=== PATIENT | male | born 1945 | race Caucasian/White ===

== ENCOUNTER 2023-01-23 15:02 | Inpatient (IN) ==
[2023-01-23] MEDS ORDERED: IOVERSOL 350 MG 125mL Prefilled Syringe IV ONE (15:18)
--- NOTE | 2023-01-23 15:40 | CT Scan Report ---
CT angio neck with con, CT head/brain wo con, CT angio head w con CLINICAL HISTORY: neuro deficit, acute stroke suspected TECHNIQUE: Contiguous axial CT images of the head were acquired from the base of the skull to the maria luisa joseluis without intravenous contrast administration. CT angiography of the head and neck was performed f ollowing intravenous administration of iodinated contrast. Coronal and sagittal MIPS were obtained fr om the axial data set and were submitted for review. Automated dose lowering techniques and/or adjus tment according to patient size were utilized for this examination. All measurements were calculated based on NASCET criteria. CT DOSE: 1296.86 mGy.cm Comparison: None available at the time of this dictation. FINDINGS: CT head: Areas of decreased attenuation are present in the periventricular and subcortical [place] bilaterally consistent with small vessel ischemic disease. Generalized cerebral atrophy with comme nsurate enlargement of the ventricles, sulci, and cisterns is also present. There is no acute intracr anial hemorrhage or evidence of acute territorial infarction. No shift of the midline structures, mas s effect, or extra-axial abnormalities are shown. Atherosclerotic calcifications are present in the intracranial segments of the internal carotid arteries. Biapical emphysema is seen. Multiple thyroid nodules are seen. CTA Neck: A 3 vessel aortic arch is shown. There is no significant atherosclerotic plaque in the aor tic arch or the origins of the innominate, left common carotid, and left subclavian arteries. There is mild calcified atherosclerotic plaque at the bifurcation of the bilateral common carotid arteries without hemodynamically significant flow stenosis. There is no dissection present. The left vertebral artery is dominant. CTA Head: The anterior and posterior cerebral circulations are patent. Atherosclerotic disease is no cornel. IMPRESSION: 1. No acute intracranial hemorrhage, evidence of acute territorial infarction, or other acute intrac ranial disease process. 2. No occlusion, hemodynamically significant stenosis, or dissection in the major cervical arteries. 3. No occlusion, hemodynamically significant stenosis, aneurysm, dissection, or arteriovenous malfor mation in the major intracranial arteries. Assessment of stenosis of the internal carotid arteries is based on NASCET criteria. ACT 112: Negative or not required by law. Electronically signed by: Vinod Wyman M.D. 01/23/2023 3:39 PM
--- NOTE | 2023-01-23 15:47 | XRay Report ---
SINGLE VIEW CHEST CLINICAL HISTORY: Neurological deficit. Stroke like symptoms. FINDINGS: An AP, portable, upright chest radiograph is compared to study dated 12/30/2022. Correlation is made with chest CT dated 06/15/2013. A right paratracheal density is unchanged and corresponds to a thyroid goiter. The heart is enlarged noting atherosclerotic calcification of the thoracic aorta. Th ere is prominence of the pulmonary vasculature. Enlargement of the central pulmonary vessels suggest pulmonary artery hypertension. Emphysema and chronic interstitial thickening is similar to previous. A bullae in the left midlung is unchanged. Airspace opacities are seen at both lung bases. No large p leural effusion or pneumothorax is seen. The skeletal structures are osteopenic. The bony thorax is g rossly intact. Degenerative change is noted throughout the thoracic spine. IMPRESSION: 1. Cardiomegaly and emphysema with prominence of the pulmonary vasculature. Correlate clinically for evidence of fluid overload/congestive change. 2. Dependent airspace opacities could represent scarring/atelectasis. An infectious/inflammatory pneu monitis is not excluded and clinical correlation will be required. ACT 112: Negative or not required by law. Electronically signed by: Yunier Ledesma M.D. 01/23/2023 3:46 PM
[2023-01-23 15:49] LABS: Basophils # (auto) 0.06 K/uL (0.00-0.20); Basophils % (auto) 0.7 %; Eosinophils # (auto) 0.18 K/uL (0.00-0.50); Eosinophils % (auto) 2.1 %; Hematocrit (blood only) 43.4 % (42.0-52.0); Hemoglobin 13.9 g/dl (14.0-18.0); Immature Granulocytes # (auto) 0.07 K/uL (0.01-0.20); Immature Granulocytes % (auto) 0.8 %; Lymphocytes # (auto) 0.91 K/uL (1.20-3.40); Lymphocytes % (auto) 10.9 %; Mean Corpuscular Hemoglobin 29.6 pg (25.0-34.0); Mean Corpuscular Volume 92.3 fL (80.0-100.0); Mean Platelet Volume 9.4 fL (9.4-12.4); Monocytes % (auto) 8.4 %; Neutrophils # (auto) 6.46 K/uL (1.40-6.50); Neutrophils % (auto) 77.1 %; Platelet Count 381 K/uL (130-400); RDW Coefficient of Variation 14.1 % (11.5-14.5); RDW Standard Deviation 47.8 fL (36.4-46.3); White Blood Count 8.38 K/ul (4.8-10.8)
[2023-01-23] MEDS ORDERED: LORazepam 2 MG/1 ML VIAL ONE (15:55)
[2023-01-23 16:08] LABS: INR 1.1 (0.9-1.1); Partial Thromboplastin Time 29.3 Seconds (21.0-31.0); Prothrombin Time 12.1 Seconds (9.0-12.0)
[2023-01-23] MEDS ORDERED: levETIRAcetam 1,000 MG in 0.9 % SODIUM CHLORIDE 100 ML IV ONE (16:15)
[2023-01-23] MEDS ORDERED: LORazepam 2 MG/1 ML VIAL IV ONE (16:15)
[2023-01-23 16:23] LABS: Albumin Globulin Ratio 0.7 (0.9-2); Albumin Level 3.2 gm/dl (3.4-5.0); BUN Creatinine Ratio 17.9 (10-20); Bilirubin,Total 0.5 mg/dl (0.2-1.0); Calcium 9.8 mg/dl (8.6-10.3); Creatinine Clr Calc Pharmacy 43.2 ml/min; Globulin 4.8 gm/dl (2.5-4.0); Magnesium 1.9 mg/dl (1.7-2.4); Potassium 4.2 mmol/L (3.5-5.1)
[2023-01-23 16:28] LABS: Troponin I High Sensitivity 5.8 pg/ml (0-20)
--- NOTE | 2023-01-23 16:28 | Emergency Department Note ---
Impression & Plan Altered mental status ED Provider Note Diagnosis: Altered mental status Disposition: Admission INFORMANT: EMS, patient's CHIEF COMPLAINT: Acute altered mental status HPI: Patient 77-year-old male presenting with reported change in mental status acutely. EMS reports per family at 2:10 PM he was in the kitchen at home and acutely started to act strange and do weird things that are not normal for him. Patient would not talk. He however was walking on his own accord. Patient has had no prior strokes. Patient no reports of trauma. Patient was at his primary care physician's office this morning and was his normal self. Patient arrives with a good blood sugar, no hypertension. Patient not answering any questions however moving all fours. PAST MEDICAL HISTORY: See Below PAST SURGICAL HISTORY: See Below SOCIAL HISTORY: See Below HOME MEDICATIONS: See Below ALLERGIES: See Below VITALS: See Below PHYSICAL EXAMINATION: GENERAL: Well appearing, well nourished, NAD, non-toxic. EYE EXAM: Normal conjunctiva. OROPHARYNX: Moist mucus membranes. Grossly normal dentition. NECK: Supple, LUNGS: Clear to auscultation. Normal chest wall mechanics. HEART: NSR ABDOMEN: Abdomen soft, non-tender, normo-active bowel sounds, no masses, no rebound or guarding BACK: No CVA TTP. SKIN: No rashes and no bruising. UPPER EXTREMITIES: Upper extremities are grossly normal LOWER EXTREMITIES: Grossly normal, no edema. NEURO EXAM: A&O x3,, normal speech, moves all 4 extremities PSYCH: Cooperative MEDICAL DECISION MAKING: Patient is a 77-year-old male presenting with an acute onset of altered mental status. Patient's symptoms started 2:10 PM. Patient has no focal deficits curr ently. Patient's bottom teeth are out there may be a slight right-sided facial droop but patient will not smile for us or listen to commands. Patient not speaking so cannot assess his speech and if it is slurred. Patient moving all fours but a little weaker in the right lower extremity. Patient was activated as a code phillips upon my assessment within the first 10 minutes of arrival. Telestroke paged as of 3:25 PM Discussion with telestroke physician at 3:40 PM Discussed patient's case with telestroke physician in the room at 350 she recommends giving Ativan due to right-sided facial twitching and continuing to make TNK decision. Recommending giving Keppra 1 g load, also to perform MRI wi th quick segments. 1700 MRI performed and reviewed by telestroke physician no stroke present. No TNK administration advised. Recommends loading with another 1 g of Keppra and starting Keppra twice daily admission to the hospital for consultation with neurology team. Patient's case discussed with his and she is agreeable to current treatment plan. Patient's case discussed with the [facility] service who accepts the patient for further treatment evaluation. lab interpretation: No leukocytosis, no electrolyte abnormalities Triage Nursing notes reviewed and agree them. Vital Signs: reviewed and remarkable for: no significant abnormalities Diagnostics, as interpreted by me: ECG: Normal sinus rhythm no ST segment elevation or depressions Cardiac Monitoring: NSR Past Med/Surg History Social History Smoking Status: Unknown if ever smoked Tobacco Type: Cigarettes Preferred Language: [place] Feels Safe at Home: Yes Allergies Allergies Allergy/AdvReac Type Severity Reaction Status Date / Time No Known Allergies Allergy Unverified 01/23/23 15:22 Home Meds Home Medications Medication Instructions Recorded Confirmed albuterol sulfate 2.5 mg/3 mL 2.5 mg continuous nebulization Q4 01/23/23 01/23/23 (0.083 %) solution for nebulization PRN Wheezing amlodipine 2.5 mg-benazepril 10 mg 1 cap PO QAM 01/23/23 01/23/23 capsule cyanocobalamin (vitamin B-12) 1,000 mcg IM MONTHLY 01/23/23 01/23/23 1,000 mcg/mL injection solution prednisone 5 mg tablet 5 mg PO QAM PRN RA flares 01/23/23 01/23/23 Results & Data (ED) Vital Signs Vital Signs - 24 hr 01/23/23 14:54 01/23/23 16:59 01/23/23 16:17 Temperature 36.4 C L Temperature Source Axillary Pulse Rate 82 76 78 Pulse Rate from SpO2 Sensor 78 Respiratory Rate 14 18 Blood Pressure 142/82 H Blood Pressure Mean 102 Pulse Oximetry 95 97 Oxygen Delivery Method Room Air Sepsis Recent Fever Within 48 Hours No Sepsis New/Unexplained Change in Mental Status No Sepsis Action Taken by Nursing No Action Required 01/23/23 17:04 01/23/23 17:06 01/23/23 17:06 Temperature Temperature Source Pulse Rate 85 Pulse Rate from SpO2 Sensor 76 78 Respiratory Rate 11 L Blood Pressure 148/84 H Blood Pressure Mean 105 Pulse Oximetry 98 91 Oxygen Delivery Method Sepsis Recent Fever Within 48 Hours Sepsis New/Unexplained Change in Mental Status Sepsis Action Taken by Nursing 01/23/23 17:10 01/23/23 17:10 01/23/23 17:15 Temperature Temperature Source Pulse Rate 78 Pulse Rate from SpO2 Sensor 78 Respiratory Rate 19 Blood Pressure 139/84 156/84 H Blood Pressure Mean 102 108 Pulse Oximetry 96 Oxygen Delivery Method Sepsis Recent Fever Within 48 Hours Sepsis New/Unexplained Change in Mental Status Sepsis Action Taken by Nursing 01/23/23 17:15 Temperature Temperature Source Pulse Rate 83 Pulse Rate from SpO2 Sensor 81 Respiratory Rate 16 Blood Pressure Blood Pressure Mean Pulse Oximetry 96 Oxygen Delivery Method Sepsis Recent Fever Within 48 Hours Sepsis New/Unexplained Change in Mental Status Sepsis Action Taken by Nursing Laboratory Data 01/23/23 15:14 01/23/23 15:14 Lab Results 01/23/23 01/23/23 01/23/23 Range/Units 15:13 15:14 15:14 WBC 8.38 (4.8-10.8) K/ul RBC 4.70 (4.70-6.10) M/uL Hgb 13.9 L (14.0-18.0) g/dl Hct 43.4 (42.0-52.0) % MCV 92.3 (80.0-100.0) fL MCH 29.6 (25.0-34.0) pg MCHC 32.0 (32.0-36.0) g/dL RDW Std Deviation 47.8 H (36.4-46.3) fL RDW Coeff of Clint 14.1 (11.5-14.5) % Plt Count 381 (130-400) K/uL MPV 9.4 (9.4-12.4) fL Immature Gran % (Auto) 0.8 % Neut % (Auto) 77.1 % Lymph % (Auto) 10.9 % [place] % (Auto) 8.4 % Eos % (Auto) 2.1 % Baso % (Auto) 0.7 % Neut # (Auto) 6.46 (1.40-6.50) K/uL Lymph # (Auto) 0.91 L (1.20-3.40) K/uL [place] # (Auto) 0.70 H (0.11-0.59) K/uL Eos # (Auto) 0.18 (0.00-0.50) K/uL Baso # (Auto) 0.06 (0.00-0.20) K/uL Immature Gran # (Auto) 0.07 (0.01-0.20) K/uL PT 12.1 H (9.0-12.0) Seconds INR 1.1 (0.9-1.1) APTT 29.3 (21.0-31.0) Seconds PTT Ratio 1.0 Sodium (136-145) mmol/L Potassium (3.5-5.1) mmol/L Chloride (98-107) mmol/L Carbon Dioxide (21-32) mmol/L Anion Gap (3-11) BUN (6-23) mg/dl Creatinine (0.6-1.4) mg/dl Est Cr Clr Drug Dosing ml/min Est GFR ( Amer) ml/min Est GFR (Non-Af Amer) ml/min BUN/Creatinine Ratio (10-20) Glucose (70-99(Fasting)) mg/dl POC Glucose 144 H (70-99) mg/dl Calcium (8.6-10.3) mg/dl Magnesium (1.7-2.4) mg/dl Total Bilirubin (0.2-1.0) mg/dl AST (13-39) U/L ALT (7-52) U/L Alkaline Phosphatase (34-104) U/L Troponin I High Sens (0-20) pg/ml Total Protein (6.0-8.3) gm/dl Albumin (3.4-5.0) gm/dl Globulin (2.5-4.0) gm/dl Albumin/Globulin Ratio (0.9-2) // Range/Units 15:14 WBC (4.8-10.8) K/ul RBC (4.70-6.10) M/uL Hgb (14.0-18.0) g/dl Hct (42.0-52.0) % MCV (80.0-100.0) fL MCH (25.0-34.0) pg MCHC (32.0-36.0) g/dL RDW Std Deviation (36.4-46.3) fL RDW Coeff of Clint (11.5-14.5) % Plt Count (130-400) K/uL MPV (9.4-12.4) fL Immature Gran % (Auto) % Neut % (Auto) % Lymph % (Auto) % [place] % (Auto) % Eos % (Auto) % Baso % (Auto) % Neut # (Auto) (1.40-6.50) K/uL Lymph # (Auto) (1.20-3.40) K/uL [place] # (Auto) (0.11-0.59) K/uL Eos # (Auto) (0.00-0.50) K/uL Baso # (Auto) (0.00-0.20) K/uL Immature Gran # (Auto) (0.01-0.20) K/uL PT (9.0-12.0) Seconds INR (0.9-1.1) APTT (21.0-31.0) Seconds PTT Ratio Sodium 136 (136-145) mmol/L Potassium 4.2 (3.5-5.1) mmol/L Chloride 101 (98-107) mmol/L Carbon Dioxide 27 (21-32) mmol/L Anion Gap 8 (3-11) BUN 24 H (6-23) mg/dl Creatinine 1.34 (0.6-1.4) mg/dl Est Cr Clr Drug Dosing 43.2 ml/min Est GFR ( Amer) 58.0 ml/min Est GFR (Non-Af Amer) 50.0 ml/min BUN/Creatinine Ratio 17.9 (10-20) Glucose 146 H (70-99(Fasting)) mg/dl POC Glucose (70-99) mg/dl Calcium 9.8 (8.6-10.3) mg/dl Magnesium 1.9 (1.7-2.4) mg/dl Total Bilirubin 0.5 (0.2-1.0) mg/dl AST 11 L (13-39) U/L ALT 8 (7-52) U/L Alkaline Phosphatase 60 (34-104) U/L Troponin I High Sens 5.8 (0-20) pg/ml Total Protein 8.0 (6.0-8.3) gm/dl Albumin 3.2 L (3.4-5.0) gm/dl Globulin 4.8 H (2.5-4.0) gm/dl Albumin/Globulin Ratio 0.7 L (0.9-2) Administered Medications Discontinued Medications Levetiracetam 1,000 mg/ Sodium (Chloride) 110 mls @ 440 mls/hr IV NOW ONE Stop: 01/23/23 16:29 Last Admin: 01/23/23 17:35 Dose: 440 mls/hr Documented By: SHAGUFTA Levetiracetam 1,000 mg/ Sodium (Chloride) 110 mls @ 440 mls/hr IV NOW STA Stop: 01/23/23 17:21 Last Admin: 01/23/23 16:21 Dose: 440 mls/hr Documented By: SHAGUFTA Ioversol (Ioversol 350 Mg 125ml Prefilled Syringe) 119 ml IV ONCE ONE Stop: 01/23/23 15:19 Last Admin: 01/23/23 15:19 Dose: 119 ml Documented By: JOANNA Lorazepam (Lorazepam 2 Mg/1 Ml Vial) Confirm Administered Dose 2 mg .ROUTE .STK- MED ONE Stop: 01/23/23 15:56 Last Admin: 01/23/23 17:36 Dose: Not Given Documented By: SHAGUFTA Lorazepam (Lorazepam 2 Mg/1 Ml Vial) 1 mg IV NOW ONE Stop: 01/23/23 16:16 Last Admin: 01/23/23 15:57 Dose: 1 mg Documented By: SHAGUFTA Imaging Data Radiologist's Impression: Chest X-Ray 01/23/23 15:11 SINGLE VIEW CHEST CLINICAL HISTORY: Neurological deficit. Stroke like symptoms. FINDINGS: An AP, portable, upright chest radiograph is compared to study dated 12/30/2022. Correlation is made with chest CT dated 06/15/2013. A right paratracheal density is unchanged and corresponds to a thyroid goiter. The heart is enlarged noting atherosclerotic calcification of the thoracic aorta. There is prominence of the pulmonary vasculature. Enlargement of the central pulmonary vessels suggest pulmonary artery hypertension. Emphysema and chronic interstitial thickening is similar to previous. A bullae in the left midlung is unchanged. Airspace opacities are seen at both lung bases. No large pleural effusion or pneumothorax is seen. The skeletal structures are osteopenic. The bony thorax is grossly intact. Degenerative change is noted throughout the thoracic spine. IMPRESSION: 1. Cardiomegaly and emphysema with prominence of the pulmonary vasculature. Correlate clinically for evidence of fluid overload/congestive change. 2. Dependent airspace opacities could represent scarring/atelectasis. An infectious/inflammatory pneumonitis is not excluded and clinical correlation will be required. ACT 112: Negative or not required by law. Electronically signed by: Yunier Ledesma M.D. 01/23/2023 3:[address] 01/23/23 15:11 CT angio neck with con, CT head/brain wo con, CT angio head w con CLINICAL HISTORY: neuro deficit, acute stroke suspected TECHNIQUE: Contiguous axial CT images of the head were acquired from the base of the skull to the vertex without intravenous contrast administration. CT angiography of the head and neck was performed following intravenous administration of iodinated contrast. Coronal and sagittal MIPS were obtained from the axial data set and were submitted for review. Automated dose lowering techniques and/or adjustment according to patient size were utilized for this examination. All measurements were calculated based on NASCET criteria. CT DOSE: 1296.86 mGy.cm Comparison: None available at the time of this dictation. FINDINGS: CT head: Areas of decreased attenuation are present in the periventricular and subcortical white matter bilaterally consistent with small vessel ischemic disease. Generalized cerebral atrophy with commensurate enlargement of the frandy tricles, sulci, and cisterns is also present. There is no acute intracranial hemorrhage or evidence of acute territorial infarction. No shift of the midline structures, mass effect, or extra-axial abnormalities are shown. Atherosclerotic calcifications are present in the intracranial segments of the internal carotid arteries. Biapical emphysema is seen. Multiple thyroid nodules are seen. CTA Neck: A 3 vessel aortic arch is shown. There is no significant atherosclerotic plaque in the aortic arch or the origins of the innominate, left common carotid, and left subclavian arteries. There is mild calcified atherosclerotic plaque at the bifurcation of the bilateral common carotid arteries without hemodynamically significant flow stenosis. There is no dissection present. The left vertebral artery is dominant. CTA Head: The anterior and posterior cerebral circulations are patent. Atherosclerotic disease is noted. IMPRESSION: 1. No acute intracranial hemorrhage, evidence of acute territorial infarction, or other acute intracranial disease process. 2. No occlusion, hemodynamically significant stenosis, or dissection in the major cervical arteries. 3. No occlusion, hemodynamically significant stenosis, aneurysm, dissection, or arteriovenous malformation in the major intracranial arteries. Assessment of stenosis of the internal carotid arteries is based on NASCET criteria. ACT 112: Negative or not required by law. Electronically signed by: Vinod Wyman M.D. 01/23/2023 3:39 PM Head CTA 01/23/23 15:11 CT angio neck with con, CT head/brain wo con, CT angio head w con CLINICAL HISTORY: neuro deficit, acute stroke suspected TECHNIQUE: Contiguous axial CT images of the head were acquired from the base of the skull to the vertex without intravenous contrast administration. CT angiography of the head and neck was performed following intravenous administration of iodinated contrast. Coronal and sagittal MIPS were obtained from the axial data set and were submitted for review. Automated dose lowering techniques and/or adjustment according to patient size were utilized for this examination. All measurements were calculated based on NASCET criteria. CT DOSE: 1296.86 mGy.cm Comparison: None available at the time of this dictation. FINDINGS: CT head: Areas of decreased attenuation are present in the periventricular and subcortical white matter bilaterally consistent with small vessel ischemic disease. Generalized cerebral atrophy with commensurate enlargement of the ventricles, sulci, and cisterns is also present. There is no acute intracranial hemorrhage or evidence of acute territorial infarction. No shift of the midline structures, mass effect, or extra-axial abnormalities are shown. Atherosclerotic calcifications are present in the intracranial segments of the internal carotid arteries. Biapical emphysema is seen. Multiple thyroid nodules are seen. CTA Neck: A 3 vessel aortic arch is shown. There is no significant athero sclerotic plaque in the aortic arch or the origins of the innominate, left common carotid, and left subclavian arteries. There is mild calcified atherosclerotic plaque at the bifurcation of the bilateral common carotid arteries without hemodynamically significant flow stenosis. There is no dissecti on present. The left vertebral artery is dominant. CTA Head: The anterior and posterior cerebral circulations are patent. Atherosclerotic disease is noted. IMPRESSION: 1. No acute intracranial hemorrhage, evidence of acute territorial infarction, or other acute intracranial disease process. 2. No occlusion, hemodynamically significant stenosis, or dissection in the major cervical arteries. 3. No occlusion, hemodynamically significant stenosis, aneurysm, dissection, or arteriovenous malformation in the major intracranial arteries. Assessment of stenosis of the internal carotid arteries is based on NASCET criteria. ACT 112: Negative or not required by law. Electronically signed by: Vinod Wyman M.D. 01/23/2023 3:39 PM Neck CTA 01/23/23 15:11 CT angio neck with con, CT head/brain wo con, CT angio head w con CLINICAL HISTORY: neuro deficit, acute stroke suspected TECHNIQUE: Contiguous axial CT images of the head were acquired from the base of the skull to the vertex without intravenous contrast administration. CT angiography of the head and neck was performed following intravenous administration of iodinated contrast. Coronal and sagittal MIPS were obtained from the axial data set and were submitted for review. Automated dose lowering techniques and/or adjustment according to patient size were utilized for this examination. All measurements were calculated based on NASCET criteria. CT DOSE: 1296.86 mGy.cm Comparison: None available at the time of this dictation. FINDINGS: CT head: Areas of decreased attenuation are present in the periventricular and subcortical white matter bilaterally consistent with small vessel ischemic disease. Generalized cerebral atrophy with commensurate enlargement of the ventricles, sulci, and cisterns is also present. There is no acute intracranial hemorrhage or evidence of acute territorial infarction. No shift of the midline structures, mass effect, or extra-axial abnormalities are shown. Atherosclerot ic calcifications are present in the intracranial segments of the internal carotid arteries. Biapical emphysema is seen. Multiple thyroid nodules are seen. CTA Neck: A 3 vessel aortic arch is shown. There is no significant atherosclerotic plaque in the aortic arch or the origins of the innominate, left common carotid, and left subclavian arteries. There is mild calcified atherosclerotic plaque at the bifurcation of the bilateral common carotid arteries without hemodynamically significant flow stenosis. There is no dissection present. The left vertebral artery is dominant. CTA Head: The anterior and posterior cerebral circulations are patent. Atherosclerotic disease is noted. IMPRESSION: 1. No acute intracranial hemorrhage, evidence of acute territorial infarction, or other acute intracranial disease process. 2. No occlusion, hemodynamically significant stenosis, or dissection in the major cervical arteries. 3. No occlusion, hemodynamically significant stenosis, aneurysm, dissection, or arteriovenous malformation in the major intracranial arteries. Assessment of stenosis of the internal carotid arteries is based on NASCET criteria. ACT 112: Negative or not required by law. Electronically signed by: Vinod Wyman M.D. 01/23/2023 3:39 PM Brain MRI 01/23/23 16:08 MRI OF THE BRAIN WITHOUT IV CONTRAST CLINICAL HISTORY: Strokelike symptoms. COMPARISON STUDY: CT and CT angiogram of the brain dated 01/23/2023. TECHNIQUE: Fast scan MRI of the brain was performed to assess for acute stroke. This included axial diffusion-weighted images, axial ADC map, an axial gradient sequence, and a coronal FLAIR sequence. IV contrast was not administered for this examination. Note that this is not considered a full diagnostic MRI examination of the brain. FINDINGS: Brain parenchyma: There is age-related involutional change noting moderate to advanced subcortical and periventricular microangiopathic change. There is no evidence of hemorrhage or mass effect. There is no restricted diffusion typical for acute ischemia. Phillips-white matter differentiation appears preserved. Minimal dural thickening versus artifact is suggested overlying the left frontal convexity. This could not be corroborated on the CT images and is of doubtful significance. There there is no evidence of extra-axial fluid collection. There is linear calcification along the wall of the right lateral ventricle. Ventricles, sulci, and cisterns: Prominent secondary to involutional change. Sinuses and mastoids: Clear. Calvarium: No calvarial lesion is identified. IMPRESSION: There is no evidence of hemorrhage, mass effect, or acute ischemia. ACT 112: Negative or not required by law. Electronically signed by: Yunier Ledesma M.D. 01/23/2023 5:19 PM Discharge Plan Visit Data Chief Complaint: Altered Mental Status ED Provider: Rudi Alvarado Discharge Problem: Altered mental status Forms Stand Alone Forms: My [facility] [employer] Prescriptions Prescriptions: No Action amlodipine-benazepril 2.5-10 mg capsule 1 cap PO QAM cyanocobalamin (vitamin B-12) 1,000 mcg/mL solution 1,000 mcg IM MONTHLY albuterol sulfate 2.5 mg /3 mL (0.083 %) solution for nebulization 2.5 mg continuous nebulization Q4 PRN (Reason: Wheezing) prednisone 5 mg tablet 5 mg PO QAM PRN (Reason: RA flares) Referrals Referrals: William Joseph MD [Primary Care Provider] -
[2023-01-23] MEDS ORDERED: levETIRAcetam 1,000 MG in 0.9 % SODIUM CHLORIDE 100 ML IV STA (17:07)
--- NOTE | 2023-01-23 17:21 | Magnetic Resonance Report ---
MRI OF THE BRAIN WITHOUT IV CONTRAST CLINICAL HISTORY: Strokelike symptoms. COMPARISON STUDY: CT and CT angiogram of the brain dated 01/23/2023. TECHNIQUE: Fast scan MRI of the brain was performed to assess for acute stroke. This included axial d iffusion-weighted images, axial ADC map, an axial gradient sequence, and a coronal FLAIR sequence. IV contrast was not administered for this examination. Note that this is not considered a full diagnost ic MRI examination of the brain. FINDINGS: Brain parenchyma: There is age-related involutional change noting moderate to advanced subcortical an d periventricular microangiopathic change. There is no evidence of hemorrhage or mass effect. There i s no restricted diffusion typical for acute ischemia. Phillips-white matter differentiation appears prese rved. Minimal dural thickening versus artifact is suggested overlying the left frontal convexity. Thi s could not be corroborated on the CT images and is of doubtful significance. There there is no evide nce of extra-axial fluid collection. There is linear calcification along the wall of the right latera l ventricle. Ventricles, sulci, and cisterns: Prominent secondary to involutional change. Sinuses and mastoids: Clear. Calvarium: No calvarial lesion is identified. IMPRESSION: There is no evidence of hemorrhage, mass effect, or acute ischemia. ACT 112: Negative or not required by law. Electronically signed by: Yunier Ledesma M.D. 01/23/2023 5:19 PM
[2023-01-23] MEDS ORDERED: MAGNESIUM HYDROXIDE SUSP 30 ML UDC PO PRN (17:35)
[2023-01-23] MEDS ORDERED: ACETAMINOPHEN 325 MG TAB PO PRN (17:35)
[2023-01-23] MEDS ORDERED: ONDANSETRON INJ 2 MG/ML 2 ML VIAL IV PRN (17:35)
[2023-01-23] MEDS ORDERED: POLYETHYLENE (MIRALAX) 17 GM PACK PO PRN (17:35)
[2023-01-23] MEDS ORDERED: ALUMINUM/MAGNESIUM SUSP 30 ML UDC PO PRN (17:35)
--- NOTE | 2023-01-23 19:50 | History & Physical Report ---
Date of Service January 23, 2023 Assessment & Plan (1) Mixed aphasia: (2) HTN (hypertension): (3) Altered mental status: (4) Rheumatoid arthritis: (5) COPD (chronic obstructive pulmonary disease): (6) Fever of unknown origin: Plan Mr. Garcia is a 77-year-old male that presented to the ED after being noted to have altered mental status changes. Last well-known 1:05 PM 01/23/2023. Initially patient was not speaking and would not smile or follow any commands. Telestroke was paged at 3:25 PM and was recommended to give 1 g loading Keppra and obtain neurology imaging MRI was performed and negative no TNK administration was advised at that time and he was recommended to administer another 1 g of Keppra with continuation of Keppra 500 mg twice daily daily starting tomorrow. Chest x-ray negative for acute cardiopulmonary disease, head CT, head neck CTA negative for ischemia, midline shift, acute subdural or intracranial hemorrhage. Brain MRI negative for acute ischemia, masses or tumors or hemorrhage. Will repeat head CT in AM. reports intermittent fe vers over the past few days with the most recent one being yesterday. No leukocytosis WBC 8.38, no electrolyte disturbance. Creatinine 1.34 baseline creatinine per outpatient records 1.2-1.4 Recent ER visit on 12/30/2022 status post fall when he was leaving his home to take his for an outpatient follow-up appointment in [place]. He did report at that time some increased ANDERSEN and fatigue. No head injuries but was found to have a left finger dislocation/fracture. Since December 30 he has been otherwise well outside of chronic rheumatoid arthritis joint pain. LYME negative on 11/12/22. Has recently had a abnormal chest CT with lymphadenopathy and was scheduled to have a bronchoscopy but canceled due to the drive. Additional past medical history includes rheumatoid arthritis (on Humira Q 8 weeks), spinal stenosis, HTN, pernicious anemia, COPD emphysema. Was advised to follow up with Ortho.Patient saw Pulmonary on 11/16 with the following recommendations: Bronchoscopy under general anesthesia, Blood for connective tissue screening, Spirogram, Bronchodilator nebulization and flutter device. Patient canceled bronch as he did not want to drive to [facility] for it and wanted to possibly switch to [facility] for further evaluation. Complex gentleman with mixed aphagia and negative neuro imaging; will repeat head CT in AM and obtain blood, urine, and sputum cultures. Additionally with chronic lung disease, intermittent fever of unknown origin, deconditioned and sedentary from rheumatoid arthritis. Mixed aphasia: Altered mental status: Fever of unknown origin: acute uncontrolled Intermittent fevers; non toxic in appearance No leukocytosis WBC 8.38 Chest x-ray negative for acute cardiopulmonary disease Head CT, head neck CTA negative for ischemia, midline shift, acute subdural or intracranial hemorrhage. Brain MRI negative for acute ischemia, masses or tumors or hemorrhage; Will repeat head CT in AM. Tele stroke work up in ED; no TNK 2 G Keppra in ED; continue Keppra 500 mg IV BID in AM Obtain Echo and obtain EEG CXR in AM Check Vitamin B12 level; B12 was 1244 on 11/12/22 Blood, sputum, and urine cultures Gentle fluids @ 60mL/hour Start Ceftriaxone + Doxy and adjust based on culture results Rheumatoid arthritis: Chronic stable On Humira q. 8 weeks; hold while inpatient Takes prednisone 5 mg daily; continue Consider infected joint; correlate on exam COPD emphysema and bronchiectasis: acute uncontrolled Cough with thick yellow sputum Started on Ceftriaxone + Doxy in ED; reassess based on blood, urine and sputum cultures CT scan on 11/14: CT SCAN 11/14/22: 1. Extensive predominantly ground-glass nodularity with tree-in-bud morphology most pronounced lower lungs. Likely inflammatory/infectious. 2. Some additional more solid small lung nodularity which could also be inflammatory/infectious however close follow-up CT in 3 months suggested to assure stability/resolution. 3. Advanced emphysema. 4. Bilateral slightly bulky axillary lymphadenopathy, nonspecific. Correlate clinically. 5. See above for other details. 6. Heterogeneous enlarged right lobe of thyroid with suspected multiple internal nodules. Consider future thyroid ultrasound. Pt saw Pulmonary on 11/16 with the following recommendations: Bronchoscopy under general anesthesia, Blood for connective tissue screening, Spirogram, Bronchodilator nebulization and flutter device. Patient canceled bronch as he did not want to drive to [facility] for it and wanted to possibly switch to [facility] for further evaluation. CKD: chronic stable Creatinine 1.34; baseline per [facility] records 1.2-1.4 Hypertension: Chronic stable Takes amlodipine/benazepril; continue Dyslipidemia: chronic stable Does not take any medications for this Lipid panel on 11/12/22: TG 115, HDL 41, LDL 114 Disposition: PCP: Dr. Joseph CODE STATUS: Full code VTE prophylaxis:TEDS + SCDS for now I spent a total of 87 minutes coordinating, documenting, and providing care for this patient excluding time spent in the performance of separately billed services. All of the aforementioned completed while collaborating with the assigned attending physician for a full treatment plan. Please see their addendum for further details. Admission and Anticipated Discharge Date Admission Date: January 23, 2023 History of Present Illness Chief Complaint: AMS Primary Care Provider: William Joseph MD Mr. Garcia is a 77-year-old male that presented to the ED after being noted to have altered mental status changes. Last well-known 1:05 PM 01/23/2023. Initially patient was not speaking and would not smile or follow any commands. Telestroke was paged at 3:25 PM and was recommended to give 1 g loading Keppra and obtain neurology imaging MRI was performed and negative no TNK administration was advised at that time and he was recommended to administer another 1 g of Keppra with continuation of Keppra 500 mg twice daily daily starting tomorrow. Chest x-ray negative for acute cardiopulmonary disease, head CT, head neck CTA negative for ischemia, midline shift, acute subdural or intracranial hemorrhage. Brain MRI negative for acute ischemia, masses or tumors or hemorrhage. Will repeat head CT in AM. reports intermittent fevers over the past few days with the most recent one being yesterday. No leukocytosis WBC 8.38, no electrolyte disturbance. Creatinine 1.34 baseline creatinine per outpatient records 1.2-1.4 Recent ER visit on 12/30/2022 status post fall when he was leaving his home to take his for an outpatient follow-up appointment in [place]. He did report at that time some increased ANDERSEN and fatigue. No head injuries but was found to have a left finger dislocation/fracture. Since December 30 he has been otherwise well outside of [facility] rheumatoid arthritis joint pain. Has recently had a abnormal chest CT with lymphadenopathy and was scheduled to have a bronchoscopy but canceled due to the drive. Additional past medical history includes rheumatoid arthritis (on Humira Q 8 weeks), spinal stenosis, HTN, pernicious anemia, COPD emphysema. Was advised to follow up with Ortho. Per review of outpatient records patient reported at his pulmonary appointment that he has had recent weight loss with decreased appetite. CT scan on 11/14: CT SCAN 11/14/22: 1. Extensive predominantly ground-glass nodularity with tree-in-bud mo rphology most pronounced lower lungs. Likely inflammatory/infectious. 2. Some additional more solid small lung nodularity which could also be inflammatory/infectious however close follow-up CT in 3 months suggested to assure stability/resolution. 3. Advanced emphysema. 4. Bilateral slightly bulky axillary lymphadenopathy, nonspecific. Correlate clinically. 5. See above for other details. 6. Heterogeneous enlarged right lobe of thyroid with suspected multiple internal nodules. Consider future thyroid ultrasound. Patient saw Pulmonary on 11/16 with the following recommendations: Bronchoscopy under general anesthesia (no C arm and no EBUS), Blood for connective tissue screening, Spirogram, Bronchodilator nebulization and flutter device. Patient canceled bronchoscopy as he did not want to drive to [facility] for it and wanted to possibly switch to [facility] for further evaluation. On examination, patients at bedside. Pt unable to converse or follow commands; by the end of our conversation he was able to shrug shoulders and wave goodbye to me. Otherwise, unable to provide any history. reports improvement from when they arrived to ED as patient was able to laugh and hold her hand. TRISTON. is ill herself with cancer and colostomy. She states they depend heavily on each other. Open to inpatient rehab. States that he does not have an official advanced directive; knows that he would not want any halfway nutrition if it would come to that. 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 Significant smoking history of about [id number] smoking history; q uit in 1990. No pets at home and on no supplemental O2. Complex gentleman with mixed aphagia and negative neuro imaging; will repeat head CT in AM and obtain blood, urine, and sputum cultures. Additionally with chronic lung disease, including bronchiectasis, intermittent fever of unknown origin, deconditioned and sedentary from rheumatoid arthritis. Patient will be admitted for further evaluation and management. Please see A/P for further details. Allergies Allergy/AdvReac Type Severity Reaction Status Date / Time No Known Allergies Allergy Unverified 01/23/23 15:22 Home Medications Medication Instructions Recorded Confirmed Type adalimumab 40 mg/0.8 mL 40 mg subcut Q14D 01/23/23 01/23/23 History subcutaneous pen kit (Humira Pen) albuterol sulfate 2.5 mg/3 mL 2.5 mg continuous nebulization Q4 01/23/23 01/23/23 History (0.083 %) solution for nebulization PRN Wheezing amlodipine 2.5 mg-benazepril 10 mg 1 cap PO QAM 01/23/23 01/23/23 History capsule cyanocobalamin (vitamin B-12) 1,000 mcg IM MONTHLY 01/23/23 01/23/23 History 1,000 mcg/mL injection solution prednisone 5 mg tablet 5 mg PO QAM PRN RA flares 01/23/23 01/23/23 History Past Med/Surg History Medical History (Updated 01/23/23 @ 20:32 by MARCY Enciso) Fever of unknown origin HTN (hypertension) Pernicious anemia Rheumatoid arthritis Spinal stenosis Surgical History (Updated 01/23/23 @ 20:30 by MARCY Enciso) No pertinent past surgical history Social History (Updated 01/23/23 @ 20:31 by MARCY Enciso) Smoking Status: Former smoker Tobacco Type: Cigarettes Second Hand Exposure: No; Do You Dip or Chew Tobacco: No; Tobacco Cessation Education Requested by Patient: No Hx Alcohol Use: No Hx Substance Use: No Preferred Language: Nepali Communication Ability: Impaired Damper Fitter Required: No Beliefs That Will Affect Care: None Current Living Situation: Spouse Other Information That Helps Us Care for You: No Feels Safe at Home: Yes Safety Concerns: Feels Safe At This Time Assistive Devices: Cane, Denture - Upper, Denture - Lower, Glasses and Wheelchair Review of Systems Review of Systems: Unobtainable due to cognitive status Physical Exam Physical Exam: Neuro: AAOx1, PERRLA, mixed aphagia, memory changes, NIH 7. Pt able to shrug shoulders and wave hands on command HEENT: head normocephalic, moist mucus membranes CV: S1/S2, (-) M/G/R, (-) edema, cap refill < 3 seconds Resp: Lungs CTA in all abarca. On RA GI: Abdomen S/NT/ND, Ax4 bowel sounds, (-) CVA tenderness Musculoskeletal: 5/5 B/L UE strength, 5/5 B/L LE strength. No gait disturbance Skin: (-) rashes , (-) erythema. (+) bunyons on bl great toes with erythema. Psych: unable to assess; laughing unintentionally Results & Data Results & Data Vital Signs (Past 12 Hours) Vital Signs Temp Pulse Resp BP Pulse Ox O2 Del Method 01/23/23 19:27 69 16 136/69 94 Room Air 01/23/23 18:45 69 16 94 01/23/23 18:30 68 18 92 01/23/23 18:15 68 14 95 01/23/23 18:00 70 15 97 01/23/23 17:50 72 01/23/23 17:15 83 16 96 01/23/23 17:15 156/84 H 01/23/23 17:10 78 19 96 01/23/23 17:10 139/84 01/23/23 17:06 148/84 H 01/23/23 17:06 85 11 L 91 01/23/23 17:04 98 01/23/23 16:17 78 18 97 01/23/23 16:59 76 01/23/23 14:54 36.4 C L 82 14 142/82 H 95 Room Air Laboratory Results Short CBC 01/23/23 Range/Units 15:14 WBC 8.38 (4.8-10.8) K/ul Hgb 13.9 L (14.0-18.0) g/dl Hct 43.4 (42.0-52.0) % Plt Count 381 (130-400) K/uL BMP 01/23/23 15:14 Sodium 136 Potassium 4.2 Chloride 101 Carbon Dioxide 27 BUN 24 H Creatinine 1.34 Glucose 146 H Calcium 9.8 Liver Function 01/23/23 Range/Units 15:14 Total Bilirubin 0.5 (0.2-1.0) mg/dl AST 11 L (13-39) U/L ALT 8 (7-52) U/L Alkaline Phosphatase 60 (34-104) U/L Albumin 3.2 L (3.4-5.0) gm/dl Diagnostic Findings Chest X-Ray 01/23/23 15:11 SINGLE VIEW CHEST CLINICAL HISTORY: Neurological deficit. Stroke like symptoms. FINDINGS: An AP, portable, upright chest radiograph is compared to study dated 12/30/2022. Correlation is made with chest CT dated 06/15/2013. A right paratr acheal density is unchanged and corresponds to a thyroid goiter. The heart is enlarged noting atherosclerotic calcification of the thoracic aorta. There is prominence of the pulmonary vasculature. Enlargement of the central pulmonary vessels suggest pulmonary artery hypertension. Emphysema and chronic interstitial thickening is similar to previous. A bullae in the left midlung is unchanged. Airspace opacities are seen at both lung bases. No large pleural effusion or pneumothorax is seen. The skeletal structures are osteopenic. The bony thorax is grossly intact. Degenerative change is noted throughout the thoracic spine. IMPRESSION: 1. Cardiomegaly and emphysema with prominence of the pulmonary vasculature. Correlate clinically for evidence of fluid overload/congestive change. 2. Dependent airspace opacities could represent scarring/atelectasis. An infectious/inflammatory pneumonitis is not excluded and clinical correlation will be required. ACT 112: Negative or not required by law. Electronically signed by: Yunier Ledesma M.D. 01/23/2023 3:[address] 01/23/23 15:11 CT angio neck with con, CT head/brain wo con, CT angio head w con CLINICAL HISTORY: neuro deficit, acute stroke suspected TECHNIQUE: Contiguous axial CT images of the head were acquired from the base of the skull to the vertex without intravenous contrast administration. CT angiography of the head and neck was performed following intravenous administration of iodinated contrast. Coronal and sagittal MIPS were obtained from the axial data set and were submitted for review. Automated dose lowering techniques and/or adjustment according to patient size were utilized for this examination. All measurements were calculated based on NASCET criteria. CT DOSE: 1296.86 mGy.cm Comparison: None available at the time of this dictation. FINDINGS: CT head: Areas of decreased attenuation are present in the periventricular and subcortical white matter bilaterally consistent with small vessel ischemic disease. Generalized cerebral atrophy with commensurate enlargement of the ventricles, sulci, and cisterns is also present. There is no acute intracranial hemorrhage or evidence of acute territorial infarction. No shift of the midline structures, mass effect, or extra-axial abnormalities are shown. Atherosclerotic calcifications are present in the intracranial segments of the internal carotid arteries. Biapical emphysema is seen. Multiple thyroid nodules are seen. CTA Neck: A 3 vessel aortic arch is shown. There is no significant atheroscl erotic plaque in the aortic arch or the origins of the innominate, left common carotid, and left subclavian arteries. There is mild calcified atherosclerotic plaque at the bifurcation of the bilateral common carotid arteries without hemodynamically significant flow stenosis. There is no dissection present. The left vertebral artery is dominant. CTA Head: The anterior and posterior cerebral circulations are patent. Atherosclerotic disease is noted. IMPRESSION: 1. No acute intracranial hemorrhage, evidence of acute territorial infarction, or other acute intracranial disease process. 2. No occlusion, hemodynamically significant stenosis, or dissection in the major cervical arteries. 3. No occlusion, hemodynamically significant stenosis, aneurysm, dissection, or arteriovenous malformation in the major intracranial arteries. Assessment of stenosis of the internal carotid arteries is based on NASCET criteria. ACT 112: Negative or not required by law. Electronically signed by: Vinod Wyman M.D. 01/23/2023 3:39 PM Head CTA 01/23/23 15:11 CT angio neck with con, CT head/brain wo con, CT angio head w con CLINICAL HISTORY: neuro deficit, acute stroke suspected TECHNIQUE: Contiguous axial CT images of the head were acquired from the base of the skull to the vertex without intravenous contrast administration. CT angiography of the head and neck was performed following intravenous administration of iodinated contrast. Coronal and sagittal MIPS were obtained from the axial data set and were submitted for review. Automated dose lowering techniques and/or adjustment according to patient size were utilized for this examination. All measurements were calculated based on NASCET criteria. CT DOSE: 1296.86 mGy.cm Comparison: None available at the time of this dictation. FINDINGS: CT head: Areas of decreased attenuation are present in the periventricular and subcortical white matter bilaterally consistent with small vessel ischemic disease. Generalized cerebral atrophy with commensurate enlargement of the ventricles, sulci, and cisterns is also present. There is no acute intracranial hemorrhage or evidence of acute territorial infarction. No shift of the midline structures, mass effect, or extra-axial abnormalities are shown. Atherosclerotic calcifications are present in the intracranial segments of the internal carotid arteries. Biapical emphysema is seen. Multiple thyroid nodules are seen. CTA Neck: A 3 vessel aortic arch is shown. There is no significant atherosclerotic plaque in the aortic arch or the origins of the innominate, left common carotid, and left subclavian arteries. There is mild calcified atherosclerotic plaque at the bifurcation of the bilateral common carotid arteries without hemodynamically significant flow stenosis. There is no dissection present. The left vertebral artery is dominant. CTA Head: The anterior and posterior cerebral circulations are patent. Atherosclerotic disease is noted. IMPRESSION: 1. No acute intracranial hemorrhage, evidence of acute territorial infarction, or other acute intracranial disease process. 2. No occlusion, hemodynamically significant stenosis, or dissection in the major cervical arteries. 3. No occlusion, hemodynamically significant stenosis, aneurysm, dissection, or arteriovenous malformation in the major intracranial arteries. Assessment of stenosis of the internal carotid arteries is based on NASCET criteria. ACT 112: Negative or not required by law. Electronically signed by: Vinod Wyman M.D. 01/23/2023 3:39 PM Neck CTA 01/23/23 15:11 CT angio neck with con, CT head/brain wo con, CT angio head w con CLINICAL HISTORY: neuro deficit, acute stroke suspected TECHNIQUE: Contiguous axial CT images of the head were acquired from the base of the skull to the vertex without intravenous contrast administration. CT angiography of the head and neck was performed following intravenous administration of iodinated contrast. Coronal and sagittal MIPS were obtained from the axial data set and were submitted for review. Automated dose lowering techniques and/or adjustment according to patient size were utilized for this examination. All measurements were calculated based on NASCET criteria. CT DOSE: 1296.86 mGy.cm Comparison: None available at the time of this dictation. FINDINGS: CT head: Areas of decreased attenuation are present in the periventricular and subcortical white matter bilaterally consistent with small vessel ischemic disease. Generalized cerebral atrophy with commensurate enlargement of the ventricles, sulci, and cisterns is also present. There is no acute intracranial hemorrhage or evidence of acute territorial infarction. No shift of the midline structures, mass effect, or extra-axial abnormalities are shown. Atherosclerotic calcifications are present in the intracranial segments of the internal carotid arteries. Biapical emphysema is seen. Multiple thyroid nodules are seen. CTA Neck: A 3 vessel aortic arch is shown. There is no significant atherosclerotic plaque in the aortic arch or the origins of the innominate, left common carotid, and left subclavian arteries. There is mild calcified atherosclerotic plaque at the bifurcation of the bilateral common carotid arteries without hemodynamically significant flow stenosis. There is no dissection present. The left vertebral artery is dominant. CTA Head: The anterior and posterior cerebral circulations are patent. Atherosclerotic disease is noted. IMPRESSION: 1. No acute intracranial hemorrhage, evidence of acute territorial infarction, or other acute intracranial disease process. 2. No occlusion, hemodynamically significant stenosis, or dissection in the major cervical arteries. 3. No occlusion, hemodynamically significant stenosis, aneurysm, dissection, or arteriovenous malformation in the major intracranial arteries. Assessment of stenosis of the internal carotid arteries is based on NASCET criteria. ACT 112: Negative or not required by law. Electronically signed by: Vinod Wyman M.D. 01/23/2023 3:39 PM Brain MRI 01/23/23 16:08 MRI OF THE BRAIN WITHOUT IV CONTRAST CLINICAL HISTORY: Strokelike symptoms. COMPARISON STUDY: CT and CT angiogram of the brain dated 01/23/2023. TECHNIQUE: Fast scan MRI of the brain was performed to assess for acute stroke. This included axial diffusion-weighted images, axial ADC map, an axial gradient sequence, and a coronal FLAIR sequence. IV contrast was not administered for this examination. Note that this is not considered a full diagnostic MRI examination of the brain. FINDINGS: Brain parenchyma: There is age-related involutional change noting moderate to advanced subcortical and periventricular microangiopathic change. There is no evidence of hemorrhage or mass effect. There is no restricted diffusion typical for acute ischemia. Phillips-white matter differentiation appears preserved. Minimal dural thickening versus artifact is suggested overlying the left frontal convexity. This could not be corroborated on the CT images and is of doubtful significance. There there is no evidence of extra-axial fluid collection. There is linear calcification along the wall of the right lateral ventricle. Ventricles, sulci, and cisterns: Prominent secondary to involutional change. Sinuses and mastoids: Clear. Calvarium: No calvarial lesion is identified. IMPRESSION: There is no evidence of hemorrhage, mass effect, or acute ischemia. ACT 112: Negative or not required by law. Electronically signed by: Yunier Ledesma M.D. 01/23/2023 5:19 PM Code Status & VTE Plan Code Status Full code in the event of cardiac or respiratory arrest VTE Prophylaxis Plan VTE Prophylaxis will be ordered: Yes Supervising Physician Co-Signing Physician Notes Pt seen and examined by me, care coordinated w/ E. MARCY Velasquez, pls refer to her note above for further detail. Pt is a 77 yo M that presents w/altered mental status. Last well-known 1:05 PM 01/23/2023. This morning pt was seen by his PCP in the office and mental status was at baseline per pt's . Then later patient was having trouble speaking and would not smile or follow any commands. Telestroke was called and recommended to start Keppra. CT head, CTA head and neck, mri - negative, no TNK administration was advised at that time. Currently pt is sitting up in bed in [facility]. He is awake and pleasant but does not answer appropriately. he is moving extremities. Pt's is present at the bedside, she feels he is better than when they first came to the hospital. She is concerned as she reports pt having on and off fevers. Last evening she says his temp was 99F. Blood cultures were ordered, UA, CXR, sputum cultx. Will repeat head CT in AM and will further consult w/ neurology. No leukocytosis WBC 8.38, no electrolyte disturbance. Creatinine 1.34 baseline creatinine per outpatient records 1.2-1.4 Recent ER visit on 12/30/2022 status post fall when he was leaving his home to take his for an outpatient follow-up appointment in [place]. He did report at that time some increased ANDERSEN and fatigue. He recently had an abnormal chest CT with lymphadenopathy and was scheduled to have a bronchoscopy but canceled due to the drive. Additional past medical history includes rheumatoid arthritis (on Humira Q 8 weeks), spinal stenosis, HTN, pernicious anemia, COPD emphysema. Patient saw Pulmonary medicine on 11/16 with the following recommendations: Bronchoscopy under general anesthesia, Blood for connective tissue screening, Spirogram, Bronchodilator nebulization and flutter device. Patient canceled bronch as he did not want to drive to [facility] for it and wanted to possibly switch to [facility] for further evaluation. Will further discuss w/ [facility] pulmonary med. Will start empiric abx w/ [email or web address]. MD Asiya
[2023-01-23 21:13] LABS: Appearance Urine Clear (Clear); Bacteria Urine Automated Negative (Negative); Bilirubin Urine Negative (Negative); Blood Urine 3+ (Negative); Color Urine Orange; Epithelial Cell Urine Auto >30 /lpf (0-5); Glucose Urine UA Negative (Negative); Ketones Urine Negative (Negative); Leukocyte Esterase Urine Negative (Negative); Nitrite Urine Negative (Negative); Protein Urine Trace (Negative); RBC Urine Automated >30 /hpf (0-4); Specific Gravity Urine 1.041 (1.000-1.030); Urobilinogen Urine Negative (Negative); pH Urine 6.5 (4.5-7.5)
[2023-01-23 21:42] LABS: Renal Epithelial Cells Urine 0-5 /lpf (0-5)
[2023-01-23] MEDS: cefTRIAXone SODIUM 2,000 MG in DEXTROSE 5% 50 ML IV SCH (21:45)
[2023-01-23] MEDS: SODIUM CHLORIDE 0.9% 1,000 ML IV SCH (21:45)
[2023-01-23] MEDS: DOXYCYCLINE HYCLATE 100 MG in DEXTROSE 5% 100 ML IV SCH (21:51)
[2023-01-24 06:36] LABS: Hematocrit (blood only) 35.7 % (42.0-52.0); Hemoglobin 11.9 g/dl (14.0-18.0); Mean Corpuscular Hemoglobin 29.8 pg (25.0-34.0); Mean Corpuscular Hgb Conc 33.3 g/dL (32.0-36.0); Mean Corpuscular Volume 89.3 fL (80.0-100.0); Mean Platelet Volume 9.6 fL (9.4-12.4); Platelet Count 347 K/uL (130-400); RDW Standard Deviation 45.7 fL (36.4-46.3); White Blood Count 8.62 K/ul (4.8-10.8)
[2023-01-24 07:01] LABS: Albumin Globulin Ratio 0.7 (0.9-2); Albumin Level 2.7 gm/dl (3.4-5.0); BUN Creatinine Ratio 17.6 (10-20); Bilirubin,Total 0.4 mg/dl (0.2-1.0); Calcium 8.8 mg/dl (8.6-10.3); Est GFR (African American) 80.6 ml/min; Est GFR (Non-African American) 69.6 ml/min; Globulin 4.1 gm/dl (2.5-4.0); Magnesium 1.6 mg/dl (1.7-2.4); Phosphorus 2.7 mg/dl (2.5-4.9); Potassium 4.1 mmol/L (3.5-5.1); Total Protein 6.8 gm/dl (6.0-8.3)
[2023-01-24] MEDS ORDERED: MAGNESIUM SULFATE / D5W 1 GM/100 ML BAG IV ONE (08:15)
[2023-01-24] MEDS: DOXYCYCLINE HYCLATE 100 MG in DEXTROSE 5% 100 ML IV SCH ×2 (08:22→20:37)
[2023-01-24] MEDS: levETIRAcetam 500 MG in 0.9 % SODIUM CHLORIDE 100 ML IV SCH ×2 (08:47→20:34)
--- NOTE | 2023-01-24 08:47 | Neurology Consultation ---
Date of Consultation January 24, 2023 Assessment & Plan (1) Mixed aphasia: (2) Abnormal CT of brain: Plan Patient has an acute onset of a mixed aphasia (mostly expressive but some receptive). There is no history that the patient has an underlying dementia and he is quite awake and alert. There is no evidence for delirium. Imaging study shows no stroke but there is a concern about a left frontal abnormality consistent with cerebritis or inflammation. He has no other focal findings on neurologic examination and he does not have meningeal signs. 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 Patient was given levetiracetam. I am not convinced the patient had any seizures but if he does have an inflammation that would put him at risk for seizures Recommendations: 1. MRI of the brain with without contrast. 2. LP to evaluate for inflammation or infection. 3. Laboratory studies to include ESR, CRP, TSH, B12, Lyme antibody titers. 4. Keep levetiracetam 500 mg twice daily, for now. 5. Additional recommendations will be made after the above test and depending on his clinical course. Overall, I spent a total of 90 minutes with this case including review of records, review of CT and MRI films, direct evaluation the patient at bedside, report generation, and discussing the case with the patient and RN at bedside , Dr. Ferreira radiology, and Dr. Streeter at bedside, including differential diagnosis and treatment options. History of Present Illness Reason for Consultation: Patient is a 77-year-old, who was asked to see at the request of Dr. Braden, for neurologic consultation regarding acute mental status changes. Requesting Physician: Dr. Braden Attending Physician: Yanira Streeter MD History of Present Illness Patient has a history of rheumatoid arthritis and hypertension. Earlier this month he fell and ended up fracturing multiple bones and dislocating finger all in his left hand. He came to the emergency room on December 30 for a nonspecific illness/fever they noted the fractures in his hand when he was not concerned about. Then saw Dr. Bingham January 02 who treated the fractures conservatively as the patient did not want much done as he needed to care for his . Juju arently his mental status and speech and language were unremarkable as no one noted anything abnormal. Sometime on January 23 in the early afternoon he stops speaking or following commands. He arrived at the emergency room at 2:54 p.m. with a blood pressure of 142/82, pulse 82 and regular, respiratory rate 14, O2 saturation 95%. His neurologic examination was nonfocal but he had trouble speaking and communicating. Chest x-ray showed cardiomegaly and COPD. CT scan of the head was unremarkable. CT angiography of the head and neck were unremarkable. MRI of the brain (short protocol) showed no acute stroke but there was moderate generalized atrophy and small-vessel ischemic disease. I reviewed these films. The patient was loaded with Keppra but I am not certain any seizure activity was noted. The patient had no fever in the emergency room and CBC was unremarkable. Chem profile was unremarkable This morning the patient was very confused according to the nursing staff and not able to follow commands or express himself well. Repeat CT scan of the head showed some left frontal sulcal effacement that was not entirely clear on the previous CT but in retrospect looking at the MRI there may have been some changes on diffusion imaging suggesting some inflammation in the left frontal head region. I reviewed the CT scan films and MRI with Dr. Ferreira and I am concerned there is a left frontal cerebritis or inflammation present. The patient is very difficult to communicate with but he does not seem to have a headache, lightheadedness, vision problems, or any new weakness or numbness. Laboratory studies today show a mild anemia and an unremarkable Chem profile. He has been afebrile in his white count is only 8.6. Allergies Allergy/AdvReac Type Severity Reaction Status Date / Time No Known Allergies Allergy Unverified 01/23/23 15:22 Home Medications Medication Instructions Recorded Confirmed Type adalimumab 40 mg/0.8 mL 40 mg subcut Q14D 01/23/23 01/23/23 History subcutaneous pen kit (Humira Pen) albuterol sulfate 2.5 mg/3 mL 2.5 mg continuous nebulization Q4 01/23/23 01/23/23 History (0.083 %) solution for nebulization PRN Wheezing amlodipine 2.5 mg-benazepril 10 mg 1 cap PO QAM 01/23/23 01/23/23 History capsule cyanocobalamin (vitamin B-12) 1,000 mcg IM MONTHLY 01/23/23 01/23/23 History 1,000 mcg/mL injection solution prednisone 5 mg tablet 5 mg PO QAM PRN RA flares 01/23/23 01/23/23 History Patient History Medical History Fever of unknown origin HTN (hypertension) Pernicious anemia Rheumatoid arthritis Spinal stenosis Surgical History No pertinent past surgical history Social History Smoking Status: Former smoker Tobacco Type: Cigarettes Second Hand Exposure: No; Do You Dip or Chew Tobacco: No; Tobacco Cessation Education Requested by Patient: No Hx Alcohol Use: No Hx Substance Use: No Preferred Language: Sami Communication Ability: Impaired 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 The patient is awake, alert, and attentive. He makes eye contact and has good expressions he tries to understand and answer questions. It is clear he is attempting to answer the questions but only okay or I see comes out. At t imes, a specific question might get a no answer. He really does not speak any other words. He can follow 1 step commands although it can be difficult. His mood seems normal and his affect seems appropriate. I can not assess his memory because of the aphasia Pupils are 4 mm bilaterally and reactive to light. Extraocular eye muscles are intact without nystagmus. Visual acuity and visual abarca seem normal grossly to confrontation. There are no deficits to sensation in the face in all 3 distributions of the fifth cranial nerve bilaterally. Corneal reflexes are positive bilaterally. Facial strength and symmetry was normal bilaterally. Hearing seems normal bilaterally. Palate moves well without asymmetry. There is normal sternocleidomastoid and trapezius (shoulder shrug) strength bilaterally. Tongue is midline with good strength bilaterally. Neck has a full range of motion without discomfort. Gait was not tested but stance sitting seem fine With outstretched arms there is no drift. There are no resting, postural, or action tremors. There is no ataxia with finger to nose testing. There is good facility in the hands. No other abnormal involuntary movements are noted. Motor strength is 5/5 diffusely in the arms bilaterally including deltoids, biceps, triceps, brachioradialis, wrist flexors and extensors, back tender pulp drier, and intrinsic hand muscles. Motor strength is 5/5 diffusely in the legs bilaterally including hip flexors, quadriceps, hamstrings, gastrocnemius, tibialis anterior, tibialis posterior, and Peroneii muscles. Toe extensors are normal and there is good bulk in the extensor digitorum brevis muscles bilaterally. The limbs have good tone without rigidity or spasticity. There is no atrophy noted in the muscles. Muscle bulk is normal, there is no tenderness to palpa tion, no myotonia to percussion, and no fasciculations seen. Sensory examination is intact to touch and pin throughout all 4 limbs diffusely. Reflexes are 2/4 in the biceps, triceps, brachioradialis, quadriceps, and Achilles tendons bilaterally. There is no clonus bilaterally. Toes are downgoing with plantar stimulation bilaterally. Peripheral pulses are present and of normal quality distally in all 4 limbs. There is no peripheral edema noted in the limbs. Results & Data Vital Signs (Past 12 Hours) Vital Signs Temp Pulse Pulse Resp BP Pulse Ox O2 Del Method 01/24/23 07:52 36.9 C 84 20 148/88 H 93 Room Air 01/24/23 03:00 36.5 C 69 18 142/78 H 97 Room Air 01/23/23 23:00 75 01/23/23 23:00 36.5 C 75 19 145/85 H 98 Room Air PG Care Time/CCT Total # of Minutes Spent Total Time Spent with Patient: Total time spent is greater than 50% in coordination of care (as documented) at patient's floor/unit and/or counseling patient: Coding Level of Care Code 00018 INT INP/OBS CARE 3/75MIN Diagnoses Mixed aphasia R47.[address] of brain R90.89 Time Spent (min) 90
--- NOTE | 2023-01-24 08:57 | CT Scan Report ---
CT OF THE HEAD WITHOUT CONTRAST CLINICAL HISTORY: Aphasia. COMPARISON STUDY: Head CT, CTA of the head and MRI of the brain January 23, 2023. CT DOSE: 625.80 mGy.cm TECHNIQUE: Helical axial images of the head were obtained without IV contrast. Automated exposure con trol was utilized for the study. A dose lowering technique was utilized adhering to the principles o f ALARA. FINDINGS: No acute intracranial hemorrhage is present. Ventricular system is unremarkable. Basal cist erns are patent. There are no findings to suggest acute dural sinus thrombosis or acute territorial i nfarct. There is equivocal sulcal effacement within the anterior left frontal lobe shown best on axia l image 23 of 32. This was not clearly evident on prior CT or MRI. This may be artifactual. There are no significant calvarial abnormalities. IMPRESSION: 1. No acute intracranial hemorrhage. 2. Apparent sulcal effacement within the anterior left frontal lobe, not clearly evident on prior CT or MRI. This may be artifactual however a follow-up MRI of the brain with and without contrast is rec ommended for further evaluation. ACT 112: Negative or not required by law. Electronically signed by: Matthew Ferreira M.D. 01/24/2023 8:55 AM
--- NOTE | 2023-01-24 10:41 | Hospitalist Progress Note ---
Date of Service January 24, 2023 Assessment & Plan (1) Mixed aphasia: (2) HTN (hypertension): (3) Altered mental status: (4) Rheumatoid arthritis: (5) COPD (chronic obstructive pulmonary disease): (6) Fever of unknown origin: Plan Mixed Aphasia: Altered mental status: 77-year-old male with history of rheumatoid arthritis (on Humira Q 8 weeks), spinal stenosis, HTN, pernicious anemia, COPD emphysema that presented to the ED after being noted to have altered mental status changes. Last well-known 1:05 PM 01/23/2023. Initially patient was not speaking and would not smile or follow any commands. Telestroke was paged at 3:25 PM and keppra loading with Neurological imaging were recommended. Chest x-ray negative for acute cardiopulmonary disease Head CT, head/ neck CTA were negative for ischemia, midline shift, acute subdural or intracranial hemorrhage. Brain MRI w/o co on 01/23/23 was negative for acute ischemia, masses or tumors or hemorrhage. Repeat CT head this AM noted sulcal effacement within anterior frontal lobe. Differentials are broad at this time Possible inflammatory process going on in the brain Discussed with Neurologist Get MRI brain w/wo co Get LP and CSF studies TSH, Lyme panel, CRP, ESR Continue Keppra Per Admitting Dr, had reported intermittent fevers at home. No fever since admission. No leukocytosis Follow up infectious workup Rheumatoid arthritis: Chronic stable On Humira q. 8 weeks; hold while inpatient Takes prednisone 5 mg daily; continue Consider infected joint; correlate on exam COPD emphysema and bronchiectasis: Per Admitting Dr, patient had cough with thick yellow sputum CT scan on 11/14: CT SCAN 11/14/22: 1. Extensive predominantly ground-glass nodularity with tree-in-bud morphology most pronounced lower lungs. Likely inflammatory/infectious. 2. Some additional more solid small lung nodularity which could also be inflammatory/infectious however close follow-up CT in 3 months suggested to assure stability/resolution. 3. Advanced emphysema. 4. Bilateral slightly bulky axillary lymphadenopathy, nonspecific. Correlate clinically. 5. See above for other details. 6. Heterogeneous enlarged right lobe of thyroid with suspected multiple internal nodules. Consider future thyroid ultrasound. Pt saw Pulmonary on 11/16 and recommended Bronchoscopy. Patient canceled bronch as he did not want to [facility] and wanted to possibly switch to [facility] for further evaluation. CXR on this admission noted dependent airspace opacities, cardiomegaly and emphysema Continue ceftriaxone and doxycycline started on admission Will follow up Pulm consult placed by Admitting provider CKD: On admission, Creatinine 1.34; baseline per [facility] records 1.2-1.4 Cr is 1.02 today Hypertension: Continue amlodipine/benazepril Dyslipidemia: Does not take any medications for this Lipid panel on 11/12/22: TG 115, HDL 41, LDL 114 Disposition: PCP: Dr. Joseph CODE STATUS: Full code VTE prophylaxis:TEDS + SCDS for now Called and updated her I spent a total of 55 minutes coordinating, documenting and providing care for this patient excluding time spent in performance of separately billed services Admission and Anticipated Discharge Date Admission Date: January 23, 2023 Subjective Patient seen and examined ROS is difficult to obtain due to aphasia Patient has expressive aphasia and some receptive aphasia as well He is awake and alert, occasionally follows commands but answers 'Ok' to every question. Physical Exam Constitutional: + well hydrated; no acute distress Eyes: PERRL, conjunctivae normal, anicteric sclerae ENMT: external ear and nose normal, oropharynx normal Respiratory: normal respiratory effort, lungs clear to auscultation Cardiovascular: Rate/Rhythm: regular rate and regular rhythm S1 S2 Gastrointestinal (Abdomen): normal bowel sounds, soft, nontender, no hep atosplenomegaly Musculoskeletal: No pedal edema Neurologic: PERRL, EOMI, accommodation nl, no face palsy, no dysarthria Power is normal across UE and LE +Aphasia No pronator drift Results & Data Results & Data Vital Signs (Past 12 Hours) Vital Signs Temp Pulse Pulse Resp BP Pulse Ox O2 Del Method 01/24/23 09:57 77 01/24/23 09:14 Room Air 01/24/23 07:52 36.9 C 84 20 148/88 H 93 Room Air 01/24/23 03:00 36.5 C 69 18 142/78 H 97 Room Air 01/23/23 23:00 75 01/23/23 23:00 36.5 C 75 19 145/85 H 98 Room Air Laboratory Results Abnormal lab results 01/23/23 01/23/23 01/23/23 Range/Units 15:13 15:14 15:14 RBC (4.70-6.10) M/uL Hgb 13.9 L (14.0-18.0) g/dl Hct (42.0-52.0) % RDW Std Deviation 47.8 H (36.4-46.3) fL Lymph # (Auto) 0.91 L (1.20-3.40) K/uL Knott # (Auto) 0.70 H (0.11-0.59) K/uL ESR (0-20) mm/hr PT 12.1 H (9.0-12.0) Seconds Sodium (136-145) mmol/L BUN (6-23) mg/dl Glucose (70-99(Fasting)) mg/dl POC Glucose 144 H (70-99) mg/dl Magnesium (1.7-2.4) mg/dl AST (13-39) U/L ALT (7-52) U/L C-Reactive Protein (0-0.5) mg/dl Albumin (3.4-5.0) gm/dl Globulin (2.5-4.0) gm/dl Albumin/Globulin Ratio (0.9-2) Ur Specific Benton (1.000-1.030) Urine Protein (Negative) Urine Blood (Negative) Urine RBC (Auto) (0-4) /hpf U Epithel Cells (Auto) (0-5) /lpf 01/23/23 01/23/23 01/24/23 Range/Units 15:14 Unknown 05:52 RBC 4.00 L (4.70-6.10) M/uL Hgb 11.9 L (14.0-18.0) g/dl Hct 35.7 L (42.0-52.0) % RDW Std Deviation (36.4-46.3) fL Lymph # (Auto) (1.20-3.40) K/uL Knott # (Auto) (0.11-0.59) K/uL ESR (0-20) mm/hr PT (9.0-12.0) Seconds Sodium (136-145) mmol/L BUN 24 H (6-23) mg/dl Glucose 146 H (70-99(Fasting)) mg/dl POC Glucose (70-99) mg/dl Magnesium (1.7-2.4) mg/dl AST 11 L (13-39) U/L ALT (7-52) U/L C-Reactive Protein (0-0.5) mg/dl Albumin 3.2 L (3.4-5.0) gm/dl Globulin 4.8 H (2.5-4.0) gm/dl Albumin/Globulin Ratio 0.7 L (0.9-2) Ur Specific Benton 1.041 H (1.000-1.030) Urine Protein Trace H (Negative) Urine Blood 3+ H (Negative) Urine RBC (Auto) >30 H (0-4) /hpf U Epithel Cells (Auto) >30 H (0-5) /lpf 01/24/23 01/24/23 01/24/23 Range/Units 05:52 10:14 10:14 RBC (4.70-6.10) M/uL Hgb (14.0-18.0) g/dl Hct (42.0-52.0) % RDW Std Deviation (36.4-46.3) fL Lymph # (Auto) (1.20-3.40) K/uL Knott # (Auto) (0.11-0.59) K/uL ESR 126 H (0-20) mm/hr PT (9.0-12.0) Seconds Sodium 134 L (136-145) mmol/L BUN (6-23) mg/dl Glucose 105 H (70-99(Fasting)) mg/dl POC Glucose (70-99) mg/dl Magnesium 1.6 L (1.7-2.4) mg/dl AST 9 L (13-39) U/L ALT 6 L (7-52) U/L C-Reactive Protein 17.56 H (0-0.5) mg/dl Albumin 2.7 L (3.4-5.0) gm/dl Globulin 4.1 H (2.5-4.0) gm/dl Albumin/Globulin Ratio 0.7 L (0.9-2) Ur Specific Benton (1.000-1.030) Urine Protein (Negative) Urine Blood (Negative) Urine RBC (Auto) (0-4) /hpf U Epithel Cells (Auto) (0-5) /lpf
--- NOTE | 2023-01-24 10:58 | Pulmonary Consultation ---
Date of Consultation January 24, 2023 History of Present Illness Attending Physician: Yanira Streeter MD Allergies Allergy/AdvReac Type Severity Reaction Status Date / Time No Known Allergies Allergy Unverified 01/23/23 15:22 Home Medications Medication Instructions Recorded Confirmed Type adalimumab 40 mg/0.8 mL 40 mg subcut Q14D 01/23/23 01/23/23 History subcutaneous pen kit (Humira Pen) albuterol sulfate 2.5 mg/3 mL 2.5 mg continuous nebulization Q4 01/23/23 01/23/23 History (0.083 %) solution for nebulization PRN Wheezing amlodipine 2.5 mg-benazepril 10 mg 1 cap PO QAM 01/23/23 01/23/23 History capsule cyanocobalamin (vitamin B-12) 1,000 mcg IM MONTHLY 01/23/23 01/23/23 History 1,000 mcg/mL injection solution prednisone 5 mg tablet 5 mg PO QAM PRN RA flares 01/23/23 01/23/23 History Patient History Medical History Fever of unknown origin HTN (hypertension) Pernicious anemia Rheumatoid arthritis Spinal stenosis Surgical History No pertinent past surgical history Social History Smoking Status: Former smoker Tobacco Type: Cigarettes Second Hand Exposure: No; Do You Dip or Chew Tobacco: No; Tobacco Cessation Education Requested by Patient: No Hx Alcohol Use: No Hx Substance Use: No Preferred Language: Anguillan Communication Ability: Impaired 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 Beliefs That Will Affect Care: None Current Living Situation: Spouse Other Information That Helps Us Care for You: No Feels Safe at Home: Yes Safety Concerns: Feels Safe At This Time Assistive Devices: Cane, Denture - Upper, Denture - Lower, Glasses and Wheelchair Results & Data Results & Data Vital Signs (Past 12 Hours) Vital Signs Temp Pulse Pulse Resp BP Pulse Ox O2 Del Method 01/24/23 09:57 77 01/24/23 09:14 Room Air 01/24/23 07:52 36.9 C 84 20 148/88 H 93 Room Air 01/24/23 03:00 36.5 C 69 18 142/78 H 97 Room Air 01/23/23 23:00 75 01/23/23 23:00 36.5 C 75 19 145/85 H 98 Room Air PG Care Time/CCT Total # of Minutes Spent Total Time Spent with Patient: Total time spent is greater than 50% in coordination of care (as documented) at patient's floor/unit and/or counseling patient: Coding Diagnoses
[2023-01-24 11:14] LABS: C Reactive Protein 17.56 mg/dl (0-0.5)
[2023-01-24 11:38] LABS: Lyme Ab IgG w/WB Rflx Negative (Negative); Lyme Ab IgM w/WB Rflx Negative (Negative)
--- NOTE | 2023-01-24 13:01 | Magnetic Resonance Report ---
MRI OF THE BRAIN WITHOUT IV CONTRAST CLINICAL HISTORY: Change in mental status. Aphasia. COMPARISON STUDY: MRI of the brain dated 12/27/2022. CT of the brain dated 01/24/2023. TECHNIQUE: MRI of the brain was performed utilizing various T1 and T2-weighted sequences in the axial and sagittal planes. IV contrast was not administered for this examination. The examination is sever jules degraded by motion artifact. This degrades diagnostic utility. Coronal FLAIR imaging and postcont rast imaging could not be performed FINDINGS: Brain parenchyma: There is age-related involutional change noting moderate to advanced subcortical an d periventricular microangiopathic and hepatic disease. There is no evidence of hemorrhage or mass ef fect. There are small foci of restricted diffusion seen along the high left frontal convexity on axia l image #24, which is new from yesterday. This measures up to 1.1 cm in aggregate dimension, and it i s unclear if this involves the cortex of the extra-axial space. There is apparent extra-axial soft ti ssue thickening in this region suggested on sagittal image #14. No additional foci of restricted diff usion are identified. The cerebellar tonsils are normal in configuration. Ventricles, sulci, and cisterns: Prominent secondary to involutional change. Pituitary and sella: Unremarkable. Intracranial vasculature: Normal flow voids are maintained at the skull base. Orbits: The bony orbits are grossly intact. Orbital contents are normal in appearance. Sinuses and mastoids: Grossly clear. Calvarium: Unremarkable. Cervical cord: Partially visualized cervical spinal cord is normal in morphology and signal intensity . IMPRESSION: 1. Incomplete and severely motion compromises examination. This degrades diagnostic utility. 2. There are small foci of restricted diffusion identified on the high left anterior frontal convexit y. This is new from yesterday, and it is unclear if this involves the cortex or the extra-axial space . There is also apparent extra-axial soft tissue thickening suggested at this site. Differential cons iderations include a focus of acute to subacute ischemia or possibly infection. A lumbar puncture is recommended for further evaluation. 3. No additional foci of restricted diffusion are identified. There is no evidence of hemorrhage or m ass effect. ACT 112: Negative or not required by law. Electronically signed by: Yunier Ledesma M.D. 01/24/2023 12:59 PM
[2023-01-24] MEDS: SODIUM CHLORIDE 0.9% 1,000 ML IV SCH (13:34)
--- NOTE | 2023-01-24 15:40 | Pulmonary Consultation ---
Date of Consultation January 24, 2023 Assessment & Plan (1) Mixed aphasia: (2) Rheumatoid arthritis: (3) Abnormal CT of brain: (4) Bronchiectasis: (5) COPD (chronic obstructive pulmonary disease) with emphysema: Plan ASSESSMENT/PLAN: 1. Aphasia and STroke-Like Symptoms -undergoing stroke workup -Left anterior frontal convexity on brain MRI which may represent acute to subacute ischemia or possible infection. 2. Bronchiectasis Hx? -previously undergoing workup for COPD/Emphysema -recommend HRCT of Chest -continue further followup and workup after stoke evaluation -will require bronchoscopy -Patient can have his pulmonary evaluation and work-up done on an outpatient basis and followed up by [facility] pulmonary clinic 3. Tobacco Abuse Hx -quit 20-25yrs ago 4. Abnormal Chest CT Scan -Advanced Emphysema 5. Thyroid Nodules per Chest CT scan 6. Rheumatoid Arthritis History of Present Illness Reason for Consultation: Further work-up for COPD and emphysema vs bronchiectasis. Requesting Physician: Eliane Mcdaniel MD Attending Physician: Yanira Streeter MD History of Present Illness This 77-year-old gentleman who presented to [facility] ED due to altered mental status changes and is currently being worked up for possible stroke has been asked to be seen by the pulmonary service due to a recent work-up regarding his pulmonary status of distinguishing bronchiectasis versus COPD/emphysema. Due to patient's difficulty to communicate this history was taken from his , Charleen and the initial history and physical that was taken yesterday. Mr. Garcia was diagnosed with bronchiectasis many years ago according to his and has had increasing episodes usually nocturnally of coughing but no increase in regards to pulmonary secretions. She states that he has also had progressive weight loss over the past several years. He has not smoked since his 40s but did smoke for 20+ years. Most recently patient had seen a [facility] spa manager back in October who felt that he may have been misdiagnosed with bronchiectasis and recommended he undergo a bronchoscopy however patient canceled due to his spa manager being at [facility] and not wanting to drive there and considering [place] [facility]. Patient was provided with inhalers when he was initially diagnosed with bronchiectasis however he has not used them consistently and is currently not requiring any supplemental oxygen at this time. Allergies Allergy/AdvReac Type Severity Reaction Status Date / Time No Known Allergies Allergy Unverified 01/23/23 15:22 Home Medications Medication Instructions Recorded Confirmed Type adalimumab 40 mg/0.8 mL 40 mg subcut Q14D 01/23/23 01/23/23 History subcutaneous pen kit (Humira Pen) albuterol sulfate 2.5 mg/3 mL 2.5 mg continuous nebulization Q4 01/23/23 01/23/23 History (0.083 %) solution for nebulization PRN Wheezing amlodipine 2.5 mg-benazepril 10 mg 1 cap PO QAM 01/23/23 01/23/23 History capsule cyanocobalamin (vitamin B-12) 1,000 mcg IM MONTHLY 01/23/23 01/23/23 History 1,000 mcg/mL injection solution prednisone 5 mg tablet 5 mg PO QAM PRN RA flares 01/23/23 01/23/23 History Patient History Medical History Fever of unknown origin HTN (hypertension) Pernicious anemia Rheumatoid arthritis Spinal stenosis Surgical History No pertinent past surgical history Social History Smoking Status: Former smoker Tobacco Type: Cigarettes Second Hand Exposure: No; Do You Dip or Chew Tobacco: No; Tobacco Cessation Education Requested by Patient: No Hx Alcohol Use: No Hx Substance Use: No Preferred Language: Albanian Communication Ability: Impaired Pit Clerk Required: No Beliefs That Will Affect Care: None Current Living Situation: Spouse Other Information That Helps Us Care for You: No Feels Safe at Home: Yes Safety Concerns: Feels Safe At This Time Assistive Devices: Cane, Denture - Upper, Denture - Lower, Glasses and Wheelchair Review of Systems Review of Systems: Unobtainable due to cognitive status Physical Exam Constitutional: WD/WN, vitals as above Patient is unable to provide answers to questions due to his aphasic nature. Currently being evaluated for stroke. Eyes: PERRL, conjunctivae normal, anicteric sclerae ENMT: external ear and nose normal, oropharynx normal Neck: trachea midline, no thyromegaly Respiratory: normal respiratory effort, lungs clear to auscultation Cardiovascular: RRR, no murmur, no edema Gastrointestinal (Abdomen): normal bowel sounds, soft, nontender, no hepatosplenomegaly Musculoskeletal: no cyanosis or clubbing, extremities motor strength 5/5 Patient does have bony deformities to her knees feet and hands consistent with arthritis Skin: no rashes, warm and dry Neurologic: Patient is aphasic with dysarthric speech and echolalia. Can shrug his shoulders and move his upper extremities. Psychiatric: A+Ox3, euthymic affect Results & Data Results & Data Vital Signs (Past 12 Hours) Vital Signs Temp Pulse Pulse Resp BP Pulse Ox O2 Del Method 01/24/23 15:21 36.5 C 71 14 152/89 H 97 Room Air 01/24/23 11:33 36.6 C 70 18 136/78 96 Room Air 01/24/23 09:57 77 01/24/23 09:14 Room Air 01/24/23 07:52 36.9 C 84 20 148/88 H 93 Room Air Laboratory Results Laboratory Results WBC 8.62 K/ul (4.8-10.8) 01/24/23 05:52 RBC 4.00 M/uL (4.70-6.10) L 01/24/23 05:52 Hgb 11.9 g/dl (14.0-18.0) L 01/24/23 05:52 Hct 35.7 % (42.0-52.0) L 01/24/23 05:52 MCV 89.3 fL (80.0-100.0) 01/24/23 05:52 MCH 29.8 pg (25.0-34.0) 01/24/23 05:52 MCHC 33.3 g/dL (32.0-36.0) 01/24/23 05:52 RDW Std Deviation 45.7 fL (36.4-46.3) 01/24/23 05:52 RDW Coeff of [place] 14.0 % (11.5-14.5) 01/24/23 05:52 Plt Count 347 K/uL (130-400) 01/24/23 05:52 MPV 9.6 fL (9.4-12.4) 01/24/23 05:52 Immature Gran % (Auto) 0.8 % 01/23/23 15:14 Neut % (Auto) 77.1 % 01/23/23 15:14 Lymph % (Auto) 10.9 % 01/23/23 15:14 [place] % (Auto) 8.4 % 01/23/23 15:14 Eos % (Auto) 2.1 % 01/23/23 15:14 Baso % (Auto) 0.7 % 01/23/23 15:14 Neut # (Auto) 6.46 K/uL (1.40-6.50) 01/23/23 15:14 Lymph # (Auto) 0.91 K/uL (1.20-3.40) L 01/23/23 15:14 [place] # (Auto) 0.70 K/uL (0.11-0.59) H 01/23/23 15:14 Eos # (Auto) 0.18 K/uL (0.00-0.50) 01/23/23 15:14 Baso # (Auto) 0.06 K/uL (0.00-0.20) 01/23/23 15:14 Immature Gran # (Auto) 0.07 K/uL (0.01-0.20) 01/23/23 15:14 ESR 126 mm/hr (0-20) H 01/24/23 10:14 PT 12.1 Seconds (9.0-12.0) H 01/23/23 15:14 INR 1.1 (0.9-1.1) 01/23/23 15:14 APTT 29.3 Seconds (21.0-31.0) 01/23/23 15:14 PTT Ratio 1.0 01/23/23 15:14 Sodium 134 mmol/L (136-145) L 01/24/23 05:52 Potassium 4.1 mmol/L (3.5-5.1) 01/24/23 05:52 Chloride 102 mmol/L (98-107) 01/24/23 05:52 Carbon Dioxide 24 mmol/L (21-32) 01/24/23 05:52 Anion Gap 8 (3-11) 01/24/23 05:52 BUN 18 mg/dl (6-23) 01/24/23 05:52 Creatinine 1.02 mg/dl (0.6-1.4) D 01/24/23 05:52 Est Cr Clr Drug Dosing 53.0 ml/min 01/24/23 05:52 Est GFR ( Amer) 80.6 ml/min 01/24/23 05:52 Est GFR (Non-Af Amer) 69.6 ml/min 01/24/23 05:52 BUN/Creatinine Ratio 17.6 (10-20) 01/24/23 05:52 Glucose 105 mg/dl (70-99(Fasting)) H 01/24/23 10:14 POC Glucose 144 mg/dl (70-99) H 01/23/23 15:13 Uric Acid 6.3 mg/dl (2.6-7.2) 01/23/23 20:35 Calcium 8.8 mg/dl (8.6-10.3) 01/24/23 05:52 Phosphorus 2.7 mg/dl (2.5-4.9) 01/24/23 05:52 Magnesium 1.6 mg/dl (1.7-2.4) L 01/24/23 05:52 Total Bilirubin 0.4 mg/dl (0.2-1.0) 01/24/23 05:52 AST 9 U/L (13-39) L 01/24/23 05:52 ALT 6 U/L (7-52) L 01/24/23 05:52 Alkaline Phosphatase 50 U/L (34-104) 01/24/23 05:52 Troponin I High Sens 5.8 pg/ml (0-20) 01/23/23 15:14 C-Reactive Protein 17.56 mg/dl (0-0.5) H 01/24/23 10:14 Total Protein 6.8 gm/dl (6.0-8.3) 01/24/23 05:52 Albumin 2.7 gm/dl (3.4-5.0) L 01/24/23 05:52 Globulin 4.1 gm/dl (2.5-4.0) H 01/24/23 05:52 Albumin/Globulin Ratio 0.7 (0.9-2) L 01/24/23 05:52 Vitamin B12 780 pg/ml (180-914) 01/24/23 05:52 Procalcitonin 0.26 ng/ml (0-0.5) 01/23/23 15:14 TSH 1.318 uIu/ml (0.300-4.500) 01/24/23 10:14 Urine Color [place] 01/23/23 Unknown Urine Appearance Clear (Clear) 01/23/23 Unknown Urine pH 6.5 (4.5-7.5) 01/23/23 Unknown Ur Specific [place] 1.041 (1.000-1.030) H 01/23/23 Unknown Urine Protein Trace (Negative) H 01/23/23 Unknown Urine Glucose (UA) Negative (Negative) 01/23/23 Unknown Urine Ketones Negative (Negative) 01/23/23 Unknown Urine Blood 3+ (Negative) H 01/23/23 Unknown Urine Nitrite Negative (Negative) 01/23/23 Unknown Urine Bilirubin Negative (Negative) 01/23/23 Unknown Urine Urobilinogen Negative (Negative) 01/23/23 Unknown Ur Leukocyte Esterase Negative (Negative) 01/23/23 Unknown Urine WBC (Auto) 1-5 /hpf (0-5) 01/23/23 Unknown Urine RBC (Auto) >30 /hpf (0-4) H 01/23/23 Unknown U Hyaline Cast (Auto) 1-5 /lpf (0-5) 01/23/23 Unknown U Epithel Cells (Auto) >30 /lpf (0-5) H 01/23/23 Unknown Urine Bacteria (Auto) Negative (Negative) 01/23/23 Unknown Ur Renal Epithelial Cell 0-5 /lpf (0-5) 01/23/23 Unknown Lyme Disease IgG Ab Negative (Negative) 01/24/23 10:14 Lyme Disease IgM Ab Negative (Negative) 01/24/23 10:14 Impressions Chest X-Ray 01/23/23 15:11 SINGLE VIEW CHEST CLINICAL HISTORY: Neurological deficit. Stroke like symptoms. FINDINGS: An AP, portable, upright chest radiograph is compared to study dated 12/30/2022. Correlation is made with chest CT dated 06/15/2013. A right paratracheal density is unchanged and corresponds to a thyroid goiter. The heart is enlarged noting atherosclerotic calcification of the thoracic aorta. There is prominence of the pulmonary vasculature. Enlargement of the central pulmonary vessels suggest pulmonary artery hypertension. Emphysema and chronic interstitial thickening is similar to previous. A bullae in the left midlung is unchanged. Airspace opacities are seen at both lung bases. No large pleural effusion or pneumothorax is seen. The skeletal structures are osteopenic. The bony thorax is grossly intact. Degenerative change is noted throughout the thoracic spine. IMPRESSION: 1. Cardiomegaly and emphysema with prominence of the pulmonary vasculature. Correlate clinically for evidence of fluid overload/congestive change. 2. Dependent airspace opacities could represent scarring/atelectasis. An infectious/inflammatory pneumonitis is not excluded and clinical correlation will be required. ACT 112: Negative or not required by law. Electronically signed by: Yunier Ledesma M.D. 01/23/2023 3:46 PM Head CTA 01/23/23 15:11 CT angio neck with con, CT head/brain wo con, CT angio head w con CLINICAL HISTORY: neuro deficit, acute stroke suspected TECHNIQUE: Contiguous axial CT images of the head were acquired from the base of the skull to the vertex without intravenous contrast administration. CT angiography of the head and neck was performed following intravenous administration of iodinated contrast. Coronal and sagittal MIPS were obtained from the axial data set and were submitted for review. Automated dose lowering techniques and/or adjustment according to patient size were utilized for this examination. All measurements were calculated based on NASCET criteria. CT DOSE: 1296.86 mGy.cm Comparison: None available at the time of this dictation. FINDINGS: CT head: Areas of decreased attenuation are present in the periventricular and subcortical white matter bilaterally consistent with small vessel ischemic disease. Generalized cerebral atrophy with commensurate enlargement of the ventricles, sulci, and cisterns is also present. There is no acute intracranial hemorrhage or evidence of acute territorial infarction. No shift of the midline structures, mass effect, or extra-axial abnormalities are shown. Atherosclerotic calcifications are present in the intracranial segments of the internal carotid arteries. Biapical emphysema is seen. Multiple thyroid nodules are seen. CTA Neck: A 3 vessel aortic arch is shown. There is no significant atherosclerotic plaque in the aortic arch or the origins of the innominate, left common carotid, and left subclavian arteries. There is mild calcified atherosclerotic plaque at the bifurcation of the bilateral common carotid arteries without hemodynamically significant flow stenosis. There is no dissection present. The left vertebral artery is dominant. CTA Head: The anterior and posterior cerebral circulations are patent. Ather osclerotic disease is noted. IMPRESSION: 1. No acute intracranial hemorrhage, evidence of acute territorial infarction, or other acute intracranial disease process. 2. No occlusion, hemodynamically significant stenosis, or dissection in the major cervical arteries. 3. No occlusion, hemodynamically significant stenosis, aneurysm, dissection, or arteriovenous malformation in the major intracranial arteries. Assessment of stenosis of the internal carotid arteries is based on NASCET criteria. ACT 112: Negative or not required by law. Electronically signed by: Vinod Wyman M.D. 01/23/2023 3:39 PM Neck CTA 01/23/23 15:11 CT angio neck with con, CT head/brain wo con, CT angio head w con CLINICAL HISTORY: neuro deficit, acute stroke suspected TECHNIQUE: Contiguous axial CT images of the head were acquired from the base of the skull to the vertex without intravenous contrast administration. CT angiography of the head and neck was performed following intravenous administration of iodinated contrast. Coronal and sagittal MIPS were obtained from the axial data set and were submitted for review. Automated dose lowering techniques and/or adjustment according to patient size were utilized for this examination. All measurements were calculated based on NASCET criteria. CT DOSE: 1296.86 mGy.cm Comparison: None available at the time of this dictation. FINDINGS: CT head: Areas of decreased attenuation are present in the periventricular and subcortical white matter bilaterally consistent with small vessel ischemic disease. Generalized cerebral atrophy with commensurate enlargement of the ventricles, sulci, and cisterns is also present. There is no acute intracranial hemorrhage or evidence of acute territorial infarction. No shift of the midline structures, mass effect, or extra-axial abnormalities are shown. Atherosclerotic calcifications are present in the intracranial segments of the internal carotid arteries. Biapical emphysema is seen. Multiple thyroid nodules are seen. CTA Neck: A 3 vessel aortic arch is shown. There is no significant atherosclerotic plaque in the aortic arch or the origins of the innominate, left common carotid, and left subclavian arteries. There is mild calcified atherosclerotic plaque at the bifurcation of the bilateral common carotid arteries without hemodynamically significant flow stenosis. There is no dissection present. The left vertebral artery is dominant. CTA Head: The anterior and posterior cerebral circulations are patent. Atherosclerotic disease is noted. IMPRESSION: 1. No acute intracranial hemorrhage, evidence of acute territorial infarction, or other acute intracranial disease process. 2. No occlusion, hemodynamically significant stenosis, or dissection in the major cervical arteries. 3. No occlusion, hemodynamically significant stenosis, aneurysm, dissection, or arteriovenous malformation in the major intracranial arteries. Assessment of stenosis of the internal carotid arteries is based on NASCET criteria. ACT 112: Negative or not required by law. Electronically signed by: Vinod Wyman M.D. 01/23/2023 3:[address] 01/24/23 08:00 CT OF THE HEAD WITHOUT CONTRAST CLINICAL HISTORY: Aphasia. COMPARISON STUDY: Head CT, CTA of the head and MRI of the brain January 23, 2023. CT DOSE: 625.80 mGy.cm TECHNIQUE: Helical axial images of the head were obtained without IV contrast. Automated exposure control was utilized for the study. A dose lowering technique was utilized adhering to the principles of ALARA. FINDINGS: No acute intracranial hemorrhage is present. Ventricular system is unremarkable. Basal cisterns are patent. There are no findings to suggest acute dural sinus thrombosis or acute territorial infarct. There is equivocal sulcal effacement within the anterior left frontal lobe shown best on axial image 23 of 32. This was not clearly evident on prior CT or MRI. This may be artifactual. There are no significant calvarial abnormalities. IMPRESSION: 1. No acute intracranial hemorrhage. 2. Apparent sulcal effacement within the anterior left frontal lobe, not clearly evident on prior CT or MRI. This may be artifactual however a follow-up MRI of the brain with and without contrast is recommended for further evaluation. ACT 112: Negative or not required by law. Electronically signed by: Matthew Ferreira M.D. 01/24/2023 8:55 AM Brain MRI 01/24/23 09:51 MRI OF THE BRAIN WITHOUT IV CONTRAST CLINICAL HISTORY: Change in mental status. Aphasia. COMPARISON STUDY: MRI of the brain dated 12/27/2022. CT of the brain dated 01/24/2023. TECHNIQUE: MRI of the brain was performed utilizing various T1 and T2-weighted sequences in the axial and sagittal planes. IV contrast was not administered for this examination. The examination is severely degraded by motion artifact. This degrades diagnostic utility. Coronal FLAIR imaging and postcontrast imaging could not be performed FINDINGS: Brain parenchyma: There is age-related involutional change noting moderate to advanced subcortical and periventricular microangiopathic and hepatic disease. There is no evidence of hemorrhage or mass effect. There are small foci of restricted diffusion seen along the high left frontal convexity on axial image #24, which is new from yesterday. This measures up to 1.1 cm in aggregate dimension, and it is unclear if this involves the cortex of the extra-axial space. There is apparent extra-axial soft tissue thickening in this region s uggested on sagittal image #14. No additional foci of restricted diffusion are identified. The cerebellar tonsils are normal in configuration. Ventricles, sulci, and cisterns: Prominent secondary to involutional change. Pituitary and sella: Unremarkable. Intracranial vasculature: Normal flow voids are maintained at the skull base. Orbits: The bony orbits are grossly intact. Orbital contents are normal in appearance. Sinuses and mastoids: Grossly clear. Calvarium: Unremarkable. Cervical cord: Partially visualized cervical spinal cord is normal in morphology and signal intensity. IMPRESSION: 1. Incomplete and severely motion compromises examination. This degrades diagnostic utility. 2. There are small foci of restricted diffusion identified on the high left anterior frontal convexity. This is new from yesterday, and it is unclear if this involves the cortex or the extra-axial space. There is also apparent extra- axial soft tissue thickening suggested at this site. Differential considerations include a focus of acute to subacute ischemia or possibly infection. A lumbar puncture is recommended for further evaluation. 3. No additional foci of restricted diffusion are identified. There is no evidence of hemorrhage or mass effect. ACT 112: Negative or not required by law. Electronically signed by: Yunier Ledesma M.D. 01/24/2023 12:59 PM Medications Administered Home Medications Medication Instructions Recorded Confirmed Last Taken adalimumab 40 mg/0.8 mL 40 mg subcut Q14D 01/23/23 01/23/23 Unknown subcutaneous pen kit (Humira Pen) albuterol sulfate 2.5 mg/3 mL 2.5 mg continuous nebulization Q4 01/23/23 01/23/23 Unknown (0.083 %) solution for nebulization PRN Wheezing amlodipine 2.5 mg-benazepril 10 mg 1 cap PO QAM 01/23/23 01/23/23 Unknown capsule cyanocobalamin (vitamin B-12) 1,000 mcg IM MONTHLY 01/23/23 01/23/23 Unknown 1,000 mcg/mL injection solution prednisone 5 mg tablet 5 mg PO QAM PRN RA flares 01/23/23 01/23/23 Unknown Active Medications Generic Name Dose Route Start Last Admin Trade Name Freq PRN Reason Stop Dose Admin Ceftriaxone Sodium 2,000 mg/ 70 mls @ 100 mls/hr 01/23/23 21:00 01/23/23 22:30 Dextrose IV 01/30/23 20:59 Infused Q24H EBENEZER Infusion Protocol Doxycycline Hyclate 100 mg/ 110 mls @ 50 mls/hr 01/23/23 21:00 01/24/23 10:50 Dextrose IV 01/30/23 20:59 Infused Q12H EBENEZER Infusion Sodium Chloride 1,000 mls @ 70 mls/hr 01/23/23 21:00 01/24/23 13:34 Nss 1000ml IV 01/25/23 01:34 70 mls/hr .[id number] EBENEZER Administration Levetiracetam 500 mg/ Sodium 105 mls @ 420 mls/hr 01/24/23 08:00 01/24/23 09:42 Chloride IV 02/23/23 07:59 Infused Q12H EBENEZER Infusion PG Care Time/CCT Total # of Minutes Spent Total Time Spent with Patient: Total time spent is greater than 50% in coordination of care (as documented) at patient's floor/unit and/or counseling patient: Total pulmonary time spent speaking and examining patient, speaking to patient's , reviewing all of his diagnostic studies and discussing his pulmonary management with the pulmonary team, including Rao Contreras PA-C, exclusive of any invasive procedures or family conferences today was 48 minutes on 01/24/2023. Coding Level of Care Code 34796 IN/OBS CONSULT LVL 3,45M Diagnoses Mixed aphasia R47.01 Rheumatoid arthritis M06.[address] of brain R90.89 Bronchiectasis J47.9 COPD (chronic obstructive pulmonary disease) with emphysema J43.9
[2023-01-24] MEDS: cefTRIAXone SODIUM 2,000 MG in DEXTROSE 5% 50 ML IV SCH (20:36)
[2023-01-25] MEDS ORDERED: SODIUM CHLORIDE 0.9% 1,000 ML IV SCH (01:45)
[2023-01-25 07:02] LABS: Hematocrit (blood only) 40.6 % (42.0-52.0); Hemoglobin 13.4 g/dl (14.0-18.0); Mean Corpuscular Hemoglobin 29.8 pg (25.0-34.0); Mean Corpuscular Volume 90.4 fL (80.0-100.0); Mean Platelet Volume 9.5 fL (9.4-12.4); Platelet Count 376 K/uL (130-400); RDW Coefficient of Variation 13.9 % (11.5-14.5); RDW Standard Deviation 45.8 fL (36.4-46.3); Red Blood Count 4.49 M/uL (4.70-6.10); White Blood Count 10.57 K/ul (4.8-10.8)
[2023-01-25 07:23] LABS: Albumin Globulin Ratio 0.6 (0.9-2); Albumin Level 2.9 gm/dl (3.4-5.0); Bilirubin,Total 0.6 mg/dl (0.2-1.0); Creatinine Clr Calc Pharmacy 57.5 ml/min; Est GFR (Non-African American) 76.8 ml/min; Globulin 4.5 gm/dl (2.5-4.0); Magnesium 1.7 mg/dl (1.7-2.4); Phosphorus 3.2 mg/dl (2.5-4.9); Potassium 4.3 mmol/L (3.5-5.1); Total Protein 7.4 gm/dl (6.0-8.3)
[2023-01-25] MEDS ORDERED: LORazepam 2 MG/1 ML VIAL IV PRN (07:39)
[2023-01-25] MEDS: levETIRAcetam 500 MG in 0.9 % SODIUM CHLORIDE 100 ML IV SCH ×2 (07:41→19:58)
[2023-01-25] MEDS: DOXYCYCLINE HYCLATE 100 MG in DEXTROSE 5% 100 ML IV SCH (07:41)
[2023-01-25] MEDS: D5W AND NSS 1,000 ML IV SCH ×2 (08:04→21:57)
--- NOTE | 2023-01-25 10:16 | Hospitalist Progress Note ---
Date of Service January 25, 2023 Assessment & Plan (1) Mixed aphasia: (2) HTN (hypertension): (3) Altered mental status: (4) Rheumatoid arthritis: (5) COPD (chronic obstructive pulmonary disease): (6) Fever of unknown origin: Plan Mixed Aphasia: Altered mental status: 77-year-old male with history of rheumatoid arthritis (on Humira Q 8 weeks), spinal stenosis, HTN, pernicious anemia, COPD emphysema that presented to the ED after being noted to have altered mental status changes. Last well-known 1:05 PM 01/23/2023. Initially patient was not speaking and would not smile or follow any commands. Telestroke was paged at 3:25 PM and keppra loading with Neurological imaging were recommended. Chest x-ray negative for acute cardiopulmonary disease Head CT, head/ neck CTA were negative for ischemia, midline shift, acute subdural or intracranial hemorrhage. Brain MRI w/o co on 01/23/23 was negative for acute ischemia, masses or tumors or hemorrhage. Repeat CT head noted sulcal effacement within anterior frontal lobe. MRI brain w/wo co on 01/24/23 though motion compromised noted small foci of restricted diffusion in high left anterior frontal convexity. Differential include acute/subacute ischemia vs infection CRP and ESR are elevated TSH normal. Lyme screen negative LP done today Preliminary result showed WBC of 291, CSF protein of 114.9 Preliminary results suggest infectious cause Possible bacterial meningitis CSF PCR negative for HSV IV ceftriaxone 2g q12h Start IV ampicillin Discussed with Neurologist. Give IV dexamethasone Will follow up outstanding workup Continue Keppra Per Admitting Dr, had reported intermittent fevers at home. No fever since admission. No leukocytosis Follow up infectious workup Rheumatoid arthritis: Chronic stable On Humira q. 8 weeks; hold while inpatient Takes prednisone 5 mg daily COPD emphysema and bronchiectasis: Per Admitting Dr, patient had cough with thick yellow sputum Pt saw Pulmonary on 11/16 and recommended Bronchoscopy. Patient canceled bronch as he did not want to drive to [facility] for it and wanted to possibly switch to [facility] for further evaluation. Pulm evaluation noted Will need pulm eval outpatient to continue workup CKD: On admission, Creatinine 1.34; baseline per [facility] records 1.2-1.4 Cr is 0.94 today Hypertension: BP stable Hold home antihypertensives Dyslipidemia: Does not take any medications for this Lipid panel on 11/12/22: TG 115, HDL 41, LDL 114 Disposition: PCP: Dr. Joseph CODE STATUS: Full code VTE prophylaxis:TEDS + SCDS for today. Plan for pharm agent tomorrow I called and updated her I spent a total of 55 minutes coordinating, documenting and providing care for this patient excluding time spent in performance of separately billed services Admission and Anticipated Discharge Date Admission Date: January 23, 2023 Subjective Patient seen and examined on return from LP Patient currently drowsy due to low dose ativan given for procedure Unable to get ROS due aphasia Physical Exam Constitutional: + well hydrated; no acute distress Drowsy Eyes: PERRL, conjunctivae normal, anicteric sclerae ENMT: external ear and nose normal, oropharynx normal Respiratory: normal respiratory effort, lungs clear to auscultation Cardiovascular: Rate/Rhythm: regular rate and regular rhythm S1 S2 Gastrointestinal (Abdomen): normal bowel sounds, soft, nontender, no hepatosplenomegaly Neurologic: PERRL, EOMI, no facial palsy Moves all extremities +Expressive aphasia Results & Data Results & Data Vital Signs (Past 12 Hours) Vital Signs Temp Pulse Pulse Resp BP Pulse Ox O2 Del Method 01/25/23 10:05 36.8 C 69 16 115/83 100 Room Air 01/25/23 08:00 63 01/25/23 08:00 Room Air 01/25/23 07:12 36.9 C 65 18 133/74 98 Room Air 01/25/23 02:46 36.8 C 76 16 152/77 H 96 Room Air 01/24/23 23:00 36.8 C 71 20 149/67 H 97 Room Air 01/24/23 23:00 76 Laboratory Results Abnormal lab results 01/25/23 01/25/23 01/25/23 Range/Units 06:17 06:17 09:56 RBC 4.49 L (4.70-6.10) M/uL Hgb 13.4 L (14.0-18.0) g/dl Hct 40.6 L (42.0-52.0) % Sodium 132 L (136-145) mmol/L Glucose 68 L (70-99(Fasting)) mg/dl AST 10 L (13-39) U/L ALT 5 L (7-52) U/L Albumin 2.9 L (3.4-5.0) gm/dl Globulin 4.5 H (2.5-4.0) gm/dl Albumin/Globulin Ratio 0.6 L (0.9-2) CSF WBC (Auto) (0-5) /uL CSF Total Protein 114.9 H (15-45) mg/dl 01/25/23 Range/Units 09:56 RBC (4.70-6.10) M/uL Hgb (14.0-18.0) g/dl Hct (42.0-52.0) % Sodium (136-145) mmol/L Glucose (70-99(Fasting)) mg/dl AST (13-39) U/L ALT (7-52) U/L Albumin (3.4-5.0) gm/dl Globulin (2.5-4.0) gm/dl Albumin/Globulin Ratio (0.9-2) CSF WBC (Auto) 291 H* (0-5) /uL CSF Total Protein (15-45) mg/dl
[2023-01-25 10:18] LABS: Total Protein CSF 114.9 mg/dl (15-45)
[2023-01-25 10:33] LABS: Appearance CSF Clear; CSF Count Tube # 3; CSF Xanthrochromic No xanthochromia; Color CSF Colorless; White Blood Cell CSF Auto 291 /uL (0-5)
[2023-01-25 11:35] LABS: Cryptococcus neoformans/ga PCR Not Detected (NotDetected); Cytomegalovirus PCR Not Detected (NotDetected); Enterovirus PCR Not Detected (NotDetected); Escherichia coli K1 PCR Not Detected (NotDetected); Haemophilius influenzae PCR Not Detected (NotDetected); Herpes Simplex Virus 1 PCR Not Detected (NotDetected); Herpes Simplex Virus 2 PCR Not Detected (NotDetected); Human Herpes Virus 6 PCR Not Detected (NotDetected); Human Parechovirus PCR Not Detected (NotDetected); Listeria monocytogenes PCR Not Detected (NotDetected); Neisseria meningitidis PCR Not Detected (NotDetected); Streptococcus agalactiae PCR Not Detected (NotDetected); Streptococcus pneumoniae PCR Not Detected (NotDetected); Varicella Zoster Virus PCR Not Detected (NotDetected)
--- NOTE | 2023-01-25 11:42 | Fluoroscopy Report ---
Lumbar puncture under fluoroscopy INDICATION: Altered mental status; evaluate for meningitis PROCEDURE: Procedure and risks were explained. Informed consent was obtained over the phone. Final ti meout was completed. The patient was placed prone on the fluoroscopic exam table. The lower lumbar re gion was prepped and draped in sterile fashion. 1% lidocaine was utilized for skin anesthesia. Utilizing fluoroscopic guidance, a 22-gauge needle was advanced into the intrathecal space at the L2- 3 disc space level. 2 permanent spot images were obtained. Approximately 8 mL of clear CSF fluid was removed and sent to the lab. The needle was removed and Band-Aid applied. The patient tolerated the p rocedure well. Vital signs will be monitored postprocedure. Total fluoroscopy time 31 seconds. DAP is 7.58 mcGy/m2. IMPRESSION: Lumbar puncture as above. Performed, dictated, and signed by Ulises Figueredo PA-C; to be co-signed by Dr. Matthew Ferreira. Electronically signed by: Matthew Ferreira M.D. 01/25/2023 1:09 PM
--- NOTE | 2023-01-25 11:59 | Pulmonology Progress Note ---
Date of Service January 25, 2023 Assessment & Plan (1) Mixed aphasia: (2) Rheumatoid arthritis: (3) Abnormal CT of brain: (4) Bronchiectasis: (5) COPD (chronic obstructive pulmonary disease) with emphysema: Plan ASSESSMENT/PLAN: 1. Aphasia and STroke-Like Symptoms -undergoing stroke workup -Left anterior frontal convexity on brain MRI which may represent acute to subacute ischemia or possible infection. -Patient underwent lumbar puncture -Continue ampicillin, doxycycline and ceftriaxone 2. Bronchiectasis Hx? -previously undergoing workup for COPD/Emphysema -recommend HRCT of Chest -continue further followup and workup after stoke evaluation -will require bronchoscopy -Patient can have his pulmonary evaluation and work-up done on an outpatient basis and followed up by [facility] pulmonary clinic 3. Tobacco Abuse Hx -quit 20-25yrs ago 4. Abnormal Chest CT Scan -Advanced Emphysema 5. Thyroid Nodules per Chest CT scan 6. Rheumatoid Arthritis At this time, after long discussion with patient's and being the patient's primary cause of admission is not due to his respiratory status or bronchiectasis patient can have entire work-up from the pulmonary service done at in the pulmonary clinic the pulmonary team will sign off at this time. Thank you for allowing us to participate in the care of management of this patient. Admission and Anticipated Discharge Date Admission Date: January 23, 2023 Subjective Patient remains aphasic. Recently underwent lumbar puncture but remains on room air with no respiratory problems Review of Systems Review of Systems: Unobtainable due to cognitive status Physical Exam Constitutional: WD/WN, vitals as above Eyes: PERRL, conjunctivae normal, anicteric sclerae ENMT: external ear and nose normal, oropharynx normal Neck: trachea midline, no thyromegaly Respiratory: normal respiratory effort, lungs clear to auscultation Cardiovascular: RRR, no murmur, no edema Gastrointestinal (Abdomen): normal bowel sounds, soft, nontender, no hepatosplenomegaly Musculoskeletal: no cyanosis or clubbing, extremities motor strength 5/5 Skin: no rashes, warm and dry Psychiatric: A+Ox3, euthymic affect Results & Data Results & Data Vital Signs (Past 12 Hours) Vital Signs Temp Pulse Pulse Resp BP Pulse Ox O2 Del Method 01/25/23 11:00 36.6 C 65 18 124/78 96 Room Air 01/25/23 10:37 36.8 C 65 17 133/78 99 Room Air 01/25/23 10:22 36.7 C 71 18 151/73 H 98 Room Air 01/25/23 10:05 36.8 C 69 16 115/83 100 Room Air 01/25/23 08:00 63 01/25/23 08:00 Room Air 01/25/23 07:12 36.9 C 65 18 133/74 98 Room Air 01/25/23 02:46 36.8 C 76 16 152/77 H 96 Room Air Laboratory Results Laboratory Results WBC 10.57 K/ul (4.8-10.8) 01/25/23 06:17 RBC 4.49 M/uL (4.70-6.10) L 01/25/23 06:17 Hgb 13.4 g/dl (14.0-18.0) L 01/25/23 06:17 Hct 40.6 % (42.0-52.0) L 01/25/23 06:17 MCV 90.4 fL (80.0-100.0) 01/25/23 06:17 MCH 29.8 pg (25.0-34.0) 01/25/23 06:17 MCHC 33.0 g/dL (32.0-36.0) 01/25/23 06:17 RDW Std Deviation 45.8 fL (36.4-46.3) 01/25/23 06:17 RDW Coeff of Clint 13.9 % (11.5-14.5) 01/25/23 06:17 Plt Count 376 K/uL (130-400) 01/25/23 06:17 MPV 9.5 fL (9.4-12.4) 01/25/23 06:17 Immature Gran % (Auto) 0.8 % 01/23/23 15:14 Neut % (Auto) 77.1 % 01/23/23 15:14 Lymph % (Auto) 10.9 % 01/23/23 15:14 [place] % (Auto) 8.4 % 01/23/23 15:14 Eos % (Auto) 2.1 % 01/23/23 15:14 Baso % (Auto) 0.7 % 01/23/23 15:14 Neut # (Auto) 6.46 K/uL (1.40-6.50) 01/23/23 15:14 Lymph # (Auto) 0.91 K/uL (1.20-3.40) L 01/23/23 15:14 [place] # (Auto) 0.70 K/uL (0.11-0.59) H 01/23/23 15:14 Eos # (Auto) 0.18 K/uL (0.00-0.50) 01/23/23 15:14 Baso # (Auto) 0.06 K/uL (0.00-0.20) 01/23/23 15:14 Immature Gran # (Auto) 0.07 K/uL (0.01-0.20) 01/23/23 15:14 ESR 126 mm/hr (0-20) H 01/24/23 10:14 PT 12.1 Seconds (9.0-12.0) H 01/23/23 15:14 INR 1.1 (0.9-1.1) 01/23/23 15:14 APTT 29.3 Seconds (21.0-31.0) 01/23/23 15:14 PTT Ratio 1.0 01/23/23 15:14 Sodium 132 mmol/L (136-145) L 01/25/23 06:17 Potassium 4.3 mmol/L (3.5-5.1) 01/25/23 06:17 Chloride 100 mmol/L (98-107) 01/25/23 06:17 Carbon Dioxide 21 mmol/L (21-32) 01/25/23 06:17 Anion Gap 11 (3-11) 01/25/23 06:17 BUN 16 mg/dl (6-23) 01/25/23 06:17 Creatinine 0.94 mg/dl (0.6-1.4) 01/25/23 06:17 Est Cr Clr Drug Dosing 57.5 ml/min 01/25/23 06:17 Est GFR ( Amer) 89.0 ml/min 01/25/23 06:17 Est GFR (Non-Af Amer) 76.8 ml/min 01/25/23 06:17 BUN/Creatinine Ratio 17.0 (10-20) 01/25/23 06:17 Glucose 68 mg/dl (70-99(Fasting)) L 01/25/23 06:17 POC Glucose 144 mg/dl (70-99) H 01/23/23 15:13 Uric Acid 6.3 mg/dl (2.6-7.2) 01/23/23 20:35 Calcium 9.0 mg/dl (8.6-10.3) 01/25/23 06:17 Phosphorus 3.2 mg/dl (2.5-4.9) 01/25/23 06:17 Magnesium 1.7 mg/dl (1.7-2.4) 01/25/23 06:17 Total Bilirubin 0.6 mg/dl (0.2-1.0) 01/25/23 06:17 AST 10 U/L (13-39) L 01/25/23 06:17 ALT 5 U/L (7-52) L 01/25/23 06:17 Alkaline Phosphatase 58 U/L (34-104) 01/25/23 06:17 Troponin I High Sens 5.8 pg/ml (0-20) 01/23/23 15:14 C-Reactive Protein 17.56 mg/dl (0-0.5) H 01/24/23 10:14 Total Protein 7.4 gm/dl (6.0-8.3) 01/25/23 06:17 Albumin 2.9 gm/dl (3.4-5.0) L 01/25/23 06:17 Globulin 4.5 gm/dl (2.5-4.0) H 01/25/23 06:17 Albumin/Globulin Ratio 0.6 (0.9-2) L 01/25/23 06:17 Vitamin B12 780 pg/ml (180-914) 01/24/23 05:52 Procalcitonin 0.36 ng/ml (0-0.5) 01/25/23 06:17 TSH 1.318 uIu/ml (0.300-4.500) 01/24/23 10:14 Urine Color [place] 01/23/23 Unknown Urine Appearance Clear (Clear) 01/23/23 Unknown Urine pH 6.5 (4.5-7.5) 01/23/23 Unknown Ur Specific [place] 1.041 (1.000-1.030) H 01/23/23 Unknown Urine Protein Trace (Negative) H 01/23/23 Unknown Urine Glucose (UA) Negative (Negative) 01/23/23 Unknown Urine Ketones Negative (Negative) 01/23/23 Unknown Urine Blood 3+ (Negative) H 01/23/23 Unknown Urine Nitrite Negative (Negative) 01/23/23 Unknown Urine Bilirubin Negative (Negative) 01/23/23 Unknown Urine Urobilinogen Negative (Negative) 01/23/23 Unknown Ur Leukocyte Esterase Negative (Negative) 01/23/23 Unknown Urine WBC (Auto) 1-5 /hpf (0-5) 01/23/23 Unknown Urine RBC (Auto) >30 /hpf (0-4) H 01/23/23 Unknown U Hyaline Cast (Auto) 1-5 /lpf (0-5) 01/23/23 Unknown U Epithel Cells (Auto) >30 /lpf (0-5) H 01/23/23 Unknown Urine Bacteria (Auto) Negative (Negative) 01/23/23 Unknown Ur Renal Epithelial Cell 0-5 /lpf (0-5) 01/23/23 Unknown Fluid Comment 01/25/23 09:56 CSF Appearance Clear 01/25/23 09:56 CSF Color Colorless 01/25/23 09:56 Xanthrochromic No xanthochromia 01/25/23 09:56 CSF WBC (Auto) 291 /uL (0-5) H* 01/25/23 09:56 CSF RBC 1 (0-) 01/25/23 09:56 CSF Cell Count Tube # 3 01/25/23 09:56 CSF Mononuclear % Auto 52.0 % 01/25/23 09:56 CSF Polynuclear WBCs 48.0 % 01/25/23 09:56 CSF Chemistry Tube # 1 01/25/23 09:56 CSF Glucose 42 mg/dl (40-70) 01/25/23 09:56 CSF Total Protein 114.9 mg/dl (15-45) H 01/25/23 09:56 CSF C.neoform/gat PCR Not Detected (NotDetected) 01/25/23 09:56 CSF CMV DNA (PCR) Not Detected (NotDetected) 01/25/23 09:56 CSF Enterovirus (PCR) Not Detected (NotDetected) 01/25/23 09:56 CSF E. coli K1 (PCR) Not Detected (NotDetected) 01/25/23 09:56 CSF H. influenzae (PCR) Not Detected (NotDetected) 01/25/23 09:56 CSF HSV I (PCR) Not Detected (NotDetected) 01/25/23 09:56 CSF HSV II (PCR) Not Detected (NotDetected) 01/25/23 09:56 CSF HHV 6 (PCR) Not Detected (NotDetected) 01/25/23 09:56 CSF L.monocytogenes PCR Not Detected (NotDetected) 01/25/23 09:56 CSF N. meningitidis PCR Not Detected (NotDetected) 01/25/23 09:56 CSF Parechovirus (PCR) Not Detected (NotDetected) 01/25/23 09:56 CSF S. agalactiae (PCR) Not Detected (NotDetected) 01/25/23 09:56 CSF S. pneumoniae (PCR) Not Detected (NotDetected) 01/25/23 09:56 CSF VZV DNA (PCR) Not Detected (NotDetected) 01/25/23 09:56 Lyme Disease IgG Ab Negative (Negative) 01/24/23 10:14 Lyme Disease IgM Ab Negative (Negative) 01/24/23 10:14 Impressions Chest X-Ray 01/23/23 15:11 SINGLE VIEW CHEST CLINICAL HISTORY: Neurological deficit. Stroke like symptoms. FINDINGS: An AP, portable, upright chest radiograph is compared to study dated 12/30/2022. Correlation is made with chest CT dated 06/15/2013. A right paratracheal density is unchanged and corresponds to a thyroid goiter. The heart is enlarged noting atherosclerotic calcification of the thoracic aorta. There is prominence of the pulmonary vasculature. Enlargement of the central pulmonary vessels suggest pulmonary artery hypertension. Emphysema and chronic interstitial thickening is similar to previous. A bullae in the left midlung is unchanged. Airspace opacities are seen at both lung bases. No large pleural effusion or pneumothorax is seen. The skeletal structures are osteopenic. The bony thorax is grossly intact. Degenerative change is noted throughout the thoracic spine. IMPRESSION: 1. Cardiomegaly and emphysema with prominence of the pulmonary vasculature. Correlate clinically for evidence of fluid overload/congestive change. 2. Dependent airspace opacities could represent scarring/atelectasis. An infectious/inflammatory pneumonitis is not excluded and clinical correlation will be required. ACT 112: Negative or not required by law. Electronically signed by: Yunier Ledesma M.D. 01/23/2023 3:46 PM Head CTA 01/23/23 15:11 CT angio neck with con, CT head/brain wo con, CT angio head w con CLINICAL HISTORY: neuro deficit, acute stroke suspected TECHNIQUE: Contiguous axial CT images of the head were acquired from the base of the skull to the vertex without intravenous contrast administration. CT angiography of the head and neck was performed following intravenous administration of iodinated contrast. Coronal and sagittal MIPS were obtained from the axial data set and were submitted for review. Automated dose lowering techniques and/or adjustment according to patient size were utilized for this examination. All measurements were calculated based on NASCET criteria. CT DOSE: 1296.86 mGy.cm Comparison: None available at the time of this dictation. FINDINGS: CT head: Areas of decreased attenuation are present in the periventricular and subcortical white matter bilaterally consistent with small vessel ischemic disease. Generalized cerebral atrophy with commensurate enlargement of the ventricles, sulci, and cisterns is also present. There is no acute intracranial hemorrhage or evidence of acute territorial infarction. No shift of the midline structures, mass effect, or extra-axial abnormalities are shown. Atherosclerotic calcifications are present in the intracranial segments of the internal carotid arteries. Biapical emphysema is seen. Multiple thyroid nodules are seen. CTA Neck: A 3 vessel aortic arch is shown. There is no significant atherosclerotic plaque in the aortic arch or the origins of the innominate, left common carotid, and left subclavian arteries. There is mild calcified atherosclerotic plaque at the bifurcation of the bilateral common carotid arteries without hemodynamically significant flow stenosis. There is no dissection present. The left vertebral artery is dominant. CTA Head: The anterior and posterior cerebral circulations are patent. Atherosclerotic disease is noted. IMPRESSION: 1. No acute intracranial hemorrhage, evidence of acute territorial infarction, or other acute intracranial disease process. 2. No occlusion, hemodynamically significant stenosis, or dissection in the major cervical arteries. 3. No occlusion, hemodynamically significant stenosis, aneurysm, dissection, or arteriovenous malformation in the major intracranial arteries. Assessment of stenosis of the internal carotid arteries is based on NASCET criteria. ACT 112: Negative or not required by law. Electronically signed by: Vinod Wyman M.D. 01/23/2023 3:39 PM Neck CTA 01/23/23 15:11 CT angio neck with con, CT head/brain wo con, CT angio head w con CLINICAL HISTORY: neuro deficit, acute stroke suspected TECHNIQUE: Contiguous axial CT images of the head were acquired from the base of the skull to the vertex without intravenous contrast administration. CT angiography of the head and neck was performed following intravenous administration of iodinated contrast. Coronal and sagittal MIPS were obtained from the axial data set and were submitted for review. Automated dose lowering techniques and/or adjustment according to patient size were utilized for this examination. All measurements were calculated based on NASCET criteria. CT DOSE: 1296.86 mGy.cm Comparison: None available at the time of this dictation. FINDINGS: CT head: Areas of decreased attenuation are present in the periventricular and subcortical white matter bilaterally consistent with small vessel ischemic disease. Generalized cerebral atrophy with commensurate enlargement of the ventricles, sulci, and cisterns is also present. There is no acute intracranial hemorrhage or evidence of acute territorial infarction. No shift of the midline structures, mass effect, or extra-axial abnormalities are shown. Atherosclerotic calcifications are present in the intracranial segments of the internal carotid arteries. Biapical emphysema is seen. Multiple thyroid nodules are seen. CTA Neck: A 3 vessel aortic arch is shown. There is no significant atherosclerotic plaque in the aortic arch or the origins of the innominate, left common carotid, and left subclavian arteries. There is mild calcified atherosclerotic plaque at the bifurcation of the bilateral common carotid arteries without hemodynamically significant flow stenosis. There is no dissection present. The left vertebral artery is dominant. CTA Head: The anterior and posterior cerebral circulations are patent. Atherosclerotic disease is noted. IMPRESSION: 1. No acute intracranial hemorrhage, evidence of acute territorial infarction, or other acute intracranial disease process. 2. No occlusion, hemodynamically significant stenosis, or dissection in the major cervical arteries. 3. No occlusion, hemodynamically significant stenosis, aneurysm, dissection, or arteriovenous malformation in the major intracranial arteries. Assessment of stenosis of the internal carotid arteries is based on NASCET criteria. ACT 112: Negative or not required by law. Electronically signed by: Vinod Wyman M.D. 01/23/2023 3:[address] 01/24/23 08:00 CT OF THE HEAD WITHOUT CONTRAST CLINICAL HISTORY: Aphasia. COMPARISON STUDY: Head CT, CTA of the head and MRI of the brain January 23, 2023. CT DOSE: 625.80 mGy.cm TECHNIQUE: Helical axial images of the head were obtained without IV contrast. Automated exposure control was utilized for the study. A dose lowering technique was utilized adhering to the principles of ALARA. FINDINGS: No acute intracranial hemorrhage is present. Ventricular system is unremarkable. Basal cisterns are patent. There are no findings to suggest acute dural sinus thrombosis or acute territorial infarct. There is equivocal sulcal effacement within the anterior left frontal lobe shown best on axial image 23 of 32. This was not clearly evident on prior CT or MRI. This may be artifactual. There are no significant calvarial abnormalities. IMPRESSION: 1. No acute intracranial hemorrhage. 2. Apparent sulcal effacement within the anterior left frontal lobe, not clearly evident on prior CT or MRI. This may be artifactual however a follow-up MRI of the brain with and without contrast is recommended for further evaluation. ACT 112: Negative or not required by law. Electronically signed by: Matthew Ferreira M.D. 01/24/2023 8:55 AM Brain MRI 01/24/23 09:51 MRI OF THE BRAIN WITHOUT IV CONTRAST CLINICAL HISTORY: Change in mental status. Aphasia. COMPARISON STUDY: MRI of the brain dated 12/27/2022. CT of the brain dated 01/24/2023. TECHNIQUE: MRI of the brain was performed utilizing various T1 and T2-weighted sequences in the axial and sagittal planes. IV contrast was not administered for this examination. The examination is severely degraded by motion artifact. This degrades diagnostic utility. Coronal FLAIR imaging and postcontrast imaging could not be performed FINDINGS: Brain parenchyma: There is age-related involutional change noting moderate to advanced subcortical and periventricular microangiopathic and hepatic disease. There is no evidence of hemorrhage or mass effect. There are small foci of restricted diffusion seen along the high left frontal convexity on axial image #24, which is new from yesterday. This measures up to 1.1 cm in aggregate dimension, and it is unclear if this involves the cortex of the extra-axial space. There is apparent extra-axial soft tissue thickening in this region suggested on sagittal image #14. No additional foci of restricted diffusion are identified. The cerebellar tonsils are normal in configuration. Ventricles, sulci, and cisterns: Prominent secondary to involutional change. Pituitary and sella: Unremarkable. Intracranial vasculature: Normal flow voids are maintained at the skull base. Orbits: The bony orbits are grossly intact. Orbital contents are normal in appearance. Sinuses and mastoids: Grossly clear. Calvarium: Unremarkable. Cervical cord: Partially visualized cervical spinal cord is normal in morphology and signal intensity. IMPRESSION: 1. Incomplete and severely motion compromises examination. This degrades diagnostic utility. 2. There are small foci of restricted diffusion identified on the high left anterior frontal convexity. This is new from yesterday, and it is unclear if this involves the cortex or the extra-axial space. There is also apparent extra- axial soft tissue thickening suggested at this site. Differential considerations include a focus of acute to subacute ischemia or possibly infection. A lumbar puncture is recommended for further evaluation. 3. No additional foci of restricted diffusion are identified. There is no evidence of hemorrhage or mass effect. ACT 112: Negative or not required by law. Electronically signed by: Yunier Ledesma M.D. 01/24/2023 12:59 PM Lumbar Puncture 01/25/23 07:39 Lumbar puncture under fluoroscopy INDICATION: Altered mental status; evaluate for meningitis PROCEDURE: Procedure and risks were explained. Informed consent was obtained over the phone. Final timeout was completed. The patient was placed prone on the fluoroscopic exam table. The lower lumbar region was prepped and draped in sterile fashion. 1% lidocaine was utilized for skin anesthesia. Utilizing fluoroscopic guidance, a 22-gauge needle was advanced into the intrathecal space at the L2-3 disc space level. 2 permanent spot images were obtained. Approximately 8 mL of clear CSF fluid was removed and sent to the lab. The needle was removed and Band-Aid applied. The patient tolerated the procedure well. Vital signs will be monitored postprocedure. Total fluoroscopy time 31 seconds. DAP is 7.58 mcGy/m2. IMPRESSION: Lumbar puncture as above. Performed, dictated, and signed by Ulises Figueredo PA-C; to be co-signed by Dr. Matthew Ferreira. Medications Administered Home Medications Medication Instructions Recorded Confirmed Last Taken adalimumab 40 mg/0.8 mL 40 mg subcut Q14D 01/23/23 01/23/23 Unknown subcutaneous pen kit (Humira Pen) albuterol sulfate 2.5 mg/3 mL 2.5 mg continuous nebulization Q4 01/23/23 01/23/23 Unknown (0.083 %) solution for nebulization PRN Wheezing amlodipine 2.5 mg-benazepril 10 mg 1 cap PO QAM 01/23/23 01/23/23 Unknown capsule cyanocobalamin (vitamin B-12) 1,000 mcg IM MONTHLY 01/23/23 01/23/23 Unknown 1,000 mcg/mL injection solution prednisone 5 mg tablet 5 mg PO QAM PRN RA flares 01/23/23 01/23/23 Unknown Active Medications Generic Name Dose Route Start Last Admin Trade Name Freq PRN Reason Stop Dose Admin Levetiracetam 500 mg/ Sodium 105 mls @ 420 mls/hr 01/24/23 08:00 01/25/23 08:01 Chloride IV 02/23/23 07:59 Infused Q12H EBENEZER Infusion Dextrose/Sodium Chloride 1,000 mls @ 80 mls/hr 01/25/23 08:00 01/25/23 08:04 D5w And Nss IV 02/24/23 07:59 80 mls/hr .[id number] EBENEZER Administration Lorazepam 0.5 mg 01/25/23 07:39 01/25/23 08:36 Lorazepam 2 Mg/1 Ml Vial IV 02/24/23 07:38 0.5 mg ONCE PRN Administration Prior to Lumbar puncture PG Care Time/CCT Total # of Minutes Spent Total Time Spent with Patient: Total time spent is greater than 50% in coordination of care (as documented) at patient's floor/unit and/or counseling patient: Coding Level of Care Code 59439 SUB INP/OBS CARE 2/35MIN Diagnoses Mixed aphasia R47.01 Rheumatoid arthritis M06.[address] of brain R90.89 Bronchiectasis J47.9 COPD (chronic obstructive pulmonary disease) with emphysema J43.9
[2023-01-25] MEDS ORDERED: dexAMETHasone 4 MG in SYRINGE 0 ML IV ONE (12:00)
[2023-01-25] MEDS: cefTRIAXone SODIUM 2,000 MG in DEXTROSE 5% 50 ML IV SCH ×2 (12:23→20:23)
[2023-01-25] MEDS: AMPICILLIN 2,000 MG in 0.9 % SODIUM CHLORIDE 100 ML IV SCH ×3 (13:26→21:55)
[2023-01-26] MEDS: AMPICILLIN 2,000 MG in 0.9 % SODIUM CHLORIDE 100 ML IV SCH ×6 (02:05→21:01)
[2023-01-26 06:00] LABS: Hematocrit (blood only) 39.1 % (42.0-52.0); Hemoglobin 12.7 g/dl (14.0-18.0); Mean Corpuscular Hemoglobin 29.2 pg (25.0-34.0); Mean Corpuscular Hgb Conc 32.5 g/dL (32.0-36.0); Mean Corpuscular Volume 89.9 fL (80.0-100.0); Mean Platelet Volume 9.6 fL (9.4-12.4); Platelet Count 406 K/uL (130-400); RDW Coefficient of Variation 13.6 % (11.5-14.5); RDW Standard Deviation 44.9 fL (36.4-46.3); Red Blood Count 4.35 M/uL (4.70-6.10); White Blood Count 12.91 K/ul (4.8-10.8)
[2023-01-26 06:16] LABS: Albumin Globulin Ratio 0.6 (0.9-2); Albumin Level 2.6 gm/dl (3.4-5.0); Bilirubin,Total 0.3 mg/dl (0.2-1.0); C Reactive Protein 21.15 mg/dl (0-0.5); Calcium 8.7 mg/dl (8.6-10.3); Creatinine Clr Calc Pharmacy 54.1 ml/min; Est GFR (African American) 82.6 ml/min; Est GFR (Non-African American) 71.3 ml/min; Globulin 4.1 gm/dl (2.5-4.0); Magnesium 1.8 mg/dl (1.7-2.4); Phosphorus 3.2 mg/dl (2.5-4.9); Potassium 4.2 mmol/L (3.5-5.1); Total Protein 6.7 gm/dl (6.0-8.3)
[2023-01-26] MEDS ORDERED: DEXAMETHASONE SOD INJ 4 MG/ML VIAL IV STA (08:07)
--- NOTE | 2023-01-26 08:09 | Neurology Progress Note ---
Date of Service January 26, 2023 Assessment & Plan (1) Mixed aphasia: (2) Abnormal CT of brain: Plan Patient had an acute onset of a mixed aphasia (mostly expressive but some receptive) January 23. There is no history that the patient has an underlying dementia, and he was quite awake and alert on January 24 when I 1st saw him. There was no evidence for delirium, however, he had a significant expressive and myqp-ci-cxikitvj receptive mixed aphasia. At that time he had no other focal findings on exam and he did not have meningeal signs. Initial MRI imaging January 23, showed no stroke but there was a concern about a left frontal abnormality consistent with inflammation or infection on imaging. Today the patient's speech is markedly improved. He converses more fluently, with more words used. Again, he has no focal deficits on examination or meningeal signs. MRI of the brain January 24 showed a small acute stroke near the periphery high up in the left anterior convexity. There was also some dural thickening consistent with infection or inflammation. LP was performed which showed a marked increase in white cells and an elevated protein. No bacteria were seen on Gram stain (although the patient did get 2 g of ceftriaxone 1 time on January 23). BioFire was negative. The patient has been on levetiracetam 500 mg q.12 hours since January 24. He is had no seizures identified this hospitalization. Overall, his clinical picture is consistent with a small stroke and infection. The etiology is not yet apparent. Cultures and other LP results are pending. Whatever the etiology, however, he is clinically improved. 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 Recommendations: 1. Keep levetiracetam 500 mg twice daily, for now. 2. Awaiting final LP results. 3. Continue ceftriaxone and ampicillin for now. 4. Increase activity as able (out of bed to chair) and continue speech, physical, and occupational therapy. Consider rehabilitation hospital after his acute stay 5. Case management evaluation-considering rehabilitation hospital stay versus home with home health 6. Continue dexamethasone 4 mg daily (or 2 mg twice daily). Do this for the next 2 days and then decrease to 2 mg a day for several days. Overall, I spent a total of 55 minutes with this case including review of records, review of MRI films, direct evaluation the patient at bedside, report generation, and discussion of the case with the patient and RN at bedside, the patient's via telephone, and Dr. Streeter, including differential diagnosis and treatment options. Admission and Anticipated Discharge Date Admission Date: January 23, 2023 Subjective Nursing reports no seizures and no issues overnight. The patient has no complaint of pain or headache. He does not feel dizzy, weak, or have any numbness. Feels that his vision is normal also CBC shows a white count of 12.1 with a mild anemia. Chem profile is largely unremarkable. CRP is elevated at 21. The patient had an MRI of the brain January 24 without contrast, that showed a very small acute stroke high up on the left anterior convexity. In addition there was some thickening of soft tissue over top of this area suggesting inflammation or infection. He had considerable movement artifact in most of the sequences and likely has cdce-co-tovxodyb old small-vessel ischemia. I reviewed these films. Lumbar puncture was performed January 25 and the fluid was clear and colorless. There was no xanthochromia. There were 291 white cells (52% monocytes and 48% polynuclear cells). Glucose was normal at 42 and total protein was elevated 114.9. CSF BioFire had no organisms detected including no HSV. G stain showed no organisms present. Special protein studies and Lyme titers are pending. I do note that the serum Lyme test was unremarkable. Cultures have not been read yet. The patient has been on levetiracetam 500 mg q.12 hours IV, initiated January 24. I spoke with the patient's via telephone. Baseline is excellent from a mental status standpoint. He has no speech or language issues, but he is suffering from significant rheumatoid arthritis. He has considerable pain in the hips and knees and does not ambulate well at all. He is resistant to joint replacement. They were in the process of arranging home health for him prior to his hospitalization. Results & Data Vital Signs (Past 12 Hours) Vital Signs Temp Pulse Pulse Resp BP Pulse Ox O2 Del Method 01/26/23 07:32 60 01/26/23 04:06 36.9 C 72 16 112/64 95 Room Air 01/25/23 23:45 36.9 C 72 18 112/67 95 Room Air 01/25/23 22:28 58 L 01/25/23 20:00 Room Air 01/25/23 19:57 36.7 C 76 16 116/67 95 Room Air Exam (Neuro) Physical Exam: Patient was sleeping when I came into the room but he was easily aroused with voice and gentle shaking. He made eye contact and had much better speech today. He could say many more words and express himself better. He followed one-step commands quickly and accurately. I did not detect dysarthria but he did have some mild expressive aphasia still. Extraocular eye muscles are intact without nystagmus. There is no facial droop. Tongue is midline. With outstretched arms there is no drift. There is no ataxia with fuwwzt-[id number] testing. I see no resting, postural, or action tremor. Strength is 5/5 diffusely in all major muscle groups in arms and legs both proximally and distally. Reflexes are 1/4 throughout and toes are downgoing to plantar stimulation bilaterally. PG Care Time/CCT Total # of Minutes Spent Total Time Spent with Patient: Total time spent is greater than 50% in coordination of care (as documented) at patient's floor/unit and/or counseling patient: Coding Level of Care Code 22846 SUB INP/OBS CARE 3/50MIN Diagnoses Mixed aphasia R47.[address] of brain R90.89 Time Spent (min) 55
[2023-01-26] MEDS ORDERED: dexAMETHasone 4 MG in SYRINGE 0 ML IV STA (08:11)
[2023-01-26] MEDS: levETIRAcetam 500 MG in 0.9 % SODIUM CHLORIDE 100 ML IV SCH ×2 (08:33→19:54)
[2023-01-26] MEDS: cefTRIAXone SODIUM 2,000 MG in DEXTROSE 5% 50 ML IV SCH ×2 (08:34→20:12)
--- NOTE | 2023-01-26 11:01 | Hospitalist Progress Note ---
Date of Service January 26, 2023 Assessment & Plan (1) Mixed aphasia: (2) HTN (hypertension): (3) Altered mental status: (4) Rheumatoid arthritis: (5) COPD (chronic obstructive pulmonary disease): (6) Fever of unknown origin: Plan Mixed Aphasia: Altered mental status: 77-year-old male with history of rheumatoid arthritis (on Humira Q 8 weeks), spinal stenosis, HTN, pernicious anemia, COPD emphysema that presented to the ED after being noted to have altered mental status changes. Last well-known 1:05 PM 01/23/2023. Initially patient was not speaking and would not smile or follow any commands. Telestroke was paged at 3:25 PM and keppra loading with Neurological imaging were recommended. Chest x-ray negative for acute cardiopulmonary disease Head CT, head/ neck CTA were negative for ischemia, midline shift, acute subdural or intracranial hemorrhage. Brain MRI w/o co on 01/23/23 was negative for acute ischemia, masses or tumors or hemorrhage. Repeat CT head noted sulcal effacement within anterior frontal lobe. MRI brain w/wo co on 01/24/23 though motion compromised noted small foci of restricted diffusion in high left anterior frontal convexity. Differential include acute/subacute ischemia vs infection CRP and ESR are elevated TSH normal. Lyme screen negative LP done on 01/25/23 CSF analysis showed WBC of 291, CSF protein of 114.9 Preliminary results suggest infectious cause Possible meningitis/meningoencephalitis and small stroke CSF PCR negative for HSV Continue IV ceftriaxone 2g q12h, IV ampicillin Discussed with Neurologist. Continue IV dexamethasone for another 2 days Will follow up outstanding workup Continue Keppra Per Admitting Dr, had reported intermittent fevers at home. No fever since admission. No leukocytosis TTE reviewed. 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 8 weeks; hold while inpatient Takes prednisone 5 mg daily COPD emphysema and bronchiectasis: Per Admitting Dr, patient had cough with thick yellow sputum Pt saw Pulmonary on 11/16 and recommended Bronchoscopy. Patient canceled bronch as he did not want to drive to [facility] for it and wanted to possibly switch [place] [facility]. Pulm evaluation noted Will need pulm eval outpatient to continue workup CKD: On admission, Creatinine 1.34; baseline per [facility] records 1.2-1.4 Cr is 1 today Hypertension: BP stable Hold home antihypertensives Dyslipidemia: Does not take any medications for this Lipid panel on 11/12/22: TG 115, HDL 41, LDL 114 Disposition: PCP: Dr. Joseph CODE STATUS: Full code VTE prophylaxis: Hep sq I called and updated her I spent a total of 50 minutes coordinating, documenting and providing care for this patient excluding time spent in performance of separately billed services Admission and Anticipated Discharge Date Admission Date: January 23, 2023 Subjective Patient seen and examined He still has expressive aphasia but saying more today Was able to tell me his name when asked and followed commands better today Detailed ROS still limited due to aphasia Physical Exam Constitutional: + well hydrated; no acute distress Eyes: PERRL, conjunctivae normal, anicteric sclerae ENMT: external ear and nose normal, oropharynx normal Respiratory: normal respiratory effort, lungs clear to auscultation Cardiovascular: Rate/Rhythm: regular rate and regular rhythm S1 S2 Gastrointestinal (Abdomen): normal bowel sounds, soft, nontender, no hepatosplenomegaly Musculoskeletal: No pedal edema Neurologic: PERRL, EOMI, accommodation nl, no face palsy, no dysarthria PERRL, EOMI, no facial palsy +Aphasia Power is normal in all extremities Results & Data Results & Data Vital Signs (Past 12 Hours) Vital Signs Temp Pulse Pulse Resp BP Pulse Ox O2 Del Method 01/26/23 08:08 36.4 C L 61 18 135/76 98 Room Air 01/26/23 07:32 60 01/26/23 04:06 36.9 C 72 16 112/64 95 Room Air 01/25/23 23:45 36.9 C 72 18 112/67 95 Room Air Laboratory Results Abnormal lab results 01/26/23 01/26/23 Range/Units 05:25 05:25 WBC 12.91 H (4.8-10.8) K/ul RBC 4.35 L (4.70-6.10) M/uL Hgb 12.7 L (14.0-18.0) g/dl Hct 39.1 L (42.0-52.0) % Plt Count 406 H (130-400) K/uL Sodium 134 L (136-145) mmol/L Glucose 150 H (70-99(Fasting)) mg/dl AST 9 L (13-39) U/L ALT 6 L (7-52) U/L C-Reactive Protein 21.15 H (0-0.5) mg/dl Albumin 2.6 L (3.4-5.0) gm/dl Globulin 4.1 H (2.5-4.0) gm/dl Albumin/Globulin Ratio 0.6 L (0.9-2)
[2023-01-26] MEDS: ASPIRIN 81 MG ECTAB PO SCH (13:31)
[2023-01-26] MEDS: D5W AND NSS 1,000 ML IV SCH (18:58)
[2023-01-26] MEDS: HEPARIN SOD 5,000 UNIT/0.5 ML VIAL SQ SCH (20:11)
[2023-01-27] MEDS: AMPICILLIN 2,000 MG in 0.9 % SODIUM CHLORIDE 100 ML IV SCH ×6 (02:01→21:45)
[2023-01-27 06:58] LABS: Hematocrit (blood only) 34.7 % (42.0-52.0); Hemoglobin 11.4 g/dl (14.0-18.0); Mean Corpuscular Hemoglobin 29.6 pg (25.0-34.0); Mean Corpuscular Hgb Conc 32.9 g/dL (32.0-36.0); Mean Corpuscular Volume 90.1 fL (80.0-100.0); Mean Platelet Volume 10.2 fL (9.4-12.4); Platelet Count 391 K/uL (130-400); RDW Coefficient of Variation 13.7 % (11.5-14.5); RDW Standard Deviation 45.4 fL (36.4-46.3); Red Blood Count 3.85 M/uL (4.70-6.10); White Blood Count 14.09 K/ul (4.8-10.8)
[2023-01-27 07:49] LABS: BUN Creatinine Ratio 24.7 (10-20); Calcium 8.8 mg/dl (8.6-10.3); Chol HDL Ratio 5.2 (0-5); Creatinine Clr Calc Pharmacy 55.7 ml/min; Est GFR (African American) 85.7 ml/min; Est GFR (Non-African American) 73.9 ml/min; Potassium 4.6 mmol/L (3.5-5.1)
[2023-01-27] MEDS: ASPIRIN 81 MG ECTAB PO SCH (08:34)
[2023-01-27] MEDS: HEPARIN SOD 5,000 UNIT/0.5 ML VIAL SQ SCH ×2 (08:34→21:08)
[2023-01-27] MEDS: levETIRAcetam 500 MG in 0.9 % SODIUM CHLORIDE 100 ML IV SCH ×2 (08:34→20:34)
[2023-01-27] MEDS: cefTRIAXone SODIUM 2,000 MG in DEXTROSE 5% 50 ML IV SCH ×2 (09:37→21:07)
--- NOTE | 2023-01-27 09:57 | Hospitalist Progress Note ---
Date of Service January 27, 2023 Assessment & Plan (1) Mixed aphasia: (2) HTN (hypertension): (3) Altered mental status: (4) Rheumatoid arthritis: (5) COPD (chronic obstructive pulmonary disease): (6) Fever of unknown origin: Plan Mixed Aphasia: Altered mental status: 77-year-old male with history of rheumatoid arthritis (on Humira Q 8 weeks), spinal stenosis, HTN, pernicious anemia, COPD emphysema that presented to the ED after being noted to have altered mental status changes. Last well-known 1:05 PM 01/23/2023. Initially patient was not speaking and would not smile or follow any commands. Telestroke was paged at 3:25 PM and keppra loading with Neurological imaging were recommended. Chest x-ray negative for acute cardiopulmonary disease Head CT, head/ neck CTA were negative for ischemia, midline shift, acute subdural or intracranial hemorrhage. Brain MRI w/o co on 01/23/23 was negative for acute ischemia, masses or tumors or hemorrhage. Repeat CT head noted sulcal effacement within anterior frontal lobe. MRI brain w/wo co on 01/24/23 though motion compromised noted small foci of restricted diffusion in high left anterior frontal convexity. Differential include acute/subacute ischemia vs infection CRP and ESR are elevated TSH normal. Lyme screen negative LP done on 01/25/23 CSF analysis showed WBC of 291, CSF protein of 114.9 This suggest infectious cause Possible meningitis/meningoencephalitis and small stroke CSF PCR negative for HSV Continue IV ceftriaxone 2g q12h, IV ampicillin Neurologist recs noted Will give IV dexamethasone 4mg today, then 2mg daily from tomorrow CSF culture negative so far Will follow up outstanding workup Continue Keppra Per Admitting Dr, had reported intermittent fevers at home. No fever since admission. No leukocytosis TTE reviewed. 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 8 weeks; hold while inpatient Takes prednisone 5 mg daily. ON hold for now while on dexamethasone COPD emphysema and bronchiectasis: Per Admitting Dr, patient had cough with thick yellow sputum Pt saw Pulmonary on 11/16 and recommended Bronchoscopy. Patient canceled bronch as he did not want to drive to [facility] for it and wanted to possibly switch to [facility] [place] further evaluation. Pulm evaluation noted Will need pulm eval outpatient to continue workup CKD: On admission, Creatinine 1.34; baseline per [facility] records 1.2-1.4 Cr is 0.97 today Bradycardia Hypertension: HR has been running in 40s over the past 24h Reviewed TTE and tele Unclear etiology. Will appreciate Environmental Services Technician input BP has been normal in past 48h despite home antihypertensives on hold since admission Dyslipidemia: Does not take any medications for this Lipid panel on 11/12/22: TG 115, HDL 41, LDL 114 Disposition: PCP: Dr. Joseph CODE STATUS: Full code VTE prophylaxis: Hep sq I spent a total of 50 minutes coordinating, documenting and providing care for this patient excluding time spent in performance of separately billed services Admission and Anticipated Discharge Date Admission Date: January 23, 2023 Subjective Patient seen and examined Aphasia is improving He is able to articulate better today He is alert and oriented to person and place Denied any headache, dizziness, dysphagia/odynophagia, chest pain, cough, SOB, nausea, vomiting, abd pain Physical Exam Constitutional: + well hydrated; no acute distress Eyes: PERRL, conjunctivae normal, anicteric sclerae ENMT: external ear and nose normal, oropharynx normal Respiratory: normal respiratory effort, lungs clear to auscultation Cardiovascular: Rate/Rhythm: regular rhythm and + bradycardic S1 S2 Gastrointestinal (Abdomen): normal bowel sounds, soft, nontender, no hepatosplenomegaly Musculoskeletal: No pedal edema Neurologic: PERRL, EOMI, accommodation nl, no face palsy, no dysarthria Power is normal in all extremities Expressive aphasia much improved. Able to read out written phrases. Follows commands Genitourinary: Alejandro in situ Results & Data Results & Data Vital Signs (Past 12 Hours) Vital Signs Temp Pulse Pulse Resp BP Pulse Ox O2 Del Method 01/27/23 07:24 36.5 C 43 L 15 106/66 99 Room Air 01/27/23 07:36 46 L 01/27/23 03:00 36.3 C L 45 L 16 106/67 97 Room Air 01/26/23 23:00 36.7 C 51 L 16 124/73 95 Room Air 01/26/23 22:38 55 L Laboratory Results Abnormal lab results 01/27/23 01/27/23 Range/Units 06:04 06:04 WBC 14.09 H (4.8-10.8) K/ul RBC 3.85 L (4.70-6.10) M/uL Hgb 11.4 L (14.0-18.0) g/dl Hct 34.7 L (42.0-52.0) % BUN 24 H (6-23) mg/dl BUN/Creatinine Ratio 24.7 H (10-20) Cholesterol/HDL Ratio 5.2 H (0-5)
[2023-01-27] MEDS ORDERED: DEXAMETHASONE SOD INJ 4 MG/ML VIAL IV STA (13:15)
[2023-01-27] MEDS ORDERED: dexAMETHasone 4 MG in SYRINGE 0 ML IV ONE (13:30)
--- NOTE | 2023-01-27 16:29 | Cardiology Consultation ---
Date of Consultation January 27, 2023 Assessment & Plan (1) Sinus bradycardia: EKG tracings performed on 01/23/2023 and again on 01/24/2023 revealed sinus rhythm in the 70s to 80s with frequent premature atrial contractions. Per review of telemetry, patient has occasional premature atrial contractions, they were more frequent overnight last night and this morning. At present, sinus bradycardia with normal MA interval, normal QRS duration noted with rates in the upper 40s, 48 bpm at the time of my assessment. As noted by other providers, patient presents with symptoms concerning for infection. His CRP and ESR are high. He is immunocompromised with chronic therapy including Humira and prednisone at baseline. I do not see any evidence of AV conduction disease. No baseline previous EKG is available prior to this month in his outpatient chart. An echocardiogram was performed earlier this hospital stay without pathologic findings. Typically if the patient was to have bradycardia related to endocarditis it would present with atrial ventricular conduction issues, at present it is his sinus rate that is in the 40s with normal AV conduction. At present I recommend ongoing observation on antibiotics. No indication for pacemaker at present. History of Present Illness Attending Physician: Yanira Streeter MD History of Present Illness Mr Garcia is a 77-year-old male seen in cardiology consultation per the request of Dr. Streeter for evaluation of sinus bradycardia. Patient presented via the emergency department on 01/23/2023 after having been noted at home as having an altered mental status. He has had an ongoing aphasia. He was evaluated by telestroke on presentation and did not receive fibrinolytic therapy, but did receive antiseizure medication. The patient has had brain MRI studies, the second of which was compromised due to motion artifact, but there was a area of restricted diffusion on the high left anterior frontal convexity. A lumbar puncture has been performed.Patient currently receiving antibiotic therapy including ceftriaxone, ampicillin and is also receiving dexamethasone. Cardiology is consulted due to findings of sinus bradycardia on telemetry. Patient not able to provide subjective history at present due to his cognitive status. He notes no complaints however. He is resting comfortably. Most recent vital signs include sinus bradycardia at 48 bpm, and blood pressure of 102/65. Per review of his chart his history is notable for rheumatoid arthritis for which he receives Humira therapy every 2 weeks and is on chronic prednisone. His history is otherwise notable for bronchiectasis for which she has recently followed with pulmonary medicine and had an abnormal recent CT scan with findings of bronchiectasis as well as extensive predominantly groundglass nodularity with tree-in-bud morphology, 11/14/2022. 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 . Former smoker. Allergies Allergy/AdvReac Type Severity Reaction Status Date / Time No Known Allergies Allergy Unverified 01/23/23 15:22 Home Medications Medication Instructions Recorded Confirmed Type adalimumab 40 mg/0.8 mL 40 mg subcut Q14D 01/23/23 01/23/23 History subcutaneous pen kit (Humira Pen) albuterol sulfate 2.5 mg/3 mL 2.5 mg continuous nebulization Q4 01/23/23 01/23/23 History (0.083 %) solution for nebulization PRN Wheezing amlodipine 2.5 mg-benazepril 10 mg 1 cap PO QAM 01/23/23 01/23/23 History capsule cyanocobalamin (vitamin B-12) 1,000 mcg IM MONTHLY 01/23/23 01/23/23 History 1,000 mcg/mL injection solution prednisone 5 mg tablet 5 mg PO QAM PRN RA flares 01/23/23 01/23/23 History Patient History Medical History Fever of unknown origin HTN (hypertension) Pernicious anemia Rheumatoid arthritis Spinal stenosis Surgical History No pertinent past surgical history Social History Smoking Status: Former smoker Tobacco Type: Cigarettes Second Hand Exposure: No; Do You Dip or Chew Tobacco: No; Tobacco Cessation Education Requested by Patient: No Hx Alcohol Use: No Hx Substance Use: No Preferred Language: Uzbek Communication Ability: Unable Assembly Line Leader Required: No Beliefs That Will Affect Care: None Current Living Situation: Spouse Other Information That Helps Us Care for You: No Feels Safe at Home: Yes Safety Concerns: Feels Safe At This Time Assistive Devices: Cane, Denture - Upper, Denture - Lower, Glasses and Wheelchair Review of Systems Review of Systems: Unobtainable due to cognitive status Physical Exam Constitutional: + thin; no acute distress Eyes: PERRL, conjunctivae normal, anicteric sclerae Respiratory: normal respiratory effort, lungs clear to auscultation Cardiovascular: RRR, no murmur, no edema Gastrointestinal (Abdomen): normal bowel sounds, soft, nontender, no hepatosplenomegaly Musculoskeletal: no cyanosis or clubbing, extremities motor strength 5/5 Neurologic: Follows commands with being able to show me 2 fingers with both hands. He is conversant, but unable to tell me what his occupation has been or even able to describe for me his favorite color. Results & Data Vital Signs (Past 12 Hours) Vital Signs Temp Pulse Pulse Resp BP Pulse Ox O2 Del Method 01/27/23 15:22 47 L 01/27/23 11:30 36.5 C 48 L 16 102/65 95 Room Air 01/27/23 07:24 36.5 C 43 L 15 106/66 99 Room Air 01/27/23 07:36 46 L Laboratory Results Lipids 01/27/23 Range/Units 06:04 Triglycerides 106 (0-150) mg/dl Cholesterol 129 (0-200) mg/dl HDL Cholesterol 25 mg/dl Cholesterol/HDL Ratio 5.2 H (0-5) CBC 01/27/23 Range/Units 06:04 WBC 14.09 H (4.8-10.8) K/ul RBC 3.85 L (4.70-6.10) M/uL Hgb 11.4 L (14.0-18.0) g/dl Hct 34.7 L (42.0-52.0) % Plt Count 391 (130-400) K/uL Comprehensive Metabolic Panel 01/27/23 Range/Units 06:04 Sodium 139 (136-145) mmol/L Potassium 4.6 (3.5-5.1) mmol/L Chloride 107 (98-107) mmol/L Carbon Dioxide 28 (21-32) mmol/L BUN 24 H (6-23) mg/dl Creatinine 0.97 (0.6-1.4) mg/dl Glucose 96 (70-99(Fasting)) mg/dl Calcium 8.8 (8.6-10.3) mg/dl Intake and Output 01/27/23 01/27/23 01/27/23 06:59 14:59 22:59 Intake Total 216 / 2238 391 / 391 Output Total 350 / 875 1000 / 1250 250 / 1250 Balance -134 / 1363 -609 / -859 -250 / -859 Intake: IV 1997 391 / 391 Ampicillin 2,000 mg In 0.9 % 216 / 648 216 / 216 Sodium Chloride 100 ml @ 200 mls/hr IV Q4H [facility] Rx#:[id number] cefTRIAXone SODIUM 2,000 mg In 70 / 70 Dextrose 5% 50 ml @ 100 mls/hr IV Q12 [facility] Rx#:[id number] levETIRAcetam 500 mg In 0.9 % 105 / 105 Sodium Chloride 100 ml @ 420 mls/hr IV Q12H [facility] Rx#:[id number] Output: Urine 1000 / 1250 250 / 1250 Urine Amount (Catheter) 350 / 875 Alejandro/Indwelling 350 / 875 Other: Weight 67.4 kg Weight Measurement Method Built in [facility] Diagnostic Findings An echocardiogram was performed due to concern of strokelike symptoms on 01/24/2023: It was a technically difficult study with limited images obtained, however mild concentric left ventricular hypertrophy present, LVEF 55 to 60%, grade 1 diastolic dysfunction, mild aortic valve sclerosis without stenosis, intact interatrial septum. Blood cultures and cerebrospinal fluid cultures negative thus far
[2023-01-28] MEDS: AMPICILLIN 2,000 MG in 0.9 % SODIUM CHLORIDE 100 ML IV SCH ×6 (02:11→21:50)
[2023-01-28 06:49] LABS: Hemoglobin 12.9 g/dl (14.0-18.0); Mean Corpuscular Hemoglobin 29.7 pg (25.0-34.0); Mean Corpuscular Hgb Conc 32.3 g/dL (32.0-36.0); Mean Platelet Volume 9.9 fL (9.4-12.4); Platelet Count 386 K/uL (130-400); RDW Coefficient of Variation 13.8 % (11.5-14.5); Red Blood Count 4.35 M/uL (4.70-6.10); White Blood Count 11.15 K/ul (4.8-10.8)
[2023-01-28 06:56] LABS: BUN Creatinine Ratio 26.5 (10-20); Calcium 8.9 mg/dl (8.6-10.3); Est GFR (African American) 80.6 ml/min; Est GFR (Non-African American) 69.6 ml/min; Magnesium 1.9 mg/dl (1.7-2.4); Phosphorus 3.4 mg/dl (2.5-4.9); Potassium 4.2 mmol/L (3.5-5.1)
[2023-01-28] MEDS: levETIRAcetam 500 MG in 0.9 % SODIUM CHLORIDE 100 ML IV SCH ×2 (07:30→19:31)
--- NOTE | 2023-01-28 08:01 | Electrocardiogram Report ---
Test Reason : Blood Pressure : / mmHG Vent. Rate : 080 BPM Atrial Rate : 080 BPM P-R Int : 136 ms QRS Dur : 080 ms QT Int : 362 ms P-R-T Axes : -13 -35 005 degrees QTc Int : 417 ms Sinus rhythm with Premature atrial complexes Left axis deviation Septal infarct , age undetermined Abnormal ECG When compared with ECG of 30-DEC-2022 14:16, Premature ventricular complexes are no longer Present Premature atrial complexes are now Present Confirmed by Jhon Dominguez ([id number] on 01/28/2023 8:01:04 AM Referred By: Confirmed By:Jhon Dominguez
[2023-01-28] MEDS: dexAMETHasone 1 MG TAB PO SCH (08:54)
[2023-01-28] MEDS: ASPIRIN 81 MG ECTAB PO SCH (08:54)
[2023-01-28] MEDS: HEPARIN SOD 5,000 UNIT/0.5 ML VIAL SQ SCH ×2 (08:55→21:12)
[2023-01-28] MEDS: cefTRIAXone SODIUM 2,000 MG in DEXTROSE 5% 50 ML IV SCH ×2 (08:57→21:06)
--- NOTE | 2023-01-28 10:38 | Hospitalist Progress Note ---
Date of Service January 28, 2023 Assessment & Plan (1) Mixed aphasia: (2) HTN (hypertension): (3) Altered mental status: (4) Rheumatoid arthritis: (5) COPD (chronic obstructive pulmonary disease): (6) Fever of unknown origin: Plan Mixed Aphasia: Altered mental status: 77-year-old male with history of rheumatoid arthritis (on Humira Q 8 weeks), spinal stenosis, HTN, pernicious anemia, COPD emphysema that presented to the ED after being noted to have altered mental status changes. Last well-known 1:05 PM 01/23/2023. Initially patient was not speaking and would not smile or follow any commands. Telestroke was paged at 3:25 PM and keppra loading with Neurological imaging were recommended. Chest x-ray negative for acute cardiopulmonary disease Head CT, head/ neck CTA were negative for ischemia, midline shift, acute subdural or intracranial hemorrhage. Brain MRI w/o co on 01/23/23 was negative for acute ischemia, masses or tumors or hemorrhage. Repeat CT head noted sulcal effacement within anterior frontal lobe. MRI brain w/wo co on 01/24/23 though motion compromised noted small foci of restricted diffusion in high left anterior frontal convexity. Differential include acute/subacute ischemia vs infection CRP and ESR are elevated TSH normal. Lyme screen negative LP done on 01/25/23 CSF analysis showed WBC of 291, CSF protein of 114.9 This suggest infectious cause Possible meningitis/meningoencephalitis and small stroke CSF PCR negative for HSV Continue IV ceftriaxone 2g q12h, IV ampicillin Neurologist recs noted Continue IV dexamethasone CSF culture negative so far Will follow up outstanding workup Continue Keppra Per Admitting Dr, had reported intermittent fevers at home. No fever since admission. No leukocytosis TTE reviewed. EF 55-60%, mild conc LVH, G 1 DD, no evidence of ASD or interatrial shunt ASA 81mg daily started per discussion with Neurology PT/OT/[employer] evaluation noted Rheumatoid arthritis: Chronic stable On Humira q. 8 weeks; hold while inpatient Takes prednisone 5 mg daily. ON hold for now while on dexamethasone COPD emphysema and bronchiectasis: Per Admitting Dr, patient had cough with thick yellow sputum Pt saw Pulmonary on 11/16 and recommended Bronchoscopy. Patient canceled bronch as he did not want to drive to [facility] for it and wanted to possibly switch to [facility] for further evaluation. Pulm evaluation noted Will need pulm eval outpatient to continue workup CKD: On admission, Creatinine 1.34; baseline per [facility] records 1.2-1.4 Cr is 1.02 today Bradycardia Hypertension: HR has been running in 40s over the past 24h Reviewed TTE and tele Unclear etiology. Cardiology evaluation noted BP remains stable Dyslipidemia: Does not take any medications for this Lipid panel on 11/12/22: TG 115, HDL 41, LDL 114 Disposition: PCP: Dr. Joseph CODE STATUS: Full code VTE prophylaxis: Hep sq I spent a total of 45 minutes coordinating, documenting and providing care for this patient excluding time spent in performance of separately billed services Admission and Anticipated Discharge Date Admission Date: January 23, 2023 Subjective Patient seen and examined Expressive aphasia is almost resolved. No receptive aphasia today Able to hold conversation today He is alert and oriented to person and place Denied any headache, dizziness, dysphagia/odynophagia, chest pain, cough, SOB, nausea, vomiting, abd pain Denied any complaints on ROS Physical Exam Constitutional: + well hydrated; no acute distress Eyes: PERRL, conjunctivae normal, anicteric sclerae ENMT: external ear and nose normal, oropharynx normal Respiratory: normal respiratory effort, lungs clear to auscultation Cardiovascular: Rate/Rhythm: regular rhythm and + bradycardic S1 S2 Gastrointestinal (Abdomen): normal bowel sounds, soft, nontender, no hepatosplenomegaly Musculoskeletal: No pedal edema Neurologic: PERRL, EOMI, accommodation nl, no face palsy, no dysarthria No receptive aphasia. Expressive aphasia resolving Power is normal in all extremities Results & Data Results & Data Vital Signs (Past 12 Hours) Vital Signs Temp Pulse Pulse Resp BP Pulse Ox O2 Del Method 01/28/23 07:43 36.6 C 54 L 18 127/68 97 Room Air 01/28/23 03:00 36.5 C 41 L 20 129/71 97 Room Air 01/27/23 23:32 46 L 01/27/23 23:00 36.6 C 51 L 20 115/64 97 Room Air Laboratory Results Abnormal lab results 01/28/23 01/28/23 Range/Units 06:00 06:00 WBC 11.15 H (4.8-10.8) K/ul RBC 4.35 L (4.70-6.10) M/uL Hgb 12.9 L (14.0-18.0) g/dl Hct 40.0 L (42.0-52.0) % RDW Std Deviation 47.0 H (36.4-46.3) fL BUN 27 H (6-23) mg/dl BUN/Creatinine Ratio 26.5 H (10-20)
--- NOTE | 2023-01-28 12:13 | Cardiology Progress Note ---
Date of Service January 28, 2023 Assessment & Plan (1) Sinus bradycardia: Plan: EKG tracings performed on 01/23/2023 and again on 01/24/2023 revealed sinus rhythm in the 70s to 80s with frequent premature atrial contractions. Per review of telemetry, patient has occasional premature atrial contractions, they were more frequent overnight last night and this morning. At present, sinus bradycardia with normal CO interval, normal QRS duration noted with rates in the upper 40s, 48 bpm at the time of my assessment. As noted by other providers, patient presents with symptoms concerning for infection. His CRP and ESR are high. He is immunocompromised with chronic therapy including Humira and prednisone at baseline. I do not see any evidence of AV conduction disease. No baseline previous EKG is available prior to this month in his outpatient chart. An echocardiogram was performed earlier this hospital stay without pathologic findings. Typically if the patient was to have bradycardia related to endocarditis it would present with atrial ventricular con duction issues, at present it is his sinus rate that is in the 40s with normal AV conduction. At present I recommend ongoing observation on antibiotics. No indication for pacemaker at present. Plan 01/28/2023. Assessment and plan as above Still relatively bradycardic but no profound bradycardia or pauses. Question secondary to increased intracranial pressure of acute present ending illness Patient does note possible history of sleep apnea We will order nocturnal oximetry as part of evaluation No indications for further cardiac intervention at this time would continue telemetry Admission and Anticipated Discharge Date Admission Date: January 23, 2023 Subjective Patient seen and examined, chart, medications, telemetry reviewed Feels neurologic status has improved. Being treated with antibiotics as well as corticosteroid No chest pains or shortness of breath no dizziness or lightheadedness Telemetry continues to demonstrate sinus bradycardia with brief pauses in early a.m. hours longest 3.2 seconds. No AV conduction disease Review of Systems Review of Systems: All systems reviewed & are unremarkable except as noted in Subjective Physical Exam Constitutional: + thin; no acute distress Eyes: PERRL, conjunctivae normal, anicteric sclerae Respiratory: normal respiratory effort, lungs clear to auscultation Cardiovascular: RRR, no murmur, no edema Rate/Rhythm: + bradycardic Gastrointestinal (Abdomen): normal bowel sounds, soft, nontender, no hepatosplenomegaly Musculoskeletal: no cyanosis or clubbing, extremities motor strength 5/5 Results & Data Vital Signs (Past 12 Hours) Vital Signs Temp Pulse Resp BP Pulse Ox O2 Del Method 01/28/23 07:43 36.6 C 54 L 18 127/68 97 Room Air 01/28/23 03:00 36.5 C 41 L 20 129/71 97 Room Air
--- NOTE | 2023-01-28 22:48 | Electrocardiogram Report ---
Test Reason : Blood Pressure : / mmHG Vent. Rate : 053 BPM Atrial Rate : 053 BPM P-R Int : 142 ms QRS Dur : 080 ms QT Int : 438 ms P-R-T Axes : 024 -32 -04 degrees QTc Int : 410 ms Poor data quality, interpretation may be adversely affected Sinus bradycardia with Premature atrial complexes Left axis deviation Anteroseptal infarct (cited on or before 23-JAN-2023) Abnormal ECG When compared with ECG of 23-JAN-2023 15:08, Vent. rate has decreased BY 27 BPM Questionable change in initial forces of Anterior leads Confirmed by Jhon Dominguez ([id number]) on 01/28/2023 10:47:51 PM Referred By: REFERRED SELF Confirmed By:Jhon Dominguez
[2023-01-29] MEDS: AMPICILLIN 2,000 MG in 0.9 % SODIUM CHLORIDE 100 ML IV SCH ×6 (02:23→22:32)
--- OUTSIDE RECORDS SUMMARY | 2023-01-29 04:59 | External Medical Summary | Summary of Care ---
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 Every 2 - 3 days 0 Active Benzonatate 100 MG Oral Capsule (Iain Silva)Indicatio ns:Cough Take by mouth 1 Capsule 2 times a day as needed for Cough. Do not cut, crush, or chew. 50 Capsule 2 2 Active Fluticasone Propionate HFA 44 MCG/ACT Inhalation Aerosol (Flovent HFA)Indications: Bronchiectasis (HCC) Inhale by mouth 1 Puff in the morning AND 1 Puff before bedtime. 10.6 g 5 2 Active predniSONE 5 MG Oral Tablet (Deltasone)Indic ations:H/O rheumatoid arthritis Take 1 Tablet (5 mg) by mouth in the morning. 30 Tablet 5 2 Active Benazepril HCl 5 MG Oral Tablet (Lotensin)Indica tions: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) Take 1 Tablet by mouth in the morning. 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 90 Capsule 1 3 Active Cyanocobalamin 1000 MCG/ML Injection Solution (Cyanocobalamin) Indications:Pern icious anemia inject 1ml into a large muscle every month 1 mL 4 3 Active Humira Pen 40 MG/0.4ML Subcutaneous Pen-injector Kit (Adalimumab) INJECT 40 MG (0.4 ML) UNDER THE SKIN EVERY 14 DAYS 2 Each 5 3 Active Nebulizer/Tubing /Mouthpiece KitIndications:B ronchiectasis with acute lower respiratory infection (HCC) Use as directed Bronchiectasis J47.9 1 Kit 5 3 Active Full Kit Nebulizer SetIndications:B ronchiectasis with acute lower respiratory infection (HCC) Use as directed J47.9 1 Each 0 3 Active Albuterol Sulfate (2.5 MG/3ML) 0.083% Inhalation Nebulization Solution (Proventil) Inhale 1 Vial via nebulizer every 4 hours as needed for Wheezing. , use in place of rescue inhaler. J47.9 360 mL 11 3 Active Citalopram Hydrobromide 20 MG Oral Tablet (CeleXA)Indicati ons:Moderate major depression (HCC) 0.5 tablet by mouth once a day for 2 weeks then 1 tablet daily by mouth after that 30 Tablet 3 12/07/19 23 Discontinued Hospital, Clinic, or Other Facility Administered Medication Ordered Dose Route Frequency Start Date End Date Status Albuterol Sulfate (Proventil) (2.5 MG/3ML) 0.083% inhalation solution 2.5 mgIndications:Rosmery looney emphysema (HCC) 2.5 mg NEBULIZER PRN 11/23/2022 11/23/2023 Acti ve Albuterol Sulfate (Proventil) (5 MG/ML) 0.5% *conc* inhalation solution 2.5 mgIndications:Centrilob ular emphysema (HCC) 2.5 mg NEBULIZER PRN 11/23/2022 11/23/2023 Acti ve Lidocaine (PF) 2 % (PF) inj 20 mgIndications:Trochante chaparro bursitis of right hip 20 mg IX ONCE 12/06/2022 12/06/2022 Ended methylPREDNISolone acetate (Depo-Medrol) 40 MG/ML inj 40 mgIndications:Trochante chaparro bursitis of right hip 40 mg IX ONCE 12/06/2022 12/06/2022 Ended documented as of this encounter (statuses as of 12/06/2022) Active Problems Problem Noted Date Thoracic aortic aneurysm without rupture 11/07/2022 Ruptured extensor tendon of hand or wris t, left, initial encounter 07/13/2022 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) 11/22/2020 Thyroid nodule 08/10/2019 Mixed hyperlipidemia 12/17/2018 Rheumatoid arthritis involvi ng multiple sites with positive rheumatoid factor 06/11/2018 Primary osteoarthritis of right hip 11/24 Generalized osteoarthritis 09/04/2017 Bunion, left foot 09/04/2017 Benign hypertension with CKD (chronic ki dney disease) stage III 07/30/2017 Bronchiectasis 12/08/2013 Thoracic aortic aneurysm 12/08/2013 Pernicious anemia 08/24/2010 Encounter for therapeutic drug monitorin g 07/27/2010 Overview: ICD-10 update of inactive term documented as of this encounter (statuses as of 12/06/2022) Resolved Problems Problem Noted Date Resolved Date Secondary hyperparathyroidism 08/10/2019 History of rheumatoid arthritis 09/04/2017 08/20/2018 History of rheumatoid arthritis 01/06/2016 07/27/2016 Kidney disease, chronic, stage III (GFR 30-59 ml /min) 08/09/2014 07/30/2017 Overview: Per CKD protocol #1 HTN, goal below 140/90 8 Kidney disease, chronic, stage III (GFR 30-59 ml /min) 03/24/2012 documented as of this encounter (statuses as of 12/06/2022) Immunizations Name Administration Dates Next Due COVID-19 mRNA, LNP-s, No Pre serve, 2-Dose Series (Poppin) 03/01/2021,08/03/2020,07/13/2020 Pneumococcal Conjugate Vacc, 13 Valent (Prevnar) 07/13/2015 Pneumococcal Polysaccharide PPV23 (Pneumovax) 06/08/2013,03/19/2013(Deferred: Patient Refused - not interested) Seasonal Influenza, Quadriva lent Hd (Fluzone Hd) 05/09/2022,05/02/2021 Seasonal Influenza, Quadriva lent, No Preserve, 6 Mons & Above, IM 05/22/2018 Seasonal Influenza, Quadriva lent, No Preserve, Adjuvanted, 65+ Yrs, IM 03/15/2020 Seasonal Influenza, Quadriva lent, No Preserve, IM 05/04/2016 Seasonal Influenza, Split, I IV3, With Preserve, Inj 06/05/2017,06/12/2015,06/01/2014,06/08,03/19/2013(Deferred: Patient Refused - not interested) Seasonal Influenza, Trivalen t, Adjuvanted, 65+ yrs 03/24/2019 TDAP (age 10 and older)(Boostrix) 01/10/2015 Varicella Zoster Vaccine (Adult) 01/10/2015 Zoster Vaccine Recombinant (Shingrix) 10/31/2020 documented as of this encounter Social History Tobacco Use Types Packs/Day Years Used Date Smoking Tobacco: Former Cigarettes 2 35 Q uit: 06/25/1990 Smokeless Tobacco: Never Tobacco Cessation:Counseling Given: Not Answered Alcohol Use Standard Drinks/Week Comments Not Currently 0 (1 standard drink = 0.6 oz pur e alcohol) occassional Food Insecurity Answer Date Recorded Within the past 12 months, y ou worried that your food would run out before you got money to buy more. Never true 11/07/2022 Within the past 12 months, t he food you bought just didn't last and you didn't have money to get more. Never true 11/07/2022 Sex Assigned at Date Recorded Male 12/17/2018 2:08 PM E DT Job Start Date Occupation Industry Not on file Not on file Not on file documented as of this encounter Last Filed Vital Signs Vital Sign Reading Time Taken Comments Blood Pressure 118/70 12/06/2022 1:47 PM EDT Pulse - - Temperature 37.2 C (98.9 F) 12/06/2022 1:47 PM ED T Respiratory Rate - - Oxygen Saturation - - Inhaled Oxygen Concentration - - Weight 68 kg (150 lb) 12/06/2022 1:47 PM EDT Height - - Body Mass Index 23.49 11/23/2022 12:02 PM EDT documented in this encounter Progress Notes * Carlos Alberto Matthews MD - 12/06/2022 1:58 PM EDTAssociated Order(s): LG Joint Inj/Arthro: R greater trochanteric bursa Images from the original note were not included. 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 He has right trochanteric bursitis and discussed injection, he agreed and procedure note is below. If this fails to help his pain will get him set up with Radiology for right hip joint injection. Plan: 1. Continue Humira every other week 2. See procedure note below for injection 3. Contact with any issues 4. Return to clinic in 6 months Rheumatology Synopsis: Disease activity: Controlled Patient History History of Present Illness HPI:77 year old male presented to rheumatology clinic for Rheum Follow Up (Recheck RA) He is noting more right hip pain. His PCP did x rays - he has advanced OA of the right hip and medial right knee. He has continued to lose weight. He lost 10 lbs since last visit. He reports that theright hip pain is lateral hip pain - he can pinpoint the pain at times. He was unsure Humira was helping his arthritis OA is stopped it and noted that his RA pains worsen so he resumed it. He has been back on for 1 month. He reports he has also been evaluated by pulmonology and a CT scan and getting some additional lab studies. States he might have an infectious inflammatory process in his lungs.RA has a diagnosis of bronchiectasis. Also has emphysema. ROS: Review of Systems was asked and the following other significant symptoms are present: Chronic shortness of breath and cough from bronchiectasis. Reports fatigue and weight loss. Right lateral hip pain Subjective Patient's past history, medications, and allergies were reviewed. Medications: Current Outpatient Medications Medication Instructions Albuterol Sulfate (PROVENTIL) 2.5 mg, Nebulizer, Q4H PRN, , use in place of rescue inhaler. J47.9 amLODIPine Besy-Benazepril HCl 2.5-10 MG Oral Capsule (Lotrel) 1 Capsule, Oral, Daily(AM) benazepril (LOTENSIN) 5 mg, Oral, Daily(AM) Benzonatate (TESSALON PERLES) 100 mg, Oral, BID PRN, Do not cut, crush, or chew. Cyanocobalamin 1000 MCG/ML Injection Solution (Cyanocobalamin) inject 1ml into a large muscle every month Fluticasone Propionate HFA 44 MCG/ACT Inhalation Aerosol (Flovent HFA) 1 Puff, Inhalation, BID(AM/PM) Full Kit Nebulizer Set Use as directed J47.9 Humira Pen 40 MG/0.4ML Subcutaneous Pen-injector Kit (Adalimumab) INJECT 40 MG (0.4 ML) UNDER THE SKIN EVERY 14 DAYS Nebulizer/Tubing/Mouthpiece Kit Use as directed Bronchiectasis J47.9 predniSONE (DELTASONE) 5 mg, Oral, Daily(AM) Vitamin D3 1,000 Units, Oral, Every 2 - 3 days Objective Physical Exam BP 118/70 | Temp 37.2 C (98.9 F) (Infrared ) | Wt 68 kg (150 lb) | BMI 23.49 kg/m | BSA 1.79 m Constitutional: no acute distress, (+) thin HEENT: normal: normocephalic, atraumatic; no masses, tenderness, or adenopathy Eyes: sclera and conjunctiva normal Neck: supple, normal range of motion CV: normal rate and rhythm, no murmur, gallops or rub Chest: Coarse breath sounds noted throughout Abdomen: normal: soft, bowel sounds normal, no masses, tenderness or organomegaly MSK/Joint exam (Homunculus) MSK Exam findings: Homunculus exam Studies: Labs and other studies reviewed with pertinent findings noted below: Disease Treatment Response CDAI Scoring - Patient Global: 50 mm Provider Global: 20 mm Tender: 1 Swollen: 0 CDAI: 7 CDAI (Clinical Disease Activity Index) [facility] Outcomes measures: Serial CDAI: - Serial CDAI: - Yes - Remission: - No - low disease activity - Disease Activity: Improved On csDMARD: No On Biologic DMARD: Yes Vaccination status: COVID: Vaccine and/or Health maintenance status Incomplete Influenza:Vaccine complete for this season Pneumococcal:Vaccine Series complete Zoster:Vaccine and/or Health Maintainance Incomplete Last Hepatitis and TB testing: Hepatitis B: Tested, result reviewed Hepatitis C: Not Tested, results not available PPD or TB-Gold: Not Tested, results not available Lab Results Component Value Date HEPB <3.5 11/12/2022 HEPB Negative 11/12/2022 HEPB NOT immune to Hepatitis B Virus 11/12/2022 No results found for: TB GOLD AG NIL, TB GOLD MITOGEN NIL, PPD INDURATION - Ignacio Garcia is a 77 year old male patient. ICD-10-CM 1. Rheumatoid arthritis involving multiple sites with positive rheumatoid factor (HCC) M05.79 2. 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 Encounter for therapeutic drug monitoring Z51.81 4. Trochanteric bursitis of right hip M70.61 Past Medical History: Diagnosis Date Bronchiectasis (HCC) 12/08/2013 Encounter for long-term (current) use of other medications 07/27/2010 History of rheumatoid arthritis 01/06/2016 HTN, goal below 140/90 Pernicious anemia 08/24/2010 Thyroid nodule 08/10/2019 Blood pressure 118/70, temperature 37.2 C (98.9 F), temperature source Infrared , weight 68 kg (150 lb). LG Joint Inj/Arthro: R greater trochanteric bursa on 12/06/2022 2:13 PM Indications: pain Details: 25 G needle, lateral approach Medications: (40mg of depomedrol and 1 ml of 2% lidocaine) Outcome: tolerated well, no immediate complications Procedure, treatment alternatives, risks and benefits explained, specific risks discussed. Consent was given by the patient. Immediately prior to procedure a time out was called to verify the correctpatient, procedure, equipment, support manager and site/side marked as required. Patient was prepped and draped in the usual sterile fashion. Carlos Alberto Matthews MD 12/06/2022 documented in this encounter Nursing Notes * Fani Hickman LPN - 12/06/2022 1:47 PM EDT Chief Complaint Patient presents with Rheum Follow Up Recheck RA documented in this encounter Plan of Treatment Upcoming Encounters Date Type Specialty Care Team Description 12/19/2022 Office Visit Orthopedics Carlos Alberto Rausch DO [address] [place] [address] 01/17/2023 Hospital Encounter Surgery Noble Cervantes MD [address] [place] [address] 01/17/2023 Surgery Surgery Noble Cervantes MD [address] [place] [address] BRONCHOSCOPY DIAGNOSTIC WITH OR WITHOUT WASHING 05/29/2023 Office Visit Rheumatology Carlos Alberto Matthews MD [address] [place] [address] 06/13/2023 Office Visit Internal Medicine William Joseph MD [address] [place] [address] Scheduled Procedures Name Priority Associated Diagnoses Date/Ti me BRONCHOSCOPY DIAGNOSTIC WITH OR WITHOUT WASHING Cough, unspecified type 01/17/2023 7:30 AM EDT Health Maintenance Due Date Last Done Comments FOBT ANNUALLY,AGES 18-90 03/22/2017 03/22/2016, 09/26 Zoster Vaccines (2 of 2) 12/26/2020 10/31/2020, 12/25 COVID-19 Vaccine (4 - Booster for Pfizer series) 04/26/2021 03/01/2021, 08/03/2020, 07/13/2020 Depression, Most Recent Score >= 10 (will fire each visit until score < 10) 11/08/2022 11/07/2022 Influenza Vaccine (FLU shot) (#1) 2023 05/09/2022, 05/02/2021, 03/15/2020, Additional history exists GFR 05/14/2023 11/12/2022, 05/0 08/2022, 12/06/2021, Additional history exists Albumin/Creatinine Ratio 11/13/2023 023, 03/16/2021, 08/03/2016, Additional history exists CKD HGB USE SMARTSET 96177 11/13/202311/12, 11/12/2022, 09/27/2022, Additional history exists CKD PHOS USE SMARTSET 84804 11/13/202310/25, 03/16/2021, 03/15/2020, Additional history exists DTaP,Tdap,and Td Vaccines (2 - Td or Tdap) 01/10/2025 01/10/2015 Pneumococcal Vaccine: 65+ Years Completed 07/13/2015, 06/08/2013 Hepatitis C Screening Completed 03/03/2019 GARDASIL-HPV IMMUNIZATION SERIES Aged Out No longer eligible based on patient's age to complete this topic Hepatitis B Aged Out No longer eligi ble based on patient's age to complete this topic MENINGOCOCCAL (MENACTRA/MENVEO) Aged Out No longer eligible based on patient's age to complete this topic documented as of this encounter Medical Devices Not on filedocumented as of this encounter Procedures Procedure Name Priority Date/Time Associated Diagnosis Comments [place] ARTHROCENTESIS ASPIR&/INJ MAJOR JT/BURSA W/O US Routine 12/06/2022 2:13 PM EDT Trochanteric bursitis of right hip documented in this encounter Results * AZ ARTHROCENTESIS ASPIR&/INJ MAJOR JT/BURSA W/O US (12/06/2022 2:13 PM EDT) Narrative Carlos Alberto Matthews MD - 12/06/2022 2:13 PM EDT Carlos Alberto Matthews MD 12/06/2022 2:28 PM LG Joint Inj/Arthro: R greater trochanteric bursa on 12/06/2022 2:13 PM Indications: pain Details: 25 G needle, lateral approach Medications: (40mg of depomedrol and 1 ml of 2% lidocaine) Outcome: tolerated well, no immediate complications Procedure, treatment alternatives, risks and benefits explained, specific risks discussed. Consent was given by the patient. Immediately prior to procedure a time out was called to verify the correct patient, procedure, equipment, support manager and site/side marked as required. Patient was prepped and draped in the usual sterile fashion. 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, or unspecified Encounter for therapeutic drug monitoring Trochanteric bursitis of right hip Enthesopathy of hip region Cough, unspecified type documented in this encounter Administered Medications Inactive Administered Medications - up to 3 most recent administrations Medication Order MAR Action Action Date Dose Rate Site Lidocaine (PF) 2 % (PF) inj 20 mg 20 mg, Intra-Articular, ONCE, On Lacie 12/06/22 at 1445, For 1 dose Given 12/06/2022 2:13 PM EDT 20 mg Hip R ight methylPREDNISolone acetate (Depo-Medrol) 40 MG/ML inj 40 mg 40 mg, Intra-Articular, ONCE, On [place]ie 12/06/22 at 1445, For 1 dose Given 12/06/2022 2:13 PM EDT 40 mg Hip R ight documented in this encounter Care Teams 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
--- OUTSIDE RECORDS SUMMARY | 2023-01-29 04:59 | External Medical Summary | Summary of Care ---
Author Name Unknown Organization [facility] Address [address] [place] [address] Phone [phone] Care Team Providers Care Warehouse Specialist Name Role Phone William Joseph MD Primary Care Provider + Reason for Visit * Reason Onset Date Comments Advice 01/02/2023 Emergency Department Follow-Up 01/02/2023 Encounter Details Date Type Department Care Team Description 01/02/2023 Telephone General Internal Medicine [facility] [address] [place] [address] William Joseph MD [address] [place] [address] Advice; Emergency Department Follow-Up Allergies No known active allergiesdocumented as of this encounter (statuses as of 01/10/2023) Medications Medication Sig Dispensed Refills Start Date End Date Status Cholecalciferol (VITAMIN D3) 50 MCG (1999) Tablet Take 0.5 Tablets by mouth. Every 2 - 3 days 0 Active Benzonatate 100 MG Oral Capsule (Tessalon Perles)Indications :Cough Take by mouth 1 Capsule 2 times a day as needed for Cough. Do not cut, crush, or chew. 50 Capsule 2 09/27/2021 Active Fluticasone Propionate HFA 44 MCG/ACT Inhalation Aerosol (Flovent HFA)Indications:Br onchiectasis (HCC) Inhale by mouth 1 Puff in the morning AND 1 Puff before bedtime. 10.6 g 5 02/13/2022 Active predniSONE 5 MG Oral Tablet (Deltasone)Indicat ions:H/O rheumatoid arthritis Take 1 Tablet (5 mg) by mouth in the morning. 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 90 Capsule 1 06/11/2022 Active Cyanocobalamin 1000 MCG/ML Injection Solution (Cyanocobalamin)In dications:Pernicio us anemia inject 1ml into a large muscle every month 1 mL 4 10/18/2022 Active Humira Pen 40 MG/0.4ML Subcutaneous Pen-injector Kit (Adalimumab) INJECT 40 MG (0.4 ML) UNDER THE SKIN EVERY 14 DAYS 2 Each 5 11/13/2022 Active Nebulizer/Tubing/M outhpiece KitIndications:Bro nchiectasis with acute lower respiratory infection (HCC) Use as directed Bronchiectasis J47.9 1 Kit 5 11/23/2022 Active Full Kit Nebulizer SetIndications:Bro nchiectasis with acute lower respiratory infection (HCC) Use as directed J47.9 1 Each 0 11/23/2022 Active Albuterol Sulfate (2.5 MG/3ML) 0.083% Inhalation Nebulization Solution (Proventil) Inhale 1 Vial via nebulizer every 4 hours as needed for Wheezing. , use in place of rescue inhaler. J47.9 360 mL 11 11/23/2022 Active Hospital, Clinic, or Other Facility Administered Medication Ordered Dose Route Frequency Start Date End Date Status Albuterol Sulfate (Proventil) (2.5 MG/3ML) 0.083% inhalation solution 2.5 mgIndications:Centrilob ular emphysema (HCC) 2.5 mg NEBULIZER PRN 11/23/2022 11/23/2023 Acti ve Albuterol Sulfate (Proventil) (5 MG/ML) 0.5% *conc* inhalation solution 2.5 mgIndications:Centrilob ular emphysema (HCC) 2.5 mg NEBULIZER PRN 11/23/2022 11/23/2023 Acti ve documented as of this encounter (statuses as of 01/10/2023) Active Problems Problem Noted Date Thoracic aortic [...] as of this encounter (statuses as of 01/10/2023) Resolved Problems Problem Noted Date Resolved Date Secondary hyperparathyroidism 08/10/2019 History of rheumatoid arthritis 09/04/2017 08/20/2018 History of rheumatoid arthritis 01/06/2016 07/27/2016 Kidney disease, chronic, stage III (GFR 30-59 ml /min) 08/09/2014 07/30/2017 Overview: Per CKD protocol #1 HTN, goal below 140/90 8 Kidney disease, chronic, stage III (GFR 30-59 ml /min) 03/24/2012 documented as of this encounter (statuses as of 01/10/2023) Immunizations Name Administration Dates Next Due COVID-19 mRNA, LNP-s, No Pre serve, 2-Dose Series ([employer]) 03/01/2021,08/03/2020,07/13/2020 Pneumococcal Conjugate Vacc, 13 Valent (Prevnar) [...] 35 Q uit: 06/25/1990 Smokeless Tobacco: Never Alcohol Use Standard Drinks/Week Comments Not Currently [...] on file documented as of this encounter Miscellaneous Notes * Telephone Encounter - PAULA Gomes - 01/10/2023 9:25 AM EDT LMOM re: ED f/u 01/10 JAT * Telephone Encounter - William Joseph MD - 01/09/2023 4:33 PM EDT Pls schedule ER follow up to review labs and assess status. * Telephone Encounter - Oksana Barksdale LPN - 01/09/2023 3:52 PM EDT Provider to address: William Joseph MD Reason for Call: Advice Contact: Telephone Call Contact Type: Follow-up Outcome: called and spoke with pt. Pt states that his biggest concern is that he was supposed to bescheduled for a 3 month return after his October appt and he is not scheduled until May - working on getting pt scheduled in January Also - pt was concerned about labs - when he had labs done in October - he was concerned about his ESR& the elevated platelet count. Pt was in the ER for a fall and had labs done. Is wondering if the labs that were done in the ER look any better Total Time including non face to face (minutes): 15 * Telephone Encounter - William Joseph MD - 01/02/2023 6:21 PM EDT Please call patient, to assess needs/concerns * Telephone Encounter - PAULA Domínguez - 01/02/2023 2:05 PM EDT Pt is calling and asking if Dr. Joseph could call him. He states that there are some important changes since he last saw him. When it is convenient for Dr. Joseph. He did say he myg Dr. Joseph. Please call him back. documented in this encounter Plan of Treatment Upcoming Encounters Date Type Specialty Care Team Description 02/13/2023 Office Visit Internal Medicine William Joseph MD [address] [facility] [address] [place] [address] 05/29/2023 Office Visit Rheumatology Carlos Alberto Matthews MD [address] [facility] [place] [address] 06/13/2023 Office Visit Internal Medicine [facility], William Villanueva MD [address] [place] [address] Health Maintenance Due Date Last Done Comments FOBT ANNUALLY,AGES 18-90 03/22/2017 03/22/2016, 09/26 Zoster Vaccines (2 of 2) 12/26/2020 10/31/2020, 12/25 COVID-19 Vaccine (4 - Pfizer risk series) 04/26/2021 03/01/2021, 08/03/2020, 07/13/2020 Depression, Most Recent Score >= 10 (will fire each visit until score < 10) 11/08/2022 11/07/2022 Influenza Vaccine (FLU shot) (#1) 2023 05/09/2022, 05/02/2021, 03/15/2020, Additional history exists GFR 05/14/2023 11/12/2022, 08/2022, 12/06/2021, Additional history exists Albumin/Creatinine Ratio 11/13/2023 023, 03/16/2021, 08/03/2016, Additional history exists CKD HGB USE SMARTSET 23618 11/13/202311/12, 11/12/2022, 09/27/2022, Additional history exists CKD PHOS USE SMARTSET 49253 11/13/202310/25, 03/16/2021, 03/15/2020, Additional history exists DTaP,Tdap,and [...] Not on filedocumented as of this encounter Care Teams Warehouse Specialist Relationship Specialty Start Date End Date William Joseph MD [address] [place] [address] PCP - General Internal Medicine 03/18/12 documented as of this encounter
--- OUTSIDE RECORDS SUMMARY | 2023-01-29 04:59 | External Medical Summary | Summary of Care ---
Author Name Unknown Organization [facility] Address [address] [place] [address] Phone [phone] Care Team Providers Care Critical Care Clinical Nurse Specialist Name Role Phone William Joseph MD Primary Care Provider + Reason for Referral * Evaluate & Treat - Unlimited Visits (Within 10 days (routine)) - Pending Review Specialty Diagnoses / Procedures Referred By Contheidi mitchell Referred To Contact Pulmonary Diseases / Pulmonary Diagnoses Axillary lymphadenopathy Abnormal chest CT William Joseph MD [address] [place] [address] Nilton Roque MD [address] [facility] [address] [place] [address] Referral ID Status Reason Start Date Expiration Date Visits Requested Visits Authorized [id number] Pending Review Specialty Services Required 01/23/[phone] Question Answer Referral Priority Within 10 days (routine) Primary Reason for Referral? Other Comments Abnormal ct: 1. Extensive predominantly ground-glass nodularity with tree-in-bud morphology most pronounced lower lungs. Likely inflammatory/infectious. Correlate for atypical infections. Minimal associated bronchiectasis. Short-term follow-up necessary to assure clearing 2. Some additional more solid small lung nodularity which could also be inflammatory/infectious however close follow-up CT in 3 months suggested to assure stability/resolution. 3. Advanced emphysema. 4. Bilateral slightly bulky axillary lymphadenopathy, nonspecific. Correlate clinically. 5. See above for other details. 6. Heterogeneous enlarged right lobe of thyroid with suspected multiple internal nodules. Consider future thyroid ultrasound. * Evaluate & Treat - Unlimited Visits (Within 10 days (routine)) - Pending Review Specialty Diagnoses / Procedures Referred By Suha mitchell Referred To Contact HOME CARE / Home Care Diagnoses Closed fracture of left hand, initial encounter Rheumatoid arthritis involving multiple sites with positive rheumatoid factor (HCC) William Joseph MD [address] [place] [address] Referral ID Status Reason Start Date Expiration Date Visits Requested Visits Authorized [id number] Pending Review Specialty Services Required 01/23/[phone] Question Answer Referral Priority Within 10 days (routine) Comments Documentation of Lftv-sh-Viea Encounter Addendum Patient Name: Ignacio Garcia I certify that this patient is under my care and that I, or a nurse practitioner or physician's assistant teaching professor working with me, had a [id number] encounter that meets the physician mvvo-tr-mqet encounter requirements with this patient on: 01/23/23 The encounter with the patient was in whole, or in part, for the following medical condition, which is the primary reason for home health care (List medical condition): Convalescence from acute illness I certify that, based on my findings, the following services are medically necessary home health services: Nursing and Physical Therapy To provide the following care/treatments: (All hospitalists not following the patient after discharge should complete this section): Opal Primary Care Physician to follow home care plan of care after discharge: Opal My clinical findings support the need for the above services because: patient with severe RA, multiple joint pain Further, I certify that my clinical findings support that this patient is homebound (i.e. Absences from home require considerable and taxing effort and are for medical reasons or nondenominational services or infrequently or of short duration when for other reason) because: Patient with severe joint pain, can't walk well Physician Signature: Date of Signature: Physician Printed Name: William Joseph MD * Evaluate & Treat - Unlimited Visits (Within 30 days (routine)) - Pending Review Specialty Diagnoses / Procedures Referred By Suha mitchell Referred To Contact Orthopaedic Surgery / Orthopedics Diagnoses Dislocation of finger, initial encounter William Jospeh MD [address] [place] [address] Referral ID Status Reason Start Date Expiration Date Visits Requested Visits Authorized [id number] Pending Review Specialty Services Required 01/23/[phone] Question Answer Referral Priority Within 30 days (routine) What body part is the patient being seen for? Hand What condition is the patient being seen for? Fracture including related infection Comments And dislocation Reason for Visit * Reason Comments Hospital Follow-Up ER follow up from [place] [facility] 12/30/22, seen for COPD exacerbation and a fall. Patient states since d/c he is doing well. Patient states concerns for needing some things in his home to help him get around more. Patient also is wondering if he can get home health services. Encounter Details Date Type Department Care Team Description 01/23/2023 Office Visit General Internal Medicine [facility] [place] [address] [place] [address] William Joseph MD [address] [place] [address] Closed fracture of left hand, initial encounter*; Rheumatoid arthritis involving multiple sites with positive rheumatoid factor (HCC); Thoracic aortic aneurysm without rupture, unspecified part (HCC); Axillary lymphadenopathy; Abnormal chest CT; Dislocation of finger, initial encounter; Hip pain, right; Primary osteoarthritis of right hip Allergies No known active allergiesdocumented as of this encounter (statuses as of 01/23/2023) Medications Medication Sig Dispensed Refills Start Date End Date Status Cholecalciferol (VITAMIN D3) 50 MCG (1999 UT) Tablet Take 0.5 Tablets by mouth. Every [...] 14 DAYS 2 Each 5 11/13/2022 Active Additional Information Patient not taking.Reported on 01/23/2023 Nebulizer/Tubing/M outhpiece KitIndications:Bro nchiectasis with acute lower [...] as of this encounter (statuses as of 01/23/2023) Active Problems Problem Noted Date Thoracic aortic [...] as of this encounter (statuses as of 01/23/2023) Resolved Problems Problem Noted Date Resolved Date Secondary hyperparathyroidism 08/10/2019 History of rheumatoid arthritis 09/04/2017 08/20/2018 History of rheumatoid arthritis 01/06/2016 07/27/2016 Kidney disease, chronic, stage III (GFR 30-59 ml /min) 08/09/2014 07/30/2017 Overview: Per CKD protocol #1 HTN, goal below 140/90 8 Kidney disease, chronic, stage III (GFR 30-59 ml /min) 03/24/2012 documented as of this encounter (statuses as of 01/23/2023) Immunizations Name Administration Dates Next Due COVID-19 mRNA, LNP-s, No Pre serve, 2-Dose Series ([employer]) 03/01/2021,08/03/2020,07/13/2020 Pneumococcal Conjugate Vacc, 13 Valent (Prevnar) 07/13/2015 Pneumococcal Polysaccharide PPV23 (Pneumovax) 06/08/2013,03/19/2013(Deferred: Patient Refused - not interested) Season Influenza, Quad, PF, Adjuvanted, 65+ Yrs, IM (FLUAD) 03/15/2020 Seasonal Influenza, PF, 6 mo ns & Above, IM , (Flulaval) 05/22/2018 Seasonal Influenza, Quadriva lent Hd (Fluzone Hd) 05/09/2022,05/02/2021 Seasonal Influenza, Quadriva lent, No Preserve, IM [...] Sign Reading Time Taken Comments Blood Pressure 122/68 01/23/2023 11:18 AM EDT Pulse 76 01/23/2023 11:18 AM EDT Temperature 36.6 C (97.8 F) 01/23/2023 1 1:18 AM EDT Respiratory Rate - - Oxygen Saturation 98% 01/23/2023 11: 18 AM EDT Inhaled Oxygen Concentration - - Weight 64.8 kg (142 lb 12.8 oz) 023 11:18 AM EDT Height 170.2 cm (5' 7") 01/23/2023 11:1 8 AM EDT Body Mass Index 22.37 01/23/2023 11:18 AM EDT documented in this encounter Progress Notes * William Joseph MD - 01/23/2023 11:48 AM EDT Chief Complaint Patient presents with Hospital Follow-Up ER follow up from [facility], d/c 12/30/22, seen for COPD exacerbation and a fall. Patient states since d/c he is doing well. Patient states concerns for needing some things in his home to help him get around more. Patient also is wondering if he can get home health services. SUBJECTIVE: Ignacio Garcia is a 77 year old male with PMH as below who presents for er follow up. Was at [facility] 12/30/22 after a fall when he was taking he to [facility] [place]. He also had some increase lloyd and fatigue. Found to have left hand finger dislocation/fx, told labs ok and sent home. Since home better, breathing is stable, no severe sob, wheezing. He has no fevers, chills, energy is still down some. Does have trouble with pain right hip, and other joints as not taking Humira right now for RA. He denies further falls. Appetite is down some. Would like parking placard and home nurse evaul - notdriving - driving. No fevers, chills. Would like a cane to help with ambulation. Did see pulm about abnormal CT chest/lymphadenopathy, bronch scheduled, but he cancelled, doesn't want to drive to [facility], would like to see someone at [facility]. Also went to [facility] for ortho, unable to fix finger dislocation. Mood is ok, stopped ssri, doesn't want to take. Patient Active Problem List Diagnosis Code Encounter for therapeutic drug monitoring Z51.81 Pernicious anemia D51.0 Bronchiectasis (HCC) J47.9 Thoracic aortic aneurysm ([facility]) I71.20 Benign hypertension with CKD (chronic kidney disease) stage III ([facility]) I12.9, N18.30 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 Bunion, left foot M21.612 Primary osteoarthritis of right hip M16.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 ([facility]) M05.79 Mixed hyperlipidemia E78.2 Thyroid nodule 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 Ruptured extensor tendon of hand or wrist, left, initial encounter S66.812A Thoracic aortic aneurysm without rupture ([facility]) I71.20 Current Outpatient Medications Medication Sig Dispense Refill Cholecalciferol (VITAMIN D3) 50 MCG (1999 UT) Tablet Take 0.5 Tablets by mouth. Every 2 - 3 days Benzonatate 100 MG Oral Capsule (Tessalon Perles) Take by mouth 1 Capsule 2 times a day as needed for Cough. Do not cut, crush, or chew. 50 Capsule 2 Fluticasone Propionate HFA 44 MCG/ACT Inhalation Aerosol (Flovent HFA) Inhale by mouth 1 Puff in the morning AND 1 Puff before bedtime. 10.6 g 5 predniSONE 5 MG Oral Tablet (Deltasone) Take 1 Tablet (5 mg) by mouth in the morning. 30 Tablet 5 Benazepril HCl 5 MG Oral Tablet (Lotensin) Take 1 Tablet by mouth in the morning. 90 Tablet 1 amLODIPine Besy-Benazepril HCl 2.5-10 MG Oral Capsule (Lotrel) Take 1 Capsule by mouth in the morning. 90 Capsule 1 Cyanocobalamin 1000 MCG/ML Injection Solution (Cyanocobalamin) inject 1ml into a large muscle everymonth 1 mL 4 Nebulizer/Tubing/Mouthpiece Kit Use as directed Bronchiectasis J47.9 1 Kit 5 Full Kit Nebulizer Set Use as directed J47.9 1 Each 0 Albuterol Sulfate (2.5 MG/3ML) 0.083% Inhalation Nebulization Solution (Proventil) Inhale 1 Vial via nebulizer every 4 hours as needed for Wheezing. , use in place of rescue inhaler. J47.9 360 mL 11 Humira Pen 40 MG/0.4ML Subcutaneous Pen-injector Kit (Adalimumab) INJECT 40 MG (0.4 ML) UNDER THE SKIN EVERY 14 DAYS (Patient not taking: Reported on 01/23/2023) 2 Each 5 Current Facility-Administered Medications Medication Dose Route Frequency Provider Last Rate Last Admin Albuterol Sulfate (Proventil) (2.5 MG/3ML) 0.083% inhalation solution 2.5 mg 2.5 mg Nebulizer PRN Noble Cervantes MD Albuterol Sulfate (Proventil) (5 MG/ML) 0.5% *conc* inhalation solution 2.5 mg 2.5 mg Nebulizer Vamsi Cervantes MD Review of patient's allergies indicates: No Known Allergies Health Maintenance Due Topic Date Due FOBT ANNUALLY,AGES 18-90 03/22/2017 Zoster Vaccines (2 of 2) 12/26/2020 COVID-19 Vaccine (4 - Pfizer risk series) 04/26/2021 Depression, Most Recent Score >= 10 (will fire each visit until score < 10) 11/08/2022 ROS: CONSTITUTIONAL: No fevers, sweats, or chills EYE: No recent significant change in vision EARS: No ear pain, No drainage, No tinnitus or vertigo, and No recent change in hearing NOSE: No history of frequent colds or sinusitis, No nasal stuffiness, No history of Hay Fever, and No significant epistaxis PULMONARY: No recent change in breathing CARDIOVASCULAR: No chest pain, No orthopnea, No paroxysmal nocturnal dyspnea, No edema, No palpitations, and No syncope ALL OTHER SYSTEMS NEGATIVE I reviewed social, PMH, PSH, and family history and updated where needed. 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 Tobacco Use Smoking status: Former Packs/day: 2.00 Years: 35.00 Pack years: 70.00 Types: Cigarettes Quit date: 06/25/1990 Years since quittin.6 Smokeless tobacco: Never Vaping Use Vaping Use: Never used Substance and Sexual Activity Alcohol use: Not Currently Comment: occassional Drug use: No Sexual activity: Yes Partners: Female Other Topics Concern Service Not Asked Blood Transfusions Not Asked Caffeine Concern Not Asked Occupational Exposure Not Asked Hobby Hazards Not Asked Sleep Concern Not Asked Stress Concern Not Asked Weight Concern Not Asked Special Diet Not Asked Back Care Not Asked Exercise Not Asked Bike Helmet Not Asked Seat Belt No Self-Exams Not Asked Social History Narrative No pets. No mold. Social Determinants of Health Financial Resource Strain: Not on file Food Insecurity: No Food Insecurity Worried About Running Out of Food in the Last Year: Never true Ran Out of Food in the Last Year: Never true Transportation Needs: Not on file Physical Activity: Not on file Stress: Not on file Social Connections: Not on file Intimate Partner Violence: Not on file Housing Stability: Not on file Past Medical History: Diagnosis Date Bronchiectasis (HCC) 12/08/2013 Encounter for long-term (current) use of other medications 07/27/2010 History of rheumatoid arthritis 01/06/2016 HTN, goal below 140/90 Pernicious anemia 08/24/2010 Thyroid nodule 08/10/2019 Past Surgical History: Procedure Laterality Date DENTAL SURGERY PROCEDURE NEC 1980 REMOVE TONSILS & ADENOIDS, UNDER 12 1954 Family History Problem Relation Age of Onset Osteoarthritis Mother Hypertension Mother Other (Natural causes) Mother age 83 Other (Natural causes) Father age 92 No Known Problems Sister OBJECTIVE: PHYSICAL EXAM: BP 122/68 | Pulse 76 | Temp 36.6 C (97.8 F) | Ht 1.702 m (5' 7") | Wt 64.8 kg (142 lb 12.8 oz) | SpO2 98% | BMI 22.37 kg/m | BSA 1.75 m General: alert, healthy, and no distress Head: Normocephalic, No masses, lesions, tenderness or abnormalities Eye Exam: conjunctiva are pink and non-injected, sclera clear Ears: External ears normal, Canals clear, TM's Normal Heart: regular rate & rhythm, no murmur, no gallops, PMI non-displaced, S-1 normal, and S-2 normal Lungs: normal respiratory rate and rhythm, lungs clear to auscultation Extremities: no edema, no clubbing, no cyanosis left middle finger swollen, no pain Neuro Exam: stands on own, needs aid to table Psych: normal affect, no flight of ideas or tangential thought, good eye contact, no pressured speech [facility] ER 12/30: 1. Dorsal dislocation at the PIP joint of the left middle finger. 2. Nondisplaced fractures within the mid shafts of the third and fourth metacarpals. 3. Small intra-articular fracture the base of the left fifth finger proximal phalanx. Medical decision making differential diagnosis includes bronchitis, COPD, bronchiectasis, metabolicderangement, dehydration, early sepsis Plan is to check labs, EKG, chest x-ray, x-ray left hand Patient has COPD changes on chest x-ray patient has no evidence of sepsis, patient does have a lefthand with metacarpal fractures present patient was splinted. Patient will need follow-up with primary care physician and orthopedics. Patient was also given case management instructions for home health and need for follow-up CT SCAN 11/14/22: 1. Extensive predominantly ground-glass nodularity with tree-in-bud morphology most pronounced lower lungs. Likely inflammatory/infectious. Correlate for atypical infections. Minimal associated bronchiectasis. Short-term follow-up necessary to assure clearing 2. Some additional more solid small lung nodularity which could also be inflammatory/infectious however close follow-up CT in 3 months suggested to assure stability/resolution. 3. Advanced emphysema. 4. Bilateral slightly bulky axillary lymphadenopathy, nonspecific. Correlate clinically. 5. See above for other details. 6. Heterogeneous enlarged right lobe of thyroid with suspected multiple internal nodules. Consider future thyroid ultrasound. 12.06.22 rheum: His rheumatoid arthritis is doing better on Humira and will continue with that treatment. He has right trochanteric bursitis and discussed injection, he agreed and procedure note is below. If this fails to help his pain will get him set up with Radiology for right hip joint injection. 12/19/22 ortho: Discussed today with the patient the risks and benefit of IA steroids and PRP and somewhat possiblelimited success given his level of OA/ I also discussed JENNIFER consult given is relatively good healthand appropriate BMI, he will have consult first then decide if he wishes injection. Written info given on injections 11/23/22 pulm: Bronchoscopy under general anesthesia Blood for connective tissue screening Spirogram Bronchodilator nebulization and flutter device Diet and exercise as tolerated Follow up with mercury washer Blood for IgE level Call the clinic if any worsening shortness of breath or new symptoms. ASSESSMENT: S62.92XA Closed fracture of left hand, initial encounter (primary encounter diagnosis) M05.79 Rheumatoid arthritis involving multiple sites with positive rheumatoid factor (HCC) I71.20 Thoracic aortic aneurysm without rupture, unspecified part (HCC) R59.0 Axillary lymphadenopathy R93.[address] S63.259A Dislocation of finger, initial encounter M25.551 Hip pain, right M16.11 Primary osteoarthritis of right hip PLAN: Closed fracture of left hand, initial encounter (Primary) - HOME HEALTH REFERRAL OP With dislocation, will get to ortho, [place] [facility] [place] Given deconditioning, ra, feel home health needed, will refer Discussed office of aging, they will call Rheumatoid arthritis involving multiple sites with positive rheumatoid factor (HCC) - COMPREHENSIVE METABOLIC PANEL; Future; Expected date: 01/23/2023 - ERYTHROCYTE SEDIMENTATION RATE (ESR); Future; Expected date: 01/23/2023 - CRP (INFLAMMATORY MARKER); Future; Expected date: 01/23/2023 - HOME HEALTH REFERRAL OP - CANE ADJUST/FIXED QUAD/3 PRO He is holding humira now Check labs as above May need alternative med if can't inject Feel needs cane for safe ambulation Parking placard form filled out and given to him Thoracic aortic aneurysm without rupture, unspecified part ([facility]) Follow on CT Axillary lymphadenopathy - PULMONARY REFERRAL OP Was to have bronch for this and chest ct findings Breathing seems stable Need to schedule ct next month and get into pulm, he wants to go to [facility] Abnormal chest CT - PULMONARY REFERRAL OP Dislocation of finger, initial encounter - ORTHOPAEDICS REFERRAL OP Hip pain, right He is weighing options with ortho/injection Primary osteoarthritis of right hip As above Follow Up: Return if symptoms worsen or fail to improve and as scheduled., for Labs Today. | For: Labs Today | Check-out note: Pls schedule chest ct for next month William Joseph MD documented in this encounter Nursing Notes * Sandip Khoury CMA - 01/23/2023 11:15 AM EDT Chief Complaint Patient presents with Hospital Follow-Up ER follow up from [facility], d/c 12/30/22, seen for COPD exacerbation and a fall. Patient states since d/c he is doing well. Patient states concerns for needing some things in his home to help him get around more. Patient also is wondering if he can get home health services. documented in this encounter Plan of Treatment Upcoming Encounters Date Type Specialty Care Team Description 02/13/2023 Office Visit Internal Medicine William Joseph MD [address] [place] [address] 02/19/2023 Imaging Radiology 05/29/2023 Office Visit Rheumatology Carlos Alberto Matthews MD [address] [place] [address] 06/13/2023 Office Visit Internal Medicine William Joseph MD [address] [place] [address] Pending Results Name Type Priority Associated Diagnoses Date /Time COMPREHENSIVE METABOLIC PANEL Lab Routine Rheumatoid arthritis involving multiple sites with positive rheumatoid factor (HCC) 01/23/2023 12:00 PM EDT ERYTHROCYTE SEDIMENTATION RATE (ESR) Lab Routine Rheumatoid arthritis involving multiple sites with positive rheumatoid factor (HCC) 01/23/2023 12:00 PM EDT CRP (INFLAMMATORY MARKER) Lab Routine Rheumatoid arthritis involving multiple sites with positive rheumatoid factor (HCC) 01/23/2023 12:00 PM EDT Scheduled Orders Name Type Priority Associated Diagnoses Orde r Schedule COMPREHENSIVE METABOLIC PANEL Lab Routine Rheumatoid arthritis involving multiple sites with positive rheumatoid factor (HCC) Expected: 01/23/2023 (Approximate), Expires: 01/23/2024 ERYTHROCYTE SEDIMENTATION RATE (ESR) Lab Routine Rheumatoid arthritis involving multiple sites with positive rheumatoid factor (HCC) Expected: 01/23/2023 (Approximate), Expires: 01/23/2024 CRP (INFLAMMATORY MARKER) Lab Routine Rheumatoid arthritis involving multiple sites with positive rheumatoid factor (HCC) Expected: 01/23/2023 (Approximate), Expires: 01/23/2024 Scheduled Referrals Name Type Priority Associated Diagnoses Order Schedule ORTHOPAEDICS REFERRAL OP Referral Within 30 days (routine) Dislocation of finger, initial encounter Ordered: 01/23/2023 HOME HEALTH REFERRAL OP Referral Within 10 days (routine) Closed fracture of left hand, initial encounter Rheumatoid arthritis involving multiple sites with positive rheumatoid factor (HCC) Ordered: 01/23/2023 PULMONARY REFERRAL OP Referral Within 10 days (routine) Axillary lymphadenopathy Abnormal chest CT Ordered: 01/23/2023 Health Maintenance Due Date Last Done Comments [...] Additional history exists CKD HGB USE SMARTSET 28755 11/13/202311/12, 11/12/2022, 09/27/2022, Additional history exists CKD PHOS USE SMARTSET 27102 11/13/202310/25, 03/16/2021, 03/15/2020, Additional history exists DTaP,Tdap,and [...] Not on filedocumented as of this encounter Visit Diagnoses Diagnosis Closed fracture of left hand, initial encounter- Primary Rheumatoid arthritis involving multiple sites with positive rheumatoid factor (HCC) Thoracic aortic aneurysm without rupture, unspecified part (HCC) Axillary lymphadenopathy Enlargement of lymph nodes Abnormal chest CT Nonspecific (abnormal) findings on radiological and other examination of other intrathoracic organs Dislocation of finger, initial encounter Hip pain, right Pain in joint, pelvic region and thigh Primary osteoarthritis of right hip Primary localized osteoarthrosis, pelvic region and thigh documented in this encounter Care Teams Critical Care Clinical Nurse Specialist Relationship Specialty Start Date End Date William Joseph MD [address] [place] [address], [place] [id number] PCP - General Internal Medicine 03/18/12 documented as of this encounter
--- OUTSIDE RECORDS SUMMARY | 2023-01-29 04:59 | External Medical Summary ---
Author Name Unknown Address Unknown Organization K09:[facility] [place] [address] Laboratory Report Ordering Provider Test Date Status KATHY RAE 01/23/2023 12:00:57 Final Observation Date Value Abnormality Reference (Units ) Status BUN 01/23/2023 12:00:57 21 Above high normal 6-20 (mg/dL) Final Creatinine 01/23/2023 12:00:57 1.2 0.6-1.2 (mg/dL) Final Glomerular filtration rate/1.73 sq M.predicted [Volume Rate/Area] in Serum, Plasma or Blood by Creatinine-based formula (CKD-EPI) 01/23/2023 12:00:57 63 >=60 (mL/min) Final Performing Location [facility] [place] [address]
--- OUTSIDE RECORDS SUMMARY | 2023-01-29 04:59 | External Medical Summary | Summary of Care ---
Author Name Unknown Organization [facility] Address [address] [place] [address] Phone [phone] Care Team Providers Care Supervisor Metal Furniture Fabrication Name Role Phone William Joseph MD Primary Care Provider + Reason for Visit * Reason Onset Date Comments Advice 01/02/2023 Emergency Department Follow-Up 01/02/2023 Encounter Details Date Type Department Care Team Description 01/02/2023 Telephone General Internal Medicine [facility] [address] [place] [address] William Joseph MD [address] [place] [address] Advice; Emergency Department Follow-Up Allergies No known active allergiesdocumented as of this encounter (statuses as of 01/14/2023) Medications Medication Sig Dispensed Refills Start Date [...] as of this encounter (statuses as of 01/14/2023) Active Problems Problem Noted Date Thoracic aortic [...] as of this encounter (statuses as of 01/14/2023) Resolved Problems Problem Noted Date Resolved Date Secondary hyperparathyroidism 08/10/2019 History of rheumatoid arthritis 09/04/2017 08/20/2018 History of rheumatoid arthritis 01/06/2016 07/27/2016 Kidney disease, chronic, stage III (GFR 30-59 ml /min) 08/09/2014 07/30/2017 Overview: Per CKD protocol #1 HTN, goal below 140/90 8 Kidney disease, chronic, stage III (GFR 30-59 ml /min) 03/24/2012 documented as of this encounter (statuses as of 01/14/2023) Immunizations Name Administration Dates Next Due COVID-19 mRNA, LNP-s, No Pre serve, 2-Dose Series ([employer]) 03/01/2021,08/03/2020,07/13/2020 Pneumococcal Conjugate Vacc, 13 Valent (Prevnar) [...] Miscellaneous Notes * Telephone Encounter - PAULA Craven - 01/14/2023 3:04 PM EDT Pt has been scheduled for an appt on 01.23.2023 at 11:20am with Dr William Joseph. * Telephone Encounter - PAULA Gomes - [...] Encounters Date Type Specialty Care Team Description 01/23/2023 Office Visit Internal Medicine William Joseph MD [address] [place] [address] 02/13/2023 Office Visit Internal Medicine William Joseph MD [address] [place] [address] 05/29/2023 Office Visit Rheumatology Carlos Alberto Matthews MD [address] [place] [address] 06/13/2023 Office Visit Internal Medicine William Joseph MD [address] [place] [address] Health Maintenance Due Date Last Done Comments FOBT ANNUALLY,AGES 18-90 03/22/2017 03/22/2016, 09/26 Zoster Vaccines (2 of 2) 12/26/2020 10/31/2020, 12/25 COVID-19 Vaccine (4 - Pfizer risk series) 04/26/2021 03/01/2021, 08/03/2020, 07/13/2020 Depression, Most Recent Score >= 10 (will fire each visit until score < 10) 11/08/2022 11/07/2022 Influenza Vaccine (FLU shot) (#1) 2023 05/09/2022, 05/02/2021, 03/15/2020, Additional history exists GFR 05/14/2023 11/12/2022, 0508/2022, 12/06/2021, Additional history exists Albumin/Creatinine Ratio 11/13/2023 023, 03/16/2021, 08/03/2016, Additional history exists CKD HGB USE SMARTSET 34596 11/13/202311/12, 11/12/2022, 09/27/2022, Additional history exists CKD PHOS USE SMARTSET 01064 11/13/202310/25, 03/16/2021, 03/15/2020, Additional history exists DTaP,Tdap,and [...] filedocumented as of this encounter Care Teams Supervisor Metal Furniture Fabrication Relationship Specialty Start Date End Date William Joseph MD [address] [place] [address], [place] [address] PCP - General Internal Medicine 03/18/12 documented as of this encounter
--- OUTSIDE RECORDS SUMMARY | 2023-01-29 04:59 | External Medical Summary | Summary of Care ---
Author Name Unknown Organization [facility] Address [address] [place] [address] Phone [phone] Care Team Providers Care Operating Room Surgical Technician Name Role Phone William Joseph MD Primary Care Provider + Reason for Referral * Evaluate & Treat - Unlimited Visits (Within 10 days (routine)) - Pending Review Specialty Diagnoses / Procedures Referred By Contac t Referred To Contact Orthopaedic Surgery / Orthopedics Diagnoses Primary osteoarthritis of both hips Carlos Alberto Rausch DO [address] [place] [address] Referral ID Status Reason Start Date Expiration Date Visits Requested Visits Authorized [id number] Pending Review Specialty Services Required 12/19/[phone] Question Answer Referral Priority Within 10 days (routine) What body part is the patient being seen for? Hip What condition is the patient being seen for? Arthritis including related infection Comments JENNIFER consult Dr Workman, Tien, or Dr Delgado Reason for Visit * Reason Comments NEW PATIENT Right hip * Evaluate & Treat - Unlimited Visits (Within 10 days (routine)) - Pending Review Specialty Diagnoses / Procedures Referred By Contac t Referred To Contact Orthopaedic Surgery / Orthopedics Diagnoses Acute pain of right knee William Joseph MD [address] [facility] [place] [address] Referral ID Status Reason Start Date Expiration Date Visits Requested Visits Authorized [id number] Pending Review Specialty Services Required 11/18/[phone] Encounter Details Date Type Department Care Team Description 12/19/2022 Office Visit [facility] [address] [place] [address] Carlos Alberto Rausch S, DO [address] [address] Primary osteoarthritis of both hips* Allergies No known active allergiesdocumented as of this encounter (statuses as of 12/19/2022) Medications Medication Sig Dispensed Refills Start Date [...] as of this encounter (statuses as of 12/19/2022) Active Problems Problem Noted Date Thoracic aortic [...] as of this encounter (statuses as of 12/19/2022) Resolved Problems Problem Noted Date Resolved Date Secondary hyperparathyroidism 08/10/2019 History of rheumatoid arthritis 09/04/2017 08/20/2018 History of rheumatoid arthritis 01/06/2016 07/27/2016 Kidney disease, chronic, stage III (GFR 30-59 ml /min) 08/09/2014 07/30/2017 Overview: Per CKD protocol #1 HTN, goal below 140/90 8 Kidney disease, chronic, stage III (GFR 30-59 ml /min) 03/24/2012 documented as of this encounter (statuses as of 12/19/2022) Immunizations Name Administration Dates Next Due COVID-19 mRNA, LNP-s, No Pre serve, 2-Dose Series ([employer]) 03/01/2021,08/03/2020,07/13/2020 Pneumococcal Conjugate Vacc, 13 Valent (Prevnar) [...] on file documented as of this encounter Progress Notes * Carlos Alberto Awais Miracle, DO - 12/19/2022 10:00 AM EDT Ignacio Garcia [phone] Ignacio Garcia is a 77 year old male who presents for consultation for right > left hip injury/pain to [facility]. Consult requested by William Joseph MD. Ignacio Garcia is here unaccompanied Date of Injury: no injury, he is followed by Dr Orosco as well and had troch injection the right side 12/06/22 that note as reviewed History: History - pain x years, no issues with sitting or laying on his side, stairs are difficult and any rotation of his hip joint right > left Patient has tried tylenol and RX meds. No formal physical therapy. Previous hip injuries include: none Review of Systems: no fevers or chills, no unexplained weight loss, no rashes or all other pertinent systems negative. Past Medical History: Diagnosis Date Bronchiectasis (HCC) 12/08/2013 Encounter for long-term (current) use of other medications 07/27/2010 History of rheumatoid arthritis 01/06/2016 HTN, goal below 140/90 Pernicious anemia 08/24/2010 Thyroid nodule 08/10/2019 Family History Problem Relation Age of Onset Osteoarthritis Mother Hypertension Mother Other (Natural causes) Mother age 83 Other (Natural causes) Father age 92 No Known Problems Sister Social History Socioeconomic History Marital status: Spouse name: Emily Number of children: 3 Years of education: 14 Highest education level: Not on file Occupational History 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 30 Tablet5 Benazepril HCl 5 MG Oral Tablet (Lotensin) Take 1 Tablet by mouth in the morning. 90 Tablet 1 amLODIPine Besy-Benazepril HCl 2.5-10 MG Oral Capsule (Lotrel) Take 1 Capsule by mouth in the morning. 90 Capsule 1 Cyanocobalamin 1000 MCG/ML Injection Solution (Cyanocobalamin) inject 1ml into a large muscle every month 1 mL 4 Humira Pen 40 MG/0.4ML Subcutaneous Pen-injector Kit (Adalimumab) INJECT 40 MG (0.4 ML) UNDER THE SKIN EVERY 14 DAYS 2 Each 5 Nebulizer/Tubing/Mouthpiece Kit Use as directed Bronchiectasis J47.9 1 Kit 5 Full Kit Nebulizer Set Use as directed J47.9 1 Each 0 Albuterol Sulfate (2.5 MG/3ML) 0.083% Inhalation Nebulization Solution (Proventil) Inhale 1 Vial via nebulizer every 4 hours as needed for Wheezing. , use in place of rescue inhaler. J47.9 360 mL11 Current Facility-Administered Medications Medication Dose Route Frequency Provider Last Rate Last Admin Albuterol Sulfate (Proventil) (2.5 MG/3ML) 0.083% inhalation solution 2.5 mg 2.5 mg Nebulizer PRN Noble Cervantes MD Albuterol Sulfate (Proventil) (5 MG/ML) 0.5% *conc* inhalation solution 2.5 mg 2.5 mg NebulizerPRAbdiel Cervantes MD Physical Exam General: in no acute distress Mood and Affect: normal Gait and Station: moderately antalgic Hip and Pelvis Exam Gait: Limp - positive . Antalgic - positive ROM: extremely limited in All planes right > left Palpation: Mild tenderness to palpation over greater trochanter on the right Strength: Symmetric and age appropriate given his level of OA Hip/pelvis tests: Passive internal and external rotation of femoral head positive Bilateral Radiology (I have personally reviewed the films done 11/12/22 Pelvis/ hip - agree with below Severe narrowing of the right hip joint with subchondral sclerosis and cyst formation on both sides of the hip joint superiorly. Mild superolateral subluxation of the right hip. Moderate to severe narrowing superior aspect left hip joint with geode formation and sclerosis on both sides of the left hip joint superiorly. Marginal osteophytes border the left hip joint. Degenerative changes noted in the lumbar spine. Assessment and Plan: Discussed today with the patient the risks and benefit of IA steroids and PRP and somewhat possiblelimited success given his level of OA/ I also discussed JENNIFER consult given is relatively good healthand appropriate BMI, he will have consult first then decide if he wishes injection. Written info given on injections 1) Primary osteoarthritis of both hips (Primary) - ORTHOPAEDICS REFERRAL OP Carlos Alberto Rausch, DO Primary Care Sports Medicine Orthopaedics [facility] [address] [facility] [place] [address] documented in this encounter Nursing Notes * SHAWNA Jaramillo - 12/19/2022 10:04 AM EDT New Patient Here for todays visit regarding: Hip Side: Right Injury: No Injury, or falls Recent Imaging: X ray Prior treatment: Injections Goals for this appointment: dx and tx documented in this encounter Plan of Treatment Upcoming Encounters Date Type Specialty Care Team Description 01/17/2023 Hospital Encounter Surgery Noble Cervantes MD [address] [place] [address] 01/17/2023 Surgery Surgery Noble Cervantes MD [address] [place] [address] BRONCHOSCOPY DIAGNOSTIC WITH OR WITHOUT WASHING 05/29/2023 Office Visit Rheumatology Carlos Alberto Matthews MD [facility] [place] [address] 06/13/2023 Office Visit Internal Medicine William Joseph MD [address] [place] [address] Scheduled Procedures Name Priority Associated Diagnoses Date/Ti me BRONCHOSCOPY DIAGNOSTIC WITH OR WITHOUT WASHING Cough, unspecified type 01/17/2023 7:30 AM EDT Scheduled Referrals Name Type Priority Associated Diagnoses Orde r Schedule ORTHOPAEDICS REFERRAL OP Referral Within 10 days (routine) Primary osteoarthritis of both hips Ordered: 12/19/2022 Health Maintenance Due Date Last Done Comments [...] Additional history exists CKD HGB USE SMARTSET 37677 11/13/202311/12, 11/12/2022, 09/27/2022, Additional history exists CKD PHOS USE SMARTSET 43520 11/13/202310/25, 03/16/2021, 03/15/2020, Additional history exists DTaP,Tdap,and [...] as of this encounter Visit Diagnoses Diagnosis Primary osteoarthritis of both hips- Primary Primary localized osteoarthrosis, pelvic region and thigh Cough, unspecified type documented in this encounter Care Teams Operating Room Surgical Technician Relationship Specialty Start Date End Date William Joseph MD [address] [place] [address], [place] [address] PCP - General Internal Medicine 03/18/12 documented as of this encounter
--- OUTSIDE RECORDS SUMMARY | 2023-01-29 04:59 | External Medical Summary | Summary of Care ---
Author Name Unknown Organization [facility] Address [address] [place] [address] Phone [phone] Care Team Providers Care [employer] Inspector Name Role Phone William Joseph MD Primary Care Provider + Reason for Visit * Reason Onset Date Comments Advice 01/02/2023 Encounter Details Date Type Department Care Team Description 01/02/2023 Telephone General Internal Medicine [facility] [place] [address] [facility] [place] [phone] William Joseph MD [address] [place] [address] Advice Allergies No known active allergiesdocumented as of this encounter (statuses as of 01/09/2023) Medications Medication Sig Dispensed Refills Start Date [...] as of this encounter (statuses as of 01/09/2023) Active Problems Problem Noted Date Thoracic aortic [...] as of this encounter (statuses as of 01/09/2023) Resolved Problems Problem Noted Date Resolved Date Secondary hyperparathyroidism 08/10/2019 History of rheumatoid arthritis 09/04/2017 08/20/2018 History of rheumatoid arthritis 01/06/2016 07/27/2016 Kidney disease, chronic, stage III (GFR 30-59 ml /min) 08/09/2014 07/30/2017 Overview: Per CKD protocol #1 HTN, goal below 140/90 8 Kidney disease, chronic, stage III (GFR 30-59 ml /min) 03/24/2012 documented as of this encounter (statuses as of 01/09/2023) Immunizations Name Administration Dates Next Due COVID-19 mRNA, LNP-s, No Pre serve, 2-Dose Series (Pfizer) 03/01/2021,08/03/2020,07/13/2020 Pneumococcal Conjugate Vacc, 13 Valent (Prevnar) [...] encounter Miscellaneous Notes * Telephone Encounter - Oksana Barksdale LPN [...] Encounters Date Type Specialty Care Team Description 05/29/2023 Office Visit Rheumatology Carlos Alberto Matthews MD [address] [place] [address] 06/13/2023 Office Visit Internal Medicine William Joseph MD [address] [facility] [address] Health Maintenance Due Date Last Done Comments [...] Additional history exists CKD HGB USE SMARTSET 14456 11/13/202311/12, 11/12/2022, 09/27/2022, Additional history exists CKD PHOS USE SMARTSET 45049 11/13/202310/25, 03/16/2021, 03/15/2020, Additional history exists DTaP,Tdap,and [...] filedocumented as of this encounter Care Teams [employer] Inspector Relationship Specialty Start Date End Date William Joseph MD [address] [place] [address], [place] [address] PCP - General Internal Medicine 03/18/12 documented as of this encounter
--- OUTSIDE RECORDS SUMMARY | 2023-01-29 04:59 | External Medical Summary | Summary of Care ---
Author Name Unknown Organization [facility] Address [address] [place] [address] Phone [phone] Care Team Providers Care Test Case Developer Name Role Phone William Joseph MD Primary Care Provider + Reason for Visit * Reason Onset Date Comments Advice 01/02/2023 Encounter Details Date Type Department Care Team Description 01/02/2023 Telephone General Internal Medicine [facility] [place] [address] [facility] [place] [phone] William Joseph MD 200 [place] [address] Advice Allergies No known active allergiesdocumented as of this encounter (statuses as of 01/02/2023) Medications Medication Sig Dispensed Refills Start Date [...] as of this encounter (statuses as of 01/02/2023) Active Problems Problem Noted Date Thoracic aortic [...] as of this encounter (statuses as of 01/02/2023) Resolved Problems Problem Noted Date Resolved Date Secondary hyperparathyroidism 08/10/2019 History of rheumatoid arthritis 09/04/2017 08/20/2018 History of rheumatoid arthritis 01/06/2016 07/27/2016 Kidney disease, chronic, stage III (GFR 30-59 ml /min) 08/09/2014 07/30/2017 Overview: Per CKD protocol #1 HTN, goal below 140/90 8 Kidney disease, chronic, stage III (GFR 30-59 ml /min) 03/24/2012 documented as of this encounter (statuses as of 01/02/2023) Immunizations Name Administration Dates Next Due COVID-19 [...] encounter Miscellaneous Notes * Telephone Encounter - William Joseph MD [...] Noble Cervantes MD [address] [address] 01/17/2023 Surgery Surgery Noble Cervantes MD [address] [address] BRONCHOSCOPY DIAGNOSTIC WITH OR WITHOUT WASHING 05/29/2023 Office Visit Rheumatology Carlos Alberto Matthews MD [address] [place] [address] 06/13/2023 Office Visit Internal Medicine William Joseph MD [address] [facility] [place] [address] Scheduled Procedures Name Priority Associated Diagnoses Date/Ti [...] Additional history exists CKD HGB USE SMARTSET 53059 11/13/202311/12, 11/12/2022, 09/27/2022, Additional history exists CKD PHOS USE SMARTSET 78785 11/13/202310/25, 03/16/2021, 03/15/2020, Additional history exists DTaP,Tdap,and [...] filedocumented as of this encounter Care Teams Test Case Developer Relationship Specialty Start Date End Date William Joseph MD [address] [place] [address], [place] [address] PCP - General Internal Medicine 03/18/12 documented as of this encounter
--- OUTSIDE RECORDS SUMMARY | 2023-01-29 04:59 | External Medical Summary | Summary of Care ---
Author Name Unknown Organization [facility] Address [address] [place] [address] Phone [phone] Care Team Providers Care Geological Manager Name Role Phone William Joseph MD Primary Care Provider + Reason for Visit * Reason Onset Date Comments Advice 01/02/2023 Encounter Details Date Type Department Care Team Description 01/02/2023 Telephone General Internal Medicine [facility] [place] [address] [facility] [place] [phone] William Joseph MD [address] [facility] [place] [address] Advice Allergies No known active allergiesdocumented as [...] Miscellaneous Notes * Telephone Encounter - PAULA Domínguez - [...] Encounter Surgery Noble Cervantes MD [address] [facility] [place] [address] 01/17/2023 Surgery Surgery [facility] Cervantes MD [address] [facility] [place] [address] BRONCHOSCOPY DIAGNOSTIC WITH OR WITHOUT WASHING 05/29/2023 Office Visit Rheumatology Carlos Alberto Matthews MD [address] [employer] [place] [address] 06/13/2023 [facility] [address] [place] [place] [address] Scheduled Procedures Name Priority Associated Diagnoses Date/Ti [...] 03/15/2020, Additional history exists GFR 05/14/2023 11/12/2022, 05/08/2022, 12/06/2021, Additional history exists Albumin/Creatinine Ratio 11/13/2023 023, 03/16/2021, 08/03/2016, Additional history exists CKD HGB USE SMARTSET 26480 11/13/202311/12, 11/12/2022, 09/27/2022, Additional history exists CKD PHOS USE SMARTSET 72083 11/13/202310/25, 03/16/2021, 03/15/2020, Additional history exists DTaP,Tdap,and [...] filedocumented as of this encounter Care Teams Geological Manager Relationship Specialty Start Date End Date William Joseph MD [address] [place] [address] PCP - General Internal Medicine 03/18/12 documented as of this encounter
--- OUTSIDE RECORDS SUMMARY | 2023-01-29 04:59 | External Medical Summary ---
Author Name Unknown Address Unknown Organization K01:[facility] [place] [facility] [address] [place] [address] Laboratory Report Ordering Provider Test Date Status KATHY RAE 01/23/2023 12:00:57 Final Observation Date Value Abnormality Reference (Units ) Status Erythrocyte sedimentation rate by Photometric method 01/23/2023 12:00:57 99 Above high normal <20 (mm/hour) Final Performing Location [facility] [place] [facility] [address] [place] [address]
--- OUTSIDE RECORDS SUMMARY | 2023-01-29 04:59 | External Medical Summary | Summary of Care ---
Author Name Unknown Organization [facility] Address [address] [place] [address] Phone [phone] Care Team Providers Care Loan Documentation Specialist Name Role Phone William Joseph MD Primary Care Provider + Reason for Referral * Evaluate & Treat - Unlimited Visits (Within 3 days (urgent)) - Pending Review Specialty Diagnoses / Procedures Referred By Suha mitchell Referred To Contact Pulmonary Diseases / Pulmonary Diagnoses Bronchiectasis with acute lower respiratory infection (HCC) Abnormal chest CT Axillary lymphadenopathy William Joseph MD [facility] [place] [id number] Referral ID Status Reason Start Date Expiration Date Visits Requested Visits Authorized [id number] Pending Review Specialty Services Required 11/21/[phone] Question Answer Referral Priority Within 3 days (urgent) Primary Reason for Referral? Other Comments Cough, abnormal CT possible infection ?bronch needed or other Reason for Visit * Reason Onset Date Comments Test Results 11/21/2022 Encounter Details Date Type Department Care Team Description 11/21/2022 Telephone General Internal Medicine [place] [address] [place] [id number] William Joseph MD [address] [place] [address] Test Results Allergies No known active allergiesdocumented as of this encounter (statuses as of 01/17/2023) Medications Medication Sig Dispensed Refills Start Date [...] 14 DAYS 2 Each 5 11/13/2022 Active Citalopram Hydrobromide 20 MG Oral Tablet (CeleXA)Indication s:Moderate major depression (HCC) 0.5 tablet by mouth once a day for 2 weeks then 1 tablet daily by mouth after that 30 Tablet 5 11/07/2022 3 Discontinued Azithromycin 250 MG Oral Tablet (Zithromax) Take 2 tabs by mouth on the first day, then 1 tab daily on days two through five 6 Tablet 0 11/21/2022 3 documented as of this encounter (statuses as of 01/17/2023) Active Problems Problem Noted Date Thoracic aortic [...] as of this encounter (statuses as of 01/17/2023) Resolved Problems Problem Noted Date Resolved Date Secondary hyperparathyroidism 08/10/2019 History of rheumatoid arthritis 09/04/2017 08/20/2018 History of rheumatoid arthritis 01/06/2016 07/27/2016 Kidney disease, chronic, stage III (GFR 30-59 ml /min) 08/09/2014 07/30/2017 Overview: Per CKD protocol #1 HTN, goal below 140/90 8 Kidney disease, chronic, stage III (GFR 30-59 ml /min) 03/24/2012 documented as of this encounter (statuses as of 01/17/2023) Immunizations Name Administration Dates Next Due COVID-19 mRNA, LNP-s, No Pre serve, 2-Dose Series (Live Mobile) 03/01/2021,08/03/2020,07/13/2020 Pneumococcal Conjugate Vacc, 13 Valent (Prevnar) [...] Tobacco: Never Alcohol Use Standard Drinks/Week Comments Yes 5.8 (1 standard drink = 0.6 oz p ure alcohol) occassional Food Insecurity Answer Date Recorded [...] encounter Miscellaneous Notes * Telephone Encounter - August Jaja Browning - 11/21/2022 4:14 PM EDT Spoke with pt. He is aware of apt on Saturday at [address] Cervantes at . * Telephone Encounter - Noble Cervantes MD - 11/21/2022 4:07 PM EDT 12 noon at [facility] this Saturday Thank you * Telephone Encounter - August Jaja Browning - 11/21/2022 2:[address] Cervantes, please review new patient referral. Pt lives in [place]. PCP requesting possible bronch? Please advise when and where to schedule pt. You are at office this Saturday * Telephone Encounter - Sandip Khoury CMA - 11/21/2022 12:33 PM EDT Patient aware and verbalized understanding, -agreeable to all testing, agreeable to seeing pulmonology -Denied any lumps in Armpits or discomfort Scheduling please assist with all appts and testing. * Telephone Encounter - Sandip Khoury CMA - 11/21/2022 12:25 PM EDT ----- Message from William Joseph MD sent at 11/21/2022 11:31 AM EDT ----- 1. Some changes in lungs which maybe from infection, suggest azithromycin for 5 days to see if helps. 2. Small nodules which maybe infection, but would recheck CT in 3 months to follow 3. Bilateral adenopathy in arms, and lumps in arm pit at all? Please let me know 4. If willing, I want him to see pulm about findings, is he willing? 5. Thyroid nodules, pls schedule thyroid u/s as ordered if not scheduled yet 6. Has gallstones, would let be unless any abdominal pain, bloating with fatty meals, if so, may need to see surgery documented in this encounter Plan of Treatment Upcoming Encounters Date Type Specialty Care Team Description 01/23/2023 Office Visit Internal Medicine William Joseph MD [address] [place] [id number] 02/13/2023 Office Visit Internal Medicine William Joseph MD [address] [place] [address] 05/29/2023 Office Visit Rheumatology Carlos Alberto Matthews MD [address] [facility] [place], [place] [address] 06/13/2023 Office Visit Internal Medicine William Joseph MD [address] [place] [place] [address] Scheduled Referrals Name Type Priority Associated Diagnoses Orde r Schedule PULMONARY REFERRAL OP Referral Within 3 days (urgent) Bronchiectasis with acute lower respiratory infection (HCC) Abnormal chest CT Axillary lymphadenopathy Ordered: 11/21/2022 Health Maintenance Due Date Last Done Comments [...] Additional history exists CKD HGB USE SMARTSET 44080 11/13/202311/12, 11/12/2022, 09/27/2022, Additional history exists CKD PHOS USE SMARTSET 46429 11/13/202310/25, 03/16/2021, 03/15/2020, Additional history exists DTaP,Tdap,and [...] as of this encounter Visit Diagnoses Diagnosis Bronchiectasis with acute lower respiratory infection (HCC)- Primary Bronchiectasis with acute exacerbation Abnormal chest CT Nonspecific (abnormal) findings on radiological and other examination of other intrathoracic organs Axillary lymphadenopathy Enlargement of lymph nodes documented in this encounter Care Teams Loan Documentation Specialist Relationship Specialty Start Date End Date William Joseph MD [address] [place] [address] PCP - General Internal Medicine 03/18/12 documented as of this encounter
--- OUTSIDE RECORDS SUMMARY | 2023-01-29 04:59 | External Medical Summary | Summary of Care ---
Author Name Unknown Organization [facility] Address [address] [place] [address] Phone [phone] Care Team Providers Care Substance Abuse Counselor Name Role Phone William Joseph MD Primary Care Provider + Reason for Visit * Reason Onset Date Comments Advice 01/02/2023 Encounter Details Date Type Department Care Team Description 01/02/2023 Telephone General Internal Medicine [facility] [place] [address] [facility] [place] [phone] William Joseph MD 200 [facility] [place] [address] Advice Allergies No known active allergiesdocumented as [...] William Joseph MD [address] [place] [address] 05/29/2023 Office Visit Rheumatology Carlos Alberto Matthews MD [address] [facility] [place] [address] 06/13/2023 Office Visit Internal Medicine William Joseph MD [address] [place] [address] [address] Health Maintenance Due Date Last Done Comments [...] Additional history exists CKD HGB USE SMARTSET 37015 11/13/202311/12, 11/12/2022, 09/27/2022, Additional history exists CKD PHOS USE SMARTSET 62113 11/13/202310/25, 03/16/2021, 03/15/2020, Additional history exists DTaP,Tdap,and [...] filedocumented as of this encounter Care Teams Substance Abuse Counselor Relationship Specialty Start Date End Date William Joseph MD [address] [place] [address], [place] [address] PCP - General Internal Medicine 03/18/12 documented as of this encounter
--- OUTSIDE RECORDS SUMMARY | 2023-01-29 04:59 | External Medical Summary | Summary of Care ---
Author Name Unknown Organization [facility] Address [address] [place] [address] Phone [phone] Care Team Providers Care Handicapper Harness Racing Name Role Phone William Joseph MD Primary Care Provider + Reason for Visit * Reason Onset Date Comments Appointment Canceled 01/07/2023 Bronch in t he OR Encounter Details Date Type Department Care Team Description 01/07/2023 Telephone Pulmonary Medicine [facility]a Lobato [address] [place] [phone] Noble Cervantes MD [address] [facility] [place] [address] Appointment Canceled (Bronch in the OR) Allergies No known active allergiesdocumented as of this encounter (statuses as of 01/07/2023) Medications Medication Sig Dispensed Refills Start Date [...] as of this encounter (statuses as of 01/07/2023) Active Problems Problem Noted Date Thoracic aortic [...] as of this encounter (statuses as of 01/07/2023) Resolved Problems Problem Noted Date Resolved Date Secondary hyperparathyroidism 08/10/2019 History of rheumatoid arthritis 09/04/2017 08/20/2018 History of rheumatoid arthritis 01/06/2016 07/27/2016 Kidney disease, chronic, stage III (GFR 30-59 ml /min) 08/09/2014 07/30/2017 Overview: Per CKD protocol #1 HTN, goal below 140/90 8 Kidney disease, chronic, stage III (GFR 30-59 ml /min) 03/24/2012 documented as of this encounter (statuses as of 01/07/2023) Immunizations Name Administration Dates Next Due COVID-19 mRNA, LNP-s, No Pre serve, 2-Dose Series (Encapson) 03/01/2021,08/03/2020,07/13/2020 Pneumococcal Conjugate Vacc, 13 Valent (Prevnar) [...] Miscellaneous Notes * Telephone Encounter - PAULA Acuna - 01/07/2023 11:36 AM EDT Everyone aware that this case is canceled. * Telephone Encounter - Rayna Browning - 01/07/2023 11:04 AM EDT Pt called the office requesting to cancel Bronch in the OR scheduled on 01/17/23. Pt states he has decided he does not want to go through with the procedure, he does not want to reschedule. documented in this encounter Plan of Treatment Upcoming Encounters Date Type Specialty Care Team Description 05/29/2023 Office Visit Rheumatology Carlos Alberto Matthews MD [address] [place] [address] 06/13/2023 Office Visit Internal Medicine William Joseph MD [address] [facility] [place] [address] Health Maintenance Due Date Last Done Comments [...] Additional history exists CKD HGB USE SMARTSET 74912 11/13/202311/12, 11/12/2022, 09/27/2022, Additional history exists CKD PHOS USE SMARTSET 27726 11/13/202310/25, 03/16/2021, 03/15/2020, Additional history exists DTaP,Tdap,and [...] filedocumented as of this encounter Care Teams Handicapper Harness Racing Relationship Specialty Start Date End Date William Joseph MD [address] [place] [address] PCP - General Internal Medicine 03/18/12 documented as of this encounter
--- OUTSIDE RECORDS SUMMARY | 2023-01-29 04:59 | External Medical Summary | Summary of Care ---
Author Name Unknown Organization [facility] Address [address] [place] [address] Phone [phone] Care Team Providers Care Data Entry Supervisor Name Role Phone William Joseph MD Primary Care Provider + Reason for Visit * Reason Onset Date Comments Advice 01/02/2023 Encounter Details Date Type Department Care Team Description 01/02/2023 Telephone General Internal Medicine [facility] [place] [address] [facility] [place] [phone] William Joseph MD 200 [facility] [address] Advice Allergies No known active allergiesdocumented as of this encounter (statuses as of 01/08/2023) Medications Medication Sig Dispensed Refills Start Date [...] as of this encounter (statuses as of 01/08/2023) Active Problems Problem Noted Date Thoracic aortic [...] as of this encounter (statuses as of 01/08/2023) Resolved Problems Problem Noted Date Resolved Date Secondary hyperparathyroidism 08/10/2019 History of rheumatoid arthritis 09/04/2017 08/20/2018 History of rheumatoid arthritis 01/06/2016 07/27/2016 Kidney disease, chronic, stage III (GFR 30-59 ml /min) 08/09/2014 07/30/2017 Overview: Per CKD protocol #1 HTN, goal below 140/90 8 Kidney disease, chronic, stage III (GFR 30-59 ml /min) 03/24/2012 documented as of this encounter (statuses as of 01/08/2023) Immunizations Name Administration Dates Next Due COVID-19 [...] Office Visit Rheumatology Carlos Alberto Matthews MD [address] [employer] [place] [address] 06/13/2023 Office Visit Internal Medicine William Joseph MD [address] [facility] [place] [address] Health Maintenance Due Date Last Done Comments [...] Additional history exists CKD HGB USE SMARTSET 83731 11/13/202311/12, 11/12/2022, 09/27/2022, Additional history exists CKD PHOS USE SMARTSET 32666 11/13/202310/25, 03/16/2021, 03/15/2020, Additional history exists DTaP,Tdap,and [...] filedocumented as of this encounter Care Teams Data Entry Supervisor Relationship Specialty Start Date End Date William Joseph MD [address] [place] [id number] PCP - General Internal Medicine 03/18/12 documented as of this encounter
--- OUTSIDE RECORDS SUMMARY | 2023-01-29 05:00 | External Medical Summary | Summary of Care ---
Author Name Unknown Organization [facility] Address [address] [place] [address] Phone [phone] Care Team Providers Care Belt Back Operator Name Role Phone William Joseph MD Primary Care Provider + Reason for Visit * Reason Onset Date Comments Test Results 11/19/2022 Encounter Details Date Type Department Care Team Description 11/19/2022 Telephone General Internal Medicine [facility] [address] [facility] [place] [address] William Joseph MD 200 [place] [address] Test Results Allergies No known active allergiesdocumented as of this encounter (statuses as of 11/19/2022) Medications Medication Sig Dispensed Refills Start Date End Date Status Cholecalciferol (VITAMIN D3) 50 MCG (1999) Tablet Take 0.5 Tablets by mouth. Every 2 - 3 days 0 Active Benzonatate 100 MG Oral Capsule (Tessalon Perles)Indications:Co ugh Take by mouth 1 Capsule 2 times a day as needed for Cough. Do not cut, crush, or chew. 50 Capsule 2 09/27/2021 Active Fluticasone Propionate HFA 44 MCG/ACT Inhalation Aerosol (Flovent HFA)Indications:Bronc hiectasis (HCC) Inhale by mouth 1 Puff in the morning AND 1 Puff before bedtime. 10.6 g 5 02/13/2022 Active predniSONE 5 MG Oral Tablet (Deltasone)Indication s:H/O rheumatoid arthritis Take 1 Tablet (5 mg) by mouth in the morning. 30 Tablet 5 05/10/2022 Active Benazepril HCl 5 MG Oral Tablet (Lotensin)Indications :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) Take 1 Tablet by mouth in the morning. 90 Tablet 1 06/11/2022 Active amLODIPine Besy-Benazepril HCl 2.5-10 MG Oral Capsule (Lotrel)Indications:B enign hypertension 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) Take 1 Capsule by mouth in the morning. 90 Capsule 1 06/11/2022 Active Cyanocobalamin 1000 MCG/ML Injection Solution (Cyanocobalamin)Indic ations:Pernicious anemia inject 1ml into a large muscle every month 1 mL 4 10/18/2022 Active Citalopram Hydrobromide 20 MG Oral Tablet (CeleXA)Indications:M oderate major depression (HCC) 0.5 tablet by mouth once a day for 2 weeks then 1 tablet daily by mouth after that 30 Tablet 5 11/07/2022 Active Humira Pen 40 MG/0.4ML Subcutaneous Pen-injector Kit (Adalimumab) INJECT 40 MG (0.4 ML) UNDER THE SKIN EVERY 14 DAYS 2 Each 5 11/13/2022 Active documented as of this encounter (statuses as of 11/19/2022) Active Problems Problem Noted Date Thoracic aortic [...] as of this encounter (statuses as of 11/19/2022) Resolved Problems Problem Noted Date Resolved Date Secondary hyperparathyroidism 08/10/2019 History of rheumatoid arthritis 09/04/2017 08/20/2018 History of rheumatoid arthritis 01/06/2016 07/27/2016 Kidney disease, chronic, stage III (GFR 30-59 ml /min) 08/09/2014 07/30/2017 Overview: Per CKD protocol #1 HTN, goal below 140/90 8 Kidney disease, chronic, stage III (GFR 30-59 ml /min) 03/24/2012 documented as of this encounter (statuses as of 11/19/2022) Immunizations Name Administration Dates Next Due COVID-19 mRNA, LNP-s, No Pre serve, 2-Dose Series (MusiCares) 03/01/2021,08/03/2020,07/13/2020 Pneumococcal Conjugate Vacc, 13 Valent (Prevnar) [...] Telephone Encounter - Oksana Barksdale LPN - 11/19/2022 10:49 AM EDT See other TE as well * Telephone Encounter - Sandip Khoury CMA - 11/19/2022 10:35 AM EDT Called, left message for patient to return call. * Telephone Encounter - Sandip Khoury CMA - 11/19/2022 10:32 AM EDT ----- Message from William Joseph MD sent at 11/18/2022 3:31 PM EDT ----- Advanced arthritis bilaterally R>L. Have to wonder if has osteonecrosis (break down of bone due to lack of blood flow, sometimes prednisone can cause) I want him to see ortho about his pain to seewhat else can/needs to be done * Telephone Encounter - Sandip Khoury CMA - 11/19/2022 10:23 AM EDT ----- Message from William Joseph MD sent at 11/18/2022 4:25 PM EDT ----- 1. Not immune to hepatitis B, suggest vaccine given immunosuppressed with RA, given 0, 1 and 6 months 2. Gfr stable, potassium normalized, lft ok, no lyme disease. Lipids fine 3. Sed rate/crp markedly high.I wonder if from RA, hip issue and possible RA flare given he stoppedhis Humira. Please keep ortho visits (see xrays) and rheum visit for further evaul.Dr. Cassie WATTS 4. Platelets high, could be from inflammation, recheck 1 month 5. No paraprotein. documented in this encounter Plan of Treatment Upcoming Encounters Date Type Specialty Care Team Description 12/06/2022 Office Visit Rheumatology Carlos Alberto Matthews MD [address] [place], [place] [phone] 06/13/2023 Office Visit Internal Medicine William Joseph MD [address] [place] [address] Health Maintenance Due Date Last Done Comments Hepatitis B (1 of 3 - Risk 3-dose series) 2003 FOBT ANNUALLY,AGES 18-90 03/22/2017 03/22/2016, 09/26 Zoster Vaccines (2 of 2) 12/26/2020 10/31/2020, 12/25 COVID-19 Vaccine (4 - Booster for Pfizer series) 04/26/2021 03/01/2021, 08/03/2020, 07/13/2020 Depression, Most Recent Score >= 10 (will fire each visit until score < 10) 11/08/2022 11/07/2022 GFR 05/14/2023 11/12/2022, 0508/2022, 12/06/2021, Additional history exists Albumin/Creatinine Ratio 11/13/2023 023, 03/16/2021, 08/03/2016, Additional history exists CKD HGB USE SMARTSET 03277 11/13/202311/12, 11/12/2022, 09/27/2022, Additional history exists CKD PHOS USE SMARTSET 78767 11/13/202310/25, 03/16/2021, 03/15/2020, Additional history exists DTaP,Tdap,and Td Vaccines (2 - Td or Tdap) 01/10/2025 01/10/2015 Pneumococcal Vaccine: 65+ Years Completed 07/13/2015, 06/08/2013 Hepatitis C Screening Completed 03/03/2019 Influenza Vaccine (FLU shot) Completed , 05/02/2021, 03/15/2020, Additional history exists GARDASIL-HPV IMMUNIZATION SERIES Aged Out No longer eligible based on patient's age to complete this topic MENINGOCOCCAL (MENACTRA/MENVEO) Aged Out No longer eligible based on patient's age to complete this topic documented as of this encounter Medical Devices Not on filedocumented as of this encounter Care Teams Belt Back Operator Relationship Specialty Start Date End Date William Joseph MD [address] [place] [id number] PCP - General Internal Medicine 03/18/12 documented as of this encounter
--- OUTSIDE RECORDS SUMMARY | 2023-01-29 05:00 | External Medical Summary | Summary of Care ---
Author Name Unknown Organization [facility] Address [address] [place] [address] Phone [phone] Care Team Providers Care Mason Foreman/Superintendant Name Role Phone William Joseph MD Primary Care Provider + Reason for Visit * Reason Onset Date Comments Test Results 11/19/2022 Encounter Details Date Type Department Care Team Description 11/19/2022 Telephone General Internal Medicine [facility] [place] [address] William Joseph MD 200 [place] [address] Test Results Allergies No known active allergiesdocumented as of this encounter (statuses as of 11/20/2022) Medications Medication Sig Dispensed Refills Start Date [...] as of this encounter (statuses as of 11/20/2022) Active Problems Problem Noted Date Thoracic aortic [...] as of this encounter (statuses as of 11/20/2022) Resolved Problems Problem Noted Date Resolved Date Secondary hyperparathyroidism 08/10/2019 History of rheumatoid arthritis 09/04/2017 08/20/2018 History of rheumatoid arthritis 01/06/2016 07/27/2016 Kidney disease, chronic, stage III (GFR 30-59 ml /min) 08/09/2014 07/30/2017 Overview: Per CKD protocol #1 HTN, goal below 140/90 8 Kidney disease, chronic, stage III (GFR 30-59 ml /min) 03/24/2012 documented as of this encounter (statuses as of 11/20/2022) Immunizations Name Administration Dates Next Due COVID-19 mRNA, LNP-s, No Pre serve, 2-Dose Series (Mimoona) 03/01/2021,08/03/2020,07/13/2020 Pneumococcal Conjugate Vacc, 13 Valent (Prevnar) [...] as of this encounter Miscellaneous Notes * Addendum Note - Rosario Alvarez LPN - 11/20/2022 2:47 PM EDTAddended by: ROSARIO ALVAREZ on: 11/20/2022 02:47 PM Modules accepted: Orders * Telephone Encounter - Rosario Alvarez LPN - 11/20/2022 2:38 PM EDT Provider to address: NA Reason for Call: Test Results Contact: Telephone Call Contact Type: Test Results Outcome: Patient aware and verbalized understanding, will comply. Nurse visit appt scheduled for Hep B vaccine. Order pended. Please advise. Total Time including non face to face (minutes): 5 * Telephone Encounter - Oksana Barksdale LPN [...] Encounters Date Type Specialty Care Team Description 11/28/2022 Immunization/Injection Ancillary [place], [facility] Chiquita Faviola [address] [facility] [place] [address] 12/06/2022 Office Visit Rheumatology Carlos Alberto Matthews MD [address] [facility] [place] [address] 06/13/2023 Office Visit Internal Medicine William Joseph MD [address] [place] [address] Health Maintenance Due Date Last Done Comments Hepatitis B (1 of 3 - Risk 3-dose series) 2003 FOBT ANNUALLY,AGES 18-90 03/22/2017 03/22/2016, 09/26 Zoster Vaccines (2 of 2) 12/26/2020 10/31/2020, 12/25 COVID-19 Vaccine (4 - Booster for Pfizer series) 04/26/2021 03/01/2021, 08/03/2020, 07/13/2020 Depression, Most Recent Score >= 10 (will fire each visit until score < 10) 11/08/2022 11/07/2022 GFR 05/14/2023 11/12/2022, 05/0 08/2022, 12/06/2021, Additional history exists Albumin/Creatinine Ratio 11/13/2023 023, 03/16/2021, 08/03/2016, Additional history exists CKD HGB USE SMARTSET 56883 11/13/202311/12, 11/12/2022, 09/27/2022, Additional history exists CKD PHOS USE SMARTSET 00703 11/13/202310/25, 03/16/2021, 03/15/2020, Additional history exists DTaP,Tdap,and [...] filedocumented as of this encounter Care Teams Mason Foreman/Superintendant Relationship Specialty Start Date End Date William Joseph MD [address] [place] [address], [place] [address] PCP - General Internal Medicine 03/18/12 documented as of this encounter
--- OUTSIDE RECORDS SUMMARY | 2023-01-29 05:00 | External Medical Summary | Summary of Care ---
Author Name Unknown Organization [facility] Address [address] [place] [address] Phone [phone] Care Team Providers Care Prosthetic Makeup Designer Name Role Phone William Joseph MD Primary Care Provider + Reason for Referral * Precert (Within 10 days (routine)) - Pending Review Specialty Diagnoses / Procedures Referred By Contac t Referred To Contact Radiology Diagnoses Abnormal chest CT Procedures CT CHEST WO CONTRAST William Joseph MD [address] [place] [address] Referral ID Status Reason Start Date Expiration Date V isits Requested Visits Authorized [id number] Pending Review 02/21/2023 999 999 * Evaluate & Treat - Unlimited Visits (Within 10 days (routine)) - Pending Review Specialty Diagnoses / Procedures Referred By Contac t Referred To Contact Orthopaedic Surgery / Orthopedics Diagnoses Acute pain of right knee William Joseph MD [address] [place] [address] Referral ID Status Reason Start Date Expiration Date Visits Requested Visits Authorized [id number] Pending Review Specialty Services Required 11/18/2022 999 999 Question Answer Referral Priority Within 10 days (routine) What body part is the patient being seen for? Thigh/Knee What condition is the patient being seen for? Arthritis including related infection * Evaluate & Treat - Unlimited Visits (Within 3 days (urgent)) - Pending Review Specialty Diagnoses / Procedures Referred By Contac t Referred To Contact Orthopaedic Surgery / Orthopedics Diagnoses Acute pain of right knee William Joseph MD [address] [place] [address] Referral ID Status Reason Start Date Expiration Date Visits Requested Visits Authorized [id number] Pending Review Specialty Services Required 11/18/2022 999 999 Question Answer Referral Priority Within 3 days (urgent) What body part is the patient being seen for? Hip What condition is the patient being seen for? Arthritis including related infection Comments Right hip pain, see xray ?ostenecrosis? * (Within 10 days (routine)) - Pending Review Specialty Diagnoses / Procedures Referred By Suha mitchell Referred To Contact Radiology Diagnoses Thyroid nodule Procedures US HEAD AND NECK William Joseph MD [address] [place] [address] Referral ID Status Reason Start Date Expiration Date V isits Requested Visits Authorized [id number] Pending Review 11/07/2022 999 999 * Precert (Within 10 days (routine)) - Authorized Specialty Diagnoses / Procedures Referred By Suha mitchell Referred To Contact Radiology Diagnoses Bronchiectasis without complication (HCC) Chronic cough Procedures CT CHEST WO CONTRAST William Joseph MD [address] [place] [address] Referral ID Status Reason Start Date Expiration Date V isits Requested Visits Authorized [id number] Authorized Precert 11/12/2022 01/11/2023 999 999 Reason for Visit * Reason Comments Follow Up 6 month follow up. Annie rasmussen presents with concerns for weakness from spinal stenosis and neuropathy. Patient states for the past week he has been running a fever. He currently has a cough but states he has had this for 8 years now and states it is controlled with using his inhaler multiple times a day. 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)*; Primary osteoarthritis of right hip; Bronchiectasis without complication (HCC); Rheumatoid arthritis involving multiple sites with positive rheumatoid factor (HCC); Acute pain of right knee; Mixed hyperlipidemia; Pernicious anemia; MGUS (monoclonal gammopathy of unknown significance); Chronic neck pain; Immunity status testing; Chronic cough; Fever, unspecified fever cause; Moderate major depression (HCC); Thyroid nodule; Need for hepatitis B vaccination; Abnormal chest CT Allergies No known active allergiesdocumented as of this encounter (statuses as of 11/21/2022) Medications Medication Sig Dispensed Refills Start Date End Date Status Cholecalciferol (VITAMIN D3) 50 MCG (1999) Tablet Take 0.5 Tablets by mouth. Every 2 - 3 days 0 Active Benzonatate 100 MG Oral Capsule (Tessalon Perles)Indication s:Cough Take by mouth 1 Capsule 2 times a day as needed for Cough. Do not cut, crush, or chew. 50 Capsule 2 2 Active Fluticasone Propionate HFA 44 MCG/ACT Inhalation Aerosol (Flovent HFA)Indications:B ronchiectasis (HCC) Inhale by mouth 1 Puff in the morning AND 1 Puff before bedtime. 10.6 g 5 2 Active predniSONE 5 MG Oral Tablet (Deltasone)Indica tions:H/O rheumatoid arthritis Take 1 Tablet (5 mg) by mouth in the morning. 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 90 Capsule 1 3 Active Cyanocobalamin 1000 MCG/ML Injection Solution (Cyanocobalamin)I ndications:Pernic ious anemia inject 1ml into a large muscle every month 1 mL 4 3 Active Citalopram Hydrobromide 20 MG Oral Tablet (CeleXA)Indicatio ns:Moderate major depression (HCC) 0.5 tablet by mouth once a day for 2 weeks then 1 tablet daily by mouth after that 30 Tablet 5 3 Active Humira Pen 40 MG/0.4ML Subcutaneous Pen-injector Kit (Adalimumab) Inject 0.4 mL under the skin every 14 days. Dx Code M05.79, pt does not need a starter dose 0.8 mL 5 3 11/14/19 23 Discontinued methylPREDNISolon e 4 MG Oral Tablet Therapy Pack (Medrol Dosepack) follow package directions 21 Tablet 0 3 11/08/19 23 Discontinued(Pat ient preference/disco ntinuation) Gabapentin 300 MG Oral Capsule (Neurontin) Take 1 Capsule by mouth 2 times a day as needed (lt arm nubmness weakness). 60 Capsule 3 3 11/08/19 23 Discontinued(Pat ient preference/disco ntinuation) documented as of this encounter (statuses as of 11/21/2022) Active Problems Problem Noted Date Thoracic aortic [...] as of this encounter (statuses as of 11/21/2022) Resolved Problems Problem Noted Date Resolved Date Secondary hyperparathyroidism 08/10/2019 History of rheumatoid arthritis 09/04/2017 08/20/2018 History of rheumatoid arthritis 01/06/2016 07/27/2016 Kidney disease, chronic, stage III (GFR 30-59 ml /min) 08/09/2014 07/30/2017 Overview: Per CKD protocol #1 HTN, goal below 140/90 8 Kidney disease, chronic, stage III (GFR 30-59 ml /min) 03/24/2012 documented as of this encounter (statuses as of 11/21/2022) Immunizations Name Administration Dates Next Due COVID-19 mRNA, LNP-s, No Pre serve, 2-Dose Series (C3 Jian) 03/01/2021,08/03/2020,07/13/2020 Pneumococcal Conjugate Vacc, 13 Valent (Prevnar) [...] Not Answered Alcohol Use Standard Drinks/Week Comments Yes 5.8 [...] Sign Reading Time Taken Comments Blood Pressure 122/64 11/07/2022 4:35 PM EDT Pulse 59 11/07/2022 4:35 PM EDT Temperature 37 C (98.6 F) 11/07/2022 4:35 PM EDT Respiratory Rate - - Oxygen Saturation 97% 11/07/2022 4:35 PM EDT Inhaled Oxygen Concentration - - Weight 67.4 kg (148 lb 9.6 oz) 11/07/2022 4:35 P M EDT Height 167.6 cm (5' 6") 11/07/2022 4:35 PM EDT Body Mass Index 23.98 11/07/2022 4:35 PM EDT documented in this encounter Progress Notes * William Joseph MD - 11/07/2022 5:12 PM EDT Chief Complaint Patient presents with Follow Up 6 month follow up. Patient presents with concerns for weakness from spinal stenosis and neuropathy.Patient states for the past week he has been running a fever. He currently has a cough but states he has had this for 8 years now and states it is controlled with using his inhaler multiple times a day. SUBJECTIVE: Ignacio Garcia is a 77 year old male with PMH as below who presents for 6 month follow up of RA, HTNwith CKD 3, MGUS, but it has been 12 months since last OV. He has been feeling ill. C/o worsening right hip and knee pain for 5 weeks. Started after walk in park with son and . No falls, but was moving over uneven ground. No swelling in hip, but right knee swells at times. He also stopped Humira 5 weeks ago or more, didn't want to take anymore. Appetite is down as well for sometime, weight is20 lbs down in 1 year. He notes chronic cough stable, did have fever and sinus congestion 1 week ago, but this is better. He also had severe neck pain and left arm weakness last month, saw Dr. iNxon and dx with "spinal stenosis" given steroid, Neurontin and PT which made markedly better. Neck pain mild now and controlled with tylenol. No arm weakness or tingling now. Mood is also down for months, feels depressed lots of stress with one son who is drug addict. No SI, HI. Lives with who is taking care of him. Patient Active Problem List Diagnosis Code Encounter for therapeutic drug monitoring Z51.81 Pernicious anemia D51.0 Bronchiectasis (HCC) J47.9 Thoracic aortic aneurysm (HCC) I71.20 Benign hypertension with CKD (chronic kidney disease) stage III ([facility]) I12.9, N18.30 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 Bunion, left foot M21.612 Primary osteoarthritis of right hip M16.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 (HCC) M05.79 Mixed hyperlipidemia E78.2 Thyroid nodule 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 Ruptured extensor tendon of hand or wrist, left, initial encounter S66.812A Thoracic aortic aneurysm without rupture (HCC) I71.20 Current Outpatient Medications Medication Sig Dispense Refill Cholecalciferol (VITAMIN D3) 50 MCG (1999 [place]) Tablet Take 0.5 Tablets by mouth. Every 2 - 3 days Fluticasone Propionate HFA 44 MCG/ACT Inhalation Aerosol (Flovent HFA) Inhale by mouth 1 Puff in the morning AND 1 Puff before bedtime. 10.6 g 5 predniSONE 5 MG Oral Tablet (Deltasone) Take 1 Tablet (5 mg) by mouth in the morning. 30 Tablet5 Humira Pen 40 MG/0.4ML Subcutaneous Pen-injector Kit (Adalimumab) Inject 0.4 mL under the skin every 14 days. Dx Code M05.79, pt does not need a starter dose 0.8 mL 5 Benazepril HCl 5 MG Oral Tablet (Lotensin) Take 1 Tablet by mouth in the morning. 90 Tablet 1 amLODIPine Besy-Benazepril HCl 2.5-10 MG Oral Capsule (Lotrel) Take 1 Capsule by mouth in the morning. 90 Capsule 1 Cyanocobalamin 1000 MCG/ML Injection Solution (Cyanocobalamin) inject 1ml into a large muscle every month 1 mL 4 Citalopram Hydrobromide 20 MG Oral Tablet (CeleXA) 0.5 tablet by mouth once a day for 2 weeks then 1 tablet daily by mouth after that 30 Tablet 5 Benzonatate 100 MG Oral Capsule (Tessalon Perles) Take by mouth 1 Capsule 2 times a day as needed for Cough. Do not cut, crush, or chew. 50 Capsule 2 No current facility-administered medications for this visit. Review of patient's allergies indicates: No Known Allergies Health Maintenance Due Topic Date Due Hepatitis B (1 of 3 - Risk 3-dose series) Never done FOBT ANNUALLY,AGES 18-90 03/22/2017 Zoster Vaccines (2 of 2) 12/26/2020 Depression Screening, Annual for Pts 12 and Over 02/17/2021 COVID-19 Vaccine (4 - Booster for Pfizer series) 04/26/2021 Albumin/Creatinine Ratio 03/16/2022 CKD PHOS USE SMARTSET 69030 03/16/2022 ROS: CONSTITUTIONAL: as per hpi EYE: No recent significant change in vision and No eye pain, redness, discharge EARS: No ear pain, No drainage, No tinnitus or vertigo and No recent change in hearing PULMONARY: No wheezing, No rales, No shortness of breath and No recent change in breathing CARDIOVASCULAR: No chest pain, No shortness of breath, No dyspnea on exertion, No orthopnea, No paroxysmal nocturnal dyspnea, No edema, No palpitations and No syncope GASTROINTESTINAL: No abdominal pain, No change in bowel habits, No significant heartburn, No significant change in appetite, No nausea, vomiting, diarrhea, or constipation, No hematemesis, No blood in stools or black tarry stools, No abdominal bloating or early satiety and No dysphagia ALL OTHER SYSTEMS NEGATIVE I reviewed social, PMH, PSH, and family history and updated where needed. 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 Employer: [employer] Tobacco Use Smoking status: Former Packs/day: 2.00 Years: 35.00 Pack years: 70.00 Types: Cigarettes Quit date: 06/25/1990 Years since quittin.3 Smokeless tobacco: Never Substance and Sexual Activity Alcohol use: Yes Alcohol/week: 5.8 standard drinks Types: 7 Mixed drink(s) containing 1.5 shots of alcohol per week Comment: occassional Drug use: No Sexual activity: Yes Partners: Male Other Topics Concern Service Not Asked Blood Transfusions Not Asked Caffeine Concern Not Asked Occupational Exposure Not Asked Hobby Hazards Not Asked Sleep Concern Not Asked Stress Concern Not Asked Weight Concern Not Asked Special Diet Not Asked Back Care Not Asked Exercise Not Asked Bike Helmet Not Asked Seat Belt No Self-Exams Not Asked Social History Narrative Not on file Social Determinants of Health Financial Resource Strain: [...] Family History Problem Relation Age of Onset Other (osteoarthritis [Other]) Mother Hypertension Mother OBJECTIVE: PHYSICAL EXAM: BP 122/64 | Pulse 59 | Temp 37 C (98.6 F) | Ht 1.676 m (5' 6") | Wt 67.4 kg (148 lb 9.6 oz) | SpO2 97% | BMI 23.98 kg/m | BSA 1.77 m General: alert, healthy and no distress Head: Normocephalic, No masses, lesions, or abnormalities Eye Exam: conjunctiva are pink and non-injected, sclera clear Ears: External ears normal, Canals clear, TM's Normal Heart: regular rate & rhythm, no murmur, no gallops, PMI non-displaced, S-1 normal and S-2 normal Lungs: normal respiratory rate and rhythm, lungs clear to auscultation Abdomen: abdomen soft, non-tender, normal bowel sounds and no masses or organomegaly Extremities: no edema, no clubbing, no cyanosis, right knee pain medial side w/o redness or warmth,pain lateral right hip Neuro Exam: alert with fluent speech, gait normal Psych: normal affect, no flight of ideas or tangential thought, good eye contact, no pressured speech Back: prominent tailbone, but no cyst felt (he asked me to check) 09/28/22 xray: IMPRESSION Moderate degenerative changes. 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) (primary encounter diagnosis) M16.11 Primary osteoarthritis of right hip J47.9 Bronchiectasis without complication (HCC) M05.79 Rheumatoid arthritis involving multiple sites with positive rheumatoid factor (HCC) M25.561 Acute pain of right knee E78.2 Mixed hyperlipidemia D51.0 Pernicious anemia D47.2 MGUS (monoclonal gammopathy of unknown significance) M54.2,G89.29 Chronic neck pain Z01.84 Immunity status testing R05.3 Chronic cough R50.9 Fever, unspecified fever cause 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HCC) E04.1 Thyroid nodule PLAN: 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 Will also check lyme Bronchiectasis without complication (HCC) - CT CHEST WO CONTRAST Chronic cough stable Fever resolved, but will let me know if returns (perhaps had viral sinosusitis/uri) Again urged CT which he declined in past, now agreeable, expressed concern for pain, weight loss Rheumatoid arthritis involving multiple sites with positive rheumatoid factor (HCC) - ERYTHROCYTE SEDIMENTATION RATE (ESR); Future; Expected date: 11/07/2022 - CRP (INFLAMMATORY MARKER); Future; Expected date: 11/07/2022 Has f/u with rheum May need to get back on Humira Acute pain of right knee - XR KNEE 4 OR MORE VIEWS; Future; Expected date: 11/07/2022 - LYME DISEASE ANTIBODY SCREEN WITH REFLEX TO CONFIRMATION; Future; Expected date: 11/07/2022 As above Mixed hyperlipidemia - COMPREHENSIVE METABOLIC PANEL; Future; Expected date: 11/07/2022 - LIPID PANEL WITH DIRECT LDL IF TG IS HIGH; Future; Expected date: 11/07/2022 recheck Pernicious anemia - VITAMIN B12; Future; Expected date: 11/07/2022 Cont injection MGUS (monoclonal gammopathy of unknown significance) - SERUM PROTEIN ELECTROPHORESIS REFLEX PROFILE; Future; Expected date: 11/07/2022 - URINE IMMUNOFIXATION, BENCE PEREZ PROTEIN, RANDOM URINE; Future; Expected date: 11/07/2022 Check labs Chronic neck pain Improved Discussed mri, but will hold given marked improvement Immunity status testing - HEPATITIS B SURFACE ANTIBODY; Future; Expected date: 11/07/2022 Chronic cough - CT CHEST WO CONTRAST - XR CHEST 2 VIEWS As above Fever, unspecified fever cause - XR CHEST 2 VIEWS Resolved As above Moderate major depression (HCC) - Citalopram Hydrobromide 20 MG Oral Tablet (CeleXA); 0.5 tablet by mouth once a day for 2 weeks then 1 tablet daily by mouth after that Discussed med, will try The potential side effects of this medication have been discussed with the patient. Call if any significant problems with these are experienced. Thyroid nodule - US HEAD AND NECK; Future; Expected date: 11/07/2022 Never did, will reschedule I spent a total of 40-54 minutes (exact time 41 mins) on the date of service in preparation, delivery, and documentation of the care provided to Ignacio Garcia excluding any time spent in the performance of separately billed services. Follow Up: Return in about 3 months (around 02/07/2023), or if symptoms worsen or fail to improve, for Return with Physician. | For: Return with Physician | Check-out note: Ok for private spot William Joseph MD documented in this encounter Nursing Notes * Sandip Khoury CMA - 11/07/2022 4:35 PM EDT Chief Complaint Patient presents with Follow Up 6 month follow up. Patient presents with concerns for weakness from spinal stenosis and neuropathy.Patient states for the past week he has been running a fever. He currently has a cough but states he has had this for 8 years now and states it is controlled with using his inhaler multiple times a day. documented in this encounter Miscellaneous Notes * Addendum Note - William Joseph MD - 11/21/2022 11:31 AM EDTAddended by: WILLIAM JOSEPH on: 11/21/2022 11:31 AM Modules accepted: Orders * Addendum Note - William Joseph MD - 11/18/2022 4:26 PM EDTAddended by: WILLIAM JOSEPH on: 11/18/2022 04:26 PM Modules accepted: Orders * Addendum Note - William Joseph MD - 11/18/2022 3:33 PM EDTAddended by: WILLIAM JOSEPH on: 11/18/2022 03:33 PM Modules accepted: Orders * Addendum Note - William Joseph MD - 11/18/2022 3:31 PM EDTAddended by: WILLIAM JOSEPH on: 11/18/2022 03:31 PM Modules accepted: Orders documented in this encounter Plan of Treatment Upcoming Encounters Date Type Specialty Care Team Description 11/28/2022 Immunization/Injection [place]illary [place], Nurse Ricky Salmeron [address] [place] [id number] 12/06/2022 Office Visit Rheumatology Carlos Alberto Matthews MD [address] [place] [address] 06/13/2023 Office Visit Internal Medicine William Joseph MD [address] [facility] [place] [address] Scheduled Orders Name Type Priority Associated Diagnoses Orde r Schedule XR CHEST 2 VIEWS Medical Imaging Routine Chronic cough Fever, unspecified fever cause Ordered: 11/07/2022 US HEAD AND NECK Medical Imaging Routine Thyroid nodule Expected: 11/07/2022, Expires: 12/08/2023 CT CHEST WO CONTRAST Medical Imaging Routine Abnormal chest CT Expected: 02/21/2023, Expires: 12/22/2023 Scheduled Referrals Name Type Priority Associated Diagnoses Order Schedule ORTHOPAEDICS REFERRAL OP Referral Within 3 days (urgent) Acute pain of right knee Ordered: 11/18/2022 ORTHOPAEDICS REFERRAL OP Referral Within 10 days (routine) Acute pain of right knee Ordered: 11/18/2022 Health Maintenance Due Date Last Done Comments [...] Additional history exists CKD HGB USE SMARTSET 36056 11/13/202311/12, 11/12/2022, 09/27/2022, Additional history exists CKD PHOS USE SMARTSET 76124 11/13/202310/25, 03/16/2021, 03/15/2020, Additional history exists DTaP,Tdap,and [...] Procedure Name Priority Date/Time Associated Diagnosis Comments CT CHEST WO CONTRAST Routine 11/14/2022 2:57 PM EDT Bronchiectasis without complication (HCC) Chronic cough documented in this encounter Results * CT CHEST WO CONTRAST (11/14/2022 2:57 PM EDT) Anatomical Region Laterality Modality Chest, Body, Cardio Computed Bakari ography 11/14/2022 2:53 PM EDT Impressions 11/19/2022 3:02 PM EDT IMPRESSION: 1. Extensive predominantly ground-glass nodularity with tree-in-bud [...] multiple internal nodules. Consider future thyroid ultrasound. COMMENTS: Consistent with the [employer]'s Incidental Findings Committee white paper (J Am Nikita Radiol 2018): Any incidental renal lesion less than 1 cm or classified as too small to characterize, or any incidental cystic renal lesion characterized as simple-appearing, is likely benign. No follow-up imaging is recommended for these lesions per consensus recommendations based on imaging criteria. THIS DOCUMENT HAS BEEN ELECTRONICALLY SIGNED BY SANDY FINN MD Narrative 11/19/2022 3:02 PM EDT PROCEDURE INFORMATION: Exam: CT Chest Without Contrast; Diagnostic Exam date and time: 11/14/2022 2:53 PM Age: 77 years old Clinical indication: Bronchiectasis, uncomplicated; Chronic cough; Additional info: Antoine, h/o bronchiectasis TECHNIQUE: Imaging protocol: Diagnostic computed tomography of the chest without contrast. Total images: 1374 Radiation optimization: All CT scans at this facility use at least one of these dose optimization techniques: automated exposure control; mA and/or kV adjustment per patient size (includes targeted exams where dose is matched to clinical indication); or iterative reconstruction. Other technique: Coronary artery calcification. REPORTING DATA: Count of CT and Cardiac NM exams in prior 12 months: This patient has received 0 known CTs and 0 known cardiac nuclear medicine studies in the 12 months prior to the current study. COMPARISON: DX XR C SPINE 4-5 VIEWS 09/28/2022 3:07 PM FINDINGS: Thyroid: Enlarged heterogeneous thyroid gland especially right lobe which extends into the right superior mediastinum. Likely multiple nodules within difficult individually characterize. Lungs: Advanced emphysema most pronounced upper lobes Numerous bulla/blebs upper lobes. Extensive ground-glass nodularity lower lobes with tree-in-bud configuration. Some associated bronchiectasis lower lobes. Scattered additional small pulmonary nodules. For example 5 mm pulmonary nodule right upper lobe image 131, series 10. 6 mm pulmonary nodule medial right lower lobe image 207, series 10. Pleural spaces: Unremarkable. No pneumothorax. No pleural effusion. Heart: Unremarkable. No cardiomegaly. No pericardial effusion. Lymph nodes: Bilateral somewhat bulky axillary lymph nodes up to 1.2 cm in short axis. Vasculature: Distended ascending thoracic aorta 4 cm. Gallbladder and bile ducts: Partially imaged, probable distended gallbladder. Suspected gallstones Kidneys and ureters: Left renal cysts. Bones/joints: Flowing anterior thoracic spine osteophytes. Soft tissues: Unremarkable. Coronary artery calcification Procedure Note Sandy Finn MD - 11/19/2022 PROCEDURE INFORMATION: Exam: CT Chest Without Contrast; Diagnostic Exam date and time: 11/14/2022 2:53 PM Age: 77 years old Clinical indication: Bronchiectasis, uncomplicated; Chronic cough;Additional info: Antoine, h/o bronchiectasis TECHNIQUE: Imaging protocol: Diagnostic computed tomography of the chest withoutcontrast. Total images: 1374 Radiation optimization: All CT scans at this facility use at least one ofthese dose optimization techniques: automated exposure control; mA and/or kV adjustment per patient size (includes targeted exams where dose is matchedto clinical indication); or iterative reconstruction. Other technique: Coronary artery calcification. REPORTING DATA: Count of CT and Cardiac NM exams in prior 12 months: This patient hasreceived 0 known CTs and 0 known cardiac nuclear medicine studies in the 12 monthsprior to the current study. COMPARISON: DX XR C SPINE 4-5 VIEWS 09/28/2022 3:07 PM FINDINGS: Thyroid: Enlarged heterogeneous thyroid gland especially right lobe which extends into the right superior mediastinum. Likely multiple noduleswithin difficult individually characterize. Lungs: Advanced emphysema most pronounced upper lobes Numerous bulla/blebs upper lobes. Extensive ground-glass nodularity lower lobes [id number] configuration. Some associated bronchiectasis lower lobes. Scatteredadditional small pulmonary nodules. For example 5 mm pulmonary nodule right upperlobe image 131, series 10. 6 mm pulmonary nodule medial right lower lobe , series 10. Pleural spaces: Unremarkable. No pneumothorax. No pleural effusion. Heart: Unremarkable. No cardiomegaly. No pericardial effusion. Lymph nodes: Bilateral somewhat bulky axillary lymph nodes up to 1.2 cm in short axis. Vasculature: Distended ascending thoracic aorta 4 cm. Gallbladder and bile ducts: Partially imaged, probable distendedgallbladder. Suspected gallstones Kidneys and ureters: Left renal cysts. Bones/joints: Flowing anterior thoracic spine osteophytes. Soft tissues: Unremarkable. Coronary artery calcification IMPRESSION IMPRESSION: 1. Extensive predominantly ground-glass nodularity with tree-in-bud morphology most pronounced lower lungs. Likely inflammatory/infectious. Correlate for atypical infections. Minimal associated bronchiectasis. Short-term follow-up necessary to assure clearing 2. Some additional more solid small lung nodularity which could also be inflammatory/infectious however close follow-up CT in 3 months suggestedto assure stability/resolution. 3. Advanced emphysema. 4. Bilateral slightly bulky axillary lymphadenopathy, nonspecific.Correlate clinically. 5. See above for other details. 6. Heterogeneous enlarged right lobe of thyroid with suspected multiple internal nodules. Consider future thyroid ultrasound. COMMENTS: Consistent with the [employer]'s Incidental Findings Committee white paper (J Am Nikita Radiol 2018): Any incidental renal lesionless than 1 cm or classified as too small to characterize, or any incidentalcystic renal lesion characterized as simple-appearing, is likely benign. Nofollow-up imaging is recommended for these lesions per consensus recommendationsbased on imaging criteria. THIS DOCUMENT HAS BEEN ELECTRONICALLY SIGNED BY SANDY FINN MD William Joseph MD RAD CT * URINE IMMUNOFIXATION, BENCE PEREZ PROTEIN, RANDOM URINE (11/12/2022 2:46 PM EDT) Protein, Random Urine 54 mg/dL 11/14/2022 10:52 AM EDT [facility] Immunofixation Interpretation No monoclonal free light chains present (Bence Perez protein), in a background of glomerular proteinuria. 11/14/2022 10:52 AM EDT [facility] Urine Non-blood Collection / Unknown 11/12/2022 2:46 PM EDT 11/12/2022 2:53 PM EDT William Joseph MD LAB URINE ORDERA BLES [facility] [address] [place] [address] * (ABNORMAL) ALBUMIN / CREATININE RATIO, URINE (11/12/2022 2:46 PM EDT) Albumin, Random Urine 11.30 mg/dL 11/13/2022 12:17 AM EDT [facility] Creatinine, Random Urine 277 mg/dL 11/13/2022 12:17 AM EDT [facility] Albumin / Creatinine Ratio, Urine 41(H) <30 mg/g Creat 11/13/2022 12:17 AM EDT [facility] Urine Urine specimen obtained by clean catch procedure / Unknown Non-blood Collection / Unknown 11/12/2022 2:46 PM EDT 11/12/2022 2:46 PM EDT Narrative [facility] - 11/13/2022 12:17 AM EDT Normal: <30 mg/g creatinine High: 30-300 mg/g creatinine Very High: >300 mg/g creatinine Nephrotic: >2200 mg/g creatinine William Joseph MD LAB URINE ORDERA BLES Performing Organization Address [facility] de Phone Number LABORATORY [address] [address] * HEPATITIS B SURFACE ANTIBODY (11/12/2022 2:41 PM EDT) [facility] Hepatitis B Surface Antibody, Quantitative <3.5 mIU/mL 11/13/2022 4:47 AM EDT [facility] Hepatitis B Surface Antibody, Qualitative Negative 11/13/2022 4:47 AM EDT [facility] Hepatitis B Surface Antibody, Interpretation NOT immune to Hepatitis B Virus 11/13/2022 4:47 AM EDT [facility] Comment: POSITIVE: >=11.5 mIU/mL INDETERMINATE: 8.5-<11.5 mIU/mL NEGATIVE: <8.5 mIU/mL Blood Venous blood specimen / Unknown Venipuncture / Unknown 11/12/2022 2:41 PM EDT 11/12/2022 2:41 PM EDT William Joseph MD LAB BLOOD ORDERA BLES Performing Organization Address [facility] de Phone Number LABORATORY [address] [address] * (ABNORMAL) SERUM PROTEIN ELECTROPHORESIS REFLEX PROFILE (11/12/2022 2:41 PM EDT) [facility] Protein 7.8 6.0 - 8.3 g/dL 11/14/2022 10:52 AM EDT [facility] Albumin 2.84(L) 3.30 - 4.40 g/dL 11/14/2022 10:52 AM EDT [facility] Alpha-1 Globulin 0.45(H) 0.10 - 0.30 g/dL 11/14/2022 10:52 AM EDT [facility] Alpha-2 Globulin 1.23(H) 0.60 - 1.00 g/dL 11/14/2022 10:52 AM EDT [facility] Beta-Globulin 1.09 0.80 - 1.30 g/dL 11/14/2022 10:52 AM EDT [facility] Gamma-Globulin 2.19(H) 0.70 - 1.70 g/dL 11/14/2022 10:52 AM EDT [facility] Electrophoresis Interpretation No paraprotein detected. There is a polyclonal increase in the gamma fraction. This finding may be seen in association with chronic inflammation, infection, chronic liver disease or collagen disorders. 11/14/2022 10:52 AM EDT [facility] Blood Venous blood specimen / Unknown Venipuncture / Unknown 11/12/2022 2:41 PM EDT 11/12/2022 2:41 PM EDT William Joseph MD LAB BLOOD ORDERA BLES Performing Organization Address [facility] de Phone Number [facility] [address] [place] [address] * VITAMIN B12 (11/12/2022 2:41 PM EDT) [facility] Vitamin B12 1,244 232 - 1,245 pg/mL 11/13/2022 5:11 AM EDT [facility] Blood Venous blood specimen / Unknown Venipuncture / Unknown 11/12/2022 2:41 PM EDT 11/12/2022 2:41 PM EDT William Joseph MD LAB BLOOD ORDERA BLES Performing Organization Address [facility] de Phone Number [facility] [address] [place] [address] * (ABNORMAL) CRP (INFLAMMATORY MARKER) (11/12/2022 2:41 PM EDT) [facility] CRP (Inflammatory Marker) 138(H) <=5 mg/L 11/13/2022 4:38 AM EDT [facility] Blood Venous blood specimen / Unknown Venipuncture / Unknown 11/12/2022 2:41 PM EDT 11/12/2022 2:41 PM EDT William Joseph MD LAB BLOOD ORDERA BLES Performing Organization Address [facility] de Phone Number [facility] [address] [place] [address] * (ABNORMAL) ERYTHROCYTE SEDIMENTATION RATE (ESR) (11/12/2022 2:41 PM EDT) Pathologist [facility] ESR 97(H) <20 mm/hour 11/13/2022 1:26 AM EDT [facility] Blood Venous blood specimen / Unknown Venipuncture / Unknown 11/12/2022 2:41 PM EDT 11/12/2022 2:41 PM EDT William Joseph MD LAB BLOOD ORDERA BLES Performing Organization Address [facility] de Phone Number [facility] [address] [place] [address] * PHOSPHORUS (11/12/2022 2:41 PM EDT) Pathologist [facility] Phosphorus 3.9 2.5 - 4.8 mg/dL 11/13/2022 4:38 AM EDT [facility] Blood Venous blood specimen / Unknown Venipuncture / Unknown 11/12/2022 2:41 PM EDT 11/12/2022 2:41 PM EDT William Joseph MD LAB BLOOD ORDERA BLES Performing Organization Address [facility] de Phone Number [facility] [address] [place] [address] * LIPID PANEL WITH DIRECT LDL IF TG IS HIGH (11/12/2022 2:41 PM EDT) Triglycerides 115 <=174 mg/dL 11/13/2022 4:38 AM EDT [facility] Comment: Triglyceride Reference Ranges (mg/dL): <150 Acceptable 150-174 Borderline high 175-499 High >=500 Very high Cholesterol 178 <200 mg/dL 11/13/2022 4:38 AM EDT [facility] Comment: Total Cholesterol Reference Ranges (mg/dL): <200 Desirable 200-239 Borderline high >=240 High HDL Cholesterol 41 >39 mg/dL 4:38 AM EDT [facility] Comment: HDL Cholesterol Reference Ranges (mg/dL): >=60 High (Desirable) <50 Low (Undesirable) For Females <40 Low (Undesirable) For Males Non-HDL Cholesterol 137 <=159 mg/dL 11/13/2022 4:38 AM EDT [facility] Comment: Non-HDL Cholesterol Reference Range (mg/dL): <100 Target level for high risk ASCVD patient <130 Optimal for general population 130-159 Near optimal for general population 160-189 Borderline High 190-219 High >=220 Very High LDL Cholesterol 114 <=129 mg/dL 11/13/2022 4:38 AM EDT [facility] Comment: LDL Cholesterol Reference Ranges (mg/dL): <70 Target level for high risk ASCVD patient <100 Optimal for general population 100-129 Near optimal for general population 130-159 Borderline high 160-189 High >=190 Very high Blood Venous blood specimen / Unknown Venipuncture / Unknown 11/12/2022 2:41 PM EDT 11/12/2022 2:41 PM EDT William Joseph MD LAB BLOOD ORDERA BLES [facility] [address] [place] [address] * (ABNORMAL) COMPREHENSIVE METABOLIC PANEL (11/12/2022 2:41 PM EDT) BUN 25(H) 6 - 20 mg/dL 11/12/2022 3:49 PM EDT [facility] 57-10 Creatinine 1.4(H) 0.6 - 1.2 mg/dL 11/12/2022 3:49 PM EDT [facility] 57-10 Estimated Glomerular Filtration Rate 51(L) >=60 mL/min 11/12/2022 3:49 PM EDT [facility] 57-10 Comment:eGFR is calculated b ased on the CKD-EPI 2020 equation Sodium 137 135 - 146 mmol/L 11/12/2022 3:49 PM EDT [facility] 57-10 Potassium 5.1 3.5 - 5.1 mmol/L 11/12/2022 3:49 PM EDT [facility] 57-10 Chloride 99 98 - 107 mmol/L 11/12/2022 3:49 PM EDT [facility] 57-10 CO2 24 22 - 32 mmol/L 11/12/2022 3:49 PM EDT [facility]-10 Anion Gap 14 7 - 15 mmol/L 11/12/2022 3:49 PM EDT [facility] 57-10 Glucose 94 70 - 120 mg/dL 11/12/2022 3:49 PM EDT [facility] 57[facility]10 Albumin 3.7(L) 3.8 - 5.0 g/dL 11/12/2022 3:49 PM EDT [facility] 57-10 AST 14 10 - 50 U/L 11/12/2022 3:49 PM EDT [facility] 57-10 Alkaline Phosphatase 71 35 - 130 U/L 11/12/2022 3:49 PM EDT [facility] 57-10 Bilirubin, Total 0.4 <=1.2 mg/dL 11/12/2022 3:49 PM EDT [facility] [place]10 Calcium 10.1 8.4 - 10.2 mg/dL 11/12/2022 3:49 PM EDT [facility]10 Protein 8.1 6.0 - 8.3 g/dL 11/12/2022 3:49 PM EDT [facility] 57-10 ALT 10 10 - 50 U/L 11/12/2022 3:49 PM EDT [facility] 57-10 Blood Venous blood specimen / Unknown Venipuncture / Unknown 11/12/2022 2:41 PM EDT 11/12/2022 2:41 PM EDT William Joseph MD LAB BLOOD ORDERA BLES [facility]10 [address] [facility] [place] [address] * XR KNEE 4 OR MORE VIEWS (11/12/2022 2:33 PM EDT) Anatomical Region Laterality Modality Knee, Lower Extremity Computed R adiography 11/12/2022 2:47 PM EDT Impressions 11/16/2022 2:59 PM EDT IMPRESSION: Advanced osteoarthritis of the right knee predominantly involving the medial compartment of the knee joint THIS DOCUMENT HAS BEEN ELECTRONICALLY SIGNED BY ELISSA VELÁSQUEZ MD Narrative 11/16/2022 2:59 PM EDT PROCEDURE INFORMATION: Exam: XR Right Knee Exam date and time: 11/12/2022 2:47 PM Age: 77 years old Clinical indication: Pain in right knee; Additional info: Right knee pain TECHNIQUE: Imaging protocol: Radiologic exam of the right knee. Views: 4 or more views. COMPARISON: DX XR KNEE 3 VIEWS 12/04/2021 10:37 AM FINDINGS: Bones/joints: Marked narrowing the medial compartment of the knee joint with Genu varus deformity. Spurring of the tibial spines. Vascular calcifications noted in the distal thigh and popliteal fossa. Narrowing of the patellofemoral joint. Trace amount of fluid present in the suprapatellar bursa. Marginal osteophytes border the patellofemoral joint. Soft tissues: Normal. Procedure Note Elissa Velásquez MD - 11/16/2022 PROCEDURE INFORMATION: Exam: XR Right Knee Exam date and time: 11/12/2022 2:47 PM Age: 77 years old Clinical indication: Pain in right knee; Additional info: Right knee pain TECHNIQUE: Imaging protocol: Radiologic exam of the right knee. Views: 4 or more views. COMPARISON: DX XR KNEE 3 VIEWS 12/04/2021 10:37 AM FINDINGS: Bones/joints: Marked narrowing the medial compartment of the knee jointwith Genu varus deformity. Spurring of the tibial spines. Vascularcalcifications noted in the distal thigh and popliteal fossa. Narrowing of thepatellofemoral joint. Trace amount of fluid present in the suprapatellar bursa. Marginal osteophytes border the patellofemoral joint. Soft tissues: Normal. IMPRESSION IMPRESSION: Advanced osteoarthritis of the right knee predominantly involving themedial compartment of the knee joint THIS DOCUMENT HAS BEEN ELECTRONICALLY SIGNED BY ELISSA VELÁSQUEZ MD William Joseph MD RADIOLOGY (RAD Elise AMIN) * XR HIP UNILAT 2-3 VIEWS INCLUDING AP PELVIS (11/12/2022 2:33 PM EDT) Anatomical Region Laterality Modality Lower Extremity, Hip, Pelvis Com puted Radiography 11/12/2022 2:43 PM EDT Impressions 11/16/2022 3:01 PM EDT IMPRESSION: Advanced osteoarthritis both hips right side greater than left. Underlying osteonecrosis should be considered of the right femoral head THIS DOCUMENT HAS BEEN ELECTRONICALLY SIGNED BY ELISSA VELÁSQUEZ MD Narrative 11/16/2022 3:01 PM EDT PROCEDURE INFORMATION: Exam: XR Right Hip Exam date and time: 11/12/2022 2:43 PM Age: 77 years old Clinical indication: Unilateral primary osteoarthritis, right hip; Additional info: Right hip pain worsening TECHNIQUE: Imaging protocol: Radiologic exam of the right hip. Views: 2 or 3 views hip with pelvis when performed. COMPARISON: No relevant prior studies available. FINDINGS: Bones/joints: Severe narrowing of the right hip joint [...] Degenerative changes noted in the lumbar spine. Soft tissues: Unremarkable. Intraperitoneal space: Vascular calcifications present in the pelvis. Procedure Note Elissa Velásquez MD - 11/16/2022 PROCEDURE INFORMATION: Exam: XR Right Hip Exam date and time: 11/12/2022 2:43 PM Age: 77 years old Clinical indication: Unilateral primary osteoarthritis, right hip;Additional info: Right hip pain worsening TECHNIQUE: Imaging protocol: Radiologic exam of the right hip. Views: 2 or 3 views hip with pelvis when performed. COMPARISON: No relevant prior studies available. FINDINGS: Bones/joints: Severe narrowing of the right hip joint with subchondral sclerosis and cyst formation on both sides of the hip joint superiorly.Mild superolateral subluxation of the right hip. Moderate to severe narrowing superior aspect left hip joint with geode formation and sclerosis on bothsides of the left hip joint superiorly. Marginal osteophytes border the left hip joint. Degenerative changes noted in the lumbar spine. Soft tissues: Unremarkable. Intraperitoneal space: Vascular calcifications present in the pelvis. IMPRESSION IMPRESSION: Advanced osteoarthritis both hips right side greater than left.Underlying osteonecrosis should be considered of the right femoral head THIS DOCUMENT HAS BEEN ELECTRONICALLY SIGNED BY ELISSA VELÁSQUEZ MD William Joseph MD RADIOLOGY (RAD G ENERAL) documented in this encounter Visit Diagnoses Diagnosis 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)- Primary Benign hypertensive kidney disease with chronic kidney disease stage I through stage IV, or unspecified Primary osteoarthritis of right hip Primary localized osteoarthrosis, pelvic region and thigh Bronchiectasis without complication (HCC) Bronchiectasis without acute exacerbation Rheumatoid arthritis involving multiple sites with positive rheumatoid factor (HCC) Acute pain of right knee Mixed hyperlipidemia Pernicious anemia MGUS (monoclonal gammopathy of unknown significance) Monoclonal paraproteinemia Chronic neck pain Cervicalgia Immunity status testing Antibody response examination Chronic cough Cough Fever, unspecified fever cause Moderate major depression (HCC) Major depressive disorder, single episode, moderate Thyroid nodule Nontoxic uninodular goiter Need for hepatitis B vaccination Need for prophylactic vaccination and inoculation against viral hepatitis Abnormal chest CT Nonspecific (abnormal) findings on radiological and other examination of other intrathoracic organs Primary osteoarthritis of right hip Primary localized osteoarthrosis, pelvic region and thigh Acute pain of right knee documented in this encounter Care Teams Prosthetic Makeup Designer Relationship Specialty Start Date End Date William Joseph MD [address] [place] [id number] PCP - General Internal Medicine 03/18/12 documented as of this encounter
--- OUTSIDE RECORDS SUMMARY | 2023-01-29 05:00 | External Medical Summary | Summary of Care ---
Author Name Unknown Organization [facility] Address [address] [place] [address] Phone [phone] Care Team Providers Care Office Auditor Name Role Phone William Joseph MD Primary Care Provider + Reason for Visit * Reason Onset Date Comments Order Request 11/26/2022 Nebulizer and mcallister pplies Encounter Details Date Type Department Care Team Description 11/26/2022 Telephone Pulmonary Medicine, [facility] [place] [address] Noble Cervantes MD [address], [place] [id number] Order Request (Nebulizer and supplies) Allergies No known active allergiesdocumented as of this encounter (statuses as of 11/26/2022) Medications Medication Sig Dispensed Refills Start Date [...] after that 30 Tablet 5 11/07/2022 Active Additional Information Patient not taking.Reported on 11/23/2022 Humira Pen 40 MG/0.4ML Subcutaneous Pen-injector Kit (Adalimumab) INJECT 40 MG (0.4 ML) UNDER THE SKIN EVERY 14 DAYS 2 Each 5 11/13/2022 Active Azithromycin 250 MG Oral Tablet (Zithromax) Take 2 tabs by mouth on the first day, then 1 tab daily on days two through five 6 Tablet 0 11/21/2022 3 Active Nebulizer/Tubing/M outhpiece KitIndications:Bro nchiectasis with acute [...] as of this encounter (statuses as of 11/26/2022) Active Problems Problem Noted Date Thoracic aortic [...] as of this encounter (statuses as of 11/26/2022) Resolved Problems Problem Noted Date Resolved Date Secondary hyperparathyroidism 08/10/2019 History of rheumatoid arthritis 09/04/2017 08/20/2018 History of rheumatoid arthritis 01/06/2016 07/27/2016 Kidney disease, chronic, stage III (GFR 30-59 ml /min) 08/09/2014 07/30/2017 Overview: Per CKD protocol #1 HTN, goal below 140/90 8 Kidney disease, chronic, stage III (GFR 30-59 ml /min) 03/24/2012 documented as of this encounter (statuses as of 11/26/2022) Immunizations Name Administration Dates Next Due COVID-19 [...] encounter Miscellaneous Notes * Telephone Encounter - Rayna Pickett LPN - 11/26/2022 12:54 PM EDT Orders for nebulizer and supplies submitted to . documented in this encounter Plan of Treatment Upcoming Encounters Date Type Specialty Care Team Description 11/28/2022 Immunization/Injection Ancillary Nurse Ricky Marlow [address] [facility] [place] [address] 12/06/2022 Office Visit Rheumatology Carlos Alberto Matthews MD [address] [place] [address] 06/13/2023 Office Visit Internal Medicine William Joseph MD [address] [facility] [place] [address] Health Maintenance Due Date Last Done Comments [...] 03/15/2020, Additional history exists GFR 05/14/2023 11/12/2022, 050 08/2022, 12/06/2021, Additional history exists Albumin/Creatinine Ratio 11/13/2023 023, 03/16/2021, 08/03/2016, Additional history exists CKD HGB USE SMARTSET 43170 11/13/202311/12, 11/12/2022, 09/27/2022, Additional history exists CKD PHOS USE SMARTSET 33690 11/13/202310/25, 03/16/2021, 03/15/2020, Additional history exists DTaP,Tdap,and [...] filedocumented as of this encounter Care Teams Office Auditor Relationship Specialty Start Date End Date William Joseph MD [address] [place] [id number] PCP - General Internal Medicine 03/18/12 documented as of this encounter
--- OUTSIDE RECORDS SUMMARY | 2023-01-29 05:00 | External Medical Summary | Summary of Care ---
Author Name Unknown Organization [facility] Address [address] [place] [address] Phone [phone] Care Team Providers Care Stoker Installer Name Role Phone William Joseph MD Primary Care Provider + Reason for Visit * Reason Onset Date Comments Order Request 11/26/2022 Nebulizer and mcallister pplies Encounter Details Date Type Department Care Team Description 11/26/2022 Telephone Pul[facility], [facility] [address] Noble Cervantes MD [address] [place], [place] [phone] Order Request (Nebulizer and supplies) Allergies No known active allergiesdocumented as of this encounter (statuses as of 11/28/2022) Medications Medication Sig Dispensed Refills Start Date [...] inhaler. J47.9 360 mL 11 11/23/2022 Active Azithromycin 250 MG Oral Tablet (Zithromax) Take 2 tabs by mouth on the first day, then 1 tab daily on days two through five 6 Tablet 0 11/21/2022 3 Hospital, Clinic, or Other Facility Administered Medication [...] as of this encounter (statuses as of 11/28/2022) Active Problems Problem Noted Date Thoracic aortic [...] as of this encounter (statuses as of 11/28/2022) Resolved Problems Problem Noted Date Resolved Date Secondary hyperparathyroidism 08/10/2019 History of rheumatoid arthritis 09/04/2017 08/20/2018 History of rheumatoid arthritis 01/06/2016 07/27/2016 Kidney disease, chronic, stage III (GFR 30-59 ml /min) 08/09/2014 07/30/2017 Overview: Per CKD protocol #1 HTN, goal below 140/90 8 Kidney disease, chronic, stage III (GFR 30-59 ml /min) 03/24/2012 documented as of this encounter (statuses as of 11/28/2022) Immunizations Name Administration Dates Next Due COVID-19 [...] Telephone Encounter - August Jaja Browning - 11/28/2022 10:38 AM EDT Received call that [facility] received prescription for nebulizer. They will process request and get the nebulizer out to the pt. * Telephone Encounter - Rayna Pickett LPN - 11/26/2022 12:54 PM EDT Orders for nebulizer and supplies submitted to . documented in this encounter Plan of Treatment Upcoming Encounters Date Type Specialty Care Team Description 12/06/2022 Office Visit Rheumatology Carlos Alberto Matthews MD [address] [place] [address] 06/13/2023 Office Visit Internal Medicine William Joseph MD [address] [place] [address] Health Maintenance Due Date Last Done Comments [...] Additional history exists CKD HGB USE SMARTSET 58377 11/13/202311/12, 11/12/2022, 09/27/2022, Additional history exists CKD PHOS USE SMARTSET 15569 11/13/202310/25, 03/16/2021, 03/15/2020, Additional history exists DTaP,Tdap,and [...] filedocumented as of this encounter Care Teams Stoker Installer Relationship Specialty Start Date End Date William Joseph MD [address] [place] [address], [place] [address] PCP - General Internal Medicine 03/18/12 documented as of this encounter
--- OUTSIDE RECORDS SUMMARY | 2023-01-29 05:00 | External Medical Summary | Summary of Care ---
Author Name Unknown Organization [facility] Address [address] [place] [address] Phone [phone] Care Team Providers Care Entry Level Buyer Name Role Phone William Joseph MD Primary Care Provider + Reason for Visit * Reason Onset Date Comments Test Results 11/19/2022 Encounter Details Date Type Department Care Team Description 11/19/2022 Telephone General Internal Medicine [facility] [address] [facility] [place] [address] William Joseph MD 200 [place] [address] Test Results Allergies No known active allergiesdocumented [...] mRNA, LNP-s, No Pre serve, 2-Dose Series ([employer]) 03/01/2021,08/03/2020,07/13/2020 Pneumococcal Conjugate Vacc, 13 Valent (Prevnar) [...] Office Visit Rheumatology Carlos Alberto Matthews MD [address] [place], [place] [id number] 06/13/2023 Office Visit Internal Medicine William Joseph MD [address] [place] [address] Health Maintenance Due Date Last Done Comments [...] Additional history exists CKD HGB USE SMARTSET 84432 11/13/202311/12, 11/12/2022, 09/27/2022, Additional history exists CKD PHOS USE SMARTSET 72684 11/13/202310/25, 03/16/2021, 03/15/2020, Additional history exists DTaP,Tdap,and [...] filedocumented as of this encounter Care Teams Entry Level Buyer Relationship Specialty Start Date End Date William Joseph MD [address] [place] [address] PCP - General Internal Medicine 03/18/12 documented as of this encounter
--- OUTSIDE RECORDS SUMMARY | 2023-01-29 05:00 | External Medical Summary | Summary of Care ---
Author Name Unknown Organization [facility] Address [address] [place] [address] Phone [phone] Care Team Providers Care Linux Server Engineer Name Role Phone William Joseph MD Primary Care Provider + Reason for Visit * Reason Comments NEW PATIENT * Evaluate & Treat - Unlimited Visits (Within 3 days (urgent)) - Pending Review Specialty Diagnoses / Procedures Referred By Contac t Referred To Contact Pulmonary Diseases / Pulmonary Diagnoses Bronchiectasis with acute lower respiratory infection (HCC) Abnormal chest CT Axillary lymphadenopathy William Joseph MD [address] [place] [address] Referral ID Status Reason Start Date Expiration Date Visits Requested Visits Authorized [id number] Pending Review Specialty Services Required 11/21/[phone] Encounter Details Date Type Department Care Team Description 11/23/2022 Office Visit Pulmonary Medicine, [facility] [address] [place] [address] Noble Cervantes MD [address] [place] [address] Bronchiectasis with acute lower respiratory infection (HCC)*; Centrilobular emphysema (HCC); Rheumatoid arthritis involving multiple sites with positive rheumatoid factor (HCC); Chronic rhinitis Allergies No known active allergiesdocumented as of this encounter (statuses as of 11/25/2022) Medications Medication Sig Dispensed Refills Start Date [...] as of this encounter (statuses as of 11/25/2022) Active Problems Problem Noted Date Thoracic aortic [...] as of this encounter (statuses as of 11/25/2022) Resolved Problems Problem Noted Date Resolved Date Secondary hyperparathyroidism 08/10/2019 History of rheumatoid arthritis 09/04/2017 08/20/2018 History of rheumatoid arthritis 01/06/2016 07/27/2016 Kidney disease, chronic, stage III (GFR 30-59 ml /min) 08/09/2014 07/30/2017 Overview: Per CKD protocol #1 HTN, goal below 140/90 8 Kidney disease, chronic, stage III (GFR 30-59 ml /min) 03/24/2012 documented as of this encounter (statuses as of 11/25/2022) Immunizations Name Administration Dates Next Due COVID-19 [...] Sign Reading Time Taken Comments Blood Pressure 138/70 11/23/2022 12:02 PM EDT Pulse 76 11/23/2022 12:02 PM EDT Temperature 36.1 C (97 F) 11/23/2022 12: 02 PM EDT Respiratory Rate 20 11/23/2022 12:0 2 PM EDT Oxygen Saturation 100% 11/23/2022 12: 03 PM EDT ra, amb Inhaled Oxygen Concentration - - Weight 66.6 kg (146 lb 12.8 oz) 023 12:02 PM EDT Height 170.2 cm (5' 7") 11/23/2022 12:0 2 PM EDT Body Mass Index 22.99 11/23/2022 12:02 PM EDT documented in this encounter Progress Notes * Noble Cervantes MD - 11/25/2022 6:45 PM EDT 11/25/2022 Pulmonary Medicine, [address] [id number] Ignacio Pierre Nascimentoam 1945 male 77 year old Referred by Dr Joseph Subjective CC: Chief Complaint Patient presents with NEW PATIENT HPI: NPC referred for evaluation of bronchiectasis. Patient has been told that he has bronchiectasis but has been fairly functional. Noted that he has been having decreased energy, loss of appetite and some weight loss recently. Symptoms have been progressive despite conservative measures. Coughs in termittently with production of clear and sometimes yellowish mucus. Attributes some of his coughing to sinus congestion with associated drainage. Denies any hemoptysis. Has noted that he wheezes sometimes particularly with activity. Denies any chest pain both at rest or with exertion. Denies any known history of acid reflux. Continues to have intermittent joint and muscle aches which he attributes to age and baseline rheumatoid arthritis. Patient is on Humira for his arthritis and low dose prednisone 5 mg daily. Baseline history of anxiety but does not take any medication for it. He has significant smoking history of about 70 pack years smoking history and quit in 1990. 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 No pets at home. He is not oxygen or any form of PAP therapy. He had CT Chest 11/14/22 MMRC Dyspnea Scale = 2 (On level ground, I walk slower than people of the same age because of breathlessness or have to stop for breath when walking at my own) Interm History/Respiratory Symptoms Cough: occasional ("ongoing"), unsure of the color of his phlegm Hemoptysis: no Sinus Symptoms: chronic drainage Hospitalizations: no ED Trips: no Triggers: laughing makes him cough, smoke Nocturnal: no problems CPAP/BiPAP/O2: no Flu Vaccine: 2021 Pneumovax: 2013 Prevnar: 2016 COVID 19: 07/13/20, 08/03/20, 03/01/21 ROS: Const: Denies fever and not feeling well. Eyes: Denies pain. ENMT: Denies pain and pressure of the ears. Denies sore throat. CV: Denies chest pain and palpitations. Resp: as noted above. GI: Denies abdominal pain, diarrhea, nausea and vomiting. : Urinary: denies dysuria and frequency. Musculo: Intermittent joint pain and muscle pain. Neuro: Denies dizziness, headache. Alvarez/Lymph: Denies excessive bleeding and easy bruising. 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 No mold. Social Determinants of Health Food Insecurity: No Food Insecurity Worried About Running Out of Food in the Last Year: Never true Ran Out of Food in the Last Year: Never true Family History Problem Relation Age of Onset Osteoarthritis Mother Hypertension Mother Other (Natural causes) Mother age 83 Other (Natural causes) Father age 92 No Known Problems Sister Current Outpatient Medications Medication Sig Dispense Refill Cholecalciferol (VITAMIN D3) 50 MCG (2000 UT) Tablet Take 0.5 Tablets by mouth. [...] SKIN EVERY 14 DAYS 2 Each 5 Azithromycin 250 MG Oral Tablet (Zithromax) Take 2 tabs by mouth on the first day, then 1 tab daily on days two through five 6 Tablet 0 Nebulizer/Tubing/Mouthpiece Kit Use as directed Bronchiectasis J47.9 1 Kit 5 Full Kit Nebulizer Set Use as directed J47.9 1 Each 0 Albuterol Sulfate (2.5 MG/3ML) 0.083% Inhalation Nebulization Solution (Proventil) Inhale 1 Vial via nebulizer every 4 hours as needed for Wheezing. , use in place of rescue inhaler. J47.9 360 mL11 Citalopram Hydrobromide 20 MG Oral Tablet (CeleXA) 0.5 tablet by mouth once a day for 2 weeks then 1 tablet daily by mouth after that (Patient not taking: Reported on 11/23/2022) 30 Tablet 5 Current Facility-Administered Medications Medication Dose Route Frequency Provider Last Rate Last Admin Albuterol Sulfate (Proventil) (2.5 MG/3ML) 0.083% inhalation solution 2.5 mg 2.5 mg Nebulizer PRN Noble Cervantes MD Albuterol Sulfate (Proventil) (5 MG/ML) 0.5% *conc* inhalation solution 2.5 mg 2.5 mg NebulizerPRAbdiel Cervantes MD Review of patient's allergies indicates: No Known Allergies Objective Filed Vitals: 11/23/22 1202 11/23/22 1203 BP: 138/70 Pulse: 76 Resp: 20 Temp: 36.1 C (97 F) TempSrc: Tympanic SpO2: 100% 100% Weight: 66.6 kg (146 lb 12.8 oz) Height: 1.702 m (5' 7") Exam: Const: No signs of acute distress present. Head/Face: Normal on inspection. Eyes: Conjunctivae clear. ENMT: Oropharynx: No erythema, exudate or masses. Neck: Supple and symmetric. Resp: Respirations are regular. Not labored at rest on room air. Air entry is mildly decreased at the bases, with minimal crackles. Lungs are clear bilaterally. CV: First and second heart sounds. Extremities: No edema of the lower limbs bilaterally. Abdomen: Positive bowel sounds. Palpation of the abdomen reveals softness, but no distension or tenderness. No palpable hepatosplenomegaly. Musculo: Walks with a normal gait. Skin: Skin is warm and dry. Neuro: Coordination normal. No involuntary movement. Psych: Patient's attitude is cooperative. Mood is normal. Affect is normal. Tests reviewed with the patient: CT chest done was reviewed by me in PACS. The images were shown to the patient and findings were discussed with him. My interpretation-extensive area of bronchiectasis noted mostly at the bases with ground-glass opacity and tree-in-bud pattern. Emphysematous changes noted. Agree with rest of reportof the radiologist. Patient aware of the CT report and has been following up with his thyroid and lymph nodes. Assessment Bronchiectasis with acute lower respiratory infection (HCC) (Primary) CT scan of the chest findings noted above. There is evidence of bronchiectasis with suggestion of ongoing respiratory tract infection. Need for further evaluation and patient will be scheduled for bronchoscopy under general anesthesia for evaluation. Risks and benefits of procedure were discussed with the patient. Risks discussed include but not limited to bleeding, infection, pneumothorax, mediastinitis, prolonged intubation and hospitalization, and anesthetic complications. Patient agreed to have the procedure done and will be scheduled. Further workup for evaluation of bronchiectasis will be done. Patient will be started on bronchodilator nebulizer and was asked to use flutter therapy to see if this will help with secretion management. Compliance was encouraged. - ANTINUCLEAR ANTIBODY (STAN) EIA SCREEN WITH REFLEX AB QUANT; Future; Expected date: 11/23/2022 - [id number], QN; Future; Expected date: 11/23/2022 - ANCA REFLEX PANEL; Future; Expected date: 11/23/2022 - METAL FABRICATING INSPECTOR AND SM ANTIBODIES; Future; Expected date: 11/23/2022 - CHEST WALL MANIPULATION, INITIAL - AEROSOL/VAPOR INHALATIONS, INITIAL - Nebulizer/Tubing/Mouthpiece Kit; Use as directed Bronchiectasis J47.9 - Full Kit Nebulizer Set; Use as directed J47.9 Centrilobular emphysema (HCC) CT scan of the chest findings noted above. Patient will be scheduled for spirogram. Bronchodilator nebulization with flutter device will be tried for now. - SPIROMETRY B/A BRONCHODILATOR; Future; Expected date: 02/23/2023 - Albuterol Sulfate (Proventil) (2.5 MG/3ML) 0.083% inhalation solution 2.5 mg - Albuterol Sulfate (Proventil) (5 MG/ML) 0.5% *conc* inhalation solution 2.5 mg - CHEST WALL MANIPULATION, INITIAL - AEROSOL/VAPOR INHALATIONS, INITIAL Rheumatoid arthritis involving multiple sites with positive rheumatoid factor (HCC) Known history of rheumatoid arthritis and takes medication Humira, in addition to low-dose prednisone 5 mg daily. Likely helping with his breathing also. He is following up with the gun mechanic and compliance was encouraged. Chronic rhinitis Blood test for basic IgE level. - IGE; Future; Expected date: 11/23/2022 - [facility] IGE PROFILE; Future; Expected date: 11/23/2022 Other orders - Albuterol Sulfate (2.5 MG/3ML) 0.083% Inhalation Nebulization Solution (Proventil); Inhale 1 Vialvia nebulizer every 4 hours as needed for Wheezing. , use in place of rescue inhaler. J47.9 Plan Bronchoscopy under general anesthesia Blood for connective tissue screening Spirogram Bronchodilator nebulization and flutter device Diet and exercise as tolerated Follow up with gun mechanic Blood for IgE level Call the clinic if any worsening shortness of breath or new symptoms. Follow-up: Return in about 6 months (around 05/25/2023). | Check-out note: Bronchoscopy with anesthesia either in [facility] or next OR day in [place]. No C arm and no EBUS. Blood test as soon as possible. F/u in 6 months with a winifred. Noble Cervantes MD DISCLAIMER: This dictation was verbally transcribed via Dictation system. Occasional Errors, spelling flaws andomissions are inherent in digital transcriptions. Please contact the undersigned for any clarification/correction in the dictated transcript as needed. documented in this encounter Nursing Notes * Rayna Pickett LPN - 11/23/2022 11:57 AM EDT NPC referred by Dr Joseph for evaluation of bronchiectasis, abnormal CT Chest, and axillary lymphadenopathy. CT Chest 11/14/22 MMRC Dyspnea Scale = 2 (On level ground, I walk slower than people of the same age because of breathlessness or have to stop for breath when walking at my own) Interm History/Respiratory Symptoms Cough: occasional ("ongoing"), unsure of the color of his phlegm Hemoptysis: no Sinus Symptoms: chronic drainage Hospitalizations: no ED Trips: no Triggers: laughing makes him cough, smoke Nocturnal: no problems CPAP/BiPAP/O2: no Flu Vaccine: 2022 Pneumovax: 2014 Prevnar: 2016 COVID 19: 07/13/20, 08/03/20, 03/01/21 documented in this encounter Plan of Treatment Upcoming Encounters Date Type Specialty Care Team Description 11/28/2022 Immunization/Injection Ancillary [place], Nurse Ricky Salmeron [address] [facility] [place] [address] 12/06/2022 Office Visit Rheumatology Carlos Alberto Matthews MD [address] [place] [employer] [facility] [place] [address] 06/13/2023 Office Visit Internal Medicine William Joseph MD [address] [facility] [place] [address] Scheduled Orders Name Type Priority Associated Diagnoses Orde r Schedule ANTINUCLEAR ANTIBODY (STAN) EIA SCREEN WITH REFLEX AB QUANT Lab Routine Bronchiectasis with acute lower respiratory infection (HCC) Expected: 11/23/2022 (Approximate), Expires: 11/24/2023 [id number], QN Lab Routine Bronchiectasis with acute lower respiratory infection (HCC) Expected: 11/23/2022 (Approximate), Expires: 11/24/2023 ANCA REFLEX PANEL Lab Routine Bronchiectasis with acute lower respiratory infection (HCC) Expected: 11/23/2022 (Approximate), Expires: 11/24/2023 METAL FABRICATING INSPECTOR AND SM ANTIBODIES Lab Routine Bronchiectasis with acute lower respiratory infection (HCC) Expected: 11/23/2022 (Approximate), Expires: 11/24/2023 IGE Lab Routine Chronic rhinitis Expected: 11/23/2022 (Approximate), Expires: 11/24/2023 [facility] IGE PROFILE Lab Routine Chronic rhinitis Expected: 11/23/2022 (Approximate), Expires: 11/24/2023 SPIROMETRY B/A BRONCHODILATOR Procedures Routine Centrilobular emphysema (HCC) Expected: 02/23/2023 (Approximate), Expires: 11/24/2023 CHEST WALL MANIPULATION, INITIAL Procedures Routine Bronchiectasis with acute lower respiratory infection (HCC) Centrilobular emphysema (HCC) Ordered: 11/23/2022 AEROSOL/VAPOR INHALATIONS, INITIAL Procedures Routine Bronchiectasis with acute lower respiratory infection (HCC) Centrilobular emphysema (HCC) Ordered: 11/23/2022 Health Maintenance Due Date Last Done Comments [...] Additional history exists CKD HGB USE SMARTSET 90618 11/13/202311/12, 11/12/2022, 09/27/2022, Additional history exists CKD PHOS USE SMARTSET 42246 11/13/202310/25, 03/16/2021, 03/15/2020, Additional history exists DTaP,Tdap,and [...] infection (HCC)- Primary Bronchiectasis with acute exacerbation Centrilobular emphysema (HCC) Other emphysema Rheumatoid arthritis involving multiple sites with positive rheumatoid factor (HCC) Chronic rhinitis documented in this encounter Care Teams Linux Server Engineer Relationship Specialty Start Date End Date William Joseph MD [address] [place] [address] PCP - General Internal Medicine 03/18/12 documented as of this encounter
--- OUTSIDE RECORDS SUMMARY | 2023-01-29 05:00 | External Medical Summary | Summary of Care ---
Author Name Unknown Organization [facility] Address [address] [place] [address] Phone [phone] Care Team Providers Care Geotechnical Laboratory Technician Name Role Phone William Chavez MD Primary Care Provider + Reason for Visit * Reason Onset Date Comments Test Results 11/19/2022 Appointment 11/19/2022 Encounter Details Date Type Department Care Team Description 11/19/2022 Telephone General Internal Medicine [facility] [address] [place] [address] William Chavez MD [address] [place] [address] Test Results; Appointment Allergies No known active allergiesdocumented as of [...] * Telephone Encounter - PAULA Gomes - 11/20/2022 2:59 PM EDT LMOM 11/20 * Addendum Note - William Chavez MD - 11/20/2022 2:49 PM EDTAddended by: WILLIAM CHAVEZ on: 11/20/2022 02:49 PM Modules accepted: Orders * Addendum Note - Rosario Alvarez LPN [...] to return call. * Telephone Encounter - Sandpi Khoury CMA - 11/19/2022 10:32 AM EDT ----- Message from William Chavez MD sent at 11/18/2022 3:31 PM EDT [...] 10:23 AM EDT ----- Message from William Chavez MD sent at 11/18/2022 4:25 PM EDT [...] Type Specialty Care Team Description 11/28/2022 Immunization/Injection Nurse Ricky Adrian [address] [place] [address] 12/06/2022 Office Visit Rheumatology Carlos Alberto Matthews MD [address] [employer] [place] [address] 06/13/2023 Office Visit Internal Medicine William Chavez MD [address] [facility] [place], [place] [address] Health Maintenance Due Date Last Done Comments Hepatitis B (1 of 3 - Risk 3-dose series) 2003 FOBT ANNUALLY,AGES 18-90 03/22/2017 03/22/2016, 09/26 Zoster Vaccines (2 of 2) 12/26/2020 10/31/2020, 12/25 COVID-19 Vaccine (4 - Booster for Pfizer series) 04/26/2021 03/01/2021, 08/03/2020, 07/13/2020 Depression, Most Recent Score >= 10 (will fire each visit until score < 10) 11/08/2022 11/07/2022 GFR 05/14/2023 11/12/2022, 08/2022, 12/06/2021, Additional history exists Albumin/Creatinine Ratio 11/13/2023 023, 03/16/2021, 08/03/2016, Additional history exists CKD HGB USE SMARTSET 23749 11/13/202311/12, 11/12/2022, 09/27/2022, Additional history exists CKD PHOS USE SMARTSET 12693 11/13/202310/25, 03/16/2021, 03/15/2020, Additional history exists DTaP,Tdap,and [...] filedocumented as of this encounter Care Teams Geotechnical Laboratory Technician Relationship Specialty Start Date End Date William Chavez MD [address] [place] [address] PCP - General Internal Medicine 03/18/12 documented as of this encounter
--- OUTSIDE RECORDS SUMMARY | 2023-01-29 05:00 | External Medical Summary | Summary of Care ---
Author Name Unknown Organization [facility] Address [address] [place] [address] Phone [phone] Care Team Providers Care Radio Time Sales Supervisor Name Role Phone William Chavez MD Primary Care Provider + Reason for Visit * Reason Onset Date Comments Test Results 11/19/2022 Appointment 11/19/2022 Encounter Details Date Type Department Care Team Description 11/19/2022 Telephone General Internal Medicine [facility] [address] [place] [address] William Chavez MD [address] [place] [address] Test Results; Appointment Allergies No known active allergiesdocumented as of this encounter (statuses as of 11/23/2022) Medications Medication Sig Dispensed Refills Start Date End Date Status Cholecalciferol (VITAMIN D3) 50 MCG (1999) Tablet Take 0.5 Tablets by mouth. Every 2 - 3 days 0 Active Benzonatate 100 MG Oral Capsule (Tessalon Perles)Indications: Cough Take by mouth 1 Capsule 2 times a day as needed for Cough. Do not cut, crush, or chew. 50 Capsule 2 09/27/2021 Active Fluticasone Propionate HFA 44 MCG/ACT Inhalation Aerosol (Flovent HFA)Indications:Bro nchiectasis (HCC) Inhale by mouth 1 Puff in the morning AND 1 Puff before bedtime. 10.6 g 5 02/13/2022 Active predniSONE 5 MG Oral Tablet (Deltasone)Indicati ons:H/O rheumatoid arthritis Take 1 Tablet (5 mg) by mouth in the morning. 30 Tablet 5 05/10/2022 Active Benazepril HCl 5 MG Oral Tablet (Lotensin)Indicatio ns: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) Take 1 Tablet by mouth in the morning. 90 Tablet 1 06/11/2022 Active amLODIPine Besy-Benazepril HCl 2.5-10 MG Oral Capsule (Lotrel)Indications :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) Take 1 Capsule by mouth in the morning. 90 Capsule 1 06/11/2022 Active Cyanocobalamin 1000 MCG/ML Injection Solution (Cyanocobalamin)Ind ications:Pernicious anemia inject 1ml into a large muscle every month 1 mL 4 10/18/2022 Active Citalopram Hydrobromide 20 MG Oral Tablet (CeleXA)Indications :Moderate major depression (HCC) 0.5 tablet by mouth [...] as of this encounter (statuses as of 11/23/2022) Active Problems Problem Noted Date Thoracic aortic [...] as of this encounter (statuses as of 11/23/2022) Resolved Problems Problem Noted Date Resolved Date Secondary hyperparathyroidism 08/10/2019 History of rheumatoid arthritis 09/04/2017 08/20/2018 History of rheumatoid arthritis 01/06/2016 07/27/2016 Kidney disease, chronic, stage III (GFR 30-59 ml /min) 08/09/2014 07/30/2017 Overview: Per CKD protocol #1 HTN, goal below 140/90 8 Kidney disease, chronic, stage III (GFR 30-59 ml /min) 03/24/2012 documented as of this encounter (statuses as of 11/23/2022) Immunizations Name Administration Dates Next Due COVID-19 mRNA, LNP-s, No Pre serve, 2-Dose Series (Glio) 03/01/2021,08/03/2020,07/13/2020 Pneumococcal Conjugate Vacc, 13 Valent (Prevnar) [...] Miscellaneous Notes * Telephone Encounter - PAULA Weir - 11/23/2022 2:04 PM EDT Letter sent * Telephone Encounter - PAULA Gomes - 11/22/2022 1:00 PM EDT MyG message sent 11/22 * Telephone Encounter - PAULA Gomes - [...] xrays) and rheum visit for further evaul.Dr. Mathtews - MAC 4. Platelets high, could be from inflammation, recheck 1 month 5. No paraprotein. documented in this encounter Plan of Treatment Upcoming Encounters Date Type Specialty Care Team Description 11/28/2022 Immunization/Injection Ancillary [place], Nurse Ricky Salmeron [address] [facility] [place] [address] 12/06/2022 Office Visit Rheumatology Carlos Alberto Matthews MD [address] [place] [address] 06/13/2023 Office Visit Internal Medicine William Chavez MD [address] [facility] [place] [address] Health Maintenance Due Date Last Done Comments [...] Additional history exists CKD HGB USE SMARTSET 63945 11/13/202311/12, 11/12/2022, 09/27/2022, Additional history exists CKD PHOS USE SMARTSET 50025 11/13/202310/25, 03/16/2021, 03/15/2020, Additional history exists DTaP,Tdap,and [...] filedocumented as of this encounter Care Teams Radio Time Sales Supervisor Relationship Specialty Start Date End Date William Chavez MD [address] [place] [id number] PCP - General Internal Medicine 03/18/12 documented as of this encounter
--- OUTSIDE RECORDS SUMMARY | 2023-01-29 05:00 | External Medical Summary | Summary of Care ---
Author Name Unknown Organization [facility] Address [address] [place] [address] Phone [phone] Care Team Providers Care Parole Or Probation Officer Name Role Phone iWlliam Joseph MD Primary Care Provider + Reason for Visit * Reason Onset Date Comments Test Results 11/19/2022 Encounter Details Date Type Department Care Team Description 11/19/2022 Telephone General Internal Medicine [facility] 200 [facility] [place] [address] William Joseph MD 200 [place] [address] Test Results Allergies No known active allergiesdocumented [...] mRNA, LNP-s, No Pre serve, 2-Dose Series (Nomi) 03/01/2021,08/03/2020,07/13/2020 Pneumococcal Conjugate Vacc, 13 Valent (Prevnar) [...] encounter Miscellaneous Notes * Telephone Encounter - Rosario Alvarze LPN - 11/20/2022 2:47 PM EDT See other encounter from today. Message was addressed there. * Telephone Encounter - Oksana Barksdale LPN - 11/19/2022 10:48 AM EDT Left message for pt to call back. See other TE as well * Telephone Encounter - Oksana Barksdale LPN - 11/19/2022 10:48 AM EDT ----- Message from William Joseph MD sent at 11/18/2022 3:33 PM EDT ----- Advanced arthritis of knee, would like him to see ortho about this too, not sure if they can do both in same visit (also seeing for hip) so 2 referral placed. documented in this encounter Plan of Treatment Upcoming Encounters Date Type Specialty Care Team Description 11/28/2022 Immunization/Injection Ancillary [place], Nurse Ricky Salmeron [address] [place] [address] 12/06/2022 Office Visit [facility]umat[facility] [address] [facility] [address] 06/13/2023 Office Visit Internal Medicine William Joseph MD 200 [facility], [place] [id number] Health Maintenance Due Date Last Done Comments Hepatitis B (1 of 3 - Risk 3-dose series) 2003 FOBT ANNUALLY,AGES 18-90 03/22/2017 03/22/2016, 09/26 Zoster Vaccines (2 of 2) 12/26/2020 10/31/2020, 12/25 COVID-19 Vaccine (4 - Booster for Pfizer series) 04/26/2021 03/01/2021, 08/03/2020, 07/13/2020 Depression, Most Recent Score >= 10 (will fire each visit until score < 10) 11/08/2022 11/07/2022 GFR 05/14/2023 11/12/2022, 050 08/2022, 12/06/2021, Additional history exists Albumin/Creatinine Ratio 11/13/2023 023, 03/16/2021, 08/03/2016, Additional history exists CKD HGB USE SMARTSET 93442 11/13/202311/12, 11/12/2022, 09/27/2022, Additional history exists CKD PHOS USE SMARTSET 61733 11/13/202310/25, 03/16/2021, 03/15/2020, Additional history exists DTaP,Tdap,and [...] filedocumented as of this encounter Care Teams Parole Or Probation Officer Relationship Specialty Start Date End Date William Joseph MD [address] [place] [address], [place] [address] PCP - General Internal Medicine 03/18/12 documented as of this encounter
--- OUTSIDE RECORDS SUMMARY | 2023-01-29 05:00 | External Medical Summary | Summary of Care ---
Author Name Unknown Organization [facility] Address [address] [place] [address] Phone [phone] Care Team Providers Care Coal And Ash Supervisor Name Role Phone William Chavez MD Primary Care Provider + Reason for Visit * Reason Onset Date Comments Test Results 11/19/2022 Appointment 11/19/2022 Encounter Details Date Type Department Care Team Description 11/19/2022 Telephone General Internal Medicine [facility] [address] [place] [address] William Chavez MD [address] [place] [address] Test Results; Appointment Allergies No known active allergiesdocumented as of this encounter (statuses as of 11/22/2022) Medications Medication Sig Dispensed Refills Start Date [...] as of this encounter (statuses as of 11/22/2022) Active Problems Problem Noted Date Thoracic aortic [...] as of this encounter (statuses as of 11/22/2022) Resolved Problems Problem Noted Date Resolved Date Secondary hyperparathyroidism 08/10/2019 History of rheumatoid arthritis 09/04/2017 08/20/2018 History of rheumatoid arthritis 01/06/2016 07/27/2016 Kidney disease, chronic, stage III (GFR 30-59 ml /min) 08/09/2014 07/30/2017 Overview: Per CKD protocol #1 HTN, goal below 140/90 8 Kidney disease, chronic, stage III (GFR 30-59 ml /min) 03/24/2012 documented as of this encounter (statuses as of 11/22/2022) Immunizations Name Administration Dates Next Due COVID-19 [...] PAULA Gomes - 11/22/2022 1:00 PM EDT [employer] message sent 11/22 * Telephone Encounter - PAULA Gomes - 11/20/2022 2:59 PM EDT LMOM 11/20 * Addendum Note - William Chavez MD - 11/20/2022 2:49 PM EDTAddended by: WILLIAM CHAVEZ on: 11/20/2022 02:49 PM Modules accepted: Orders * Addendum Note - Jami Alvarez LPN - 11/20/2022 2:47 PM EDTAddended by: JAMI ALVAREZ on: 11/20/2022 02:47 PM Modules accepted: Orders * Telephone Encounter - Jami Alvarez LPN - 11/20/2022 2:38 PM EDT [...] TE as well * Telephone Encounter - aSndip Khoury CMA - 11/19/2022 10:35 AM EDT [...] Encounters Date Type Specialty Care Team Description 11/23/2022 Office Visit Pulmonary Noble Cervantes MD [address] [facility] [place] [id number] 11/28/2022 Immunization/Injection Ancillary [place], Nurse Ricky Salmeron [address] [place] [address] 12/06/2022 Office Visit Rheumatology Carlos Alberto Matthews MD [address] [place] [place] [address] 06/13/2023 Office Visit Internal Medicine William Chavez MD [address] [address] Health Maintenance Due Date Last Done Comments [...] Additional history exists CKD HGB USE SMARTSET 93682 11/13/202311/12, 11/12/2022, 09/27/2022, Additional history exists CKD PHOS USE SMARTSET 95550 11/13/202310/25, 03/16/2021, 03/15/2020, Additional history exists DTaP,Tdap,and [...] filedocumented as of this encounter Care Teams Coal And Ash Supervisor Relationship Specialty Start Date End Date William Chavez MD [address] [place] [address] PCP - General Internal Medicine 03/18/12 documented as of this encounter
--- OUTSIDE RECORDS SUMMARY | 2023-01-29 05:00 | External Medical Summary | Summary of Care ---
Author Name Unknown Organization [facility] Address [address] [place] [address] Phone [phone] Care Team Providers Care Club Room Attendant Name Role Phone William Chavez MD Primary Care Provider + Reason for Visit * Reason Onset Date Comments Test Results 11/19/2022 Encounter Details Date Type Department Care Team Description 11/19/2022 Telephone General Internal Medicine [facility] 200 [facility] [place] [address] William Chavez MD 200 [place] [address] Test Results Allergies No known active allergiesdocumented [...] mRNA, LNP-s, No Pre serve, 2-Dose Series (IntheGlo) 03/01/2021,08/03/2020,07/13/2020 Pneumococcal Conjugate Vacc, 13 Valent (Prevnar) [...] Miscellaneous Notes * Addendum Note - William Chavez MD [...] xrays) and rheum visit for further evaul.Dr. Matthews - MAC 4. Platelets high, could be from inflammation, recheck 1 month 5. No paraprotein. documented in this encounter Plan of Treatment Upcoming Encounters Date Type Specialty Care Team Description 11/28/2022 Immunization/Injection Ancillary [place], Nurse Ricky Salmeron [address] [facility] [place] [address] 12/06/2022 Office Visit Rheumatology Carlos Alberto Matthews MD [facility] [place] [address] 06/13/2023 Office Visit Internal Medicine William Chavez MD 200 [facility], [place] [address] Health Maintenance Due Date Last Done Comments [...] Additional history exists CKD HGB USE SMARTSET 83928 11/13/202311/12, 11/12/2022, 09/27/2022, Additional history exists CKD PHOS USE SMARTSET 50982 11/13/202310/25, 03/16/2021, 03/15/2020, Additional history exists DTaP,Tdap,and [...] filedocumented as of this encounter Care Teams Club Room Attendant Relationship Specialty Start Date End Date William Chavez MD [address] [place] [address], [place] [address] PCP - General Internal Medicine 03/18/12 documented as of this encounter
--- OUTSIDE RECORDS SUMMARY | 2023-01-29 05:01 | External Medical Summary ---
Author Name Unknown Address Unknown Organization [id number]:[facility] [place] - [address] [place] [address] Laboratory Report Ordering Provider Test Date Status KATHY RAE 11/12/2022 14:41:40 Final Observation Date Value Abnormality Reference (Units ) Status Erythrocyte sedimentation rate by Photometric method 11/12/2022 14:41:40 97 Above high normal <20 (mm/hour) Final Performing Location [facility] [place] - [address] [place] [address]
--- OUTSIDE RECORDS SUMMARY | 2023-01-29 05:01 | External Medical Summary ---
Author Name Unknown Address Unknown Organization K01:[facility] [place] [address] [place] [address] Laboratory Report Ordering Provider Test Date Status KATHY RAE 11/12/2022 14:46:33 Final Observation Date Value Abnormality Reference (Units ) Status Albumin, Urine 11/12/2022 14:46:33 11.30 (mg/dL) Final Creatinine, Urine 11/12/2022 14:46:33 277 (mg/dL) Final Albumin/Creatinine [Mass Ratio] in Urine 11/12/2022 14:46:33 41 Above high normal <30 (mg/g Creat) Final Performing Location [facility] [place] [address] [place] [address]
--- OUTSIDE RECORDS SUMMARY | 2023-01-29 05:01 | External Medical Summary ---
Author Name Unknown Address Unknown Organization K01:[facility] - [address] [place] [address] Laboratory Report Ordering Provider Test Date Status KTAHY RAE 11/12/2022 14:41:40 Final Observation Date Value Abnormality Reference (Units ) Status Vitamin B12 11/12/2022 14:41:40 3830 147-2986 (pg/mL) Final Performing Location LABORATORY [facility] - [address] [place] [address]
--- OUTSIDE RECORDS SUMMARY | 2023-01-29 05:01 | External Medical Summary ---
Author Name Unknown Address Unknown Organization K01:LAB[facility]ORY [facility] [place] - [address] [place] [address] Laboratory Report Ordering Provider Test Date Status KATHY RAE 11/12/2022 14:46:33 Final Observation Date Value Abnormality Reference (Units) Status Protein, Urine 11/12/2022 14:46:33 54 (mg/dL) Final Immunofixation for Urine Narrative 11/12/2022 14:46:33 No monoclonal free light chains present (Bence Gavin protein), in a background of glomerular proteinuria. Final Performing Location LAB[facility]ATORY [facility] [place] - [address] [place] [address]
--- OUTSIDE RECORDS SUMMARY | 2023-01-29 05:01 | External Medical Summary | Summary of Care ---
Author Name Unknown Organization [facility] Address [address] [place] [address] Phone [phone] Care Team Providers Care De Icer Kit Assembler Name Role Phone William Chavez MD Primary Care Provider + Reason for Referral * Evaluate & Treat - Unlimited Visits (Within 3 days (urgent)) - Pending Review Specialty Diagnoses / Procedures Referred By Contac t Referred To Contact Orthopaedic Surgery / Orthopedics Diagnoses Acute pain of right knee William Chavez MD [address] [place] [address] Referral ID Status Reason Start Date Expiration Date Visits Requested Visits Authorized [id number] Pending Review Specialty Services Required 11/18/2022 999 [...] Contac t Referred To Contact Radiology Diagnoses Thyroid nodule Procedures US HEAD AND NECK William Chavez MD [address] [place] [address] Referral ID Status Reason Start Date Expiration Date V isits Requested Visits Authorized [id number] Pending Review 11/07/2022 999 999 * Precert (Within 10 days (routine)) - Authorized Specialty Diagnoses / Procedures Referred By Contac t Referred To Contact Radiology Diagnoses Bronchiectasis without complication (HCC) Chronic cough Procedures CT CHEST WO CONTRAST William Chavez MD [address] [place] [address] Referral ID Status Reason Start Date Expiration Date V isits Requested Visits Authorized [id number] Authorized Precert 11/12/2022 01/11/2023 999 999 Reason for Visit * Reason Comments Follow Up 6 month follow up. P atmauri presents with concerns for weakness from spinal [...] Description 11/07/2022 Office Visit General Internal Medicine [facility] [address] [place] [address] William Chavez MD [address] [facility] [place] [address] 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)*; Primary osteoarthritis of right hip; Bronchiectasis without complication (HCC); Rheumatoid arthritis involving multiple sites with positive rheumatoid factor (HCC); Acute pain of right knee; Mixed hyperlipidemia; Pernicious anemia; MGUS (monoclonal gammopathy of unknown significance); Chronic neck pain; Immunity status testing; Chronic cough; Fever, unspecified fever cause; Moderate major depression (HCC); Thyroid nodule Allergies No known active allergiesdocumented as of this encounter (statuses as of 11/18/2022) Medications Medication Sig Dispensed Refills Start Date End Date Status Cholecalciferol (VITAMIN D3) 50 MCG (1999) Tablet Take 0.5 Tablets by mouth. Every 2 - 3 days 0 Active Benzonatate 100 MG Oral Capsule (Iain Silva)Indication s:Cough Take by mouth 1 Capsule 2 [...] as of this encounter (statuses as of 11/18/2022) Active Problems Problem Noted Date Thoracic aortic [...] as of this encounter (statuses as of 11/18/2022) Resolved Problems Problem Noted Date Resolved Date Secondary hyperparathyroidism 08/10/2019 History of rheumatoid arthritis 09/04/2017 08/20/2018 History of rheumatoid arthritis 01/06/2016 07/27/2016 Kidney disease, chronic, stage III (GFR 30-59 ml /min) 08/09/2014 07/30/2017 Overview: Per CKD protocol #1 HTN, goal below 140/90 8 Kidney disease, chronic, stage III (GFR 30-59 ml /min) 03/24/2012 documented as of this encounter (statuses as of 11/18/2022) Immunizations Name Administration Dates Next Due COVID-19 mRNA, LNP-s, No Pre serve, 2-Dose Series ([email or web address]) 03/01/2021,08/03/2020,07/13/2020 Pneumococcal Conjugate Vacc, 13 Valent (Prevnar) [...] in this encounter Progress Notes * William Chavez MD - 11/07/2022 5:12 PM EDT Chief [...] left arm weakness last month, saw Dr. 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 Comment: family partner Employer: [employer] Tobacco Use Smoking status: Former Packs/day: 2.00 [...] with CKD (chronic kidney disease) stage III ([facility]) (primary encounter diagnosis) M16.11 Primary osteoarthritis of right hip J47.9 Bronchiectasis without complication ([facility]) M05.79 Rheumatoid arthritis involving multiple sites with positive rheumatoid factor ([facility]) M25.561 Acute pain of right knee E78.2 Mixed hyperlipidemia D51.0 Pernicious anemia D47.2 MGUS (monoclonal gammopathy of unknown significance) M54.2,G89.29 Chronic neck pain Z01.84 Immunity status testing R05.3 Chronic cough R50.9 Fever, unspecified fever cause 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HCC) E04.1 Thyroid nodule PLAN: Benign hypertension with CKD (chronic kidney disease) stage III ([facility]) (Primary) - COMPREHENSIVE METABOLIC PANEL; Future; Expected [...] and documentation of the care provided to Igancio Garcia excluding any time spent in the performance of separately billed services. Follow Up: Return in about 3 months (around 02/07/2023), or if symptoms worsen or fail to improve, for Return with Physician. | For: Return with Physician | Check-out note: Ok for private spot William Chavez MD documented in this encounter Nursing Notes [...] Addendum Note - William Chavez MD - 11/18/2022 3:31 PM EDTAddended by: WILLIAM CHAVEZ on: 11/18/2022 03:31 PM Modules accepted: Orders documented in this encounter Plan of Treatment Upcoming Encounters Date Type Specialty Care Team Description 12/06/2022 Office Visit Rheumatology Carlos Alberto Matthews MD [address] [facility], [place] [address] 06/13/2023 Office Visit Internal Medicine William Chavez MD [address] [place], [place] [address] [address] Pending Results Name Type Priority Associated Diagnoses Date /Time CT CHEST WO CONTRAST Medical Imaging Routine Bronchiectasis without complication (HCC) Chronic cough 11/14/2022 2:57 PM EDT Scheduled Orders Name Type Priority Associated Diagnoses Orde r Schedule XR CHEST 2 VIEWS Medical Imaging Routine Chronic cough Fever, unspecified fever cause Ordered: 11/07/2022 US HEAD AND NECK Medical Imaging Routine Thyroid nodule Expected: 11/07/2022, Expires: 12/08/2023 Scheduled Referrals Name Type Priority Associated Diagnoses [...] 08/2022, 12/06/2021, Additional history exists Albumin/Creatinine Ratio 11/13/20232 023, 03/16/2021, 08/03/2016, Additional history exists CKD HGB USE SMARTSET 55564 11/13/202311/12, 11/12/2022, 09/27/2022, Additional history exists CKD PHOS USE SMARTSET 15252 11/13/202310/25, 03/16/2021, 03/15/2020, Additional history exists DTaP,Tdap,and [...] Not on filedocumented as of this encounter Results * URINE IMMUNOFIXATION, BENCE PEREZ PROTEIN, RANDOM URINE (11/12/2022 2:46 PM EDT) Protein, Random Urine 54 mg/dL 11/14/2022 10:52 AM EDT LAB[facility]ATORY [facility] Immunofixation Interpretation No monoclonal free light chains present (Bence Perez protein), in a background of glomerular proteinuria. 11/14/2022 10:52 AM EDT LABORATORY C Urine Non-blood Collection / Unknown 11/12/2022 2:46 PM EDT 11/12/2022 2:53 PM EDT William Chavez MD LAB URINE ORDERA BLES LABORATORY [facility] [address] [place] [address] * (ABNORMAL) ALBUMIN / CREATININE RATIO, URINE (11/12/2022 2:46 PM EDT) Albumin, Random Urine 11.30 mg/dL 11/13/2022 12:17 AM EDT LABORATORY [facility] Creatinine, Random Urine 277 mg/dL 11/13/2022 12:17 AM EDT LAB[facility]ATORY [facility] Albumin / Creatinine Ratio, Urine 41(H) <30 mg/g Creat 11/13/2022 12:17 AM EDT LAB[facility]ORY [facility] Urine Urine specimen obtained by clean catch procedure / Unknown Non-blood Collection / Unknown 11/12/2022 2:46 PM EDT 11/12/2022 2:46 PM EDT Narrative LAB[facility]ORY [facility] - 11/13/2022 12:17 AM EDT Normal: <30 mg/g creatinine High: 30-300 mg/g creatinine Very High: >300 mg/g creatinine Nephrotic: >2200 mg/g creatinine William Chavez MD LAB URINE ORDERA BLES Performing Organization Address [facility]/ZIP Co de Phone Number LABORATORY [facility] [address] [place] [address] * HEPATITIS B SURFACE ANTIBODY (11/12/2022 2:41 PM EDT) Pathologist [facility] [place] Hepatitis B Surface Antibody, Quantitative <3.5 mIU/mL 11/13/2022 4:47 AM EDT LAB[facility]ATORY [facility] Hepatitis B Surface Antibody, Qualitative Negative 11/13/2022 4:47 AM EDT LAB[facility]ORY [facility] Hepatitis B Surface Antibody, Interpretation NOT immune to Hepatitis B Virus 11/13/2022 4:47 AM EDT LAB[facility]ORY [facility] Comment: POSITIVE: >=11.5 mIU/mL INDETERMINATE: 8.5-<11.5 mIU/mL NEGATIVE: <8.5 mIU/mL Blood Venous blood specimen / Unknown Venipuncture / Unknown 11/12/2022 2:41 PM EDT 11/12/2022 2:41 PM EDT William Chavez MD LAB BLOOD ORDERA BLES Performing Organization Address [facility]/ZIP Co de Phone Number LABORATORY [place] [address] [place] [address] * (ABNORMAL) SERUM PROTEIN ELECTROPHORESIS REFLEX PROFILE (11/12/2022 2:41 PM EDT) Pathologist [facility] [place] Protein 7.8 6.0 - 8.3 g/dL 11/14/2022 10:52 AM EDT LAB[facility]ORY [facility] Albumin 2.84(L) 3.30 - 4.40 g/dL 11/14/2022 10:52 AM EDT LABORATORY [facility] Alpha-1 Globulin 0.45(H) 0.10 - 0.30 g/dL [...] PM EDT 11/12/2022 2:41 PM EDT William Chavez MD LAB BLOOD ORDERA BLES Performing Organization Address City/[facility]/ZIP Co de Phone Number LABORATORY [facility] [address] [place] [address] * VITAMIN B12 (11/12/2022 2:41 PM EDT) [facility] Vitamin B12 1,244 232 - 1,245 pg/mL 11/13/2022 5:11 AM EDT LAB[facility]ATORY [facility] Blood Venous blood specimen / Unknown Venipuncture / Unknown 11/12/2022 2:41 PM EDT 11/12/2022 2:41 PM EDT William Chavez MD LAB BLOOD ORDERA BLES LAB[facility] [address] [place] [address] * (ABNORMAL) CRP (INFLAMMATORY MARKER) (11/12/2022 2:41 PM EDT) [facility] CRP (Inflammatory Marker) 138(H) <=5 mg/L 11/13/2022 4:38 AM EDT LAB[facility]ATORY [facility] Blood Venous blood specimen / Unknown Venipuncture / Unknown 11/12/2022 2:41 PM EDT 11/12/2022 2:41 PM EDT William Chavez MD LAB BLOOD ORDERA BLES Performing Organization Address [facility] Co de Phone Number LABORATORY [facility] [address] [place] [address] * (ABNORMAL) ERYTHROCYTE SEDIMENTATION RATE (ESR) (11/12/2022 2:41 PM EDT) Pathologist [facility] [place] ESR 97(H) <20 mm/hour 11/13/2022 1:26 AM EDT LABORATORY [facility] Blood Venous blood specimen / Unknown Venipuncture / Unknown 11/12/2022 2:41 PM EDT 11/12/2022 2:41 PM EDT William Chavez MD LAB BLOOD ORDERA BLES Performing Organization Address [facility] Co de Phone Number LAB[facility]ORY [facility] [address] [place] [address] * PHOSPHORUS (11/12/2022 2:41 PM EDT) Pathologist [facility] [place] Phosphorus 3.9 2.5 - 4.8 mg/dL 11/13/2022 4:38 AM EDT LABORATORY [facility] Blood Venous blood specimen / Unknown Venipuncture / Unknown 11/12/2022 2:41 PM EDT 11/12/2022 2:41 PM EDT William Chavez MD LAB BLOOD ORDERA BLES Performing Organization Address [facility] Co de Phone Number LAB[facility]ORY [facility] [address] [place] [address] * LIPID PANEL WITH DIRECT LDL IF TG IS HIGH (11/12/2022 2:41 PM EDT) Pathologist [facility] [place] Triglycerides 115 <=174 mg/dL 11/13/2022 4:38 AM EDT LABORATORY [facility] Comment: Triglyceride Reference Ranges (mg/dL): <150 Acceptable 150-174 Borderline high 175-499 High >=500 Very high Cholesterol 178 <200 mg/dL 11/13/2022 4:38 AM EDT LAB[facility]ATORY [facility] Comment: Total Cholesterol Reference Ranges (mg/dL): <200 Desirable 200-239 Borderline high >=240 High HDL Cholesterol 41 >39 mg/dL 4:38 AM EDT LABORATORY [facility] Comment: HDL Cholesterol Reference Ranges (mg/dL): >=60 High (Desirable) <50 Low (Undesirable) For Females <40 Low (Undesirable) For Males Non-HDL Cholesterol 137 <=159 mg/dL 11/13/2022 4:38 AM EDT LABORATORY [facility] Comment: Non-HDL Cholesterol Reference Range (mg/dL): <100 Target level for high risk ASCVD patient <130 Optimal for general population 130-159 Near optimal for general population 160-189 Borderline High 190-219 High >=220 Very High LDL Cholesterol 114 <=129 mg/dL 11/13/2022 4:38 AM EDT LAB[facility]ORY [facility] Comment: LDL Cholesterol Reference Ranges (mg/dL): <70 Target level for high risk ASCVD patient <100 Optimal for general population 100-129 Near optimal for general population 130-159 Borderline high 160-189 High >=190 Very high Blood Venous blood specimen / Unknown Venipuncture / Unknown 11/12/2022 2:41 PM EDT 11/12/2022 2:41 PM EDT William Chavez MD LAB BLOOD ORDERA BLES [facility] [address] [place] [address] * (ABNORMAL) COMPREHENSIVE METABOLIC PANEL (11/12/2022 2:41 [...] 5.0 g/dL 11/12/2022 3:49 PM EDT LABORATORY [place] 57-10 AST 14 10 - 50 U/L 11/12/2022 3:49 PM EDT LABORATORY [place] 57-10 Alkaline Phosphatase 71 35 - 130 [...] PM EDT 11/12/2022 2:41 PM EDT William Chavez MD LAB BLOOD ORDERA BLES [facility] [place] [address] [facility] [place] [address] * XR KNEE 4 OR MORE VIEWS [...] ELECTRONICALLY SIGNED BY ELISSA VELÁSQUEZ MD William Chavez MD RADIOLOGY (RAD G ENERAL) * XR HIP UNILAT 2-3 VIEWS INCLUDING [...] ELECTRONICALLY SIGNED BY ELISSA VELÁSQUEZ MD William Chavez MD RADIOLOGY (RAD G ENERAL) documented in [...] episode, moderate Thyroid nodule Nontoxic uninodular goiter Primary osteoarthritis of right hip Primary localized osteoarthrosis, pelvic region and thigh Acute pain of right knee documented in this encounter Care Teams De Icer Kit Assembler Relationship Specialty Start Date End Date William Chavez MD [address] [place] [address] PCP - General Internal Medicine 03/18/12 documented as of this encounter
--- OUTSIDE RECORDS SUMMARY | 2023-01-29 05:01 | External Medical Summary ---
Author Name Unknown Address Unknown Organization K01:[facility] [address] [place] [address] Laboratory Report Ordering Provider Test Date Status KATHY RAE 11/12/2022 14:41:40 Final Observation Date Value Abnormality Reference (Units ) Status Borrelia burgdorferi IgG and IgM [Interpretation] in Serum by Immunoassay 11/12/2022 14:41:40 Negative Negative Final Performing Location [facility] [address] [place] [address]
--- OUTSIDE RECORDS SUMMARY | 2023-01-29 05:01 | External Medical Summary ---
Author Name Unknown Address Unknown Organization K0G:LABORATORY [facility] [employer] [address] [place] [address] Laboratory Report Ordering Provider Test Date Status BUTCHCHIARA 11/12/2022 14:41:40 Final Observation Date Value Abnormality Reference (Units ) Status BUN 11/12/2022 14:41:40 25 Above high normal 6-20 (mg/dL) Final Creatinine 11/12/2022 14:41:40 1.4 Above high normal 0.6-1.2 (mg/dL) Final Glomerular filtration rate/1.73 sq M.predicted [Volume Rate/Area] in Serum, Plasma or Blood by Creatinine-based formula (CKD-EPI) 11/12/2022 14:41:40 51 Below low normal >=60 (mL/min) Final Performing Location LABORATORY [facility] [employer] [address] [place] [address]
--- OUTSIDE RECORDS SUMMARY | 2023-01-29 05:01 | External Medical Summary ---
Author Name Unknown Address Unknown Organization K0G:LABORATORY [facility] [address] [place] [address] Laboratory Report Ordering Provider Test Date Status KATHY RAE 11/12/2022 14:41:40 Final Observation Date Value Abnormality Reference (Units ) Status WBC, Total 11/12/2022 14:41:40 10.28 4.00-10.8 0 (K/uL) Final RBC 11/12/2022 14:41:40 5.12 4.50-5.25 (M/uL) Final Hemoglobin 11/12/2022 14:41:40 15.4 14.0-16.8 (g/dL) Final HCT 11/12/2022 14:41:40 47.4 40.0-48.4 (%) Final MCV 11/12/2022 14:41:40 92.6 82.0-99.5 (fL) Final MCH 11/12/2022 14:41:40 30.1 27.0-34.0 (pg) Final MCHC 11/12/2022 14:41:40 32.5 32.0-36.0 (g/dL) Final RDW 11/12/2022 14:41:40 14.5 11.5-15.5 (%) Final Platelets 11/12/2022 14:41:40 445 Above high normal 14 0-400 (K/uL) Final MPV 11/12/2022 14:41:40 10.0 6.6-11.1 ( fL) Final Performing Location LABORATORY [facility] [place] [address] [place] [address]
--- OUTSIDE RECORDS SUMMARY | 2023-01-29 05:01 | External Medical Summary | Summary of Care ---
Author Name Unknown Organization [facility] Address [address] [place] [address] Phone [phone] Care Team Providers Care Micropaleontologist Name Role Phone William Joseph MD Primary Care Provider + Reason for Visit * Reason Comments eRx-Medication Refill Encounter Details Date Type Department Care Team Description 11/10/2022 Refill Rheumatology [facility] [address] [place] [address] Harry Brooks MD [address] [place] [address] Allergies No known active allergiesdocumented as of this encounter (statuses as of 11/13/2022) Medications Medication Sig Dispensed Refills Start Date [...] 14 DAYS 2 Each 5 11/13/2022 Active Humira Pen 40 MG/0.4ML Subcutaneous Pen-injector Kit (Adalimumab) Inject 0.4 mL under the skin every 14 days. Dx Code M05.79, pt does not need a starter dose 0.8 mL 5 06/07/2022 3 Discontinued documented as of this encounter (statuses as of 11/13/2022) Active Problems Problem Noted Date Thoracic aortic [...] as of this encounter (statuses as of 11/13/2022) Resolved Problems Problem Noted Date Resolved Date Secondary hyperparathyroidism 08/10/2019 History of rheumatoid arthritis 09/04/2017 08/20/2018 History of rheumatoid arthritis 01/06/2016 07/27/2016 Kidney disease, chronic, stage III (GFR 30-59 ml /min) 08/09/2014 07/30/2017 Overview: Per CKD protocol #1 HTN, goal below 140/90 8 Kidney disease, chronic, stage III (GFR 30-59 ml /min) 03/24/2012 documented as of this encounter (statuses as of 11/13/2022) Immunizations Name Administration Dates Next Due COVID-19 mRNA, LNP-s, No Pre serve, 2-Dose Series ([employer]) 03/01/2021,08/03/2020,07/13/2020 Pneumococcal Conjugate Vacc, 13 Valent (Prevnar) [...] encounter Miscellaneous Notes * Telephone Encounter - Harry Brooks MD - 11/13/2022 12:53 PM EDTSigned Prescriptions: Disp Refills Humira Pen 40 MG/0.4ML Subcutaneous Pen-in*2 Each 5 Sig: INJECT 40 MG (0.4 ML) UNDER THE SKIN EVERY 14 DAYSAuthorizing Provider: HARRY BROOKS * Telephone Encounter - Harry Brooks MD - 11/13/2022 12:53 PM EDT Ok to fill * Telephone Encounter - Kandy Anand [facility] - 11/13/2022 10:36 AM EDTPending Prescriptions: Disp Refills Humira Pen 40 MG/0.4ML Subcutaneous Pen-in*2 Each 5 Sig: INJECT 40 MG (0.4 ML) UNDER THE SKIN EVERY 14 DAYS * Telephone Encounter - Kandy Anand [facility] - 11/13/2022 10:31 AM EDT Rheumatology: Refill Request(s) Per review of the refill parameters, Medication was NOT refilled d/t following concern: Labs done yesterday showed slightly increased creatinine. Please review labs and advise if refill is appropriate at this time or if any adjustments should be made to current therapy. CREAT Date Value Ref Range Status 11/12/2022 1.4 (H) 0.6 - 1.2 mg/dL Final 09/27/2022 1.3 (H) 0.6 - 1.2 mg/dL Final 12/06/2021 1.19 0.70 - 1.28 MG/DL 03/16/2021 1.25 (A) 0.70 - 1.18 MG/DL 03/16/2021 1.19 (A) 0.70 - 1.10 MG/DL 10/14/2020 1.32 (A) 0.70 - 1.18 MG/DL 03/15/2020 1.15 0.70 - 1.18 MG/DL Kandy Anand [facility] Clinical Pharmacist Rheumatology Department 11/13/2022,10:31 AM * [facility] En[facility] - 11/10/2022 9:21 PM EDTPending Prescriptions: Disp Refills Humira Pen 40 MG/0.4ML Subcutaneous Pen-in*2 Each Sig: INJECT 40 MG (0.4 ML) UNDER THE SKIN EVERY 14 DAYS * Telephone Encounter - Antoni Perry - 11/10/2022 9:20 PM EDT Did you pend patient's preferred pharmacy and medication before forwarding?yes Pharmacy: [facility] Pending Prescriptions: Disp Refills Humira Pen 40 MG/0.4ML Subcutaneous Pen-i*2 Each Sig: INJECT 40 MG (0.4 ML) UNDER THE SKIN EVERY 14 DAYS Last Visit: 08/22/2022 (in office), Visit date not found (telemedicine) Next Visit: 12/06/2022 If no future appointments scheduled, and last appointment is greater than a year ago, please schedule patient for a follow-up appointment Last date the medication was ordered: 06/07/2022 Is this request for a controlled substance?No Urine Drug Screen:No results found for this or any previous visit. Patient Phone Numbers [employer] [phone] Labs: Lab Results Component Value Date/Time CREAT 1.3 (H) 09/27/2022 02:37 PM CREAT 1.19 12/06/2021 12:00 AM CREAT 1.3 (H) 05/04/2016 12:09 PM POTASSIUM 5.5 (H) 09/27/2022 02:37 PM POTASSIUM 4.8 12/06/2021 12:00 AM POTASSIUM 4.6 05/04/2016 12:09 PM TSH 1.34 10/14/2020 12:00 AM TSH 0.82 06/24/2013 12:14 PM LDLCALC 106 (A) 12/06/2021 12:00 AM LDLCALC 119 05/04/2016 12:09 PM LDLDIRECT NOT APPLICABLE 05/04/2016 12:09 PM LDLDIRECT 107 06/11/2014 02:22 PM ALT 11 09/27/2022 02:37 PM ALT 21 12/06/2021 12:00 AM ALT 10 05/04/2016 12:09 PM documented in this encounter Plan of Treatment Upcoming Encounters Date Type Specialty Care Team Description 11/14/2022 Imaging Radiology 12/06/2022 Office Visit Rheumatology Harry Brooks MD [address] [place] [address] 06/13/2023 Office Visit Internal Medicine William Joseph MD [address] [place] [address] Health Maintenance Due Date Last Done Comments [...] Additional history exists CKD HGB USE SMARTSET 32222 11/13/202311/12, 11/12/2022, 09/27/2022, Additional history exists CKD PHOS USE SMARTSET 58491 11/13/202310/25, 03/16/2021, 03/15/2020, Additional history exists DTaP,Tdap,and [...] filedocumented as of this encounter Care Teams Micropaleontologist Relationship Specialty Start Date End Date William Joseph MD [address] [place] [address] PCP - General Internal Medicine 03/18/12 documented as of this encounter
--- OUTSIDE RECORDS SUMMARY | 2023-01-29 05:01 | External Medical Summary | Summary of Care ---
Author Name Unknown Organization [facility] Address [address] [place] [address] Phone [phone] Care Team Providers Care Water Quality Specialist Name Role Phone William Chavez MD Primary Care Provider + Reason for Referral * Evaluate & Treat - Unlimited Visits (Within 10 days (routine)) - Pending Review Specialty Diagnoses / Procedures Referred By Suha mitchell Referred To Contact Orthopaedic Surgery / Orthopedics Diagnoses Acute pain of right knee William Chavez MD [address] [place] [address] Referral ID Status Reason Start Date Expiration Date Visits Requested Visits Authorized [id number] Pending Review Specialty Services Required 11/18/2022 999 [...] knee William Chavez MD [address] [place] [address] Referral ID Status Reason Start Date Expiration Date Visits Requested Visits Authorized [id number] Pending Review Specialty Services Required 11/18/2022 999 [...] HEAD AND NECK William Chavez MD [address] [facility] [address] [place] [address] Referral ID Status Reason Start Date Expiration Date V isits Requested Visits Authorized [id number] Pending Review 11/07/2022 999 999 * Precert (Within 10 days (routine)) - Authorized Specialty Diagnoses / Procedures Referred By Suha mitchell Referred To Contact Radiology Diagnoses Bronchiectasis without complication (HCC) Chronic cough Procedures CT CHEST WO CONTRAST William Chavez MD [address] [facility] [address] [place] [address] Referral ID Status Reason Start Date Expiration Date V isits Requested Visits Authorized [id number] Authorized Precert 11/12/2022 01/11/2023 999 999 Reason [...] Description 11/07/2022 Office Visit General Internal Medicine [facility] [place] [address] [place] [address] William Chavez MD [address] [facility] [address] [place] [address] Benign hypertension with CKD (chronic kidney disease) [...] (HCC); Thyroid nodule; Need for hepatitis B vaccination Allergies No known active allergiesdocumented as of [...] Albumin/Creatinine Ratio 03/16/2022 CKD PHOS USE SMARTSET 74363 03/16/2022 ROS: CONSTITUTIONAL: as per hpi EYE: [...] level: Not on file Occupational History 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 Employer: [employer] Tobacco Use Smoking status: Former Packs/day: 2.00 [...] unspecified fever cause 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[facility]) E04.1 Thyroid nodule PLAN: Benign hypertension with [...] Will also check lyme Bronchiectasis without complication ([facility]) - CT CHEST WO CONTRAST Chronic cough [...] Note - William Chavez MD - 11/18/2022 4:26 PM EDTAddended by: WILLIAM CHAVEZ on: 11/18/2022 04:26 PM Modules accepted: Orders * Addendum Note - William Chavez MD - 11/18/2022 3:33 PM EDTAddended by: WILLIAM CHAVEZ on: 11/18/2022 03:33 PM Modules accepted: Orders * Addendum Note - William Chavez MD - 11/18/2022 3:31 PM EDTAddended by: WILLIAM CHAVEZ on: 11/18/2022 03:31 PM Modules accepted: Orders documented in this encounter Plan of Treatment Upcoming Encounters Date Type Specialty Care Team Description 12/06/2022 Office Visit Rheumatology Carlos Alberto Matthews MD [facility] [employer] [place] [address] 06/13/2023 Office Visit Internal Medicine William Chavez MD [address] [place] [address] Pending Results Name Type Priority Associated Diagnoses [...] Additional history exists CKD HGB USE SMARTSET 90435 11/13/202311/12, 11/12/2022, 09/27/2022, Additional history exists CKD PHOS USE SMARTSET 69125 11/13/202310/25, 03/16/2021, 03/15/2020, Additional history exists DTaP,Tdap,and [...] of this encounter Results * URINE IMMUNOFIXATION, JUDY PEREZ PROTEIN, RANDOM URINE (11/12/2022 2:46 PM EDT) Protein, Random Urine 54 mg/dL 11/14/2022 10:52 AM EDT LABORATORY [facility] Immunofixation Interpretation No monoclonal free light chains present (Bence Perez protein), in a background of glomerular proteinuria. 11/14/2022 10:52 AM EDT LABORATORY [facility] Urine Non-blood Collection / Unknown 11/12/2022 2:46 PM EDT 11/12/2022 2:53 PM EDT William Chavez MD LAB URINE ORDERA BLES Performing Organization Address [facility] de Phone Number LABORATORY [address] [address] * (ABNORMAL) ALBUMIN / CREATININE RATIO, URINE (11/12/2022 2:46 PM EDT) [facility] Albumin, Random Urine 11.30 mg/dL 11/13/2022 12:17 AM EDT LABORATORY [facility] Creatinine, Random Urine 277 mg/dL 11/13/2022 12:17 AM EDT LAB[facility]ATORY [facility] Albumin / Creatinine Ratio, Urine 41(H) <30 mg/g Creat 11/13/2022 12:17 AM EDT LAB[facility]ATORY [facility] Urine Urine specimen obtained by clean catch procedure / Unknown Non-blood Collection / Unknown 11/12/2022 2:46 PM EDT 11/12/2022 2:46 PM EDT [facility] LABORATORY [facility] - 11/13/2022 12:17 AM EDT Normal: <30 mg/g creatinine High: 30-300 mg/g creatinine Very High: >300 mg/g creatinine Nephrotic: >2200 mg/g creatinine William Chavez MD LAB URINE ORDERA BLES Performing Organization Address [facility] Co de Phone Number LABORATORY [address] [address] * HEPATITIS B SURFACE ANTIBODY (11/12/2022 2:41 PM EDT) [facility] Hepatitis B Surface Antibody, Quantitative <3.5 mIU/mL 11/13/2022 4:47 AM EDT LABORATORY [facility] Hepatitis B Surface Antibody, Qualitative Negative 11/13/2022 4:47 AM EDT LABORATORY [facility] Hepatitis B Surface Antibody, Interpretation NOT immune to Hepatitis B Virus 11/13/2022 4:47 AM EDT LABORATORY [facility] Comment: POSITIVE: >=11.5 mIU/mL INDETERMINATE: 8.5-<11.5 mIU/mL NEGATIVE: <8.5 mIU/mL Blood Venous blood specimen / Unknown Venipuncture / Unknown 11/12/2022 2:41 PM EDT 11/12/2022 2:41 PM EDT William Chavez MD LAB BLOOD ORDERA BLES LABORATORY [address] [address] * (ABNORMAL) SERUM PROTEIN ELECTROPHORESIS REFLEX PROFILE (11/12/2022 2:41 PM EDT) [facility] Protein 7.8 6.0 - 8.3 g/dL 11/14/2022 10:52 AM EDT LAB[facility]ATORY [facility] Albumin 2.84(L) 3.30 - 4.40 g/dL 11/14/2022 10:52 AM EDT LAB[facility]ATORY [facility] Alpha-1 Globulin 0.45(H) 0.10 - 0.30 g/dL [...] LAB BLOOD ORDERA BLES Performing Organization Address [facility]/ZIP Co de Phone Number LABORATORY [facility] [address] [place] [address] * VITAMIN B12 (11/12/2022 2:41 PM EDT) [facility] Vitamin B12 1,244 232 - 1,245 pg/mL 11/13/2022 5:11 AM EDT [facility] Blood Venous blood specimen / Unknown Venipuncture / Unknown 11/12/2022 2:41 PM EDT 11/12/2022 2:41 PM EDT William Chavez MD LAB BLOOD ORDERA BLES Performing Organization Address [facility] Co de Phone Number LABORATORY [facility] [address] [place] [address] * (ABNORMAL) CRP (INFLAMMATORY MARKER) (11/12/2022 2:41 PM EDT) [facility] CRP (Inflammatory Marker) 138(H) <=5 mg/L 11/13/2022 4:38 AM EDT [facility] Blood Venous blood specimen / Unknown Venipuncture / Unknown 11/12/2022 2:41 PM EDT 11/12/2022 2:41 PM EDT William Chavez MD LAB BLOOD ORDERA BLES Performing Organization Address [facility] Co de Phone Number LABORATORY [facility] [address] [place] [address] * (ABNORMAL) ERYTHROCYTE SEDIMENTATION RATE (ESR) (11/12/2022 2:41 PM EDT) [facility] ESR 97(H) <20 mm/hour 11/13/2022 1:26 AM EDT LAB[facility] Blood Venous blood specimen / Unknown Venipuncture / Unknown 11/12/2022 2:41 PM EDT 11/12/2022 2:41 PM EDT William Chavez MD LAB BLOOD ORDERA BLES LAB[facility]ATORY [facility] [address] [place] [address] * PHOSPHORUS (11/12/2022 2:41 PM EDT) Phosphorus 3.9 2.5 - 4.8 mg/dL 11/13/2022 4:38 AM EDT LAB[facility]ATORY [facility] Blood Venous blood specimen / Unknown Venipuncture / Unknown 11/12/2022 2:41 PM EDT 11/12/2022 2:41 PM EDT William Chavez MD LAB BLOOD ORDERA BLES Performing Organization Address [facility] Co de Phone Number LABORATORY [facility] [address] [place] [address] * LIPID PANEL WITH DIRECT LDL IF TG IS HIGH (11/12/2022 2:41 PM EDT) Triglycerides 115 <=174 mg/dL 11/13/2022 4:38 AM EDT LABORATORY [facility] Comment: Triglyceride Reference Ranges (mg/dL): <150 Acceptable 150-174 Borderline high 175-499 High >=500 Very high Cholesterol 178 <200 mg/dL 11/13/2022 4:38 AM EDT LABORATORY [facility] Comment: Total Cholesterol Reference Ranges (mg/dL): <200 Desirable 200-239 Borderline high >=240 High HDL Cholesterol 41 >39 mg/dL 4:38 AM EDT LABORATORY [facility] Comment: HDL Cholesterol Reference Ranges (mg/dL): >=60 High (Desirable) <50 Low (Undesirable) For Females <40 Low (Undesirable) For Males Non-HDL Cholesterol 137 <=159 mg/dL 11/13/2022 4:38 AM EDT LAB[facility]ATORY [facility] Comment: Non-HDL Cholesterol Reference Range (mg/dL): <100 Target level for high risk ASCVD patient <130 Optimal for general population 130-159 Near optimal for general population 160-189 Borderline High 190-219 High >=220 Very High LDL Cholesterol 114 <=129 mg/dL 11/13/2022 4:38 AM EDT LABORATORY [facility] Comment: LDL Cholesterol Reference Ranges (mg/dL): <70 Target level for high risk ASCVD patient <100 Optimal for general population 100-129 Near optimal for general population 130-159 Borderline high 160-189 High >=190 Very high Blood Venous blood specimen / Unknown Venipuncture / Unknown 11/12/2022 2:41 PM EDT 11/12/2022 2:41 PM EDT William Chavez MD LAB BLOOD ORDERA BLES LAB[facility]AT[facility] [address] [place] [address] * (ABNORMAL) COMPREHENSIVE METABOLIC PANEL (11/12/2022 2:41 PM EDT) BUN 25(H) 6 - 20 mg/dL 11/12/2022 3:49 PM EDT LABORATORY [place] [address] Creatinine 1.4(H) 0.6 - 1.2 mg/dL 11/12/2022 3:49 PM EDT LABORATORY [place] [facility] Estimated Glomerular Filtration Rate 51(L) >=60 [...] Chavez MD LAB BLOOD ORDERA BLES LABORATORY [place] [address] [place] [address] * XR KNEE 4 OR MORE VIEWS [...] prophylactic vaccination and inoculation against viral hepatitis Primary osteoarthritis of right hip Primary localized osteoarthrosis, pelvic region and thigh Acute pain of right knee documented in this encounter Care Teams Water Quality Specialist Relationship Specialty Start Date End Date William Chavez MD [address] [place] [id number] PCP - General Internal Medicine 03/18/12 documented as of this encounter
--- OUTSIDE RECORDS SUMMARY | 2023-01-29 05:01 | External Medical Summary ---
Author Name Unknown Address Unknown Organization [id number]:LABORATORY [facility] [address] [place] [id number] Laboratory Report Ordering Provider Test Date Status KATHY RAE 11/12/2022 14:41:40 Final Observation Date Value Abnormality Reference (Units ) Status SYNC LEUKOCYTES IN BLOOD BY AUTOMATED COUNT 11/12/2022 14:41:40 10.28 4.00-10.80 (K/uL) Final Segs 11/12/2022 14:41:40 76.2 Above high normal 40.0-75.0 (%) Final Lymphs % 11/12/2022 14:41:40 12.7 Below low normal 18.0-42.0 (%) Final Monos 11/12/2022 14:41:40 8.6 1.0-11.0 (%) Final Eosinophils 11/12/2022 14:41:40 2.0 0.0-6.0 (%) Final Basos 11/12/2022 14:41:40 0.5 0.0-2.0 (%) Final Absolute Segs 11/12/2022 14:41:40 7.83 Above high normal 1.80-7.70 (K/uL) Final Lymphs, absolute 11/12/2022 14:41:40 1.31 1.00-4.80 (K/ul) Final Monos, Abs 11/12/2022 14:41:40 0.88 0.00-1.10 (K/uL) Final Eos, Abs 11/12/2022 14:41:40 0.21 0.00-0.70 (K/uL) Final Basos, Abs 11/12/2022 14:41:40 0.05 0.00-0.20 (K/uL) Final Performing Location LABORATORY [facility] [address] [place] [id number]
--- OUTSIDE RECORDS SUMMARY | 2023-01-29 05:01 | External Medical Summary | Summary of Care ---
Author Name Unknown Organization [facility] Address [address] [place] [address] Phone [phone] Care Team Providers Care Heat Treater Apprentice Name Role Phone William Chavez MD Primary Care Provider + Reason for Referral * Evaluate & Treat - Unlimited Visits (Within 10 days (routine)) - Pending Review Specialty Diagnoses / Procedures Referred By Suha mitchell Referred To Contact Orthopaedic Surgery / Orthopedics Diagnoses Acute pain of right knee William Chavez MD [address] [place] [address] Referral ID Status Reason Start Date Expiration Date Visits Requested Visits Authorized [id number] Pending Review Specialty Services Required 11/18/2022 999 [...] knee William Chavez MD [address] [place] [address] Referral ID Status Reason Start Date Expiration Date Visits Requested Visits Authorized [id number] Pending Review Specialty Services Required 11/18/2022 999 [...] HEAD AND NECK William Chavez MD [address] [facility] [address] [place] [address] Referral ID Status Reason Start Date Expiration Date V isits Requested Visits Authorized [id number] Pending Review 11/07/2022 999 999 * Precert (Within 10 days (routine)) - Authorized Specialty Diagnoses / Procedures Referred By Suha mitchell Referred To Contact Radiology Diagnoses Bronchiectasis without complication (HCC) Chronic cough Procedures CT CHEST WO CONTRAST William Chavez MD [address] [facility] [address] [place] [address] Referral ID Status Reason Start Date Expiration Date V isits Requested Visits Authorized [id number] Authorized Precert 11/12/2022 01/11/2023 999 999 Reason [...] Office Visit General Internal Medicine [facility] [place] [address] [place] [address] William Chavez MD [address] [facility] [address] [place] [address] Benign hypertension with CKD (chronic kidney disease) [...] Albumin/Creatinine Ratio 03/16/2022 CKD PHOS USE SMARTSET 20005 03/16/2022 ROS: CONSTITUTIONAL: as per hpi EYE: [...] level: Not on file Occupational History 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 Employer: [employer] Tobacco Use Smoking status: Former Packs/day: 2.00 [...] Office Visit Rheumatology Carlos Alberto Matthews MD [address] [place] [address], [place] [address] 06/13/2023 Office Visit Internal Medicine William Chavez MD [address] [facility] [place] [address] Pending Results Name Type Priority Associated Diagnoses [...] Additional history exists CKD HGB USE SMARTSET 39492 11/13/202311/12, 11/12/2022, 09/27/2022, Additional history exists CKD PHOS USE SMARTSET 24040 11/13/202310/25, 03/16/2021, 03/15/2020, Additional history exists DTaP,Tdap,and [...] 54 mg/dL 11/14/2022 10:52 AM EDT [facility] Immunofixation Interpretation No monoclonal free light chains present (Bence Preez protein), in a background of glomerular proteinuria. 11/14/2022 10:52 AM EDT [facility] Urine Non-blood Collection / Unknown 11/12/2022 2:46 PM EDT 11/12/2022 2:53 PM EDT William Chavez MD LAB URINE ORDERA BLES Performing Organization Address [facility] de Phone Number [facility]ORY [facility] [address] [place] [address] * (ABNORMAL) ALBUMIN / CREATININE RATIO, URINE (11/12/2022 2:46 PM EDT) Albumin, Random Urine 11.30 mg/dL 11/13/2022 12:17 AM EDT [facility] Creatinine, Random Urine 277 mg/dL 11/13/2022 12:17 AM EDT [facility] Albumin / Creatinine Ratio, Urine 41(H) <30 mg/g Creat 11/13/2022 12:17 AM EDT [facility] Urine Urine specimen obtained by clean catch procedure / Unknown Non-blood Collection / Unknown 11/12/2022 2:46 PM EDT 11/12/2022 2:46 PM EDT [facility] LAB[facility] - 11/13/2022 12:17 AM EDT Normal: <30 mg/g creatinine High: 30-300 mg/g creatinine Very High: >300 mg/g creatinine Nephrotic: >2200 mg/g creatinine William Chavez MD LAB URINE ORDERA BLES Performing Organization Address [facility] de Phone Number [facility] [address] [place] [address] * HEPATITIS B SURFACE ANTIBODY (11/12/2022 2:41 PM EDT) Hepatitis B Surface Antibody, Quantitative <3.5 mIU/mL 11/13/2022 4:47 AM EDT [facility] Hepatitis B Surface Antibody, Qualitative Negative 11/13/2022 4:47 AM EDT [facility] Hepatitis B Surface Antibody, Interpretation NOT immune to Hepatitis B Virus 11/13/2022 4:47 AM EDT LAB[facility] Comment: POSITIVE: >=11.5 mIU/mL INDETERMINATE: 8.5-<11.5 mIU/mL NEGATIVE: <8.5 mIU/mL Blood Venous blood specimen / Unknown Venipuncture / Unknown 11/12/2022 2:41 PM EDT 11/12/2022 2:41 PM EDT William Chavez MD LAB BLOOD ORDERA BLES [facility] [address] [place] [address] * (ABNORMAL) SERUM PROTEIN ELECTROPHORESIS REFLEX PROFILE (11/12/2022 2:41 PM EDT) Pathologist [facility] Protein 7.8 6.0 - 8.3 g/dL 11/14/2022 [...] Chavez MD LAB BLOOD ORDERA BLES LAB[facility] [address] [place] [address] * VITAMIN B12 (11/12/2022 2:41 PM EDT) Vitamin B12 1,244 232 - 1,245 pg/mL 11/13/2022 5:11 AM EDT LAB[facility] Blood Venous blood specimen / Unknown Venipuncture / Unknown 11/12/2022 2:41 PM EDT 11/12/2022 2:41 PM EDT William Chavez MD LAB BLOOD ORDERA BLES Performing Organization Address City/[facility]/ZIP Co de Phone Number [facility]ORY [facility] [address] [place] [address] * (ABNORMAL) CRP (INFLAMMATORY MARKER) (11/12/2022 2:41 PM EDT) Pathologist [facility] CRP (Inflammatory Marker) 138(H) <=5 mg/L 11/13/2022 4:38 AM EDT [facility] Blood Venous blood specimen / Unknown Venipuncture / Unknown 11/12/2022 2:41 PM EDT 11/12/2022 2:41 PM EDT William Chavez MD LAB BLOOD ORDERA BLES Performing Organization Address [facility]/ZIP Co de Phone Number [facility] [address] [place] [address] * (ABNORMAL) ERYTHROCYTE SEDIMENTATION RATE (ESR) (11/12/2022 2:41 PM EDT) Pathologist [facility] ESR 97(H) <20 mm/hour 11/13/2022 1:26 AM EDT [facility] Blood Venous blood specimen / Unknown Venipuncture / Unknown 11/12/2022 2:41 PM EDT 11/12/2022 2:41 PM EDT William Chavez MD LAB BLOOD ORDERA BLES [facility] [address] [place] [address] * PHOSPHORUS (11/12/2022 2:41 PM EDT) Phosphorus 3.9 2.5 - 4.8 mg/dL 11/13/2022 4:38 AM EDT [facility] Blood Venous blood specimen / Unknown Venipuncture / Unknown 11/12/2022 2:41 PM EDT 11/12/2022 2:41 PM EDT William Chavez MD LAB BLOOD ORDERA BLES [facility] [address] [place] [address] * LIPID PANEL WITH DIRECT LDL IF TG IS HIGH (11/12/2022 2:41 PM EDT) Triglycerides 115 <=174 mg/dL 11/13/2022 4:38 AM EDT LAB[facility] Comment: Triglyceride Reference Ranges (mg/dL): <150 Acceptable 150-174 Borderline high 175-499 High >=500 Very high Cholesterol 178 <200 mg/dL 11/13/2022 4:38 AM EDT LAB[facility] Comment: Total Cholesterol Reference Ranges (mg/dL): <200 Desirable 200-239 Borderline high >=240 High HDL Cholesterol 41 >39 mg/dL 4:38 AM EDT LAB[facility] Comment: HDL Cholesterol Reference Ranges (mg/dL): >=60 High (Desirable) <50 Low (Undesirable) For Females <40 Low (Undesirable) For Males Non-HDL Cholesterol 137 <=159 mg/dL 11/13/2022 4:38 AM EDT LAB[facility] Comment: Non-HDL Cholesterol Reference Range (mg/dL): <100 Target level for high risk ASCVD patient <130 Optimal for general population 130-159 Near optimal for general population 160-189 Borderline High 190-219 High >=220 Very High LDL Cholesterol 114 <=129 mg/dL 11/13/2022 4:38 AM EDT LAB[facility] Comment: LDL Cholesterol Reference Ranges (mg/dL): <70 Target level for high risk ASCVD patient <100 Optimal for general population 100-129 Near optimal for general population 130-159 Borderline high 160-189 High >=190 Very high Blood Venous blood specimen / Unknown Venipuncture / Unknown 11/12/2022 2:41 PM EDT 11/12/2022 2:41 PM EDT William Chavez MD LAB BLOOD ORDERA BLES [facility] [address] [place] [address] * (ABNORMAL) COMPREHENSIVE METABOLIC PANEL [...] LAB BLOOD ORDERA BLES Performing Organization Address City/State/[facility] Co de Phone Number LABORATORY [place] [address] [place] [address] * XR KNEE 4 OR MORE VIEWS [...] knee documented in this encounter Care Teams Heat Treater Apprentice Relationship Specialty Start Date End Date William Chavez MD [address] [place] [address] PCP - General Internal Medicine 03/18/12 documented as of this encounter
--- OUTSIDE RECORDS SUMMARY | 2023-01-29 05:01 | External Medical Summary | Summary of Care ---
Author Name Unknown Organization [facility] Address [address] [place] [address] Phone [phone] Care Team Providers Care Utility Agent Name Role Phone William Joseph MD Primary Care Provider + Reason for Visit * Reason Onset Date Comments Appointment 11/09/2022 Encounter Details Date Type Department Care Team Description 11/09/2022 Telephone General Internal Medicine [facility] [place] [address] [facility] [place] [id number] William Joseph MD 200 [place] [address] Appointment Allergies No known active allergiesdocumented as of this encounter (statuses as of 11/14/2022) Medications Medication Sig Dispensed Refills Start Date [...] as of this encounter (statuses as of 11/14/2022) Active Problems Problem Noted Date Thoracic aortic [...] as of this encounter (statuses as of 11/14/2022) Resolved Problems Problem Noted Date Resolved Date Secondary hyperparathyroidism 08/10/2019 History of rheumatoid arthritis 09/04/2017 08/20/2018 History of rheumatoid arthritis 01/06/2016 07/27/2016 Kidney disease, chronic, stage III (GFR 30-59 ml /min) 08/09/2014 07/30/2017 Overview: Per CKD protocol #1 HTN, goal below 140/90 8 Kidney disease, chronic, stage III (GFR 30-59 ml /min) 03/24/2012 documented as of this encounter (statuses as of 11/14/2022) Immunizations Name Administration Dates Next Due COVID-19 mRNA, LNP-s, No Pre serve, 2-Dose Series ([employer]) 03/01/2021,08/03/2020,07/13/2020 Pneumococcal Conjugate Vacc, 13 Valent (Prevnar) [...] * Telephone Encounter - PAULA Gomes - 11/14/2022 8:50 AM EDT Ad [employer] message sent 11/14 * Telephone Encounter - PAULA Gomes - 11/12/2022 10:11 AM EDT LMOM 11/12 * Telephone Encounter - PAULA Weir - 11/09/2022 12:09 PM EDT US HEAD AND NECK [USNECK] (Order [id number]) documented in this encounter Plan of Treatment Upcoming Encounters Date Type Specialty Care Team Description 11/14/2022 Imaging Radiology 12/06/2022 Office Visit Rheumatology Carlos Alberto Matthews MD [address] [place] [address] 06/13/2023 Office Visit Internal Medicine William Joseph MD [address] [facility] [place] [address] Health Maintenance Due Date Last Done Comments [...] Additional history exists CKD HGB USE SMARTSET 76516 11/13/202311/12, 11/12/2022, 09/27/2022, Additional history exists CKD PHOS USE SMARTSET 14884 11/13/202310/25, 03/16/2021, 03/15/2020, Additional history exists DTaP,Tdap,and [...] filedocumented as of this encounter Care Teams Utility Agent Relationship Specialty Start Date End Date William Joseph MD [address] [place] [address], [place] [address] PCP - General Internal Medicine 03/18/12 documented as of this encounter
--- OUTSIDE RECORDS SUMMARY | 2023-01-29 05:01 | External Medical Summary | Summary of Care ---
Author Name Unknown Organization [facility] Address [address] [place] [address] Phone [phone] Care Team Providers Care Clinic Office Assistant Name Role Phone William Joseph MD Primary Care Provider + Reason for Visit * Reason Onset Date Comments Appointment 11/09/2022 Encounter Details Date Type Department Care Team Description 11/09/2022 Telephone General Internal Medicine [facility] [place] [address] [facility] [place] [phone] William Joseph MD 200 [place] [address] Appointment Allergies No known active allergiesdocumented as of this encounter (statuses as of 11/15/2022) Medications Medication Sig Dispensed Refills Start Date [...] as of this encounter (statuses as of 11/15/2022) Active Problems Problem Noted Date Thoracic aortic [...] as of this encounter (statuses as of 11/15/2022) Resolved Problems Problem Noted Date Resolved Date Secondary hyperparathyroidism 08/10/2019 History of rheumatoid arthritis 09/04/2017 08/20/2018 History of rheumatoid arthritis 01/06/2016 07/27/2016 Kidney disease, chronic, stage III (GFR 30-59 ml /min) 08/09/2014 07/30/2017 Overview: Per CKD protocol #1 HTN, goal below 140/90 8 Kidney disease, chronic, stage III (GFR 30-59 ml /min) 03/24/2012 documented as of this encounter (statuses as of 11/15/2022) Immunizations Name Administration Dates Next Due COVID-19 mRNA, LNP-s, No Pre serve, 2-Dose Series ([employer]) 03/01/2021,08/03/2020,07/13/2020 Pneumococcal Conjugate Vacc, 13 Valent (Prevnar) [...] * Telephone Encounter - PAULA Gomes - 11/15/2022 10:39 AM EDT Letter sent, 3rd attempt * Telephone Encounter - PAULA Gomes - 11/14/2022 8:50 AM EDT myG message sent 11/14 * Telephone Encounter - PAULA Gomes - 11/12/2022 10:11 AM EDT LMOM 11/12 * Telephone Encounter - PAULA Weir - 11/09/2022 12:09 PM EDT US HEAD AND NECK [USNECK] (Order [id number]) documented in this encounter Plan of Treatment Upcoming Encounters Date Type Specialty Care Team Description 12/06/2022 Office Visit Rheumatology Carlos Alberto Matthews MD [address] [facility] [place] [address] 06/13/2023 Office Visit Internal Medicine William Joseph MD 200 [facility] [place], [place] [phone] Health Maintenance Due Date Last Done Comments [...] Additional history exists CKD HGB USE SMARTSET 98061 11/13/202311/12, 11/12/2022, 09/27/2022, Additional history exists CKD PHOS USE SMARTSET 24939 11/13/202310/25, 03/16/2021, 03/15/2020, Additional history exists DTaP,Tdap,and [...] filedocumented as of this encounter Care Teams Clinic Office Assistant Relationship Specialty Start Date End Date William Joseph MD [address] [place] [address], [place] [address] PCP - General Internal Medicine 03/18/12 documented as of this encounter
--- OUTSIDE RECORDS SUMMARY | 2023-01-29 05:01 | External Medical Summary ---
Author Name Unknown Address Unknown Organization K01:[facility] - [address] [facility] [address] Laboratory Report Ordering Provider Test Date Status KATHY RAE 11/12/2022 14:41:40 Final Observation Date Value Abnormality Reference (Units) Status Protein 11/12/2022 14:41:40 7.8 6.0-8.3 (g/dL) Final Albumin/Protein.total [Pure mass fraction] in Serum or Plasma by Electrophoresis 11/12/2022 14:41:40 2.84 Below low normal 3.30-4.40 (g/dL) Final Alpha 1 globulin/Protein.tota l [Pure mass fraction] in Serum or Plasma by Electrophoresis 11/12/2022 14:41:40 0.45 Above high normal 0.10-0.30 (g/dL) Final Alpha 2 globulin/Protein.tota l [Pure mass fraction] in Serum or Plasma by Electrophoresis 11/12/2022 14:41:40 1.23 Above high normal 0.60-1.00 (g/dL) Final Beta globulin/Protein.tota l [Pure mass fraction] in Serum or Plasma by Electrophoresis 11/12/2022 14:41:40 1.09 0.80-1.30 (g/dL) Final Gamma globulin/Protein.tota l [Pure mass fraction] in Serum or Plasma by Electrophoresis 11/12/2022 14:41:40 2.19 Above high normal 0.70-1.70 (g/dL) Final Protein Fractions [Interpretation] in Serum or Plasma by Electrophoresis Narrative 11/12/2022 14:41:40 No paraprotein detected. There is a polyclonal increase in the gamma fraction. This finding may be seen in association with chronic inflammation, infection, chronic liver disease or collagen disorders. Final Performing Location [facility] - [address] [facility] [address] [facility] [address]
--- OUTSIDE RECORDS SUMMARY | 2023-01-29 05:01 | External Medical Summary | Summary of Care ---
Author Name Unknown Organization [facility] Address [address] [place] [address] Phone [phone] Care Team Providers Care Market Research Lead Name Role Phone William Joseph MD Primary Care Provider + Reason for Visit * Reason Comments Outpatient Testing Encounter Details Date Type Department Care Team Description 11/12/2022 Laboratory Laboratory, [facility] [address] [facility] [place] [address] [facility] [address] [place] [address] Benign hypertension with CKD (chronic kidney disease) stage III ([facility]); Mixed hyperlipidemia; Rheumatoid arthritis involving multiple sites with positive rheumatoid factor ([facility]); Pernicious anemia; MGUS (monoclonal gammopathy of unknown significance); Immunity status testing; Acute pain of right knee Allergies No known active allergiesdocumented as of this encounter (statuses as of 11/12/2022) Medications Medication Sig Dispensed Refills Start Date End Date Status Cholecalciferol (VITAMIN D3) 50 MCG (1999) Tablet Take 0.5 Tablets by mouth. Every 2 - 3 days 0 Active Benzonatate 100 MG Oral Capsule (Iain Silva)Indications:Co ugh Take by mouth 1 Capsule 2 [...] the morning. 30 Tablet 5 05/10/2022 Active Humira Pen 40 MG/0.4ML Subcutaneous Pen-injector Kit (Adalimumab) Inject 0.4 mL under the skin every 14 days. Dx Code M05.79, pt does not need a starter dose 0.8 mL 5 06/07/2022 Active Benazepril HCl 5 MG Oral Tablet [...] after that 30 Tablet 5 11/07/2022 Active documented as of this encounter (statuses as of 11/12/2022) Active Problems Problem Noted Date Thoracic aortic [...] as of this encounter (statuses as of 11/12/2022) Resolved Problems Problem Noted Date Resolved Date Secondary hyperparathyroidism 08/10/2019 History of rheumatoid arthritis 09/04/2017 08/20/2018 History of rheumatoid arthritis 01/06/2016 07/27/2016 Kidney disease, chronic, stage III (GFR 30-59 ml /min) 08/09/2014 07/30/2017 Overview: Per CKD protocol #1 HTN, goal below 140/90 8 Kidney disease, chronic, stage III (GFR 30-59 ml /min) 03/24/2012 documented as of this encounter (statuses as of 11/12/2022) Immunizations Name Administration Dates Next Due COVID-19 [...] on file documented as of this encounter Plan of Treatment Upcoming Encounters Date Type Specialty Care Team Description 11/14/2022 Imaging Radiology 12/06/2022 Office Visit Rheumatology Carlos Alberto Matthews MD [address] [place] [address] 06/13/2023 Office Visit Internal Medicine William Joseph MD [address] [facility] [place] [address] Pending Results Name Type Priority Associated Diagnoses Date /Time COMPREHENSIVE METABOLIC PANEL Lab Routine 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) Mixed hyperlipidemia 11/12/2022 2:41 PM EDT LIPID PANEL WITH DIRECT LDL IF TG IS HIGH Lab Routine 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) Mixed hyperlipidemia 11/12/2022 2:41 PM EDT PHOSPHORUS Lab Routine 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) 11/12/2022 2:41 PM EDT ERYTHROCYTE SEDIMENTATION RATE (ESR) Lab Routine Rheumatoid arthritis involving multiple sites with positive rheumatoid factor (HCC) 11/12/2022 2:41 PM EDT CRP (INFLAMMATORY MARKER) Lab Routine Rheumatoid arthritis involving multiple sites with positive rheumatoid factor (HCC) 11/12/2022 2:41 PM EDT VITAMIN B12 Lab Routine Pernicious anemia 11/12/2022 2:41 PM EDT SERUM PROTEIN ELECTROPHORESIS REFLEX PROFILE Lab Routine MGUS (monoclonal gammopathy of unknown significance) 11/12/2022 2:41 PM EDT HEPATITIS B SURFACE ANTIBODY Lab Routine Immunity status testing 11/12/2022 2:41 PM EDT LYME DISEASE ANTIBODY SCREEN WITH REFLEX TO CONFIRMATION Lab Routine Acute pain of right knee 11/12/2022 2:41 PM EDT LYME DISEASE ANTIBODY SCREEN Lab Routine Acute pain of right knee 11/12/2022 2:41 PM EDT ALBUMIN / CREATININE RATIO, URINE Lab Routine 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) 11/12/2022 2:46 PM EDT URINE IMMUNOFIXATION, BENCE PEREZ PROTEIN, RANDOM URINE Lab Routine MGUS (monoclonal gammopathy of unknown significance) 11/12/2022 2:46 PM EDT Health Maintenance Due Date Last Done Comments Hepatitis B (1 of 3 - Risk 3-dose series) 2003 FOBT ANNUALLY,AGES 18-90 03/22/2017 03/22/2016, 09/26 Zoster Vaccines (2 of 2) 12/26/2020 10/31/2020, 12/25 COVID-19 Vaccine (4 - Booster for Pfizer series) 04/26/2021 03/01/2021, 08/03/2020, 07/13/2020 Albumin/Creatinine Ratio 03/16/2022 021, 08/03/2016, 01/01/2014 CKD PHOS USE SMARTSET 25297 03/16/202202/25, 03/15/2020, 10/22/2018, Additional history exists Depression, Most Recent Score >= 10 (will fire each visit until score < 10) 11/08/2022 11/07/2022 GFR 03/30/2023 09/27/2022, 11/24, 03/16/2021, Additional history exists CKD HGB USE SMARTSET 80842 11/13/202311/12, 11/12/2022, 09/27/2022, Additional history exists DTaP,Tdap,and Td Vaccines (2 [...] Procedure Name Priority Date/Time Associated Diagnosis Comments DIFFERENTIAL, AUTOMATED Routine 11/12/2022 2:41 PM EDT 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) CBC WITH WBC DIFFERENTIAL Routine 11/12/2022 2:41 PM EDT 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) CBC Routine 11/12/2022 2:41 PM EDT 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) documented in this encounter Results * (ABNORMAL) DIFFERENTIAL, AUTOMATED (11/12/2022 2:41 PM EDT) WBC 10.28 4.00 - 10.80 K/uL 11/12/2022 2:58 PM EDT [facility] [place] [facility] Neutrophils % 76.2(H) 40.0 - 75.0 % 11/12/2022 2:58 PM EDT [facility] [place] [facility]10 Lymphocytes % 12.7(L) 18.0 - 42.0 % 11/12/2022 2:58 PM EDT [facility] [place] [facility] Monocytes % 8.6 1.0 - 11.0 % 11/12/2022 2:58 PM EDT [facility] [place] [facility]10 Eosinophils % 2.0 0.0 - 6.0 % 11/12/2022 2:58 PM EDT [facility] [place] [facility] Basophils % 0.5 0.0 - 2.0 % 11/12/2022 2:58 PM EDT [facility] [place] [facility] Absolute Neutrophils 7.83(H) 1.80 - 7.70 K/uL 11/12/2022 2:58 PM EDT [facility] [place] [facility] Absolute Lymphocytes 1.31 1.00 - 4.80 K/ul 11/12/2022 2:58 PM EDT [facility] Absolute Monocytes 0.88 0.00 - 1.10 K/uL 11/12/2022 2:58 PM EDT [facility] [place] [facility]10 Absolute Eosinophils 0.21 0.00 - 0.70 K/uL 11/12/2022 2:58 PM EDT [facility] [place] [facility] Absolute Basophils 0.05 0.00 - 0.20 K/uL 11/12/2022 2:58 PM EDT [facility] [place] [facility]10 Blood Venous blood specimen / Unknown Venipuncture / Unknown 11/12/2022 2:41 PM EDT 11/12/2022 2:41 PM EDT William Joseph MD LAB BLOOD [facility] [place] [address] [place] [id number] * (ABNORMAL) CBC (11/12/2022 2:41 PM EDT) WBC 10.28 4.00 - 10.80 K/uL 11/12/2022 2:58 PM EDT [facility] [place] [facility] RBC 5.12 4.50 - 5.25 M/uL 11/12/2022 2:58 PM EDT [facility] [place] [facility]10 HGB 15.4 14.0 - 16.8 g/dL 11/12/2022 2:58 PM EDT [facility] [place] [facility]10 HCT 47.4 40.0 - 48.4 % 11/12/2022 2:58 PM EDT [facility] [place] [facility]10 MCV 92.6 82.0 - 99.5 fL 11/12/2022 2:58 PM EDT [facility] [place] [facility]10 MCH 30.1 27.0 - 34.0 pg 11/12/2022 2:58 PM EDT [facility] [place] [facility]10 MCHC 32.5 32.0 - 36.0 g/dL 11/12/2022 2:58 PM EDT [facility] [place] [facility]10 RDW 14.5 11.5 - 15.5 % 11/12/2022 2:58 PM EDT [facility] [place] [facility]10 PLT 445(H) 140 - 400 K/uL 11/12/2022 2:58 PM EDT [facility] [place] [facility] MPV 10.0 6.6 - 11.1 fL 11/12/2022 2:58 PM EDT [facility] [place] [facility]10 Blood Venous blood specimen / Unknown Venipuncture / Unknown 11/12/2022 2:41 PM EDT 11/12/2022 2:41 PM EDT William Joseph MD LAB BLOOD [facility] [place] [facility] [place] [address] documented in this encounter Visit Diagnoses Diagnosis 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, or unspecified Mixed hyperlipidemia Rheumatoid arthritis involving multiple sites with positive rheumatoid factor (HCC) Pernicious anemia MGUS (monoclonal gammopathy of unknown significance) Monoclonal paraproteinemia Immunity status testing Antibody response examination Acute pain of right knee documented in this encounter Care Teams Market Research Lead Relationship Specialty Start Date End Date William Joseph MD [address] [place] [address] PCP - General Internal Medicine 03/18/12 documented as of this encounter
--- OUTSIDE RECORDS SUMMARY | 2023-01-29 05:02 | External Medical Summary | Summary of Care ---
Author Name Unknown Organization [facility] Address [address] [place] [address] Phone [phone] Care Team Providers Care Greeting Card Writer Name Role Phone William Joseph MD Primary Care Provider + Encounter Details Date Type Department Care Team Description 11/09/2022 Telephone General Internal Medicine [facility] [address] [facility] [place] [phone] William Joseph MD 200 [place] [address] Allergies No known active allergiesdocumented as of this encounter (statuses as of 11/09/2022) Medications Medication Sig Dispensed Refills Start Date [...] as of this encounter (statuses as of 11/09/2022) Active Problems Problem Noted Date Thoracic aortic [...] as of this encounter (statuses as of 11/09/2022) Resolved Problems Problem Noted Date Resolved Date Secondary hyperparathyroidism 08/10/2019 History of rheumatoid arthritis 09/04/2017 08/20/2018 History of rheumatoid arthritis 01/06/2016 07/27/2016 Kidney disease, chronic, stage III (GFR 30-59 ml /min) 08/09/2014 07/30/2017 Overview: Per CKD protocol #1 HTN, goal below 140/90 8 Kidney disease, chronic, stage III (GFR 30-59 ml /min) 03/24/2012 documented as of this encounter (statuses as of 11/09/2022) Immunizations Name Administration Dates Next Due COVID-19 mRNA, LNP-s, No Pre serve, 2-Dose Series ([employer]) 03/01/2021,08/03/2020,07/13/2020 Pneumococcal Conjugate Vacc, 13 Valent (Prevnar) [...] EDT US HEAD AND NECK [USNECK] (Order [id number]) documented in this encounter Plan of Treatment Upcoming Encounters Date Type Specialty Care Team Description 12/06/2022 Office Visit Rheumatology Carlos Alberto Matthews MD [address] [employer] [place] [address] 06/13/2023 Office Visit Internal Medicine William Joseph MD [address] [place] [address] Health Maintenance Due Date Last Done Comments Hepatitis B (1 of 3 - Risk 3-dose series) 2003 FOBT ANNUALLY,AGES 18-90 03/22/2017 03/22/2016, 09/26 Zoster Vaccines (2 of 2) 12/26/2020 10/31/2020, 12/25 COVID-19 Vaccine (4 - Booster for Pfizer series) 04/26/2021 03/01/2021, 08/03/2020, 07/13/2020 Albumin/Creatinine Ratio 03/16/2022 021, 08/03/2016, 01/01/2014 CKD PHOS USE SMARTSET 99495 03/16/202202/25, 03/15/2020, 10/22/2018, Additional history exists Depression, Most Recent Score >= 10 (will fire each visit until score < 10) 11/08/2022 11/07/2022 GFR 03/30/2023 09/27/2022, 0707/2021, 03/16/2021, Additional history exists CKD HGB USE SMARTSET 27077 09/28/202309/27, 09/27/2022, 01/09/2022, Additional history exists DTaP,Tdap,and Td Vaccines (2 [...] filedocumented as of this encounter Care Teams Greeting Card Writer Relationship Specialty Start Date End Date William Joseph MD [address] [place] [address], [place] [address] PCP - General Internal Medicine 03/18/12 documented as of this encounter
--- OUTSIDE RECORDS SUMMARY | 2023-01-29 05:02 | External Medical Summary ---
Author Name Unknown Address Unknown Organization K01:LABORATORY [facility] - [facility] [address] [place] [address] Laboratory Report Ordering Provider Test Date Status KATHY RAE 11/12/2022 14:41:40 Final Observation Date Value Abnormality Reference (Units) Status Hepatitis B virus surface Ab [Units/volume] in Serum or Plasma by Immunoassay 11/12/2022 14:41:40 <3.5 (mIU/mL) Final Hepatitis B virus surface Ab [Presence] in Serum by Immunoassay 11/12/2022 14:41:40 Negative Final HEPATITIS B SURFACE ANTIBODY, INTERPRETATION 11/12/2022 14:41:40 NOT immune to Hepatitis B Virus Final Performing Location LAB[facility]ATORY [facility] - [address] [place] [address]
--- OUTSIDE RECORDS SUMMARY | 2023-01-29 05:02 | External Medical Summary | Summary of Care ---
Author Name Unknown Organization [facility] Address [address] [place] [address] Phone [phone] Care Team Providers Care Still Worker Helper Name Role Phone William Joseph MD Primary Care Provider + Reason for Visit * Reason Onset Date Comments Health Maintenance 10/10/2022 Encounter Details Date Type Department Care Team Description 10/10/2022 Telephone General Internal Medicine [facility] [place] [address] [facility] [place] [address] William Joseph MD 200 [place] [address] Health Maintenance Allergies No known active allergiesdocumented as of this encounter (statuses as of 10/10/2022) Medications Medication Sig Dispensed Refills Start Date End Date Status Cholecalciferol (VITAMIN D3) 50 MCG (1999) Tablet Take 0.5 Tablets by mouth. Every 2 - 3 days 0 Active Benzonatate 100 MG Oral Capsule (Tessalon Perles)Indications:C ough Take by mouth 1 Capsule 2 times a day as needed for Cough. Do not cut, crush, or chew. 50 Capsule 2 09/27/2021 Active Fluticasone Propionate HFA 44 MCG/ACT Inhalation Aerosol (Flovent HFA)Indications:Bron chiectasis (HCC) Inhale by mouth 1 Puff in the morning AND 1 Puff before bedtime. 10.6 g 5 02/13/2022 Active Cyanocobalamin 1000 MCG/ML Injection Solution (Cyanocobalamin)Yessenia cations:Pernicious anemia inject 1ml into a large muscle every month 1 mL 4 04/05/2022 Active predniSONE 5 MG Oral Tablet (Deltasone)Indicatio ns:H/O rheumatoid arthritis Take 1 Tablet (5 mg) by mouth in the morning. 30 Tablet 5 05/10/2022 Active Humira Pen 40 MG/0.4ML Subcutaneous Pen-injector Kit (Adalimumab) Inject 0.4 mL under the skin every 14 days. Dx Code M05.79, pt does not need a starter dose 0.8 mL 5 06/07/2022 Active Benazepril HCl 5 MG Oral Tablet (Lotensin)Indication s: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) Take 1 Tablet by mouth in the morning. 90 Tablet 1 06/11/2022 Active amLODIPine Besy-Benazepril HCl 2.5-10 MG Oral Capsule (Lotrel)Indications: 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) Take 1 Capsule by mouth in the morning. 90 Capsule 1 06/11/2022 Active methylPREDNISolone 4 MG Oral Tablet Therapy Pack (Medrol Dosepack) follow package directions 21 Tablet 0 09/27/2022 Active Gabapentin 300 MG Oral Capsule (Neurontin) Take 1 Capsule by mouth 2 times a day as needed (lt arm nubmness weakness). 60 Capsule 3 09/27/2022 Active documented as of this encounter (statuses as of 10/10/2022) Active Problems Problem Noted Date Ruptured extensor tendon of hand or wris [...] as of this encounter (statuses as of 10/10/2022) Resolved Problems Problem Noted Date Resolved Date Secondary hyperparathyroidism 08/10/2019 History of rheumatoid arthritis 09/04/2017 08/20/2018 History of rheumatoid arthritis 01/06/2016 07/27/2016 Kidney disease, chronic, stage III (GFR 30-59 ml /min) 08/09/2014 07/30/2017 Overview: Per CKD protocol #1 HTN, goal below 140/90 8 Kidney disease, chronic, stage III (GFR 30-59 ml /min) 03/24/2012 documented as of this encounter (statuses as of 10/10/2022) Immunizations Name Administration Dates Next Due COVID-19 mRNA, LNP-s, No Pre serve, 2-Dose Series ([employer]) 03/01/2021,08/03/2020,07/13/2020 Pneumococcal Conjugate Vacc, 13 Valent (Prevnar) [...] got money to buy more. Never true 02/18/2020 Within the past 12 months, t he food you bought just didn't last and you didn't have money to get more. Never true 02/18/2020 Sex Assigned at Date Recorded Male 12/17/2018 2:08 PM E DT Job Start Date Occupation Industry Not on file Not on file Not on file documented as of this encounter Miscellaneous Notes * Telephone Encounter - Mabel Lagos LPN - 10/10/2022 10:00 AM EDT Care Gaps Comprehensive Care Outreach Last Office/Telemedicine Visit: 11/10/2021 (in office), Visit date not found (telemedicine) Next Office Visit: 11/07/2022 Hemoglobin AIC Results: No results found for: HEMOGLOBIN A1C Reviewed Health Maintenance below: Health Maintenance Topic Date Due Hepatitis C Screening Never done Hepatitis B (1 of 3 - Risk 3-dose series) Never done FOBT ANNUALLY,AGES 18-90 03/22/2017 Zoster Vaccines (2 of 2) 12/26/2020 Depression Screening, Annual for Pts 12 and Over 02/17/2021 COVID-19 Vaccine (4 - Booster for Pfizer series) 04/26/2021 Albumin/Creatinine Ratio 03/16/2022 CKD PHOS USE SMARTSET 11379 03/16/2022 GFR - Renal Function 03/30/2023 fobt already ordered Labs not due until fall Care Gap Outreach Action Taken: Outreach not indicated documented in this encounter Plan of Treatment Upcoming Encounters Date Type Specialty Care Team Description 11/07/2022 Office Visit Internal Medicine William Joseph MD 200 [facility] [place] [address] 12/06/2022 Office Visit Rheumatology Carlos Alberto [place] MD [address] [facility] [place] [address] Health Maintenance Due Date Last Done Comments Hepatitis C Screening 1963 Hepatitis B (1 of 3 - Risk 3-dose series) 2003 FOBT ANNUALLY,AGES 18-90 03/22/2017 03/22/2016, 09/26 Zoster Vaccines (2 of 2) 12/26/2020 10/31/2020, 12/25 Depression Screening, Annual for Pts 12 and Over 02/17/2021 02/18/2020 COVID-19 Vaccine (4 - Booster for Pfizer series) 04/26/2021 03/01/2021, 08/03/2020, 07/13/2020 Albumin/Creatinine Ratio 03/16/2022 021, 08/03/2016, 01/01/2014 CKD PHOS USE SMARTSET 90235 03/16/202202/25, 03/15/2020, 10/22/2018, Additional history exists GFR - Renal Function 03/30/2023 09/27/2022, 12/06/2021, 03/16/2021, Additional history exists CKD HGB USE SMARTSET 42629 09/28/202309/27, 09/27/2022, 01/09/2022, Additional history exists DTaP,Tdap,and Td Vaccines (2 - Td or Tdap) 01/10/2025 01/10/2015 Pneumococcal Vaccine: 65+ Years Completed 07/13/2015, 06/08/2013 Influenza Vaccine (FLU shot) Completed , 05/02/2021, 03/15/2020, Additional history exists GARDASIL-HPV IMMUNIZATION SERIES Aged Out No longer eligible based on patient's age to complete this topic MENINGOCOCCAL (MENACTRA/MENVEO) Aged Out No longer eligible based on patient's age to complete this topic documented as of this encounter Medical Devices Not on filedocumented as of this encounter Care Teams Still Worker Helper Relationship Specialty Start Date End Date William Joseph MD [address] [place] [address], [place] [address] PCP - General Internal Medicine 03/18/12 documented as of this encounter
--- OUTSIDE RECORDS SUMMARY | 2023-01-29 05:02 | External Medical Summary | Summary of Care ---
Author Name Unknown Organization [facility] Address [address] [place] [address] Phone [phone] Care Team Providers Care Director Script Name Role Phone William Joseph MD Primary Care Provider + Reason for Visit * Reason Onset Date Comments Test Results 09/28/2022 Encounter Details Date Type Department Care Team Description 09/28/2022 Telephone [facility] [address] [place] [address] Awais Nixon MD [address] [place] [address] Test Results (/) Allergies No known active allergiesdocumented as of this encounter (statuses as of 09/28/2022) Medications Medication Sig Dispensed Refills Start Date [...] as of this encounter (statuses as of 09/28/2022) Active Problems Problem Noted Date Ruptured extensor [...] as of this encounter (statuses as of 09/28/2022) Resolved Problems Problem Noted Date Resolved Date Secondary hyperparathyroidism 08/10/2019 History of rheumatoid arthritis 09/04/2017 08/20/2018 History of rheumatoid arthritis 01/06/2016 07/27/2016 Kidney disease, chronic, stage III (GFR 30-59 ml /min) 08/09/2014 07/30/2017 Overview: Per CKD protocol #1 HTN, goal below 140/90 8 Kidney disease, chronic, stage III (GFR 30-59 ml /min) 03/24/2012 documented as of this encounter (statuses as of 09/28/2022) Immunizations Name Administration Dates Next Due COVID-19 mRNA, LNP-s, No Pre serve, 2-Dose Series ([facility]) 03/01/2021,08/03/2020,07/13/2020 Pneumococcal Conjugate Vacc, 13 Valent (Prevnar) [...] encounter Miscellaneous Notes * Telephone Encounter - Carlos Alberto [place] MD - 09/28/2022 12:35 PM EDT I spoke with red. He started steroids today. Asked him to get the cervical neck x-rays today. Couldbe concerned about RA a to be given an elevated inflammatory markers as well as RA related cervicalneck disease. May need an MRI. Dr Tiffani WATTS * Telephone Encounter - Awais Nixon MD - 09/28/2022 8:18 AM EDT Blood tests showed very high inflammatory markers His current neck pain is most likely due to RA flare up Although pt is getting humira and also was on prednisone low dose on and off , it might not be enough for his RA maintenance Will forward this message to his rheumatology , Dr [place] For now ok to finish steroid package as discussed until Dr [place] gives instruction documented in this encounter Plan of Treatment Upcoming Encounters Date Type Specialty Care Team Description 11/07/2022 Office Visit Internal Medicine William Joseph MD 200 [facility] [place] [address] 12/06/2022 Office Visit Rheumatology Carlos Alberto [place] MD [address] [place], [place] [address] Health Maintenance Due Date Last Done Comments [...] 021, 08/03/2016, 01/01/2014 CKD PHOS USE SMARTSET 89046 03/16/202202/25, 03/15/2020, 10/22/2018, Additional history exists GFR - Renal Function 03/30/2023 09/27/2022, 12/06/2021, 03/16/2021, Additional history exists CKD HGB USE SMARTSET 90288 09/28/202309/27, 09/27/2022, 01/09/2022, Additional history exists DTaP,Tdap,and [...] filedocumented as of this encounter Care Teams Director Script Relationship Specialty Start Date End Date William Joseph MD [address] [place] [address], [place] [address] PCP - General Internal Medicine 03/18/12 documented as of this encounter
--- OUTSIDE RECORDS SUMMARY | 2023-01-29 05:02 | External Medical Summary ---
Author Name Unknown Address Unknown Organization K01:[facility] [address] [place] [address] Laboratory Report Ordering Provider Test Date Status KATHY RAE 11/12/2022 14:41:40 Final Observation Date Value Abnormality Reference (Units ) Status Phosphate 11/12/2022 14:41:40 3.9 2.5-4.8 (m g/dL) Final Performing Location [facility] - [address] [place] [address]
--- OUTSIDE RECORDS SUMMARY | 2023-01-29 05:02 | External Medical Summary | Summary of Care ---
Author Name Unknown Organization [facility] Address [address] [place] [address] Phone [phone] Care Team Providers Care Roof Tiler Name Role Phone William Joseph MD Primary Care Provider + Reason for Visit * Reason Onset Date Comments Appointment 11/09/2022 Encounter Details Date Type Department Care Team Description 11/09/2022 Telephone General Internal Medicine [facility] [place] 200 [facility] [place] [id number] William Joseph MD 200 [facility] [place] [address] Appointment Allergies No known active allergiesdocumented as [...] mRNA, LNP-s, No Pre serve, 2-Dose Series ([employer]) 03/01/2021,08/03/2020,07/13/2020 Pneumococcal Conjugate Vacc, 13 Valent (Prevnar) [...] EDT US HEAD AND NECK [USNECK] (Order [id number]) documented in this encounter Plan of Treatment Upcoming Encounters Date Type Specialty Care Team Description 12/06/2022 Office Visit Rheumatology Carlos Alberto [place] MD [address] [place] [address] 06/13/2023 Office Visit Internal Medicine William Joseph MD 200 [place] [address] Health Maintenance Due Date Last Done Comments Hepatitis B (1 of 3 - Risk 3-dose series) 2003 FOBT ANNUALLY,AGES 18-90 03/22/2017 03/22/2016, 09/26 Zoster Vaccines (2 of 2) 12/26/2020 10/31/2020, 12/25 COVID-19 Vaccine (4 - Booster for Pfizer series) 04/26/2021 03/01/2021, 08/03/2020, 07/13/2020 Albumin/Creatinine Ratio 03/16/2022 021, 08/03/2016, 01/01/2014 CKD PHOS USE SMARTSET 62190 03/16/2022 1005/2020, 03/15/2020, 10/22/2018, Additional history exists Depression, Most Recent Score >= 10 (will fire each visit until score < 10) 11/08/2022 11/07/2022 GFR 03/30/2023 09/27/2022, 11/24, 03/16/2021, Additional history exists CKD HGB USE SMARTSET 72600 09/28/202309/27, 09/27/2022, 01/09/2022, Additional history exists DTaP,Tdap,and [...] filedocumented as of this encounter Care Teams Roof Tiler Relationship Specialty Start Date End Date William Joseph MD [address] [place] [address], [place] [address] PCP - General Internal Medicine 03/18/12 documented as of this encounter
--- OUTSIDE RECORDS SUMMARY | 2023-01-29 05:02 | External Medical Summary | Summary of Care ---
Author Name Unknown Organization [facility] Address [address] [place] [address] Phone [phone] Care Team Providers Care Chemical Laboratory Chief Name Role Phone William Joseph MD Primary Care Provider + Encounter Details Date Type Department Care Team Description 11/09/2022 Telephone General Internal Medicine [facility] 200 [facility] [place] [id number] William Joseph MD 200 [place] [address] Allergies No known active allergiesdocumented as of [...] mRNA, LNP-s, No Pre serve, 2-Dose Series ([employer]) 03/01/2021,08/03/2020,07/13/2020 Pneumococcal Conjugate Vacc, 13 Valent (Prevnar) [...] Telephone Encounter - PAULA Weir - 11/09/2022 12:[address] CHEST WO CONTRAST [CTTHWO] (Order [id number] documented in this encounter Plan of Treatment Upcoming Encounters Date Type Specialty Care Team Description 12/06/2022 Office Visit Rheumatology Carlos Alberto [place] MD [address] [place] [address] 06/13/2023 Office Visit Internal Medicine William Joseph MD 200 [place] [address] Health Maintenance Due Date Last Done Comments Hepatitis B (1 of 3 - Risk 3-dose series) 2003 FOBT ANNUALLY,AGES 18-90 03/22/2017 03/22/2016, 09/26 Zoster Vaccines (2 of 2) 12/26/2020 10/31/2020, 12/25 COVID-19 Vaccine (4 - Booster for Pfizer series) 04/26/2021 03/01/2021, 08/03/2020, 07/13/2020 Albumin/Creatinine Ratio 03/16/2022 021, 08/03/2016, 01/01/2014 CKD PHOS USE SMARTSET 80003 03/16/202202/25, 03/15/2020, 10/22/2018, Additional history exists Depression, Most Recent Score >= 10 (will fire each visit until score < 10) 11/08/2022 11/07/2022 GFR 03/30/2023 09/27/2022, 0707/2021, 03/16/2021, Additional history exists CKD HGB USE SMARTSET 74666 09/28/202309/27, 09/27/2022, 01/09/2022, Additional history exists DTaP,Tdap,and [...] filedocumented as of this encounter Care Teams Chemical Laboratory Chief Relationship Specialty Start Date End Date William Joseph MD [address] [place] [address], [place] [address] PCP - General Internal Medicine 03/18/12 documented as of this encounter
--- OUTSIDE RECORDS SUMMARY | 2023-01-29 05:02 | External Medical Summary | Summary of Care ---
Author Name Unknown Organization [facility] Address [address] [place] [address] Phone [phone] Care Team Providers Care Candy Separator Hard Name Role Phone William Chavez MD Primary Care Provider + Reason for Visit * Reason Onset Date Comments Medication Refill 10/17/2022 Encounter Details Date Type Department Care Team Description 10/17/2022 Refill General Internal Medicine [facility] 200 [facility] [place] [address] William Chavez MD 200 [place] [address] Pernicious anemia Allergies No known active allergiesdocumented as of this encounter (statuses as of 10/18/2022) Medications Medication Sig Dispensed Refills Start Date [...] nubmness weakness). 60 Capsule 3 09/27/2022 Active Cyanocobalamin 1000 MCG/ML Injection Solution (Cyanocobalamin)In dications:Pernicio us anemia inject 1ml into a large muscle every month 1 mL 4 10/18/2022 Active Cyanocobalamin 1000 MCG/ML Injection Solution (Cyanocobalamin)In dications:Pernicio us anemia inject 1ml into a large muscle every month 1 mL 4 04/05/2022 3 Discontinue d(Refill) documented as of this encounter (statuses as of 10/18/2022) Active Problems Problem Noted Date Ruptured extensor [...] as of this encounter (statuses as of 10/18/2022) Resolved Problems Problem Noted Date Resolved Date Secondary hyperparathyroidism 08/10/2019 History of rheumatoid arthritis 09/04/2017 08/20/2018 History of rheumatoid arthritis 01/06/2016 07/27/2016 Kidney disease, chronic, stage III (GFR 30-59 ml /min) 08/09/2014 07/30/2017 Overview: Per CKD protocol #1 HTN, goal below 140/90 8 Kidney disease, chronic, stage III (GFR 30-59 ml /min) 03/24/2012 documented as of this encounter (statuses as of 10/18/2022) Immunizations Name Administration Dates Next Due COVID-19 mRNA, LNP-s, No Pre serve, 2-Dose Series ([employer]) 03/01/2021,08/03/2020,07/13/2020 Pneumococcal Conjugate Vacc, 13 Valent (Prevnar) [...] Miscellaneous Notes * Telephone Encounter - William Chavez MD - 10/18/2022 12:19 PM EDTSigned Prescriptions: Disp Refills Cyanocobalamin 1000 MCG/ML Injection Solut*1 mL 4 Sig: inject 1ml into a large muscle every month Authorizing Provider: WILLIAM CHAVEZ * Telephone Encounter - Keisha Payne LPN - 10/18/2022 10:55 AM EDTPending Prescriptions: Disp Refills Cyanocobalamin 1000 MCG/ML Injection Solut*1 mL 4 Sig: inject 1ml into a large muscle every month * Telephone Encounter - Keisha Payne LPN - 10/18/2022 10:29 AM EDT Pending Prescriptions: Disp Refills Cyanocobalamin 1000 MCG/ML Injection Solu*1 mL 4 Sig: inject 1ml into a large muscle every month Last Visit: 11/10/2021 (in office), Visit date not found (telemedicine) Next Visit: 11/07/2022 Last date the medication was ordered: 04/05/22 Patient Active Problem List Diagnosis Code Encounter for therapeutic drug monitoring Z51.81 Pernicious anemia D51.0 Bronchiectasis (HCC) J47.9 Thoracic aortic aneurysm ([facility]) I71.20 Benign hypertension with CKD (chronic kidney disease) stage III ([facility]) I12.9, N18.30 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 Bunion, left foot M21.612 Primary osteoarthritis of right hip M16.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 ([facility]) M05.79 Mixed hyperlipidemia E78.2 Thyroid nodule 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 Ruptured extensor tendon of hand or wrist, left, initial encounter S66.812A Labs: Lab Results Component Value Date/Time CREATININE - [facility] 1.3 (H) 09/27/2022 02:37 PM CREATININE - [facility] 1.3 (H) 05/04/2016 12:09 PM CREATININE, RANDOM URINE - [facility] 94 08/03/2016 01:51 PM CREATININE-[facility] 1.19 12/06/2021 12:00 AM Lab Results Component Value Date/Time POTASSIUM - [facility] 5.5 (H) 09/27/2022 02:37 PM POTASSIUM - [facility] 4.6 05/04/2016 12:09 PM POTASSIUM-[facility] 4.8 12/06/2021 12:00 AM Lab Results Component Value Date/Time TSH - [facility] 0.82 06/24/2013 12:14 PM TSH - [facility] 1.34 10/14/2020 12:00 AM Lab Results Component Value Date/Time LDL (CALCULATED)-[facility] 106 (A) 12/06/2021 12:00 AM LDL (CALCULATED)-[facility] 110 (A) 10/14/2020 12:00 AM LDL CHOLESTEROL (CALCULATED) - [facility] 119 05/04/2016 12:09 PM LDL CHOLESTEROL (CALCULATED) - [facility] 143 (H) 01/01/2014 11:28 AM LDL CHOLESTEROL (DIRECT MEASURE) - [facility] NOT APPLICABLE 05/04/2016 12:09 PM LDL CHOLESTEROL (DIRECT MEASURE) - [facility] 107 06/11/2014 02:22 PM LDL CHOLESTEROL (DIRECT MEASURE) - [facility] NOT APPLICABLE 01/01/2014 11:28 AM Lab Results Component Value Date/Time ALT - [facility] 11 09/27/2022 02:37 PM ALT - [facility] 10 05/04/2016 12:09 PM ALT-[facility] 21 12/06/2021 12:00 AM Hemoglobin AIC Results: No results found for: HEMOGLOBIN A1C documented in this encounter Plan of Treatment Upcoming Encounters Date Type Specialty Care Team Description 11/07/2022 Office Visit Internal Medicine William Chavez MD 200 [facility] [place] [address] 12/06/2022 Office Visit Rheumatology Carlos Alberto [place] MD [address] [place] [address] Health Maintenance Due Date Last Done Comments [...] 021, 08/03/2016, 01/01/2014 CKD PHOS USE SMARTSET 81989 03/16/2022 1005/2020, 03/15/2020, 10/22/2018, Additional history exists GFR 03/30/2023 09/27/2022, 11/24, 03/16/2021, Additional history exists CKD HGB USE SMARTSET 22478 09/28/202309/27, 09/27/2022, 01/09/2022, Additional history exists DTaP,Tdap,and [...] as of this encounter Visit Diagnoses Diagnosis Pernicious anemia documented in this encounter Care Teams Candy Separator Hard Relationship Specialty Start Date End Date William Chavez MD [address] [place] [address] PCP - General Internal Medicine 03/18/12 documented as of this encounter
--- OUTSIDE RECORDS SUMMARY | 2023-01-29 05:02 | External Medical Summary | Summary of Care ---
Author Name Unknown Organization [facility] Address [address] [place] [address] Phone [phone] Care Team Providers Care Tire Changer Name Role Phone William Joseph MD Primary Care Provider + Reason for Visit * Reason Onset Date Comments Appointment 11/09/2022 Encounter Details Date Type Department Care Team Description 11/09/2022 Telephone General Internal Medicine [facility] [place] 200 [facility] [place] [phone] William Joseph MD 200 [place] [address] Appointment Allergies No known active allergiesdocumented as [...] mRNA, LNP-s, No Pre serve, 2-Dose Series ([employer]) 03/01/2021,08/03/2020,07/13/2020 Pneumococcal Conjugate Vacc, 13 Valent [...] encounter Miscellaneous Notes * Telephone Encounter - Nathan Iglesias, PAULA - 11/12/2022 10:11 AM EDT LMOM 11/12 * Telephone Encounter - Felicia Benjamin, PAULA - 11/09/2022 12:[address] CHEST WO CONTRAST [CTTHWO] (Order [id number] documented in this encounter Plan of Treatment Upcoming Encounters Date Type Specialty Care Team Description 12/06/2022 Office Visit Rheumatology Carlos Alberto [place] MD [address] [facility] [place] [address] 06/13/2023 Office Visit Internal Medicine William Joseph MD [address] [place] [address] Health Maintenance Due Date Last Done Comments Hepatitis B (1 of 3 - Risk 3-dose series) 2003 FOBT ANNUALLY,AGES 18-90 03/22/2017 03/22/2016, 09/26 Zoster Vaccines (2 of 2) 12/26/2020 10/31/2020, 12/25 COVID-19 Vaccine (4 - Booster for Pfizer series) 04/26/2021 03/01/2021, 08/03/2020, 07/13/2020 Albumin/Creatinine Ratio 03/16/2022 021, 08/03/2016, 01/01/2014 CKD PHOS USE SMARTSET 43393 03/16/2022 1005/2020, 03/15/2020, 10/22/2018, Additional history exists Depression, Most Recent Score >= 10 (will fire each visit until score < 10) 11/08/2022 11/07/2022 GFR 03/30/2023 09/27/2022, 11/24, 03/16/2021, Additional history exists CKD HGB USE SMARTSET 51006 09/28/202309/27, 09/27/2022, 01/09/2022, Additional history exists DTaP,Tdap,and [...] filedocumented as of this encounter Care Teams Tire Changer Relationship Specialty Start Date End Date William Joseph MD [address] [place] [address], [place] [address] PCP - General Internal Medicine 03/18/12 documented as of this encounter
--- OUTSIDE RECORDS SUMMARY | 2023-01-29 05:02 | External Medical Summary ---
Author Name Unknown Address Unknown Organization K01:[facility] - [address] [place] [address] Laboratory Report Ordering Provider Test Date Status KATHY RAE 11/12/2022 14:41:40 Final Observation Date Value Abnormality Reference (Units ) Status CRP, low-sensitivity 11/12/2022 14:41:40 138 Above high normal <=5 (mg/L) Final Performing Location [facility] - [address] [place] [address]
--- OUTSIDE RECORDS SUMMARY | 2023-01-29 05:02 | External Medical Summary | Summary of Care ---
Author Name Unknown Organization [facility] Address [address] [place] [address] Phone [phone] Care Team Providers Care Cushion Cover Inspector Name Role Phone William Joseph MD Primary Care Provider + Reason for Referral * (Within 10 days (routine)) - Pending Review Specialty Diagnoses / Procedures Referred By Suha mitchell Referred To Contact Radiology Diagnoses Thyroid nodule Procedures US HEAD AND NECK William Joseph MD [address] [place] [address] Referral ID Status Reason Start Date Expiration Date V isits Requested Visits Authorized [id number] Pending Review 11/07/2022 999 999 * Precert (Within 10 days (routine)) - Pending Review Specialty Diagnoses / Procedures Referred By Suha mitchell Referred To Contact Radiology Diagnoses Bronchiectasis without complication (HCC) Chronic cough Procedures CT CHEST WO CONTRAST William Joseph MD [address] [place] [address] Referral ID Status Reason Start Date Expiration Date V isits Requested Visits Authorized [id number] Pending Review 11/07/2022 999 999 Reason for Visit * Reason [...] Office Visit General Internal Medicine [facility] [place] [address] [place] [address] William Joseph MD [address] [place] [address] Benign hypertension with CKD (chronic kidney disease) [...] as of this encounter (statuses as of 11/07/2022) Medications Medication Sig Dispensed Refills Start Date [...] after that 30 Tablet 5 11/07/2022 Active methylPREDNISolone 4 MG Oral Tablet Therapy Pack (Medrol Dosepack) follow package directions 21 Tablet 0 09/27/2022 3 Discontinue d(Patient preference/ discontinua tion) Gabapentin 300 MG Oral Capsule (Neurontin) Take 1 Capsule by mouth 2 times a day as needed (lt arm nubmness weakness). 60 Capsule 3 09/27/2022 3 Discontinue d(Patient preference/ discontinua tion) documented as of this encounter (statuses as of 11/07/2022) Active Problems Problem Noted Date Thoracic aortic [...] as of this encounter (statuses as of 11/07/2022) Resolved Problems Problem Noted Date Resolved Date Secondary hyperparathyroidism 08/10/2019 History of rheumatoid arthritis 09/04/2017 08/20/2018 History of rheumatoid arthritis 01/06/2016 07/27/2016 Kidney disease, chronic, stage III (GFR 30-59 ml /min) 08/09/2014 07/30/2017 Overview: Per CKD protocol #1 HTN, goal below 140/90 8 Kidney disease, chronic, stage III (GFR 30-59 ml /min) 03/24/2012 documented as of this encounter (statuses as of 11/07/2022) Immunizations Name Administration Dates Next Due COVID-19 mRNA, LNP-s, No Pre serve, 2-Dose Series ([employer]) 03/01/2021,08/03/2020,07/13/2020 Pneumococcal Conjugate Vacc, 13 Valent (Prevnar) [...] with CKD (chronic kidney disease) stage III ([facility]) I12.9, N18.30 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 Bunion, left foot M21.612 Primary osteoarthritis of right hip M16.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 (HCC) M05.79 Mixed hyperlipidemia E78.2 Thyroid nodule 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 Ruptured extensor tendon of hand or wrist, left, initial encounter S66.812A Thoracic aortic aneurysm without rupture ([facility]) I71.20 Current Outpatient Medications Medication Sig Dispense [...] Albumin/Creatinine Ratio 03/16/2022 CKD PHOS USE SMARTSET 22132 03/16/2022 ROS: CONSTITUTIONAL: as per hpi EYE: [...] level: Not on file Occupational History 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 Employer: [employer] Tobacco Use Smoking status: Former Packs/day: 2.00 [...] of right hip J47.9 Bronchiectasis without complication ([facility]) M05.79 Rheumatoid arthritis involving multiple sites with positive rheumatoid factor ([facility]) M25.561 Acute pain of right knee E78.2 Mixed hyperlipidemia D51.0 Pernicious anemia D47.2 MGUS (monoclonal gammopathy of unknown significance) M54.2,G89.29 Chronic neck pain Z01.84 Immunity status testing R05.3 Chronic cough R50.9 Fever, unspecified fever cause 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 documented in this encounter Plan of Treatment Upcoming Encounters Date Type Specialty Care Team Description 12/06/2022 Office Visit Rheumatology Carlos Alberto [place] MD [address] [place] [address] 06/13/2023 Office Visit Internal Medicine William Joseph MD [address] [place] [address] Scheduled Orders Name Type Priority Associated Diagnoses Orde r Schedule XR HIP UNILAT 2-3 VIEWS INCLUDING AP PELVIS Medical Imaging Routine Primary osteoarthritis of right hip Expected: 11/07/2022, Expires: 12/08/2023 XR KNEE 4 OR MORE VIEWS Medical Imaging Routine Acute pain of right knee Expected: 11/07/2022, Expires: 12/08/2023 COMPREHENSIVE METABOLIC PANEL Lab Routine 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) Mixed hyperlipidemia Expected: 11/07/2022 (Approximate), Expires: 11/07/2023 LIPID PANEL WITH DIRECT LDL IF TG IS HIGH Lab Routine 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) Mixed hyperlipidemia Expected: 11/07/2022, Expires: 11/08/2023 PHOSPHORUS Lab Routine 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) Expected: 11/07/2022 (Approximate), Expires: 11/07/2023 ALBUMIN / CREATININE RATIO, URINE Lab Routine 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) Expected: 11/07/2022 (Approximate), Expires: 11/07/2023 CBC WITH WBC DIFFERENTIAL Lab Routine 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) Expected: 11/07/2022 (Approximate), Expires: 11/08/2023 ERYTHROCYTE SEDIMENTATION RATE (ESR) Lab Routine Rheumatoid arthritis involving multiple sites with positive rheumatoid factor (HCC) Expected: 11/07/2022 (Approximate), Expires: 11/07/2023 CRP (INFLAMMATORY MARKER) Lab Routine Rheumatoid arthritis involving multiple sites with positive rheumatoid factor (HCC) Expected: 11/07/2022 (Approximate), Expires: 11/07/2023 VITAMIN B12 Lab Routine Pernicious anemia Expected: 11/07/2022 (Approximate), Expires: 11/07/2023 SERUM PROTEIN ELECTROPHORESIS REFLEX PROFILE Lab Routine MGUS (monoclonal gammopathy of unknown significance) Expected: 11/07/2022 (Approximate), Expires: 11/07/2023 URINE IMMUNOFIXATION, BENCE PEREZ PROTEIN, RANDOM URINE Lab Routine MGUS (monoclonal gammopathy of unknown significance) Expected: 11/07/2022 (Approximate), Expires: 11/07/2023 HEPATITIS B SURFACE ANTIBODY Lab Routine Immunity status testing Expected: 11/07/2022 (Approximate), Expires: 11/07/2023 CT CHEST WO CONTRAST Medical Imaging Routine Bronchiectasis without complication (HCC) Chronic cough Ordered: 11/07/2022 LYME DISEASE ANTIBODY SCREEN WITH REFLEX TO CONFIRMATION Lab Routine Acute pain of right knee Expected: 11/07/2022 (Approximate), Expires: 11/07/2023 XR CHEST 2 VIEWS Medical Imaging Routine Chronic cough Fever, unspecified fever cause Ordered: 11/07/2022 US HEAD AND NECK Medical Imaging Routine Thyroid nodule Expected: 11/07/2022, Expires: 12/08/2023 Health Maintenance Due Date Last Done Comments Hepatitis B (1 of 3 - Risk 3-dose series) 2003 FOBT ANNUALLY,AGES 18-90 03/22/2017 03/22/2016, 09/26 Zoster Vaccines (2 of 2) 12/26/2020 10/31/2020, 12/25 Depression Screening, Annual for Pts 12 and Over 02/17/2021 02/18/2020 COVID-19 Vaccine (4 - Booster for Pfizer series) 04/26/2021 03/01/2021, 08/03/2020, 07/13/2020 Albumin/Creatinine Ratio 03/16/2022 021, 08/03/2016, 01/01/2014 CKD PHOS USE SMARTSET 63400 03/16/202202/25, 03/15/2020, 10/22/2018, Additional history exists GFR 03/30/2023 09/27/2022, 11/24, 03/16/2021, Additional history exists CKD HGB USE SMARTSET 92912 09/28/202309/27, 09/27/2022, 01/09/2022, Additional history exists DTaP,Tdap,and [...] as of this encounter Visit Diagnoses Diagnosis Benign hypertension [...] episode, moderate Thyroid nodule Nontoxic uninodular goiter documented in this encounter Care Teams Cushion Cover Inspector Relationship Specialty Start Date End Date William Joseph MD [address] [place] [address], [place] [address] PCP - General Internal Medicine 03/18/12 documented as of this encounter
--- OUTSIDE RECORDS SUMMARY | 2023-01-29 05:02 | External Medical Summary | Summary of Care ---
Author Name Unknown Organization [facility] Address [address] [place] [address] Phone [phone] Care Team Providers Care Storage Administrator Name Role Phone William Joseph MD Primary Care Provider + Reason for Visit * Reason Onset Date Comments Test Results 09/28/2022 Encounter Details Date Type Department Care Team Description 09/28/2022 Telephone [facility] [address] [place] [address] Awais Nixon MD [address] [place] [address] Test Results (/) Allergies No known active allergiesdocumented as of this encounter (statuses as of 10/01/2022) Medications Medication Sig Dispensed Refills Start Date [...] as of this encounter (statuses as of 10/01/2022) Active Problems Problem Noted Date Ruptured extensor [...] as of this encounter (statuses as of 10/01/2022) Resolved Problems Problem Noted Date Resolved Date Secondary hyperparathyroidism 08/10/2019 History of rheumatoid arthritis 09/04/2017 08/20/2018 History of rheumatoid arthritis 01/06/2016 07/27/2016 Kidney disease, chronic, stage III (GFR 30-59 ml /min) 08/09/2014 07/30/2017 Overview: Per CKD protocol #1 HTN, goal below 140/90 8 Kidney disease, chronic, stage III (GFR 30-59 ml /min) 03/24/2012 documented as of this encounter (statuses as of 10/01/2022) Immunizations Name Administration Dates Next Due COVID-19 mRNA, LNP-s, No Pre serve, 2-Dose Series (Room 77) 03/01/2021,08/03/2020,07/13/2020 Pneumococcal Conjugate Vacc, 13 Valent (Prevnar) [...] 09/28/2022 12:35 PM EDT I spoke with Ignacio. He started steroids today. Asked him to get the cervical neck x-rays today. Could be concerned about RA a to be given an elevated inflammatory markers as well as RA related cervical neck disease. May need an MRI. Dr Tiffani [...] Visit Internal Medicine William Joseph MD [address] [place] [facility] [place] [address] 12/06/2022 Office Visit Rheumatology Carlos Alberto [place] MD [address] [place] [address] Health Maintenance Due Date Last Done Comments [...] 021, 08/03/2016, 01/01/2014 CKD PHOS USE SMARTSET 95162 03/16/202202/25, 03/15/2020, 10/22/2018, Additional history exists GFR - Renal Function 03/30/2023 09/27/2022, 12/06/2021, 03/16/2021, Additional history exists CKD HGB USE SMARTSET 12302 09/28/202309/27, 09/27/2022, 01/09/2022, Additional history exists DTaP,Tdap,and [...] filedocumented as of this encounter Care Teams Storage Administrator Relationship Specialty Start Date End Date William Joseph MD [address] [place] [address], [place] [address] PCP - General Internal Medicine 03/18/12 documented as of this encounter
--- OUTSIDE RECORDS SUMMARY | 2023-01-29 05:02 | External Medical Summary | Summary of Care ---
Author Name Unknown Organization [facility] Address [address] [place] [address] Phone [phone] Care Team Providers Care Detail Sergeant Name Role Phone William Joseph MD Primary Care Provider + Reason for Visit * Reason Onset Date Comments Test Results 09/28/2022 Encounter Details Date Type Department Care Team Description 09/28/2022 Telephone [facility] [address] [place] [address] Awais Nixon MD [address] [place] [address] Test Results (/) Allergies No [...] mRNA, LNP-s, No Pre serve, 2-Dose Series ([employer]) 03/01/2021,08/03/2020,07/13/2020 Pneumococcal Conjugate Vacc, 13 Valent (Prevnar) [...] Visit Internal Medicine William Joseph MD [address] [facility] [place] [address] 12/06/2022 Office Visit Rheumatology Carlos Alberto [place] MD [address] [place], [place] [address] Health Maintenance Due Date Last Done Comments [...] 021, 08/03/2016, 01/01/2014 CKD PHOS USE SMARTSET 01975 03/16/202202/25, 03/15/2020, 10/22/2018, Additional history exists GFR - Renal Function 03/30/2023 09/27/2022, 12/06/2021, 03/16/2021, Additional history exists CKD HGB USE SMARTSET 14158 09/28/202309/27, 09/27/2022, 01/09/2022, Additional history exists DTaP,Tdap,and [...] filedocumented as of this encounter Care Teams Detail Sergeant Relationship Specialty Start Date End Date William Joseph MD [address] [place] [address], [place] [address] PCP - General Internal Medicine 03/18/12 documented as of this encounter
--- OUTSIDE RECORDS SUMMARY | 2023-01-29 05:02 | External Medical Summary ---
Author Name Unknown Address Unknown Organization K01:[facility] - [address] [place] [id number] Laboratory Report Ordering Provider Test Date Status KATHY RAE 11/12/2022 14:41:40 Final Observation Date Value Abnormality Reference (Units ) Status Triglyceride 11/12/2022 14:41:40 115 <=174 ( mg/dL) Final Performing Location [facility] - [address] [place] [address]
--- OUTSIDE RECORDS SUMMARY | 2023-01-29 05:02 | External Medical Summary | Summary of Care ---
Author Name Unknown Organization [facility] Address [address] [place] [address] Phone [phone] Care Team Providers Care Ground Crew Chief Name Role Phone William Joseph MD Primary Care Provider + Encounter Details Date Type Department Care Team Description 09/28/2022 Telephone [facility] [address] [place] [address] Awais Nixon MD [address] [place] [address] Allergies No known active allergiesdocumented as of this encounter (statuses as of 09/28/2022) Medications Medication Sig Dispensed Refills Start Date End Date Status Cholecalciferol (VITAMIN D3) 50 MCG (1999) Tablet Take 0.5 Tablets by mouth. Every 2 - 3 days 0 Active Benzonatate 100 MG Oral Capsule (Tessalon Perlkarlos)Indications:C ough Take by mouth 1 Capsule 2 [...] mRNA, LNP-s, No Pre serve, 2-Dose Series ([employer]) 03/01/2021,08/03/2020,07/13/2020 Pneumococcal Conjugate Vacc, 13 Valent (Prevnar) [...] encounter Miscellaneous Notes * Telephone Encounter - Awais Nixon MD [...] Visit Internal Medicine William Joseph MD [address] [place] [address] 12/06/2022 Office Visit Rheumatology Carlos Alberto [place] MD [address] [place] [address] Health Maintenance Due Date Last Done Comments [...] 021, 08/03/2016, 01/01/2014 CKD PHOS USE SMARTSET 84117 03/16/202202/25, 03/15/2020, 10/22/2018, Additional history exists GFR - Renal Function 03/30/2023 09/27/2022, 12/06/2021, 03/16/2021, Additional history exists CKD HGB USE SMARTSET 37042 09/28/202309/27, 09/27/2022, 01/09/2022, Additional history exists DTaP,Tdap,and [...] filedocumented as of this encounter Care Teams Ground Crew Chief Relationship Specialty Start Date End Date William Joseph MD [address] [place] [address], [place] [address] PCP - General Internal Medicine 03/18/12 documented as of this encounter
--- OUTSIDE RECORDS SUMMARY | 2023-01-29 05:03 | External Medical Summary ---
Author Name Unknown Address Unknown Organization K01:[facility] - [address] [place] [address] Laboratory Report Ordering Provider Test Date Status ARLENECRISSY GREEN 09/27/2022 14:37:41 Final Observation Date Value Abnormality Reference (Units ) Status Erythrocyte sedimentation rate by Photometric method 09/27/2022 14:37:41 116 Above high normal <20 (mm/hour) Final Performing Location [facility] - [address] [place] [address]
--- OUTSIDE RECORDS SUMMARY | 2023-01-29 05:03 | External Medical Summary | Summary of Care ---
Author Name Unknown Organization [facility] Address [address] [place] [address] Phone [phone] Care Team Providers Care Wire Straightening Machine Operator Name Role Phone William Joseph MD Primary Care Provider + Reason for Visit * Reason Onset Date Comments Advice 09/26/2022 Encounter Details Date Type Department Care Team Description 09/26/2022 Telephone General Internal Medicine [facility] [place] [address] [facility] [place] [id number] William Joseph MD [address] [place] [address] Advice Allergies No known active allergiesdocumented as of this encounter (statuses as of 09/26/2022) Medications Medication Sig Dispensed Refills Start Date [...] 02/13/2022 Active Cyanocobalamin 1000 MCG/ML Injection Solution (Cyanocobalamin)Indic ations:Pernicious anemia inject 1ml into a large muscle every month 1 mL 4 04/05/2022 Active predniSONE 5 MG Oral Tablet (Deltasone)Indication [...] the morning. 90 Capsule 1 06/11/2022 Active documented as of this encounter (statuses as of 09/26/2022) Active Problems Problem Noted Date Ruptured extensor [...] as of this encounter (statuses as of 09/26/2022) Resolved Problems Problem Noted Date Resolved Date Secondary hyperparathyroidism 08/10/2019 History of rheumatoid arthritis 09/04/2017 08/20/2018 History of rheumatoid arthritis 01/06/2016 07/27/2016 Kidney disease, chronic, stage III (GFR 30-59 ml /min) 08/09/2014 07/30/2017 Overview: Per CKD protocol #1 HTN, goal below 140/90 8 Kidney disease, chronic, stage III (GFR 30-59 ml /min) 03/24/2012 documented as of this encounter (statuses as of 09/26/2022) Immunizations Name Administration Dates Next Due COVID-19 [...] encounter Miscellaneous Notes * Telephone Encounter - Sandip Khoury CMA - 09/26/2022 11:49 AM EDT Spoke to patient and he states concerns for on September 08 his left shoulder went numb and every daysince then he has had numbness through his left arm that comes and goes, left arm weaker than his right arm but states he can still use it and move it. He states that he has had this pain at the baseof his neck that causes headaches which he has been managing with aspirin and tylenol. * Telephone Encounter - William Joseph MD - 09/26/2022 11:10 AM EDT Please call Ignacio to assess issues/concerns * Telephone Encounter - PAULA Domínguez - 09/26/2022 11:08 AM EDT Pt's is calling and asking Dr. Joseph to call pt back as pt would like to explain what is going on with him. Please call Ignacio at [phone] documented in this encounter Plan of Treatment Upcoming Encounters Date Type Specialty Care Team Description 11/07/2022 Office Visit Internal Medicine William Joseph MD [address] [facility] [address] [place] [address] 12/06/2022 Office Visit Rheumatology Carlos Alberto [place] MD [address] [place] [address] Health Maintenance Due Date Last Done Comments [...] 021, 08/03/2016, 01/01/2014 CKD PHOS USE SMARTSET 47334 03/16/202202/25, 03/15/2020, 10/22/2018, Additional history exists GFR - Renal Function 06/08/2022 12/06/2021, 03/16/2021, 03/16/2021, Additional history exists CKD HGB USE SMARTSET 09167 01/09/202301/09, 12/06/2021, 05/02/2021, Additional history exists DTaP,Tdap,and Td Vaccines (2 [...] filedocumented as of this encounter Care Teams Wire Straightening Machine Operator Relationship Specialty Start Date End Date William Joseph MD [address] [place] [address], [place] [address] PCP - General Internal Medicine 03/18/12 documented as of this encounter
--- OUTSIDE RECORDS SUMMARY | 2023-01-29 05:03 | External Medical Summary | Summary of Care ---
Author Name Unknown Organization [place] [address] Care Team Providers Care Pay Station Collector Name Role Phone William Joseph MD Primary Care Provider + Reason for Visit * Reason Comments NEW PATIENT Left 4th finger * Evaluate & Treat - Unlimited Visits (Within 10 days (routine)) - Pending Review Specialty Diagnoses / Procedures Referred By Suha mitchell Referred To Contact Orthopaedic Surgery / Orthopedics Diagnoses Rheumatoid arthritis involving multiple sites with positive rheumatoid factor (HCC) Carlos Alberto Matthews MD [address] [place] [address] MD [address] [place] [address] Referral ID Status Reason Start Date Expiration Date Visits Requested Visits Authorized [id number] Pending Review Specialty Services Required [phone] Encounter Details Date Type Department Care Team Description 07/13/2022 Office Visit Orthopaedics [facility] [address] [facility] [place] [address] MD [address] [facility] [place] [address] Ruptured extensor tendon of hand or wrist, left, initial encounter* Allergies No known active allergiesdocumented as of this encounter (statuses as of 07/13/2022) Medications Medication Sig Dispensed Refills Start Date End Date Status Cholecalciferol (VITAMIN D3) 50 MCG (2000 UT) Tablet Take 1,000 Units by mouth. Every 2 - 3 days [...] as of this encounter (statuses as of 07/13/2022) Active Problems Problem Noted Date Ruptured extensor [...] as of this encounter (statuses as of 07/13/2022) Resolved Problems Problem Noted Date Resolved Date Secondary hyperparathyroidism 08/10/2019 History of rheumatoid arthritis 09/04/2017 08/20/2018 History of rheumatoid arthritis 01/06/2016 07/27/2016 Kidney disease, chronic, stage III (GFR 30-59 ml /min) 08/09/2014 07/30/2017 Overview: Per CKD protocol #1 HTN, goal below 140/90 8 Kidney disease, chronic, stage III (GFR 30-59 ml /min) 03/24/2012 documented as of this encounter (statuses as of 07/13/2022) Immunizations Name Administration Dates Next Due COVID-19 [...] as of this encounter Progress Notes * Anthony Way MD - 07/13/2022 3:27 PM EST HISTORY & PHYSICAL EXAMINATION - Hand Surgery Name: Ignacio Garcia Date: 07/13/2022 Time: 3:27 PM Date and Time Patient was Seen: 07/13/2022 at 3:27 PM PRESENTING PROBLEM: Difficulty extending the left ring and small fingers. 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 He is seen today at the recommendation of Dr. Matthews for hand surgery consultation regarding problems that he is having with his left hand. This started several months ago when he had a rheumatoid flare. His left upper extremity swelled up. He took some prednisone, and when the swelling was down, he washaving difficulty extending his left ring finger. His left small finger has been snapping for longer amount of time. His major impairment is in playing the piano and typing. His right small finger snaps a little bit as well. PAST MEDICAL HISTORY: Past Medical History: Diagnosis Date Bronchiectasis (HCC) 12/08/2013 Encounter for long-term (current) use of other medications 07/27/2010 History of rheumatoid arthritis 01/06/2016 HTN, goal below 140/90 Pernicious anemia 08/24/2010 Thyroid nodule 08/10/2019 Patient Active Problem List Diagnosis Code Encounter for therapeutic drug monitoring Z51.81 Pernicious anemia D51.0 Bronchiectasis ([facility]) J47.9 Thoracic aortic aneurysm I71.20 Benign hypertension with CKD (chronic kidney disease) stage III ([facility]) I12.9, N18.30 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 Bunion, left foot M21.612 Primary osteoarthritis of right hip M16.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 ([facility]) M05.79 Mixed hyperlipidemia E78.2 Thyroid nodule 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 Ruptured extensor tendon of hand or wrist, left, initial encounter S66.417W PAST SURGICAL HISTORY: Past Surgical History: Procedure Laterality Date DENTAL SURGERY PROCEDURE NEC 1979 REMOVE TONSILS & ADENOIDS, UNDER 12 1954 FAMILY HISTORY: Family History Problem Relation Age of Onset Other (osteoarthritis [Other]) Mother Hypertension Mother SOCIAL HISTORY: Social History Tobacco Use Smoking status: Former Packs/day: 2.00 Years: 35.00 Pack years: 70.00 Types: Cigarettes Quit date: 06/25/1990 Years since quittin.0 Smokeless tobacco: Never Substance Use Topics Alcohol use: Yes Alcohol/week: 5.8 standard drinks Types: 7 Mixed drink(s) containing 1.5 shots of alcohol per week Comment: occassional Drug use: No MARITAL STATUS: CURRENT MEDICATIONS: Current Outpatient Medications Medication Sig Dispense Refill Cholecalciferol (VITAMIN D3) 50 MCG (2000 UT) Tablet Take 1,000 Units by mouth. Every 2 - 3 days Benzonatate 100 MG Oral Capsule (Tessalon Perles) Take by mouth 1 Capsule 2 times a day as needed for Cough. Do not cut, crush, or chew. 50 Capsule 2 Fluticasone Propionate HFA 44 MCG/ACT Inhalation Aerosol (Flovent HFA) Inhale by mouth 1 Puff in the morning AND 1 Puff before bedtime. 10.6 g 5 Cyanocobalamin 1000 MCG/ML Injection Solution (Cyanocobalamin) inject 1ml into a large muscle every month 1 mL 4 predniSONE 5 MG Oral Tablet (Deltasone) Take [...] mouth in the morning. 90 Capsule 1 No current facility-administered medications for this visit. ALLERGIES: Patient has no known allergies. ROS: Negative for GI, , Cardiac, Respioratory and Neurologic complains. Remainder of systems negative. PHYSICAL EXAMINATION: General: Well developed, well nourished. Neuro: Awake, alert, and oriented. Heart & Lungs OK Extremities: There is an obvious arthritic deformity of the base of the left thumb. He does not have any pain with manipulation of the left trapeziometacarpal joint. wrist motion is a bit limited butpainless. The extensor tendon to the left small finger subluxes ulnarly as he bends the finger at the MP joint. the tendons snaps back as he extends his small finger. The ring finger has a bit of an extensor lag which is less of a problem when his wrist is flexed. flexion is full. Skin is intact. Sensation is intact. There is good capillary refill. X-rays of the left hand dated December 04, 2021 are available and I reviewed them. they show fair amount of osteoarthritis, particularly at the base of the thumb. IMPRESSION: I think he ruptured the extensor tendon to the ring finger distal to the extensor retinaculum at the wrist. whether this is attritional or due to the rheumatoid flare is difficult in retrospect to determine but I think that any extension that he has of the ring finger is coming from the juncturae tendonae rather than direct pull of the extensor tendon by the muscle belly. The small finger is a separate issue. There, he has attrition of the radial sagittal bands of the extensor osborn. PLAN: We had a long talk regarding the pathology of what's going on as well as what his options are for reconstruction. If he is to have surgery, then I would reef the radial aspect of extensor osborn to we centralized the small finger extensor tendon. I would also do a nyjx-sv-yano anastomosis of the extensor tendon to the middle and ring fingers. We talked about potential stiffness in the small finger after this procedure. We also talked about the loss of independent extension of the ring finger but I think he has that anyway. I suggested that he think about this for a bit. 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 I am going to see him again in a month for further discussion. Thank you for the kindness of this referral. Mr. Garcia is a delightful fellow and I enjoyed my interaction with him. Patient Active Problem List Diagnosis Code Encounter for therapeutic drug monitoring Z51.81 Pernicious anemia D51.0 Bronchiectasis (HCC) J47.9 Thoracic aortic aneurysm I71.20 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) I12.9, N18.30 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 Bunion, left foot M21.612 Primary osteoarthritis of right hip M16.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 (HCC) M05.79 Mixed hyperlipidemia E78.2 Thyroid nodule 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 Ruptured extensor tendon of hand or wrist, left, initial encounter S66.812A Anthony Way MD documented in this encounter Nursing Notes * Liliya Florentino LPN - 07/13/2022 2:57 PM EST Referred by Dr Carlos Alberto Matthews for left 4th finger pain X 2 months after RA flair. interferes with playing piano. Liliya BLACK documented in this encounter Plan of Treatment Upcoming Encounters Date Type Specialty Care Team Description 08/22/2022 Office Visit Rheumatology Carlos Alberto Matthews MD [address] [place] [address] [place] [address] 09/24/2022 Office Visit Orth[address]ics Anthony Way MD 132 [facility] [place] [address] 11/07/2022 [facility] [address] [place] [address] Scheduled Referrals Name Type Priority Associated Diagnoses Order Schedule ORTHOPAEDICS REFERRAL OP Referral Within 10 days (routine) Rheumatoid arthritis involving multiple sites with positive rheumatoid factor (HCC) Ordered: 05/09/2022 Health Maintenance Due Date Last Done Comments Hepatitis C Screening 1963 Hepatitis B (1 of 3 - Risk 3-dose series) 2003 FOBT ANNUALLY,AGES 18-90 03/22/2017 03/22/2016, 09/26 Zoster Vaccines (2 of 2) 12/26/2020 10/31/2020, 12/25 Depression Screening, Annual for Pts 12 and Over 02/17/2021 02/18/2020 COVID-19 Vaccine (4 - Booster for Pfizer series) 04/26/2021 03/01/2021, 08/03/2020, 07/13/2020 Alb / Creat Ratio 03/16/2022 03/16/2021, , 01/01/2014 CKD PHOS USE SMARTSET 20625 03/16/202202/25, 03/15/2020, 10/22/2018, Additional history exists GFR - Renal Function 06/08/2022 12/06/2021, 03/16/2021, 03/16/2021, Additional history exists CKD HGB USE SMARTSET 55322 01/09/202301/09, 12/06/2021, 05/02/2021, Additional history exists DTaP,Tdap,and [...] as of this encounter Visit Diagnoses Diagnosis Ruptured extensor tendon of hand or wrist, left, initial encounter- Primary documented in this encounter Care Teams Pay Station Collector Relationship Specialty Start Date End Date William Joseph MD [address] [place] [address] PCP - General Internal Medicine 03/18/12 documented as of this encounter
--- OUTSIDE RECORDS SUMMARY | 2023-01-29 05:03 | External Medical Summary | Summary of Care ---
Author Name Unknown Organization [facility] Address [address] [place] [address] Phone [phone] Care Team Providers Care Curtain Hemmer Automatic Name Role Phone William Joseph MD Primary Care Provider + Reason for Visit * Reason Comments Rheum Follow Up Follow up - RA Encounter Details Date Type Department Care Team Description 08/22/2022 Office Visit Rheumatology [facility] [address] [facility] [place] [address] Harry Brooks MD [address] [facility] [place] [address] Rheumatoid arthritis involving multiple sites with positive rheumatoid factor (HCC)*; Encounter for therapeutic drug monitoring; 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) Allergies No known active allergiesdocumented as of this encounter (statuses as of 08/22/2022) Medications Medication Sig Dispensed Refills Start Date [...] as of this encounter (statuses as of 08/22/2022) Active Problems Problem Noted Date Ruptured extensor [...] as of this encounter (statuses as of 08/22/2022) Resolved Problems Problem Noted Date Resolved Date Secondary hyperparathyroidism 08/10/2019 History of rheumatoid arthritis 09/04/2017 08/20/2018 History of rheumatoid arthritis 01/06/2016 07/27/2016 Kidney disease, chronic, stage III (GFR 30-59 ml /min) 08/09/2014 07/30/2017 Overview: Per CKD protocol #1 HTN, goal below 140/90 8 Kidney disease, chronic, stage III (GFR 30-59 ml /min) 03/24/2012 documented as of this encounter (statuses as of 08/22/2022) Immunizations Name Administration Dates Next Due COVID-19 [...] Sign Reading Time Taken Comments Blood Pressure 140/80 08/22/2022 1:15 PM EDT Pulse - - Temperature 36.6 C (97.8 F) 08/22/2022 1:15 PM ED T Respiratory Rate - - Oxygen Saturation - - Inhaled Oxygen Concentration - - Weight 72.6 kg (160 lb) 08/22/2022 1:15 PM EDT Height - - Body Mass Index 25.82 11/10/2021 1:55 PM EDT documented in this encounter Progress Notes * Harry Brooks MD - 08/22/2022 3:34 PM EDT Progress Notes Today's Visit Note 08/22/2022 Harry Brooks MD Assessment Diagnosis Comment (M05.79) Rheumatoid arthritis involving multiple sites with positive rheumatoid factor (HCC) (primary encounter diagnosis) (Z51.81) Encounter for therapeutic drug monitoring (I12.9, N18.30) 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) Comment he has had improvement with Humira and will continue with treatment. Will update labs and follow. Plan 1. Continue with Humira every other week 2. labs ordered and slips given to him 3. return to clinic in 3-4 months History "Mr. Garcia is a 77 year old man last seen in Rheumatology today (08-22-22). He has h/o Rheumatoid arthritis involving multiple sites with positive rheumatoid factor (HCC), Mixed hyperlipidemia, 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), Bronchiectasis (HCC), Thyroid nodule, MGUS (monoclonal gammopathy of unknown significance), Pernicious anemia, and Bunion, left foot." Temporary History he has been on humira for about 3 months now. it does seem to be working for him but not completely. he lloyd snot less discomfort in his joints and no swelling to his right knee. he has noted exacerbation of his eczema since starting humira. he just took it this past saturday. he still has had some flares. he reports one flare lead to tendon issues of left hand and saw Dr Way who discussed possi ble surgery for it. needs blood work. Permanent History diagnosed with RA in 2001 but now burnt out, off DMARD therapy arava - GI upset MTX - fatigue, GI upset Condition Summary Date Description 05/09/2022 RHEUMATOLOGY [facility] with Dr. Brooks (Rheumatoid arthritis involving multiple sites with positive rheumatoid factor (HCC)) Review of Systems (ROS) ROS Symptoms General none HEENT none MS/Neuro joint pains, swelling. Skin rash Cardiopulmonary bronchiectasis Gastrointestinal none Genitourinary none Medications Rheumatology Meds Other Meds ADALIMUMAB 40 MG/0.4ML Inject 0.4 mL under the skin every 14 days. Dx Code M05.79, pt does not needa starter dose AMLODIPINE BESY-BENAZEPRIL HCL 2.5-10 MG OR CAPS Take 1 Capsule by mouth in the morning. PREDNISONE 5 MG Take 1 Tablet (5 mg) by mouth in the morning. BENAZEPRIL HCL 5 MG OR TABS Take 1 Tablet by mouth in the morning. BENZONATATE 100 MG OR CAPS Take by mouth 1 Capsule 2 times a day as needed for Cough. Do not cut, crush, or chew. CYANOCOBALAMIN 1000 MCG/ML IJ SOLN inject 1ml into a large muscle every month FLUTICASONE PROPIONATE HFA 44 MCG/ACT IN AERO Inhale by mouth 1 Puff in the morning AND 1 Puff before bedtime. VITAMIN D3 50 MCG (1999 UT) OR TABS Take 0.5 Tablets by mouth. 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 No active synovitis to the hands or wrists. Crepitus on exam both knees without effusions. Neck supple, no masses, JVD, or thyromegaly Lymph Nodes no lymphadenopathy Heart regular rate and rhythm, no murmurs or rubs Lungs Diffuse rhonchi and some expiratory wheezing noted Abdomen soft, normal bowel sounds, no masses or organomegaly Outcome Measures Measure Today Previous MDHAQ Pain Fatigue Stiffness Patient Global 2 08/22/2022 3 05/09/2022 Rapid3 Tender Score 0 08/22/2022 0 05/09/2022 Swollen Score 0 08/22/2022 0 05/09/2022 Physician Global Score 2 08/22/2022 3 05/09/2022 Patient Global Score 2 08/22/2022 3 05/09/2022 CDAI 4 08/22/2022 6 05/09/2022 Care Gaps As Of 08/19/2022 Physician closed RA on DMARD RA, on DMARD N/A Active RA on DMARD (CDAI > 10) Inactive RA (CDAI <= 10) closed RA at Low Disease Activity Low Disease Activity: CDAI <= 10 closed Serial CDAI (>50% of visits) CDAI Historically Completed (>= 50% of Visits) open RA with MDHAQ MDHAQ Not Completed N/A Biologic De-escalation Candidate Does Not Qualify for Biological De-escalation Nurse closed TB Testing if on Biologic TB Testing Completed closed Flu Vaccine Flu Vaccine Completed closed Pneumococcal Vaccine 13 or 23 Pneumococcal Vaccine Completed open Zoster Vaccine (Shingrix) Needs Second Shingrix Vaccine Treat To Target - Provider Goal Measure Current Target CDAI 4 10 Opportunity No changes required The patient does not have enough data on file or a decision was made at a prior visit. Signature HARRY BROOKS documented in this encounter Nursing Notes * Bibiana Carr LPN - 08/22/2022 1:15 PM EDT Chief Complaint Patient presents with Rheum Follow Up Follow up - RA documented in this encounter Plan of Treatment Upcoming Encounters Date Type Specialty Care Team Description 09/24/2022 Office Visit Orthopedics Anthony Way MD [address] [place] [address] 11/07/2022 Office Visit Internal Medicine William Joseph MD [address] [facility] [place] [address] 12/06/2022 Office Visit Rheumatology Harry Brooks MD [address] [facility] [place], [place] [address] Scheduled Orders Name Type Priority Associated Diagnoses Orde r Schedule CBC WITH WBC DIFFERENTIAL Lab Routine Rheumatoid arthritis involving multiple sites with positive rheumatoid factor (HCC) Encounter for therapeutic drug monitoring Ordered: 08/22/2022 COMPREHENSIVE METABOLIC PANEL Lab Routine Rheumatoid arthritis involving multiple sites with positive rheumatoid factor (HCC) Encounter for therapeutic drug monitoring Ordered: 08/22/2022 ERYTHROCYTE SEDIMENTATION RATE (ESR) Lab Routine Rheumatoid arthritis involving multiple sites with positive rheumatoid factor (HCC) Encounter for therapeutic drug monitoring Ordered: 08/22/2022 Health Maintenance Due Date Last Done Comments [...] 021, 08/03/2016, 01/01/2014 CKD PHOS USE SMARTSET 69009 03/16/202202/25, 03/15/2020, 10/22/2018, Additional history exists GFR - Renal Function 06/08/2022 12/06/2021, 03/16/2021, 03/16/2021, Additional history exists CKD HGB USE SMARTSET 38088 01/09/202301/09, 12/06/2021, 05/02/2021, Additional history exists DTaP,Tdap,and [...] as of this encounter Visit Diagnoses Diagnosis Rheumatoid arthritis involving multiple sites with positive rheumatoid factor (HCC)- Primary Encounter for therapeutic drug monitoring 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, or unspecified documented in this encounter Care Teams Curtain Hemmer Automatic Relationship Specialty Start Date End Date William Joseph MD [address] [place] [address] PCP - General Internal Medicine 03/18/12 documented as of this encounter
--- OUTSIDE RECORDS SUMMARY | 2023-01-29 05:03 | External Medical Summary | Summary of Care ---
Author Name Unknown Organization [facility] Address [address] [place] [address] Phone [phone] Care Team Providers Care Beet End Supervisor Name Role Phone William Joseph MD Primary Care Provider + Reason for Visit * Reason Onset Date Comments Advice 09/26/2022 Encounter Details Date Type Department Care Team Description 09/26/2022 Telephone General Internal Medicine [facility] [place] [address] [facility] [place] [id number] William Joseph MD [address] [facility] [address] Advice Allergies No known active allergiesdocumented as [...] encounter Miscellaneous Notes * Telephone Encounter - An Lilly LPN - 09/26/2022 2:19 PM EDT Patient notified of message below. Verbalized understanding. Please assist with scheduling appointment. * Telephone Encounter - William Joseph MD - 09/26/2022 12:47 PM EDT Suggest OV brielle, er for severe pain or weakness. * Telephone Encounter - Sandip Khoury CMA [...] on with him. Please call Ignacio at [phone] documented in this encounter Plan of Treatment Upcoming Encounters Date Type Specialty Care Team Description 11/07/2022 Office Visit Internal Medicine William Joseph MD [address] [facility] [place] [address] 12/06/2022 Office Visit Rheumatology Carlos Alberto Matthews MD [address] [place] [address] Health Maintenance Due Date Last Done Comments [...] 021, 08/03/2016, 01/01/2014 CKD PHOS USE SMARTSET 07146 03/16/202202/25, 03/15/2020, 10/22/2018, Additional history exists GFR - Renal Function 06/08/2022 12/06/2021, 03/16/2021, 03/16/2021, Additional history exists CKD HGB USE SMARTSET 97943 01/09/202301/09, 12/06/2021, 05/02/2021, Additional history exists DTaP,Tdap,and [...] filedocumented as of this encounter Care Teams Beet End Supervisor Relationship Specialty Start Date End Date William Joseph MD [address] [facility] [place] [address] PCP - General Internal Medicine 03/18/12 documented as of this encounter
--- OUTSIDE RECORDS SUMMARY | 2023-01-29 05:03 | External Medical Summary | Summary of Care ---
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 [...] 02/13/2022 Active Cyanocobalamin 1000 MCG/ML Injection Solution (Cyanocobalamin)In dications:Pernicio us anemia inject 1ml into a large muscle every month 1 mL 4 04/05/2022 Active predniSONE 5 MG Oral Tablet (Deltasone)Indicat [...] the morning. 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) [...] as of this encounter (statuses as of 06/11/2022) Resolved Problems Problem Noted Date Resolved Date Secondary hyperparathyroidism 08/10/2019 History of rheumatoid arthritis 09/04/2017 08/20/2018 History of rheumatoid arthritis 01/06/2016 07/27/2016 Kidney disease, chronic, stage III (GFR 30-59 ml /min) 08/09/2014 07/30/2017 Overview: Per CKD protocol #1 HTN, goal below 140/90 8 Kidney disease, chronic, stage III (GFR 30-59 ml /min) 03/24/2012 documented as of this encounter (statuses as of 06/11/2022) Immunizations Name Administration Dates Next Due COVID-19 mRNA, LNP-s, No Pre serve, 2-Dose Series (Capton) 03/01/2021,08/03/2020,07/13/2020 Pneumococcal Conjugate Vacc, 13 Valent (Prevnar) [...] encounter Miscellaneous Notes * Telephone Encounter - Karthik Patrick MD - 06/11/2022 5:18 PM ESTSigned Prescriptions: Disp Refills Benazepril HCl 5 MG Oral Tablet (Lotensin) 90 Tab*1 Sig: Take 1 Tablet by mouth in the morning.Authorizing Provider: KARTHIK PATRICK amLODIPine Besy-Benazepril HCl 2.5-10 MG O*90 Cap*1 Sig: Take 1 Capsule by mouth in the morning.Authorizing Provider: DOUG PATRICK * Telephone Encounter - An Lilly LPN - 06/11/2022 4:21 PM ESTPending Prescriptions: Disp Refills Benazepril HCl 5 MG Oral Tablet (Lotensin) 90 Tab*1 Sig: Take 1Tablet by mouth in the morning. amLODIPine Besy-Benazepril HCl 2.5-10 MG O*30 Cap*5 Sig: Take 1 Capsule by mouth in the morning. documented in this encounter Plan of Treatment Upcoming Encounters Date Type Specialty Care Team Description 07/13/2022 Office [address] Anthony [address] MD [address] [place] [address] 08/22/2022 Office Visit Rheumatology Carlos Alberto Matthews MD [address] [place] [address] 11/07/2022 Office Visit Internal Medicine William Joseph MD 200 [place] [address] Health Maintenance Due Date Last Done Comments [...] 03/16/2021, , 01/01/2014 CKD PHOS USE SMARTSET 66985 03/16/202202/25, 03/15/2020, 10/22/2018, Additional history exists GFR - Renal Function 06/08/2022 12/06/2021, 03/16/2021, 03/16/2021, Additional history exists CKD HGB USE SMARTSET 20254 01/09/202301/09, 12/06/2021, 05/02/2021, Additional history exists DTaP,Tdap,and [...] unspecified documented in this encounter Care Teams Tree Deadener Relationship Specialty Start Date End Date William Joseph MD [address] [place] [address], [place] [address] PCP - General Internal Medicine 03/18/12 documented as of this encounter
--- OUTSIDE RECORDS SUMMARY | 2023-01-29 05:03 | External Medical Summary ---
Author Name Unknown Address Unknown Organization K01:[facility]ATORY [facility] - [address] [facility] [facility] [address] Laboratory Report Ordering Provider Test Date Status CRISSY BELTRAN 09/27/2022 14:37:41 Final Observation Date Value Abnormality Reference (Units ) Status SYNC LEUKOCYTES IN BLOOD BY AUTOMATED COUNT 09/27/2022 14:37:41 10.60 4.00-10.80 (K/uL) Final Segs 09/27/2022 14:37:41 79.2 Above high normal 40.0-75.0 (%) Final Lymphs % 09/27/2022 14:37:41 9.0 Below low normal 18.0-42.0 (%) Final Monos 09/27/2022 14:37:41 9.1 1.0-11.0 (%) Final Eosinophils 09/27/2022 14:37:41 1.3 0.0-6.0 (%) Final Basos 09/27/2022 14:37:41 0.9 0.0-2.0 (%) Final Immature Granulocyte, Percent 09/27/2022 14:37:41 0.5 0.0-2.0 (%) Final Absolute Segs 09/27/2022 14:37:41 8.40 Above high normal 1.80-7.70 (K/uL) Final Lymphs, absolute 09/27/2022 14:37:41 0.95 Below low normal 1.00-4.80 (K/ul) Final Monos, Abs 09/27/2022 14:37:41 0.96 0.00-1.10 (K/uL) Final Eos, Abs 09/27/2022 14:37:41 0.14 0.00-0.70 (K/uL) Final Basos, Abs 09/27/2022 14:37:41 0.10 0.00-0.20 (K/uL) Final Immature Granulocytes, Number 09/27/2022 14:37:41 0.05 0.00-0.20 (K/uL) Final Performing Location [facility] [place] [facility] [address] [facility] [address]
--- OUTSIDE RECORDS SUMMARY | 2023-01-29 05:03 | External Medical Summary ---
Author Name Unknown Address Unknown Organization K01:[facility] [place] [address] [place] [address] Laboratory Report Ordering Provider Test Date Status PARADISECARLTONCRISSY 09/27/2022 14:37:41 Final Observation Date Value Abnormality Reference (Units ) Status CRP, low-sensitivity 09/27/2022 14:37:41 101 Above high normal <=5 (mg/L) Final Performing Location LABORATORY [facility] - [address] [place] [address]
--- OUTSIDE RECORDS SUMMARY | 2023-01-29 05:03 | External Medical Summary | Summary of Care ---
Author Name Unknown Organization [facility] Address [address] [place] [address] Phone [phone] Care Team Providers Care Insulation Cupola Operator Name Role Phone William Joseph MD Primary Care Provider + Reason for Visit * Reason Onset Date Comments Advice 09/26/2022 Encounter Details Date Type Department Care Team Description 09/26/2022 Telephone General Internal Medicine [facility] [place] 200 [facility] [place] [phone] William Joseph MD [address] [place] [address] Advice Allergies No known active allergiesdocumented as [...] on with him. Please call Ignacio at [phone] documented in this encounter Plan of Treatment Upcoming Encounters Date Type Specialty Care Team Description 11/07/2022 Office Visit Internal Medicine William Joseph MD [address] [place] [address], [place] [address] 12/06/2022 Office Visit Rheumatology Carlos Alberto [place] MD [address] [place] [address] Health Maintenance Due Date Last Done Comments [...] 021, 08/03/2016, 01/01/2014 CKD PHOS USE SMARTSET 92497 03/16/202202/25, 03/15/2020, 10/22/2018, Additional history exists GFR - Renal Function 06/08/2022 12/06/2021, 03/16/2021, 03/16/2021, Additional history exists CKD HGB USE SMARTSET 55469 01/09/202301/09, 12/06/2021, 05/02/2021, Additional history exists DTaP,Tdap,and [...] filedocumented as of this encounter Care Teams Insulation Cupola Operator Relationship Specialty Start Date End Date William Joseph MD [address] [place] [address] PCP - General Internal Medicine 03/18/12 documented as of this encounter
--- OUTSIDE RECORDS SUMMARY | 2023-01-29 05:03 | External Medical Summary | Summary of Care ---
Author Name Unknown Organization [facility] Address [address] [place] [address] Phone [phone] Care Team Providers Care Dewer Name Role Phone William Joseph MD Primary Care Provider + Reason for Visit * Reason Comments Outpatient Testing Encounter Details Date Type Department Care Team Description 09/27/2022 Laboratory Laboratory, [place] [address] [place] [address] [place], [facility] [address] [place] [address] Pain of left upper arm; Left arm weakness; Neck pain Allergies No known active allergiesdocumented as of this encounter (statuses as of 09/27/2022) Medications Medication Sig Dispensed Refills Start Date [...] as of this encounter (statuses as of 09/27/2022) Active Problems Problem Noted Date Ruptured extensor [...] as of this encounter (statuses as of 09/27/2022) Resolved Problems Problem Noted Date Resolved Date Secondary hyperparathyroidism 08/10/2019 History of rheumatoid arthritis 09/04/2017 08/20/2018 History of rheumatoid arthritis 01/06/2016 07/27/2016 Kidney disease, chronic, stage III (GFR 30-59 ml /min) 08/09/2014 07/30/2017 Overview: Per CKD protocol #1 HTN, goal below 140/90 8 Kidney disease, chronic, stage III (GFR 30-59 ml /min) 03/24/2012 documented as of this encounter (statuses as of 09/27/2022) Immunizations Name Administration Dates Next Due COVID-19 mRNA, LNP-s, No Pre serve, 2-Dose Series (Pharminex) 03/01/2021,08/03/2020,07/13/2020 Pneumococcal Conjugate Vacc, 13 Valent (Prevnar) [...] Visit Internal Medicine William Joseph MD 200 [place] [address] 12/06/2022 Office Visit Rheumatology Carlos Alberto Matthews MD [address] [place], [place] [address] Pending Results Name Type Priority Associated Diagnoses Date /Time TROPONIN T, HIGH SENSITIVITY Lab Routine Pain of left upper arm Left arm weakness 09/27/2022 2:37 PM EDT ERYTHROCYTE SEDIMENTATION RATE (ESR) Lab Routine Neck pain Pain of left upper arm Left arm weakness 09/27/2022 2:37 PM EDT CRP (INFLAMMATORY MARKER) Lab Routine Neck pain Pain of left upper arm Left arm weakness 09/27/2022 2:37 PM EDT CBC WITH WBC DIFFERENTIAL Lab Routine Neck pain Pain of left upper arm Left arm weakness 09/27/2022 2:37 PM EDT COMPREHENSIVE METABOLIC PANEL Lab Routine Neck pain Pain of left upper arm Left arm weakness 09/27/2022 2:37 PM EDT CBC Lab Routine Neck pain Pain of left upper arm Left arm weakness 09/27/2022 2:37 PM EDT DIFFERENTIAL, AUTOMATED Lab Routine Neck pain Pain of left upper arm Left arm weakness 09/27/2022 2:37 PM EDT Health Maintenance Due Date Last [...] 021, 08/03/2016, 01/01/2014 CKD PHOS USE SMARTSET 88054 03/16/202202/25, 03/15/2020, 10/22/2018, Additional history exists GFR - Renal Function 06/08/2022 12/06/2021, 03/16/2021, 03/16/2021, Additional history exists CKD HGB USE SMARTSET 29712 01/09/202301/09, 12/06/2021, 05/02/2021, Additional history exists DTaP,Tdap,and [...] as of this encounter Visit Diagnoses Diagnosis Pain of left upper arm Pain in limb Left arm weakness Other musculoskeletal symptoms referable to limbs Neck pain Cervicalgia documented in this encounter Care Teams Dewer Relationship Specialty Start Date End Date William Joseph MD [address] [place] [address], [place] [address] PCP - General Internal Medicine 03/18/12 documented as of this encounter
--- OUTSIDE RECORDS SUMMARY | 2023-01-29 05:03 | External Medical Summary | Summary of Care ---
Author Name Unknown Organization [facility] Address [address] [place] [address] Phone [phone] Care Team Providers Care Sheet Finisher Name Role Phone iWlliam Joseph MD Primary Care Provider + Reason for Visit * Reason Onset Date Comments Advice 09/26/2022 Encounter Details Date Type Department Care Team Description 09/26/2022 Telephone General Internal Medicine [facility] [place] [address] [facility] [place] [phone] William Joseph MD [address] [place] [address] Advice Allergies No known active allergiesdocumented as [...] * Telephone Encounter - PAULA Weir - 09/26/2022 2:35 PM EDT Pt is scheduled for tomorrow at 2 was offered earlier appts but wanted the 2 pm * Telephone Encounter - An Lilly LPN [...] on with him. Please call Ignacio at [phone] documented in this encounter Plan of Treatment Upcoming Encounters Date Type Specialty Care Team Description 09/27/2022 Office Visit Family Medicine Awais Nixon MD [address] [place] [address] 11/07/2022 Office Visit Internal Medicine William Joseph MD [address] [place] [address] 12/06/2022 Office Visit Rheumatology Carlos Alberto Matthews MD [address] [place] [address] Health Maintenance Due Date Last Done Comments [...] 021, 08/03/2016, 01/01/2014 CKD PHOS USE SMARTSET 58184 03/16/202202/25, 03/15/2020, 10/22/2018, Additional history exists GFR - Renal Function 06/08/2022 12/06/2021, 03/16/2021, 03/16/2021, Additional history exists CKD HGB USE SMARTSET 36102 01/09/202301/09, 12/06/2021, 05/02/2021, Additional history exists DTaP,Tdap,and [...] filedocumented as of this encounter Care Teams Sheet Finisher Relationship Specialty Start Date End Date William Joseph MD [address] [place] [address] PCP - General Internal Medicine 03/18/12 documented as of this encounter
--- OUTSIDE RECORDS SUMMARY | 2023-01-29 05:03 | External Medical Summary | Summary of Care ---
Author Name Unknown Organization [facility] Address [address] [place] [address] Phone [phone] Care Team Providers Care Splitter Head Name Role Phone William Joseph MD Primary Care Provider + Reason for Visit * Reason Onset Date Comments Advice 09/26/2022 Encounter Details Date Type Department Care Team Description 09/26/2022 Telephone General Internal Medicine [facility] [place] 200 [facility] [place] [phone] William Joseph MD 200 [place] [address] Advice Allergies No known active allergiesdocumented as [...] on with him. Please call Ignacio at [phone] documented in this encounter Plan of Treatment Upcoming Encounters Date Type Specialty Care Team Description 11/07/2022 Office Visit Internal Medicine William Joseph MD [address] [place] [address] 12/06/2022 Office Visit Rheumatology Carlos Alberto [place] MD [address] [place] [address] Health Maintenance Due Date Last Done Comments [...] 021, 08/03/2016, 01/01/2014 CKD PHOS USE SMARTSET 40921 03/16/2022 1005/2020, 03/15/2020, 10/22/2018, Additional history exists GFR - Renal Function 06/08/2022 12/06/2021, 03/16/2021, 03/16/2021, Additional history exists CKD HGB USE SMARTSET 91607 01/09/202301/09, 12/06/2021, 05/02/2021, Additional history exists DTaP,Tdap,and [...] filedocumented as of this encounter Care Teams Splitter Head Relationship Specialty Start Date End Date William Joseph MD [address] [place] [address], [place] [address] PCP - General Internal Medicine 03/18/12 documented as of this encounter
--- OUTSIDE RECORDS SUMMARY | 2023-01-29 05:03 | External Medical Summary | Summary of Care ---
Author Name Unknown Organization [facility] Address [address] [place] [address] Phone [phone] Care Team Providers Care Compositor Apprentice Name Role Phone William Joseph MD Primary Care Provider + Reason for Visit * Reason Onset Date Comments Advice 09/26/2022 Encounter Details Date Type Department Care Team Description 09/26/2022 Telephone General Internal Medicine [facility] [place] 200 [facility] [place] [phone] William Joseph MD 200 [place] [address] Advice Allergies No known active allergiesdocumented as [...] on with him. Please call Ignacio at [phone] documented in this encounter Plan of Treatment Upcoming Encounters Date Type Specialty Care Team Description 11/07/2022 Office Visit Internal Medicine William Joseph MD [address] [place] [address] 12/06/2022 Office Visit Rheumatology Carlos Alberto [place] MD [address] [facility] [place] [place] [address] Health Maintenance Due Date Last Done Comments [...] 021, 08/03/2016, 01/01/2014 CKD PHOS USE SMARTSET 52616 03/16/2022 1005/2020, 03/15/2020, 10/22/2018, Additional history exists GFR - Renal Function 06/08/2022 12/06/2021, 03/16/2021, 03/16/2021, Additional history exists CKD HGB USE SMARTSET 33433 01/09/202301/09, 12/06/2021, 05/02/2021, Additional history exists DTaP,Tdap,and [...] filedocumented as of this encounter Care Teams Compositor Apprentice Relationship Specialty Start Date End Date William Joseph MD [address] [place] [address], [place] [address] PCP - General Internal Medicine 03/18/12 documented as of this encounter
--- OUTSIDE RECORDS SUMMARY | 2023-01-29 05:03 | External Medical Summary ---
Author Name Unknown Address Unknown Organization K01:LABORATORY [facility] [place] - [address] [facility] [address] Laboratory Report Ordering Provider Test Date Status CRISSY BELTRAN 09/27/2022 14:37:41 Final Observation Date Value Abnormality Reference (Units ) Status BUN 09/27/2022 14:37:41 24 Above high normal 6-20 (mg/dL) Final Creatinine 09/27/2022 14:37:41 1.3 Above high normal 0.6-1.2 (mg/dL) Final Glomerular filtration rate/1.73 sq M.predicted [Volume Rate/Area] in Serum, Plasma or Blood by Creatinine-based formula (CKD-EPI) 09/27/2022 14:37:41 57 Below low normal >=60 (mL/min) Final Performing Location LABORATORY [facility] [place] - [address] [facility] [address]
--- OUTSIDE RECORDS SUMMARY | 2023-01-29 05:03 | External Medical Summary ---
Author Name Unknown Address Unknown Organization K01[place] [place] [address] [facility] [place] [address] Laboratory Report Ordering Provider Test Date Status CRISSY BELTRAN 09/27/2022 14:37:41 Final Observation Date Value Abnormality Reference (Units ) Status WBC, Total 09/27/2022 14:37:41 10.60 4.00-10.80 (K/uL) Final RBC 09/27/2022 14:37:41 5.44 4.50-5.25 (M/uL) Final Hemoglobin 09/27/2022 14:37:41 16.0 14.0-16.8 (g/dL) Final HCT 09/27/2022 14:37:41 50.8 Above high normal 40.0-48.4 (%) Final MCV 09/27/2022 14:37:41 93.4 82.0-99.5 (fL) Final MCH 09/27/2022 14:37:41 29.4 27.0-34.0 (pg) Final MCHC 09/27/2022 14:37:41 31.5 32.0-36.0 (g/dL) Final RDW 09/27/2022 14:37:41 13.2 11.5-15.5 (%) Final Platelets 09/27/2022 14:37:41 220 140-400 (K/uL) Final MPV 09/27/2022 14:37:41 11.8 6.6-11.1 (fL) Final Nucleated erythrocytes/100 leukocytes [Ratio] in Blood by Automated count 09/27/2022 14:37:41 0 <=0 (/100 WBCs) Final Performing Location [facility] [place] [address] [place] [address]
--- OUTSIDE RECORDS SUMMARY | 2023-01-29 05:03 | External Medical Summary | Summary of Care ---
Author Name Unknown Organization [facility] Address [address] [place] [address] Phone [phone] Care Team Providers Care Physician Coding Specialist Name Role Phone William Joseph MD Primary Care Provider + Reason for Referral * Evaluate & Treat - Unlimited Visits (Within 10 days (routine)) - Pending Review Specialty Diagnoses / Procedures Referred By Contac t Referred To Contact Physical Therapy / Physical Medicine And Rehab Diagnoses Neck pain Pain of left upper arm Left arm weakness Awais Nixon MD [address] [place] [address] Referral ID Status Reason Start Date Expiration Date Visits Requested Visits Authorized [id number] Pending Review Specialty Services Required 09/27/[phone] Question Answer Referral Priority Within 10 days (routine) Reason for Visit * Reason Comments Acute L upper shoulder num bness, pt states that it goes and come, onset since September 06. Pt states that has low energy and brain fog. Encounter Details Date Type Department Care Team Description 09/27/[address] 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); Loss of weight Allergies No known active allergiesdocumented as of [...] Sign Reading Time Taken Comments Blood Pressure 138/84 09/27/2022 2:02 PM EDT Pulse 90 09/27/2022 2:02 PM EDT Temperature 36.6 C (97.8 F) 09/27/2022 2:02 PM ED T Respiratory Rate 16 09/27/2022 2:02 PM EDT Oxygen Saturation 97% 09/27/2022 2:02 PM EDT Inhaled Oxygen Concentration - - Weight 68.6 kg (151 lb 4.8 oz) 09/27/2022 2:02 P M EDT Height 167.6 cm (5' 6") 09/27/2022 2:02 PM EDT Body Mass Index 24.42 09/27/2022 2:02 PM EDT documented in this encounter Patient Instructions * Patient Instructions* Aawis Nixon MD - 09/27/2022 2:24 PM EDT F/u with physical therapy and get xray Take medications as instructed And will f/u blood tests And update me in 2-3 wks after starting PT documented in this encounter Progress Notes * Awais Nixon MD - 09/27/2022 2:19 PM EDT Images from the original note were not included. Subjective Ignaico Garcia is a 77 year old male. Chief Complaint Patient presents with Acute L upper shoulder numbness, pt states that it goes and come, onset since September 06. Pt states that has low energy and brain fog. HPI: Here for progressing post neck pain, lt upper back shoulder pain and lt upper arm weakness, burning, numbness Denies fever, cough, chest pain, SOB Arm numbness tingling throughout the day , comes and goes Known RA , Taking humira and prednisone prn for flare up F/u with rheuma CKD, stable , recent test was normal kidney fx BP - stable Noticed weight loss, has poor appetite If weight loss continues, should f/u with PCP for cancer screen too PMH: Patient Active Problem List Diagnosis Code Encounter [...] hand or wrist, left, initial encounter S66.812A Current Outpatient Medications Medication Sig Dispense Refill [...] mouth in the morning. 90 Capsule 1 methylPREDNISolone 4 MG Oral Tablet Therapy Pack (Medrol Dosepack) follow package directions 21Tablet 0 Gabapentin 300 MG Oral Capsule (Neurontin) Take 1 Capsule by mouth 2 times a day as needed (lt arm nubmness weakness). 60 Capsule 3 No current facility-administered medications for this visit. Past Medical History: Diagnosis Date Bronchiectasis (HCC) 12/08/2013 Encounter for long-term (current) use of other medications 07/27/2010 History of rheumatoid arthritis 01/06/2016 HTN, goal below 140/90 Pernicious anemia 08/24/2010 Thyroid nodule 08/10/2019 Past Surgical History: Procedure Laterality Date DENTAL SURGERY PROCEDURE NEC 1980 REMOVE TONSILS & ADENOIDS, UNDER 12 1954 Review of patient's allergies indicates: No Known Allergies Family History Problem Relation Age of Onset Other (osteoarthritis [Other]) Mother Hypertension Mother Family Status Relation Status Mo at age 87 Fa at age 92 Son Alive Sis Alive Son Alive Son Alive Social History Socioeconomic History Marital status: Spouse name: Emily Number of children: 3 Years of education: 14 Highest education level: Not on file Occupational History 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 Negative for appetite change, chills, diaphoresis, fatigue, fever and unexpected weight change. HENT: Negative for congestion, ear pain, hearing loss, sore throat and tinnitus. Eyes: Negative for visual disturbance. Respiratory: Negative for cough, chest tightness, shortness of breath and wheezing. Cardiovascular: Negative. Negative for chest pain, palpitations and leg swelling. Gastrointestinal: Negative for abdominal distention and abdominal pain. Endocrine: Negative. Musculoskeletal: Positive for arthralgias, neck pain and neck stiffness. Allergic/Immunologic: Positive for immunocompromised state. Neurological: Positive for weakness (lt upper arm ), numbness (lt arm, ) and headaches (post neck ). Negative for dizziness, tremors, seizures, syncope, facial asymmetry, speech difficulty and light-headedness. Psychiatric/Behavioral: Positive for sleep disturbance. Negative for agitation and behavioral problems. The patient is nervous/anxious. Objective BP 138/84 (BP Site: Left Arm, BP Position: Sitting, BP Cuff Size: Regular) | Pulse 90 | Temp 36.6 C (97.8 F) (Temporal Artery) | Resp 16 | Ht 1.676 m (5' 6") | Wt 68.6 kg (151 lb 4.8 oz) | SpO2 97% | BMI 24.42 kg/m | BSA 1.79 m Physical Exam Constitutional: General: He is not in acute distress. Appearance: Normal appearance. He is not ill-appearing, toxic-appearing or diaphoretic. HENT: Head: Normocephalic and atraumatic. Nose: Nose normal. Eyes: Extraocular Movements: Extraocular movements intact. Conjunctiva/sclera: Conjunctivae normal. Pupils: Pupils are equal, round, and reactive to light. Neck: Cardiovascular: Rate and Rhythm: Normal rate and regular rhythm. Pulmonary: Effort: Pulmonary effort is normal. No respiratory distress. Musculoskeletal: General: Tenderness present. Cervical back: Tenderness (post neck ) present. Right lower leg: No edema. Left lower leg: No edema. Lymphadenopathy: Cervical: No cervical adenopathy. Neurological: General: No focal deficit present. Mental Status: He is alert and oriented to person, place, and time. Cranial Nerves: No cranial nerve deficit. Psychiatric: Behavior: Behavior normal. ASSESSMENT/PLAN: Neck pain (Primary) - XR C SPINE 4-5 VIEWS - ERYTHROCYTE SEDIMENTATION RATE (ESR); Future; Expected date: 09/27/2022 - CRP (INFLAMMATORY MARKER); Future; Expected date: 09/27/2022 - PHYSICAL THERAPY REFERRAL OP - CBC WITH WBC DIFFERENTIAL; Future; Expected date: 09/27/2022 - COMPREHENSIVE METABOLIC PANEL; Future; Expected date: 09/27/2022 Pain of left upper arm - XR C SPINE 4-5 VIEWS - TROPONIN T, HIGH SENSITIVITY; Future; Expected date: 09/27/2022 - ERYTHROCYTE SEDIMENTATION RATE (ESR); Future; Expected date: 09/27/2022 - CRP (INFLAMMATORY MARKER); Future; Expected date: 09/27/2022 - PHYSICAL THERAPY REFERRAL OP - CBC WITH WBC DIFFERENTIAL; Future; Expected date: 09/27/2022 - COMPREHENSIVE METABOLIC PANEL; Future; Expected date: 09/27/2022 Left arm weakness - XR C SPINE 4-5 VIEWS - TROPONIN T, HIGH SENSITIVITY; Future; Expected date: 09/27/2022 - ERYTHROCYTE SEDIMENTATION RATE (ESR); Future; Expected date: 09/27/2022 - CRP (INFLAMMATORY MARKER); Future; Expected date: 09/27/2022 - PHYSICAL THERAPY REFERRAL OP - CBC WITH WBC DIFFERENTIAL; Future; Expected date: 09/27/2022 - COMPREHENSIVE METABOLIC PANEL; Future; Expected date: 09/27/2022 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 --> Patient Instructions F/u with physical therapy and get xray Take medications as instructed And will f/u blood tests And update me in 2-3 wks after starting PT Awais Nixon MD documented in this encounter Nursing Notes * NAHEED Miller - 09/27/2022 2:02 PM EDT Ignacio Garcia is a 77 year old male who presents today for Chief Complaint Patient presents with Acute L upper shoulder numbness, pt states that it goes and come, onset since September 06. Pt states that has low energy and brain fog. documented in this encounter Plan of Treatment Upcoming Encounters Date Type Specialty Care Team Description 11/07/2022 Office Visit Internal Medicine William Joseph MD [address] [place] [address] 12/06/2022 Office Visit Rheumatology Carlos Alberto Matthews MD [address] [place] [address] Pending Results Name Type Priority Associated Diagnoses [...] Left arm weakness 09/27/2022 2:37 PM EDT Scheduled Orders Name Type Priority Associated Diagnoses Orde r Schedule XR C SPINE 4-5 VIEWS Medical Imaging Routine Neck pain Pain of left upper arm Left arm weakness Ordered: 09/27/2022 TROPONIN T, HIGH SENSITIVITY Lab Routine Pain of left upper arm Left arm weakness Expected: 09/27/2022 (Approximate), Expires: 09/27/2023 ERYTHROCYTE SEDIMENTATION RATE (ESR) Lab Routine Neck pain Pain of left upper arm Left arm weakness Expected: 09/27/2022 (Approximate), Expires: 09/27/2023 CRP (INFLAMMATORY MARKER) Lab Routine Neck pain Pain of left upper arm Left arm weakness Expected: 09/27/2022 (Approximate), Expires: 09/27/2023 CBC WITH WBC DIFFERENTIAL Lab Routine Neck pain Pain of left upper arm Left arm weakness Expected: 09/27/2022 (Approximate), Expires: 09/28/2023 COMPREHENSIVE METABOLIC PANEL Lab Routine Neck pain Pain of left upper arm Left arm weakness Expected: 09/27/2022 (Approximate), Expires: 09/27/2023 Scheduled Referrals Name Type Priority Associated Diagnoses Orde r Schedule PHYSICAL THERAPY REFERRAL OP Referral Within 10 days (routine) Neck pain Pain of left upper arm Left arm weakness Ordered: 09/27/2022 Health Maintenance Due Date Last Done Comments [...] 021, 08/03/2016, 01/01/2014 CKD PHOS USE SMARTSET 49122 03/16/202202/25, 03/15/2020, 10/22/2018, Additional history exists GFR - Renal Function 06/08/2022 12/06/2021, 03/16/2021, 03/16/2021, Additional history exists CKD HGB USE SMARTSET 02917 01/09/202301/09, 12/06/2021, 05/02/2021, Additional history exists DTaP,Tdap,and [...] as of this encounter Visit Diagnoses Diagnosis Neck pain- Primary Cervicalgia Pain of left upper arm Pain in limb Left arm weakness Other musculoskeletal symptoms referable to limbs 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
--- OUTSIDE RECORDS SUMMARY | 2023-01-29 05:03 | External Medical Summary ---
Author Name Unknown Address Unknown Organization K01:[facility] [place] [address] [place] [address] Laboratory Report Ordering Provider Test Date Status CRISSY BELTRAN 09/27/2022 14:37:41 Final Observation Date Value Abnormality Reference (Units ) Status Troponin T 09/27/2022 14:37:41 17 <=22 (ng/ L) Final Performing Location [facility] - [address] [place] [id number]
--- OUTSIDE RECORDS SUMMARY | 2023-01-29 05:04 | External Medical Summary | Summary of Care ---
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 Every 2 - 3 days 0 Active predniSONE 5 MG Oral Tablet (Deltasone)Indicat ions:H/O rheumatoid arthritis Take 1 Tab by mouth daily. 30 Tab 5 02/13/2021 Active Benzonatate 100 MG Oral Capsule (Tessalon Perles)Indications :Cough Take by mouth 1 Capsule 2 times a day as needed for Cough. Do not cut, crush, or chew. 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 1 injection. 2 Each 6 02/19/2022 Active Fluticasone Propionate HFA 44 MCG/ACT Inhalation Aerosol (Flovent HFA)Indications:Br onchiectasis (HCC) Inhale by mouth 1 Puff in the morning AND 1 Puff before bedtime. 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 30 Capsule 5 09/27/2021 03/30/2022 Discontinued (Refill) documented as of this encounter (statuses as of 03/30/2022) Active Problems Problem Noted Date MGUS (monoclonal [...] as of this encounter (statuses as of 03/30/2022) Resolved Problems Problem Noted Date Resolved Date Secondary hyperparathyroidism 08/10/2019 History of rheumatoid arthritis 09/04/2017 08/20/2018 History of rheumatoid arthritis 01/06/2016 07/27/2016 Kidney disease, chronic, stage III (GFR 30-59 ml /min) 08/09/2014 07/30/2017 Overview: Per CKD protocol #1 HTN, goal below 140/90 8 Kidney disease, chronic, stage III (GFR 30-59 ml /min) 03/24/2012 documented as of this encounter (statuses as of 03/30/2022) Immunizations Name Administration Dates Next Due COVID-19 mRNA, LNP-s, No Pre serve, 2-Dose Series (Pfizer) 03/01/2021,08/03/2020,07/13/2020 Pneumococcal Conjugate Vacc, 13 Valent (Prevnar) 07/13/2015 Pneumococcal Polysaccharide PPV23 (Pneumovax) 06/08/2013,03/19/2013(Deferred: Patient Refused - not interested) Seasonal Influenza, Quadriva lent Hd (Fluzone Hd) 05/02/2021 Seasonal Influenza, Quadriva lent, No Preserve, 6 [...] Tobacco Use Types Packs/Day Years Used Date Former Smoker Cigarettes 2 35 Quit: 06/25 Smokeless Tobacco: Never Used Alcohol Use Standard Drinks/Week Comments Yes [id number] (1 standard drink = 0.6 oz pure alcohol) occassional Alcohol Habits Answer Date Recorded How often do you have a drink containing alcohol ? Not asked How many drinks containing a lcohol do you have on a typical day when you are drinking? Not asked How often do you have six or more drinks on one occasion? Not asked Comment: occassional 07/30/2017 Food Insecurity Answer Date Recorded Within the [...] Encounters Date Type Specialty Care Team Description 05/09/2022 Office Visit Rheumatology Carlos Alberto [place] MD [address] [facility] [place] [address] 06/01/2022 Office Visit Internal Medicine William Joseph MD [address] [place], [place] [address] Health Maintenance Due Date Last Done Comments Hepatitis C Screening 1963 FOBT ANNUALLY,AGES 18-90 03/22/2017 03/22/2016, 09/26 Zoster Vaccines (2 of 2) 12/26/2020 10/31/2020, 12/25 Depression Screening, Annual for Pts 12 and Over 02/17/2021 02/18/2020 COVID-19 Vaccine (4 - Booster for Pfizer series) 04/26/2021 03/01/2021, 08/03/2020, 07/13/2020 Influenza Vaccine (FLU shot) (#1) 2022 05/02/2021, 03/15/2020, 03/24/2019, Additional history exists Alb / Creat Ratio 03/16/2022 03/16/2021, , 01/01/2014 CKD PHOS USE SMARTSET 99354 03/16/2022 1005/2020, 03/15/2020, 10/22/2018, Additional history exists GFR - Renal Function 06/08/2022 12/06/2021, 03/16/2021, 03/16/2021, Additional history exists CKD HGB USE SMARTSET 15612 01/09/202301/09, 12/06/2021, 05/02/2021, Additional history exists DTaP,Tdap,and Td Vaccines (2 - Td or Tdap) 01/10/2025 01/10/2015 Pneumococcal Vaccine: 65+ Years Completed 07/13/2015, 06/08/2013 GARDASIL-HPV IMMUNIZATION SERIES Aged Out No longer eligible based on patient's age to complete this topic Hepatitis B Aged Out No longer eligi ble based on patient's age to complete this topic MENINGOCOCCAL (MENACTRA/MENVEO) Aged Out No longer eligible based on patient's age to complete this topic documented as of this encounter Implants Not on filedocumented as of this encounter Visit Diagnoses Diagnosis 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, or unspecified documented in this encounter Advance Directives Documents on File Type Date Recorded Patient Vp Strategy Expl anation Advanced Directive Advanced Directive Advanced Directive Advanced Directive Advanced Directive Advanced Directive Advanced Directive Advanced Directive Advanced Directive Advanced Directive Advanced Directive Advanced Directive Advanced Directive Advanced Directive Advanced Directive Advanced Directive Advanced Directive Advanced Directive Advanced Directive Advanced Directive Advanced Directive Advanced Directive Advanced Directive Advanced Directive Advanced Directive Advanced Directive Advanced Directive Advanced Directive Advanced Directive Advanced Directive Advanced Directive Advanced Directive Advanced Directive Advanced Directive Advanced Directive Advanced Directive Advanced Directive Advanced Directive Advanced Directive Advanced Directive Advanced Directive Care Teams Catalyst Manufacturing Operator Relationship Specialty Start Date End Date William Joseph MD [address] [place] [address] PCP - General Internal Medicine 03/18/12 documented as of this encounter
--- OUTSIDE RECORDS SUMMARY | 2023-01-29 05:04 | External Medical Summary | Summary of Care ---
Author Name Unknown Organization [place] [address] Care Team Providers Care Envelope Adjuster Name Role Phone William Joseph MD Primary Care Provider + Reason for Visit * Reason Onset Date Comments Precert Approved 02/09/2022 Humira Encounter Details Date Type Department Care Team Description 02/09/2022 Telephone Rheumatology [facility], [place] [address] [place] [address] Carlso Alberto Matthews MD [address] [place] [address] Precert Approved ( Humira) Allergies No known active allergiesdocumented as of this encounter (statuses as of 02/19/2022) Medications Medication Sig Dispensed Refills Start Date End Date Status Cholecalciferol (VITAMIN D3) 50 MCG (1999 UT) Tablet Take 1,000 Units by mouth. Every 2 - 3 days 0 Active predniSONE 5 MG Oral Tablet (Deltasone)Indication s:H/O rheumatoid arthritis Take 1 Tab by mouth daily. 30 Tab 5 02/13/2021 Active Benzonatate 100 MG Oral Capsule (Tessalon Perles)Indications:Co ugh Take by mouth 1 Capsule 2 times a day as needed for Cough. Do not cut, crush, or chew. 50 Capsule 2 09/27/2021 Active amLODIPine Besy-Benazepril HCl 2.5-10 MG Oral Capsule (Lotrel)Indications:B enign hypertension 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) Take by mouth 1 Capsule in the morning. 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 1 injection. 2 Each 6 02/19/2022 Active documented as of this encounter (statuses as of 02/19/2022) Active Problems Problem Noted Date MGUS (monoclonal [...] as of this encounter (statuses as of 02/19/2022) Resolved Problems Problem Noted Date Resolved Date Secondary hyperparathyroidism 08/10/2019 History of rheumatoid arthritis 09/04/2017 08/20/2018 History of rheumatoid arthritis 01/06/2016 07/27/2016 Kidney disease, chronic, stage III (GFR 30-59 ml /min) 08/09/2014 07/30/2017 Overview: Per CKD protocol #1 HTN, goal below 140/90 8 Kidney disease, chronic, stage III (GFR 30-59 ml /min) 03/24/2012 documented as of this encounter (statuses as of 02/19/2022) Immunizations Name Administration Dates Next Due COVID-19 [...] Used Alcohol Use Standard Drinks/Week Comments Yes [id number] (1 standard drink = 0.6 oz pure [...] Encounter - Carlos Alberto Matthews MD - 02/19/2022 8:42 AM EDT signed * Telephone Encounter - Bibiana Carr LPN - 02/19/2022 8:39 AM EDT Approved/Denied: Approved/ [place] [id number] Drug Name: Humira Pen 40 MG/0.8ML Subcutaneous Pen-injector Kit (Adalimumab) Did you receive insurance information from outside the chart? No, received insurance information within the chart Valid auth start date: 02/16/22 Valid auth end date: 02/16/23 Rx Insurance Info: [facility] * Telephone Encounter - Bibiana Carr LPN - 02/12/2022 11:34 AM EDT Please prior auth Humira per Dr. Matthews's note below. Thank you! * Telephone Encounter - Carlos Alberto Matthews MD - 02/09/2022 4:36 PM EDT Can we look into coverage for Humira for his rheumatoid arthritis. Failed methotrexate and steroids. documented in this encounter Plan of Treatment Upcoming Encounters Date Type Specialty Care Team Description 05/09/2022 Office Visit Rheumatology Carlos Alberto Matthews MD [facility] [place] [address] 06/01/2022 Office Visit Internal Medicine William Joseph MD [address] [facility] [address] [place] [address] Health Maintenance Due Date Last Done Comments Hepatitis C Screening 1963 FOBT ANNUALLY,AGES 18-90 03/22/2017 03/22/2016, 09/26 Zoster Vaccines (3 of 3) 12/26/2020 10/31/2020, 12/25 Depression Screening, Annual for Pts 12 and Over 02/17/2021 02/18/2020 COVID-19 Vaccine (4 - Booster for Pfizer series) 04/26/2021 03/01/2021, 08/03/2020, 07/13/2020 Influenza Vaccine (FLU shot) (#1) 2022 05/02/2021, 03/15/2020, 03/24/2019, Additional history exists Alb / Creat Ratio 03/16/2022 03/16/2021, , 01/01/2014 CKD PHOS USE SMARTSET 36669 03/16/202202/25, 03/15/2020, 10/22/2018, Additional history exists GFR - Renal Function 06/08/2022 12/06/2021, 03/16/2021, 03/16/2021, Additional history exists CKD HGB USE SMARTSET 35267 01/09/202301/09, 12/06/2021, 05/02/2021, Additional history exists DTaP,Tdap,and [...] sites with positive rheumatoid factor (HCC)- Primary documented in this encounter Advance Directives Documents on File Type Date Recorded 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
--- OUTSIDE RECORDS SUMMARY | 2023-01-29 05:04 | External Medical Summary | Summary of Care ---
Author Name Unknown Organization [place] [address] Care Team Providers Care Manager Manufacturing Name Role Phone William Joseph MD Primary Care Provider + Reason for Visit * Reason Onset Date Comments Precert Approved 02/09/2022 Humira Encounter Details Date Type Department Care Team Description 02/09/2022 Telephone Rheumatology [facility], [place] [address] [place] [address] Carlos Alberto Matthews MD [address] [place] [address] Precert Approved ( Humira) Allergies No known active allergiesdocumented as of this encounter (statuses as of 03/08/2022) Medications Medication Sig Dispensed Refills Start Date [...] as of this encounter (statuses as of 03/08/2022) Active Problems Problem Noted Date MGUS (monoclonal [...] as of this encounter (statuses as of 03/08/2022) Resolved Problems Problem Noted Date Resolved Date Secondary hyperparathyroidism 08/10/2019 History of rheumatoid arthritis 09/04/2017 08/20/2018 History of rheumatoid arthritis 01/06/2016 07/27/2016 Kidney disease, chronic, stage III (GFR 30-59 ml /min) 08/09/2014 07/30/2017 Overview: Per CKD protocol #1 HTN, goal below 140/90 8 Kidney disease, chronic, stage III (GFR 30-59 ml /min) 03/24/2012 documented as of this encounter (statuses as of 03/08/2022) Immunizations Name Administration Dates Next Due COVID-19 [...] Used Alcohol Use Standard Drinks/Week Comments Yes [id number] (1 standard drink = 0.6 oz pure [...] 02/19/2022 8:39 AM EDT Approved/Denied: Approved/ [place] [id number] Drug Name: Humira Pen 40 MG/0.8ML Subcutaneous [...] Office Visit Rheumatology Carlos Alberto Matthews MD [facility] [place] [place] [address] 06/01/2022 Office Visit Internal Medicine William Joseph MD [address] [facility] [address] [place] [facility] [address] Health Maintenance Due Date Last Done Comments [...] 03/16/2021, , 01/01/2014 CKD PHOS USE SMARTSET 20046 03/16/202202/25, 03/15/2020, 10/22/2018, Additional history exists GFR - Renal Function 06/08/2022 12/06/2021, 03/16/2021, 03/16/2021, Additional history exists CKD HGB USE SMARTSET 87791 01/09/202301/09, 12/06/2021, 05/02/2021, Additional history exists DTaP,Tdap,and [...] Documents on File Type Date Recorded 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
--- OUTSIDE RECORDS SUMMARY | 2023-01-29 05:04 | External Medical Summary | Summary of Care ---
Author Name Unknown Organization [place] [address] Care Team Providers Care Type Copy Examiner Name Role Phone William Joseph MD Primary Care Provider + Reason for Referral * (Within 10 days (routine)) - Pending Review Specialty Diagnoses / Procedures Referred By Suha mitchell Referred To Contact Radiology Diagnoses Thyroid nodule Procedures US HEAD AND NECK William Joseph MD [address] [facility] [address] Referral ID Status Reason Start Date Expiration Date V isits Requested Visits Authorized Pending Review 11/10/2021 999 [id number] Reason for Visit * Reason Comments Re-Check Pt c/o 6 month reche ck. Having right pain. 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)*; Rheumatoid arthritis involving multiple sites with positive rheumatoid factor (HCC); Thyroid nodule; Thoracic aortic aneurysm without rupture (HCC); Bronchiectasis without complication (HCC); Chronic pain of right knee; Encounter for screening fecal occult blood testing; Pernicious anemia; MGUS (monoclonal gammopathy of unknown significance); Mixed hyperlipidemia Allergies No known active allergiesdocumented as of this encounter (statuses as of 11/10/2021) Medications Medication Sig Dispensed Refills Start Date End Date Status Cholecalciferol (VITAMIN D3) 50 MCG (1999 UT) Tablet Take 1,000 Units by mouth. Every 2 - 3 days 0 Active predniSONE 5 MG Oral Tablet (Deltasone)Indication s:H/O rheumatoid arthritis Take 1 Tab by mouth daily. 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 30 Tablet 5 04/13/2021 Active Benzonatate 100 MG Oral Capsule (Tessalon Perles)Indications:Co ugh Take by mouth 1 Capsule 2 times a day as needed for Cough. Do not cut, crush, or chew. 50 Capsule 2 09/27/2021 Active Fluticasone Propionate HFA 44 MCG/ACT Inhalation Aerosol (Flovent HFA)Indications:Bronc hiectasis (HCC) Inhale by mouth 1 Puff in the morning AND 1 Puff before bedtime. 10.6 g 5 09/27/2021 Active amLODIPine Besy-Benazepril HCl 2.5-10 MG Oral Capsule (Lotrel)Indications:B enign hypertension 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) Take by mouth 1 Capsule in the morning. 30 Capsule 5 09/27/2021 Active Cyanocobalamin 1000 MCG/ML Injection Solution (Cyanocobalamin)Indic ations:Pernicious anemia inject 1ml into a large muscle every month 1 mL 4 09/28/2021 Active documented as of this encounter (statuses as of 11/10/2021) Active Problems Problem Noted Date MGUS (monoclonal [...] as of this encounter (statuses as of 11/10/2021) Resolved Problems Problem Noted Date Resolved Date Secondary hyperparathyroidism 08/10/2019 History of rheumatoid arthritis 09/04/2017 08/20/2018 History of rheumatoid arthritis 01/06/2016 07/27/2016 Kidney disease, chronic, stage III (GFR 30-59 ml /min) 08/09/2014 07/30/2017 Overview: Per CKD protocol #1 HTN, goal below 140/90 8 Kidney disease, chronic, stage III (GFR 30-59 ml /min) 03/24/2012 documented as of this encounter (statuses as of 11/10/2021) Immunizations Name Administration Dates Next Due COVID-19 mRNA, LNP-s, No Pre serve, 2-Dose Series (Fitwall) 03/01/2021,08/03/2020,07/13/2020 Pneumococcal Conjugate Vacc, 13 Valent (Prevnar) [...] Used Alcohol Use Standard Drinks/Week Comments Yes [id number] (1 standard drink = 0.6 oz pure [...] Sign Reading Time Taken Comments Blood Pressure 146/86 11/10/2021 2:00 PM EDT Pulse 72 11/10/2021 1:55 PM EDT Temperature 37.3 C (99.2 F) 11/10/2021 1:55 PM ED T Respiratory Rate - - Oxygen Saturation 95% 11/10/2021 1:55 PM EDT Inhaled Oxygen Concentration - - Weight 77.3 kg (170 lb 6.4 oz) 11/10/2021 1:55 P M EDT Height 167.6 cm (5' 6") 11/10/2021 1:55 PM EDT Body Mass Index 27.5 11/10/2021 1:55 PM EDT documented in this encounter Progress Notes * William Joseph MD - 11/10/2021 2:25 PM EDT Chief Complaint Patient presents with Re-Check Pt c/o 6 month recheck. Having right pain. Bunion on left foot SUBJECTIVE: Ignacio Garcia is a 76 year old male with PMH as below who presents for f.u HTn, CKD III, bronchiectasis, MGUS, RA, lipids. No, cp, sob, lloyd. BP well controlled at home Taking bp meds. He is seeing rheum for RA, feels may need med soon as having issues with pain in joints and right knee - has received injection, helped a little. No N/V/D Mood is good, some stress with recent cancer dx, but handling ok. Has had the knee pain 1 year, intermittent swelling Patient Active Problem List Diagnosis Code Encounter for therapeutic drug monitoring Z51.81 Pernicious anemia D51.0 Bronchiectasis ([facility]) J47.9 Thoracic aortic aneurysm ([facility]) I71.2 Benign hypertension with CKD (chronic kidney disease) stage III ([facility]) I12.9, N18.30 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 Bunion, left foot M21.612 Primary osteoarthritis of right hip M16.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 ([facility]) M05.79 Mixed hyperlipidemia E78.2 Thyroid nodule 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 Current Outpatient Medications Medication Sig Dispense Refill Cholecalciferol (VITAMIN D3) 50 MCG (1999 UT) Tablet Take 1,000 Units by mouth. Every 2 - 3 days Benazepril HCl 5 MG Oral Tablet (Lotensin) Take 1 Tablet by mouth daily. 30 Tablet 5 Fluticasone Propionate HFA 44 MCG/ACT Inhalation Aerosol (Flovent HFA) Inhale by mouth 1 Puff in the morning AND 1 Puff before bedtime. 10.6 g 5 amLODIPine Besy-Benazepril HCl 2.5-10 MG Oral Capsule (Lotrel) Take by mouth 1 Capsule in the morning. 30 Capsule 5 Cyanocobalamin 1000 MCG/ML Injection Solution (Cyanocobalamin) inject 1ml into a large muscle every month 1 mL 4 predniSONE 5 MG Oral Tablet (Deltasone) Take 1 Tab by mouth daily. 30 Tab 5 Benzonatate 100 MG Oral Capsule (Tessalon Perles) Take by mouth 1 Capsule 2 times a day as needed for Cough. Do not cut, crush, or chew. 50 Capsule 2 No current facility-administered medications for this visit. Review of patient's allergies indicates: No Known Allergies Health Maintenance Due Topic Date Due FOBT ANNUALLY,AGES 18-90 03/22/2017 Zoster Vaccines (3 of 3) 12/26/2020 Depression Screening, Annual for Pts 12 and Over 02/17/2021 COVID-19 Vaccine (4 - Booster for Pfizer series) 07/02/2021 CKD GFR USE SMARTSET 40356 09/14/2021 ROS: CONSTITUTIONAL: No change in weight, No weakness and No fevers, sweats, or chills EYE: No recent significant change in vision, No eye pain, redness, discharge and No diplopia EARS: No ear pain, No drainage, No tinnitus or vertigo and No recent change in hearing MOUTH: No bleeding gums, No thrush or No sore throat PULMONARY: No wheezing, No rales, No shortness of breath and No recent change in breathing CARDIOVASCULAR: No chest pain, No shortness of breath, No dyspnea on exertion, No orthopnea, No paroxysmal nocturnal dyspnea, No edema, No palpitations and No syncope ALL OTHER SYSTEMS NEGATIVE I reviewed social, PMH, PSH, and family history and updated where needed. 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 Employer: [employer] Tobacco Use Smoking status: Former Smoker Packs/day: 2.00 Years: 35.00 Pack years: 70.00 Types: Cigarettes Quit date: 06/25/1990 Years since quittin.4 Smokeless tobacco: Never Used Substance and Sexual Activity Alcohol use: Yes [...] Mother Hypertension Mother OBJECTIVE: PHYSICAL EXAM: BP 146/86 | Pulse 72 | Temp 37.3 C (99.2 F) (Tympanic) | Ht 1.676 m (5' 6") | Wt 77.3 kg (170 lb 6.4 oz) | SpO2 95% | BMI 27.50 kg/m | BSA 1.9 m General: alert, healthy and no distress Head: Normocephalic, No masses, lesions or abnormalities Eye Exam: conjunctiva are pink and non-injected, sclera clear Ears: External ears normal, Canals clear, TM's Normal Heart: regular rate & rhythm, no murmurs, no gallops, PMI non-displaced, S-1 normal and S-2 normal Lungs: normal respiratory rate and rhythm, lungs clear to auscultation Extremities: no clubbing, no cyanosis, +right knee effusion Neuro Exam: alert with fluent speech, gait normal Psych: normal affect, no flight of ideas or tangential thought, good eye contact, no pressured speech I reviewed last, gfr, lipid, vit b12, lft 08/14/21 rheum: discussed aspiration and injection of the right knee, he agreed and procedure note is below. Did aspirate inflammatory fluid. Discussed potential treatment options including Plaquenil versus TNF inhibitors. Will update labs. He will update me and let me know which treatment he wants to pursue ASSESSMENT: I12.9,N18.30 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) (primary encounter diagnosis) M05.79 Rheumatoid arthritis involving multiple sites with positive rheumatoid factor (HCC) E04.1 Thyroid nodule I71.2 Thoracic aortic aneurysm without rupture (HCC) J47.9 Bronchiectasis without complication ([facility]) M25.561,G89.29 Chronic pain of right knee Z12.11 Encounter for screening fecal occult blood testing D51.0 Pernicious anemia D47.2 MGUS (monoclonal gammopathy of unknown significance) E78.2 Mixed hyperlipidemia PLAN: 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) (Primary) - COMPREHENSIVE METABOLIC PANEL - LIPID PANEL WITH DIRECT LDL IF TG IS HIGH Borderline here Ok at home bp check with cuff 2 weeks Cont norvasc, benazepril Rheumatoid arthritis involving multiple sites with positive rheumatoid factor (HCC) F/u rheum Discussed knee pain, he is messaging rheum for sooner visit May need additional med Thyroid nodule - US HEAD AND NECK; Future; Expected date: 11/10/2021 Thoracic aortic aneurysm without rupture (HCC) Defers further CT Bronchiectasis without complication (HCC) Stable, declines further ct Cont inhalers Chronic pain of right knee As above Encounter for screening fecal occult blood testing - FECAL OCCULT BLOOD, EIA; Future; Expected date: 11/10/2021 Pernicious anemia - VITAMIN B12 MGUS (monoclonal gammopathy of unknown significance) Await labs Sees heme Mixed hyperlipidemia Await labs Follow Up: Return in about 6 months (around 05/12/2022), or if symptoms worsen or fail to improve, for BP Check in 2 Weeks. | For: BP Check in 2 Weeks discussed covid booster William Joseph MD * Lisbeth Mcgrath LPN - 11/10/2021 1:54 PM EDT Chief Complaint Patient presents with Re-Check Pt c/o 6 month recheck. Having right pain. Bunion on left foot documented in this encounter Plan of Treatment Upcoming Encounters Date Type Specialty Care Team Description 11/24/2021 Nurse Only Ancillary Nurse, Int Med [address] [place] [address] 12/27/2021 Office Visit Rheumatology Carlos Alberto Matthews MD [facility] [place] [address] 01/08/2022 Imaging Radiology 06/01/2022 Office Visit Internal Medicine William Joseph MD [address] [place] [address] Scheduled Orders Name Type Priority Associated Diagnoses Orde r Schedule COMPREHENSIVE METABOLIC PANEL Lab Routine 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) Ordered: 11/10/2021 LIPID PANEL WITH DIRECT LDL IF TG IS HIGH Lab Routine 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) Ordered: 11/10/2021 VITAMIN B12 Lab Routine Pernicious anemia Ordered: 11/10/2021 FECAL OCCULT BLOOD, EIA Lab Routine Encounter for screening fecal occult blood testing Expected: 11/10/2021 (Approximate), Expires: 11/10/2022 HEAD AND NECK Medical Imaging Routine Thyroid nodule Expected: 11/10/2021, Expires: 12/10/2022 Health Maintenance Due Date Last Done Comments FOBT ANNUALLY,AGES 18-90 03/22/2017 03/22/2016, 09/26 Zoster Vaccines (3 of 3) 12/26/2020 10/31/2020, 12/25 Depression Screening, Annual for Pts 12 and Over 02/17/2021 02/18/2020 COVID-19 Vaccine (4 - Booster for Pfizer series) 07/02/2021 03/01/2021, 08/03/2020, 07/13/2020 CKD GFR USE SMARTSET 99414 09/14/202103/16, 03/16/2021, 10/14/2020, Additional history exists BASIC METABOLIC PANEL (BMP) FOR HTN YEARLY 03/16/2022 03/16/2021, 03/16/2021, 10/14/2020, Additional history exists CKD PHOS USE SMARTSET 32917 03/16/202202/25, 03/15/2020, 10/22/2018, Additional history exists CKD HGB USE SMARTSET 15602 05/02/202205/02, 10/14/2020, 11/18/2019, Additional history exists DIABETES SCREEN EVERY 3 YRS-AGE 45 AND ABOVE 03/16/2024 03/16/2021, 03/16/2021, 10/14/2020, Additional history exists DTaP,Tdap,and Td Vaccines (2 - Td or Tdap) 01/10/2025 01/10/2015 Pneumococcal Vaccine: 65+ Years Completed 07/13/2015, 06/08/2013 Influenza Vaccine (FLU shot) Completed 11/2020, 03/15/2020, 03/24/2019, Additional history exists GARDASIL-HPV IMMUNIZATION SERIES Aged [...] stage I through stage IV, or unspecified Rheumatoid arthritis involving multiple sites with positive rheumatoid factor (HCC) Thyroid nodule Nontoxic uninodular goiter Thoracic aortic aneurysm without rupture (HCC) Thoracic aneurysm without mention of rupture Bronchiectasis without complication (HCC) Bronchiectasis without acute exacerbation Chronic pain of right knee Encounter for screening fecal occult blood testing Pernicious anemia MGUS (monoclonal gammopathy of unknown significance) Monoclonal paraproteinemia Mixed hyperlipidemia documented in this encounter Advance Directives Documents on File Type Date Recorded 

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
--- OUTSIDE RECORDS SUMMARY | 2023-01-29 05:04 | External Medical Summary | Summary of Care ---
Author Name Unknown Organization [place] [address] Care Team Providers Care Train Conductor Name Role Phone William Joseph MD Primary Care Provider + Reason for Visit * Reason Onset Date Comments Precert Approved 02/09/2022 Humira Encounter Details Date Type Department Care Team Description 02/09/2022 Telephone Rheumatology [facility] [place] [address] [place] [address] Carlos Alberto Matthews MD [address] [place] [address] Precert Approved ( Humira) Allergies No known active allergiesdocumented as of this encounter (statuses as of 05/30/2022) Medications Medication Sig Dispensed Refills Start Date End Date Status Cholecalciferol (VITAMIN D3) 50 MCG (1999) Tablet Take 1,000 Units by mouth. Every [...] MOUTH DAILY 90 Tablet 1 11/28/2021 Active predniSONE 5 MG Oral Tablet (Deltasone)Indica tions:H/O rheumatoid arthritis Take 1 Tab by mouth daily. 30 Tab 5 02/13/2021 2 Discontinued(Ref ill) amLODIPine Besy-Benazepril HCl 2.5-10 MG Oral Capsule (Lotrel)Indicatio ns: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) Take by mouth 1 Capsule in the morning. 30 Capsule 5 09/27/2021 2 Discontinued(Ref ill) Cyanocobalamin 1000 MCG/ML Injection Solution (Cyanocobalamin)I ndications:Pernic ious anemia inject 1ml into a large muscle every month 1 mL 4 09/28/2021 2 Discontinued(Ref ill) Humira Pen 40 MG/0.8ML Subcutaneous Pen-injector Kit (Adalimumab)Indic ations:Rheumatoid arthritis involving multiple sites with positive rheumatoid factor (HCC) Inject under the skin 40 mg every 14 days . 1 injection. 2 Each 6 02/19/2022 2 Discontinued documented as of this encounter (statuses as of 05/30/2022) Active Problems Problem Noted Date MGUS (monoclonal [...] as of this encounter (statuses as of 05/30/2022) Resolved Problems Problem Noted Date Resolved Date Secondary hyperparathyroidism 08/10/2019 History of rheumatoid arthritis 09/04/2017 08/20/2018 History of rheumatoid arthritis 01/06/2016 07/27/2016 Kidney disease, chronic, stage III (GFR 30-59 ml /min) 08/09/2014 07/30/2017 Overview: Per CKD protocol #1 HTN, goal below 140/90 8 Kidney disease, chronic, stage III (GFR 30-59 ml /min) 03/24/2012 documented as of this encounter (statuses as of 05/30/2022) Immunizations Name Administration Dates Next Due COVID-19 [...] 02/19/2022 8:39 AM EDT Approved/Denied: Approved/ [place] [id number] Drug Name: Humira Pen 40 MG/0.8ML Subcutaneous [...] Visit Internal Medicine William Joseph MD [address] [facility] [place] [address] 07/13/[address] MD [address] [place] [address] 08/22/2022 Office Visit Rheumatology Carlos Alberto Matthews MD [facility] [place] [address] Health Maintenance Due Date Last [...] 03/16/2021, , 01/01/2014 CKD PHOS USE SMARTSET 00778 03/16/202202/25, 03/15/2020, 10/22/2018, Additional history exists GFR - Renal Function 06/08/2022 12/06/2021, 03/16/2021, 03/16/2021, Additional history exists CKD HGB USE SMARTSET 88879 01/09/202301/09, 12/06/2021, 05/02/2021, Additional history exists DTaP,Tdap,and [...] factor (HCC)- Primary documented in this encounter Care Teams Train Conductor Relationship Specialty Start Date End Date William Joseph MD [address] [place] [address] [place] [address] PCP - General Internal Medicine 03/18/12 documented as of this encounter
--- OUTSIDE RECORDS SUMMARY | 2023-01-29 05:04 | External Medical Summary | Summary of Care ---
Author Name Unknown Organization [place] [address] Care Team Providers Care Assembling Machine Operator Name Role Phone William Chavez MD Primary Care Provider + Reason for Visit * Reason Onset Date Comments Medication Refill 05/10/2022 Encounter Details Date Type Department Care Team Description 05/10/2022 Refill General Internal Medicine [facility] [address] [facility] [place] [address] William Chavez MD [address] [place] [address] H/O rheumatoid arthritis Allergies No known active allergiesdocumented as of this encounter (statuses as of 05/10/2022) Medications Medication Sig Dispensed Refills Start Date [...] 14 days. 0.8 mL 6 05/09/2022 Active predniSONE 5 MG Oral Tablet (Deltasone)Indicat ions:H/O rheumatoid arthritis Take 1 Tablet (5 mg) by mouth in the morning. 30 Tablet 5 05/10/2022 Active predniSONE 5 MG Oral Tablet (Deltasone)Indicat ions:H/O rheumatoid arthritis Take 1 Tab by mouth daily. 30 Tab 5 02/13/2021 05/10/2022 Discontinued (Refill) documented as of this encounter (statuses as of 05/10/2022) Active Problems Problem Noted Date MGUS (monoclonal [...] as of this encounter (statuses as of 05/10/2022) Resolved Problems Problem Noted Date Resolved Date Secondary hyperparathyroidism 08/10/2019 History of rheumatoid arthritis 09/04/2017 08/20/2018 History of rheumatoid arthritis 01/06/2016 07/27/2016 Kidney disease, chronic, stage III (GFR 30-59 ml /min) 08/09/2014 07/30/2017 Overview: Per CKD protocol #1 HTN, goal below 140/90 8 Kidney disease, chronic, stage III (GFR 30-59 ml /min) 03/24/2012 documented as of this encounter (statuses as of 05/10/2022) Immunizations Name Administration Dates Next Due COVID-19 [...] Telephone Encounter - William Chavez MD - 05/10/2022 12:04 PM ESTSigned Prescriptions: Disp Refills predniSONE 5 MG Oral Tablet (Deltasone) 30 Tab*5 Sig: Take 1 Tablet (5 mg) by mouth in the morning. Authorizing Provider: WILLIAM CHAVEZ * Telephone Encounter - Keisha Payne LPN - 05/10/2022 11:51 AM ESTPending Prescriptions: Disp Refills predniSONE 5 MG Oral Tablet (Deltasone) 30 Tab*5 Sig: Take 1 Tablet (5 mg) by mouth in the morning. * Telephone Encounter - Keisha Payne LPN - 05/10/2022 11:51 AM EST Pending Prescriptions: Disp Refills predniSONE 5 MG Oral Tablet (Deltasone) 30 Tab*5 Sig: Take 1 Tablet (5 mg) by mouth in the morning. Last Visit: 11/10/2021 (in office), Visit date not found (telemedicine) Next Visit: 06/01/2022 Last date the medication was ordered: 02/13/21 Patient Active Problem List Diagnosis Code Encounter [...] 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 Labs: Lab Results Component Value Date/Time CREATININE - [facility] 1.3 (H) 05/04/2016 12:09 PM CREATININE, RANDOM URINE - [facility] 94 08/03/2016 01:51 PM CREATININE-OUTSIDE LAB 1.19 12/06/2021 12:00 AM Lab Results Component Value Date/Time POTASSIUM - [facility] 4.6 05/04/2016 12:09 PM [...] Results Component Value Date/Time ALT - [facility] 10 05/04/2016 12:09 PM ALT-OUTSIDE LAB 21 12/06/2021 12:00 AM Hemoglobin AIC Results: No results found for: HEMOGLOBIN A1C documented in this encounter Plan of Treatment Upcoming Encounters Date Type Specialty Care Team Description 06/01/2022 Office Visit Internal Medicine DobersteinWilliam MD [address] [place] [address] 07/13/2022 Office Visit [address] Anthony [address] MD [address] [place] [address] 08/22/2022 Office Visit Rheumatology Carlos Alberto Matthews MD [address] [place] [address] Health Maintenance Due Date Last Done Comments [...] 03/16/2021, , 01/01/2014 CKD PHOS USE SMARTSET 25613 03/16/202202/25, 03/15/2020, 10/22/2018, Additional history exists GFR - Renal Function 06/08/2022 12/06/2021, 03/16/2021, 03/16/2021, Additional history exists CKD HGB USE SMARTSET 65350 01/09/202301/09, 12/06/2021, 05/02/2021, Additional history exists DTaP,Tdap,and [...] as of this encounter Visit Diagnoses Diagnosis H/O rheumatoid arthritis Personal history of arthritis documented in this encounter Care Teams Assembling Machine Operator Relationship Specialty Start Date End Date William Chavez MD [address] [place] [id number] PCP - General Internal Medicine 03/18/12 documented as of this encounter
--- OUTSIDE RECORDS SUMMARY | 2023-01-29 05:04 | External Medical Summary | Summary of Care ---
Author Name Unknown Organization [place] [address] Care Team Providers Care Wrapper Stemmer Hand Name Role Phone William Joseph MD Primary Care Provider + Reason for Visit * Reason Comments Rheum Follow Up recheck Encounter Details Date Type Department Care Team Description 12/27/2021 Office Visit Rheumatology [facility] [address] [place] [address] Harry Brooks MD [address] [place] [address] Rheumatoid arthritis involving multiple sites with positive rheumatoid factor (HCC)* Allergies No known active allergiesdocumented as of this encounter (statuses as of 12/27/2021) Medications Medication Sig Dispensed Refills Start Date [...] MOUTH DAILY 90 Tablet 1 11/28/2021 Active documented as of this encounter (statuses as of 12/27/2021) Active Problems Problem Noted Date MGUS (monoclonal [...] as of this encounter (statuses as of 12/27/2021) Resolved Problems Problem Noted Date Resolved Date Secondary hyperparathyroidism 08/10/2019 History of rheumatoid arthritis 09/04/2017 08/20/2018 History of rheumatoid arthritis 01/06/2016 07/27/2016 Kidney disease, chronic, stage III (GFR 30-59 ml /min) 08/09/2014 07/30/2017 Overview: Per CKD protocol #1 HTN, goal below 140/90 8 Kidney disease, chronic, stage III (GFR 30-59 ml /min) 03/24/2012 documented as of this encounter (statuses as of 12/27/2021) Immunizations Name Administration Dates Next Due COVID-19 mRNA, LNP-s, No Pre serve, 2-Dose Series (FLX Micro) 03/01/2021,08/03/2020,07/13/2020 Pneumococcal Conjugate Vacc, 13 Valent (Prevnar) [...] Used Alcohol Use Standard Drinks/Week Comments Yes [id number] (1 standard drink = 0.6 oz pure [...] Sign Reading Time Taken Comments Blood Pressure - - Pulse - - Temperature 36.5 C (97.7 F) 12/27/2021 1:02 PM ED T Respiratory Rate - - Oxygen Saturation - - Inhaled Oxygen Concentration - - Weight 75.3 kg (166 lb) 12/27/2021 1:02 PM EDT Height - - Body Mass Index 26.79 11/10/2021 1:55 PM EDT documented in this encounter Progress Notes * Harry Brooks MD - 12/27/2021 2:15 PM EDT Progress Notes Today's Visit Note 12/27/2021 Harry Brooks MD Assessment Diagnosis Comment (M05.79) Rheumatoid arthritis involving multiple sites with positive rheumatoid factor (HCC) (primary encounter diagnosis) Comment he still has ongoing rheumatoid arthritis activity especially the knees. Will update the TBtest to get on biologic therapy. He defers a knee aspiration and injection today. Will update CBC with a peripheral smear. 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 Plan 1. Blood work ordered and slips given to him 2. to start biologic DMARD therapy once TB testing is back 3. will have hematology review blood test results as well 4. return to clinic in 3-4 months or sooner pending course History "Mr. Garcia is a 76 year old man last seen in Rheumatology today (12-27-21). He has h/o Rheumatoid arthritis involving multiple sites with positive rheumatoid factor (HCC), Mixed hyperlipidemia, Benignhypertension 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), Bronchiectasis (HCC), Thyroid nodule, MGUS (monoclonal gammopathy of unknown significance), Pernicious anemia, and Bunion, left foot." Temporary History The injection to his right knee has really helped. He reports a flare in his left knee starting this morning. Has pain and swelling. Does not want an aspiration or injection just at this point. He isconcerned about his blood work from last month that showed some elevated neutrophils. This is the 1st time this is been noted on CBC with diff. does have MGUS and follows with Hematology. He has noted some increasing cough over the last several weeks. No recent flares of his arthritis outside of the knees. He does need to repeat the TB test so we can look into biologic coverage. The last TB test was indeterminate. Reviewed x-ray imaging with him as well. Right knee shows [id number] arthritis in the medial aspect. Has moderate medial arthritis left knee. Also reviewed hand x-rays with severearthritis of the 1st CMC joints along with arthritis in the wrists and erosive diseases of both hands. Permanent History diagnosed with RA in 2001 but now burnt out, off DMARD therapy arava - GI upset MTX - fatigue, GI upset Condition Summary Date Description 11/29/2021 RHEUMATOLOGY [facility] x 2 (08/14/21, 11/29/21). Most recent with Dr. Brooks (Rheumatoid arthritis involving multiple sites with positive rheumatoid factor (HCC)) 11/10/2021 [facility] Joseph (Benign hypertension with CKD (chronickidney disease) stage III ([facility])) Review of Systems (ROS) ROS Symptoms General Normal HEENT normal MS/Neuro joint pain and swelling Skin normal Cardiopulmonary cough Gastrointestinal normal Genitourinary normal Medications Rheumatology Meds Other Meds PREDNISONE 5 [...] 1ml into a large muscle every month VITAMIN D3 50 MCG (2000 UT) OR TABS Take 1,000 Units by mouth. 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 Warmth on exam of left knee. Discomfort left knee greater than right. No synovitis of the hands. Squaring of both thumb bases noted. Neck supple, no masses, JVD, or thyromegaly Lymph Nodes no lymphadenopathy Heart regular rate and rhythm, no murmurs or rubs Lungs Coarse breath sounds with some rhonchi at the bases no wheezing Abdomen soft, normal bowel sounds, no masses or organomegaly Monitoring Labs Measure Today Previous eGFR mL/min/1.73 M2 59 04/07/2021 Prot/Creat Ratio mg/G 195 04/07/2021 Outcome Measures Measure Today Previous MDHAQ Pain Fatigue Stiffness Patient Global 8 12/27/2021 8 11/29/2021 Rapid3 Tender Score 2 12/27/2021 1 11/29/2021 Swollen Score 2 12/27/2021 1 11/29/2021 Physician Global Score 3 12/27/2021 3 11/29/2021 Patient Global Score 8 12/27/2021 8 11/29/2021 CDAI 15 12/27/2021 13 11/29/2021 Care Gaps As Of 12/26/2021 Physician open RA on DMARD RA, Not on DMARD open Active RA on DMARD (CDAI > 10) Active RA, Not on DMARD (CDAI > 10) open RA at Low Disease Activity Moderate Disease Activity: CDAI 11 to 22 closed Serial CDAI (>50% of visits) CDAI Historically Completed (>= 50% of Visits) closed RA with MDHAQ MDHAQ Completed N/A Biologic De-escalation Candidate Does Not Qualify for Biological De-escalation Nurse N/A TB Testing if on Biologic TB Testing Not Applicable N/A Flu Vaccine Flu Vaccine Not Applicable open Pneumococcal Vaccine 13 or 23 Pneumococcal Vaccine Needed open Zoster Vaccine (Shingrix) Needs Second Shingrix Vaccine Treat To Target - Provider Goal Measure Current Target CDAI 15 10 Opportunity The patient has 2 or more CDAI values in the last 14 months and the two most recent are greater than the target value. How would you like to change treatment? Decision Escalate Signature HARRY BROOKS * Haryr Brooks MD - 12/27/2021 1:10 PM EDT . documented in this encounter Nursing Notes * Fani Hickman LPN - 12/27/2021 1:02 PM EDT Chief Complaint Patient presents with Rheum Follow Up recheck documented in this encounter Plan of Treatment Upcoming Encounters Date Type Specialty Care Team Description 01/08/2022 Imaging Radiology 05/09/2022 Office Visit Rheumatology Harry Brooks MD [address] [facility] [place] [address] 06/01/2022 Office Visit Internal Medicine William Joseph MD [address] [facility] [place] [address] Scheduled Orders Name Type Priority Associated Diagnoses Orde r Schedule QUANTIFERON TB GOLD PLUS Lab Routine Rheumatoid arthritis involving multiple sites with positive rheumatoid factor (HCC) Ordered: 12/27/2021 CBC WITH WBC DIFFERENTIAL Lab Routine Rheumatoid arthritis involving multiple sites with positive rheumatoid factor (HCC) Ordered: 12/27/2021 BLOOD SMEAR INTERPRETATION BY PATHOLOGIST Lab Routine Rheumatoid arthritis involving multiple sites with positive rheumatoid factor (HCC) Ordered: 12/27/2021 Health Maintenance Due Date Last Done Comments Hepatitis C Screening 1963 FOBT ANNUALLY,AGES 18-90 03/22/2017 03/22/2016, 09/26 Zoster Vaccines (3 of 3) 12/26/2020 10/31/2020, 12/25 Depression Screening, Annual for Pts 12 and Over 02/17/2021 02/18/2020 COVID-19 Vaccine (4 - Booster for Pfizer series) 07/02/2021 03/01/2021, 08/03/2020, 07/13/2020 Influenza Vaccine (FLU shot) (#1) 2022 05/02/2021, 03/15/2020, 03/24/2019, Additional history exists CKD PHOS USE SMARTSET 01358 03/16/202202/25, 03/15/2020, 10/22/2018, Additional history exists GFR - Renal Function 06/08/2022 12/06/2021, 03/16/2021, 03/16/2021, Additional history exists CKD HGB USE SMARTSET 79543 12/06/202212/06, 05/02/2021, 10/14/2020, Additional history exists DTaP,Tdap,and Td Vaccines [...] Documents on File Type Date Recorded Patient Fractionating Still Operator Expl anation Advanced Directive Advanced Directive Advanced [...] Directive Advanced Directive Advanced Directive Care Teams Wrapper Stemmer Hand Relationship Specialty Start Date End Date William Joseph MD [address] [place] [address] PCP - General Internal Medicine 03/18/12 documented as of this encounter
--- OUTSIDE RECORDS SUMMARY | 2023-01-29 05:04 | External Medical Summary | Summary of Care ---
Author Name Unknown Organization [place] [address] Care Team Providers Care Nuclear Medicine Specialist Name Role Phone William Joseph MD Primary Care Provider + Reason for Visit * Reason Comments Rheum Follow Up recheck for " R knee swelling/pain" Encounter Details Date Type Department Care Team Description 11/29/2021 Office Visit Rheumatology [facility] [address] [place] [address] [place] [address] [place] [address] [place] [address] Rheumatoid arthritis involving multiple sites with positive rheumatoid factor (HCC)*; Bronchiectasis without complication (HCC) Allergies No known active allergiesdocumented as of this encounter (statuses as of 11/29/2021) Medications Medication Sig Dispensed Refills Start Date [...] Puff before bedtime. 10.6 g 5 09/27/2021 Discontinued Hospital, Clinic, or Other Facility Administered Medication Ordered Dose Route Frequency Start Date End Date Status Lidocaine (PF) 2 % (PF) inj 40 mgIndications:Rheumatoid arthritis involving multiple sites with positive rheumatoid factor (HCC) 40 mg IX ONCE 11/29/2021 11/29/2021 Ended Triamcinolone Acetonide (Kenalog) 40 MG/ML inj 80 mgIndications:Rheumatoid arthritis involving multiple sites with positive rheumatoid factor (HCC) 80 mg IX ONCE 11/29/2021 11/29/2021 Ended documented as of this encounter (statuses as of 11/29/2021) Active Problems Problem Noted Date MGUS (monoclonal [...] as of this encounter (statuses as of 11/29/2021) Resolved Problems Problem Noted Date Resolved Date Secondary hyperparathyroidism 08/10/2019 History of rheumatoid arthritis 09/04/2017 08/20/2018 History of rheumatoid arthritis 01/06/2016 07/27/2016 Kidney disease, chronic, stage III (GFR 30-59 ml /min) 08/09/2014 07/30/2017 Overview: Per CKD protocol #1 HTN, goal below 140/90 8 Kidney disease, chronic, stage III (GFR 30-59 ml /min) 03/24/2012 documented as of this encounter (statuses as of 11/29/2021) Immunizations Name Administration Dates Next Due COVID-19 [...] Used Alcohol Use Standard Drinks/Week Comments Yes [id number] (1 standard drink = 0.6 oz pure [...] Pressure - - Pulse - - Temperature 37 C (98.6 F) 11/29/2021 10:49 AM EDT Respiratory Rate - - Oxygen Saturation - - Inhaled Oxygen Concentration - - Weight 75.8 kg (167 lb) 11/29/2021 10:49 AM EDT Height - - Body Mass Index 26.95 11/10/2021 1:55 PM EDT documented in this encounter Patient Instructions * Patient Instructions* Harry Brooks MD - 11/29/2021 11:11 AM EDT Sulfasalazine (Azulfidine) Sulfasalazine is a medication used to treat pain and swelling in rheumatoid arthritis, ankylosing spondylitis, psoriatic arthritis. It may also prevent damage to joints and may reduce the risk of moth exterminator loss of function DOSING Sulfasalazine is typically started at a lower dose 500-1000 milligram daily and may be increased toa higher dose. It should be taken with food and a full glass of water to prevent stomach upset. It usually takes between 1 and 3 months to notice any improvement in symptoms after starting the medication. SIDE EFFECTS In general, most patients can take sulfasalazine with few side effects. The most common side effects are nausea and abdominal discomfort. Less common side effects include skin rash, headache, and a higher risk for infections. Even less commonly, mouth sores, itching. This medicine can occasionally affect the liver. Sulfasalazine also increases the risk of reduced blood counts in people born without an enzyme called Zhuyjdf-8-jecazdbjw dehydrogenase. Blood tests will be done to monitor for bloodcounts and liver problems. This medication may make you more sensitive to the sun. [place] colored urine and even orange skin can occur. It is usually harmless and goes away after medication is stopped POINTS TO REMEMBER Tell your doctor if you have ever had any unusual or allergic reaction to any other sulfa medicinesas well as medicines that are chemically related to sulfa drugs. Use sunscreen (SPF 15 or higher) when outdoors and avoid prolonged exposure to sunlight, tanning booths, and sunlamps to avoid burning or skin damage. : Sulfasalazine treatment is generally considered to be safe during , but usage should be discussed with your physician if you are planning to become . This medication should not be taken by mothers who are . In men, sulfasalazine may lower sperm count, although this should improve after stopping the medication. Vaccination: Live vaccinations (including live influenza and shingles vaccine) should be avoided while taking this medication. Be sure to discuss with your doctor before receiving any vaccines. We generally suggest that patients receive a yearly injectable flu (and H1N1) vaccine. Pneumonia vaccine is recommended twice (5 years apart). Surgery: Sulfasalazine may be temporarily stopped at least 1 week before and 2 week after surgery. Therefore, please talk with your Rheumatology doctor or provider before you have surgery. Infection: In some cases, sulfasalazine may reduce the number of disease- fighting white blood cellsin the body, leading to a higher risk for infections. Drug Interactions: Be sure to tell your doctor about all of the medications you are taking, which may include qphg-ouc-srqudcu drugs and natural remedies. Medications that may interfere with Sulfasalazine include warfarin (Coumadin), cyclosporine, digoxin. Sulfasalazine increases the risk for liver injury if given with isoniazid (INH) for tuberculosis. It may increase the risk for low blood sugar in patients takingcertain diabetes drugs (sulfonylureas such as glimepiride (Amaryl), glyburide (Diabeta, Micronase, Glynase), glipizide (Glucotrol)). Adopted from [employer] Patient Education Resources Reviewed 2010 by the [facility] Department of Rheumatology Best Practice Committee documented in this encounter Progress Notes * Harry Brooks MD - 11/29/2021 12:06 PM EDT Progress Notes Today's Visit Note 11/29/2021 Harry Brooks MD Assessment Diagnosis Comment (M05.79) Rheumatoid arthritis involving multiple sites with positive rheumatoid factor (HCC) (primary encounter diagnosis) (J47.9) Bronchiectasis without complication (HCC) Comment he has active ongoing rheumatoid arthritis of the right knee. Discussed aspiration and injection, he agreed and procedure note is listed separately. At this point needs to get back on a DMARDagent. Discussed sulfasalazine. Need update labs. Plan 1. Some additional labs ordered and slips given to him 2. knee and hand x-rays ordered 3. see procedure note listed separately 4. day patient information on sulfasalazine and likely will start soon 5. rtc in December as scheduled History "Mr. Garcia is a 76 year old man last seen in Rheumatology today (11-29-21). He has h/o Rheumatoid arthritis involving multiple sites with positive rheumatoid factor (HCC), Mixed hyperlipidemia, Benignhypertension 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), Bronchiectasis (HCC), Thyroid nodule, MGUS (monoclonal gammopathy of unknown significance), Pernicious anemia, and Bunion, left foot." Temporary History he contacted me to be seen because of ongoing right knee pain and swelling. last aspiration and injection was July 2021. it is really uncomfortable at this point. hard to walk, go up and down steps.He was prescribed xeljanz but never took it. no other biologics. he is wondering about a newer med.has some hand issues. also wondering about imaging. no pain at rest with activity can be 8. not much am stiffness. Arava and methotrexate both in the past helped but caused significant GI symptoms. Has never taken sulfasalazine or Plaquenil. Did not get the labs ordered a few months ago but has theslips. He has had 3 COVID vaccines. Permanent History diagnosed with RA in 2001 but now burnt out, off DMARD therapy arava - GI upset MTX - fatigue, GI upset Condition Summary Date Description 11/10/2021 GEN INT MED [facility] POD3 with Dr. Joseph (Benign hypertension with CKD (chronickidney disease) stage III (HCC)) 08/14/2021 RHEUMATOLOGY [facility] with Dr. 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 Squaring of both thumb bases noted but no active synovitis of the hands noted. Neck supple, no masses, JVD, or thyromegaly Lymph Nodes no lymphadenopathy Heart regular rate and rhythm, no murmurs or rubs Lungs Diffuse rhonchi and wheezes noted in the lower lung abarca Abdomen soft, normal bowel sounds, no masses or organomegaly Monitoring Labs Measure Today Previous eGFR mL/min/1.73 M2 59 04/07/2021 Prot/Creat Ratio mg/G 195 04/07/2021 Outcome Measures Measure Today Previous MDHAQ Pain Fatigue Stiffness Patient Global 8 11/29/2021 2 08/14/2021 Rapid3 Tender Score 1 11/29/2021 5 08/14/2021 Swollen Score 1 11/29/2021 5 08/14/2021 Physician Global Score 3 11/29/2021 3 08/14/2021 Patient Global Score 8 11/29/2021 2 08/14/2021 CDAI 13 11/29/2021 15 08/14/2021 Care Gaps As Of 11/28/2021 Physician open RA on DMARD RA, Not [...] - Provider Goal Measure Current Target CDAI 13 10 Opportunity No changes required The patient does not have enough data on file or a decision was made at a prior visit. Signature HARRY BROOKS * Harry Brooks MD - 11/29/2021 10:53 AM EDT Associated Order(s): LG Joint Inj/Arthro: R knee Post-Procedure Diagnose(s): Rheumatoid arthritis involving multiple sites with positive rheumatoid factor (HCC) Ignacio Garcia is a 76 year old male patient. ICD-10-CM 1. Rheumatoid arthritis involving multiple sites with positive rheumatoid factor (HCC) M05.79 Past Medical History: Diagnosis Date Bronchiectasis (HCC) 12/08/2013 Encounter for long-term (current) use of other medications 07/27/2010 History of rheumatoid arthritis 01/06/2016 HTN, goal below 140/90 Pernicious anemia 08/24/2010 Thyroid nodule 08/10/2019 Temperature 37 C (98.6 F), temperature source Infrared , weight 75.8 kg (167 lb). LG Joint Inj/Arthro: R knee on 11/29/2021 11:09 AM Indications: pain and joint swelling Details: 20 G needle, medial approach Medications: (80mg of kenalog and 1ml of 2% lidocaine) Aspirate: 60 mL serous Outcome: tolerated well, no immediate complications Procedure, treatment alternatives, risks and benefits explained, specific risks discussed. Consent was given by the patient. Immediately prior to procedure a time out was called to verify the correctpatient, procedure, equipment, vp software support and site/side marked as required. Patient was prepped and draped in the usual sterile fashion. Harry Brooks MD 11/29/2021 documented in this encounter Nursing Notes * Fani Hickman LPN - 11/29/2021 10:49 AM EDT Chief Complaint Patient presents with Rheum Follow Up recheck for " R knee swelling/pain" documented in this encounter Plan of Treatment Upcoming Encounters Date Type Specialty Care Team Description 12/27/2021 Office Visit Rheumatology Harry Brooks MD [address] [facility] [place] [address] 01/08/2022 Imaging Radiology 06/01/2022 Office Visit Internal Medicine William Joseph MD [address] [place] [address] Scheduled Orders Name Type Priority Associated Diagnoses Orde r Schedule XR KNEE 3 VIEWS Medical Imaging Routine Rheumatoid arthritis involving multiple sites with positive rheumatoid factor (HCC) Ordered: 11/29/2021 XR HAND 3 OR MORE VIEWS Medical Imaging Routine Rheumatoid arthritis involving multiple sites with positive rheumatoid factor (HCC) Ordered: 11/29/2021 ERYTHROCYTE SEDIMENTATION RATE (ESR) Lab Routine Rheumatoid arthritis involving multiple sites with positive rheumatoid factor (HCC) Ordered: 11/29/2021 G-6-PD, RBC Lab Routine Rheumatoid arthritis involving multiple sites with positive rheumatoid factor (HCC) Ordered: 11/29/2021 CBC WITH WBC DIFFERENTIAL Lab Routine Rheumatoid arthritis involving multiple sites with positive rheumatoid factor (HCC) Ordered: 11/29/2021 Health Maintenance Due Date Last Done Comments FOBT ANNUALLY,AGES 18-90 03/22/2017 03/22/2016, 09/26 Zoster Vaccines (3 of 3) 12/26/2020 10/31/2020, 12/25 Depression Screening, Annual for Pts 12 and Over 02/17/2021 02/18/2020 COVID-19 Vaccine (4 - Booster for Pfizer series) 07/02/2021 03/01/2021, 08/03/2020, 07/13/2020 CKD GFR USE SMARTSET 10238 09/14/202103/16, 03/16/2021, 10/14/2020, Additional history exists Influenza Vaccine (FLU shot) (#1) 2022 05/02/2021, 03/15/2020, 03/24/2019, Additional history exists BASIC METABOLIC PANEL (BMP) FOR HTN YEARLY 03/16/2022 03/16/2021, 03/16/2021, 10/14/2020, Additional history exists CKD PHOS USE SMARTSET 96577 03/16/202202/25, 03/15/2020, 10/22/2018, Additional history exists CKD HGB USE SMARTSET 58956 05/02/202205/02, 10/14/2020, 11/18/2019, Additional history exists DIABETES [...] Procedure Name Priority Date/Time Associated Diagnosis Comments ID ARTHROCENTESIS ASPIR&/INJ MAJOR JT/BURSA W/O US Routine 11/29/2021 11:09 AM EDT Rheumatoid arthritis involving multiple sites with positive rheumatoid factor (HCC) documented in this encounter Results * ID ARTHROCENTESIS ASPIR&/INJ MAJOR JT/BURSA W/O US (11/29/2021 11:09 AM EDT) Narrative Harry Brooks MD - 11/29/2021 11:09 AM EDT Harry Brooks MD 11/29/2021 12:11 PM LG Joint Inj/Arthro: R knee on 11/29/2021 11:09 AM Indications: pain and joint swelling Details: 20 G needle, medial approach Medications: (80mg of kenalog and 1ml of 2% lidocaine) Aspirate: 60 mL serous Outcome: tolerated well, no immediate complications Procedure, treatment alternatives, risks and benefits explained, specific risks discussed. Consent was given by the patient. Immediately prior to procedure a time out was called to verify the correct patient, procedure, equipment, vp software support and site/side marked as required. Patient was prepped and draped in the usual sterile fashion. documented in this encounter Visit Diagnoses Diagnosis Rheumatoid arthritis involving multiple sites with positive rheumatoid factor (HCC)- Primary Bronchiectasis without complication (HCC) Bronchiectasis without acute exacerbation documented in this encounter Administered Medications Inactive Administered Medications - up to 3 most recent administrations Medication Order MAR Action Action Date Dose Rate Site Lidocaine (PF) 2 % (PF) inj 40 mg 40 mg, Intra-Articular, ONCE, On Sat11/29/21 at 1145, For 1 dose Given 11/29/2021 11:02 AM EDT 40 mg Knee Right Triamcinolone Acetonide (Kenalog) 40 MG/ML inj 80 mg 80 mg, Intra-Articular, ONCE, On Sat11/29/21 at 1145, For 1 dose Given 11/29/2021 11:02 AM EDT 80 mg Knee Right documented in this encounter Advance Directives Documents on File Type Date Recorded Patient Lean Manufacturing Leader Expl anation Advanced Directive Advanced Directive Advanced [...] Directive Advanced Directive Advanced Directive Care Teams Nuclear Medicine Specialist Relationship Specialty Start Date End Date William Joseph MD [address] [facility] [place] [address] PCP - General Internal Medicine 03/18/12 documented as of this encounter
--- OUTSIDE RECORDS SUMMARY | 2023-01-29 05:04 | External Medical Summary | Summary of Care ---
Author Name Unknown Organization [place] [address] Care Team Providers Care Evidence Specialist Name Role Phone William Joseph MD Primary Care Provider + Reason for Visit * Reason Onset Date Comments Precert Approved 05/30/2022 Humira Encounter Details Date Type Department Care Team Description 05/30/2022 Telephone Rheumatology [facility] [address] [place] [address] Carlos Alberto Matthews MD [address] [place] [address] Precert Approved (Humira ) Allergies No known active allergiesdocumented as of this encounter (statuses as of 06/07/2022) Medications Medication Sig Dispensed Refills Start Date [...] starter dose 0.8 mL 5 06/07/2022 Active Humira Pen 40 MG/0.4ML Subcutaneous Pen-injector Kit (Adalimumab) Inject 0.4 mL (40 mg) under the skin every 14 days. 0.8 mL 6 05/09/2022 06/07/2022 Discontinued (Refill) documented as of this encounter (statuses as of 06/07/2022) Active Problems Problem Noted Date MGUS (monoclonal [...] as of this encounter (statuses as of 06/07/2022) Resolved Problems Problem Noted Date Resolved Date Secondary hyperparathyroidism 08/10/2019 History of rheumatoid arthritis 09/04/2017 08/20/2018 History of rheumatoid arthritis 01/06/2016 07/27/2016 Kidney disease, chronic, stage III (GFR 30-59 ml /min) 08/09/2014 07/30/2017 Overview: Per CKD protocol #1 HTN, goal below 140/90 8 Kidney disease, chronic, stage III (GFR 30-59 ml /min) 03/24/2012 documented as of this encounter (statuses as of 06/07/2022) Immunizations Name Administration Dates Next Due COVID-19 [...] Encounter - Carlos Alberto Matthews MD - 06/07/2022 10:15 AM EST signed * Telephone Encounter - Aretha Ugarte LPN - 06/07/2022 8:48 AM EST HUMIRA 40MG EVERY OTHER WEEK Day Supply: 28 Valid auth start date: 05/27/22 Valid auth end date: 06/05/23 Rx Insurance Info: [employer] [facility] * Telephone Encounter - Bibiana Carr LPN - 05/30/2022 9:10 AM EST Please prior auth Humira through [employer] insurance. Rx must go through [facility]. Thank you! documented in this encounter Plan of Treatment Upcoming Encounters Date Type Specialty Care Team Description 07/13/2022 Office Visit [address] Anthony Way MD [address] [facility] [place] [address] 08/22/2022 Office Visit Rheumatology Carlos Alberto Matthews MD [address] [place] [address] 11/07/2022 Office Visit Internal Medicine William Joseph MD [address] [facility] [place] [address] Health Maintenance Due Date Last Done Comments [...] 03/16/2021, , 01/01/2014 CKD PHOS USE SMARTSET 63459 03/16/202202/25, 03/15/2020, 10/22/2018, Additional history exists GFR - Renal Function 06/08/2022 12/06/2021, 03/16/2021, 03/16/2021, Additional history exists CKD HGB USE SMARTSET 53725 01/09/202301/09, 12/06/2021, 05/02/2021, Additional history exists DTaP,Tdap,and [...] filedocumented as of this encounter Care Teams Evidence Specialist Relationship Specialty Start Date End Date William Joseph MD [address] [place] [address], [place] [address] PCP - General Internal Medicine 03/18/12 documented as of this encounter
--- OUTSIDE RECORDS SUMMARY | 2023-01-29 05:04 | External Medical Summary | Summary of Care ---
Author Name Unknown Organization [place] [address] Care Team Providers Care Shank Inspector Name Role Phone William Joseph MD Primary Care Provider + Reason for Visit * Reason Onset Date Comments Order Request 12/12/2021 Encounter Details Date Type Department Care Team Description 12/12/2021 Telephone Rheumatology [facility] [address] [facility] [place] [address] Carlos Alberto Matthews MD [address] [place] [address] Order Request Allergies No known active allergiesdocumented as of this encounter (statuses as of 12/12/2021) Medications Medication Sig Dispensed Refills Start Date [...] as of this encounter (statuses as of 12/12/2021) Active Problems Problem Noted Date MGUS (monoclonal [...] as of this encounter (statuses as of 12/12/2021) Resolved Problems Problem Noted Date Resolved Date Secondary hyperparathyroidism 08/10/2019 History of rheumatoid arthritis 09/04/2017 08/20/2018 History of rheumatoid arthritis 01/06/2016 07/27/2016 Kidney disease, chronic, stage III (GFR 30-59 ml /min) 08/09/2014 07/30/2017 Overview: Per CKD protocol #1 HTN, goal below 140/90 8 Kidney disease, chronic, stage III (GFR 30-59 ml /min) 03/24/2012 documented as of this encounter (statuses as of 12/12/2021) Immunizations Name Administration Dates Next Due COVID-19 mRNA, LNP-s, No Pre serve, 2-Dose Series (PinBridge) 03/01/2021,08/03/2020,07/13/2020 Pneumococcal Conjugate Vacc, 13 Valent (Prevnar) [...] Used Alcohol Use Standard Drinks/Week Comments Yes [id number] (1 standard drink = 0.6 oz pure [...] Encounter - Carlos Alberto Matthews MD - 12/12/2021 7:41 AM EDT See email documented in this encounter Plan of Treatment Upcoming Encounters Date Type Specialty Care Team Description 12/27/2021 Office Visit Rheumatology Carlos Alberto Matthews MD [address] [place] [address] 01/08/2022 Imaging Radiology 06/01/2022 Office Visit Internal Medicine William Joseph MD [address] [facility] [place], [place] [address] Scheduled Orders Name Type Priority Associated Diagnoses Orde r Schedule QUANTIFERON TB GOLD PLUS Lab Routine Rheumatoid arthritis involving multiple sites with positive rheumatoid factor (HCC) Ordered: 12/12/2021 Health Maintenance Due Date Last Done Comments FOBT ANNUALLY,AGES 18-90 03/22/2017 03/22/2016, 09/26 Zoster Vaccines (3 of 3) 12/26/2020 10/31/2020, 12/25 Depression Screening, Annual for Pts 12 and Over 02/17/2021 02/18/2020 COVID-19 Vaccine (4 - Booster for Pfizer series) 07/02/2021 03/01/2021, 08/03/2020, 07/13/2020 Influenza Vaccine (FLU shot) (#1) 2022 05/02/2021, 03/15/2020, 03/24/2019, Additional history exists CKD PHOS USE SMARTSET 81781 03/16/202202/25, 03/15/2020, 10/22/2018, Additional history exists CKD HGB USE SMARTSET 75746 05/02/202205/02, 10/14/2020, 11/18/2019, Additional history exists GFR - Renal Function 06/08/2022 12/06/2021, 03/16/2021, 03/16/2021, Additional history exists DTaP,Tdap,and Td Vaccines (2 [...] Documents on File Type Date Recorded Patient [employer] Professional Expl anation Advanced Directive Advanced Directive Advanced [...] Directive Advanced Directive Advanced Directive Care Teams Shank Inspector Relationship Specialty Start Date End Date William Joseph MD [address] [place] [address] PCP - General Internal Medicine 03/18/12 documented as of this encounter
--- OUTSIDE RECORDS SUMMARY | 2023-01-29 05:04 | External Medical Summary | Summary of Care ---
Author Name Unknown Organization [place] [address] Care Team Providers Care Administration Specialist Name Role Phone William Chavez MD Primary Care Provider + Reason for Visit * Reason Onset Date Comments Medication Refill 04/04/2022 Encounter Details Date Type Department Care Team Description 04/04/2022 Refill General Internal Medicine [facility] [address] [facility] [place] [address] William Chavez MD [address] [place] [address] Pernicious anemia Allergies No known active allergiesdocumented as of this encounter (statuses as of 04/05/2022) Medications Medication Sig Dispensed Refills Start Date [...] every month 1 mL 4 04/05/2022 Active Cyanocobalamin 1000 MCG/ML Injection Solution (Cyanocobalamin)In dications:Pernicio us anemia inject 1ml into a large muscle every month 1 mL 4 09/28/2021 04/04/2022 Discontinued (Refill) documented as of this encounter (statuses as of 04/05/2022) Active Problems Problem Noted Date MGUS (monoclonal [...] as of this encounter (statuses as of 04/05/2022) Resolved Problems Problem Noted Date Resolved Date Secondary hyperparathyroidism 08/10/2019 History of rheumatoid arthritis 09/04/2017 08/20/2018 History of rheumatoid arthritis 01/06/2016 07/27/2016 Kidney disease, chronic, stage III (GFR 30-59 ml /min) 08/09/2014 07/30/2017 Overview: Per CKD protocol #1 HTN, goal below 140/90 8 Kidney disease, chronic, stage III (GFR 30-59 ml /min) 03/24/2012 documented as of this encounter (statuses as of 04/05/2022) Immunizations Name Administration Dates Next Due COVID-19 [...] Telephone Encounter - William Chavez MD - 04/05/2022 4:05 PM ESTSigned Prescriptions: Disp Refills Cyanocobalamin 1000 MCG/ML Injection Solut*1 mL 4 Sig: inject 1ml into a large muscle every month Authorizing Provider: WILLIAM CHAVEZ * Telephone Encounter - An Lilly LPN - 04/05/2022 4:04 PM ESTPending Prescriptions: Disp Refills Cyanocobalamin 1000 MCG/ML Injection Solut*1 mL 4 Sig: inject 1ml into a large muscle every month * Telephone Encounter - An Lilly LPN - 04/05/2022 4:03 PM EST Did you pend patient's preferred pharmacy and medication before forwarding?yes Pharmacy: [id number] Pending Prescriptions: Disp Refills Cyanocobalamin 1000 MCG/ML Injection Solu*1 mL 4 Sig: inject 1ml into a large muscle every month Last Visit: 11/10/2021 (in office), Visit date not found (telemedicine) Next Visit: 06/01/2022 If no future appointments scheduled, and last appointment is greater than a year ago, please schedule patient for a follow-up appointment Last date the medication was ordered: 09/28/2021 Is this request for a controlled substance?No Urine Drug Screen:No results found for this or any previous visit. Patient Phone Numbers Labs: Lab Results Component Value Date/Time CREAT 1.19 12/06/2021 12:00 AM CREAT 1.3 (H) 05/04/2016 12:09 PM POTASSIUM 4.8 12/06/2021 12:00 AM POTASSIUM 4.6 05/04/2016 12:09 PM TSH 1.34 10/14/2020 12:00 AM TSH 0.82 06/24/2013 12:14 PM LDLCALC 106 (A) 12/06/2021 12:00 AM LDLCALC 119 05/04/2016 12:09 PM LDLDIRECT NOT APPLICABLE 05/04/2016 12:09 PM LDLDIRECT 107 06/11/2014 02:22 PM ALT 21 12/06/2021 12:00 AM ALT 10 05/04/2016 12:09 PM documented in this encounter Plan of Treatment Upcoming Encounters Date Type Specialty Care Team Description 05/09/2022 Office Visit Rheumatology Carlos Alberto Matthews MD [facility] [place] [address] 06/01/2022 Office Visit Internal Medicine [facility]avez [facility] [address] [facility] [place] [address] Health Maintenance Due Date Last Done Comments [...] 03/16/2021, , 01/01/2014 CKD PHOS USE SMARTSET 42215 03/16/202202/25, 03/15/2020, 10/22/2018, Additional history exists GFR - Renal Function 06/08/2022 12/06/2021, 03/16/2021, 03/16/2021, Additional history exists CKD HGB USE SMARTSET 93969 01/09/202301/09, 12/06/2021, 05/02/2021, Additional history exists DTaP,Tdap,and [...] anemia documented in this encounter Care Teams Administration Specialist Relationship Specialty Start Date End Date William Chavez MD [address] [place] [address], [place] [address] PCP - General Internal Medicine 03/18/12 documented as of this encounter
--- OUTSIDE RECORDS SUMMARY | 2023-01-29 05:04 | External Medical Summary | Summary of Care ---
Author Name Unknown Organization [place] [address] Care Team Providers Care Second Cutter Name Role Phone William Joseph MD Primary Care Provider + Reason for Visit * Reason Onset Date Comments Test Results 12/08/2021 Encounter Details Date Type Department Care Team Description 12/08/2021 Telephone General Internal Medicine [facility] [address] [place] [address] William Joseph MD 200 [place] [address] Test Results Allergies No known active allergiesdocumented as of this encounter (statuses as of 12/08/2021) Medications Medication Sig Dispensed Refills Start Date [...] as of this encounter (statuses as of 12/08/2021) Active Problems Problem Noted Date MGUS (monoclonal [...] as of this encounter (statuses as of 12/08/2021) Resolved Problems Problem Noted Date Resolved Date Secondary hyperparathyroidism 08/10/2019 History of rheumatoid arthritis 09/04/2017 08/20/2018 History of rheumatoid arthritis 01/06/2016 07/27/2016 Kidney disease, chronic, stage III (GFR 30-59 ml /min) 08/09/2014 07/30/2017 Overview: Per CKD protocol #1 HTN, goal below 140/90 8 Kidney disease, chronic, stage III (GFR 30-59 ml /min) 03/24/2012 documented as of this encounter (statuses as of 12/08/2021) Immunizations Name Administration Dates Next Due COVID-19 mRNA, LNP-s, No Pre serve, 2-Dose Series (Vibby) 03/01/2021,08/03/2020,07/13/2020 Pneumococcal Conjugate Vacc, 13 Valent (Prevnar) [...] Used Alcohol Use Standard Drinks/Week Comments Yes [id number] (1 standard drink = 0.6 oz pure [...] encounter Miscellaneous Notes * Telephone Encounter - NAHEED Loja - 12/08/2021 1:19 PM EDT Pt informed and verbalized understanding NAHEED Loja * Telephone Encounter - NAHEED Loja - 12/08/2021 1:18 PM EDT ----- Message from William Joseph MD sent at 12/08/2021 12:36 PM EDT ----- Lipids still a little high, but not bad. Ideally would do medication/statin but he has declined in past Sugar, kidney, liver good Vi b12 fine documented in this encounter Plan of Treatment Upcoming Encounters Date Type Specialty Care Team Description 12/27/2021 Office Visit Rheumatology Carlos Alberto Matthews MD [address] [place] [address] 01/08/2022 Imaging Radiology 06/01/2022 Office Visit Internal Medicine William Joseph MD [address] [place] [address] Health Maintenance Due Date Last Done Comments FOBT ANNUALLY,AGES 18-90 03/22/2017 03/22/2016, 09/26 Zoster Vaccines (3 of 3) 12/26/2020 10/31/2020, 12/25 Depression Screening, Annual for Pts 12 and Over 02/17/2021 02/18/2020 COVID-19 Vaccine (4 - Booster for Pfizer series) 07/02/2021 03/01/2021, 08/03/2020, 07/13/2020 Influenza Vaccine (FLU shot) (#1) 2022 05/02/2021, 03/15/2020, 03/24/2019, Additional history exists CKD PHOS USE SMARTSET 23929 03/16/202202/25, 03/15/2020, 10/22/2018, Additional history exists CKD HGB USE SMARTSET 46832 05/02/202205/02, 10/14/2020, 11/18/2019, Additional history exists GFR [...] Not on filedocumented as of this encounter Advance Directives Documents on File Type Date Recorded Patient Splicing Machine Operator Automatic Expl anation Advanced Directive Advanced Directive Advanced [...] Directive Advanced Directive Advanced Directive Care Teams Second Cutter Relationship Specialty Start Date End Date William Joseph MD 200 [place] [address] PCP - General Internal Medicine 03/18/12 documented as of this encounter
--- OUTSIDE RECORDS SUMMARY | 2023-01-29 05:04 | External Medical Summary | Summary of Care ---
Author Name Unknown Organization [place] [address] Care Team Providers Care Slicing Machine Operator Name Role Phone William Joseph MD Primary Care Provider + Reason for Visit * Reason Onset Date Comments eRx-Medication Refill Medication Refill 02/14/2022 Encounter Details Date Type Department Care Team Description 02/12/2022 Refill General Internal Medicine [facility] 200 [place] [address] William Joseph MD 200 [place] [address] Bronchiectasis (HCC) Allergies No known active allergiesdocumented as of this encounter (statuses as of 02/14/2022) Medications Medication Sig Dispensed Refills Start Date [...] as of this encounter (statuses as of 02/14/2022) Active Problems Problem Noted Date MGUS (monoclonal [...] as of this encounter (statuses as of 02/14/2022) Resolved Problems Problem Noted Date Resolved Date Secondary hyperparathyroidism 08/10/2019 History of rheumatoid arthritis 09/04/2017 08/20/2018 History of rheumatoid arthritis 01/06/2016 07/27/2016 Kidney disease, chronic, stage III (GFR 30-59 ml /min) 08/09/2014 07/30/2017 Overview: Per CKD protocol #1 HTN, goal below 140/90 8 Kidney disease, chronic, stage III (GFR 30-59 ml /min) 03/24/2012 documented as of this encounter (statuses as of 02/14/2022) Immunizations Name Administration Dates Next Due COVID-19 mRNA, LNP-s, No Pre serve, 2-Dose Series (Onyu) 03/01/2021,08/03/2020,07/13/2020 Pneumococcal Conjugate Vacc, 13 Valent (Prevnar) [...] Used Alcohol Use Standard Drinks/Week Comments Yes [id number] (1 standard drink = 0.6 oz pure [...] encounter Miscellaneous Notes * Telephone Encounter - Claudia Peraza, [facility] located [facility] - 02/13/2022 7:08 AM EDT Refused Prescriptions: Disp Refills Flovent HFA 44 MCG/ACT Inhalation Aerosol *10.6 g 0 Sig: INHALE ONE PUFF BY MOUTH TWICE DAILY Refused By: CLAUDIA PERAZA Reason for Refusal: Patient Should Contact Provider First Electronically signed by Claudia Peraza [facility] at 02/13/2022 7:08 AM EDT * Telephone Encounter - Claudia Peraza RP - 02/13/2022 7:08 AM EDT This Order Has Been Discontinued Order Status Reason By On Discontinued None Fani Hickman LPN 11/29/21 1048 Electronically signed by Claudia Peraza [facility] at 02/13/2022 7:08 AM EDT documented in this encounter Plan of Treatment Upcoming Encounters Date Type Specialty Care Team Description 05/09/2022 Office Visit Rheumatology Carlos Alberto Matthews MD [address] [place] [address] 06/01/2022 Office Visit Internal Medicine William Joseph MD 200 [place] [address] Health Maintenance Due Date Last Done Comments [...] 03/16/2021, , 01/01/2014 CKD PHOS USE SMARTSET 69979 03/16/202202/25, 03/15/2020, 10/22/2018, Additional history exists GFR - Renal Function 06/08/2022 12/06/2021, 03/16/2021, 03/16/2021, Additional history exists CKD HGB USE SMARTSET 93064 01/09/202301/09, 12/06/2021, 05/02/2021, Additional history exists DTaP,Tdap,and [...] of this encounter Visit Diagnoses Diagnosis Bronchiectasis (HCC) Bronchiectasis without acute exacerbation documented in this encounter Advance Directives Documents on File Type Date Recorded Patient Research Greenhouse Supervisor Expl anation Advanced Directive Advanced Directive Advanced [...] Directive Advanced Directive Advanced Directive Care Teams Slicing Machine Operator Relationship Specialty Start Date End Date William Joseph MD 200 [place] [address] PCP - General Internal Medicine 03/18/12 documented as of this encounter
--- OUTSIDE RECORDS SUMMARY | 2023-01-29 05:04 | External Medical Summary | Summary of Care ---
Author Name Unknown Organization [place] [address] Care Team Providers Care Railway Engineer Name Role Phone William Joseph MD Primary Care Provider + Encounter Details Date Type Department Care Team Description 12/21/2021 External Data Patient Risk Medial Allergies No known active allergiesdocumented as of this encounter (statuses as of 12/28/2021) Medications Medication Sig Dispensed Refills Start Date [...] as of this encounter (statuses as of 12/28/2021) Active Problems Problem Noted Date MGUS (monoclonal [...] as of this encounter (statuses as of 12/28/2021) Resolved Problems Problem Noted Date Resolved Date Secondary hyperparathyroidism 08/10/2019 History of rheumatoid arthritis 09/04/2017 08/20/2018 History of rheumatoid arthritis 01/06/2016 07/27/2016 Kidney disease, chronic, stage III (GFR 30-59 ml /min) 08/09/2014 07/30/2017 Overview: Per CKD protocol #1 HTN, goal below 140/90 8 Kidney disease, chronic, stage III (GFR 30-59 ml /min) 03/24/2012 documented as of this encounter (statuses as of 12/28/2021) Immunizations Name Administration Dates Next Due COVID-19 mRNA, LNP-s, No Pre serve, 2-Dose Series (Versartis) 03/01/2021,08/03/2020,07/13/2020 Pneumococcal Conjugate Vacc, 13 Valent (Prevnar) [...] Used Alcohol Use Standard Drinks/Week Comments Yes [id number] (1 standard drink = 0.6 oz pure [...] 01/08/2022 Imaging Radiology 05/09/2022 Office Visit Rheumatology Carlos Alberto Matthews MD [address] [place] [address] 06/01/2022 Office Visit Internal Medicine William Joseph MD [address] [place] [address] Health Maintenance Due Date Last Done Comments Hepatitis C Screening 1961 FOBT ANNUALLY,AGES 18-90 03/22/2017 03/22/2016, 09/26 Zoster Vaccines (3 of 3) 12/26/2020 10/31/2020, 12/25 Depression Screening, Annual for Pts 12 and Over 02/17/2021 02/18/2020 COVID-19 Vaccine (4 - Booster for Pfizer series) 07/02/2021 03/01/2021, 08/03/2020, 07/13/2020 Influenza Vaccine (FLU shot) (#1) 2022 05/02/2021, 03/15/2020, 03/24/2019, Additional history exists CKD PHOS USE SMARTSET 78618 03/16/202202/25, 03/15/2020, 10/22/2018, Additional history exists GFR - Renal Function 06/08/2022 12/06/2021, 03/16/2021, 03/16/2021, Additional history exists CKD HGB USE SMARTSET 91520 12/06/202212/06, 05/02/2021, 10/14/2020, Additional history exists DTaP,Tdap,and [...] Documents on File Type Date Recorded Patient Compliance Specialist Expl anation Advanced Directive Advanced Directive Advanced [...] Directive Advanced Directive Advanced Directive Care Teams Railway Engineer Relationship Specialty Start Date End Date William Joseph MD [address] [place] [address], [place] [address] PCP - General Internal Medicine 03/18/12 documented as of this encounter
--- OUTSIDE RECORDS SUMMARY | 2023-01-29 05:05 | External Medical Summary | Summary of Care ---
Author Name Unknown Organization [place] [address] Care Team Providers Care Circus Rider Name Role Phone William Joseph MD Primary Care Provider + Reason for Visit * Reason Comments eRx-Medication Refill Encounter Details Date Type Department Care Team Description 09/28/2021 Refill General Internal Medicine [facility] [address] [facility] [place] [id number] William Joseph MD 200 [facility] [place] [address] Pernicious anemia Allergies No known active allergiesdocumented as of this encounter (statuses as of 09/29/2021) Medications Medication Sig Dispensed Refills Start Date End Date Status Cholecalciferol (VITAMIN D3) 50 MCG (2000 UT) Tablet Take 1,000 Units by mouth. Every 2 - 3 days 0 Active predniSONE 5 MG Oral Tablet (Deltasone)Indicati ons:H/O rheumatoid arthritis Take 1 Tab by mouth daily. 30 Tab 5 02/13/2021 Active Additional Information Patient not taking. Reported on 08/14/2021 Benazepril HCl 5 MG Oral Tablet (Lotensin)Indicatio ns: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) Take 1 Tablet by mouth daily. 30 Tablet 5 04/13/2021 Active Benzonatate 100 MG Oral Capsule (Tessalpolo Silva)Indications: Cough Take by mouth 1 Capsule 2 [...] 09/27/2021 Active Cyanocobalamin 1000 MCG/ML Injection Solution (Cyanocobalamin)Ind ications:Pernicious anemia inject 1ml into a large muscle every month 1 mL 4 09/28/2021 Active documented as of this encounter (statuses as of 09/29/2021) Active Problems Problem Noted Date MGUS (monoclonal [...] as of this encounter (statuses as of 09/29/2021) Resolved Problems Problem Noted Date Resolved Date Secondary hyperparathyroidism 08/10/2019 History of rheumatoid arthritis 09/04/2017 08/20/2018 History of rheumatoid arthritis 01/06/2016 07/27/2016 Kidney disease, chronic, stage III (GFR 30-59 ml /min) 08/09/2014 07/30/2017 Overview: Per CKD protocol #1 HTN, goal below 140/90 8 Kidney disease, chronic, stage III (GFR 30-59 ml /min) 03/24/2012 documented as of this encounter (statuses as of 09/29/2021) Immunizations Name Administration Dates Next Due COVID-19 [...] Used Alcohol Use Standard Drinks/Week Comments Yes [id number] (1 standard drink = 0.6 oz pure [...] encounter Miscellaneous Notes * Telephone Encounter - Vanessa Coreas RPh - 09/29/2021 10:49 AM EDT Refused Prescriptions: Disp Refills Cyanocobalamin 1000 MCG/ML Injection Solut*1 mL 0 Sig: inject 1ml into a large muscle every monthRefused By: Chantelle COREASon for Refusal: Duplicate Request----- documented in this encounter Plan of Treatment Upcoming Encounters Date Type Specialty Care Team Description 11/08/2021 Office Visit Hematology Oncology Josue, [place] MD [address] [place] [address] 11/10/2021 Office Visit Internal Medicine William Joseph MD [address] [place] [address] 12/27/2021 Office Visit Rheumatology Carlos Alberto Matthews MD [address] [place] [address] Health Maintenance Due Date Last Done Comments FOBT ANNUALLY,AGES 18-90 03/22/2017 03/22/2016, 09/26 Zoster Vaccines (3 of 3) 12/26/2020 10/31/2020, 12/25 Depression Screening, Annual for Pts 12 and Over 02/17/2021 02/18/2020 CKD GFR USE SMARTSET 69791 09/14/202103/16, 03/16/2021, 10/14/2020, Additional history exists BASIC METABOLIC PANEL (BMP) FOR HTN YEARLY 03/16/2022 03/16/2021, 03/16/2021, 10/14/2020, Additional history exists CKD PHOS USE SMARTSET 25199 03/16/2022 1005/2020, 03/15/2020, 10/22/2018, Additional history exists CKD HGB USE SMARTSET 35735 05/02/202205/02, 10/14/2020, 11/18/2019, Additional history exists DIABETES SCREEN EVERY 3 YRS-AGE 45 AND ABOVE 03/16/2024 03/16/2021, 03/16/2021, 10/14/2020, Additional history exists DTaP,Tdap,and Td Vaccines (2 - Td or Tdap) 01/10/2025 01/10/2015 Pneumococcal Vaccine: 65+ Years Completed 07/13/2015, 06/08/2013 COVID-19 Vaccine Completed 03/01/2021, 02/2021, 07/13/2020 Influenza Vaccine (FLU shot) Completed 11/2020, 03/15/2020, [...] Diagnosis Pernicious anemia documented in this encounter Advance Directives Documents on File Type Date Recorded Patient Transportation Maintenance Worker Expl anation Advanced Directive Advanced Directive Advanced [...] Directive Advanced Directive Advanced Directive Care Teams Circus Rider Relationship Specialty Start Date End Date William Joseph MD [address] [place] [address] PCP - General Internal Medicine 03/18/12 documented as of this encounter
--- OUTSIDE RECORDS SUMMARY | 2023-01-29 05:05 | External Medical Summary | Summary of Care ---
Author Name Unknown Organization [place] [address] Care Team Providers Care Inbound Sales Representative Name Role Phone William Joseph MD Primary Care Provider + Encounter Details Date Type Department Care Team Description 05/04/2021 Result Scan Hematology/Oncology [facility] [address] [place] [address] [place] MD [address] [place] [address] <No scans attached> Allergies No known active allergiesdocumented as of this encounter (statuses as of 05/08/2021) Medications Medication Sig Dispensed Refills Start Date End Date Status Cholecalciferol (VITAMIN D3) 50 MCG (1999 UT) Tablet Take 1,000 Units by mouth. Every 2 - 3 days 0 Active benzonatate (TESSALON PERLES) 100 MG CapsuleIndications: Cough Take 1 Cap by mouth 2 times a day as needed for Cough. Do not cut, crush, or chew. 50 Cap 2 10/20/2019 Active Flovent HFA 44 MCG/ACT Inhalation Aerosol (fluticasone)Indica tions:Bronchiectasi s (HCC) INHALE ONE PUFF BY MOUTH TWICE DAILY 10.6 g 5 06/22/2020 Active predniSONE 5 MG Oral Tablet (Deltasone)Indicati ons:H/O rheumatoid arthritis Take 1 Tab by mouth daily. 30 Tab 5 02/13/2021 Active Cyanocobalamin 1000 MCG/ML Injection Solution (Cyanocobalamin)Ind ications:Pernicious anemia inject 1ml into a large muscle every month 1 mL 4 02/13/2021 Active amLODIPine Besy-Benazepril HCl 2.5-10 MG Oral Capsule (Lotrel)Indications :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) TAKE ONE CAPSULE BY MOUTH ONE TIME DAILY 30 Capsule 5 04/03/2021 Active Benazepril HCl 5 MG Oral Tablet (Lotensin)Indicatio ns: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) Take 1 Tablet by mouth daily. 30 Tablet 5 04/13/2021 Active Doxycycline Hyclate 100 MG Oral CapsuleIndications: Acute maxillary sinusitis, recurrence not specified Take 1 Capsule by mouth 2 times a day for 7 days. Take for 7 days 14 Capsule 0 05/02/2021 05/09/2021 Active Fluticasone Propionate 50 MCG/ACT Nasal SuspensionIndicatio ns:Acute maxillary sinusitis, recurrence not specified Administer 2 Sprays into each nostril daily. 16 g 0 05/02/2021 Active documented as of this encounter (statuses as of 05/08/2021) Active Problems Problem Noted Date MGUS (monoclonal [...] as of this encounter (statuses as of 05/08/2021) Resolved Problems Problem Noted Date Resolved Date Secondary hyperparathyroidism 08/10/2019 History of rheumatoid arthritis 09/04/2017 08/20/2018 History of rheumatoid arthritis 01/06/2016 07/27/2016 Kidney disease, chronic, stage III (GFR 30-59 ml /min) 08/09/2014 07/30/2017 Overview: Per CKD protocol #1 HTN, goal below 140/90 8 Kidney disease, chronic, stage III (GFR 30-59 ml /min) 03/24/2012 documented as of this encounter (statuses as of 05/08/2021) Immunizations Name Administration Dates Next Due COVID-19 mRNA, LNP-s, No Pre serve, 2-Dose Series (Pfizer) 08/03/2020,07/13/2020 Pneumococcal Conjugate Vacc, 13 Valent (Prevnar) 07/13/2015 [...] Used Alcohol Use Standard Drinks/Week Comments Yes [id number] (1 standard drink = 0.6 oz pure [...] Encounters Date Type Specialty Care Team Description 05/10/2021 Office Visit Hematology Oncology Eliana Lawrence CRNP [address] [place] [address] 08/14/2021 Office Visit Rheumatology Carlos Alberto Matthews MD [address] [facility] [place] [address] 11/10/2021 Office Visit Internal Medicine William Joseph MD [address] [place] [address] Health Maintenance Due Date Last Done Comments FOBT ANNUALLY,AGES 18-90 03/22/2017 03/22/2016, 09/26 Zoster Vaccines (3 of 3) 12/26/2020 10/31/2020, 12/25 COVID-19 Vaccine (3 - Booster for Pfizer series) 02/03/2021 08/03/2020, 07/13/2020 *DEPRESSION SCREENING,ANNUAL FOR PTS 12 AND OVER 02/23/2021 CKD GFR USE SMARTSET 57599 09/14/202103/16, 03/16/2021, 10/14/2020, Additional history exists CKD PHOS USE SMARTSET 30658 03/16/202202/25, 03/15/2020, 10/22/2018, Additional history exists CKD HGB USE SMARTSET 56248 05/02/202205/02, 10/14/2020, 11/18/2019, Additional history exists DIABETES SCREEN EVERY 3 YRS-AGE 45 AND ABOVE 03/16/2024 03/16/2021, 03/16/2021, 10/14/2020, Additional history exists DTaP,Tdap,and Td Vaccines (2 - Td or Tdap) 01/10/2025 01/10/2015 Pneumococcal Vaccine: 65+ Years Completed 07/13/2015, 06/08/2013 Influenza Vaccine (FLU shot) Completed 11/2020, 03/15/2020, 03/24/2019, Additional history exists MENINGOCOCCAL (MENACTRA/MENVEO) Aged Out No longer eligible based on patient's age to complete this topic documented as of this encounter Implants Not on filedocumented as of this encounter Procedures Procedure Name Priority Date/Time Associated Diagnosis Comments OUTSIDE LAB RESULTS 05/04/2021 documented in this encounter Results * OUTSIDE LAB RESULTS (05/04/2021) Specimen Narrative documented in this encounter Advance Directives Documents on File Type Date Recorded Patient Parish Visitor Expl anation Advanced Directive Advanced Directive Advanced [...] Directive Advanced Directive Advanced Directive Care Teams Inbound Sales Representative Relationship Specialty Start Date End Date William Joseph MD [address] [place] [address] PCP - General Internal Medicine 03/18/12 documented as of this encounter
--- OUTSIDE RECORDS SUMMARY | 2023-01-29 05:05 | External Medical Summary | Summary of Care ---
Author Name Unknown Organization [place] [address] Care Team Providers Care System Specialist Name Role Phone William Joseph MD Primary Care Provider + Encounter Details Date Type Department Care Team Description 05/03/2021 Orders Only Hematology/Oncology [facility] [address] [place] [address] [place] MD 200 [place] [address] Allergies No known active allergiesdocumented as of this encounter (statuses as of 05/03/2021) Medications Medication Sig Dispensed Refills Start Date [...] as of this encounter (statuses as of 05/03/2021) Active Problems Problem Noted Date MGUS (monoclonal [...] as of this encounter (statuses as of 05/03/2021) Resolved Problems Problem Noted Date Resolved Date Secondary hyperparathyroidism 08/10/2019 History of rheumatoid arthritis 09/04/2017 08/20/2018 History of rheumatoid arthritis 01/06/2016 07/27/2016 Kidney disease, chronic, stage III (GFR 30-59 ml /min) 08/09/2014 07/30/2017 Overview: Per CKD protocol #1 HTN, goal below 140/90 8 Kidney disease, chronic, stage III (GFR 30-59 ml /min) 03/24/2012 documented as of this encounter (statuses as of 05/03/2021) Immunizations Name Administration Dates Next Due COVID-19 [...] Used Alcohol Use Standard Drinks/Week Comments Yes [id number] (1 standard drink = 0.6 oz pure [...] Hematology Oncology Eliana Lawrence CRNP [address] [place] [address] 08/14/2021 Office Visit Rheumatology Carlos Alberto Matthews MD [address] [place] [address] 11/10/2021 Office Visit Internal Medicine William Joseph MD [address] [place] [address] Health Maintenance Due Date Last Done Comments FOBT ANNUALLY,AGES 18-90 03/22/2017 03/22/2016, 09/26 Zoster Vaccines (3 of 3) 12/26/2020 10/31/2020, 12/25 COVID-19 Vaccine (3 - Booster for Pfizer series) 02/03/2021 08/03/2020, 07/13/2020 *DEPRESSION SCREENING,ANNUAL FOR PTS 12 AND OVER 02/23/2021 CKD GFR USE SMARTSET 21996 09/14/202103/16, 03/16/2021, 10/14/2020, Additional history exists CKD PHOS USE SMARTSET 64628 03/16/202202/25, 03/15/2020, 10/22/2018, Additional history exists CKD HGB USE SMARTSET 10653 05/02/202205/02, 10/14/2020, 11/18/2019, Additional history exists DIABETES [...] Procedure Name Priority Date/Time Associated Diagnosis Comments CBC WITH WBC DIFFERENTIAL Routine 05/02/2021 SERUM PROTEIN ELECTROPHORESI S REFLEX PROFILE Routine 05/01/2021 SERUM IMMUNOFIXATION Routine 05/01/2021 COMPREHENSIVE METABOLIC PANEL Routine 05/01/2021 documented in this encounter Results * CBC WITH WBC DIFFERENTIAL (05/02/2021) Specimen Blood - Venous blood specime n (specimen) Narrative Performing Organization Address [facility] [place] Phone Number OUTSIDE LAB (SEE SCANNED REPORT) * SERUM IMMUNOFIXATION (05/01/2021) Specimen Blood - Venous blood specime n (specimen) Narrative Performing Organization Address [place]/[facility] [place] Phone Number OUTSIDE LAB (SEE SCANNED REPORT) * SERUM PROTEIN ELECTROPHORESIS REFLEX PROFILE (05/01/2021) Specimen Blood - Venous blood specime n (specimen) Narrative Performing Organization Address [facility] [place] Phone Number OUTSIDE LAB (SEE SCANNED REPORT) * COMPREHENSIVE METABOLIC PANEL (05/01/2021) CREATININE-OUTSIDE LAB OUTSI DE LAB (SEE SCANNED REPORT) EGFR-OUTSIDE LAB OUTSIDE LAB (SEE SCANNED REPORT) POTASSIUM-OUTSIDE LAB OUTSID E LAB (SEE SCANNED REPORT) GLUCOSE-OUTSIDE LAB OUTSIDE LAB (SEE SCANNED REPORT) ALT-OUTSIDE LAB OUTSIDE LAB (SEE SCANNED REPORT) Specimen Blood - Venous blood specime n (specimen) Narrative Performing Organization Address [place]/[facility] [place] Phone Number OUTSIDE LAB (SEE SCANNED REPORT) documented in this encounter Advance Directives Documents on File Type Date Recorded Patient Qualitative Researcher Expl anation Advanced Directive Advanced Directive Advanced [...] Directive Advanced Directive Advanced Directive Care Teams System Specialist Relationship Specialty Start Date End Date William Joseph MD [address] [place] [address] PCP - General Internal Medicine 03/18/12 documented as of this encounter
--- OUTSIDE RECORDS SUMMARY | 2023-01-29 05:05 | External Medical Summary | Summary of Care ---
Author Name Unknown Organization [place] [address] Care Team Providers Care Nascar Driver Name Role Phone William Chavez MD Primary Care Provider + Reason for Visit * Reason Onset Date Comments Medication Refill 09/27/2021 Encounter Details Date Type Department Care Team Description 09/27/2021 Refill General Internal Medicine [facility] 200 [facility] [place] [address] William Chavez MD [address] [place] [address] Bronchiectasis (HCC); 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) Allergies No known active allergiesdocumented as of this encounter (statuses as of 09/27/2021) Medications Medication Sig Dispensed Refills Start Date End Date Status Cholecalciferol (VITAMIN D3) 50 MCG (1999 UT) Tablet Take 1,000 Units by mouth. Every 2 - 3 days 0 Active predniSONE 5 MG Oral Tablet (Deltasone)Indicat ions:H/O rheumatoid arthritis Take 1 Tab by mouth daily. 30 Tab 5 02/13/2021 Active Additional Information Patient not taking. Reported on 08/14/2021 Cyanocobalamin 1000 MCG/ML Injection Solution (Cyanocobalamin)In dications:Pernicio us anemia inject 1ml into a large muscle every month 1 mL 4 02/13/2021 Active Benazepril HCl 5 MG Oral Tablet (Lotensin)Indicati ons: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) Take 1 Tablet by mouth daily. 30 Tablet 5 04/13/2021 Active Fluticasone Propionate HFA 44 MCG/ACT Inhalation Aerosol (Flovent HFA)Indications:Br onchiectasis (HCC) Inhale by mouth 1 Puff in the morning AND 1 Puff before bedtime. 10.6 g 5 09/27/2021 Active amLODIPine Besy-Benazepril HCl 2.5-10 MG Oral Capsule (Lotrel)Indication s: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) Take by mouth 1 Capsule in the morning. 30 Capsule 5 09/27/2021 Active benzonatate (TESSALON PERLES) 100 MG CapsuleIndications :Cough Take 1 Cap by mouth 2 times a day as needed for Cough. Do not cut, crush, or chew. 50 Cap 2 10/20/2019 2 Discontinue d(Refill) Flovent HFA 44 MCG/ACT Inhalation Aerosol (fluticasone)Indic ations:Bronchiecta sis (HCC) INHALE ONE PUFF BY MOUTH TWICE DAILY 10.6 g 5 06/22/2020 2 Discontinue d(Refill) amLODIPine Besy-Benazepril HCl 2.5-10 MG Oral Capsule (Lotrel)Indication s: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) TAKE ONE CAPSULE BY MOUTH ONE TIME DAILY 30 Capsule 5 04/03/2021 2 Discontinue d(Refill) documented as of this encounter (statuses as of 09/27/2021) Active Problems Problem Noted Date MGUS (monoclonal [...] as of this encounter (statuses as of 09/27/2021) Resolved Problems Problem Noted Date Resolved Date Secondary hyperparathyroidism 08/10/2019 History of rheumatoid arthritis 09/04/2017 08/20/2018 History of rheumatoid arthritis 01/06/2016 07/27/2016 Kidney disease, chronic, stage III (GFR 30-59 ml /min) 08/09/2014 07/30/2017 Overview: Per CKD protocol #1 HTN, goal below 140/90 8 Kidney disease, chronic, stage III (GFR 30-59 ml /min) 03/24/2012 documented as of this encounter (statuses as of 09/27/2021) Immunizations Name Administration Dates Next Due COVID-19 mRNA, LNP-s, No Pre serve, 2-Dose Series (LatinCoin) 03/01/2021,08/03/2020,07/13/2020 Pneumococcal Conjugate Vacc, 13 Valent (Prevnar) [...] Used Alcohol Use Standard Drinks/Week Comments Yes [id number] (1 standard drink = 0.6 oz pure [...] Telephone Encounter - William Chavez MD - 09/27/2021 12:51 PM EDT Signed Prescriptions: Disp Refills Fluticasone Propionate HFA 44 MCG/ACT Inha*10.6 g 5 Sig: Inhale by mouth 1 Puff in the morning AND 1 Puff before bedtime. Authorizing Provider: WILLIAM CHAVEZ amLODIPine Besy-Benazepril HCl 2.5-10 MG O*30 Cap*5 Sig: Take by mouth 1 Capsule in the morning. Authorizing Provider: WILLIAM CHAEVZ * Telephone Encounter - Aubree Wilson LPN - 09/27/2021 12:39 PM EDT Pending Prescriptions: Disp Refills Fluticasone Propionate HFA 44 MCG/ACT Inh*10.6 g 5 Sig: Inhale by mouth 1 Puff in the morning AND 1 Puff before bedtime. amLODIPine Besy-Benazepril HCl 2.5-10 MG *30 Cap*5 Sig: Take by mouth 1 Capsule in the morning. * Telephone Encounter - Aubree Wilson LPN - 09/27/2021 12:37 PM EDT Pending Prescriptions: Disp Refills Fluticasone Propionate HFA 44 MCG/ACT Inh*10.6 g 5 Sig: Inhale by mouth 1 Puff in the morning AND 1 Puff before bedtime. amLODIPine Besy-Benazepril HCl 2.5-10 MG *30 Cap*5 Sig: Take by mouth 1 Capsule in the morning. Last Visit: 05/02/2021 (in office), Visit date not found (telemedicine) Next Visit: 11/10/2021 If no future appointments scheduled, and last appointment is greater than a year ago, please schedule patient for a follow-up appointment Last date the medication was ordered: 04/03/21, 06/22/20 Pharmacy: [id number] Is this request for a controlled substance?No Urine Drug Screen:No results found for this or any previous visit. Patient Phone Numbers Labs: Lab Results Component Value Date/Time CREAT 1.25 (A) 03/16/2021 12:00 AM CREAT 1.19 (A) 03/16/2021 12:00 AM CREAT 1.3 (H) 05/04/2016 12:09 PM POTASSIUM 4.5 03/16/2021 12:00 AM POTASSIUM 4.5 03/16/2021 12:00 AM POTASSIUM 4.6 05/04/2016 12:09 PM TSH 1.34 10/14/2020 12:00 AM TSH 0.82 06/24/2013 12:14 PM LDLCALC 110 (A) 10/14/2020 12:00 AM LDLCALC 119 05/04/2016 12:09 PM LDLDIRECT NOT APPLICABLE 05/04/2016 12:09 PM LDLDIRECT 107 06/11/2014 02:22 PM ALT 13 10/14/2020 12:00 AM ALT 10 05/04/2016 12:09 PM documented in this encounter Plan of Treatment Upcoming Encounters Date Type Specialty Care Team Description 11/08/2021 Office Visit Hematology Oncology [place] MD 200 [place] [address] 11/10/2021 Office Visit Internal Medicine William Chavez MD 200 [place] [address] 12/27/2021 Office Visit Rheumatology Carlos Alberto Matthews MD [address] [place] [address] Health Maintenance Due Date Last Done Comments FOBT ANNUALLY,AGES 18-90 03/22/2017 03/22/2016, 09/26 Zoster Vaccines (3 of 3) 12/26/2020 10/31/2020, 12/25 Depression Screening, Annual for Pts 12 and Over 02/17/2021 02/18/2020 CKD GFR USE SMARTSET 24613 09/14/202103/16, 03/16/2021, 10/14/2020, Additional history exists BASIC METABOLIC PANEL (BMP) FOR HTN YEARLY 03/16/2022 03/16/2021, 03/16/2021, 10/14/2020, Additional history exists CKD PHOS USE SMARTSET 68450 03/16/202202/25, 03/15/2020, 10/22/2018, Additional history exists CKD HGB USE SMARTSET 23010 05/02/202205/02, 10/14/2020, 11/18/2019, Additional history exists DIABETES [...] Diagnosis Bronchiectasis (HCC) Bronchiectasis without acute exacerbation 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, or unspecified documented in this encounter Advance Directives Documents on File Type Date Recorded Patient Tool Maker Expl anation Advanced Directive Advanced Directive Advanced [...] Directive Advanced Directive Advanced Directive Care Teams Nascar Driver Relationship Specialty Start Date End Date William Chavez MD [address] [place] [address] PCP - General Internal Medicine 03/18/12 documented as of this encounter
--- OUTSIDE RECORDS SUMMARY | 2023-01-29 05:05 | External Medical Summary | Summary of Care ---
Author Name Unknown Organization [place] [address] Care Team Providers Care Recording Studio Set Up Worker Name Role Phone William Joseph MD Primary Care Provider + Reason for Visit * Reason Onset Date Comments Outpatient Testing 05/02/2021 Encounter Details Date Type Department Care Team Description 05/02/2021 Telephone Hematology/Oncology [facility] [address] [place] [address] [place] Salas MD [address] [place] [address] Outpatient Testing Allergies No known active allergiesdocumented as of this encounter (statuses as of 05/02/2021) Medications Medication Sig Dispensed Refills Start Date [...] as of this encounter (statuses as of 05/02/2021) Active Problems Problem Noted Date MGUS (monoclonal [...] as of this encounter (statuses as of 05/02/2021) Resolved Problems Problem Noted Date Resolved Date Secondary hyperparathyroidism 08/10/2019 History of rheumatoid arthritis 09/04/2017 08/20/2018 History of rheumatoid arthritis 01/06/2016 07/27/2016 Kidney disease, chronic, stage III (GFR 30-59 ml /min) 08/09/2014 07/30/2017 Overview: Per CKD protocol #1 HTN, goal below 140/90 8 Kidney disease, chronic, stage III (GFR 30-59 ml /min) 03/24/2012 documented as of this encounter (statuses as of 05/02/2021) Immunizations Name Administration Dates Next Due COVID-19 [...] Used Alcohol Use Standard Drinks/Week Comments Yes 5.357605600973398424 (1 standard drink = 0.6 oz pure [...] encounter Miscellaneous Notes * Telephone Encounter - Cb Correia CMA - 05/02/2021 1:24 PM EST Lex from [employer] called in regards to the pt's most recent lab orders. Juan R is confused about the orders, specifically in regards to the kappa light chain request. [facility]ari is unsure of whether or not this is to be done through a urine or serum test. Pt will be returning a 24 hour urine sample and the test can be completed then, [facility] just needs clarification. [facility]ari was informed that a nurse would be reaching out to provide clarification on the order. [facility]ari also requested that the pt's most recent lab orders be re-faxed to [phone]. Khari can be reached at [phone]. documented in this encounter Plan of Treatment Upcoming Encounters Date Type Specialty Care Team Description 08/14/2021 Office Visit Rheumatology Carlos Alberto Matthews MD [address] [place] [address] 11/10/2021 Office Visit Internal Medicine William Joseph MD [address] [facility] [place] [address] Health Maintenance Due Date Last Done Comments FOBT ANNUALLY,AGES 18-90 03/22/2017 03/22/2016, 09/26 Zoster Vaccines (3 of 3) 12/26/2020 10/31/2020, 12/25 COVID-19 Vaccine (3 - Booster for Pfizer series) 02/03/2021 08/03/2020, 07/13/2020 *DEPRESSION SCREENING,ANNUAL FOR PTS 12 AND OVER 02/23/2021 CKD GFR USE SMARTSET 32790 09/14/202103/16, 03/16/2021, 10/14/2020, Additional history exists CKD HGB USE SMARTSET 71565 10/14/202110/14, 11/18/2019, 10/22/2018, Additional history exists CKD PHOS USE SMARTSET 15690 03/16/202202/25, 03/15/2020, 10/22/2018, Additional history exists DIABETES SCREEN EVERY 3 [...] Documents on File Type Date Recorded Patient Brim Stitcher Expl anation Advanced Directive Advanced Directive Advanced [...] Directive Advanced Directive Advanced Directive Care Teams Recording Studio Set Up Worker Relationship Specialty Start Date End Date William Joseph MD 200 [place] [address] PCP - General Internal Medicine 03/18/12 documented as of this encounter
--- OUTSIDE RECORDS SUMMARY | 2023-01-29 05:05 | External Medical Summary | Summary of Care ---
Author Name Unknown Organization [place] [address] Care Team Providers Care Professional Skater Name Role Phone William Joseph MD Primary Care Provider + Reason for Visit * Reason Onset Date Comments Outpatient Testing 05/02/2021 Encounter Details Date Type Department Care Team Description 05/02/2021 Telephone Hematology/Oncology [facility] 200 [place] [address] [place] Salas MD 200 [place] [address] Outpatient Testing Allergies No known active allergiesdocumented [...] Used Alcohol Use Standard Drinks/Week Comments Yes 5.938355644586405164 (1 standard drink = 0.6 oz pure [...] encounter Miscellaneous Notes * Telephone Encounter - Caroline Tillman RN - 05/02/2021 1:59 PM EST Called [facility] and reviewed that the serum free light chains is to be a serum aka blood test and the free kappa and lamda is a 24 hr urine. They did not draw the serum free light chains, so they will need the order re-faxed at this number [phone]. Pt will be returning to [facility] tomorrow with urineso they will draw it then. Cb: Please fax the lab order for serum free light chains to [facility] at the above number. Thank you! * Telephone Encounter - Cb Correia CMA - 05/02/2021 1:24 PM EST Lex from [facility] called in regards to the pt's most [...] most recent lab orders be re-faxed to [phone]. Khari can be reached at [phone]. documented in this encounter Plan of Treatment Upcoming Encounters Date Type Specialty Care Team Description 08/14/2021 Office Visit Rheumatology Carlos Alberto Matthews MD [address] [place] [address], [place] [address] 11/10/2021 Office Visit Internal Medicine [facility], William Villanueva MD [address] [place] [address] Health Maintenance Due Date Last Done Comments FOBT ANNUALLY,AGES 18-90 03/22/2017 03/22/2016, 09/26 Zoster Vaccines (3 of 3) 12/26/2020 10/31/2020, 12/25 COVID-19 Vaccine (3 - Booster for Pfizer series) 02/03/2021 08/03/2020, 07/13/2020 *DEPRESSION SCREENING,ANNUAL FOR PTS 12 AND OVER 02/23/2021 CKD GFR USE SMARTSET 43990 09/14/202103/16, 03/16/2021, 10/14/2020, Additional history exists CKD HGB USE SMARTSET 01124 10/14/202110/14, 11/18/2019, 10/22/2018, Additional history exists CKD PHOS USE SMARTSET 77048 03/16/202202/25, 03/15/2020, 10/22/2018, Additional history exists DIABETES [...] Documents on File Type Date Recorded Patient Pediatric Dietician Expl anation Advanced Directive Advanced Directive Advanced [...] Directive Advanced Directive Advanced Directive Care Teams Professional Skater Relationship Specialty Start Date End Date William Joseph MD [address] [place] [address] PCP - General Internal Medicine 03/18/12 documented as of this encounter
--- OUTSIDE RECORDS SUMMARY | 2023-01-29 05:05 | External Medical Summary | Summary of Care ---
Author Name Unknown Organization [place] [address] Care Team Providers Care Veterinary Medicine Scientist Name Role Phone William Chavez MD Primary Care Provider + Reason for Visit * Reason Onset Date Comments Medication Refill 09/27/2021 Encounter Details Date Type Department Care Team Description 09/27/2021 Refill General Internal Medicine [facility] 200 [facility] [place], [place] [id number] Brooke Patrick MD 200 [place] [address] Cough Allergies No known active allergiesdocumented as of [...] crush, or chew. 50 Cap 2 10/20/2019 Discontinue d(Refill) documented as of this encounter [...] Used Alcohol Use Standard Drinks/Week Comments Yes 5.171662688497323466 (1 standard drink = 0.6 oz pure [...] Encounter - William Chavez MD - 09/27/2021 12:53 PM EDT Signed Prescriptions: Disp Refills Benzonatate 100 MG Oral Capsule (Tessalon *50 Cap*2 Sig: Take by mouth 1 Capsule 2 times a day as needed for Cough. Do not cut, crush, or chew. Authorizing Provider: WILLIAM CHAVEZ * Telephone Encounter - Rosario Alvarez LPN - 09/27/2021 12:52 PM EDT Pending Prescriptions: Disp Refills Benzonatate 100 MG Oral Capsule (Tessalon*50 Cap*2 Sig: Take by mouth 1 Capsule 2 times a day as needed for Cough. Do not cut, crush, or chew. * Telephone Encounter - Rosario Alvarez LPN - 09/27/2021 12:15 PM EDT Pending Prescriptions: Disp Refills Benzonatate 100 MG Oral Capsule (Tessalon*50 Cap*2 Sig: Take by mouth 1 Capsule 2 times a day as needed for Cough. Do not cut, crush, or chew. 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 ([facility]) M05.79 Mixed hyperlipidemia E78.2 Thyroid nodule 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 Labs: Lab Results Component Value Date/Time CREATININE - [facility] 1.3 (H) 05/04/2016 12:09 PM CREATININE, RANDOM URINE - [facility] 94 08/03/2016 01:51 PM CREATININE-OUTSIDE LAB 1.25 (A) 03/16/2021 12:00 AM CREATININE-OUTSIDE LAB 1.19 (A) 03/16/2021 12:00 AM Lab Results Component Value Date/Time POTASSIUM - [facility] 4.6 05/04/2016 12:09 PM POTASSIUM-OUTSIDE LAB 4.5 03/16/2021 12:00 AM POTASSIUM-OUTSIDE LAB 4.5 03/16/2021 12:00 AM Lab Results Component Value Date/Time TSH - [facility] 0.82 06/24/2013 12:14 PM TSH - OUTSIDE LAB 1.34 10/14/2020 12:00 AM Lab Results Component Value Date/Time LDL (CALCULATED)-OUTSIDE LAB 110 (A) 10/14/2020 12:00 AM LDL (CALCULATED)-OUTSIDE LAB 108 (H) 03/15/2020 12:00 AM LDL CHOLESTEROL (CALCULATED) - [facility] [...] [facility] 10 05/04/2016 12:09 PM ALT-OUTSIDE LAB 13 10/14/2020 12:00 AM Hemoglobin AIC Results: No results found for: HEMOGLOBIN A1C documented in this encounter Plan of Treatment Upcoming Encounters Date Type Specialty Care Team Description 11/08/2021 Office Visit Hematology Oncology South Salas MD 200 [place] [address] 11/10/2021 Office Visit Internal Medicine William Chavez MD 200 [place] [address] 12/27/2021 Office Visit Rheumatology Carlos Alberto Matthews MD [address] [place] [address] Health Maintenance Due Date Last Done Comments FOBT ANNUALLY,AGES 18-90 03/22/2017 03/22/2016, 09/26 Zoster Vaccines (3 of 3) 12/26/2020 10/31/2020, 12/25 Depression Screening, Annual for Pts 12 and Over 02/17/2021 02/18/2020 CKD GFR USE SMARTSET 31145 09/14/202103/16, 03/16/2021, 10/14/2020, Additional history exists BASIC METABOLIC PANEL (BMP) FOR HTN YEARLY 03/16/2022 03/16/2021, 03/16/2021, 10/14/2020, Additional history exists CKD PHOS USE SMARTSET 22372 03/16/202202/25, 03/15/2020, 10/22/2018, Additional history exists CKD HGB USE SMARTSET 21614 05/02/202205/02, 10/14/2020, 11/18/2019, Additional history exists DIABETES [...] as of this encounter Visit Diagnoses Diagnosis Cough documented in this encounter Advance Directives Documents on File Type Date Recorded Patient Flight Crew Time Clerk Expl anation Advanced Directive Advanced Directive Advanced [...] Directive Advanced Directive Advanced Directive Care Teams Veterinary Medicine Scientist Relationship Specialty Start Date End Date William Chavez MD [address] [place] [address] PCP - General Internal Medicine 03/18/12 documented as of this encounter
--- OUTSIDE RECORDS SUMMARY | 2023-01-29 05:05 | External Medical Summary | Summary of Care ---
Author Name Unknown Organization [facility] [address] Care Team Providers Care Endorsement Clerk Name Role Phone William Joseph MD Primary Care Provider + Reason for Visit * Reason Onset Date Comments Outpatient Testing 05/02/2021 Encounter Details Date Type Department Care Team Description 05/02/2021 Telephone Hematology/Oncology [facility] [address] [place] [address] South Salas MD [address] [place] [address] Outpatient Testing Allergies No known active allergiesdocumented [...] Used Alcohol Use Standard Drinks/Week Comments Yes [id number] (1 standard drink = 0.6 oz pure [...] Encounter - Cb Correia CMA - 05/02/2021 2:51 PM EST Serum free light chain order faxed to [employer] (Attn: Khari) at [phone]. * Telephone Encounter - Caroline Tillman RN - 05/02/2021 1:59 PM EST Called Khari and reviewed that the serum free light chains is to be a serum aka blood test and the free kappa and lamda is a 24 hr urine. They did not draw the serum free light chains, so they will need the order re-faxed at this number [phone]. Pt will be returning to [facility] tomorrow with urineso they will draw it then. Cb: Please fax the lab order for serum free light chains to Khari at the above number. Thank you! * Telephone Encounter - Cb Correia CMA - 05/02/2021 1:24 PM EST Khari from [employer] called in regards to the pt's most recent lab orders. Juan R is confusedabout the orders, specifically in regards to the [...] most recent lab orders be re-faxed to [phone]. Khari can be reached at [phone]. documented in this encounter Plan of Treatment Upcoming Encounters Date Type Specialty Care Team Description 05/10/2021 Office Visit Hematology Oncology Eliana LawrenceMARCY [address] [place] [address] 08/14/2021 Office Visit Rheumatology Carlos Alberto Matthews MD [address] [facility] [place] [address] 11/10/2021 Office Visit Internal Medicine William Joseph MD [address] [place], [place] [address] Health Maintenance Due Date Last Done Comments FOBT ANNUALLY,AGES 18-90 03/22/2017 03/22/2016, 09/26 Zoster Vaccines (3 of 3) 12/26/2020 10/31/2020, 12/25 COVID-19 Vaccine (3 - Booster for Pfizer series) 02/03/2021 08/03/2020, 07/13/2020 *DEPRESSION SCREENING,ANNUAL FOR PTS 12 AND OVER 02/23/2021 CKD GFR USE SMARTSET 55312 09/14/202103/16, 03/16/2021, 10/14/2020, Additional history exists CKD HGB USE SMARTSET 68628 10/14/202110/14, 11/18/2019, 10/22/2018, Additional history exists CKD PHOS USE SMARTSET 60185 03/16/202202/25, 03/15/2020, 10/22/2018, Additional history exists DIABETES [...] Documents on File Type Date Recorded Patient Nanoelectronics Engineer Expl anation Advanced Directive Advanced Directive Advanced [...] Directive Advanced Directive Advanced Directive Care Teams Endorsement Clerk Relationship Specialty Start Date End Date William Joseph MD [address] [place] [id number] PCP - General Internal Medicine 03/18/12 documented as of this encounter
--- OUTSIDE RECORDS SUMMARY | 2023-01-29 05:05 | External Medical Summary | Summary of Care ---
Author Name Unknown Organization [place] [address] Care Team Providers Care Snack Bar Attendant Name Role Phone William Chavez MD Primary Care Provider + Reason for Visit * Reason Onset Date Comments Medication Refill 09/28/2021 Encounter Details Date Type Department Care Team Description 09/28/2021 Refill General Internal Medicine [facility] [address] [facility] [place] [address] William Chavez MD [address] [place] [address] Pernicious anemia Allergies No known active allergiesdocumented as of this encounter (statuses as of 09/28/2021) Medications Medication Sig Dispensed Refills Start Date [...] 08/14/2021 Benazepril HCl 5 MG Oral Tablet (Lotensin)Indicati ons: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) Take 1 Tablet by mouth daily. 30 Tablet 5 04/13/2021 Active Benzonatate 100 MG Oral Capsule (Tessalpolo Perlkarlos)Indications :Cough Take by mouth 1 Capsule 2 [...] every month 1 mL 4 09/28/2021 Active Cyanocobalamin 1000 MCG/ML Injection Solution (Cyanocobalamin)In dications:Pernicio us anemia inject 1ml into a large muscle every month 1 mL 4 02/13/2021 Discontinue d(Refill) documented as of this encounter (statuses as of 09/28/2021) Active Problems Problem Noted Date MGUS (monoclonal [...] as of this encounter (statuses as of 09/28/2021) Resolved Problems Problem Noted Date Resolved Date Secondary hyperparathyroidism 08/10/2019 History of rheumatoid arthritis 09/04/2017 08/20/2018 History of rheumatoid arthritis 01/06/2016 07/27/2016 Kidney disease, chronic, stage III (GFR 30-59 ml /min) 08/09/2014 07/30/2017 Overview: Per CKD protocol #1 HTN, goal below 140/90 03/06/201 8 Kidney disease, chronic, stage III (GFR 30-59 ml /min) 03/24/2012 documented as of this encounter (statuses as of 09/28/2021) Immunizations Name Administration Dates Next Due COVID-19 [...] Used Alcohol Use Standard Drinks/Week Comments Yes [id number] (1 standard drink = 0.6 oz pure [...] Telephone Encounter - William Chavez MD - 09/28/2021 11:52 AM EDT Signed Prescriptions: Disp Refills Cyanocobalamin 1000 MCG/ML Injection Solut*1 mL 4 Sig: inject 1ml into a large muscle every month Authorizing Provider: WILLIAM CHAVEZ * Telephone Encounter - Rosario Alvarez LPN - 09/28/2021 11:26 AM EDT Pending Prescriptions: Disp Refills Cyanocobalamin 1000 MCG/ML Injection Solu*1 mL 4 Sig: inject 1ml into a large muscle every month * Telephone Encounter - Rosaroi Alvarez LPN - 09/28/2021 11:24 AM EDT Pending Prescriptions: Disp Refills Cyanocobalamin 1000 MCG/ML Injection Solu*1 mL 4 Sig: inject 1ml into a large muscle every month Last Visit: 05/02/2021 (in office), Visit date not found (telemedicine) Next Visit: 11/10/2021 Last date the medication was ordered: 9.20.21 Patient Active Problem List Diagnosis Code Encounter for therapeutic drug monitoring Z51.81 Pernicious anemia D51.0 Bronchiectasis (HCC) J47.9 Thoracic aortic aneurysm (HCC) I71.2 Benign hypertension with CKD (chronic kidney disease) stage III ([facility]) I12.9, N18.30 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 Bunion, left foot M21.612 Primary osteoarthritis of right hip M16.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 ([facility]) M05.79 Mixed hyperlipidemia E78.2 Thyroid [...] Visit Hematology Oncology [place] Salas MD 200 [facility] [place] [address] 11/10/2021 [facility] 200 [place] [address] 12/27/2021 Office Visit Rheumatology Carlos Alberto Matthews MD [address] [facility] [place] [address] Health Maintenance Due Date Last Done Comments FOBT ANNUALLY,AGES 18-90 03/22/2017 03/22/2016, 09/26 Zoster Vaccines (3 of 3) 12/26/2020 10/31/2020, 12/25 Depression Screening, Annual for Pts 12 and Over 02/17/2021 02/18/2020 CKD GFR USE SMARTSET 14601 09/14/202103/16, 03/16/2021, 10/14/2020, Additional history exists BASIC METABOLIC PANEL (BMP) FOR HTN YEARLY 03/16/2022 03/16/2021, 03/16/2021, 10/14/2020, Additional history exists CKD PHOS USE SMARTSET 14102 03/16/202202/25, 03/15/2020, 10/22/2018, Additional history exists CKD HGB USE SMARTSET 16628 05/02/202205/02, 10/14/2020, 11/18/2019, Additional history exists DIABETES [...] Documents on File Type Date Recorded Patient Nurse Intern Expl anation Advanced Directive Advanced Directive Advanced [...] Directive Advanced Directive Advanced Directive Care Teams Snack Bar Attendant Relationship Specialty Start Date End Date William Chavez MD [address] [place] [address] PCP - General Internal Medicine 03/18/12 documented as of this encounter
--- OUTSIDE RECORDS SUMMARY | 2023-01-29 05:05 | External Medical Summary | Summary of Care ---
Author Name Unknown Organization [place] [address] Care Team Providers Care Dessert Cup Machine Feeder Name Role Phone William Joseph MD Primary Care Provider + Reason for Visit * Reason Comments Follow Up f/u Encounter Details Date Type Department Care Team Description 05/10/2021 Office Visit Hematology/Oncology [facility] [place] [address] [place] [address] Eliana Lawrence CRNP 200 [facility] [place] [address] MGUS (monoclonal gammopathy of unknown significance)* Allergies No known active allergiesdocumented as of this encounter (statuses as of 05/10/2021) Medications Medication Sig Dispensed Refills Start Date End Date Status Cholecalciferol (VITAMIN D3) 50 MCG (1999 UT) Tablet Take 1,000 Units by mouth. Every 2 - 3 days 0 Active benzonatate (TESSALON PERLES) 100 MG CapsuleIndications:C ough Take 1 Cap by mouth 2 times a day as needed for Cough. Do not cut, crush, or chew. 50 Cap 2 10/20/2019 Active Flovent HFA 44 MCG/ACT Inhalation Aerosol (fluticasone)Indicat ions:Bronchiectasis (HCC) INHALE ONE PUFF BY MOUTH TWICE DAILY 10.6 g 5 06/22/2020 Active predniSONE 5 MG Oral Tablet (Deltasone)Indicatio ns:H/O rheumatoid arthritis Take 1 Tab by mouth daily. 30 Tab 5 02/13/2021 Active Cyanocobalamin 1000 MCG/ML Injection Solution (Cyanocobalamin)Yessenia [...] 30 Tablet 5 04/13/2021 Active Fluticasone Propionate 50 MCG/ACT Nasal SuspensionIndication s:Acute maxillary sinusitis, recurrence not specified Administer 2 Sprays into each nostril daily. 16 g 0 05/02/2021 Active documented as of this encounter (statuses as of 05/10/2021) Active Problems Problem Noted Date MGUS (monoclonal [...] as of this encounter (statuses as of 05/10/2021) Resolved Problems Problem Noted Date Resolved Date Secondary hyperparathyroidism 08/10/2019 History of rheumatoid arthritis 09/04/2017 08/20/2018 History of rheumatoid arthritis 01/06/2016 07/27/2016 Kidney disease, chronic, stage III (GFR 30-59 ml /min) 08/09/2014 07/30/2017 Overview: Per CKD protocol #1 HTN, goal below 140/90 8 Kidney disease, chronic, stage III (GFR 30-59 ml /min) 03/24/2012 documented as of this encounter (statuses as of 05/10/2021) Immunizations Name Administration Dates Next Due COVID-19 [...] Used Alcohol Use Standard Drinks/Week Comments Yes [id number] (1 standard drink = 0.6 oz pure [...] Sign Reading Time Taken Comments Blood Pressure 158/80 05/10/2021 1:23 PM EST Pulse 79 05/10/2021 1:23 PM EST Temperature 36.2 C (97.1 F) 05/10/2021 1:23 PM ES T Respiratory Rate 16 05/10/2021 1:23 PM EST Oxygen Saturation 98% 05/10/2021 1:23 PM EST Inhaled Oxygen Concentration - - Weight 76 kg (167 lb 9.6 oz) 05/10/2021 1:23 PM EST Height - - Body Mass Index 27.05 05/02/2021 12:00 PM EST documented in this encounter Progress Notes * MARCY Herrera - 05/10/2021 12:50 PM EST Images from the original note were not included. Hematology/Oncology Outpatient Clinic note [facility] [place] [address] Name: Ignacio Garcia Date: 05/10/2021 CHIEF COMPLAINT: Ignacio Garcia is a 75 year old male patient here today for f/u visit. Patient of Dr. Salas. History from patient chart, my progress note from 11/22/2020, and confirmed with patient. Reason for consult: Abnormal SPEP HPI: 75-year-old male with past medical history significant for hypertension, CKD stage 3, rheumatoid arthritis thyroid nodule was referred to me because of the abnormal SPEP. Patient is otherwise healthyand physically active. He denies any headache, dizziness, blurred vision, chest pain, shortness breath palpitation abdominal pain or distention, bleeding, bruising, nausea, vomiting, hematuria hematochezia, fever, night sweats, weight loss. He denies any new bone pain. Last blood test was done 10/14/2020 and shows WBC count of 7.9 hemoglobin 15.8 and platelet count 330 with normal differential. B12 was 893. Creatinine was 1.3 with normal calcium, LFTs were normal. Serum protein electrophoresis revealed abnormal protein band 1, pattern consistent with acute phase reaction. Beta 2 microglobulin is increased. Immunofixation revealed faint band in IgG lambda cannotbe ruled out from the serum immunofixation. Urine immunofixation also reviewed faint band of kappa light chain. Patient quit smoking 1990. He used to smoke 2 pack per day for many years. He drinks occasionally. Family history is negative for any hematologic oncology problem HISTORY OF PRESENT ILLNESS: Ignacio Garcia is a 75 year old male with a history as outlined above. Currently here for f/u visit today. The pt reports that he currently has sinus congestion. He states this is recurrent and it usually resolves on its own without treatment. No fever, night sweats, lymphadenopathy, unintentional weight loss. His appetite and energy level are good. He struggles with joint pain related to RA. He is not currently on tx for RA. 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 Vitals stable. 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 Employer: [employer] Tobacco Use Smoking status: Former Smoker Packs/day: 2.00 Years: 35.00 Pack years: 70.00 Types: Cigarettes Quit date: 06/25/1990 Years since quittin.8 Smokeless tobacco: Never Used Substance and Sexual [...] file Housing Stability: Not on file Past Surgical History: Procedure Laterality Date DENTAL SURGERY PROCEDURE NEC 1980 REMOVE TONSILS & ADENOIDS, UNDER 12 1954 Family History Problem Relation Age of Onset Other (osteoarthritis [Other]) Mother Hypertension Mother Review of patient's allergies indicates: No Known Allergies Current Outpatient Medications Medication Sig Dispense Refill Cholecalciferol (VITAMIN D3) 50 MCG (2000 UT) Tablet Take 1,000 Units by mouth. Every 2 - 3 days benzonatate (TESSALON PERLES) 100 MG Capsule Take 1 Cap by mouth 2 times a day as needed for Cough. Do not cut, crush, or chew. 50 Cap 2 Flovent HFA 44 MCG/ACT Inhalation Aerosol (fluticasone) INHALE ONE PUFF BY MOUTH TWICE DAILY 10.6 g 5 predniSONE 5 MG Oral Tablet (Deltasone) Take 1 Tab by mouth daily. 30 Tab 5 Cyanocobalamin 1000 MCG/ML Injection Solution (Cyanocobalamin) inject 1ml into a large muscle every month 1 mL 4 amLODIPine Besy-Benazepril HCl 2.5-10 MG Oral Capsule (Lotrel) TAKE ONE CAPSULE BY MOUTH ONE TIME DAILY 30 Capsule 5 Benazepril HCl 5 MG Oral Tablet (Lotensin) Take 1 Tablet by mouth daily. 30 Tablet 5 Fluticasone Propionate 50 MCG/ACT Nasal Suspension Administer 2 Sprays into each nostril daily.16 g 0 No current facility-administered medications for this visit. REVIEW OF SYSTEMS: Performance Status: Normal - ECOG 0 See HPI, otherwise negative. OBJECTIVE: Filed Vitals: 05/10/21 1323 BP: 158/80 Pulse: 79 Resp: 16 Temp: 36.2 C (97.1 F) TempSrc: Infrared SpO2: 98% Weight: 76 kg (167 lb 9.6 oz) Wt Readings from Last 5 Encounters: 05/10/21 76 kg (167 lb 9.6 oz) 05/02/21 75.5 kg (166 lb 6.4 oz) 02/13/21 75.8 kg (167 lb) 01/04/21 74.8 kg (165 lb) 11/22/20 74.4 kg (164 lb) PHYSICAL EXAM: General Appearance: Normal - Healthy appearing patient in no acute distress Skin: Normal- No rashes, lesions or petechiae. HEENT: Normal - No oral or pharyngeal masses, ulceration or thrush noted, no sinus tenderness Lymph Nodes: Normal - No palpable lymph nodes in the neck or supraclavicular areas Lungs/Thorax: Normal - Clear to auscultation Heart: Normal - Regular rate and rhythm, normal S1, S2, no appreciable murmurs, rubs, gallops Pulses/Extremities: Normal - 2+ throughout and symmetrical, no edema b/l Abdomen: Normal - Soft, nontender, bowel sounds present, no appreciable hepatosplenomegaly, no palpable masses Musculoskeletal: Normal - No pain on palpation over bony prominence, no joint or bony deformity Neurologic: Normal - Grossly intact Psyche: No vegetative signs of depression. LABS: 04/2021 at [facility] IMPRESSION: 75-year-old male with past medical history significant for hypertension, CKD stage 3, rheumatoid arthritis, thyroid nodule. Pt was referred because of the abnormal SPEP. Serum protein electrophoresisrevealed abnormal protein band 1 pattern consistent with an acute phase reaction. There is also elevated beta 2 microglobulin level most likely because of the CKD. On immunofixation there was a faintband in IgG lambda. Patient may have a MGUS. Pt has been well. He has some chronic issues w/ sinus congestion. No fever. He also has chronic joint pain related to RA. However, his energy level is good and he remains active. Functional status isgood. Vitals are stable. Reviewed labs -Kidney function reduced at baseline. -Ca+ level is WNL. -H&H are WNL. Serum Immunofixation: A faint band in IgG Lambda cannot be ruled out from the serum. PLAN: Will continue to monitor. Return clinic in 6 months with CBC, CMP, myeloma panel, and 24 hour urine collection for urine electrophoresis and immunofixation with free kappa and lambda. I had a discussion with Ignacio Garcia regarding the plan of care, treatment and other issues. Thirty minutes were spent counseling the patient face to face. The total time spent in the appointment was 35 minutes. MARCY Dumont documented in this encounter Nursing Notes * Cb Correia CMA - 05/10/2021 1:24 PM EST Patient identifed by name and birthdate Do you have any concerns about pain management for today's visit? No Living Will or Advance Directive for Health Care as noted on the problem list. [facility] is a way you can talk to your provider on line through e-mail. Would you like to sign up? I can activate it for you? ALREADY ACTIVE Filed Vitals: 05/10/21 1323 BP: 158/80 Pulse: 79 Resp: 16 Temp: 36.2 C (97.1 F) TempSrc: Infrared SpO2: 98% Weight: 76 kg (167 lb 9.6 oz) Pt noted that he is experiencing some pain attributed to Rheumatoid Arthritis. Pt was concerned about his initial BP on reading on the machine (179/81), so a manual BP was taken after rooming had been completed (158/80). The pt stated that this was still high for him. documented in this encounter Plan of Treatment Upcoming Encounters Date Type Specialty Care Team Description 08/14/2021 Office Visit Rheumatology Carlos Alberto Matthews MD [address] [place] [address] 11/08/2021 Office Visit Hematology Oncology South Salas MD [address] [facility] [place] [address] 11/10/2021 Office Visit Internal Medicine William oJseph MD [address] [place] [address] Scheduled Orders Name Type Priority Associated Diagnoses Orde r Schedule CBC WITH WBC DIFFERENTIAL Lab Routine MGUS (monoclonal gammopathy of unknown significance) Expected: 10/25/2021 (Approximate), Expires: 05/10/2022 COMPREHENSIVE METABOLIC PANEL Lab STAT MGUS (monoclonal gammopathy of unknown significance) Expected: 10/25/2021 (Approximate), Expires: 05/10/2022 PHOSPHORUS Lab Routine MGUS (monoclonal gammopathy of unknown significance) Expected: 10/25/2021 (Approximate), Expires: 05/10/2022 IMMUNOGLOBULIN QUANTITATIVE Lab Routine MGUS (monoclonal gammopathy of unknown significance) Expected: 10/25/2021 (Approximate), Expires: 05/10/2022 SERUM PROTEIN ELECTROPHORESIS REFLEX PROFILE Lab Routine MGUS (monoclonal gammopathy of unknown significance) Expected: 10/25/2021 (Approximate), Expires: 05/10/2022 SERUM FREE LIGHT CHAINS Lab Routine MGUS (monoclonal gammopathy of unknown significance) Expected: 10/25/2021 (Approximate), Expires: 05/10/2022 [id number], SERUM Lab Routine MGUS (monoclonal gammopathy of unknown significance) Expected: 10/25/2021 (Approximate), Expires: 05/10/2022 SERUM IMMUNOFIXATION Lab Routine MGUS (monoclonal gammopathy of unknown significance) Expected: 10/25/2021 (Approximate), Expires: 05/10/2022 LD Lab Routine MGUS (monoclonal gammopathy of unknown significance) Expected: 10/25/2021 (Approximate), Expires: 05/10/2022 URINE IMMUNOFIXATION, BENCE PEREZ PROTEIN, 24 HOUR URINE Lab Routine MGUS (monoclonal gammopathy of unknown significance) Expected: 10/25/2021 (Approximate), Expires: 05/10/2022 Health Maintenance Due Date Last Done Comments FOBT ANNUALLY,AGES 18-90 03/22/2017 03/22/2016, 09/26 Zoster Vaccines (3 of 3) 12/26/2020 10/31/2020, 12/25 COVID-19 Vaccine (3 - Booster for Pfizer series) 02/03/2021 08/03/2020, 07/13/2020 *DEPRESSION SCREENING,ANNUAL FOR PTS 12 AND OVER 02/23/2021 CKD GFR USE SMARTSET 34384 09/14/202103/16, 03/16/2021, 10/14/2020, Additional history exists CKD PHOS USE SMARTSET 07724 03/16/202202/25, 03/15/2020, 10/22/2018, Additional history exists CKD HGB USE SMARTSET 86992 05/02/202205/02, 10/14/2020, 11/18/2019, Additional history exists DIABETES [...] as of this encounter Visit Diagnoses Diagnosis 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
--- OUTSIDE RECORDS SUMMARY | 2023-01-29 05:05 | External Medical Summary | Summary of Care ---
Author Name Unknown Organization [place] [address] Care Team Providers Care Blister Packing Machine Tender Name Role Phone William Joseph MD Primary Care Provider + Reason for Visit * Reason Onset Date Comments Appointment 05/02/2021 Encounter Details Date Type Department Care Team Description 05/02/2021 Telephone General Internal Medicine [facility] [address] [facility] [place] [place] [address] William Joseph MD 200 [place] [address] Appointment Allergies No known active allergiesdocumented as [...] Used Alcohol Use Standard Drinks/Week Comments Yes [id number] (1 standard drink = 0.6 oz pure [...] Miscellaneous Notes * Telephone Encounter - PAULA Waldron - 05/02/2021 2:44 PM EST Called patient back to get scheduled for return appt. Patient has been rescheduled with Karina for 05/10 * Telephone Encounter - PAULA Waldron - 05/02/2021 12:36 PM EST Called and spoke to patient. Patient stated that he could not talk right now and asked for a call later this afternoon * Telephone Encounter - PAULA Weir - 05/02/2021 12:26 PM EST Pls reschedule heme/onc Please advise documented in this encounter Plan of Treatment Upcoming Encounters Date Type Specialty Care Team Description 05/10/2021 Office Visit Hematology Oncology Melinda Eliana FuchsMARCY [address] [place], [place] [address] 08/14/2021 Office Visit Rheumatology Carlos Alberto Matthews MD [address] [place] [address] 11/10/2021 Office Visit Internal Medicine William Joseph MD [address] [place], [place] [address] Health Maintenance Due Date Last Done Comments FOBT ANNUALLY,AGES 18-90 03/22/2017 03/22/2016, 09/26 Zoster Vaccines (3 of 3) 12/26/2020 10/31/2020, 12/25 COVID-19 Vaccine (3 - Booster for Pfizer series) 02/03/2021 08/03/2020, 07/13/2020 *DEPRESSION SCREENING,ANNUAL FOR PTS 12 AND OVER 02/23/2021 CKD GFR USE SMARTSET 70626 09/14/202103/16, 03/16/2021, 10/14/2020, Additional history exists CKD HGB USE SMARTSET 19891 10/14/202110/14, 11/18/2019, 10/22/2018, Additional history exists CKD PHOS USE SMARTSET 55010 03/16/202202/25, 03/15/2020, 10/22/2018, Additional history exists DIABETES [...] Documents on File Type Date Recorded Patient Pool Installer Expl anation Advanced Directive Advanced Directive [...] Directive Advanced Directive Advanced Directive Care Teams Blister Packing Machine Tender Relationship Specialty Start Date End Date William Joseph MD [address] [place] [address] PCP - General Internal Medicine 03/18/12 documented as of this encounter
--- OUTSIDE RECORDS SUMMARY | 2023-01-29 05:05 | External Medical Summary | Summary of Care ---
Author Name Unknown Organization [place] [address] Care Team Providers Care Electronic News Gathering Editor Name Role Phone William Joseph MD Primary Care Provider + Reason for Visit * Reason Onset Date Comments Outpatient Testing 05/02/2021 Encounter Details Date Type Department Care Team Description 05/02/2021 Telephone Hematology/Oncology [facility] [address] [place] [address] [place] Salas MD [address] [place] [address] Outpatient Testing Allergies No known active allergiesdocumented [...] Used Alcohol Use Standard Drinks/Week Comments Yes [id number] (1 standard drink = 0.6 oz pure [...] need the order re-faxed at this number [phone]. Pt will be returning to [facility] tomorrow with urineso they will draw it then. Cb: Please fax the lab order for serum free light chains to [facility] at the above number. Thank you! * Telephone Encounter - Cb Correia CMA - 05/02/2021 1:24 PM EST Lex from [facility] called in regards to the pt's [...] most recent lab orders be re-faxed to [phone]. [facility]ari can be reached at [phone]. documented in this encounter Plan of Treatment Upcoming Encounters Date Type Specialty Care Team Description 08/14/2021 Office Visit Rheumatology Carlos Alberto Matthews MD [address] [place] [address], [place] [address] 11/10/2021 Office Visit Internal Medicine [facility], William Villanueva MD [address] [place] [address] Health Maintenance Due Date Last Done Comments FOBT ANNUALLY,AGES 18-90 03/22/2017 03/22/2016, 09/26 Zoster Vaccines (3 of 3) 12/26/2020 10/31/2020, 12/25 COVID-19 Vaccine (3 - Booster for Pfizer series) 02/03/2021 08/03/2020, 07/13/2020 *DEPRESSION SCREENING,ANNUAL FOR PTS 12 AND OVER 02/23/2021 CKD GFR USE SMARTSET 22639 09/14/202103/16, 03/16/2021, 10/14/2020, Additional history exists CKD HGB USE SMARTSET 97925 10/14/202110/14, 11/18/2019, 10/22/2018, Additional history exists CKD PHOS USE SMARTSET 44204 03/16/202202/25, 03/15/2020, 10/22/2018, Additional history exists DIABETES [...] Documents on File Type Date Recorded Patient Architectural Associate Expl anation Advanced Directive Advanced Directive Advanced [...] Directive Advanced Directive Advanced Directive Care Teams Electronic News Gathering Editor Relationship Specialty Start Date End Date William Joseph MD [address] [place] [address] PCP - General Internal Medicine 03/18/12 documented as of this encounter
--- OUTSIDE RECORDS SUMMARY | 2023-01-29 05:05 | External Medical Summary | Summary of Care ---
Author Name Unknown Organization [place] [address] Care Team Providers Care Speedometer Inspector Name Role Phone William Joseph MD Primary Care Provider + Reason for Visit * Reason Comments Rheum Follow Up follow up Encounter Details Date Type Department Care Team Description 08/14/2021 Office Visit Rheumatology [facility] [address] [employer] [place] [address] Harry Brooks MD [address] [place] [address] Rheumatoid arthritis involving multiple sites with positive rheumatoid factor (HCC)*; Benign hypertension with CKD (chronic kidney disease) stage III ([facility]); Bronchiectasis without complication ([facility]) Allergies No known active allergiesdocumented as of this encounter (statuses as of 08/14/2021) Medications Medication Sig Dispensed Refills Start Date End Date Status Cholecalciferol (VITAMIN D3) 50 MCG (1999) Tablet Take 1,000 Units by mouth. Every 2 - 3 days 0 Active benzonatate (TESSALON PERLES) 100 MG CapsuleIndications :Cough Take 1 Cap by mouth 2 times a day as needed for Cough. Do not cut, crush, or chew. 50 Cap 2 10/20/2019 Active Additional Information Patient not taking. Reported on 08/14/2021 Flovent HFA 44 MCG/ACT Inhalation Aerosol (fluticasone)Indic ations:Bronchiecta sis (HCC) INHALE ONE PUFF BY MOUTH TWICE DAILY 10.6 g 5 06/22/2020 Active predniSONE 5 MG Oral Tablet (Deltasone)Indicat [...] 04/13/2021 Active Fluticasone Propionate 50 MCG/ACT Nasal SuspensionIndicati ons:Acute maxillary sinusitis, recurrence not specified Administer 2 Sprays into each nostril daily. 16 g 0 05/02/2021 2 Discontinue d(Medicatio n List Clean Up) Hospital, Clinic, or Other Facility Administered Medication Ordered Dose Route Frequency Start Date End Date Status Lidocaine 2 % (PF) inj 40 mgIndications:Rheumatoid arthritis involving multiple sites with positive rheumatoid factor (HCC) 40 mg IX ONCE 08/14/2021 08/14/2021 Ended Triamcinolone Acetonide (Kenalog) 40 MG/ML inj 40 mgIndications:Rheumatoid arthritis involving multiple sites with positive rheumatoid factor (HCC) 40 mg IX ONCE 08/14/2021 08/14/2021 Ended documented as of this encounter (statuses as of 08/14/2021) Active Problems Problem Noted Date MGUS (monoclonal [...] as of this encounter (statuses as of 08/14/2021) Resolved Problems Problem Noted Date Resolved Date Secondary hyperparathyroidism 08/10/2019 History of rheumatoid arthritis 09/04/2017 08/20/2018 History of rheumatoid arthritis 01/06/2016 07/27/2016 Kidney disease, chronic, stage III (GFR 30-59 ml /min) 08/09/2014 07/30/2017 Overview: Per CKD protocol #1 HTN, goal below 140/90 8 Kidney disease, chronic, stage III (GFR 30-59 ml /min) 03/24/2012 documented as of this encounter (statuses as of 08/14/2021) Immunizations Name Administration Dates Next Due COVID-19 mRNA, LNP-s, No Pre serve, 2-Dose Series (Codewars) 03/01/2021,08/03/2020,07/13/2020 Pneumococcal Conjugate Vacc, 13 Valent (Prevnar) [...] Used Alcohol Use Standard Drinks/Week Comments Yes [id number] (1 standard drink = 0.6 oz pure [...] Sign Reading Time Taken Comments Blood Pressure 142/86 08/14/2021 11:21 AM EDT Pulse - - Temperature 36.7 C (98 F) 08/14/2021 11:21 AM EDT Respiratory Rate - - Oxygen Saturation - - Inhaled Oxygen Concentration - - Weight 75.4 kg (166 lb 4.8 oz) 08/14/2021 11:21 AM EDT Height - - Body Mass Index 26.84 05/02/2021 12:00 PM EST documented in this encounter Progress Notes * Harry Brooks MD - 08/14/2021 12:18 PM EDT Progress Notes Today's Visit Note 08/14/2021 Harry Brooks MD Assessment Diagnosis Comment (M05.79) Rheumatoid arthritis involving multiple sites with positive rheumatoid factor (HCC) (primary encounter diagnosis) (I12.9, N18.30) 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) (J47.9) Bronchiectasis without complication (HCC) Comment discussed aspiration and injection of the right knee, he agreed and procedure note is below. Did aspirate inflammatory fluid. Discussed potential treatment options including Plaquenil versus TNF inhibitors. Will update labs. He will update me and let me know which treatment he wants to pursue. Plan 1. see procedure note listed separately 2. lab work ordered and slips given to him 3. consider Humira versus Plaquenil 4. prednisone as needed 5. return to clinic in 4-5 months History "Mr. Garcia is a 76 year old man last seen in Rheumatology today (08-14-21). He has h/o Rheumatoid arthritis involving multiple sites with positive rheumatoid factor (HCC), Mixed hyperlipidemia, 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), Bronchiectasis (HCC), Thyroid nodule, MGUS (monoclonal gammopathy of unknown significance), Pernicious anemia, and Bunion, left foot." Temporary History he uses prednisone as needed and seldom uses it. he is dealing with his right knee again. he got a solid 4 months of relief from the knee aspiration and injection. the last 2 months he has increasingpain and stiffness. it is causing him to walk oddly as well. would like an aspiration and injectiontoday. his breathing is stable. always ahs congestion and coughing. He wonders about treatment for his RA ago and either with a biologic or oral therapy Permanent History diagnosed with RA in 2001 but now burnt out, off DMARD therapy Condition Summary Date Description 05/10/2021 HEM/ONC [facility] with MARCY Lawrence (MGUS (monoclonal gammopathy of unknown significance)) 05/02/2021 GEN INT MED [facility] POD3 with Dr. Joseph (Acute maxillary sinusitis, recurrencenot specified) 02/13/2021 RHEUMATOLOGY [facility] with Dr. Brooks (Rheumatoid arthritis involving multiple sites with positive rheumatoid factor (HCC)) Review of Systems (ROS) ROS Symptoms General none HEENT none MS/Neuro joint pain and swelling Skin none Cardiopulmonary ANDERSEN, cough Gastrointestinal none Genitourinary none Medications Rheumatology Meds Other Meds PREDNISONE 5 MG Take 1 Tab by mouth daily. AMLODIPINE BESY-BENAZEPRIL HCL 2.5-10 MG OR CAPS TAKE ONE CAPSULE BY MOUTH ONE TIME DAILY BENAZEPRIL HCL 5 MG OR TABS Take 1 Tablet by mouth daily. BENZONATATE 100 MG OR CAPS Take 1 Cap by mouth 2 times a day as needed for Cough. Do not cut, crush, or chew. CYANOCOBALAMIN 1000 MCG/ML IJ SOLN inject 1ml into a large muscle every month FLOVENT HFA 44 MCG/ACT IN AERO INHALE ONE PUFF BY MOUTH TWICE DAILY VITAMIN D3 50 MCG (2000 UT) OR TABS Take 1,000 Units by mouth. 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 Does have some trace synovitis PIP 2 through 5 left hand with mild tenderness Neck supple, no masses, JVD, or thyromegaly Lymph Nodes no lymphadenopathy Heart regular rate and rhythm, no murmurs or rubs Lungs coarse breath sounds throughout without wheezing Abdomen soft, normal bowel sounds, no masses or organomegaly Monitoring Labs Measure Today Previous HGB g/dl 15.8 10/20/2020 eGFR mL/min/1.73 M2 59 04/07/2021 Prot/Creat Ratio mg/G 195 04/07/2021 ALT U/L 13 10/20/2020 Outcome Measures Measure Today Previous MDHAQ 3.33 02/13/2021 Pain 7 02/13/2021 Fatigue 3 02/13/2021 Stiffness 0 02/13/2021 Patient Global 2 08/14/2021 6 02/13/2021 Rapid3 16.33 02/13/2021 Tender Score 5 08/14/2021 1 02/13/2021 Swollen Score 5 08/14/2021 1 02/13/2021 Physician Global Score 3 08/14/2021 3 02/13/2021 Patient Global Score 2 08/14/2021 6 02/13/2021 CDAI 15 08/14/2021 11 02/13/2021 Care Gaps As Of 08/13/2021 Physician open RA on DMARD RA, Not [...] if on Biologic TB Testing Not Applicable closed Flu Vaccine Flu Vaccine Completed closed [...] treatment? Decision Escalate Signature HARRY BROOKS * Harry Brooks MD - 08/14/2021 11:56 AM EDT Associated Order(s): LG Joint Inj/Arthro: R knee Post-Procedure Diagnose(s): Rheumatoid arthritis involving multiple sites with positive rheumatoid factor (HCC) Ignacio Garcia is a 76 year old male patient. ICD-10-CM 1. Rheumatoid arthritis involving multiple sites with positive rheumatoid factor (HCC) M05.79 2. Benign hypertension with CKD (chronic kidney disease) stage III ([facility]) I12.9 N18.30 3. Bronchiectasis without complication ([facility]) J47.9 Past Medical History: Diagnosis Date Bronchiectasis ([facility]) 12/08/2013 Encounter for long-term (current) use of other medications 07/27/2010 History of rheumatoid arthritis 01/06/2016 HTN, goal below 140/90 Pernicious anemia 08/24/2010 Thyroid nodule 08/10/2019 Blood pressure 142/86, temperature 36.7 C (98 F), temperature source Infrared , weight 75.4 kg (166 lb 4.8 oz). LG Joint Inj/Arthro: R knee on 08/14/2021 11:56 AM Indications: pain and joint swelling Details: 20 G needle, lateral approach Medications: (1ml of 2% lidocaine and 40mg of kenalog) Aspirate: 26 mL serous Outcome: tolerated well, no immediate complications Procedure, treatment alternatives, risks and benefits explained, specific risks discussed. Consent was given by the patient. Immediately prior to procedure a time out was called to verify the correctpatient, procedure, equipment, lead performance support analyst and site/side marked as required. Patient was prepped and draped in the usual sterile fashion. Harry Brooks MD 08/14/2021 documented in this encounter Nursing Notes * Bibiana Carr LPN - 08/14/2021 11:20 AM EDT Chief Complaint Patient presents with Rheum Follow Up follow up Interested in getting Right knee drained and injected documented in this encounter Plan of Treatment Upcoming Encounters Date Type Specialty Care Team Description 09/21/2021 Office Visit Nephrology Chanel Hernandez PA-C [address] [place] [address] 11/08/2021 Office Visit Hematology Oncology [place] MD [address] [place] [address] 11/10/2021 Office Visit Internal Medicine William Joseph MD [address] [place] [address] 12/27/2021 Office Visit Rheumatology Harry Brooks MD [address] [place] [address] Scheduled Orders Name Type Priority Associated Diagnoses Orde r Schedule QUANTIFERON TB GOLD PLUS Lab Routine Rheumatoid arthritis involving multiple sites with positive rheumatoid factor (HCC) Ordered: 08/14/2021 HEPATITIS B SURFACE ANTIBODY Lab Routine Rheumatoid arthritis involving multiple sites with positive rheumatoid factor (HCC) Ordered: 08/14/2021 Health Maintenance Due Date Last Done Comments FOBT ANNUALLY,AGES 18-90 03/22/2017 03/22/2016, 09/26 Zoster Vaccines (3 of 3) 12/26/2020 10/31/2020, 12/25 Depression Screening, Annual for Pts 12 and Over 02/17/2021 02/18/2020 CKD GFR USE SMARTSET 64860 09/14/2021 10/21 /2021, 03/16/2021, 10/14/2020, Additional history exists BASIC METABOLIC PANEL (BMP) FOR HTN YEARLY 03/16/2022 03/16/2021, 03/16/2021, 10/14/2020, Additional history exists CKD PHOS USE SMARTSET 33675 03/16/202202/25, 03/15/2020, 10/22/2018, Additional history exists CKD HGB USE SMARTSET 52313 05/02/202205/02, 10/14/2020, 11/18/2019, Additional history exists DIABETES [...] Procedure Name Priority Date/Time Associated Diagnosis Comments MA ARTHROCENTESIS ASPIR&/INJ MAJOR JT/BURSA W/O US Routine 08/14/2021 11:56 AM EDT Rheumatoid arthritis involving multiple sites with positive rheumatoid factor (HCC) documented in this encounter Results * MA ARTHROCENTESIS ASPIR&/INJ MAJOR JT/BURSA W/O US (08/14/2021 11:56 AM EDT) Narrative Harry Brooks MD - 08/14/2021 11:56 AM EDT Harry Brooks MD 08/14/2021 12:19 PM LG Joint Inj/Arthro: R knee on 08/14/2021 11:56 AM Indications: pain and joint swelling Details: 20 G needle, lateral approach Medications: (1ml of 2% lidocaine and 40mg of kenalog) Aspirate: 26 mL serous Outcome: tolerated well, no immediate complications Procedure, treatment alternatives, risks and benefits explained, specific risks discussed. Consent was given by the patient. Immediately prior to procedure a time out was called to verify the correct patient, procedure, equipment, lead performance support analyst and site/side marked as required. Patient was prepped and draped in the usual sterile fashion. documented in this encounter Visit Diagnoses Diagnosis Rheumatoid arthritis involving multiple sites with positive rheumatoid factor (HCC)- Primary 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, or unspecified Bronchiectasis without complication (HCC) Bronchiectasis without acute exacerbation documented in this encounter Administered Medications Inactive Administered Medications - up to 3 most recent administrations Medication Order MAR Action Action Date Dose Rate Site Lidocaine 2 % (PF) inj 40 mg 40 mg, Intra-Articular, ONCE, On Sat08/14/21 at 1230, For 1 dose Given 08/14/2021 11:55 AM EDT 40 mg Knee Right Triamcinolone Acetonide (Kenalog) 40 MG/ML inj 40 mg 40 mg, Intra-Articular, ONCE, On Sat08/14/21 at 1230, For 1 dose Given 08/14/2021 11:56 AM EDT 40 mg documented in this encounter Advance Directives Documents on File Type Date Recorded Patient Bulk Pallet Builder Expl anation Advanced Directive Advanced Directive Advanced [...] Directive Advanced Directive Advanced Directive Care Teams Speedometer Inspector Relationship Specialty Start Date End Date William Joseph MD [address] [place] [address] [place] [address] PCP - General Internal Medicine 03/18/12 documented as of this encounter
--- OUTSIDE RECORDS SUMMARY | 2023-01-29 05:06 | External Medical Summary | Summary of Care ---
Author Name Unknown Organization [place] [address] Care Team Providers Care Helper/Driver Name Role Phone William Joseph MD Primary Care Provider + Reason for Visit * Reason Onset Date Comments FYI 01/29/2021 Encounter Details Date Type Department Care Team Description 01/29/2021 Telephone [address] [facility] [place] [id number] Lisbeth Ward MD 200 [place] [address] [phone] FYI Allergies No Known Active Allergiesdocumented as of this encounter (statuses as of 02/03/2021) Medications Medication Sig Dispensed Refills Start Date End Date Status Cholecalciferol (VITAMIN D3) 50 MCG (1999 UT) Tablet Take 1,000 Units by mouth. Every 2 - 3 days 0 Active benzonatate (TESSALON PERLES) 100 MG CapsuleIndications:Co ugh Take 1 Cap by mouth 2 times a day as needed for Cough. Do not cut, crush, or chew. 50 Cap 2 10/20/2019 Active predniSONE (DELTASONE) 5 MG TabletIndications:H/O rheumatoid arthritis Take 1 Tab by mouth daily. 30 Tab 5 10/20/2019 Active Additional Information Patient taking differently: 10-15 mg Oral DAILY PRN, RA Flare up, Reported on 02/18/2020 Flovent HFA 44 MCG/ACT Inhalation Aerosol (fluticasone)Indicati ons:Bronchiectasis (HCC) INHALE ONE PUFF BY MOUTH TWICE DAILY 10.6 g 5 06/22/2020 Active Cyanocobalamin 1000 MCG/ML Injection Solution (Cyanocobalamin)Indic ations:Pernicious anemia inject 1ml into a large muscle every month 1 mL 4 08/01/2020 Active amLODIPine Besy-Benazepril HCl 2.5-10 MG Oral Capsule (Lotrel)Indications:B enign hypertension 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) Take 1 Cap by mouth daily. 30 Cap 5 09/21/2020 Active documented as of this encounter (statuses as of 02/03/2021) Active Problems Problem Noted Date MGUS (monoclonal [...] as of this encounter (statuses as of 02/03/2021) Resolved Problems Problem Noted Date Resolved Date Secondary hyperparathyroidism 08/10/2019 History of rheumatoid arthritis 09/04/2017 08/20/2018 History of rheumatoid arthritis 01/06/2016 07/27/2016 Kidney disease, chronic, stage III (GFR 30-59 ml /min) 08/09/2014 07/30/2017 Overview: Per CKD protocol #1 HTN, goal below 140/90 8 Kidney disease, chronic, stage III (GFR 30-59 ml /min) 03/24/2012 documented as of this encounter (statuses as of 02/03/2021) Immunizations Name Administration Dates Next Due COVID-19 mRNA, LNP-s, No Pre serve, 2-Dose Series (Pfizer) 08/03/2020,07/13/2020 Pneumococcal Conjugate Vacc, 13 Valent (Prevnar) 07/13/2015 Pneumococcal Polysaccharide PPV23 (Pneumovax) 06/08/2013,03/19/2013(Deferred: Patient Refused - not interested) Seasonal Influenza, Quadriva lent, No Preserve, 6 [...] 06/25 Smokeless Tobacco: Never Used Alcohol Use Drinks/Week oz/Week Comments Yes 7 Mixed drink(s) containing 1.5 shots of alcohol 5.8 occas sional Food Insecurity Answer Date Recorded Within the past 12 months, y ou worried that your food would run out before you got money to buy more. Never true Within the past 12 months, t he food you bought just didn't last and you didn't have money to get more. Never true Sex Assigned at Date Recorded Male 12/17/2018 2:08 PM E DT Job Start Date Occupation Industry Not on file Not on file Not on file documented as of this encounter Miscellaneous Notes * Telephone Encounter - Raegan Stephens LPN - 02/03/2021 2:53 PM EDT Patient called and made aware that b/p at goal * Telephone Encounter - Lisbeth Ward MD - 02/03/2021 11:22 AM EDT At goal; cont same * Telephone Encounter - Raegan Stephens LPN - 02/01/2021 10:26 AM EDT Patient called and provided home b/p readings. Please see below: 01/18/2021 124/74 p-62 01/21/2021 126/72 p-65 01/22/2021 133/75 p-62 01/25/2021 132/72 p-62 01/26/2021 131/71 p-63 01/28/2021 130/73 p-62 * Telephone Encounter - Lisbeth Ward MD - 01/29/2021 11:20 AM EDT pls reach out to pt for formal home bp log w/ HR x 7-10 days documented in this encounter Plan of Treatment Upcoming Encounters Date Type Specialty Care Team Description 02/13/2021 Office Visit Rheumatology Carlos Alberto Matthews MD [address] [place] [address] [phone] 03/27/2021 Office Visit Hematology Oncology [place] MD [address] [place] [address] [phone] 05/02/2021 Office Visit Internal Medicine William Joseph MD [address] [place] [address] [phone] Health Maintenance Due Date Last Done Comments FOBT ANNUALLY,AGES 18-90 03/22/2017 03/22/2016, 09/26 Zoster Vaccines (3 of 3) 12/26/2020 10/31/2020, 12/25 Influenza Vaccine (FLU shot) (#1) 2021 03/15/2020, 03/24/2019, 05/22/2018, Additional history exists CKD PHOS USE SMARTSET 21954 03/15/202102/252020, 10/22/2018, 05/04/2016 CKD GFR USE SMARTSET 11651 04/16/202110/14, 03/15/2020, 11/18/2019, Additional history exists CKD HGB USE SMARTSET 03392 10/14/202110/14, 11/18/2019, 10/22/2018, Additional history exists DIABETES SCREEN EVERY 3 YRS-AGE 45 AND ABOVE 10/15/2023 10/14/2020, 03/15/2020, 11/18/2019, Additional history exists DTaP,Tdap,and Td Vaccines (2 - Td) 01/10/2025 01/10/2015 Pneumococcal Vaccine: 65+ Years Completed 07/13/2015, 06/08/2013 COVID-19 Vaccine Completed 08/03/2020, 07/13/2020 MENINGOCOCCAL (MENACTRA/MENVEO) Aged Out No longer eligible based on patient's age to complete this topic documented as of this encounter Implants Not on filedocumented as of this encounter Advance Directives Documents on File Type Date Recorded Patient Principle Industrial Hygienist Expl anation Advanced Directive Advanced Directive Advanced Directive Advanced Directive Advanced Directive Advanced Directive Advanced Directive Advanced Directive Advanced Directive Advanced Directive Advanced Directive Advanced Directive Advanced Directive Advanced Directive Advanced Directive Advanced Directive Advanced Directive Advanced Directive Advanced Directive Advanced Directive Advanced Directive Advanced Directive Advanced Directive Advanced Directive Advanced Directive Advanced Directive Advanced Directive
--- OUTSIDE RECORDS SUMMARY | 2023-01-29 05:06 | External Medical Summary | Summary of Care ---
Author Name Unknown Organization [place] [address] Care Team Providers Care Director Sales Name Role Phone William Joseph MD Primary Care Provider + Encounter Details Date Type Department Care Team Description 03/17/2021 Orders Only General Internal Medicine [facility] [place] 200 [facility] [place] [id number] William Joseph MD 200 [facility] [place] [phone] Allergies No Known Active Allergiesdocumented as of this encounter (statuses as of 03/17/2021) Medications Medication Sig Dispensed Refills Start Date End Date Status Cholecalciferol (VITAMIN D3) 50 MCG (1999) Tablet Take 1,000 Units by mouth. Every 2 - 3 days 0 Active benzonatate (TESSALON PERLES) 100 MG CapsuleIndications:Coug h Take 1 Cap by mouth 2 times a day as needed for Cough. Do not cut, crush, or chew. 50 Cap 2 10/20/2019 Active Flovent HFA 44 MCG/ACT Inhalation Aerosol (fluticasone)Indication s:Bronchiectasis (HCC) INHALE ONE PUFF BY MOUTH TWICE DAILY 10.6 g 5 06/22/2020 Active amLODIPine Besy-Benazepril HCl 2.5-10 MG Oral Capsule (Lotrel)Indications:Marquez ign hypertension 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) Take 1 Cap by mouth daily. 30 Cap 5 09/21/2020 Active predniSONE 5 MG Oral Tablet (Deltasone)Indications: H/O rheumatoid arthritis Take 1 Tab by mouth daily. 30 Tab 5 02/13/2021 Active Cyanocobalamin 1000 MCG/ML Injection Solution (Cyanocobalamin)Indicat ions:Pernicious anemia inject 1ml into a large muscle every month 1 mL 4 02/13/2021 Active documented as of this encounter (statuses as of 03/17/2021) Active Problems Problem Noted Date MGUS (monoclonal [...] as of this encounter (statuses as of 03/17/2021) Resolved Problems Problem Noted Date Resolved Date Secondary hyperparathyroidism 08/10/2019 History of rheumatoid arthritis 09/04/2017 08/20/2018 History of rheumatoid arthritis 01/06/2016 07/27/2016 Kidney disease, chronic, stage III (GFR 30-59 ml /min) 08/09/2014 07/30/2017 Overview: Per CKD protocol #1 HTN, goal below 140/90 8 Kidney disease, chronic, stage III (GFR 30-59 ml /min) 03/24/2012 documented as of this encounter (statuses as of 03/17/2021) Immunizations Name Administration Dates Next Due COVID-19 [...] Encounters Date Type Specialty Care Team Description 03/27/2021 Office Visit Hematology Oncology [place] MD 200 [facility] [address] [phone] 05/02/2021 Office Visit Internal Medicine William Joseph MD 200 [place] [address] [phone] 08/14/2021 Office Visit Rheumatology Carlos Alberto Matthews MD [address] [facility] [place] [place] [address] [phone] Health Maintenance Due Date Last Done Comments FOBT ANNUALLY,AGES 18-90 03/22/2017 03/22/2016, 09/26 Zoster Vaccines (3 of 3) 12/26/2020 10/31/2020, 12/25 Influenza Vaccine (FLU shot) (#1) 2021 03/15/2020, 03/24/2019, 05/22/2018, Additional history exists COVID-19 Vaccine (3 - Pfizer booster) 02/03/2021 08/03/2020, 07/13/2020 *DEPRESSION SCREENING,ANNUAL FOR PTS 12 AND OVER 02/23/2021 CKD PHOS USE SMARTSET 66358 03/15/202102/25, 10/22/2018, 05/04/2016 CKD GFR USE SMARTSET 39716 04/16/202103/16, 10/14/2020, 03/15/2020, Additional history exists CKD HGB USE SMARTSET 67709 10/14/202110/14, 11/18/2019, 10/22/2018, Additional history exists DIABETES SCREEN EVERY 3 YRS-AGE 45 AND ABOVE 10/15/2023 03/16/2021, 10/14/2020, 03/15/2020, Additional history exists DTaP,Tdap,and Td Vaccines (2 - Td) 01/10/2025 01/10/2015 Pneumococcal Vaccine: 65+ Years Completed 07/13/2015, 06/08/2013 MENINGOCOCCAL (MENACTRA/MENVEO) Aged Out No longer eligible based on patient's age to complete this topic documented as of this encounter Implants Not on filedocumented as of this encounter Advance Directives Documents on File Type Date Recorded Patient Hoof And Shoe Inspector Expl anation Advanced Directive Advanced Directive Advanced [...]
--- OUTSIDE RECORDS SUMMARY | 2023-01-29 05:06 | External Medical Summary | Summary of Care ---
Author Name Unknown Organization [place] [address] Care Team Providers Care Ticketing Clerk Name Role Phone William Joseph MD Primary Care Provider + Reason for Visit * Reason Onset Date Comments Medication Refill 04/01/2021 Encounter Details Date Type Department Care Team Description 04/01/2021 Refill General Internal Medicine [facility] 200 [facility] [place] [address] William Joseph MD [address] [place] [address] Benign hypertension with CKD (chronic kidney disease) stage III ([facility]) Allergies No known active allergiesdocumented as of this encounter (statuses as of 04/03/2021) Medications Medication Sig Dispensed Refills Start Date [...] by mouth daily. 30 Cap 5 09/21/2020 04/03/2021 Discontinued documented as of this encounter (statuses as of 04/03/2021) Active Problems Problem Noted Date MGUS (monoclonal [...] as of this encounter (statuses as of 04/03/2021) Resolved Problems Problem Noted Date Resolved Date Secondary hyperparathyroidism 08/10/2019 History of rheumatoid arthritis 09/04/2017 08/20/2018 History of rheumatoid arthritis 01/06/2016 07/27/2016 Kidney disease, chronic, stage III (GFR 30-59 ml /min) 08/09/2014 07/30/2017 Overview: Per CKD protocol #1 HTN, goal below 140/90 8 Kidney disease, chronic, stage III (GFR 30-59 ml /min) 03/24/2012 documented as of this encounter (statuses as of 04/03/2021) Immunizations Name Administration Dates Next Due COVID-19 [...] Used Alcohol Use Standard Drinks/Week Comments Yes 5.331480772041886561 (1 standard drink = 0.6 oz pure alcohol) occassional Alcohol Habits Answer Date Recorded How often do you have a drink containing alcohol ? Not asked How many drinks containing a lcohol do you have on a typical day when you are drinking? Not asked How often do you have six or more drinks on one occasion? Not asked Comment: occassional 07/30/2017 Sex Assigned at Date Recorded Male 12/17/2018 2:08 PM E DT Job Start Date Occupation Industry Not on file Not on file Not on file documented as of this encounter Plan of Treatment Upcoming Encounters Date Type Specialty Care Team Description 05/02/2021 Office Visit Internal Medicine William Joseph MD [address] [facility] [place] [address] 08/14/2021 Office Visit Rheumatology Carlos Alberto Matthews MD [address] [place] [address] Health Maintenance Due Date Last Done Comments FOBT ANNUALLY,AGES 18-90 03/22/2017 03/22/2016, 09/26 Zoster Vaccines (3 of 3) 12/26/2020 10/31/2020, 12/25 Influenza Vaccine (FLU shot) (#1) 2021 03/15/2020, 03/24/2019, 05/22/2018, Additional history exists COVID-19 Vaccine (3 - Pfizer booster) 02/03/2021 08/03/2020, 07/13/2020 *DEPRESSION SCREENING,ANNUAL FOR PTS 12 AND OVER 02/23/2021 CKD PHOS USE SMARTSET 25335 03/15/202102/25, 10/22/2018, 05/04/2016 CKD GFR USE SMARTSET 52689 09/14/202103/16, 10/14/2020, 03/15/2020, Additional history exists CKD HGB USE SMARTSET 82666 10/14/202110/14, 11/18/2019, 10/22/2018, Additional history exists DIABETES SCREEN EVERY 3 YRS-AGE 45 AND ABOVE 03/16/2024 03/16/2021, 10/14/2020, 03/15/2020, Additional history exists DTaP,Tdap,and [...] Documents on File Type Date Recorded Patient Business Development Representative Expl anation Advanced Directive Advanced Directive Advanced [...] Directive Advanced Directive Advanced Directive Care Teams Ticketing Clerk Relationship Specialty Start Date End Date William Joseph MD [address] [facility], [place] [phone] PCP - General Internal Medicine 03/18/12 documented as of this encounter
--- OUTSIDE RECORDS SUMMARY | 2023-01-29 05:06 | External Medical Summary | Summary of Care ---
Author Name Unknown Organization [place] [address] Care Team Providers Care Tractor Sweeper Operator Name Role Phone William Joseph MD Primary Care Provider + Reason for Visit * Reason Onset Date Comments Appointment 05/02/2021 Encounter Details Date Type Department Care Team Description 05/02/2021 Telephone General Internal Medicine [facility] 200 [place] [address] William Joseph MD [address] [place] [address] Appointment Allergies No known active allergiesdocumented as [...] Used Alcohol Use Standard Drinks/Week Comments Yes 5.045137754757589599 (1 standard drink = 0.6 oz pure [...] Visit Rheumatology Carlos Alberto Matthews MD [address] [place] [address] 11/10/2021 Office Visit Internal Medicine William Joseph MD [address] [facility] [place] [place] [address] Health Maintenance Due Date Last Done Comments FOBT ANNUALLY,AGES 18-90 03/22/2017 03/22/2016, 09/26 Zoster Vaccines (3 of 3) 12/26/2020 10/31/2020, 12/25 COVID-19 Vaccine (3 - Booster for Pfizer series) 02/03/2021 08/03/2020, 07/13/2020 *DEPRESSION SCREENING,ANNUAL FOR PTS 12 AND OVER 02/23/2021 CKD GFR USE SMARTSET 48179 09/14/202103/16, 03/16/2021, 10/14/2020, Additional history exists CKD HGB USE SMARTSET 62169 10/14/202110/14, 11/18/2019, 10/22/2018, Additional history exists CKD PHOS USE SMARTSET 09761 03/16/202202/25, 03/15/2020, 10/22/2018, Additional history exists DIABETES [...] Documents on File Type Date Recorded Patient Tar Processing Technician Expl anation Advanced Directive Advanced Directive Advanced [...] Directive Advanced Directive Advanced Directive Care Teams Tractor Sweeper Operator Relationship Specialty Start Date End Date William Joseph MD [address] [place] [address] PCP - General Internal Medicine 03/18/12 documented as of this encounter
--- OUTSIDE RECORDS SUMMARY | 2023-01-29 05:06 | External Medical Summary | Summary of Care ---
Author Name Unknown Organization [place] [address] Care Team Providers Care Research Biologist Name Role Phone William Joseph MD Primary Care Provider + Reason for Visit * Reason Onset Date Comments Appointment 05/02/2021 Encounter Details Date Type Department Care Team Description 05/02/2021 Telephone General Internal Medicine [facility] 200 [facility] [place] [address] William Joseph MD [address] [place] [address] Appointment Allergies No known active allergiesdocumented as [...] Used Alcohol Use Standard Drinks/Week Comments Yes 5.246793953405504729 (1 standard drink = 0.6 oz pure [...] later this afternoon * Telephone Encounter - PUALA Weir - 05/02/2021 12:26 PM EST Pls reschedule heme/onc Please advise documented in this encounter Plan of Treatment Upcoming Encounters Date Type Specialty Care Team Description 08/14/2021 Office Visit Rheumatology Carlos Alberto Matthews MD [address] [place] [address] 11/10/2021 Office Visit Internal Medicine William Joseph MD [address] [facility] [place], [place] [address] Health Maintenance Due Date Last Done Comments FOBT ANNUALLY,AGES 18-90 03/22/2017 03/22/2016, 09/26 Zoster Vaccines (3 of 3) 12/26/2020 10/31/2020, 12/25 COVID-19 Vaccine (3 - Booster for Pfizer series) 02/03/2021 08/03/2020, 07/13/2020 *DEPRESSION SCREENING,ANNUAL FOR PTS 12 AND OVER 02/23/2021 CKD GFR USE SMARTSET 16198 09/14/202103/16, 03/16/2021, 10/14/2020, Additional history exists CKD HGB USE SMARTSET 93367 10/14/202110/14, 11/18/2019, 10/22/2018, Additional history exists CKD PHOS USE SMARTSET 22949 03/16/202202/25, 03/15/2020, 10/22/2018, Additional history exists DIABETES [...] Documents on File Type Date Recorded Patient Cake Icer Expl anation Advanced Directive Advanced Directive Advanced [...] Directive Advanced Directive Advanced Directive Care Teams Research Biologist Relationship Specialty Start Date End Date William Joseph MD [address] [place] [address] PCP - General Internal Medicine 03/18/12 documented as of this encounter
--- OUTSIDE RECORDS SUMMARY | 2023-01-29 05:06 | External Medical Summary | Summary of Care ---
Author Name Unknown Organization [facility] Address [address] Care Team Providers Care Political Researcher Name Role Phone William Joseph MD Primary Care Provider + Reason for Visit * Reason Onset Date Comments Medication Refill 04/01/2021 Encounter Details Date Type Department Care Team Description 04/01/2021 Refill General Internal Medicine [facility] 200 [facility] [place] [address] William Joseph MD [address] [place] [address] Benign hypertension with CKD (chronic kidney disease) stage III ([facility]) Allergies No known active allergiesdocumented as of this encounter (statuses as of 04/13/2021) Medications Medication Sig Dispensed Refills Start Date [...] as of this encounter (statuses as of 04/13/2021) Active Problems Problem Noted Date MGUS (monoclonal [...] as of this encounter (statuses as of 04/13/2021) Resolved Problems Problem Noted Date Resolved Date Secondary hyperparathyroidism 08/10/2019 History of rheumatoid arthritis 09/04/2017 08/20/2018 History of rheumatoid arthritis 01/06/2016 07/27/2016 Kidney disease, chronic, stage III (GFR 30-59 ml /min) 08/09/2014 07/30/2017 Overview: Per CKD protocol #1 HTN, goal below 140/90 8 Kidney disease, chronic, stage III (GFR 30-59 ml /min) 03/24/2012 documented as of this encounter (statuses as of 04/13/2021) Immunizations Name Administration Dates Next Due COVID-19 [...] Used Alcohol Use Standard Drinks/Week Comments Yes 5.163494066660396456 (1 standard drink = 0.6 oz pure [...] encounter Miscellaneous Notes * Addendum Note - NAHEED Loja - 04/13/2021 10:35 AM EST Addended by: MARKY SO on: 04/13/2021 10:35 AM Modules accepted: Orders * Telephone Encounter - NAHEED Loja - 04/13/2021 10:33 AM EST Called Patient and to verify what he is requesting to refill. Pt states he is taking the conjoined pill amlodipine/benazepril HCl 2.5-10 mg and and additional 5mg benazepril. Pt states that pili ordered this additional benazepril 5 mg when he was having issues with Bp and that is keeping his Bp under control. So Pt needs both refilled NAHEED Loja * Telephone Encounter - William Joseph MD - 04/05/2021 6:24 PM EST Please call, is he asking for benazapril 5 mg to be renewed as well? I don't see on med list, did he stop taking? Please clarify - thanks! * Telephone Encounter - An Lilly LPN - 04/03/2021 10:39 AM EST Refused Prescriptions: Disp Refills amLODIPine Besy-Benazepril HCl 2.5-10 MG O*30 Cap*5 Sig: Take 1Capsule by mouth daily.Refused By: PAUL YANEZ for Refusal: Duplicate Request--------- * Telephone Encounter - An Lilly LPN - 04/03/2021 10:18 AM EST Refused Prescriptions: Disp Refills amLODIPine Besy-Benazepril HCl 2.5-10 MG O*30 Cap*5 Sig: Take 1Capsule by mouth daily.Refused By: PAUL YANEZ for Refusal: Duplicate Request--------- documented in this encounter Plan of Treatment Upcoming Encounters Date Type Specialty Care Team Description 05/02/2021 Office Visit Internal Medicine William Joseph MD 200 [facility], [place] [phone] 08/14/2021 Office Visit Rheumatology Carlos Alberto Matthews MD [address] [place] [address] Health Maintenance Due Date Last Done Comments FOBT ANNUALLY,AGES 18-90 03/22/2017 03/22/2016, 09/26 Zoster Vaccines (3 of 3) 12/26/2020 10/31/2020, 12/25 Influenza Vaccine (FLU shot) (#1) 2021 03/15/2020, 03/24/2019, 05/22/2018, Additional history exists COVID-19 Vaccine (3 - Booster for Pfizer series) 02/03/2021 08/03/2020, 07/13/2020 *DEPRESSION SCREENING,ANNUAL FOR PTS 12 AND OVER 02/23/2021 CKD GFR USE SMARTSET 61484 09/14/202103/16, 03/16/2021, 10/14/2020, Additional history exists CKD HGB USE SMARTSET 71385 10/14/202110/14, 11/18/2019, 10/22/2018, Additional history exists CKD PHOS USE SMARTSET 72786 03/16/202202/25, 03/15/2020, 10/22/2018, Additional history exists DIABETES [...] Documents on File Type Date Recorded Patient Cylinder Steamer Expl anation Advanced Directive Advanced Directive Advanced [...] Directive Advanced Directive Advanced Directive Care Teams Political Researcher Relationship Specialty Start Date End Date William Joseph MD [address] [place] [address] PCP - General Internal Medicine 03/18/12 documented as of this encounter
--- OUTSIDE RECORDS SUMMARY | 2023-01-29 05:06 | External Medical Summary | Summary of Care ---
Author Name Unknown Organization [place] [address] Care Team Providers Care Shop Mechanic Name Role Phone William Chavez MD Primary Care Provider + Reason for Visit * Reason Onset Date Comments Medication Refill 04/01/2021 Encounter Details Date Type Department Care Team Description 04/01/2021 Refill General Internal Medicine [facility] [address] [facility] [place] [address] William Chavez MD [address] [place] [address] Benign hypertension with CKD (chronic kidney disease) stage III ([facility]) Allergies No known active allergiesdocumented as of [...] mouth daily. 30 Tablet 5 04/13/2021 Active amLODIPine Besy-Benazepril HCl 2.5-10 MG Oral [...] Used Alcohol Use Standard Drinks/Week Comments Yes [id number] (1 standard drink = 0.6 oz pure [...] Addendum Note - William Chavez MD - 04/13/2021 11:27 AM EST Addended by: WILLIAM CHAVEZ on: 04/13/2021 11:27 AM Modules accepted: Orders * Telephone Encounter - William Chavez MD - 04/13/2021 11:27 AM EST Signed Prescriptions: Disp Refills Benazepril HCl 5 MG Oral Tablet (Lotensin) 30 Tab*5 Sig: Take 1 Tablet by mouth daily.Authorizing Provider: WILLIAM CHAVEZ Prescriptions: Disp RefillsamLODIPine Besy-Benazepril HCl 2.5- 10 MG O*30 Cap*5 Sig: Take 1 Capsule by mouth daily.Refused By: PAUL YANEZ for Refusal: Duplicate Request * Telephone Encounter - William Chavez MD - 04/13/2021 11:27 AM EST Both meds should be at pharmacy now * Addendum Note - NAHEED Loja - [...] NAHEED Loja * Telephone Encounter - William Chavez MD - 04/05/2021 6:24 PM EST Please call, is he asking for benazapril 5 mg to be renewed as well? I don't see on med list, did he stop taking? Please clarify - thanks! * Telephone Encounter - An Lilly LPN - 04/03/2021 10:39 AM EST Refused Prescriptions: Disp Refills amLODIPine Besy-Benazepril HCl 2.5-10 MG O*30 Cap*5 Sig: Take 1 Capsule by mouth daily.Refused By: PAUL YANEZ for Refusal: Duplicate Request-------- * Telephone Encounter - An Lilly LPN - 04/03/2021 10:18 AM EST Refused Prescriptions: Disp Refills amLODIPine Besy-Benazepril HCl 2.5-10 MG O*30 Cap*5 Sig: Take 1Capsule by mouth daily.Refused By: PAUL YANEZ for Refusal: Duplicate Request--------- documented in this encounter Plan of Treatment Upcoming Encounters Date Type Specialty Care Team Description 05/02/2021 Office Visit Internal Medicine William Chavez MD [address] [place] [address] 08/14/2021 Office Visit Rheumatology Carlos Alberto Matthews MD [address] [place] [address] Health Maintenance Due Date Last Done Comments FOBT ANNUALLY,AGES 18-90 03/22/2017 03/22/2016, 09/26 Zoster Vaccines (3 of 3) 12/26/2020 10/31/2020, 12/25 Influenza Vaccine (FLU shot) (#1) 2021 03/15/2020, 03/24/2019, 05/22/2018, Additional history exists COVID-19 Vaccine (3 - Booster for Pfizer series) 02/03/2021 08/03/2020, 07/13/2020 *DEPRESSION SCREENING,ANNUAL FOR PTS 12 AND OVER 02/23/2021 CKD GFR USE SMARTSET 15334 09/14/202103/16, 03/16/2021, 10/14/2020, Additional history exists CKD HGB USE SMARTSET 49201 10/14/202110/14, 11/18/2019, 10/22/2018, Additional history exists CKD PHOS USE SMARTSET 48734 03/16/202202/25, 03/15/2020, 10/22/2018, Additional history exists DIABETES [...] Documents on File Type Date Recorded Patient Oil Heat Technician Expl anation Advanced Directive Advanced Directive [...] Directive Advanced Directive Advanced Directive Care Teams Shop Mechanic Relationship Specialty Start Date End Date William Chavez MD [address] [place] [id number] PCP - General Internal Medicine 03/18/12 documented as of this encounter
--- OUTSIDE RECORDS SUMMARY | 2023-01-29 05:06 | External Medical Summary | Summary of Care ---
Author Name Unknown Organization [place] [address] Care Team Providers Care Tool And Cutter Grinder Name Role Phone William Joseph MD Primary Care Provider + Reason for Visit * Reason Onset Date Comments Medication Refill 04/01/2021 Encounter Details Date Type Department Care Team Description 04/01/2021 Refill General Internal Medicine [facility] [address] [facility] [address] William Joseph MD [address] [place] [address] Benign hypertension with CKD (chronic kidney disease) stage III ([facility]) Allergies No known active allergiesdocumented as [...] Used Alcohol Use Standard Drinks/Week Comments Yes [id number] (1 standard drink = 0.6 oz pure [...] Miscellaneous Notes * Telephone Encounter - An LillyWAYNE - 04/03/2021 10:39 AM EST Refused Prescriptions: [...] Visit Internal Medicine William Joseph MD [address] [place] [address] 08/14/2021 Office Visit Rheumatology Carlos Alberto Matthews MD [address] [place] [address] Health Maintenance Due Date Last Done Comments FOBT ANNUALLY,AGES 18-90 03/22/2017 03/22/2016, 09/26 Zoster Vaccines (3 of 3) 12/26/2020 10/31/2020, 12/25 Influenza Vaccine (FLU shot) (#1) 2021 03/15/2020, 03/24/2019, 05/22/2018, Additional history exists COVID-19 Vaccine (3 - Pfizer booster) 02/03/2021 08/03/2020, 07/13/2020 *DEPRESSION SCREENING,ANNUAL FOR PTS 12 AND OVER 02/23/2021 CKD PHOS USE SMARTSET 20928 03/15/202102/25, 10/22/2018, 05/04/2016 CKD GFR USE SMARTSET 43526 09/14/202103/16, 10/14/2020, 03/15/2020, Additional history exists CKD HGB USE SMARTSET 13148 10/14/202110/14, 11/18/2019, 10/22/2018, Additional history exists DIABETES [...] Documents on File Type Date Recorded Patient Fish Trapper Expl anation Advanced Directive Advanced Directive Advanced [...] Directive Advanced Directive Advanced Directive Care Teams Tool And Cutter Grinder Relationship Specialty Start Date End Date William Joseph MD [address] [place] [address] PCP - General Internal Medicine 03/18/12 documented as of this encounter
--- OUTSIDE RECORDS SUMMARY | 2023-01-29 05:06 | External Medical Summary | Summary of Care ---
Author Name Unknown Organization [place] [address] Care Team Providers Care Tape Machine Tailer Name Role Phone William Chavez MD Primary Care Provider + Reason for Visit * Reason Comments eRx-Medication Refill Encounter Details Date Type Department Care Team Description 04/01/2021 Refill General Internal Medicine [facility] [place] [address] [facility] [place] [address] William Chavez MD [address] [place] [address] Benign hypertension with CKD (chronic kidney disease) stage III ([facility]) Allergies No known active allergiesdocumented as of [...] Active Flovent HFA 44 MCG/ACT Inhalation Aerosol (fluticasone)Indic ations:Bronchiecta sis (HCC) INHALE ONE PUFF BY MOUTH TWICE DAILY 10.6 g 5 06/22/2020 Active predniSONE 5 MG Oral Tablet (Deltasone)Indicat ions:H/O rheumatoid arthritis Take 1 Tab by mouth daily. 30 Tab 5 02/13/2021 Active Cyanocobalamin 1000 MCG/ML Injection Solution (Cyanocobalamin)In dications:Pernicio us anemia inject 1ml into a large muscle every month 1 mL 4 02/13/2021 Active amLODIPine Besy-Benazepril HCl 2.5-10 MG Oral Capsule (Lotrel)Indication s: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) TAKE ONE CAPSULE BY MOUTH ONE TIME DAILY 30 Capsule 5 04/03/2021 Active amLODIPine Besy-Benazepril HCl 2.5-10 MG Oral Capsule (Lotrel)Indication s: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) Take 1 Cap by mouth daily. 30 Cap 5 09/21/2020 Discontinued documented as of this encounter (statuses [...] Used Alcohol Use Standard Drinks/Week Comments Yes [id number] (1 standard drink = 0.6 oz pure [...] encounter Miscellaneous Notes * Telephone Encounter - Pramod Morley [facility] - 04/03/2021 9:57 AM EST Signed Prescriptions: Disp Refills amLODIPine Besy-Benazepril HCl 2.5-10 MG O*30 Cap*5 Sig: TAKE ONE CAPSULE BY MOUTH ONE TIME DAILY Authorizing Provider: WILLIAM CHAVEZ User: PRAMOD MORLEY documented in this encounter Plan of Treatment Upcoming Encounters Date Type Specialty Care Team Description 05/02/2021 Office Visit Internal Medicine William Chavez MD [address] [facility], [place] [id number] 08/14/2021 Office Visit Rheumatology Carlos Alberto Matthews MD [address] [place] [address] Health Maintenance Due Date Last Done Comments FOBT ANNUALLY,AGES 18-90 03/22/2017 03/22/2016, 09/26 Zoster Vaccines (3 of 3) 12/26/2020 10/31/2020, 12/25 Influenza Vaccine (FLU shot) (#1) 2021 03/15/2020, 03/24/2019, 05/22/2018, Additional history exists COVID-19 Vaccine (3 - Pfizer booster) 02/03/2021 08/03/2020, 07/13/2020 *DEPRESSION SCREENING,ANNUAL FOR PTS 12 AND OVER 02/23/2021 CKD PHOS USE SMARTSET 59728 03/15/202102/25, 10/22/2018, 05/04/2016 CKD GFR USE SMARTSET 89546 09/14/202103/16, 10/14/2020, 03/15/2020, Additional history exists CKD HGB USE SMARTSET 47241 10/14/202110/14, 11/18/2019, 10/22/2018, Additional history exists DIABETES [...] Documents on File Type Date Recorded Patient Clinical Staff Educator Expl anation Advanced Directive Advanced Directive Advanced [...] Directive Advanced Directive Advanced Directive Care Teams Tape Machine Tailer Relationship Specialty Start Date End Date William Chavez MD [address] [place] [id number] PCP - General Internal Medicine 03/18/12 documented as of this encounter
--- OUTSIDE RECORDS SUMMARY | 2023-01-29 05:06 | External Medical Summary | Summary of Care ---
Author Name Unknown Organization [place] [address] Care Team Providers Care Champion Of Sustainable Design Name Role Phone William Joseph MD Primary Care Provider + Reason for Visit * Reason Onset Date Comments Re-Check PT c/o 6 month r echeck. Sinus congestion for several weeks Medication Administration 05/02/2021 Flu an d/or Pneumo Inj Encounter Details Date Type Department Care Team Description 05/02/2021 Office Visit General Internal Medicine [facility] [place] [address] [facility] [place] [address] William oJseph MD [address] [facility] [place] [address] Acute maxillary sinusitis, recurrence not specified*; 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); Mixed hyperlipidemia; Rheumatoid arthritis involving multiple sites with positive rheumatoid factor (HCC); Thyroid nodule; Encounter for long-term (current) use of medications; Need for prophylactic vaccination and inoculation against influenza; MGUS (monoclonal gammopathy of unknown significance) Allergies No known active allergiesdocumented as of [...] mRNA, LNP-s, No Pre serve, 2-Dose Series ([employer]) 08/03/2020,07/13/2020 Pneumococcal Conjugate Vacc, 13 Valent (Prevnar) [...] Used Alcohol Use Standard Drinks/Week Comments Yes [id number] (1 standard drink = 0.6 oz pure [...] Sign Reading Time Taken Comments Blood Pressure 152/80 05/02/2021 12:00 PM EST Pulse 68 05/02/2021 12:00 PM EST Temperature 36.1 C (97 F) 05/02/2021 12:00 PM EST Respiratory Rate - - Oxygen Saturation 95% 05/02/2021 12:00 PM EST Inhaled Oxygen Concentration - - Weight 75.5 kg (166 lb 6.4 oz) 05/02/2021 12:00 PM EST Height 167.6 cm (5' 6") 05/02/2021 12:00 PM EST Body Mass Index 26.86 05/02/2021 12:00 PM EST documented in this encounter Progress Notes * William Joseph MD - 05/02/2021 12:24 PM EST Chief Complaint Patient presents with Re-Check PT c/o 6 month recheck. Sinus congestion for several weeks Medication Administration Flu and/or Pneumo Inj SUBJECTIVE: Ignacio Garcia is a 75 year old male with PMH as below who presents for f/u HTN, CKD III, MGUS, lipids, thyroid nodule. No cp, sob, lloyd. Does admit to 6 weeks of sinus pressure, congestion, nasal drip. No fevers, chills, cough loss of taste or smell. BP has been very good at home, controlled on current regimen. He notes no med for sinus congestion. RA slightly worse in "all joints" was real bad aft er covid booster weeks ago. No falls or trauma. Mood has been ok. Is due to see heme onc with MGUS. Patient Active Problem List Diagnosis Code Encounter [...] by mouth. Every 2 - 3 days Flovent HFA 44 MCG/ACT Inhalation Aerosol (fluticasone) INHALE ONE PUFF BY MOUTH TWICE DAILY 10.6 g 5 Cyanocobalamin 1000 MCG/ML Injection Solution (Cyanocobalamin) inject 1ml into a large muscle every month 1 mL 4 amLODIPine Besy-Benazepril HCl 2.5-10 MG Oral Capsule (Lotrel) TAKE ONE CAPSULE BY MOUTH ONE TIME DAILY 30 Capsule 5 Benazepril HCl 5 MG Oral Tablet (Lotensin) Take 1 Tablet by mouth daily. 30 Tablet 5 Doxycycline Hyclate 100 MG Oral Capsule Take 1 Capsule by mouth 2 times a day for 7 days. Take for 7 days 14 Capsule 0 Fluticasone Propionate 50 MCG/ACT Nasal Suspension Administer 2 Sprays into each nostril daily.16 g 0 benzonatate (TESSALON PERLES) 100 MG Capsule Take 1 Cap by mouth 2 times a day as needed for Cough. Do not cut, crush, or chew. 50 Cap 2 predniSONE 5 MG Oral Tablet (Deltasone) Take 1 Tab by mouth daily. 30 Tab 5 No current facility-administered medications for this visit. Review of patient's allergies indicates: No Known Allergies Health Maintenance Due Topic Date Due FOBT ANNUALLY,AGES 18-90 03/22/2017 Zoster Vaccines (3 of 3) 12/26/2020 COVID-19 Vaccine (3 - Booster for Pfizer series) 02/03/2021 *DEPRESSION SCREENING,ANNUAL FOR PTS 12 AND OVER Never done ROS: CONSTITUTIONAL: No change in weight, No weakness and No fevers, sweats, or chills EYE: No recent significant change in vision, No eye pain, redness, discharge and No diplopia EARS: No ear pain, No drainage, No tinnitus or vertigo and No recent change in hearing PULMONARY: No cough, sputum, or hemoptysis, No wheezing, No rales, No shortness of [...] level: Not on file Occupational History 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 Employer: [employer] Tobacco Use Smoking status: Former Smoker Packs/day: [...] Mother Hypertension Mother OBJECTIVE: PHYSICAL EXAM: BP 152/80 | Pulse 68 | Temp 36.1 C (97 F) (Tympanic) | Ht 1.676 m (5' 6") | Wt 75.5 kg (166 lb 6.4 oz) | SpO2 95% | BMI 26.86 kg/m | BSA 1.88 m General: alert, healthy and no distress Head: Normocephalic, No masses, lesions, t or abnormalities Eye Exam: Conjunctiva are pink and non-injected, sclera clear Ears: External ears normal, Canals clear, TM's Normal Nose: no purulent discharge, mucosal edema, mucosal erythema Heart: regular rate & rhythm, no murmurs, no gallops, PMI non-displaced, S-1 normal and S-2 normal Lungs: normal respiratory rate and rhythm, lungs clear to auscultation Abdomen: abdomen soft, non-tender, normal bowel sounds and no masses or organomegaly Extremities: no edema, no clubbing, no cyanosis Neuro Exam: alert with fluent speech, gait normal Psych: normal affect, no flight of ideas or tangential thought, good eye contact, no pressured speech I reviewed last gfr, lipid, 02/13/21 rheum: He currently has right knee pain and swelling, discussed an aspiration and injection, he agreed andprocedure note is listed separately. The fluid did appear to be noninflammatory verses mild inflammation. There was some bloody aspirate as well. For now will monitor after injection. Spent time discussing getting the 30 COVID vaccine as well ASSESSMENT: J01.00 Acute maxillary sinusitis, recurrence not specified (primary encounter diagnosis) I12.9,N18.30 Benign hypertension with CKD (chronic kidney disease) stage III ([facility]) E78.2 Mixed hyperlipidemia M05.79 Rheumatoid arthritis involving multiple sites with positive rheumatoid factor ([facility]) E04.1 Thyroid nodule Z79.899 Encounter for long-term (current) use of medications Z23 Need for prophylactic vaccination and inoculation against influenza D47.2 MGUS (monoclonal gammopathy of unknown significance) PLAN: Acute maxillary sinusitis, recurrence not specified (Primary) - Doxycycline Hyclate 100 MG Oral Capsule; Take 1 Capsule by mouth 2 times a day for 7 days. Take for 7 days - Fluticasone Propionate 50 MCG/ACT Nasal Suspension; Administer 2 Sprays into each nostril daily. Perhaps cause, given duration covid suspension less add abx and flonase as above Follow symtoms 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) - COMPREHENSIVE METABOLIC PANEL - LIPID PANEL WITH DIRECT LDL IF TG IS HIGH - CBC WITH WBC DIFFERENTIAL Elevated here, but controlled at home well, has been ill Cont naldo espinoza Follow home check, will send to me in 1-2 weeks Mixed hyperlipidemia - COMPREHENSIVE METABOLIC PANEL - LIPID PANEL WITH DIRECT LDL IF TG IS HIGH Declines statin in past Rheumatoid arthritis involving multiple sites with positive rheumatoid factor (HCC) Discussed, he wants to discuss with rheum Follow Thyroid nodule Discussed u/s to re-assess, he declines further scans Encounter for long-term (current) use of medications - VITAMIN B12 Need for prophylactic vaccination and inoculation against influenza - INFLUENZA VACC, QUAD, HIGH DOSE (FLUZONE HD) MGUS (monoclonal gammopathy of unknown significance) F/u heme onc, he will reschedule Follow-up: Return in about 6 months (around 10/31/2021), or if symptoms worsen or fail to improve. | Check-out note: Pls reschedule heme/onc He will come back for 2nd shingrix, and get us covid card (had 3 shots) and bring back fobt William Joseph MD * Lisbeth Mcgrath LPN - 05/02/2021 11:59 AM EST Chief Complaint Patient presents with Re-Check PT c/o 6 month recheck. Sinus congestion for several weeks Pre-Administration Time Out Procedure Performed: Yes Patient Identified (Ask Name/Date of ): Yes Does the patient have a fever greater than 101 degrees today? No Patient allergic to latex? No Has the patient ever fainted after receiving an injection? No VFC Stock: No Verified SideImmunization(s) verified: Yes, Immunization Name: Flu, VIS Sheet(s) given: Yes and Site: Yes Verified Shot(s) with Parent(s)/Patient: Yes documented in this encounter Plan of Treatment Upcoming Encounters Date Type Specialty Care Team Description 08/14/2021 Office Visit Rheumatology Carlos Alberto Matthews MD [address] [place] [address] 11/10/2021 Office Visit Internal Medicine William Joseph MD [address] [facility] [place] [address] Scheduled Orders Name Type Priority Associated Diagnoses Orde r Schedule COMPREHENSIVE METABOLIC PANEL Lab Routine 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) Mixed hyperlipidemia Ordered: 05/02/2021 LIPID PANEL WITH DIRECT LDL IF TG IS HIGH Lab Routine 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) Mixed hyperlipidemia Ordered: 05/02/2021 CBC WITH WBC DIFFERENTIAL Lab Routine 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) Ordered: 05/02/2021 VITAMIN B12 Lab Routine Encounter for long-term (current) use of medications Ordered: 05/02/2021 Health Maintenance Due Date Last Done Comments FOBT ANNUALLY,AGES 18-90 03/22/2017 03/22/2016, 09/26 Zoster Vaccines (3 of 3) 12/26/2020 10/31/2020, 12/25 COVID-19 Vaccine (3 - Booster for Pfizer series) 02/03/2021 08/03/2020, 07/13/2020 *DEPRESSION SCREENING,ANNUAL FOR PTS 12 AND OVER 02/23/2021 CKD GFR USE SMARTSET 85624 09/14/202103/16, 03/16/2021, 10/14/2020, Additional history exists CKD HGB USE SMARTSET 43207 10/14/202110/14, 11/18/2019, 10/22/2018, Additional history exists CKD PHOS USE SMARTSET 33917 03/16/2022 1005/2020, 03/15/2020, 10/22/2018, Additional history exists DIABETES SCREEN [...] as of this encounter Visit Diagnoses Diagnosis Acute maxillary sinusitis, recurrence not specified- Primary 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, or unspecified Mixed hyperlipidemia Rheumatoid arthritis involving multiple sites with positive rheumatoid factor (HCC) Thyroid nodule Nontoxic uninodular goiter Encounter for long-term (current) use of medications Encounter for long-term (current) use of other medications Need for prophylactic vaccination and inoculation against influenza MGUS (monoclonal gammopathy of unknown significance) Monoclonal paraproteinemia documented in this encounter Advance Directives Documents on File Type Date Recorded Patient Surgical Aide Expl anation Advanced Directive Advanced Directive Advanced [...] Directive Advanced Directive Advanced Directive Care Teams Champion Of Sustainable Design Relationship Specialty Start Date End Date William Joseph MD [address] [place] [address] PCP - General Internal Medicine 03/18/12 documented as of this encounter
--- OUTSIDE RECORDS SUMMARY | 2023-01-29 05:06 | External Medical Summary | Summary of Care ---
Author Name Unknown Organization [place] [address] Care Team Providers Care Blocking Machine Operator Second Name Role Phone William Joseph MD Primary Care Provider + Reason for Visit * Reason Onset Date Comments Medication Refill 04/01/2021 Encounter Details Date Type Department Care Team Description 04/01/2021 Refill General Internal Medicine [facility] [address] [facility] [address] William Joseph MD [address] [place] [address] Benign hypertension with CKD (chronic kidney disease) stage III ([facility]) Allergies No known active allergiesdocumented as [...] Used Alcohol Use Standard Drinks/Week Comments Yes [id number] (1 standard drink = 0.6 oz pure [...] Telephone Encounter - An LillyWAYNE - 04/03/2021 10:18 AM EST Refused Prescriptions: Disp Refills amLODIPine Besy-Benazepril HCl 2.5-10 MG O*30 Cap*5 Sig: Take 1Capsule by mouth daily.Refused By: PAUL YANEZ for Refusal: Duplicate Request--------- documented in this encounter Plan of Treatment Upcoming Encounters Date Type Specialty Care Team Description 05/02/2021 Office Visit Internal Medicine William Joseph MD [address] [facility] [address] 08/14/2021 Office Visit Rheumatology Carlos Alberto Matthews MD [address] [place] [address] Health Maintenance Due Date Last Done Comments FOBT ANNUALLY,AGES 18-90 03/22/2017 03/22/2016, 09/26 Zoster Vaccines (3 of 3) 12/26/2020 10/31/2020, 12/25 Influenza Vaccine (FLU shot) (#1) 2021 03/15/2020, 03/24/2019, 05/22/2018, Additional history exists COVID-19 Vaccine (3 - Pfizer booster) 02/03/2021 08/03/2020, 07/13/2020 *DEPRESSION SCREENING,ANNUAL FOR PTS 12 AND OVER 02/23/2021 CKD PHOS USE SMARTSET 06345 03/15/202102/25, 10/22/2018, 05/04/2016 CKD GFR USE SMARTSET 38389 09/14/202103/16, 10/14/2020, 03/15/2020, Additional history exists CKD HGB USE SMARTSET 02117 10/14/202110/14, 11/18/2019, 10/22/2018, Additional history exists DIABETES [...] Documents on File Type Date Recorded Patient Tower Control Operator Expl anation Advanced Directive Advanced Directive [...] Directive Advanced Directive Advanced Directive Care Teams Blocking Machine Operator Second Relationship Specialty Start Date End Date William Joseph MD [address] [place] [address] PCP - General Internal Medicine 03/18/12 documented as of this encounter
--- OUTSIDE RECORDS SUMMARY | 2023-01-29 05:06 | External Medical Summary | Summary of Care ---
Author Name Unknown Organization [place] [address] Care Team Providers Care Ceramic Products Sales Engineer Name Role Phone William Joseph MD Primary Care Provider + Reason for Visit * Reason Onset Date Comments Medication Refill 04/01/2021 Encounter Details Date Type Department Care Team Description 04/01/2021 Refill General Internal Medicine [facility] [address] [place] [address] William Joseph MD [address] [place] [address] Benign hypertension with CKD (chronic kidney disease) stage III ([facility]) Allergies No known active allergiesdocumented as of this encounter (statuses as of 04/05/2021) Medications Medication Sig Dispensed Refills Start Date [...] as of this encounter (statuses as of 04/05/2021) Active Problems Problem Noted Date MGUS (monoclonal [...] as of this encounter (statuses as of 04/05/2021) Resolved Problems Problem Noted Date Resolved Date Secondary hyperparathyroidism 08/10/2019 History of rheumatoid arthritis 09/04/2017 08/20/2018 History of rheumatoid arthritis 01/06/2016 07/27/2016 Kidney disease, chronic, stage III (GFR 30-59 ml /min) 08/09/2014 07/30/2017 Overview: Per CKD protocol #1 HTN, goal below 140/90 8 Kidney disease, chronic, stage III (GFR 30-59 ml /min) 03/24/2012 documented as of this encounter (statuses as of 04/05/2021) Immunizations Name Administration Dates Next Due COVID-19 [...] Used Alcohol Use Standard Drinks/Week Comments Yes [id number] (1 standard drink = 0.6 oz pure [...] Internal Medicine William Joseph MD [address] [place] [address] 08/14/2021 Office Visit Rheumatology Carlos Alberto Matthews MD [address] [place], [place] [address] Health Maintenance Due Date Last Done Comments FOBT ANNUALLY,AGES 18-90 03/22/2017 03/22/2016, 09/26 Zoster Vaccines (3 of 3) 12/26/2020 10/31/2020, 12/25 Influenza Vaccine (FLU shot) (#1) 2021 03/15/2020, 03/24/2019, 05/22/2018, Additional history exists COVID-19 Vaccine (3 - Booster for Pfizer series) 02/03/2021 08/03/2020, 07/13/2020 *DEPRESSION SCREENING,ANNUAL FOR PTS 12 AND OVER 02/23/2021 CKD PHOS USE SMARTSET 82848 03/15/202102/25, 10/22/2018, 05/04/2016 CKD GFR USE SMARTSET 66947 09/14/202103/16, 10/14/2020, 03/15/2020, Additional history exists CKD HGB USE SMARTSET 09728 10/14/202110/14, 11/18/2019, 10/22/2018, Additional history exists DIABETES [...] Documents on File Type Date Recorded Patient Skin Specialist Expl anation Advanced Directive Advanced Directive [...] Directive Advanced Directive Advanced Directive Care Teams Ceramic Products Sales Engineer Relationship Specialty Start Date End Date William Joseph MD [address] [place] [address], [place] [address] PCP - General Internal Medicine 03/18/12 documented as of this encounter
--- OUTSIDE RECORDS SUMMARY | 2023-01-29 05:06 | External Medical Summary | Summary of Care ---
Author Name Unknown Organization [place] [address] Care Team Providers Care Research Fellow Name Role Phone William Joseph MD Primary Care Provider + Reason for Visit * Reason Onset Date Comments Appointment Canceled 03/27/2021 Encounter Details Date Type Department Care Team Description 03/27/2021 Telephone Hematology/Oncology [facility] [address] [place] [address] [place] Salas MD [address] [place] [address] [phone] Appointment Canceled Allergies No Known Active Allergiesdocumented as of this encounter (statuses as of 03/27/2021) Medications Medication Sig Dispensed Refills Start Date [...] as of this encounter (statuses as of 03/27/2021) Active Problems Problem Noted Date MGUS (monoclonal [...] as of this encounter (statuses as of 03/27/2021) Resolved Problems Problem Noted Date Resolved Date Secondary hyperparathyroidism 08/10/2019 History of rheumatoid arthritis 09/04/2017 08/20/2018 History of rheumatoid arthritis 01/06/2016 07/27/2016 Kidney disease, chronic, stage III (GFR 30-59 ml /min) 08/09/2014 07/30/2017 Overview: Per CKD protocol #1 HTN, goal below 140/90 8 Kidney disease, chronic, stage III (GFR 30-59 ml /min) 03/24/2012 documented as of this encounter (statuses as of 03/27/2021) Immunizations Name Administration Dates Next Due COVID-19 mRNA, LNP-s, No Pre serve, 2-Dose Series ([employer]) 08/03/2020,07/13/2020 Pneumococcal Conjugate Vacc, 13 Valent (Prevnar) [...] encounter Miscellaneous Notes * Telephone Encounter - Nava Bolaños OSA - 03/27/2021 8:59 AM EDT Patient canceled appt for today due to not have lab work done yet. Called and spoke to patient and asked if he wanted to at least get another appt on the schedule to review those lab results. Patientstated that at this time he will wait till lab work results come back from [facility] then he will notify our office and we can schedule an appt then. documented in this encounter Plan of Treatment Upcoming Encounters Date Type Specialty Care Team Description 05/02/2021 Office Visit Internal Medicine William Joseph MD [address] [place] [place] [address] [phone] 08/14/2021 Office Visit Rheumatology Carlos Alberto Matthews MD [address] [facility] [place] [address] [phone] Health Maintenance Due Date Last Done Comments FOBT ANNUALLY,AGES 18-90 03/22/2017 03/22/2016, 09/26 Zoster Vaccines (3 of 3) 12/26/2020 10/31/2020, 12/25 Influenza Vaccine (FLU shot) (#1) 2021 03/15/2020, 03/24/2019, 05/22/2018, Additional history exists COVID-19 Vaccine (3 - Pfizer booster) 02/03/2021 08/03/2020, 07/13/2020 *DEPRESSION SCREENING,ANNUAL FOR PTS 12 AND OVER 02/23/2021 CKD PHOS USE SMARTSET 16200 03/15/202102/25, 10/22/2018, 05/04/2016 CKD GFR USE SMARTSET 26762 09/14/202103/16, 10/14/2020, 03/15/2020, Additional history exists CKD HGB USE SMARTSET 95909 10/14/202110/14, 11/18/2019, 10/22/2018, Additional history exists DIABETES [...] Documents on File Type Date Recorded Patient Type Copyist Expl anation Advanced Directive Advanced Directive Advanced [...]
--- OUTSIDE RECORDS SUMMARY | 2023-01-29 05:06 | External Medical Summary | Summary of Care ---
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) William Chavez MD [address] [place] [address] Encounter Details Date Type Department Care Team Description 01/04/2021 Office Visit Nephrology, Armen Hutchison [address] [facility] [place] [address] Lisbeth Ward MD [address] [place] [address] [phone] 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)*; Essential hypertension with goal blood pressure less than 140/90; Renal osteodystrophy Allergies No Known Active Allergiesdocumented as of this encounter (statuses as of 01/29/2021) Medications Medication Sig Dispensed Refills Start Date [...] as of this encounter (statuses as of 01/29/2021) Active Problems Problem Noted Date MGUS (monoclonal [...] as of this encounter (statuses as of 01/29/2021) Resolved Problems Problem Noted Date Resolved Date Secondary hyperparathyroidism 08/10/2019 History of rheumatoid arthritis 09/04/2017 08/20/2018 History of rheumatoid arthritis 01/06/2016 07/27/2016 Kidney disease, chronic, stage III (GFR 30-59 ml /min) 08/09/2014 07/30/2017 Overview: Per CKD protocol #1 HTN, goal below 140/90 8 Kidney disease, chronic, stage III (GFR 30-59 ml /min) 03/24/2012 documented as of this encounter (statuses as of 01/29/2021) Immunizations Name Administration Dates Next Due COVID-19 mRNA, LNP-s, No Pre serve, 2-Dose Series ([employer]) 08/03/2020,07/13/2020 Pneumococcal Conjugate Vacc, 13 Valent (Prevnar) [...] Sign Reading Time Taken Comments Blood Pressure 132/74 01/04/2021 3:01 PM EDT Pulse 64 01/04/2021 3:01 PM EDT Temperature 37.3 C (99.1 F) 01/04/2021 3:01 PM ED T Respiratory Rate 16 01/04/2021 3:01 PM EDT Oxygen Saturation - - Inhaled Oxygen Concentration - - Weight 74.8 kg (165 lb) 01/04/2021 3:01 PM EDT Height - - Body Mass Index 26.23 11/22/2020 2:25 PM EDT documented in this encounter Patient Instructions * Patient Instructions* Lisbeth Ward MD - 01/04/2021 3:38 PM EDT -avoid medicines like aleve, advil, ibuprofen, aspirin more than 81 mg daily and other NSAIDS whichare not good for kidney patients. Take only tylenol (acetaminophen) up to 2000 mg daily as needed for pain or as directed by your primary care provider. -no medication changes today -update your labs soon (order slips given) -if you have not heard about a follow up appt with me for August 2021 by February, pls contact us documented in this encounter Progress Notes * Lisbeth Ward MD - 01/04/2021 3:22 PM EDT NEPHROLOGY CLINIC 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 PMH includes HTN since late and evaluated for urgency at time of dx, per rheum "burnt out" RAon intermittent prendisone, OA, pernicious anemia, HL, thoracic aortic aneurysm, bronchiectasis on inhalers, thyroid nodules. Checks bp at home w/ upper arm and similar to readings here. Checks most days. Recently at Dec 2018[facility] care stopped bp meds a few mos back after lengthy GI diarrheal illness; lost wt and stopped. Did not see GI for this. Settled on own. Then about 2 wks ago (Dec 2018) he resumed bp meds b/c noted on home readings it was coming up. Home bp recently 120-130s systolic, HR 70s. Last hospitalization was for HTN. Past hx of heavy NSAID use in early ; then stopped. Some hx of EtOH use; stopped early 2020. Has been on lotrel for 10 years; was off for 2 mos w/ GI illness and noted less edema. No FH of CKD/ESRD; no hx of stones. Since Last Office/Telemedicine Visit: 12/31/2018: Doses of bp meds reduced. Over past 18 mos has lost 10-15 lb w/ work and better BP; no more EtOH to do this (quit 6 mos back). [facility] at times 110-120s - does feel a bit "wan" at those times. Fairly sedentary d/t RA -- R knee/hip limit his activity; not on meds for RA currently. Has to strategize about # of flights of stairs. Has had both of his vaccines for covid. Bronchiectasis issues steady ALSO recently w/ ? Dx of MGUS versus myeloma; follows w Dr Salas REVIEW OF SYSTEMS: No F/C, intended wt loss, energy level and appetite acceptable No acute visual changes or RODRIGES No sinus, dental, throat pain No neck lumps/bumps or stiffness No palpitations, angina, orthopnea, minimal ankle BLE edema No cough, wheeze, or dyspnea No N/V/D/C/abd pain No dysuria, hematuria, nocturia >2X; no new/worrisome voiding sx No rash or generalized itch chronic joint/muscle aches > including feet, fingers, ankles, knees/ hips wrists when flaring No inappropriate bleeding or bruising No tremor, seizures, focal or global weakness or paresthesias No presyncopal or orthostatic symptoms; no falls All other systems were reviewed and were negative. Current Outpatient Medications Medication Sig Dispense Refill amLODIPine Besy-Benazepril HCl 2.5-10 MG Oral Capsule (Lotrel) Take 1 Cap by mouth daily. 30 Cap 5 Cyanocobalamin 1000 MCG/ML Injection Solution (Cyanocobalamin) inject 1ml into a large muscle every month 1 mL 4 Flovent HFA 44 MCG/ACT Inhalation Aerosol (fluticasone) INHALE ONE PUFF BY MOUTH TWICE DAILY 10.6 g 5 benzonatate (TESSALON PERLES) 100 MG Capsule Take 1 Cap by mouth 2 times a day as needed for Cough. Do not cut, crush, or chew. 50 Cap 2 predniSONE (DELTASONE) 5 MG Tablet Take 1 Tab by mouth daily. (Patient taking differently: Cizo03-84 mg by mouth daily as needed (RA Flare up).) 30 Tab 5 Cholecalciferol (VITAMIN D3) 50 MCG (2000 UT) Tablet Take 1,000 Units by mouth. 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 Employer: [employer] Social Needs Financial resource strain: Not on file Food insecurity Worry: Never true Inability: Never true Transportation needs Medical: Not on file Non-medical: Not on file Tobacco Use Smoking status: Former Smoker Packs/day: 2.00 Years: 35.00 Pack years: 70.00 Types: Cigarettes Quit date: 06/25/1990 Years since quittin.6 Smokeless tobacco: Never Used Substance and Sexual Activity Alcohol use: Yes Alcohol/week: 5.8 standard drinks Types: 7 Mixed drink(s) containing 1.5 shots of alcohol per week Comment: occassional Drug use: No Sexual activity: Yes Partners: Male Lifestyle Physical activity Days per week: Not on file Minutes per session: Not on file Stress: Not on file Relationships Social connections Talks on phone: Not on file Gets together: Not on file Attends adventist service: Not on file Active member of club or organization: Not on file Attends meetings of clubs or organizations: Not on file Relationship status: Not on file Intimate partner violence Fear of current or ex partner: Not on file Emotionally abused: Not on file Physically abused: Not on file Forced sexual activity: Not on file Other Topics Concern Service Not Asked Blood Transfusions Not Asked Caffeine Concern Not Asked Occupational Exposure Not Asked Hobby Hazards Not Asked Sleep Concern Not Asked Stress Concern Not Asked Weight Concern Not Asked Special Diet Not Asked Back Care Not Asked Exercise Not Asked Bike Helmet Not Asked Seat Belt No Self-Exams Not Asked Social History Narrative Not on file Vaping/E-Cigarette Use Vaping/E-Cigarette Substances Vaping/E-Cigarette Devices Family History Problem Relation Age of Onset Other (osteoarthritis [Other]) Mother Hypertension Mother Family Status Relation Status Mo at age 87 Fa at age 92 Son Alive Sis Alive Son Alive Son Alive PHYSICAL EXAMINATION: BP Readings from Last 6 Encounters: 01/04/21 132/74 11/22/20 162/85 10/31/20 138/74 09/09/20 152/98 08/11/20 154/80 03/21/20 160/100 Wt Readings from Last 6 Encounters: 01/04/21 74.8 kg (165 lb) 11/22/20 74.4 kg (164 lb) 10/31/20 75.2 kg (165 lb 12.8 oz) 09/09/20 76.7 kg (169 lb) 08/11/20 75.3 kg (166 lb) 03/21/20 75.4 kg (166 lb 3.2 oz) Pulse Readings from Last 6 Encounters: 01/04/21 64 11/22/20 74 10/31/20 72 09/09/20 76 03/21/20 80 02/18/20 88 NAD, oriented x 3, ambulatory w/o asst, not invited ontotable Normocephalic, atraumatic, eomi nonicteric sclerae MMM Supple neck w/o lad RRR w/o m/g/r; trace R >L ankle edema Inspiratory wheezes, crackles, some rhonchi NT abd, +BS, soft No cyanosis or clubbing No rash No tremor, focal or global weakness; fluent speech, good hx LABS: Recent Labs Units 10/14/20 03/15/20 11/18/19 POTASSIUM-OUTSIDE LAB MMOL/L 4.6 4.5 4.4 CREATININE-OUTSIDE LAB MG/DL 1.32* 1.15 1.38* Results for IGNACIO GARCIA I ( ) as of 01/04/2021 15:22 Ref. Range 10/22/2018 00:00 11/11/2018 00:00 11/18/2019 00:00 03/15/2020 00:00 10/14/2020 00:00 EGFR-OUTSIDE LAB Latest Ref Range: >=60 ML/MIN/1.73M2 51 (A) 51 (L) 49 (A) 61 52 (A) 09/2020 BMP, cbc, al labs reviewed> as above; remarkable also from renal standpoint for albumin serum 3.4 Recent Labs Units 10/14/20 11/18/19 HEMOGLOBIN-OUTSIDE LAB G/DL 15.8 15.5 Recent Labs Units 03/15/20 PHOSPHORUS-OUTSIDE LAB MG/DL 3.4 Results for IGNACIO GARCAI I ( ) as of 01/04/2021 15:25 Ref. Range 05/04/2016 12:09 10/22/2018 00:00 11/11/2018 00:00 11/18/2019 00:00 10/14/2020 00:00 PTH Latest Ref Range: 15 - 65 pg/mL 54 PTH-OUTSIDE LAB Latest Ref Range: 14 - 64 PG/ML 83 (A) 90 (A) 15 25-HYDROXY VITAMIN D - OUTSIDE LAB Latest Ref Range: 30 - 100 NG/ML 24 (A) 49 No results for input(s): HGBA1C in the last 64875 hours. Invalid input(s): URINALYSIS No results for input(s): MICROALBUMIN, PROCRRATIO in the last 71833 hours. Recent Labs Units 11/18/19 PROTEIN, UA-OUTSIDE LAB MG/DL 21 Results for IGNACIO GARCIA I ( ) as of 01/29/2021 11:07 Ref. Range 01/01/2014 11:28 08/03/2016 13:51 Albumin / Creatinine Ratio, Urine Latest Ref Range: <30 mg/g creat 56 (H) 92 (H) October 2019 UACM > no bacteria, bland sediment; UA not reported 114 prot/creat ratio ASSESSMENT AND PLAN: 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) (Primary) - PTH - 25-HYDROXY VITAMIN D - PHOSPHORUS - PROTEIN/ CREATININE RATIO, URINE - URINALYSIS WITH MICROSCOPIC EXAM - ALBUMIN / CREATININE RATIO, URINE - BASIC METABOLIC PANEL Essential hypertension with goal blood pressure less than 140/90 - PROTEIN/ CREATININE RATIO, URINE - URINALYSIS WITH MICROSCOPIC EXAM - ALBUMIN / CREATININE RATIO, URINE - BASIC METABOLIC PANEL Renal osteodystrophy - PTH - 25-HYDROXY VITAMIN D - PHOSPHORUS - BASIC METABOLIC PANEL Follow Up: Return in about 8 months (around 09/04/2021) for clinic visit w/ . | For: clinic visit w/ Stable nonproteinruic CKD 3A w/ 114 mg proteinuria on last check, comparable to values several years ago. Acceptable chemistries though hypoalbuminemia noted > ? relatio to MGUS? ?relation to EtOH? ?relation to other. Low esrd risk; biggest risk to him is uncontrolled HTN. Volume status, chemistries ok. -labs as below -cont lower lotrel, dose ok True target bp for him should be <130/80; while near this today, rarely in this ballpark at other [facility] even recently skyla/ sharon documented wt loss 10-15 lb done by 01/2020. He reports better bp after wt loss, stoppign etoh but not what we see in clinic notes. October visit w/ sbp 160s was w/ heme (?stiuational); however August visit w/ sbp 150s at [facility] reported more sedentary behavior w/ pandemic and acknowledged similar readings spb 150s at home. -home bp log -lifestyle measures as pain tolerates (pain complicates bp mgt) -cont curretn meds On D3 supplements; assess dose adequacy; PTH values have been labile; no est range for CKD 3 pts' PTH values Patient Instructions -avoid medicines like aleve, advil, ibuprofen, aspirin more than 81 mg daily and other NSAIDS whichare not good for kidney patients. Take only tylenol (acetaminophen) up to 2000 mg daily as needed for pain or as directed by your primary care provider. -no medication changes today -update your labs soon (order slips given) -if you have not heard about a follow up appt with me for August 2021 by February, pls contact us Lisbeth Ward MD Nephrology, [facility] [address] [facility] [address] CC: Ref: WILLIAM CHAVEZ[[id number]] [address] [facility] [place] [id number] (office) [phone] (fax) PCP: WILLIAM CHAVEZ [address] [facility] [place] [address] [phone] This chart was completed in part utilizing [employer] Speech Voice Recognition Software. Randomword insertions, pronoun errors, and incomplete sentences are an occasional consequence of this system due to software limitations, and ambient noise. Any questions or concerns about the content, text, or information contained within the body of this dictation should be directly addressed to the provider for clarification. documented in this encounter Nursing Notes * Raegan Stephens LPN - 01/04/2021 3:00 PM EDT Chief Complaint Patient presents with Re-Check documented in this encounter Plan of Treatment Upcoming Encounters Date Type Specialty Care Team Description 02/13/2021 Office Visit Rheumatology Carlos Alberto Matthews MD [facility] [place] [address] [phone] 03/27/2021 Office Visit Hematology Oncology South Salas MD [address] [place] [address] [phone] 05/02/2021 Office Visit Internal Medicine William Chavez MD [address] [place] [address] [phone] Scheduled Orders Name Type Priority Associated Diagnoses Orde r Schedule PTH Lab Routine 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) Renal osteodystrophy Ordered: 01/04/2021 25-HYDROXY VITAMIN D Lab Routine 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) Renal osteodystrophy Ordered: 01/04/2021 PHOSPHORUS Lab Routine 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) Renal osteodystrophy Ordered: 01/04/2021 PROTEIN/ CREATININE RATIO, URINE Lab Routine 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) Essential hypertension with goal blood pressure less than 140/90 Ordered: 01/04/2021 URINALYSIS WITH MICROSCOPIC EXAM Lab Routine 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) Essential hypertension with goal blood pressure less than 140/90 Ordered: 01/04/2021 ALBUMIN / CREATININE RATIO, URINE Lab Routine 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) Essential hypertension with goal blood pressure less than 140/90 Ordered: 01/04/2021 BASIC METABOLIC PANEL Lab Routine 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) Essential hypertension with goal blood pressure less than 140/90 Renal osteodystrophy Ordered: 01/04/2021 Health Maintenance Due Date Last Done Comments FOBT ANNUALLY,AGES 18-90 03/22/2017 03/22/2016, 09/26 Zoster Vaccines (3 of 3) 12/26/2020 10/31/2020, 12/25 Influenza Vaccine (FLU shot) (#1) 2021 03/15/2020, 03/24/2019, 05/22/2018, Additional history exists CKD PHOS USE SMARTSET 27722 03/15/202102/25, 10/22/2018, 05/04/2016 CKD GFR USE SMARTSET 49608 04/16/202110/14, 03/15/2020, 11/18/2019, Additional history exists CKD HGB USE SMARTSET 71215 10/14/202110/14, 11/18/2019, 10/22/2018, Additional history exists DIABETES [...] kidney disease) stage III ([facility])- Primary Benign hypertensive kidney disease with chronic kidney disease stage I through stage IV, or unspecified Essential hypertension with goal blood pressure less than 140/90 Renal osteodystrophy documented in this encounter Advance Directives Documents on File Type Date Recorded Patient Operations Support Analyst Expl anation Advanced Directive Advanced Directive Advanced Directive Advanced Directive Advanced Directive Advanced Directive Advanced Directive Advanced Directive Advanced Directive Advanced Directive Advanced Directive Advanced Directive Advanced Directive Advanced Directive Advanced Directive Advanced Directive Advanced Directive Advanced Directive Advanced Directive Advanced Directive Advanced Directive Advanced Directive Advanced Directive Advanced Directive Advanced Directive Advanced Directive Advanced Directive
--- OUTSIDE RECORDS SUMMARY | 2023-01-29 05:06 | External Medical Summary | Summary of Care ---
Author Name Unknown Organization [place] [address] Care Team Providers Care Panel Edge Painter Name Role Phone William Joseph MD Primary Care Provider + Reason for Visit * Reason Comments Rheum Follow Up recheck Encounter Details Date Type Department Care Team Description 02/13/2021 Office Visit Rheumatology [facility] [address] [place] [address] Harry Brooks MD [address] [place] [address] [phone] Rheumatoid arthritis involving multiple sites with positive rheumatoid factor (HCC)*; Encounter for therapeutic drug monitoring; MGUS (monoclonal gammopathy of unknown significance); Bronchiectasis without complication (HCC) Allergies No Known Active Allergiesdocumented as of this encounter (statuses as of 02/13/2021) Medications Medication Sig Dispensed Refills Start Date [...] every month 1 mL 4 02/13/2021 Active Hospital, Clinic, or Other Facility Administered Medication Ordered Dose Route Frequency Start Date End Date Status Lidocaine 2 % (PF) inj 40 mgIndications:Rheumatoid arthritis involving multiple sites with positive rheumatoid factor (HCC),Encounter for therapeutic drug monitoring 40 mg IX ONCE 02/13/2021 02/14/20 21 Ended methylPREDNISolone acetate (Depo-Medrol) 40 MG/ML inj 40 mgIndications:Rheumatoid arthritis involving multiple sites with positive rheumatoid factor (HCC),Encounter for therapeutic drug monitoring 40 mg IX ONCE 02/13/2021 02/14/20 21 Ended documented as of this encounter (statuses as of 02/13/2021) Active Problems Problem Noted Date MGUS (monoclonal [...] as of this encounter (statuses as of 02/13/2021) Resolved Problems Problem Noted Date Resolved Date Secondary hyperparathyroidism 08/10/2019 History of rheumatoid arthritis 09/04/2017 08/20/2018 History of rheumatoid arthritis 01/06/2016 07/27/2016 Kidney disease, chronic, stage III (GFR 30-59 ml /min) 08/09/2014 07/30/2017 Overview: Per CKD protocol #1 HTN, goal below 140/90 8 Kidney disease, chronic, stage III (GFR 30-59 ml /min) 03/24/2012 documented as of this encounter (statuses as of 02/13/2021) Immunizations Name Administration Dates Next Due COVID-19 [...] Pressure - - Pulse - - Temperature 36.3 C (97.3 F) 02/13/2021 2:10 PM ED T Respiratory Rate - - Oxygen Saturation - - Inhaled Oxygen Concentration - - Weight 75.8 kg (167 lb) 02/13/2021 2:10 PM EDT Height - - Body Mass Index 26.55 11/22/2020 2:25 PM EDT documented in this encounter Progress Notes * Harry Brooks MD - 02/13/2021 3:05 PM EDT Progress Notes Today's Visit Note 02/13/2021 Harry Brooks MD Assessment Diagnosis Comment (M05.79) Rheumatoid arthritis involving multiple sites with positive rheumatoid factor (HCC) (primary encounter diagnosis) (Z51.81) Encounter for therapeutic drug monitoring (D47.2) MGUS (monoclonal gammopathy of unknown significance) (J47.9) Bronchiectasis without complication (HCC) Comment He currently has right knee pain and swelling, discussed an aspiration and injection, he agreed and procedure note is listed separately. The fluid did appear to be noninflammatory verses mildinflammation. There was some bloody aspirate as well. For now will monitor after injection. Spent time discussing getting the 30 COVID vaccine as well Plan 1. see procedure note 2. use pred as needed 3. suggest getting 3rd covid vaccine 4. RTC in 6 months History "Mr. Garcia is a 75 year old man last seen in Rheumatology today (02-13-21). He has h/o Rheumatoid arthritis involving multiple sites with positive rheumatoid factor (HCC), Mixed hyperlipidemia, 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), Bronchiectasis (HCC), Thyroid nodule, MGUS (monoclonal gammopathy of unknown significance), Pernicious anemia, and Bunion, left foot." Temporary History he contoinues to have right hip pain but is most bothered by his right knee. it is swollen. troublewith gettin gup and down, stairs. + night time pain. he would like and aspiration and injection. pain can be up to an 8/10. he has used some prednisone about once a week and it lasts 2-3 days. He reports last time he had an injection to the right knee was about 15 years ago. He has had 2 doses of the COVID vaccine. Permanent History diagnosed with RA in 2001 but now burnt out, off DMARD therapy Events Since Last Visit Event Y/N Comment New Symptom Yes right knee swelling Condition Summary Date Description 01/04/2021 NEPHROLOGY [facility] with Dr. Ward (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)) 11/22/2020 HEM/ONC [facility] with Dr. Salas (MGUS (monoclonal gammopathy of unknown significance)) 10/31/2020 GEN INT MED [facility] POD3 x 2 (09/09/20, 10/31/20). Most recent with SHAILA Barry (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)) 08/11/2020 RHEUMATOLOGY [facility] with Dr. Brooks (Rheumatoid arthritis involving multiple sites with positive rheumatoid factor (HCC)) Review of Systems (ROS) ROS Symptoms Cardiopulmonary Chronic cough General None HEENT None MS/Neuro None Skin None Gastrointestinal None Genitourinary None Medications Rheumatology Meds Other Meds AMLODIPINE BESY-BENAZEPRIL HCL 2.5-10 MG OR CAPS Take 1 Cap by mouth daily. BENZONATATE 100 MG OR CAPS Take 1 Cap by mouth 2 times a day as needed for Cough. Do not cut, crush, or chew. FLOVENT HFA 44 MCG/ACT IN AERO INHALE ONE PUFF BY MOUTH TWICE DAILY VITAMIN D3 50 MCG (1999 UT) OR TABS Take 1,000 Units by mouth. 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 Crepitus on exam of the right kneewith discomfort. Small Correia cyst noted right knee. Limited internal range of motion of the right hip without pain. No active synovitis of the hands noted. Neck supple, no masses, JVD, or thyromegaly Lymph Nodes no lymphadenopathy Heart regular rate and rhythm, no murmurs or rubs Lungs Diffuse rhonchi noted throughout with no wheezing Abdomen soft, normal bowel sounds, no masses or organomegaly Monitoring Labs Measure Today Previous HGB g/dl 15.8 10/20/2020 eGFR mL/min/1.73 M2 52 10/20/2020 ALT U/L 13 10/20/2020 Outcome Measures Measure Today Previous MDHAQ 3.33 02/13/2021 Pain 7 02/13/2021 Fatigue 3 02/13/2021 Stiffness 0 02/13/2021 Patient Global 6 02/13/2021 2 08/11/2020 Rapid3 16.33 02/13/2021 Tender Score 1 02/13/2021 0 08/11/2020 Swollen Score 1 02/13/2021 0 08/11/2020 Physician Global Score 3 02/13/2021 2 08/11/2020 Patient Global Score 6 02/13/2021 2 08/11/2020 CDAI 11 02/13/2021 4 08/11/2020 Care Gaps As Of 02/12/2021 Physician open RA on DMARD RA, Not on DMARD N/A Active RA on DMARD [...] if on Biologic TB Testing Not Applicable open Flu Vaccine Flu Vaccine Needed closed Pneumococcal Vaccine 13 or 23 Pneumococcal Vaccine Completed open Zoster Vaccine (Shingrix) Needs Second Shingrix Vaccine Treat To Target - Provider Goal Measure Current Target CDAI 11 10 Opportunity No changes required The patient does not have enough data on file or a decision was made at a prior visit. Signature HARRY BROOKS * Harry Brooks MD - 02/13/2021 2:26 PM EDT Associated Order(s): LG Joint Inj/Arthro: R knee Post-Procedure Diagnose(s): Rheumatoid arthritis involving multiple sites with positive rheumatoid factor (HCC); Encounter for therapeutic drug monitoring Ignacio Garcia is a 75 year old male patient. ICD-10-CM 1. Rheumatoid arthritis involving multiple sites with positive rheumatoid factor (HCC) M05.79 2. Encounter for therapeutic drug monitoring Z51.81 3. 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 4. Bronchiectasis without complication (HCC) J47.9 Past Medical History: Diagnosis Date Bronchiectasis (HCC) 12/08/2013 Encounter for long-term (current) use of other medications 07/27/2010 History of rheumatoid arthritis 01/06/2016 HTN, goal below 140/90 Pernicious anemia 08/24/2010 Thyroid nodule 08/10/2019 Temperature 36.3 C (97.3 F), temperature source Infrared , weight 75.8 kg (167 lb). LG Joint Inj/Arthro: R knee on 02/13/2021 2:27 PM Indications: pain and joint swelling Details: 20 G needle, medial approach Medications: (40mg depomedrol and 1 ml of 2% lidocaine) Aspirate: 30 mL blood-tinged and yellow Outcome: tolerated well, no immediate complications Procedure, treatment alternatives, risks and benefits explained, specific risks discussed. Consent was given by the patient. Immediately prior to procedure a time out was called to verify the correctpatient, procedure, equipment, office support specialist and site/side marked as required. Patient was prepped and draped in the usual sterile fashion. Harry Brooks MD 02/13/2021 documented in this encounter Nursing Notes * Fani Hickman LPN - 02/13/2021 2:10 PM EDT Chief Complaint Patient presents with Rheum Follow Up recheck documented in this encounter Plan of Treatment Upcoming Encounters Date Type Specialty Care Team Description 03/27/2021 Office Visit Hematology Oncology [place] Salas MD [address] [place] [address] [phone] 05/02/2021 Office Visit Internal Medicine William Joseph, MD [address] [place], [place] [address] [phone] 08/14/2021 Office Visit Rheumatology Harry Brooks MD [address] [facility] [place], [place] [address] [phone] Health Maintenance Due Date Last Done Comments FOBT ANNUALLY,AGES 18-90 03/22/2017 03/22/2016, 09/26 Zoster Vaccines (3 of 3) 12/26/2020 10/31/2020, 12/25 Influenza Vaccine (FLU shot) (#1) 2021 03/15/2020, 03/24/2019, 05/22/2018, Additional history exists CKD PHOS USE SMARTSET 33096 03/15/202102/25, 10/22/2018, 05/04/2016 CKD GFR USE SMARTSET 62034 04/16/202110/14, 03/15/2020, 11/18/2019, Additional history exists CKD HGB USE SMARTSET 81323 10/14/202110/14, 11/18/2019, 10/22/2018, Additional history exists DIABETES [...] Procedure Name Priority Date/Time Associated Diagnosis Comments AR ARTHROCENTESIS ASPIR&/INJ MAJOR JT/BURSA W/O US Routine 02/13/2021 2:26 PM EDT Rheumatoid arthritis involving multiple sites with positive rheumatoid factor (HCC) Encounter for therapeutic drug monitoring documented in this encounter Results * LG Joint Inj/Arthro: R knee (02/13/2021 2:26 PM EDT) Narrative Performed At Harry Brooks MD 02/13/2021 3:09 PM LG Joint Inj/Arthro: R knee on 02/13/2021 2:27 PM Indications: pain and joint swelling Details: 20 G needle, medial approach Medications: (40mg depomedrol and 1 ml of 2% lidocaine) Aspirate: 30 mL blood-tinged and yellow Outcome: tolerated well, no immediate complications Procedure, treatment alternatives, risks and benefits explained, specific risks discussed. Consent was given by the patient. Immediately prior to procedure a time out was called to verify the correct patient, procedure, equipment, office support specialist and site/side marked as required. Patient was prepped and draped in the usual sterile fashion. documented in this encounter Visit Diagnoses Diagnosis Rheumatoid arthritis involving multiple sites with positive rheumatoid factor (HCC)- Primary Encounter for therapeutic drug monitoring MGUS (monoclonal gammopathy of unknown significance) Monoclonal paraproteinemia Bronchiectasis without complication (HCC) Bronchiectasis without acute exacerbation documented in this encounter Administered Medications Inactive Administered Medications - up to 3 most recent administrations Medication Order MAR Action Action Date Dose Rate Site Lidocaine 2 % (PF) inj 40 mg 40 mg, Intra-Articular, ONCE, 02/13/21 at 1500, For 1 dose Given 02/13/2021 2:26 PM EDT 40 mg Knee Right methylPREDNISolone acetate (Depo-Medrol) 40 MG/ML inj 40 mg 40 mg, Intra-Articular, ONCE, 02/13/21 at 1500, For 1 dose Given 02/13/2021 2:26 PM EDT 40 mg Knee Right documented in this encounter Advance Directives Documents on File Type Date Recorded Patient Construction Secretary Expl anation Advanced Directive Advanced Directive Advanced [...]
--- OUTSIDE RECORDS SUMMARY | 2023-01-29 05:06 | External Medical Summary | Summary of Care ---
Author Name Unknown Organization [place] [address] Care Team Providers Care Bag Machine Set Up Operator Name Role Phone William Chavez MD Primary Care Provider + Reason for Visit * Reason Onset Date Comments Medication Refill 02/11/2021 Encounter Details Date Type Department Care Team Description 02/11/2021 Refill General Internal Medicine [facility] [address] [place] [address] William Chavez MD [address] [place] [address] [phone] Pernicious anemia Allergies No Known Active Allergiesdocumented as of [...] 2 10/20/2019 Active predniSONE (DELTASONE) 5 MG TabletIndications: H/O rheumatoid arthritis Take 1 Tab by mouth daily. 30 Tab 5 10/20/2019 Active Additional Information Patient taking differently: 10-15 mg Oral DAILY PRN, RA Flare up, Reported on 02/18/2020 Flovent HFA 44 MCG/ACT Inhalation Aerosol (fluticasone)Indic ations:Bronchiecta sis (HCC) INHALE ONE PUFF BY MOUTH TWICE DAILY 10.6 g 5 06/22/2020 Active amLODIPine Besy-Benazepril HCl 2.5-10 MG Oral Capsule (Lotrel)Indication s: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) Take 1 Cap by mouth daily. 30 Cap 5 09/21/2020 Active Cyanocobalamin 1000 MCG/ML Injection Solution (Cyanocobalamin)In dications:Pernicio us anemia inject 1ml into a large muscle every month 1 mL 4 02/13/2021 Active Cyanocobalamin 1000 MCG/ML Injection Solution (Cyanocobalamin)In dications:Pernicio us anemia inject 1ml into a large muscle every month 1 mL 4 08/01/2020 02/11/2021 Discontinue d(Refill) documented as of this encounter [...] Telephone Encounter - William Chavez MD - 02/13/2021 9:45 AM EDT Signed Prescriptions: Disp Refills Cyanocobalamin 1000 MCG/ML Injection Solut*1 mL 4 Sig: inject 1ml into a large muscle every month Authorizing Provider: WILLIAM CHAVEZ * Telephone Encounter - Oksana Barksdale LPN - 02/13/2021 9:32 AM EDT Pending Prescriptions: Disp Refills Cyanocobalamin 1000 MCG/ML Injection Solu*1 mL 4 Sig: inject 1ml into a large muscle every month * Telephone Encounter - Oksana Barksdale LPN - 02/13/2021 9:32 AM EDT Pending Prescriptions: Disp Refills Cyanocobalamin 1000 MCG/ML Injection Solu*1 mL 4 Sig: inject 1ml into a large muscle every month Last Office/Telemedicine Visit: 10/31/2020 05/02/2021 Last date the medication was ordered: 08/01/20 Patient Active Problem List Diagnosis Code Encounter for therapeutic drug monitoring Z51.81 Pernicious anemia D51.0 Bronchiectasis (HCC) J47.9 Thoracic aortic aneurysm (HCC) I71.2 Benign hypertension with CKD (chronic kidney disease) stage III ([facility]) I12.9, N18.30 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 Bunion, left foot M21.612 Primary osteoarthritis of right hip M16.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 ([facility]) M05.79 Mixed hyperlipidemia E78.2 Thyroid nodule 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 Labs: Lab Results Component Value Date/Time CREATININE - [facility] 1.3 (H) 05/04/2016 12:09 PM CREATININE, RANDOM URINE - [facility] 94 08/03/2016 01:51 PM CREATININE-[facility] 1.32 (A) 10/14/2020 Lab Results Component Value Date/Time POTASSIUM - [facility] 4.6 05/04/2016 12:09 PM POTASSIUM-[facility] 4.6 10/14/2020 Lab Results Component Value Date/Time TSH - [facility] 0.82 06/24/2013 12:14 PM TSH - [facility] 1.34 10/14/2020 Lab Results Component Value Date/Time LDL (CALCULATED)-[facility] 110 (A) 10/14/2020 LDL (CALCULATED)-[facility] 108 (H) 03/15/2020 LDL CHOLESTEROL (CALCULATED) - [facility] 119 05/04/2016 [...] 05/04/2016 12:09 PM ALT-[facility] 13 10/14/2020 Hemoglobin AIC Results: No results found for: HEMOGLOBIN A1C documented in this encounter Plan of Treatment Upcoming Encounters Date Type Specialty Care Team Description 02/13/2021 Office Visit Rheumatology Carlos Alberto [place] MD [facility] [place] [address] [phone] 03/27/2021 Office Visit Hematology Oncology [place] MD [address] [place] [address] [phone] 05/02/2021 Office Visit Internal Medicine William Chavez MD [address] [place] [address] [phone] Health Maintenance Due Date Last Done Comments FOBT ANNUALLY,AGES 18-90 03/22/2017 03/22/2016, 09/26 Zoster Vaccines (3 of 3) 12/26/2020 10/31/2020, 12/25 Influenza Vaccine (FLU shot) (#1) 2021 03/15/2020, 03/24/2019, 05/22/2018, Additional history exists CKD PHOS USE SMARTSET 23177 03/15/2021 10, 10/22/2018, 05/04/2016 CKD GFR USE SMARTSET 33401 04/16/202110/14, 03/15/2020, 11/18/2019, Additional history exists CKD HGB USE SMARTSET 69667 10/14/202110/14, 11/18/2019, 10/22/2018, Additional history exists DIABETES [...] Documents on File Type Date Recorded Patient Ladle Filler Expl anation Advanced Directive Advanced Directive Advanced [...]
--- OUTSIDE RECORDS SUMMARY | 2023-01-29 05:06 | External Medical Summary | Summary of Care ---
Author Name Unknown Organization [place] [address] Care Team Providers Care Clearance Coordinator Name Role Phone William Chavez MD Primary Care Provider + Reason for Visit * Reason Onset Date Comments Medication Refill 02/11/2021 Encounter Details Date Type Department Care Team Description 02/11/2021 Refill General Internal Medicine [facility] [address] [place] [address] Brooke Patrick MD [address] [place] [address] [phone] H/O rheumatoid arthritis Allergies No Known Active Allergiesdocumented as of [...] (chronic kidney disease) stage III ([facility]) Take 1 Cap by mouth daily. 30 Cap 5 09/21/2020 Active predniSONE 5 MG Oral Tablet (Deltasone)Indicati ons:H/O rheumatoid arthritis Take 1 Tab by mouth daily. 30 Tab 5 02/13/2021 Active predniSONE (DELTASONE) 5 MG TabletIndications:H /O rheumatoid arthritis Take 1 Tab by mouth daily. 30 Tab 5 10/20/2019 02/11/2021 Discontinued( Refill) Cyanocobalamin 1000 MCG/ML Injection Solution (Cyanocobalamin)Ind ications:Pernicious anemia inject 1ml into a large muscle every month 1 mL 4 08/01/2020 02/11/2021 Discontinued( Refill) documented as of this encounter (statuses as [...] mRNA, LNP-s, No Pre serve, 2-Dose Series ([place] Water) 08/03/2020,07/13/2020 Pneumococcal Conjugate Vacc, 13 Valent (Prevnar) [...] Encounter - William Chavez MD - 02/13/2021 10:47 AM EDT Signed Prescriptions: Disp Refills predniSONE 5 MG Oral Tablet (Deltasone) 30 Tab 5 Sig: Take 1 Tab by mouth daily. Authorizing Provider: WILLIAM CHAVEZ * Telephone Encounter - Oksana Barksdale LPN - 02/13/2021 9:33 AM EDT Pending Prescriptions: Disp Refills predniSONE 5 MG Oral Tablet (Deltasone) 30 Tab 5 Sig: Take 1 Tab by mouth daily. * Telephone Encounter - Oksana Barksdale LPN - 02/13/2021 9:32 AM EDT Pending Prescriptions: Disp Refills predniSONE 5 MG Oral Tablet (Deltasone) 30 Tab 5 Sig: Take 1 Tab by mouth daily. 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 Bunion, left foot M21.612 Primary osteoarthritis of right hip M16.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 ([facility]) M05.79 Mixed hyperlipidemia E78.2 Thyroid [...] Office Visit Rheumatology Carlos Alberto Matthews MD [facility] [place] [address] [phone] 03/27/2021 Office Visit Hematology Oncology [place] Salas MD [address] [facility] [place] [address] [phone] 05/02/2021 Office Visit Internal Medicine William Chavez MD [address] [facility] [place] [address] [phone] Health Maintenance Due Date Last Done Comments FOBT ANNUALLY,AGES 18-90 03/22/2017 03/22/2016, 05 Zoster Vaccines (3 of 3) 12/26/2020 10/31/2020, 12/25 Influenza Vaccine (FLU shot) (#1) 2021 03/15/2020, 03/24/2019, 05/22/2018, Additional history exists CKD PHOS USE SMARTSET 57716 03/15/2021 10, 10/22/2018, 05/04/2016 CKD GFR USE SMARTSET 90940 04/16/202110/14, 03/15/2020, 11/18/2019, Additional history exists CKD HGB USE SMARTSET 12104 10/14/202110/14, 11/18/2019, 10/22/2018, Additional history exists DIABETES [...] history of arthritis documented in this encounter Advance Directives Documents on File Type Date Recorded Patient Freight Flow Sales Leader Expl anation Advanced Directive Advanced Directive [...]
--- OUTSIDE RECORDS SUMMARY | 2023-01-29 05:07 | External Medical Summary | Summary of Care ---
Author Name Unknown Organization [place] [address] Care Team Providers Care Biotechnologist Name Role Phone William Joseph MD Primary Care Provider + Reason for Visit * Reason Onset Date Comments NEW PATIENT 10/31/2020 NUBIA JONES Encounter Details Date Type Department Care Team Description 10/31/2020 Telephone Hematology/Oncology [facility] [address] [place] [address] South Salas MD [address] [place] [address] [phone] NEW PATIENT ([facility]) Allergies No Known Active Allergiesdocumented as of this encounter (statuses as of 10/31/2020) Medications Medication Sig Dispensed Refills Start Date End Date Status Cholecalciferol (VITAMIN D3) 50 MCG (1999 UT) Tablet Take 2,000 Units by mouth. Every 2 - 3 [...] mouth daily. 30 Cap 5 09/21/2020 Active Benazepril HCl 5 MG Oral Tablet (Lotensin)Indications :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) Take 1 Tab by mouth daily. 30 Tab 5 10/31/2020 Active documented as of this encounter (statuses as of 10/31/2020) Active Problems Problem Noted Date Thyroid nodule 08/10/2019 Mixed hyperlipidemia 12/17/2018 Rheumatoid [...] as of this encounter (statuses as of 10/31/2020) Resolved Problems Problem Noted Date Resolved Date Secondary hyperparathyroidism 08/10/2019 History of rheumatoid arthritis 09/04/2017 08/20/2018 History of rheumatoid arthritis 01/06/2016 07/27/2016 Kidney disease, chronic, stage III (GFR 30-59 ml /min) 08/09/2014 07/30/2017 Overview: Per CKD protocol #1 HTN, goal below 140/90 8 Kidney disease, chronic, stage III (GFR 30-59 ml /min) 03/24/2012 documented as of this encounter (statuses as of 10/31/2020) Immunizations Name Administration Dates Next Due COVID-19 [...] encounter Miscellaneous Notes * Telephone Encounter - Alfreda Land OSA - 10/31/2020 2:33 PM EDT Patient walked into office asking about making appt for Hematology. Patient stated that a referral had been put in for him. Looked and patient records and printed off referral. While patient was here, scheduled patient for new patient HEM APPT for 11/22 with Josue. documented in this encounter Plan of Treatment Upcoming Encounters Date Type Specialty Care Team Description 11/22/2020 Office Visit Hematology Oncology South Salas MD [address] [place] [address] [phone] 01/04/2021 Office Visit Nephrology Lisbeth Ward MD [address] [facility] [place] [address] [phone] 02/13/2021 Office Visit Rheumatology Carlos Alberto Matthews MD [address] [place] [address] [phone] 05/02/2021 Office Visit Internal Medicine William Joseph MD [address] [facility] [place] [address] [phone] Health Maintenance Due Date Last Done Comments FOBT ANNUALLY,AGES 18-90 03/22/2017 03/22/2016, 09/26 Zoster Vaccines (3 of 3) 12/26/2020 10/31/2020, 12/25 CKD PHOS USE SMARTSET 76804 03/15/202102/25, 10/22/2018, 05/04/2016 CKD GFR USE SMARTSET 94771 04/16/202110/14, 03/15/2020, 11/18/2019, Additional history exists CKD HGB USE SMARTSET 34349 10/14/202110/14, 11/18/2019, 10/22/2018, Additional history exists DIABETES SCREEN EVERY 3 YRS-AGE 45 AND ABOVE 10/15/2023 10/14/2020, 03/15/2020, 11/18/2019, Additional history exists DTaP,Tdap,and Td Vaccines (2 - Td) 01/10/2025 01/10/2015 Pneumococcal Vaccine: 65+ Years Completed 07/13/2015, 06/08/2013 Influenza Vaccine (FLU shot) Completed , 03/24/2019, 05/22/2018, Additional history exists COVID-19 Vaccine Completed 08/03/2020, 07/13/2020 MENINGOCOCCAL (MENACTRA/MENVEO) Aged Out No longer eligible based on patient's age to complete this topic documented as of this encounter Implants Not on filedocumented as of this encounter Advance Directives Documents on File Type Date Recorded Patient Internist Medical Doctor Md Expl anation Advanced Directive Advanced Directive Advanced Directive Advanced Directive Advanced Directive Advanced Directive Advanced Directive Advanced Directive Advanced Directive Advanced Directive Advanced Directive Advanced Directive Advanced Directive Advanced Directive Advanced Directive Advanced Directive Advanced Directive Advanced Directive Advanced Directive Advanced Directive Advanced Directive Advanced Directive Advanced Directive Advanced Directive Advanced Directive Advanced Directive
--- OUTSIDE RECORDS SUMMARY | 2023-01-29 05:07 | External Medical Summary | Summary of Care ---
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 Installer Name Role Phone William Joseph MD Primary Care Provider + Reason for Visit * Reason Comments Consultation * Evaluate & Treat - Unlimited Visits (Within 30 days (routine)) Status Reason Specialty Diagnoses / Procedures Referred By Contact Referred To Contact Pending Review Specialty Services Required Hematology/Oncol ogy / Hematology Oncology Diagnoses Abnormal SPEP William Joseph MD [address] [place] [id number] Encounter Details Date Type Department Care Team Description 11/22/2020 Office Visit Hematology/Oncology [address] [address] [place] Salas MD [address] [place] [address] [phone] MGUS (monoclonal gammopathy of unknown significance)* Allergies No Known Active Allergiesdocumented as of this encounter (statuses as of 11/22/2020) Medications Medication Sig Dispensed Refills Start Date [...] 06/22/2020 Active Cyanocobalamin 1000 MCG/ML Injection Solution (Cyanocobalamin)In [...] by mouth daily. 30 Tab 5 10/31/2020 11/22/2020 Discontinue d(Medicatio n List Clean Up) documented as of this encounter (statuses as of 11/22/2020) Active Problems Problem Noted Date MGUS (monoclonal [...] as of this encounter (statuses as of 11/22/2020) Resolved Problems Problem Noted Date Resolved Date Secondary hyperparathyroidism 08/10/2019 History of rheumatoid arthritis 09/04/2017 08/20/2018 History of rheumatoid arthritis 01/06/2016 07/27/2016 Kidney disease, chronic, stage III (GFR 30-59 ml /min) 08/09/2014 07/30/2017 Overview: Per CKD protocol #1 HTN, goal below 140/90 8 Kidney disease, chronic, stage III (GFR 30-59 ml /min) 03/24/2012 documented as of this encounter (statuses as of 11/22/2020) Immunizations Name Administration Dates Next Due COVID-19 [...] Sign Reading Time Taken Comments Blood Pressure 162/85 11/22/2020 2:25 PM EDT Pulse 74 11/22/2020 2:25 PM EDT Temperature 36.8 C (98.2 F) 11/22/2020 2:25 PM ED T Respiratory Rate 16 11/22/2020 2:25 PM EDT Oxygen Saturation 98% 11/22/2020 2:25 PM EDT Inhaled Oxygen Concentration - - Weight 74.4 kg (164 lb) 11/22/2020 2:25 PM EDT Height 168.9 cm (5' 6.5") 11/22/2020 2:25 PM EDT Body Mass Index 26.07 11/22/2020 2:25 PM EDT documented in this encounter Progress Notes * South Salas MD - 11/22/2020 2:31 PM EDT Outpatient Consult Note Data Source: Patient, Epic record. 11/22/2020 2:31 PM Ignacio Garcia [id number] 75 year old MD William Reyes MD Patient Encounter: HEMATOLOGY/ONCOLOGY [facility] Reason for consult: Abnormal SPEP HPI: 75-year-old [...] is negative for any hematologic oncology problem Past Medical History: Diagnosis Date Bronchiectasis (HCC) 12/08/2013 Encounter for long-term (current) use of other medications 07/27/2010 History of rheumatoid arthritis 01/06/2016 HTN, goal below 140/90 Pernicious anemia 08/24/2010 Thyroid nodule 08/10/2019 Current Outpatient Medications Medication Sig Dispense Refill amLODIPine Besy-Benazepril HCl 2.5-10 MG Oral Capsule (Lotrel) Take 1 Cap by mouth daily. 30 Cap 5 Cyanocobalamin 1000 MCG/ML Injection Solution (Cyanocobalamin) inject 1ml into a large muscle everymonth 1 mL 4 Flovent HFA 44 MCG/ACT Inhalation Aerosol (fluticasone) INHALE ONE PUFF BY MOUTH TWICE DAILY 10.6 g5 benzonatate (TESSALON PERLES) 100 MG Capsule Take 1 Cap by mouth 2 times a day as needed for Cough.Do not cut, crush, or chew. 50 Cap 2 predniSONE (DELTASONE) 5 MG Tablet Take 1 Tab by mouth daily. (Patient taking differently: Take 10-15 mg by mouth daily as needed (RA Flare up).) 30 Tab 5 Cholecalciferol (VITAMIN D3) 50 MCG (2000 UT) Tablet Take 1,000 Units by mouth. 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 HEENT: No change in visual acuity, blurred or double vision. No epistaxis, facial pain, nasal discharge or change in hearing. Denies dysphagia, no muscosal ulceration, or sores noted. Cardiovascular: No chest pain, ANDERSEN, or palpitations Respiratory: No shortness of breath, cough, hemoptysis, or pleuritic chest pain Gastrointestinal: No abdominal pain, nausea, vomiting, diarrhea, rectal pain or bleeding Genitourinary: Denies Hematuria or dysuria Musculoskeletal: No bone pain Skin: No skin rash or lesions noted Neurologic: No numbness, weakness, neuropathic pain or change in cognitive function Psychiatric: No vegetative signs of depression Endocrine: No symptoms of hypothyroidism or hyperglycemia Hematologic: No bleeding or lymph nodes noted As mentioned above, all other systems were reviewed in full and are unremarkable. Review of patient's allergies indicates: No Known Allergies PHYSICAL EXAMINATION: General Appearance: Healthy appearing patient in no acute distress BP 162/85 (BP Site: Left Arm, BP Position: Sitting, BP Cuff Size: Regular) | Pulse 74 | Temp 36.8 C (98.2 F) (Infrared ) | Resp 16 | Ht 1.689 m (5' 6.5") | Wt 74.4 kg (164 lb) | SpO2 98% | BMI 26.07 kg/m | BSA 1.87 m Vitals were reviewed. HEENT: No oral or pharyngeal masses, ulceration or thrush noted, no sinus tenderness. Neck is supple with no thyromegaly or JVD noted. Lymph Nodes: No lymphadenopathy noted in the occipital, pre and post auricular, cervical, supra andinfraclavicular, axillary, epitrochlear, inguinal, and popliteal region. Lungs/Thorax: Clear to auscultation, no accessory muscles of respiration being used. Heart: Regular rate and rhythm, normal S1, S2, no appreciable murmurs, rubs, gallops Abdomen: Soft, nontender, bowel sounds present, no appreciable hepatosplenomegaly, no palpable masses Extremeties: Good pulses bilaterally, no peripheral edema. Skin: Normal skin tone with no rash, petechiae, ecchymosis noted. Musculoskeletal: No pain on palpation over bony prominence, no edema, no evidence of gout, no jointor bony deformity Neurologic: Grossly intact ASSESSMENT: 75-year-old male with past medical history significant for hypertension, CKD stage 3, rheumatoid arthritis thyroid nodule was referred to me because of the abnormal SPEP. Serum protein electrophoresis revealed abnormal protein band 1 pattern consistent with an acute phase reaction. There is also elevated beta 2 microglobulin level most likely because of the CKD. On immunofixation there was a faint band in IgG lambda. Clinically patient is doing well in excellent performance status and physical examination is unremarkable. Patient may have a MGUS. Discussed with the patient in detail about diagnosis prognosis reviewed all the available blood test result with him. The best option at this point would be to monitorthe patient clinically. He will have a repeat blood test done in 4 months for PLAN: Return clinic in 4 months with CBC, CMP, myeloma panel and 24 hour urine collection for urine electrophoresis and immunofixation with free kappa and lambda. I spent a total of 45 minutes on the date of service in preparation, delivery, and documentation ofthe care provided to Ignacio Garcia excluding any time spent in the performance of separately billedservices. All lab results were shown and discussed with patient. The patient voiced understanding of all of the above. All questions and concerns were addressed in an apparently satisfactory manner. South Salas MD (This note was completed using the dictation program Fluency Direct. As such, there may be misspellings, word substitutions, or other variations that should not change the essence of the clinical content of this encounter note. If there is need for further clarification, please direct questions to the provider listed above.) documented in this encounter Nursing Notes * Evi Mcgrath CMA - 11/22/2020 2:25 PM EDT Patient identifed by name and birthdate Do you have any concerns about pain management for today's visit? No Living Will or Advance Directive for Health Care as noted on the problem list. [facility] is a way you can talk to your provider on line through e-mail. Would you like to sign up? I can activate it for you? ALREADY ACTIVE Filed Vitals: 11/22/20 1425 BP: 162/85 Pulse: 74 Resp: 16 Temp: 36.8 C (98.2 F) TempSrc: Infrared SpO2: 98% Weight: 74.4 kg (164 lb) Height: 1.689 m (5' 6.5") documented in this encounter Plan of Treatment Upcoming Encounters Date Type Specialty Care Team Description 01/04/2021 Office Visit Nephrology Lisbeth Ward MD [address] [place] [address] [phone] 02/13/2021 Office Visit Rheumatology Carlos Alberto Matthews MD [address] [place] [address] [phone] 03/27/2021 Office Visit Hematology Oncology South Salas MD [address] [place], [place] [address] 05/02/2021 Office Visit Internal Medicine William Joseph MD [address] [place] [address] [phone] Scheduled Orders Name Type Priority Associated Diagnoses Orde r Schedule [id number], SERUM Lab Routine MGUS (monoclonal gammopathy of unknown significance) Expected: 03/24/2021, Expires: 05/24/2021 CBC WITH WBC DIFFERENTIAL Lab Routine MGUS (monoclonal gammopathy of unknown significance) Expected: 03/24/2021, Expires: 05/24/2021 COMPREHENSIVE METABOLIC PANEL Lab Routine MGUS (monoclonal gammopathy of unknown significance) Expected: 03/24/2021, Expires: 05/24/2021 SERUM IMMUNOFIXATION Lab Routine MGUS (monoclonal gammopathy of unknown significance) Expected: 03/24/2021, Expires: 05/24/2021 IMMUNOGLOBULIN QUANTITATIVE Lab Routine MGUS (monoclonal gammopathy of unknown significance) Expected: 03/24/2021, Expires: 05/24/2021 FREE KAPPA & LAMBDA, WITH K/L RATIO, G/24 HR Lab Routine MGUS (monoclonal gammopathy of unknown significance) Expected: 03/24/2021, Expires: 05/24/2021 URINE PROTEIN ELECTROPHORESIS REFLEX PROFILE, 24 HOUR URINE Lab Routine MGUS (monoclonal gammopathy of unknown significance) Expected: 03/24/2021, Expires: 05/24/2021 SERUM FREE LIGHT CHAINS Lab Routine MGUS (monoclonal gammopathy of unknown significance) Expected: 03/24/2021, Expires: 05/24/2021 SERUM PROTEIN ELECTROPHORESIS REFLEX PROFILE Lab Routine MGUS (monoclonal gammopathy of unknown significance) Expected: 03/24/2021, Expires: 05/24/2021 URINE IMMUNOFIXATION, BENCE PEREZ PROTEIN, RANDOM URINE Lab Routine MGUS (monoclonal gammopathy of unknown significance) Expected: 03/24/2021, Expires: 05/24/2021 Health Maintenance Due Date Last Done Comments FOBT ANNUALLY,AGES 18-90 03/22/2017 03/22/2016, 09/26 Zoster Vaccines (3 of 3) 12/26/2020 10/31/2020, 12/25 CKD PHOS USE SMARTSET 23198 03/15/202102/25, 10/22/2018, 05/04/2016 CKD GFR USE SMARTSET 83762 04/16/202110/14, 03/15/2020, 11/18/2019, Additional history exists CKD HGB USE SMARTSET 54484 10/14/202110/14, 11/18/2019, 10/22/2018, Additional history exists DIABETES [...] Documents on File Type Date Recorded 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
--- OUTSIDE RECORDS SUMMARY | 2023-01-29 05:07 | External Medical Summary | Summary of Care ---
Author Name Unknown Organization [place] [address] Care Team Providers Care Pepper Picker Name Role Phone William Joseph MD Primary Care Provider + Reason for Visit * Reason Comments Follow Up has record of BP vivian dings--feelign good Encounter Details Date Type Department Care Team Description 10/31/2020 Office Visit General Internal Medicine [facility] [address] [place] [address] Juan Carlos Barry PA-C [address] [facility] [place] [id number] 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)*; Secondary hyperparathyroidism (HCC); Thoracic aortic aneurysm without rupture (HCC); Need for vaccination for zoster Allergies No Known Active Allergiesdocumented as of [...] mouth daily. 30 Tab 5 10/31/2020 Active Benazepril HCl 10 MG Oral Tablet (Lotensin)Indicati ons: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) Take 1 Tab by mouth daily. 30 Tab 5 09/09/2020 Discontinued documented as of this encounter (statuses [...] Sign Reading Time Taken Comments Blood Pressure 138/74 10/31/2020 1:52 PM EDT Pulse 72 10/31/2020 1:52 PM EDT Temperature 36.8 C (98.2 F) 10/31/2020 1:52 PM ED T Respiratory Rate 16 10/31/2020 1:52 PM EDT Oxygen Saturation - - Inhaled Oxygen Concentration - - Weight 75.2 kg (165 lb 12.8 oz) 10/31/2020 1:52 PM EDT Height 168.6 cm (5' 6.38") 10/31/2020 1:52 PM ED T Body Mass Index 26.46 10/31/2020 1:52 PM EDT documented in this encounter Progress Notes * Eliana Moreno LPN - 10/31/2020 2:20 PM EDT Pre-Administration Time Out Procedure Performed: Yes Patient Identified (Ask Name/Date of ): Yes Does the patient have a fever greater than 101 degrees today? No Patient allergic to latex? No Has the patient ever fainted after receiving an injection? No VFC Stock: No Immunization(s) verified: Yes, Immunization Name: Shingrix, VIS Sheet(s) given: Yes Verified Side and Site: Yes Verified Shot(s) with Parent(s)/Patient: Yes * Venice Church LPN - 10/31/2020 1:50 PM EDT Chief Complaint Patient presents with Follow Up has record of BP readings--feelign good * Juan Carlos Barry PA-C - 10/31/2020 1:47 PM EDT Subjective: Ignacio Garcia is a 75 year old male. Chief Complaint Patient presents with Follow Up has record of BP readings--feelign good HPI: 75 y/o male with pernicious anemia, TAA, CKD III, HTN, RA, HLD, secondary hyperparathyroidism seen today for follow up on blood pressure. Lotensin 10 mg added in to lotrel 2.5-10 mg pill daily. Patient has been taking the Lotrel consistently but more recently intermittently taking the additional 10 mg of Lotensin. He does not like the feeling he gets when blood pressure goes down in the 120s. Blood pressure records present today with average of 130/80. Denies fever, chills, sweats, chest pain, SOB. PMH: Patient Active Problem List Diagnosis Code Encounter for therapeutic drug monitoring Z51.81 Pernicious anemia D51.0 Bronchiectasis ([facility]) J47.9 Thoracic aortic aneurysm ([facility]) I71.2 Benign hypertension with CKD (chronic kidney disease) stage III ([facility]) I12.9, N18.30 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 Bunion, left foot M21.612 Primary osteoarthritis of right hip M16.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 ([facility]) M05.79 Mixed hyperlipidemia E78.2 Thyroid nodule E04.1 Secondary hyperparathyroidism ([facility]) N25.81 Current Outpatient Medications Medication Sig Dispense Refill Benazepril HCl 5 MG Oral Tablet (Lotensin) Take 1 Tab by mouth daily. 30 Tab 5 amLODIPine Besy-Benazepril HCl 2.5-10 MG Oral Capsule (Lotrel) Take 1 Cap by mouth daily. 30 Cap 5 Cyanocobalamin 1000 MCG/ML Injection Solution (Cyanocobalamin) inject 1ml into a large muscle every month 1 mL 4 Flovent HFA 44 MCG/ACT Inhalation Aerosol (fluticasone) INHALE ONE PUFF BY MOUTH TWICE DAILY 10.6 g 5 Cholecalciferol (VITAMIN D3) 50 MCG (2000 UT) Tablet Take 2,000 Units by mouth. [...] needed (RA Flare up).) 30 Tab 5 Review of patient's allergies indicates: No Known Allergies No other ROS reviewed other than mentioned in HPI. Objective: BP 138/74 | Pulse 72 | Temp 36.8 C (98.2 F) | Resp 16 | Ht 1.686 m (5' 6.38") | Wt 75.2 kg (165lb 12.8 oz) | BMI 26.46 kg/m | BSA 1.88 m Results for orders placed or performed in visit on 09/09/20 LIPID PANEL WITH DIRECT LDL IF TG IS HIGH Result Value Ref Range TRIGLYCERIDES-OUTSIDE LAB 88 <150 MG/DL CHOLESTEROL-OUTSIDE LAB 171 <200 MG/DL HDL-OUTSIDE LAB 43 >=40 MG/DL CHOL/HDL RATIO-OUTSIDE LAB 4.0 <5.0 CALC LDL (CALCULATED)-OUTSIDE LAB 110 (A) <100 MG/DL COMPREHENSIVE METABOLIC PANEL Result Value Ref Range CREATININE-OUTSIDE LAB 1.32 (A) 0.70 - 1.18 MG/DL EGFR-OUTSIDE LAB 52 (A) >=60 ML/MIN/1.73M2 POTASSIUM-OUTSIDE LAB 4.6 3.5 - 5.3 MMOL/L GLUCOSE-OUTSIDE LAB 83 65 - 99 MG/DL ALT-OUTSIDE LAB 13 9 - 46 U/L TSH Result Value Ref Range TSH - OUTSIDE LAB 1.34 0.40 - 4.50 MIU/L CBC WITH WBC DIFFERENTIAL Result Value Ref Range HEMOGLOBIN-OUTSIDE LAB 15.8 13.2 - 17.1 G/DL Physical Exam: Constitutional: No acute distress. Head: normocephalic, atraumatic Eyes: PERRL with intact EOM, no scleral icterus, injection, or nystagmus noted. ASSESSMENT: 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) (Primary) - Benazepril HCl 5 MG Oral Tablet (Lotensin); Take 1 Tab by mouth daily. Patient poor with compliance in regard to consistently taking recommended regimen. Did not like additional 10 mg of Lotensin. Will decrease to 5 mg. Advised on taking regularly. Continue to monitor BP and send month worth of data. Recommend stricter control of BP given history of aortic aneurysm that he has not elected to have follow up imaging on. Secondary hyperparathyroidism (HCC) Looks to have corrected with Vit D correction. Will remove from problem list. Thoracic aortic aneurysm without rupture (HCC) Need for vaccination for zoster - ZOSTER VACCINE RECOMB, 2 DOSE, IM (SHINGRIX) Follow-up: Return in 6 months (on 05/02/2021), or if symptoms worsen or fail to improve. | Check-outnote: Please reach out to hematology schedule hematology evaluation 6 months with PCP Juan Carlos Barry PA-C documented in this encounter Plan of Treatment Upcoming Encounters Date Type Specialty Care Team Description 01/04/2021 Office Visit Nephrology Lisbeth Ward MD [address] [place] [address] [phone] 02/13/2021 Office Visit Rheumatology Carlos Alberto Matthews MD [address] [facility] [place] [address] [phone] 05/02/2021 Office Visit Internal Medicine William Joseph MD [address] [facility] [place] [address] [phone] Health Maintenance Due Date Last Done Comments FOBT ANNUALLY,AGES 18-90 03/22/2017 03/22/2016, 09/26 Zoster Vaccines (3 of 3) 12/26/2020 10/31/2020, 12/25 CKD PHOS USE SMARTSET 44107 03/15/202102/25, 10/22/2018, 05/04/2016 CKD GFR USE SMARTSET 85012 04/16/202110/14, 03/15/2020, 11/18/2019, Additional history exists CKD HGB USE SMARTSET 56176 10/14/202110/14, 11/18/2019, 10/22/2018, Additional history exists DIABETES [...] stage I through stage IV, or unspecified Secondary hyperparathyroidism (HCC) Secondary hyperparathyroidism (of renal origin) Thoracic aortic aneurysm without rupture (HCC) Thoracic aneurysm without mention of rupture Need for vaccination for zoster Need for prophylactic vaccination and inoculation against other viral diseases documented in this encounter Advance Directives Documents on File Type Date 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
--- OUTSIDE RECORDS SUMMARY | 2023-01-29 05:07 | External Medical Summary | Summary of Care ---
Author Name Unknown Organization [place] [address] Care Team Providers Care Sql Server Developer Name Role Phone William Joseph MD Primary Care Provider + Reason for Visit * Reason Comments Follow Up has record of BP vivian dings--feelign good Encounter Details Date Type Department Care Team Description 10/31/2020 Office Visit General Internal Medicine [facility] 200 [facility] [place] [address] Juan Carlos Barry PA-C 200 [facility] [place] [id number] Benign hypertension with CKD (chronic kidney disease) [...] drug monitoring Z51.81 Pernicious anemia D51.0 Bronchiectasis ([facility]) J47.9 Thoracic aortic aneurysm ([facility]) I71.2 Benign hypertension with CKD (chronic kidney disease) stage III ([facility]) I12.9, N18.30 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 Bunion, left foot M21.612 Primary osteoarthritis of right hip M16.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 ([facility]) M05.79 Mixed hyperlipidemia E78.2 Thyroid nodule E04.1 Secondary hyperparathyroidism ([facility]) N25.81 Current Outpatient Medications Medication Sig Dispense [...] Visit Hematology Oncology [place] Salas MD 200 [place] [address] [phone] 01/04/2021 Office Visit Nephrology Lisbeth Ward MD 200 [place] [address] [phone] 02/13/2021 Office Visit Rheumatology Carlos Alberto Matthews MD [address] [place] [address] [phone] 05/02/2021 Office Visit Internal Medicine William Joseph MD 200 [place] [address] [phone] Health Maintenance Due Date Last Done Comments FOBT ANNUALLY,AGES 18-90 03/22/2017 03/22/2016, 09/26 Zoster Vaccines (3 of 3) 12/26/2020 10/31/2020, 12/25 CKD PHOS USE SMARTSET 99440 03/15/202102/25, 10/22/2018, 05/04/2016 CKD GFR USE SMARTSET 78040 04/16/202110/14, 03/15/2020, 11/18/2019, Additional history exists CKD HGB USE SMARTSET 09377 10/14/202110/14, 11/18/2019, 10/22/2018, Additional history exists DIABETES [...] Documents on File Type Date Recorded Patient Dental Technician Expl anation Advanced Directive Advanced Directive Advanced Directive Advanced Directive Advanced Directive Advanced Directive Advanced Directive Advanced Directive Advanced Directive Advanced Directive Advanced Directive Advanced Directive Advanced Directive Advanced Directive Advanced Directive Advanced Directive Advanced Directive Advanced Directive Advanced Directive Advanced Directive Advanced Directive Advanced Directive Advanced Directive Advanced Directive Advanced Directive Advanced Directive
--- OUTSIDE RECORDS SUMMARY | 2023-01-29 05:07 | External Medical Summary | Summary of Care ---
Author Name Unknown Organization [place] [address] Care Team Providers Care Automobile Tester Name Role Phone William Chavez MD Primary Care Provider + Reason for Visit * Reason Onset Date Comments Medication Refill 09/21/2020 Encounter Details Date Type Department Care Team Description 09/21/2020 Refill General Internal Medicine [facility] [address] [place] [address] Juan Carlos Barry PA-C 200 [facility] [place] [id number] Benign hypertension with CKD (chronic kidney disease) stage III Allergies No Known Active Allergiesdocumented as of this encounter (statuses as of 09/21/2020) Medications Medication Sig Dispensed Refills Start Date [...] every month 1 mL 4 08/01/2020 Active Benazepril HCl 10 MG Oral Tablet (Lotensin)Indicati ons: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) Take 1 Tab by mouth daily. 30 Tab 5 09/09/2020 Active amLODIPine Besy-Benazepril HCl 2.5-10 MG Oral Capsule (Lotrel)Indication s: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) Take 1 Cap by mouth daily. 30 Cap 5 09/21/2020 Active amLODIPine Besy-Benazepril HCl 2.5-10 MG Oral Capsule (LOTREL)Indication s: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) Take 1 Cap by mouth daily. 30 Cap 5 03/21/2020 09/21/2020 Discontinue d(Refill) documented as of this encounter (statuses as of 09/21/2020) Active Problems Problem Noted Date Thyroid nodule 08/10/2019 Secondary hyperparathyroidism 08/10/2019 Mixed hyperlipidemia 12/17/2018 Rheumatoid arthritis involvi [...] as of this encounter (statuses as of 09/21/2020) Resolved Problems Problem Noted Date Resolved Date History of rheumatoid arthritis 09/04/2017 08/20/2018 History of rheumatoid arthritis 01/06/2016 07/27/2016 Kidney disease, chronic, stage III (GFR 30-59 ml /min) 08/09/2014 07/30/2017 Overview: Per CKD protocol #1 HTN, goal below 140/90 03/06/201 8 Kidney disease, chronic, stage III (GFR 30-59 ml /min) 03/24/2012 documented as of this encounter (statuses as of 09/21/2020) Immunizations Name Administration Dates Next Due COVID-19 [...] lent, No Preserve, IM 05/04/2016 Seasonal Influenza, Trivalen t, Adjuvanted, 65+ yrs 03/24/2019 Seasonal Influenza, Trivalen t, with Preserve, 3yr & Above, Split 06/05/2017,06/12/2015,06/01/2014,06/08,03/19/2013(Deferred: Patient Refused - not interested) TDAP (age 10 and older)(Boostrix) 01/10/2015 Varicella Zoster Vaccine (Adult) 01/10/2015 documented as of this encounter Social History [...] Telephone Encounter - William Chavez MD - 09/21/2020 3:47 PM EDT Signed Prescriptions: Disp Refills amLODIPine Besy-Benazepril HCl 2.5-10 MG O*30 Cap 5 Sig: Take 1 Cap by mouth daily. Authorizing Provider: WILLIAM CHAVEZ * Telephone Encounter - Rosario Alvarez LPN - 09/21/2020 3:34 PM EDT Pending Prescriptions: Disp Refills amLODIPine Besy-Benazepril HCl 2.5-10 MG *30 Cap 5 Sig: Take 1 Cap by mouth daily. Last Office/Telemedicine Visit: 09/09/2020 Next Office Visit: 10/21/2020 Scheduled Provider(s): Juan Carlos Barry PA-C Last date the medication was ordered: 03.21.2020 Patient Active Problem List Diagnosis Code Encounter for therapeutic drug monitoring Z51.81 Pernicious anemia D51.0 Bronchiectasis (HCC) J47.9 Thoracic aortic aneurysm (HCC) I71.2 Benign hypertension with CKD (chronic kidney disease) stage III I12.9, N18.30 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 Bunion, left foot M21.612 Primary osteoarthritis of right hip M16.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 (HCC) M05.79 Mixed hyperlipidemia E78.2 Thyroid nodule E04.1 Secondary hyperparathyroidism ([facility]) N25.81 Labs: Lab Results Component Value Date/Time CREATININE - [facility] 1.3 (H) 05/04/2016 12:09 PM CREATININE, RANDOM URINE - [facility] 94 08/03/2016 01:51 PM CREATININE-[facility] 1.15 03/15/2020 Lab Results Component Value Date/Time POTASSIUM - [facility] 4.6 05/04/2016 12:09 PM POTASSIUM-[facility] 4.5 03/15/2020 Lab Results Component Value Date/Time TSH - [facility] 0.82 06/24/2013 12:14 PM TSH - [facility] 0.87 10/22/2018 Lab Results Component Value Date/Time LDL (CALCULATED)-[facility] 108 (H) 03/15/2020 LDL (CALCULATED)-[facility] 125 (A) 11/18/2019 LDL CHOLESTEROL (CALCULATED) - [facility] 119 05/04/2016 [...] [facility] 10 05/04/2016 12:09 PM ALT-[facility] 11 03/15/2020 Hemoglobin AIC Results: No results found for: HEMOGLOBIN A1C * Telephone Encounter - Rosario Alvarez LPN - 09/21/2020 3:34 PM EDT Message from [employer]: Refills have been requested for the following medications: amLODIPine Besy-Benazepril HCl 2.5-10 MG Oral Capsule (LOTREL) [Juan Carlos Barry PA-C] Patient Comment: it seems that this Rx wasn't refilled when the 10MG Benazepril was ordered in addition to it. Preferred pharmacy: [id number] documented in this encounter Plan of Treatment Upcoming Encounters Date Type Specialty Care Team Description 10/21/2020 Office Visit Internal Medicine [facility] [address] [phone] 01/04/2021 Office Visit Nephrology [facility] [address] [phone] 02/13/2021 Office Visit Rheumatology Carlos Alberto Matthews MD [address] [place], [place] [address] [address] [phone] Health Maintenance Due Date Last Done Comments Zoster Vaccines (2 of 3) 03/07/2015 01/10/2015 FOBT ANNUALLY,AGES 18-90 03/22/2017 03/22/2016, 09/26 CKD GFR USE SMARTSET 49910 09/13/202003/15, 11/18/2019, 11/11/2018, Additional history exists CKD HGB USE SMARTSET 10041 11/17/202011/17, 10/22/2018, 07/06/2016, Additional history exists CKD PHOS USE SMARTSET 75649 03/15/202102/25, 10/22/2018, 05/04/2016 DIABETES SCREEN EVERY 3 YRS-AGE 45 AND ABOVE 03/15/2023 03/15/2020, 11/18/2019, 11/11/2018, Additional history exists DTaP,Tdap,and Td Vaccines (2 [...] Documents on File Type Date Recorded Patient Boxcar Weigher Expl anation Advanced Directive Advanced Directive Advanced Directive Advanced Directive Advanced Directive Advanced Directive Advanced Directive Advanced Directive Advanced Directive Advanced Directive Advanced Directive Advanced Directive Advanced Directive Advanced Directive Advanced Directive Advanced Directive Advanced Directive Advanced Directive Advanced Directive Advanced Directive Advanced Directive Advanced Directive
--- OUTSIDE RECORDS SUMMARY | 2023-01-29 05:07 | External Medical Summary | Summary of Care ---
Author Name Unknown Organization [place] [address] Care Team Providers Care Prototype Engineer Name Role Phone William Joseph MD Primary Care Provider + Reason for Visit * Reason Comments eRx-Medication Refill Encounter Details Date Type Department Care Team Description 09/21/2020 Refill General Internal Medicine [facility] 200 [facility] [place] [id number] Juan Carlos Barry PA-C [address] [place] [address] [phone] Benign hypertension with CKD (chronic kidney disease) stage III Allergies No Known Active Allergiesdocumented as of this encounter (statuses as of 09/22/2020) Medications Medication Sig Dispensed Refills Start Date [...] Active Benazepril HCl 10 MG Oral Tablet (Lotensin)Indications :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) Take 1 Tab by mouth daily. 30 Tab 5 09/09/2020 Active amLODIPine Besy-Benazepril HCl 2.5-10 MG Oral Capsule (Lotrel)Indications:B enign hypertension 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) Take 1 Cap by mouth daily. 30 Cap 5 09/21/2020 Active documented as of this encounter (statuses as of 09/22/2020) Active Problems Problem Noted Date Thyroid nodule [...] as of this encounter (statuses as of 09/22/2020) Resolved Problems Problem Noted Date Resolved Date History of rheumatoid arthritis 09/04/2017 08/20/2018 History of rheumatoid arthritis 01/06/2016 07/27/2016 Kidney disease, chronic, stage III (GFR 30-59 ml /min) 08/09/2014 07/30/2017 Overview: Per CKD protocol #1 HTN, goal below 140/90 8 Kidney disease, chronic, stage III (GFR 30-59 ml /min) 03/24/2012 documented as of this encounter (statuses as of 09/22/2020) Immunizations Name Administration Dates Next Due COVID-19 mRNA, LNP-s, No Pre serve, 2-Dose Series (ICEX) 08/03/2020,07/13/2020 Pneumococcal Conjugate Vacc, 13 Valent (Prevnar) [...] encounter Miscellaneous Notes * Telephone Encounter - Mary Kate Mendieta, [facility] - 09/22/2020 9:35 AM EDT Refused Prescriptions: Disp Refills amLODIPine Besy-Benazepril HCl 2.5-10 MG O*30 Cap 0 Sig: TAKE ONE CAPSULE BY MOUTH DAILY Refused By: MARY KATE MENDIETA Reason for Refusal: Duplicate Request Electronically signed by Mary Kate Mendieta [facility] at 09/22/2020 9:35 AM EDT * Telephone Encounter - Mary Kate Mendieta RPh - 09/22/2020 9:35 AM EDT Duplicate documented in this encounter Plan of Treatment Upcoming Encounters Date Type Specialty Care Team Description 10/21/2020 Office Visit Internal Medicine Juan Carlos Barry PA-C 200 [place] [address] 01/04/2021 Office Visit Nephrology Lisbeth Ward MD 200 [place] [address] 02/13/2021 Office Visit Rheumatology OpCarlos Alberto hurley MD [address] [place] [address] [phone] Health Maintenance Due Date Last Done Comments Zoster Vaccines (2 of 3) 03/07/2015 01/10/2015 FOBT ANNUALLY,AGES 18-90 03/22/2017 03/22/2016, 09/26 CKD GFR USE SMARTSET 41137 09/13/202003/15, 11/18/2019, 11/11/2018, Additional history exists CKD HGB USE SMARTSET 78018 11/17/202011/17, 10/22/2018, 07/06/2016, Additional history exists CKD PHOS USE SMARTSET 44199 03/15/202102/25, 10/22/2018, 05/04/2016 DIABETES SCREEN EVERY 3 [...] Documents on File Type Date Recorded Patient Associate Professor Of Sociology Expl anation Advanced Directive Advanced Directive Advanced Directive Advanced Directive Advanced Directive Advanced Directive Advanced Directive Advanced Directive Advanced Directive Advanced Directive Advanced Directive Advanced Directive Advanced Directive Advanced Directive Advanced Directive Advanced Directive Advanced Directive Advanced Directive Advanced Directive Advanced Directive Advanced Directive Advanced Directive
--- OUTSIDE RECORDS SUMMARY | 2023-01-29 05:07 | External Medical Summary | Summary of Care ---
Author Name Unknown Organization [place] [address] Care Team Providers Care Biomedical Engineer Name Role Phone William Joseph MD Primary Care Provider + Reason for Visit * Reason Onset Date Comments Appointment 11/21/2020 NEW PATIENT APPT Encounter Details Date Type Department Care Team Description 11/21/2020 Telephone Hematology/Oncology [facility] 200 [place] [address] [place] Salas MD 200 [place] [address] [phone] Appointment (NEW PATIENT APPT) Allergies No Known Active Allergiesdocumented as of this encounter (statuses as of 11/21/2020) Medications Medication Sig Dispensed Refills Start Date [...] as of this encounter (statuses as of 11/21/2020) Active Problems Problem Noted Date Thyroid nodule [...] as of this encounter (statuses as of 11/21/2020) Resolved Problems Problem Noted Date Resolved Date Secondary hyperparathyroidism 08/10/2019 History of rheumatoid arthritis 09/04/2017 08/20/2018 History of rheumatoid arthritis 01/06/2016 07/27/2016 Kidney disease, chronic, stage III (GFR 30-59 ml /min) 08/09/2014 07/30/2017 Overview: Per CKD protocol #1 HTN, goal below 140/90 8 Kidney disease, chronic, stage III (GFR 30-59 ml /min) 03/24/2012 documented as of this encounter (statuses as of 11/21/2020) Immunizations Name Administration Dates Next Due COVID-19 mRNA, LNP-s, No Pre serve, 2-Dose Series (Cloopen) 08/03/2020,07/13/2020 Pneumococcal Conjugate Vacc, 13 Valent (Prevnar) [...] encounter Miscellaneous Notes * Telephone Encounter - Evi Mcgrath CMA - 11/21/2020 11:52 AM EDT Called cell and spoke with Ignacio and confirmed appt for 11/22 arrival time 215pm for a 230appt with Dr. Salas documented in this encounter Plan of Treatment Upcoming Encounters Date Type Specialty Care Team Description 11/22/2020 Office Visit Hematology Oncology South Salas MD 200 [place] [address] [phone] 01/04/2021 Office Visit Nephrology Lisbeth Ward MD 200 [facility] [place] [address] [phone] 02/13/2021 Office Visit Rheumatology Carlos Alberto Matthews MD [address] [facility] [place] [address] [phone] 05/02/2021 Office Visit Internal Medicine William Joseph MD [address] [facility] [place] [address] [phone] Health Maintenance Due Date Last Done Comments FOBT ANNUALLY,AGES 18-90 03/22/2017 03/22/2016, 09/26 Zoster Vaccines (3 of 3) 12/26/2020 10/31/2020, 12/25 CKD PHOS USE SMARTSET 07758 03/15/202102/25, 10/22/2018, 05/04/2016 CKD GFR USE SMARTSET 81956 04/16/202110/14, 03/15/2020, 11/18/2019, Additional history exists CKD HGB USE SMARTSET 53422 10/14/202110/14, 11/18/2019, 10/22/2018, Additional history exists DIABETES [...] Documents on File Type Date Recorded Patient Language Interpreter Expl anation Advanced Directive Advanced Directive Advanced Directive Advanced Directive Advanced Directive Advanced Directive Advanced Directive Advanced Directive Advanced Directive Advanced Directive Advanced Directive Advanced Directive Advanced Directive Advanced Directive Advanced Directive Advanced Directive Advanced Directive Advanced Directive Advanced Directive Advanced Directive Advanced Directive Advanced Directive Advanced Directive Advanced Directive Advanced Directive Advanced Directive
--- OUTSIDE RECORDS SUMMARY | 2023-01-29 05:07 | External Medical Summary | Summary of Care ---
Author Name Unknown Organization [place] [address] Care Team Providers Care Filler Leaf Cutter Long Name Role Phone William Joseph MD Primary Care Provider + Reason for Referral * Evaluate & Treat - Unlimited Visits (Within 30 days (routine)) Status Reason Specialty Diagnoses / Procedures Referred By Contact Referred To Contact Pending Review Specialty Services Required Hematology/Oncol ogy / Hematology Oncology Diagnoses Abnormal SPEP William Joseph MD [address] [place] [address] Question Answer Referral Priority Within 30 days (routine) Reason for Referral Abnormal SPEP or Protein Comments See [facility] labs Electronically signed by William Joseph MD at Reason for Visit * Reason Onset Date Comments Test Results 10/25/2020 Encounter Details Date Type Department Care Team Description 10/25/2020 Telephone General Internal Medicine [facility] [place] [facility] [place] [address] William Joseph MD [address] [facility] [place] [address] [phone] Test Results Allergies No Known Active Allergiesdocumented as of this encounter (statuses as of 10/25/2020) Medications Medication Sig Dispensed Refills Start Date End Date Status Cholecalciferol (VITAMIN D3) 50 MCG (1999) Tablet Take 2,000 Units by mouth. Every [...] as of this encounter (statuses as of 10/25/2020) Active Problems Problem Noted Date Thyroid nodule [...] as of this encounter (statuses as of 10/25/2020) Resolved Problems Problem Noted Date Resolved Date History of rheumatoid arthritis 09/04/2017 08/20/2018 History of rheumatoid arthritis 01/06/2016 07/27/2016 Kidney disease, chronic, stage III (GFR 30-59 ml /min) 08/09/2014 07/30/2017 Overview: Per CKD protocol #1 HTN, goal below 140/90 8 Kidney disease, chronic, stage III (GFR 30-59 ml /min) 03/24/2012 documented as of this encounter (statuses as of 10/25/2020) Immunizations Name Administration Dates Next Due COVID-19 [...] encounter Miscellaneous Notes * Telephone Encounter - GénesisRayna, SAFETY REPRESENTATIVE - 10/25/2020 12:25 PM EDT Spoke with patient. He verbalized understanding. He still is not interested in a statin. He is agreeable to hematology referral. BMP printed and mailed. * Telephone Encounter - GénesisRaynaWAYNE - 10/25/2020 12:21 PM EDT ----- Message from William Joseph MD sent at 10/24/2020 12:00 PM EDT ----- 1. LDL cholesterol still high, but he has declined statin in past, cont diet/exercise 2. Thyroid fine, no anemia, vit b12 fine, sugar fine 3. gfr a little worse then last time, but overall stable past 5 years. Please stay hydrated, recheck bmp 1 month NON fasting to follow. pls mail order 4. lft stable 5. His SPEP and immunofixation shows possible abnormality with his IGG. This could be his normal, but I would suggest heme evaul to make sure no other work up needed. Is he willing to go? If so I will place referral. documented in this encounter Plan of Treatment Upcoming Encounters Date Type Specialty Care Team Description 10/31/2020 Office Visit Internal Medicine Juan Carlos Barry PA-C [facility] [place] [address] [phone] 01/04/2021 Office Visit Nephrology Lisbeth Ward MD [address] [place] [address] [address] [phone] 02/13/2021 Office Visit Rheumatology Carlos Alberto Matthews MD [address] [facility] [address] [phone] Scheduled Referrals Name Type Priority Associated Diagnoses Orde r Schedule HEMATOLOGY/ONCOLOGY REFERRAL OP Referral Within 30 days (routine) Abnormal SPEP Ordered: 10/25/2020 Health Maintenance Due Date Last Done Comments Zoster Vaccines (2 of 3) 03/07/2015 01/10/2015 FOBT ANNUALLY,AGES 18-90 03/22/2017 03/22/2016, 09/26 CKD PHOS USE SMARTSET 69666 03/15/202102/25, 10/22/2018, 05/04/2016 CKD GFR USE SMARTSET 62073 04/16/202110/14, 03/15/2020, 11/18/2019, Additional history exists CKD HGB USE SMARTSET 99884 10/14/202110/14, 11/18/2019, 10/22/2018, Additional history exists DIABETES [...] as of this encounter Visit Diagnoses Diagnosis Abnormal SPEP- Primary Other nonspecific findings on examination of blood documented in this encounter Advance Directives Documents on File Type Date Recorded Patient Earrings Fabricator Expl anation Advanced Directive Advanced Directive Advanced Directive Advanced Directive Advanced Directive Advanced Directive Advanced Directive Advanced Directive Advanced Directive Advanced Directive Advanced Directive Advanced Directive Advanced Directive Advanced Directive Advanced Directive Advanced Directive Advanced Directive Advanced Directive Advanced Directive Advanced Directive Advanced Directive Advanced Directive Advanced Directive Advanced Directive
--- OUTSIDE RECORDS SUMMARY | 2023-01-29 05:07 | External Medical Summary | Summary of Care ---
Author Name Unknown Organization [place] [address] Care Team Providers Care Hog Man Name Role Phone William Joseph MD Primary Care Provider + Reason for Visit * Reason Comments eRx-Medication Refill Encounter Details Date Type Department Care Team Description 08/01/2020 Refill General Internal Medicine [facility] [address] [facility] [place] [id number] William Joseph MD [address] [facility] [place] [address] [phone] Pernicious anemia Allergies No Known Active Allergiesdocumented as of this encounter (statuses as of 08/02/2020) Medications Medication Sig Dispensed Refills Start Date [...] PRN, RA Flare up, Reported on 02/18/2020 amLODIPine Besy-Benazepril HCl 2.5-10 MG Oral Capsule (LOTREL)Indications:B enign hypertension with CKD (chronic kidney disease) stage III Take 1 Cap by mouth daily. 30 Cap 5 03/21/2020 Active Flovent HFA 44 MCG/ACT Inhalation Aerosol (fluticasone)Indicati ons:Bronchiectasis (HCC) INHALE ONE PUFF BY MOUTH TWICE DAILY 10.6 g 5 06/22/2020 Active Cyanocobalamin 1000 MCG/ML Injection Solution (Cyanocobalamin)Indic ations:Pernicious anemia inject 1ml into a large muscle every month 1 mL 4 08/01/2020 Active documented as of this encounter (statuses as of 08/02/2020) Active Problems Problem Noted Date Thyroid nodule [...] as of this encounter (statuses as of 08/02/2020) Resolved Problems Problem Noted Date Resolved Date History of rheumatoid arthritis 09/04/2017 08/20/2018 History of rheumatoid arthritis 01/06/2016 07/27/2016 Kidney disease, chronic, stage III (GFR 30-59 ml /min) 08/09/2014 07/30/2017 Overview: Per CKD protocol #1 HTN, goal below 140/90 8 Kidney disease, chronic, stage III (GFR 30-59 ml /min) 03/24/2012 documented as of this encounter (statuses as of 08/02/2020) Immunizations Name Administration Dates Next Due Pneumococcal Conjugate Vacc, 13 Valent (Prevnar) 07/13/2015 [...] encounter Miscellaneous Notes * Telephone Encounter - Remigio Liriano RPh - 08/02/2020 11:51 AM EST Refused Prescriptions: Disp Refills Cyanocobalamin 1000 MCG/ML Injection Solut*1 mL 0 Sig: Inject 1ML into a large muscle every monthRefused By: REMIGIO LIRIANOReason for Refusal: Duplicate RequestReason for Refusal Comment: Just approved within last week documented in this encounter Plan of Treatment Upcoming Encounters Date Type Specialty Care Team Description 08/11/2020 Office Visit Rheumatology Carlos Alberto Matthews MD [address] [place] [address], [place] [address] [phone] 09/09/2020 [facility] [address] [facility] [place] [address] [phone] Health Maintenance Due Date Last Done Comments Zoster Vaccines (2 of 3) 03/07/2015 01/10/2015 FOBT ANNUALLY,AGES 18-90 03/22/2017 03/22/2016, 09/26 CKD GFR USE SMARTSET 63265 09/13/202003/15, 11/18/2019, 11/11/2018, Additional history exists CKD HGB USE SMARTSET 32945 11/17/202011/17, 10/22/2018, 07/06/2016, Additional history exists CKD PHOS USE SMARTSET 77838 03/15/202102/25, 10/22/2018, 05/04/2016 DIABETES SCREEN EVERY 3 YRS-AGE 45 AND ABOVE 03/15/2023 03/15/2020, 11/18/2019, 11/11/2018, Additional history exists DTaP,Tdap,and Td Vaccines (2 - Td) 01/10/2025 01/10/2015 Pneumococcal Vaccine: 65+ Years Completed 07/13/2015, 06/08/2013 Influenza Vaccine (FLU shot) Completed , 03/24/2019, 05/22/2018, Additional history exists MENINGOCOCCAL (MENACTRA/MENVEO) Aged Out No longer eligible based on patient's age to complete this topic documented as of this encounter Implants Not on filedocumented as of this encounter Visit Diagnoses Diagnosis Pernicious anemia documented in this encounter Advance Directives Documents on File Type Date Recorded Patient River Rafting Guide Expl anation Advanced Directive Advanced Directive Advanced Directive Advanced Directive Advanced Directive Advanced Directive Advanced Directive Advanced Directive Advanced Directive Advanced Directive Advanced Directive Advanced Directive Advanced Directive Advanced Directive Advanced Directive Advanced Directive Advanced Directive Advanced Directive
--- OUTSIDE RECORDS SUMMARY | 2023-01-29 05:07 | External Medical Summary | Summary of Care ---
Author Name Unknown Organization [place] [address] Care Team Providers Care City Jailer Name Role Phone William Joseph MD Primary Care Provider + Reason for Referral * Evaluate & Treat - Unlimited Visits (Within 30 days (routine)) Status Reason Specialty Diagnoses / Procedures Referred By Contact Referred To Contact Pending Review Specialty Services Required Nephrology Diagnoses Benign hypertension with CKD (chronic kidney disease) stage III William Joseph MD [address] [facility] [address] [place] [address] Question Answer Referral Priority Within 30 days (routine) What condition is this patient being seen for? Chronic kidney disease Comments F/u CKD III Electronically signed by iWlliam Joseph MD at Reason for Visit * Reason Onset Date Comments Re-Check Immunizations 09/09/2020 Shingrix Encounter Details Date Type Department Care Team Description 09/09/2020 Office Visit General Internal Medicine [facility] Driver [address] [id number] William Joseph MD [address] [facility] [place] [id number] Benign hypertension with CKD (chronic kidney disease) stage III*; Bronchiectasis without complication (HCC); Rheumatoid arthritis involving multiple sites with positive rheumatoid factor (HCC); Mixed hyperlipidemia; Thyroid nodule; Pernicious anemia; Need for vaccination for zoster; Screen for colon cancer; Thoracic aortic aneurysm without rupture (HCC); Abnormal LFTs Allergies No Known Active Allergiesdocumented as of this encounter (statuses as of 09/09/2020) Medications Medication Sig Dispensed Refills Start Date [...] (chronic kidney disease) stage III Take 1 Tab by mouth daily. 30 Tab 5 09/09/2020 Active documented as of this encounter (statuses as of 09/09/2020) Active Problems Problem Noted Date Thyroid nodule [...] as of this encounter (statuses as of 09/09/2020) Resolved Problems Problem Noted Date Resolved Date History of rheumatoid arthritis 09/04/2017 08/20/2018 History of rheumatoid arthritis 01/06/2016 07/27/2016 Kidney disease, chronic, stage III (GFR 30-59 ml /min) 08/09/2014 07/30/2017 Overview: Per CKD protocol #1 HTN, goal below 140/90 8 Kidney disease, chronic, stage III (GFR 30-59 ml /min) 03/24/2012 documented as of this encounter (statuses as of 09/09/2020) Immunizations Name Administration Dates Next Due COVID-19 mRNA, LNP-s, No Pre serve, 2-Dose Series (vivit) 08/03/2020,07/13/2020 Pneumococcal Conjugate Vacc, 13 Valent (Prevnar) [...] Sign Reading Time Taken Comments Blood Pressure 152/98 09/09/2020 9:42 AM EDT Pulse 76 09/09/2020 9:42 AM EDT Temperature 36 C (96.8 F) 09/09/2020 9:42 AM EDT Respiratory Rate 16 09/09/2020 9:42 AM EDT Oxygen Saturation - - Inhaled Oxygen Concentration - - Weight 76.7 kg (169 lb) 09/09/2020 9:42 AM EDT Height - - Body Mass Index 26.97 02/18/2020 9:58 AM EDT documented in this encounter Progress Notes * William Joseph MD - 09/09/2020 10:14 AM EDT Chief Complaint Patient presents with Re-Check Immunizations Shingrix SUBJECTIVE: Ignacio Garcia is a 75 year old male with PMH as below who presents for f/u HTN, CKD III, lipids, thyroid nodule, RA. Feels good. No cp, sob, lloyd. No joint edema or joint pain, not taking RA meds, feels well. Mood is good. BP has been ok at home, some 150's readings. Taking med, Has been more sedentary due to pandemic. Did get COVID vaccine Patient Active Problem List Diagnosis Code Encounter [...] hyperlipidemia E78.2 Thyroid nodule E04.1 Secondary hyperparathyroidism (HCC) N25.81 Current Outpatient Medications Medication Sig Dispense Refill Benazepril HCl 10 MG Oral Tablet (Lotensin) Take 1 Tab by mouth daily. 30 Tab 5 Cyanocobalamin 1000 MCG/ML Injection Solution (Cyanocobalamin) inject 1ml into a large muscle every month 1 mL 4 Flovent HFA 44 MCG/ACT Inhalation Aerosol (fluticasone) INHALE ONE PUFF BY MOUTH TWICE DAILY 10.6 g 5 amLODIPine Besy-Benazepril HCl 2.5-10 MG Oral Capsule (LOTREL) Take 1 Cap by mouth daily. 30 Cap 5 Cholecalciferol (VITAMIN D3) 50 MCG (2000 [...] Allergies Health Maintenance Due Topic Date Due Zoster Vaccines (2 of 3) 03/07/2015 FOBT ANNUALLY,AGES 18-90 03/22/2017 CKD GFR USE SMARTSET 25784 09/13/2020 ROS: CONSTITUTIONAL: No change in weight, No weakness and No fevers, sweats, or chills EYE: No recent significant change in vision, No eye pain, redness, discharge and No diplopia EARS: No ear pain, No drainage, No tinnitus or vertigo and No recent change in hearing NOSE: No history of frequent colds or sinusitis, No nasal stuffiness, No history of Hay Fever and No significant epistaxis PULMONARY: No hemoptysis, No wheezing, No rales, No shortness of breath and No recent change in breathing, chronic cough stable CARDIOVASCULAR: No chest pain, No shortness of [...] bloating or early satiety and No dysphagia EXTREMITIES: No pain, redness or swelling on the joints SKIN/INTEGUMENTARY: No edema, No rash and No itching NEUROLOGIC: Normal balance, No headaches, No seizures and No weakness All OTHER SYSTEMS NEGATIVE I reviewed social, PMH, PSH, and family history and updated where needed. 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 Employer: [employer] Social Needs Financial resource strain: Not on file Food insecurity Worry: Never true Inability: Never true Transportation needs Medical: Not on file Non-medical: Not on file Tobacco Use Smoking status: Former Smoker Packs/day: 2.00 Years: 35.00 Pack years: 70.00 Types: Cigarettes Quit date: 06/25/1990 Years since quittin.2 Smokeless tobacco: Never Used Substance and Sexual [...] file Gets together: Not on file Attends anabaptist service: Not on file Active member of [...] file Vaping/E-Cigarette Use Vaping/E-Cigarette Substances Vaping/E-Cigarette Devices Past Medical History: Diagnosis Date Bronchiectasis (HCC) [...] Mother Hypertension Mother OBJECTIVE: PHYSICAL EXAM: BP 152/98 (BP Site: Left Arm, BP Position: Sitting, BP Cuff Size: Regular) | Pulse 76 | Temp 36 C(96.8 F) (Tympanic) | Resp 16 | Wt 76.7 kg (169 lb) | BMI 26.97 kg/m | BSA 1.9 m General: alert, healthy and no distress Head: Normocephalic, No masses, lesions, tenderness or abnormalities Eye Exam: Conjunctiva are pink [...] edema, no clubbing, no cyanosis Neuro Exam: gait normal, to table w/o aid Psych: normal affect, no flight of ideas or tangential thought, good eye contact, no pressured speech I reviewed last gfr, lipid, vit b12 08/11/20 rheum: 1. Continue off DMARD therapy at this point 2. Prednisone as needed 3. Return to clinic in 6 months I reviewed home bp log 02/25/20 u/s: Findings compatible with multinodular goiter. Dominant large right thyroid nodule, visually similarto prior. ASSESSMENT: I12.9,N18.30 Benign hypertension with CKD (chronic kidney disease) stage III (primary encounter diagnosis) J47.9 Bronchiectasis without complication (HCC) M05.79 Rheumatoid arthritis involving multiple sites with positive rheumatoid factor (HCC) E78.2 Mixed hyperlipidemia E04.1 Thyroid nodule D51.0 Pernicious anemia Z23 Need for vaccination for zoster Z12.11 Screen for colon cancer I71.2 Thoracic aortic aneurysm without rupture (HCC) R94.5 Abnormal LFTs PLAN: Benign hypertension with CKD (chronic kidney disease) stage III (Primary) - NEPHROLOGY REFERRAL OP - CBC WITH WBC DIFFERENTIAL - Benazepril HCl 10 MG Oral Tablet (Lotensin); Take 1 Tab by mouth daily. Not at goal. We discussed med management - increasing norvasc back to 5 mg, keeping benazepril at 10 or increasing benazepril to 20 mg, pro/con each discussed, elects latter as doesn't want edema in legs (this has resolved). Will send separate benazepril 10 mg to total 20 mg. He is aware of labs in2-3 weeks - orders given Check here 6 weeks, he will bring cuff Home readings to me 1-2 weeks Recheck with nephrology Bronchiectasis without complication (HCC) Cont flovent Discussed re-imaging/further evaul, he declines Rheumatoid arthritis involving multiple sites with positive rheumatoid factor (HCC) Controlled Mixed hyperlipidemia - LIPID PANEL WITH DIRECT LDL IF TG IS HIGH - COMPREHENSIVE METABOLIC PANEL Recheck labs Thyroid nodule - TSH Cont f/u u/s yearly Pernicious anemia - VITAMIN B12 Cont supplement Need for vaccination for zoster - ZOSTER VACCINE RECOMB, 2 DOSE, IM (SHINGRIX); Standing He will schedule this at [facility] per his request Screen for colon cancer - FECAL OCCULT BLOOD, EIA; Future; Expected date: 09/09/2020 Declines c-scope Thoracic aortic aneurysm without rupture (HCC) Again discussed recheck CT/make sure not enlarging, he declines Abnormal LFTs - SERUM PROTEIN ELECTROPHORESIS REFLEX PROFILE - URINE IMMUNOFIXATION, BENCE PEREZ PROTEIN, RANDOM URINE Follow Up: Return in about 6 weeks (around 10/21/2020), or if symptoms worsen or fail to improve, for Return with AP. | For: Return with AP William Joseph MD * Kelvin Simon RN - 09/09/2020 9:48 AM EDT Does the patient have active shingles? No If, yes, patient must wait to receive vaccine till after rash is gone. Does the patient have an illness today with a fever more than 101?F? No Has the patient ever had a serious allergic reaction after receiving a vaccination? No Has the patient had a blood test showing they are not immune to Chicken Pox (rare)? No If yes, should get Chicken pox vaccine instead of shingrix. Shingrix Vaccine Information Sheet has been provided. Kelvin Simon RN 09/09/2020 9:48 AM documented in this encounter Nursing Notes * Kelvin Simon RN - 09/09/2020 9:41 AM EDT Chief Complaint Patient presents with Re-Check documented in this encounter Plan of Treatment Upcoming Encounters Date Type Specialty Care Team Description 10/21/2020 Office Visit Internal Medicine Juan Carlos Barry PA-C [address] [place] [address] [phone] 01/04/2021 Office Visit Nephrology Lisbeth Ward MD [address] [place] [address] [phone] 02/13/2021 Office Visit Rheumatology Carlos Alberto Matthews MD [address] [place] [address] [phone] Scheduled Orders Name Type Priority Associated Diagnoses Orde r Schedule FECAL OCCULT BLOOD, EIA Lab Routine Screen for colon cancer Expected: 09/09/2020 (Approximate), Expires: 09/09/2021 LIPID PANEL WITH DIRECT LDL IF TG IS HIGH Lab Routine Mixed hyperlipidemia Ordered: 09/09/2020 COMPREHENSIVE METABOLIC PANEL Lab Routine Mixed hyperlipidemia Ordered: 09/09/2020 VITAMIN B12 Lab Routine Pernicious anemia Ordered: 09/09/2020 TSH Lab Routine Thyroid nodule Ordered: 09/09/2020 CBC WITH WBC DIFFERENTIAL Lab Routine Benign hypertension with CKD (chronic kidney disease) stage III Ordered: 09/09/2020 SERUM PROTEIN ELECTROPHORESIS REFLEX PROFILE Lab Routine Abnormal LFTs Ordered: 09/09/2020 URINE IMMUNOFIXATION, BENCE PEREZ PROTEIN, RANDOM URINE Lab Routine Abnormal LFTs Ordered: 09/09/2020 Scheduled Referrals Name Type Priority Associated Diagnoses Orde r Schedule NEPHROLOGY REFERRAL OP Referral Within 30 days (routine) Benign hypertension with CKD (chronic kidney disease) stage III Ordered: 09/09/2020 Health Maintenance Due Date Last Done Comments Zoster Vaccines (2 of 3) 03/07/2015 01/10/2015 FOBT ANNUALLY,AGES 18-90 03/22/2017 03/22/2016, 09/26 CKD GFR USE SMARTSET 73144 09/13/202003/15, 11/18/2019, 11/11/2018, Additional history exists CKD HGB USE SMARTSET 44761 11/17/202011/17, 10/22/2018, 07/06/2016, Additional history exists CKD PHOS USE SMARTSET 25470 03/15/202102/25, 10/22/2018, 05/04/2016 DIABETES SCREEN EVERY 3 [...] hypertension with CKD (chronic kidney disease) stage III- Primary Benign hypertensive kidney disease with chronic kidney disease stage I through stage IV, or unspecified Bronchiectasis without complication (HCC) Bronchiectasis without acute exacerbation Rheumatoid arthritis involving multiple sites with positive rheumatoid factor (HCC) Mixed hyperlipidemia Thyroid nodule Nontoxic uninodular goiter Pernicious anemia Need for vaccination for zoster Need for prophylactic vaccination and inoculation against other viral diseases Screen for colon cancer Special screening for malignant neoplasms, colon Thoracic aortic aneurysm without rupture (HCC) Thoracic aneurysm without mention of rupture Abnormal LFTs Other abnormal blood chemistry documented in this encounter Advance Directives Documents on File Type Date Recorded Patient Multi Skilled Operator Expl anation Advanced Directive Advanced Directive Advanced Directive Advanced Directive Advanced Directive Advanced Directive Advanced Directive Advanced Directive Advanced Directive Advanced Directive Advanced Directive Advanced Directive Advanced Directive Advanced Directive Advanced Directive Advanced Directive Advanced Directive Advanced Directive Advanced Directive Advanced Directive Advanced Directive Advanced Directive"
--- OUTSIDE RECORDS SUMMARY | 2023-01-29 05:07 | External Medical Summary | Summary of Care ---
Author Name Unknown Organization [place] [address] Care Team Providers Care Telecommunications Repairer Name Role Phone William Joseph MD Primary Care Provider + Reason for Visit * Reason Comments Rheum Follow Up recheck Encounter Details Date Type Department Care Team Description 08/11/2020 Office Visit Rheumatology [facility] [email or web address] [place] [address] Harry [place] MD [address] [email or web address] [address] [phone] Rheumatoid arthritis involving multiple sites with positive rheumatoid factor (HCC)*; Bronchiectasis without complication (HCC) Allergies No Known Active Allergiesdocumented as of this encounter (statuses as of 08/11/2020) Medications Medication Sig Dispensed Refills Start Date [...] as of this encounter (statuses as of 08/11/2020) Active Problems Problem Noted Date Thyroid nodule [...] as of this encounter (statuses as of 08/11/2020) Resolved Problems Problem Noted Date Resolved Date History of rheumatoid arthritis 09/04/2017 08/20/2018 History of rheumatoid arthritis 01/06/2016 07/27/2016 Kidney disease, chronic, stage III (GFR 30-59 ml /min) 08/09/2014 07/30/2017 Overview: Per CKD protocol #1 HTN, goal below 140/90 8 Kidney disease, chronic, stage III (GFR 30-59 ml /min) 03/24/2012 documented as of this encounter (statuses as of 08/11/2020) Immunizations Name Administration Dates Next Due COVID-19 mRNA, LNP-s, No Pre serve, 2-Dose Series (Grid20/20) 08/03/2020,07/13/2020 Pneumococcal Conjugate Vacc, 13 Valent (Prevnar) [...] Sign Reading Time Taken Comments Blood Pressure 154/80 08/11/2020 1:01 PM EDT Pulse - - Temperature 36.1 C (97 F) 08/11/2020 1:01 PM EDT Respiratory Rate - - Oxygen Saturation - - Inhaled Oxygen Concentration - - Weight 75.3 kg (166 lb) 08/11/2020 1:01 PM EDT Height - - Body Mass Index 26.49 02/18/2020 9:58 AM EDT documented in this encounter Progress Notes * Harry [place] MD - 08/11/2020 1:27 PM EDT Progress Notes Today's Visit Note 08/11/2020 Harry [place] MD Assessment Diagnosis Comment Rheumatoid arthritis involving multiple sites with positive rheumatoid factor (HCC) Bronchiectasis (HCC) Comment His rheumatoid disease appears to be doing well off all therapy. Uses steroids as needed. Got his COVID vaccines. Plan 1. Continue off DMARD therapy at this point 2. Prednisone as needed 3. Return to clinic in 6 months History "Mr. Garcia is a 75 year old man last seen in Rheumatology today (08-11-20). He has h/o Rheumatoid arthritis involving multiple sites with positive rheumatoid factor (HCC), Mixed hyperlipidemia, Benign hypertension with CKD (chronic kidney disease) stage III, Bronchiectasis (HCC), Secondary hyperparathyroidism (HCC), Thyroid nodule, Pernicious anemia, and Bunion, left foot." Temporary History he has remained off all treatment. uses prednisone as needed but has not used it for months now. herpeorts that his bronchiectasis is a little worse - more cough. always has some ANDERSEN. as for his RA - he rates his pain around 2/3. Not much a.m. stiffness at all. He reports he still has Xeljanz at home but has not used it in a long time. He does not feel like he needs it. Permanent History diagnosed with RA in 2001 but now burnt out, off DMARD therapy Condition Summary Date Description 03/21/2020 GEN INT MED [facility] POD3 x 2 (02/18/20, 03/21/20). Most recent with SHAILA Barry (Benign hypertension with CKD (chronic kidney disease) stage III) Review of Systems (ROS) ROS Symptoms General none HEENT none MS/Neuro joint pain/swelling Skin none Cardiopulmonary ANDERSEN/COugh Gastrointestinal none Genitourinary none Medications Rheumatology Meds Other Meds PREDNISONE 5 MG Take 1 Tab by mouth daily. AMLODIPINE BESY-BENAZEPRIL HCL 2.5-10 MG PO CAPS Take 1 Cap by mouth daily. BENZONATATE 100 MG PO CAPS Take 1 Cap by mouth 2 times a day as needed for Cough. Do not cut, crush, or chew. CYANOCOBALAMIN 1000 MCG/ML IJ SOLN inject 1ml into a large muscle every month FLOVENT HFA 44 MCG/ACT IN AERO INHALE ONE PUFF BY MOUTH TWICE DAILY VITAMIN D3 50 MCG (2000 UT) PO TABS Take 2,000 Units by mouth. 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 Crepitus on exam of both shoulders Neck supple, no masses, JVD, or thyromegaly Lymph Nodes no lymphadenopathy Heart regular rate and rhythm, no murmurs or rubs Lungs Coarse breath sounds heard with some expiratory rhonchi and wheezing Abdomen soft, normal bowel sounds, no masses or organomegaly Monitoring Labs Measure Today Previous HGB g/dl 15.5 11/20/2019 eGFR mL/min/1.73 M2 61 03/17/2020 ALT U/L 11 03/17/2020 Outcome Measures Measure Today Previous MDHAQ Pain Fatigue Stiffness Patient Global 2 08/11/2020 3 02/03/2020 Rapid3 Tender Score 0 08/11/2020 0 02/03/2020 Swollen Score 0 08/11/2020 0 02/03/2020 Physician Global Score 2 08/11/2020 2 02/03/2020 Patient Global Score 2 08/11/2020 3 02/03/2020 CDAI 4 08/11/2020 5 02/03/2020 Care Gaps As Of 08/10/2020 Physician open RA on DMARD RA, Not [...] Vaccine Completed open Zoster Vaccine (Shingrix) Needs First Shingrix Vaccine Treat To Target - Provider Goal Measure Current Target CDAI 4 10 Opportunity No changes required The patient does not have enough data on file or a decision was made at a prior visit. Signature HARRY BROOKS documented in this encounter Nursing Notes * Fani Hickman LPN - 08/11/2020 1:01 PM EDT Chief Complaint Patient presents with Rheum Follow Up recheck documented in this encounter Plan of Treatment Upcoming Encounters Date Type Specialty Care Team Description 09/09/2020 Office Visit Internal Medicine William Joseph MD [address] [place], [place] [id number] 02/13/2021 Office Visit Rheumatology Harry [place] MD [address] [facility] [place] [address] Health Maintenance Due Date Last Done Comments Zoster Vaccines (2 of 3) 03/07/2015 01/10/2015 FOBT ANNUALLY,AGES 18-90 03/22/2017 03/22/2016, 09/26 CKD GFR USE SMARTSET 97552 09/13/202003/15, 11/18/2019, 11/11/2018, Additional history exists CKD HGB USE SMARTSET 43929 11/17/202011/17, 10/22/2018, 07/06/2016, Additional history exists CKD PHOS USE SMARTSET 60632 03/15/202102/25, 10/22/2018, 05/04/2016 DIABETES SCREEN EVERY 3 [...] Documents on File Type Date Recorded Patient Deportation Officer Expl anation Advanced Directive Advanced Directive Advanced Directive Advanced Directive Advanced Directive Advanced Directive Advanced Directive Advanced Directive Advanced Directive Advanced Directive Advanced Directive Advanced Directive Advanced Directive Advanced Directive Advanced Directive Advanced Directive Advanced Directive Advanced Directive Advanced Directive
--- OUTSIDE RECORDS SUMMARY | 2023-01-29 05:08 | External Medical Summary | Summary of Care ---
Author Name Unknown Organization [place] [address] Care Team Providers Care Student Activities Director Name Role Phone William Joseph MD Primary Care Provider + Reason for Visit * Reason Onset Date Comments Test Results 03/18/2020 Encounter Details Date Type Department Care Team Description 03/18/2020 Telephone General Internal Medicine [facility] [address] [place] [address] William Joseph MD [address] [place] [address] [phone] Test Results Allergies No Known Active Allergiesdocumented as of this encounter (statuses as of 03/18/2020) Medications Medication Sig Dispensed Refills Start Date End Date Status fluticasone (FLOVENT HFA) 44 MCG/ACT inhalerIndications:Br onchiectasis (HCC) Inhale 1 Puff by mouth 2 times a day. 10.6 g 4 06/19/2019 Active Cholecalciferol (VITAMIN D3) 50 MCG (1999 UT) Tablet Take 2,000 Units by mouth. Every 2 - 3 days 0 Active amlodipine-benazepril 5-20 mg per cap (LOTREL) 5-20 MG per capsuleIndications:Be nign hypertension with CKD (chronic kidney disease) stage III TAKE ONE CAPSULE BY MOUTH DAILY 90 Cap 1 09/07/2019 Active benzonatate (TESSALON PERLES) 100 MG CapsuleIndications:Co [...] PRN, RA Flare up, Reported on 02/18/2020 vitamin b-12 (CYANOCOBALAMIN) 1000 MCG/ML injectionIndications: Pernicious anemia inject 1ml into a large muscle every month 1 mL 4 01/29/2020 Active documented as of this encounter (statuses as of 03/18/2020) Active Problems Problem Noted Date Thyroid nodule [...] as of this encounter (statuses as of 03/18/2020) Resolved Problems Problem Noted Date Resolved Date History of rheumatoid arthritis 09/04/2017 08/20/2018 History of rheumatoid arthritis 01/06/2016 07/27/2016 Kidney disease, chronic, stage III (GFR 30-59 ml /min) 08/09/2014 07/30/2017 Overview: Per CKD protocol #1 HTN, goal below 140/90 8 Kidney disease, chronic, stage III (GFR 30-59 ml /min) 03/24/2012 documented as of this encounter (statuses as of 03/18/2020) Immunizations Name Administration Dates Next Due Pneumococcal [...] encounter Miscellaneous Notes * Telephone Encounter - Kelvin Simon RN - 03/18/2020 11:19 AM EDT Called patient and informed him of Dr. Joseph's result message. He verbalized understanding of all information and will comply. Patient requested Dr. Joseph's message to be sent to him via [employer] message. MyG message sent. Lab orders mailed to patient. * Telephone Encounter - Kelvin Simon RN - 03/18/2020 10:39 AM EDT ----- Message from William Joseph MD sent at 03/18/2020 9:03 AM EDT ----- Lipids high, but has declined statin in past so would continue with exercise, low fat diet gfr ok, electrolytes ok, phosphorus fine lft show slightly low albumin, could be his normal, but I want to check protein levels in blood urine further to make sure no other abnormality. Orders, please mail to patient as he uses [facility] documented in this encounter Plan of Treatment Upcoming Encounters Date Type Specialty Care Team Description 03/21/2020 Office Visit Internal Medicine Juan Carlos Barry PA-C [address] [place] [address] [phone] 05/25/2020 Office Visit Internal Medicine William Joseph MD [address] [place] [address] [phone] 08/03/2020 Office Visit Rheumatology Carlos Alberto Matthews MD [address] [place] [address] [phone] Health Maintenance Due Date Last Done Comments Zoster Vaccines (2 of 3) 03/07/2015 01/10/2015 FOBT ANNUALLY,AGES 18-90 03/22/2017 03/22/2016, 09/26 CKD GFR USE SMARTSET 24742 09/13/202003/15, 11/18/2019, 11/11/2018, Additional history exists CKD HGB USE SMARTSET 07343 11/17/202011/17, 10/22/2018, 07/06/2016, Additional history exists CKD PHOS USE SMARTSET 59446 03/15/202102/25, 10/22/2018, 05/04/2016 DIABETES SCREEN EVERY 3 [...] Documents on File Type Date Recorded 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
--- OUTSIDE RECORDS SUMMARY | 2023-01-29 05:08 | External Medical Summary | Summary of Care ---
Author Name Unknown Organization [place] [address] Care Team Providers Care Rock Drill Operator Name Role Phone William Chavez MD Primary Care Provider + Reason for Visit * Reason Onset Date Comments Medication Refill 08/01/2020 Encounter Details Date Type Department Care Team Description 08/01/2020 Refill General Internal Medicine [facility] [address] [facility] [place] [address] William Chavez MD [address] [place] [address] [phone] Pernicious anemia Allergies No Known Active Allergiesdocumented as of this encounter (statuses as of 08/01/2020) Medications Medication Sig Dispensed Refills Start Date [...] every month 1 mL 4 08/01/2020 Active vitamin b-12 (CYANOCOBALAMIN) 1000 MCG/ML injectionIndicatio ns:Pernicious anemia inject 1ml into a large muscle every month 1 mL 4 01/29/2020 08/01/2020 Discontinue d(Refill) documented as of this encounter (statuses as of 08/01/2020) Active Problems Problem Noted Date Thyroid nodule [...] as of this encounter (statuses as of 08/01/2020) Resolved Problems Problem Noted Date Resolved Date History of rheumatoid arthritis 09/04/2017 08/20/2018 History of rheumatoid arthritis 01/06/2016 07/27/2016 Kidney disease, chronic, stage III (GFR 30-59 ml /min) 08/09/2014 07/30/2017 Overview: Per CKD protocol #1 HTN, goal below 140/90 8 Kidney disease, chronic, stage III (GFR 30-59 ml /min) 03/24/2012 documented as of this encounter (statuses as of 08/01/2020) Immunizations Name Administration Dates Next Due Pneumococcal [...] Telephone Encounter - William Chavez MD - 08/01/2020 2:35 PM EST Signed Prescriptions: Disp Refills Cyanocobalamin 1000 MCG/ML Injection Solut*1 mL 4 Sig: inject 1ml into a large muscle every month Authorizing Provider: WILLIAM CHAVEZ * Telephone Encounter - Patricia Flor LPN - 08/01/2020 2:16 PM EST Pending Prescriptions: Disp Refills Cyanocobalamin 1000 MCG/ML Injection Solu*1 mL 4 Sig: inject 1ml into a large muscle every month Last Office/Telemedicine Visit: 03/21/2020 Next Office Visit: 09/09/2020 Scheduled Provider(s): William Chavez MD Last date the medication was ordered: 01/29/20 Patient Active Problem List Diagnosis Code Encounter [...] Thyroid nodule E04.1 Secondary hyperparathyroidism (HCC) N25.81 Labs: Lab Results Component Value Date/Time [...] for: HEMOGLOBIN A1C * Telephone Encounter - Patricia Flor LPN - 08/01/2020 2:13 PM EST Message from [employer] +: Refills have been requested for the following medications: vitamin b-12 (CYANOCOBALAMIN) 1000 MCG/ML injection [William Chavez MD] Preferred pharmacy: [id number] documented in this encounter Plan of Treatment Upcoming Encounters Date Type Specialty Care Team Description 08/11/2020 Office Visit Rheumatology Carlos Alberto Matthews MD [address] [place] [address] [phone] 09/09/2020 Office Visit Internal Medicine William Chavez MD [address] [facility] [place] [address] [phone] Health Maintenance Due Date Last Done Comments Zoster Vaccines (2 of 3) 03/07/2015 01/10/2015 FOBT ANNUALLY,AGES 18-90 03/22/2017 03/22/2016, 09/26 CKD GFR USE SMARTSET 72123 09/13/202003/15, 11/18/2019, 11/11/2018, Additional history exists CKD HGB USE SMARTSET 23593 11/17/202011/17, 10/22/2018, 07/06/2016, Additional history exists CKD PHOS USE SMARTSET 29216 03/15/202102/25, 10/22/2018, 05/04/2016 DIABETES SCREEN EVERY 3 [...] Documents on File Type Date Recorded 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
--- OUTSIDE RECORDS SUMMARY | 2023-01-29 05:08 | External Medical Summary | Summary of Care ---
Author Name Unknown Organization [place] [address] Care Team Providers Care Account Coordinator Name Role Phone William Gallardo MD Primary Care Provider + Reason for Visit * Reason Comments Re-Check 1 month return- lexie ent voices no concerns- has BP record with him Encounter Details Date Type Department Care Team Description 03/21/2020 Office Visit General Internal Medicine [facility] [address] [place] [address] Juan Carlos Barry PA-C [address] [place] [address] Benign hypertension with CKD (chronic kidney disease) stage III* Allergies No Known Active Allergiesdocumented as of this encounter (statuses as of 03/21/2020) Medications Medication Sig Dispensed Refills Start Date End Date Status fluticasone (FLOVENT HFA) 44 MCG/ACT inhalerIndications :Bronchiectasis (HCC) Inhale 1 Puff by mouth 2 times a day. 10.6 g 4 06/19/2019 Active Cholecalciferol (VITAMIN D3) 50 MCG (2000 UT) [...] on 02/18/2020 vitamin b-12 (CYANOCOBALAMIN) 1000 MCG/ML injectionIndicatio ns:Pernicious anemia inject 1ml into a large muscle every month 1 mL 4 01/29/2020 Active amLODIPine Besy-Benazepril HCl 2.5-10 MG Oral Capsule (LOTREL)Indication s:Benign hypertension with CKD (chronic kidney disease) stage III Take 1 Cap by mouth daily. 30 Cap 5 03/21/2020 Active amlodipine-benazep ril 5-20 mg per cap (LOTREL) 5-20 MG per capsuleIndications :Benign hypertension with CKD (chronic kidney disease) stage III TAKE ONE CAPSULE BY MOUTH DAILY 90 Cap 1 09/07/2019 0 Discontinued documented as of this encounter (statuses as of 03/21/2020) Active Problems Problem Noted Date Thyroid nodule [...] as of this encounter (statuses as of 03/21/2020) Resolved Problems Problem Noted Date Resolved Date History of rheumatoid arthritis 09/04/2017 08/20/2018 History of rheumatoid arthritis 01/06/2016 07/27/2016 Kidney disease, chronic, stage III (GFR 30-59 ml /min) 08/09/2014 07/30/2017 Overview: Per CKD protocol #1 HTN, goal below 140/90 8 Kidney disease, chronic, stage III (GFR 30-59 ml /min) 03/24/2012 documented as of this encounter (statuses as of 03/21/2020) Immunizations Name Administration Dates Next Due Pneumococcal [...] Sign Reading Time Taken Comments Blood Pressure 160/100 03/21/2020 2:15 PM EDT Pulse 80 03/21/2020 2:10 PM EDT Temperature 36.3 C (97.3 F) 03/21/2020 2:10 PM ED T Respiratory Rate 16 03/21/2020 2:10 PM EDT Oxygen Saturation 97% 03/21/2020 2:10 PM EDT Inhaled Oxygen Concentration - - Weight 75.4 kg (166 lb 3.2 oz) 03/21/2020 2:10 P M EDT Height - - Body Mass Index 26.52 02/18/2020 9:58 AM EDT documented in this encounter Progress Notes * Juan Carlos Barry PA-C - 03/21/2020 2:28 PM EDT Subjective: Ignacio Garcia is a 74 year old male. Chief Complaint Patient presents with Re-Check 1 month return- patient voices no concerns- has BP record with him HPI: 73 y/0 male presents for one month return for blood pressure check. Currently on Lotrel 5-20 mg pill. Was having issued will feeling lethargic recently when blood pressure would be down in 110s.He was trialed on benazapril 40 mg and stopped Norvasc, but blood pressure went up. Over the last couple months he has been watching his blood pressure and he has only had two high readings and it was while he was in the office. Otherwise controlled. He has lost about 20 pounds over the last couplemonths since COVID started as well. He is often still skipping day 3 of Lotrel due to lower numbers and getting symptomatic. Then will resume the next day. Denies chest pain, SOB, ANDERSEN, orthopnea. PMH: Patient Active Problem List Diagnosis Code Encounter for therapeutic drug monitoring Z51.81 Pernicious anemia D51.0 Bronchiectasis (HCC) J47.9 Thoracic aortic aneurysm ([facility]) I71.2 Benign hypertension with CKD (chronic kidney disease) stage III I12.9, N18.30 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 Bunion, left foot M21.612 Primary osteoarthritis of right hip M16.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 (HCC) M05.79 Mixed hyperlipidemia E78.2 Thyroid nodule E04.1 Secondary hyperparathyroidism ([facility]) N25.81 Current Outpatient Medications Medication Sig Dispense Refill vitamin b-12 (CYANOCOBALAMIN) 1000 MCG/ML injection inject 1ml into a large muscle every month 1 mL 4 benzonatate (TESSALON PERLES) 100 MG Capsule Take 1 Cap by mouth 2 times a day as needed for Cough. Do not cut, crush, or chew. 50 Cap 2 amlodipine-benazepril 5-20 mg per cap (LOTREL) 5-20 MG per capsule TAKE ONE CAPSULE BY MOUTH DAILY 90 Cap 1 Cholecalciferol (VITAMIN D3) 50 MCG (2000 UT) Tablet Take 2,000 Units by mouth. Every 2 - 3 days fluticasone (FLOVENT HFA) 44 MCG/ACT inhaler Inhale 1 Puff by mouth 2 times a day. 10.6 g 4 predniSONE (DELTASONE) 5 MG Tablet Take 1 Tab by mouth daily. (Patient taking differently: Take 10-15 mg by mouth daily as needed (RA Flare up).) 30 Tab 5 Review of patient's allergies indicates: No Known Allergies All other review of systems reviewed and negative other than mentioned in HPI. Objective: BP 160/100 | Pulse 80 | Temp 36.3 C (97.3 F) (Tympanic) | Resp 16 | Wt 75.4 kg (166 lb 3.2 oz) | SpO2 97% | BMI 26.52 kg/m | BSA 1.88 m Results for orders placed or performed in visit on 02/18/20 PHOSPHORUS Result Value Ref Range PHOSPHORUS-OUTSIDE LAB 3.4 2.1 - 4.3 MG/DL COMPR METAB PANEL Result Value Ref Range CREATININE-OUTSIDE LAB 1.15 0.70 - 1.18 MG/DL EGFR-OUTSIDE LAB 61 >=60 ML/MIN POTASSIUM-OUTSIDE LAB 4.5 3.5 - 5.3 MMOL/L GLUCOSE-OUTSIDE LAB 117 65 - 139 MG/DL ALT-OUTSIDE LAB 11 9 - 46 U/L LIPID PANEL WITH DIRECT LDL IF TRIGLYCERIDE IS ELEVATED Result Value Ref Range TRIGLYCERIDES-OUTSIDE LAB 84 <150 MG/DL CHOLESTEROL-OUTSIDE LAB 177 <200 MG/DL HDL-OUTSIDE LAB 52 >=40 MG/DL CHOL/HDL RATIO-OUTSIDE LAB 3.4 <5.0 LDL (CALCULATED)-OUTSIDE LAB 108 (H) <100 MG/DL Wt Readings from Last 10 Encounters: 03/21/20 75.4 kg (166 lb 3.2 oz) 02/18/20 75.8 kg (167 lb 3.2 oz) 02/03/20 74.8 kg (165 lb) 08/10/19 83.8 kg (184 lb 12.8 oz) 06/24/19 82.1 kg (181 lb) 03/24/19 80.6 kg (177 lb 9.6 oz) 02/26/19 78.9 kg (174 lb) 12/31/18 79.2 kg (174 lb 9.6 oz) 12/17/18 79.5 kg (175 lb 3.2 oz) 10/10/18 79.9 kg (176 lb 3.2 oz) Physical Exam: Physical Exam: Constitutional: No acute distress. Head: normocephalic, atraumatic Eyes: PERRL with intact EOM, no scleral icterus, injection, or nystagmus noted. Ears: TM pearly moreno bilaterally with light reflex noted without erythema or drainage bilaterally. No tenderness to helix tug. Throat: Pharynx pink without erythema, exudates, or other lesions Cardiovascular: RRR without rubs, murmurs, gallops. No peripheral edema. Pulmonary: Lungs clear to auscultation without rales, rhonchi, or wheezing on inspiration. Mild crackles in bases with expiration. Abdomen: Bowel sounds present x4, soft, nontender. No organomegaly, abdominal bruits, or masses. ASSESSMENT: Benign hypertension with CKD (chronic kidney disease) stage III (Primary) - amLODIPine Besy-Benazepril HCl 2.5-10 MG Oral Capsule (LOTREL); Take 1 Cap by mouth daily. Blood pressure log noted with controlled blood pressure with occasional lower numbers when he experiences symptoms. Given he is having adverse reaction to medication possibly, can trial lower combination therapy. Only two high readings were while he was in the office. Advised him to keep log at home and we will see what his blood pressure does. If elevates, then would recommend daily therapy at previous dose or trying just maximum therapy with Norvasc to see if it controls. He will send blood pressure log in one month and follow up as scheduled with Dr. Gallardo in two. Juan Carlos Barry PA-C documented in this encounter Nursing Notes * Shila Mayo LPN - 03/21/2020 2:07 PM EDT Chief Complaint Patient presents with Re-Check 1 month return- patient voices no concerns- has BP record with him documented in this encounter Plan of Treatment Upcoming Encounters Date Type Specialty Care Team Description 05/25/2020 Office Visit Internal Medicine William Gallardo MD [address] [facility] [place] [address] [phone] 08/03/2020 Office Visit Rheumatology Carlos Alberto Matthews MD [address] [place] [address] [phone] Health Maintenance Due Date Last Done Comments Zoster Vaccines (2 of 3) 03/07/2015 01/10/2015 FOBT ANNUALLY,AGES 18-90 03/22/2017 03/22/2016, 09/26 CKD GFR USE SMARTSET [id number] 09/13/202003/15, 11/18/2019, 11/11/2018, Additional history exists CKD HGB USE SMARTSET 43334 11/17/202011/17, 10/22/2018, 07/06/2016, Additional history exists CKD PHOS USE SMARTSET [id number] 03/15/202102/25, 10/22/2018, 05/04/2016 DIABETES SCREEN EVERY 3 [...] Documents on File Type Date Recorded 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
--- OUTSIDE RECORDS SUMMARY | 2023-01-29 05:08 | External Medical Summary | Summary of Care ---
Author Name Unknown Organization [place] [address] Care Team Providers Care Associate Scientist Name Role Phone William Chavez MD Primary Care Provider + Reason for Referral * (Routine) Status Reason Specialty Diagnoses / Procedures Referred By Contact Referred To Contact Pending Review Diagnoses Thyroid nodule Procedures US HEAD AND NECK William Chavez MD [address] [place] [address] * (Routine) Status Reason Specialty Diagnoses / Procedures Referred By Contact Referred To Contact Pending Review Diagnoses Thyroid nodule Procedures US HEAD AND NECK William Chavez MD [address] [place] [address] Reason for Visit * Reason Comments Re-Check Sinus Problem congestion, green dr jordan Cough ongoing Fall about 1 month ago - injured right hand; patient denies hitting head Encounter Details Date Type Department Care Team Description 02/18/2020 Office Visit General Internal Medicine [facility] [address] [place] [address] William Chavez MD [address] [place] [phone] Acute maxillary sinusitis, recurrence not specified*; 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 10.6 g 4 06/19/2019 Active Cholecalciferol (VITAMIN D3) 50 MCG (2000 UT) Tablet Take 2,000 Units by mouth. Every 2 - 3 days 0 Active amlodipine-benazepr il 5-20 mg per cap (LOTREL) 5-20 MG per capsuleIndications: Benign hypertension with CKD (chronic kidney disease) stage III TAKE ONE CAPSULE BY MOUTH DAILY 90 Cap 1 09/07/2019 Active benzonatate (TESSALON PERLES) 100 MG CapsuleIndications: Cough Take 1 Cap by mouth 2 times a day as needed for Cough. Do not cut, crush, or chew. 50 Cap 2 10/20/2019 Active predniSONE (DELTASONE) 5 MG TabletIndications:H /O rheumatoid arthritis Take 1 Tab by mouth daily. 30 Tab 5 10/20/2019 Active Additional Information Patient taking differently: 10-15 mg Oral DAILY PRN, RA Flare up, Reported on 02/18/2020 vitamin b-12 (CYANOCOBALAMIN) 1000 MCG/ML injectionIndication s:Pernicious anemia inject 1ml into a large muscle every month 1 mL 4 01/29/2020 Active Amoxicillin-Pot Clavulanate 875-125 MG Oral TabletIndications:A cute maxillary sinusitis, recurrence not specified Take 1 Tab by mouth every 12 hours for 7 days. 14 Tab 0 02/18/2020 02/25/2020 documented as of this encounter (statuses as [...] Sign Reading Time Taken Comments Blood Pressure 156/96 02/18/2020 10:00 AM EDT Pulse 88 02/18/2020 9:58 AM EDT Temperature 36.3 C (97.4 F) 02/18/2020 9:58 AM ED T Respiratory Rate 18 02/18/2020 9:58 AM EDT Oxygen Saturation - - Inhaled Oxygen Concentration - - Weight 75.8 kg (167 lb 3.2 oz) 02/18/2020 9:58 A M EDT Height 168.6 cm (5' 6.38") 02/18/2020 9:58 AM ED T Body Mass Index 26.68 02/18/2020 9:58 AM EDT documented in this encounter Patient Instructions * Patient Instructions* Kelvin Simon RN - 02/18/2020 9:55 AM EDT Patient Instructions - Fall Prevention (This education is for all patients over 65 regardless of symptoms) Remember to take your current medications as prescribed. In order to prevent falls, you are encouraged to: Exercise Utilize assistive/adaptive devices Avoid multifocal lenses when walking Avoid hazards in home Maintain a regular toileting schedule Any questions please contact our office. Preventing Falls in the Home (This education is for all patients over 65 regardless of symptoms) As you get older, falls are more likely. Thats because your reaction time slows. Your muscles and joints may also get stiffer, making them less flexible. Illness, medications, and vision changes can also affect your balance. A fall could leave you unable to live on your own. To make your home safer, follow these tips: Floors Put nonskid pads under area rugs Remove throw rugs Replace worn floor coverings Tack carpets firmly to each step on carpeted stairs. Put nonskid strips on the edges of uncarpeted stairs Keep floors and stairs free of clutter and cords Arrange furniture so there are clear pathways Clean up any spills right away Bathrooms Install grab bars in the tub or shower Apply nonskid strips or put a nonskid rubber mat in the tub or shower Sit on a bath chair to bathe Use bathmats with nonskid backing Lighting Keep a flashlight in each room Put a nightlight along the pathway between the bedroom and the bathroom [employer] Patient Education Copyright 2008 - 2010 Salma except where otherwise noted Preventing Falls: Exercises to Improve Balance, Flexibility, Strength, and Staying Power (This education is for all patients over 65 regardless of symptoms) Certain types of exercises may help make you less likely to fall. Try the ones below. Or do other exercises that your healthcare provider suggests. Depending on your health, you may need to start slowly. Dont let that stop you. Even small amounts of exercise can help you. Be sure to talk to yourhealthcare provider before starting any exercise program. Improve Balance Many types of exercise can help improve balance. Gera chi and yoga are good examples. Heres another one to try. You can do it anytime and almost anywhere. Stand next to a counter or solid support. Push yourself up onto your tiptoes. Hold for 5 seconds. If you start to lose your balance, hold on to the counter. Rest and repeat 5 times. Work up to holding for 20 to 30 seconds, if you can. Increase Flexibility Being more flexible makes it easier for you to move around safely. Try exercises like the seated hamstring stretch. Sit in a chair and put one foot on a stool. Straighten your leg and reach with both hands down either side of your leg. Reach as far down your leg as you can. Hold for about 20 seconds. Go back to the starting position. Then repeat 5 times. Switch legs. Build Strength Resistance exercises help build strength. You can do them without equipment. Or you can use weights, elastic bands, or special machines. One such exercise is called the biceps curl. You can hold a 1 pound weight or even a can of soup. Do this exercise at least 3 times a week. Strive for everyday. Sit up straight in a chair. Keep your elbow close to your body and your wrist straight. Bend your arm, moving your hand up to your shoulder. Then slowly lower your arm. Repeat 5 times. Switch to the other arm. Build Your Staying Power Aerobic exercises make your heart and lungs stronger so you can keep moving longer. Walking and swimming are two of the best types of exercises you can do. Using a stationary bike is great, too. Find an aerobic exercise that you enjoy. Start slowly and build up. Even 5 minutes is helpful. Aimfor a goal of 30 minutes, at least 3 times a week. You dont have to do 30 minutes in one session. Break it up and walk a little throughout the day. More Helpful Tips Start easy. Slowly work up to doing more. Talk with your healthcare provider about the best exercises for you. Call senior centers or health clubs about exercise programs. If needed, have a family member watch you walk every so often to check your stability. Exercise with a friend. Choose an activity you both enjoy. Try exercises that you can do anytime, anywhere. Here are two examples. Have someone with you when you first try these: Practice walking by placing one foot right in front of the other. Stand up and sit down 10 times. Repeat this throughout the day. [employer] Patient Education Copyright 2008 - 2010 [employer] except where otherwise noted. Preventing Falls: Moving Safely Using a Cane or Walker (This education is for all patients over 65 regardless of symptoms) Keep the cane away from your feet so you dont trip. A walking aid, such as a cane or walker, can help you stay more independent and avoid falls. Remember to keep your walking aid within easy reach when youre in a chair or in bed. And learn how to use it safely so you dont injure yourself. Using a Cane If you have a stronger side, hold the cane on that side. 17. Get your balance. 18. Move the cane and your weaker leg forward. 19. Support your weight on both the cane and your weaker side. 20. Step with your stronger leg. 21. Start again from step 1. If youre using a folding walker, be sure you know how to lock it open. Check that its locked open before each use. Using a Walker 7. Roll the walker (or lift it, if youre using one without wheels) forward about 12 inches. 8. Step forward with your weaker leg first. 9. Use the walker to help keep your balance. 10. Bring your other foot forward to the center of the walker. 11. Start again from step 1. Helpful Tips Check with your healthcare provider about the right walking aid to use. Ask about a walker with a seat attached. Check the tips of your cane or walker to make sure they have nonskid covers. Move slowly from room to room. Dont vela. Sit down to get dressed. Use a chapito pack or backpack to keep your hands free. Get help for jobs that mean climbing, even on a stepstool. [employer] Patient Education Copyright 2008 - 2010 [employer] except where otherwise noted. Treating Urinary Incontinence in Men (This education is for all patients over 65 regardless of symptoms) You can't always control the release of urine. You may leak urine. Or you may not be able to hold your urine until you can get to a bathroom. This is called urinary incontinence. The problem can be managed. Talk to your doctor about your treatment options. Taking Medications Prescription medications may help you. They may: Help the sphincter to work better. (This is the muscle that closes to keep urine from leaking out of the bladder.) Help stop the bladder from marjorie too often to push urine out. Help the bladder muscles contract with more force. Help relax the sphincter muscle and allow urine to flow more freely. Making Changes to Your Routine Certain changes in your daily routine may help. These include: Avoiding caffeine and alcohol. Using timed voiding. This is following a schedule for drinking fluids and urinating. Doing Kegel exercises daily. These exercises involve tightening the muscles in your sphincter and around your bladder to help strengthen them. Your doctor can explain how to do them. Using a Catheter A catheter is a narrow tube that is inserted through the urethra into the bladder. It drains urine.A condom catheter covers the penis. It channels urine into a collection bag. It is worn most of thetime. Intermittent catheterization means inserting a catheter to drain the bladder, then removing it. This is done on a regular schedule. Having Surgery If other options don't work, surgery may be recommended. If surgery is an option, your healthcare provider can discuss it with you and explain its risks and benefits. Healing After Prostate Surgery Surgery on the prostate gland can cause incontinence. Most often, the incontinence is only for a short time. It clears up when healing is complete. Very rarely, prostate surgery can result in permanent incontinence. documented in this encounter Progress Notes * William Chavez MD - 02/18/2020 10:42 AM EDT Chief Complaint Patient presents with Re-Check Sinus Problem congestion, green drainage Cough ongoing Fall about 1 month ago - injured right hand; patient denies hitting head SUBJECTIVE: Ignacio Garcia is a 74 year old male with PMH as below who presents for f/u htn, ckd III, RA. No cp,sob, lloyd. Chronic cough stable, unchanged,. Does c/o sinus congestion, pressure, drainage for perhaps 2-3 month, green discharge. No fevers, chills, no lost of taste or smell. Nasal saline helps minimally. His bp has been ok at home, but has skipped every 3rd day of med as was running 115 systolic,felt too low as was tired. Didn't take yesterday or today. Did fall a couple months ago when slipped coming in getting groceries. Hurt right hand, was swollen, this is also getting better, discussed with rheum, no further work up needed unless persistent. No N/V/D. Mood is ok, some stress with covid pandemic, but handling it ok. He follows with rheum for RA, hasn't been exercising as much. Weightis down on purpose for lipids with portion changes. 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 14 Tab 0 vitamin b-12 (CYANOCOBALAMIN) 1000 MCG/ML injection inject [...] 3) 03/07/2015 FOBT ANNUALLY,AGES 18-90 03/22/2017 CKD PHOS USE SMARTSET 84224 10/23/2019 *DEPRESSION SCREENING,ANNUAL FOR PTS 12 AND OVER 12/21/2019 Influenza Vaccine (FLU shot) (1) 12/26/2019 ROS: CONSTITUTIONAL: + change in weight, No weakness and No fevers, sweats, or chills EYE: No recent significant change in vision, No eye pain, redness, discharge and No diplopia EARS: No ear pain, No drainage, No tinnitus or vertigo and No recent change in hearing NOSE: No history of frequent colds or sinusitis and No significant epistaxis MOUTH: No bleeding gums or No thrush PULMONARY: No wheezing, No rales, No shortness [...] bloating or early satiety and No dysphagia All OTHER SYSTEMS NEGATIVE EXCEPT STATED IN HPI ABOVE, OVER 10 SYSTEMS REVIEWED I reviewed social, PMH, PSH, and family history and updated where needed. 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 Employer: [employer] Social Needs Financial resource strain: Not [...] file Gets together: Not on file Attends taoist service: Not on file Active member of [...] Mother Hypertension Mother OBJECTIVE: PHYSICAL EXAM: BP 156/96 | Pulse 88 | Temp 36.3 C (97.4 F) (Tympanic) | Resp 18 | Ht 1.686 m (5' 6.38") | Wt 75.8 kg (167 lb 3.2 oz) | BMI 26.68 kg/m | BSA 1.88 m General: alert, healthy and no distress Head: Normocephalic, No masses, lesions, tenderness or abnormalities Eye Exam: Conjunctiva are pink and non-injected, sclera clear Ears: External ears normal, Canals clear, TM's Normal Nose +erythema seen Heart: regular rate & rhythm, no murmurs, no gallops, PMI non-displaced, S-1 normal and S-2 normal Lungs: normal respiratory rate and rhythm, lungs clear to auscultation Extremities: no edema, no clubbing, no cyanosis, dorsal aspect right hand slightly swollen, no pain, again he feels improved Neuro Exam: gait normal, stands on own Psych: normal affect, no flight of ideas or tangential thought, good eye contact, no pressured speech 02/03/20 rheum: His rheumatoid arthritis overall is doing well. Will continue to monitor his right hand. If continues to be an issue asked him to contact me for aspiration and injection. Will send a message to his PCP about ongoing nasal congestion issues. Plan: 1. Discussed COVID 2. Continue off Xeljanz at this point 3. Prednisone as needed 4. Monitor right dorsal hand if continues to be an issue will aspirate and inject in the future 5. Will send a message to PCP 6. Return to clinic in 6 months I reviewed last gfr, lipid ASSESSMENT: J01.00 Acute maxillary sinusitis, recurrence not specified (primary encounter diagnosis) I12.9,N18.3 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) J47.9 Bronchiectasis without complication (HCC) M05.79 Rheumatoid arthritis involving multiple sites with positive rheumatoid factor (HCC) E04.1 Thyroid nodule E78.2 Mixed hyperlipidemia Z13.9 Risk and functional assessment W19.XXXA Fall, initial encounter PLAN: Acute maxillary sinusitis, recurrence not specified (Primary) - Amoxicillin-Pot Clavulanate 875-125 MG Oral Tablet; Take 1 Tab by mouth every 12 hours for 7 days. Follow symptoms 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) - PHOSPHORUS - COMPR METAB PANEL NOT at goal Discussed med compliance, will resume daily med Recheck 1 month Discussed seeing nephrology again, he will schedule Bronchiectasis without complication (HCC) Chronic cough Discussed re-image CT, again declines Rheumatoid arthritis involving multiple sites with positive rheumatoid factor (HCC) Cont care per rheum Thyroid nodule - US HEAD AND NECK Missed u/s Mixed hyperlipidemia - LIPID PANEL WITH DIRECT LDL IF TRIGLYCERIDE IS ELEVATED Declined statin in past Risk and functional assessment - PRES OR ABS OF URIN INCONT Fall, initial encounter Discussed, he feels improving, will observe for now Reminded to bring back fobt he will do Follow Up: Return in about 1 month (around 03/19/2020) for Clinic Visit. | For: Clinic Visit | Check-out note: Dr. Wilkinson 3 months William Chavez MD documented in this encounter Nursing Notes * Kelvin Simon, RN - 02/18/2020 9:56 AM EDT Chief Complaint Patient presents with Re-Check Sinus Problem congestion, green drainage Cough ongoing Fall about 1 month ago - injured right hand; patient denies hitting head documented in this encounter Miscellaneous Notes * Addendum Note - William Chavez MD - 03/18/2020 9:03 AM EDT Addended by: WILLIAM CHAVEZ on: 03/18/2020 09:03 AM Modules accepted: Orders * Result Aruna - William Chavez MD - 03/18/2020 9:03 AM EDT Lipids high, but has declined statin in past so would continue with exercise, low fat diet gfr ok, electrolytes ok, phosphorus fine lft show slightly low albumin, could be his normal, but I want to check protein levels in blood urine further to make sure no other abnormality. Orders, please mail to patient as he uses [facility] * Result Aruna - Shila Mayo LPN - 02/27/2020 3:39 PM EDT MyG sent * Addendum Note - William Chavez MD - 02/26/2020 5:02 PM EDT Addended by: WILLIAM CHAVEZ on: 02/26/2020 05:02 PM Modules accepted: Orders * Result QuickNote - William Chavez MD - 02/26/2020 5:02 PM EDT Nodule seems stable, recheck 1 year (u/s) documented in this encounter Plan of Treatment Upcoming Encounters Date Type Specialty Care Team Description 03/21/2020 Office Visit Internal Medicine Juan Carlos Barry PA-C [address] [facility], [place] [id number] 05/25/2020 Office Visit Internal Medicine William Chavez MD [address] [place] [address] 08/03/2020 Office Visit Rheumatology Carlos Alberto Matthews MD [address] [facility], [place] [id number] Scheduled Orders Name Type Priority Associated Diagnoses Orde r Schedule US HEAD AND NECK Medical Imaging Routine Thyroid nodule Expected: 02/25/2021, Expires: 03/28/2021 SERUM PROTEIN, EPG Lab Routine Abnormal LFTs Ordered: 03/18/2020 HEP FUNCTION PANEL Lab Routine Abnormal LFTs Ordered: 03/18/2020 BENCE-PEREZ PROTEIN, RANDOM URINE Lab Routine Abnormal LFTs Ordered: 03/18/2020 Health Maintenance Due Date Last Done Comments Zoster Vaccines (2 of 3) 03/07/2015 01/10/2015 FOBT ANNUALLY,AGES 18-90 03/22/2017 03/22/2016, 09/26 CKD GFR USE SMARTSET 46445 09/13/202003/15, 11/18/2019, 11/11/2018, Additional history exists CKD HGB USE SMARTSET 88035 11/17/202011/17, 10/22/2018, 07/06/2016, Additional history exists CKD PHOS USE SMARTSET 35776 03/15/202102/25, 10/22/2018, 05/04/2016 DIABETES SCREEN EVERY 3 [...] Procedure Name Priority Date/Time Associated Diagnosis Comments LIPID PANEL WITH DIRECT LDL IF TRIGLYCERIDE IS ELEVATED Routine 03/15/2020 Mixed hyperlipidemia COMPR METAB PANEL Routine 03/15/2020 Benign hypertension with CKD (chronic kidney disease) stage III PHOSPHORUS Routine 03/15/2020 Benign hypertension with CKD (chronic kidney disease) stage III US HEAD AND NECK Routine 02/25/2020 3:14 PM EDT Thyroid nodule documented in this encounter Results * LIPID PANEL WITH DIRECT LDL IF TRIGLYCERIDE IS ELEVATED (03/15/2020) TRIGLYCERIDES-OUTSIDE LAB 84 <150 MG/DL OUTSIDE LAB (SEE SCANNED REPORT) CHOLESTEROL-OUTSIDE LAB 177 <200 MG/DL OUTS ALVERTO LAB (SEE SCANNED REPORT) HDL-OUTSIDE LAB 52 >=40 MG/DL OUTSIDE LAB (SEE SCANNED REPORT) CHOL/HDL RATIO-OUTSIDE LAB 3.4 <5.0 OUTSIDE LAB (SEE SCANNED REPORT) LDL (CALCULATED)-OUTSIDE LAB 108(H) <100 MG/DL OUTSIDE LAB (SEE SCANNED REPORT) Specimen Narrative Performed At OUTSIDE LAB (SEE SCANNED REPORT) * COMPR METAB PANEL (03/15/2020) CREATININE-OUTSIDE LAB 1.15 0.70 - 1.18 MG/DL OUTSIDE LAB (SEE SCANNED REPORT) EGFR-OUTSIDE LAB 61 >=60 ML/MIN OUTSIDE LAB (SEE SCANNED REPORT) POTASSIUM-OUTSIDE LAB 4.5 3.5 - 5.3 MMOL/L OU TSIDE LAB (SEE SCANNED REPORT) GLUCOSE-OUTSIDE LAB 117 65 - 139 MG/DL OUTSID E LAB (SEE SCANNED REPORT) ALT-OUTSIDE LAB 11 9 - 46 U/L OUTSIDE LAB (SEE SCANNED REPORT) Specimen Narrative Performed At OUTSIDE LAB (SEE SCANNED REPORT) * PHOSPHORUS (03/15/2020) PHOSPHORUS-OUTSIDE LAB 3.4 2.1 - 4.3 MG/DL OUTSIDE LAB (SEE SCANNED REPORT) Specimen Narrative Performed At OUTSIDE LAB (SEE SCANNED REPORT) * US HEAD AND NECK (02/25/2020 3:14 PM EDT) Specimen Impressions Performed At IMPRESSION Findings compatible with multinodular goiter. Dominant large right thyroid nodule, visually similar to prior. [facility] Narrative Performed At EXAM 02/25/2020 3:14 pmUS HEAD AND NECK HISTORY f/u thyroid nodule TECHNIQUE Static and cine images were obtained. COMPARISON Multiple priors most recent September 06, 2018 FINDINGS The thyroid is enlarged. The right lobe measures 8.1 x 4.5 x 3.8 cm. The isthmus measures 3 mm. The left lobe measures 5.5 x 2.1 x 2.5 cm. No abnormal lymph nodes identified. There are multiple bilateral thyroid nodules. The largest is within the right mid to inferior pole. This nodule is complex in appearance demonstrates internal vascularity and measures 5.6 x 4.7 x 4.8 cm, previously 6.1 x 5.0 x 4.6 cm on exam from August 2018. [facility] Procedure Note Interface, Rad In - 02/25/2020 6:02 PM EDT EXAM 02/25/2020 3:14 pmUS HEAD AND NECK HISTORY f/u thyroid nodule TECHNIQUE Static and cine images were obtained. COMPARISON Multiple priors most recent September 06, 2018 FINDINGS The thyroid is enlarged. The right lobe measures 8.1 x 4.5 x 3.8 cm. Theisthmus measures 3 mm. The left lobe measures 5.5 x 2.1 x 2.5 cm. Noabnormal lymph nodes identified. There are multiple bilateral thyroid nodules. The largest is within theright mid to inferior pole. This nodule is complex in appearancedemonstrates internal vascularity and measures 5.6 x 4.7 x 4.8 cm,previously 6.1 x 5.0 x 4.6 cm on exam from August 2018. IMPRESSION IMPRESSION Findings compatible with multinodular goiter. Dominant large rightthyroid nodule, visually similar to prior. 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, or unspecified Bronchiectasis without complication (HCC) Bronchiectasis without acute exacerbation Rheumatoid arthritis involving multiple sites with positive rheumatoid factor (HCC) Thyroid nodule Nontoxic uninodular goiter Mixed hyperlipidemia Risk and functional assessment Screening for unspecified condition Fall, initial encounter Abnormal LFTs Other abnormal blood chemistry documented in this encounter Advance Directives Documents on File Type Date Recorded 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
--- OUTSIDE RECORDS SUMMARY | 2023-01-29 05:08 | External Medical Summary | Summary of Care ---
Author Name Unknown Organization [place] [address] Care Team Providers Care Rheumatologist Name Role Phone William Chavez MD Primary Care Provider + Reason for Visit * Reason Comments eRx-Medication Refill Encounter Details Date Type Department Care Team Description 06/20/2020 Refill General Internal Medicine [facility] [address] [facility] [place] [id number] William Chavez MD [address] [place] [address] [phone] Bronchiectasis (HCC) Allergies No Known Active Allergiesdocumented as of this encounter (statuses as of 06/22/2020) Medications Medication Sig Dispensed Refills Start Date [...] TWICE DAILY 10.6 g 5 06/22/2020 Active fluticasone (FLOVENT HFA) 44 MCG/ACT inhalerIndications :Bronchiectasis (HCC) Inhale 1 Puff by mouth 2 times a day. 10.6 g 4 06/19/2019 Discontinued documented as of this encounter (statuses as of 06/22/2020) Active Problems Problem Noted Date Thyroid nodule [...] as of this encounter (statuses as of 06/22/2020) Resolved Problems Problem Noted Date Resolved Date History of rheumatoid arthritis 09/04/2017 08/20/2018 History of rheumatoid arthritis 01/06/2016 07/27/2016 Kidney disease, chronic, stage III (GFR 30-59 ml /min) 08/09/2014 07/30/2017 Overview: Per CKD protocol #1 HTN, goal below 140/90 8 Kidney disease, chronic, stage III (GFR 30-59 ml /min) 03/24/2012 documented as of this encounter (statuses as of 06/22/2020) Immunizations Name Administration Dates Next Due Pneumococcal [...] Telephone Encounter - William Chavez MD - 06/22/2020 8:33 AM EST Signed Prescriptions: Disp Refills Flovent HFA 44 MCG/ACT Inhalation Aerosol *10.6 g 5 Sig: INHALE ONE PUFF BY MOUTH TWICE DAILY Authorizing Provider: WILLIAM CHAVEZ * Telephone Encounter - Caroline Gomes [facility] - 06/22/2020 8:20 AM EST Pending Prescriptions: Disp Refills Flovent HFA 44 MCG/ACT Inhalation Aerosol*10.6 g 5 Sig: INHALE ONE PUFF BY MOUTH TWICE DAILY * Telephone Encounter - Caroline Gomes [facility] - 06/22/2020 8:19 AM EST Unable to authorize medication refills for pended medication(s) at this time. Part of the protocol criteria used for refill authorization was not satisfied. Patient needs a short-acting beta agonist on file for pharmacists to approve. Please approve if appropriate. Thanks, Caroline Gomes Clinical Pharmacist Telepharmacy 06/22/2020, 8:19 AM * Telephone Encounter - Caroline Gomes [facility] - 06/22/2020 8:19 AM EST Pending Prescriptions: Disp Refills Flovent HFA 44 MCG/ACT Inhalation Aerosol*10.6 g 0 Sig: INHALE ONE PUFF BY MOUTH TWICE DAILY Last Office/Telemedicine Visit: 03/21/2020 Next Office Visit: 07/20/2020 Scheduled Provider(s): William Chavez MD If no future appointments scheduled, and last appointment is greater than a year ago, please schedule patient for a follow-up appointment Last date the medication was ordered: 06/19/19 Pharmacy: [id number] Is this request for a controlled substance?No Urine Drug Screen:No results found for this or any previous visit. Patient Phone Numbers mobile [phone] Labs: Lab Results Component Value Date/Time CREAT 1.15 03/15/2020 CREAT 1.3 (H) 05/04/2016 12:09 PM POTASSIUM 4.6 05/04/2016 12:09 PM TSH 0.82 06/24/2013 12:14 PM LDLCALC 108 (H) 03/15/2020 LDLCALC 119 05/04/2016 12:09 PM LDLDIRECT 107 06/11/2014 02:22 PM ALT 10 05/04/2016 12:09 PM documented in this encounter Plan of Treatment Upcoming Encounters Date Type Specialty Care Team Description 07/20/2020 Office Visit Internal Medicine William Chavez MD [address] [place] [address] [phone] 08/03/2020 Office Visit Rheumatology Carlos Alberto Matthews MD [address] [facility] [place] [address] [phone] Health Maintenance Due Date Last Done Comments Zoster Vaccines (2 of 3) 03/07/2015 01/10/2015 FOBT ANNUALLY,AGES 18-90 03/22/2017 03/22/2016, 09/26 CKD GFR USE SMARTSET 86741 09/13/202003/15, 11/18/2019, 11/11/2018, Additional history exists CKD HGB USE SMARTSET 52215 11/17/202011/17, 10/22/2018, 07/06/2016, Additional history exists CKD PHOS USE SMARTSET 54347 03/15/202102/25, 10/22/2018, 05/04/2016 DIABETES SCREEN EVERY 3 [...] Documents on File Type Date Recorded Patient Driver'S License Examiner Expl anation Advanced Directive Advanced Directive Advanced Directive Advanced Directive Advanced Directive Advanced Directive Advanced Directive Advanced Directive Advanced Directive Advanced Directive Advanced Directive Advanced Directive Advanced Directive Advanced Directive Advanced Directive Advanced Directive
--- OUTSIDE RECORDS SUMMARY | 2023-01-29 05:09 | External Medical Summary | Summary of Care ---
Author Name Unknown Organization [place] [address] Care Team Providers Care Press Feeder Broomcorn Name Role Phone William Joseph MD Primary Care Provider + Reason for Visit * Reason Comments Ultrasound Encounter Details Date Type Department Care Team Description 08/10/2019 Telephone General Internal Medicine [facility] [address] [place] [address] William Joseph MD [address] [place] [address] Ultrasound Allergies No Known Allergiesdocumented as of this encounter (statuses as of 08/14/2019) Medications Medication Sig Dispensed Refills Start Date End Date Status benzonatate (TESSALON PERLES) 100 MG CapsuleIndications:Co ugh Take 1 Cap by mouth 2 times a day as needed for Cough. Do not cut, crush, or chew. 50 Cap 1 06/03/2018 Active predniSONE (DELTASONE) 5 MG TabletIndications:H/O rheumatoid arthritis Take 1 Tab by mouth daily. 30 Tab 1 06/01/2019 Active fluticasone (FLOVENT HFA) 44 MCG/ACT inhalerIndications:Br onchiectasis (HCC) Inhale 1 Puff by mouth 2 times a day. 10.6 g 4 06/19/2019 Active Tofacitinib Citrate (XELJANZ) 5 MG TABSIndications:Rheum atoid arthritis involving multiple sites with positive rheumatoid factor (HCC) Take 5 mg by mouth daily. Xeljanz AUTH # [id number] VALID DATES: 02/26/19-02/26/2021 60 Tab 5 07/14/2019 Active Additional Information Patient not taking. Reported on 08/10/2019 10:16 AM vitamin b-12 (CYANOCOBALAMIN) 1000 MCG/ML injectionIndications: Pernicious anemia inject 1ml into a large muscle every month 1 mL 4 07/23/2019 Active Cholecalciferol (VITAMIN D3) 50 MCG (2000 UT) Tablet Take 2,000 Units by mouth daily. 0 Active Benazepril HCl (LOTENSIN) 40 MG TabletIndications:Marquez ign hypertension 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) Take 1 Tab by mouth daily. 30 Tab 11 08/10/2019 Active documented as of this encounter (statuses as of 08/14/2019) Active Problems Problem Noted Date Thyroid nodule [...] as of this encounter (statuses as of 08/14/2019) Resolved Problems Problem Noted Date Resolved Date History of rheumatoid arthritis 09/04/2017 08/20/2018 History of rheumatoid arthritis 01/06/2016 07/27/2016 Kidney disease, chronic, stage III (GFR 30-59 ml /min) 08/09/2014 07/30/2017 Overview: Per CKD protocol #1 HTN, goal below 140/90 8 Kidney disease, chronic, stage III (GFR 30-59 ml /min) 03/24/2012 documented as of this encounter (statuses as of 08/14/2019) Immunizations Name Administration Dates Next Due Pneumococcal Conjugate Vacc, 13 Valent (Prevnar) 07/13/2015 Pneumococcal Polysaccharide PPV23 (Pneumovax) 06/08/2013,03/19/2013(Deferred: Patient Refused - not interested) Seasonal Influenza, Quadriva lent, No Preserve, 6 Mons & Above, IM 05/22/2018 Seasonal Influenza, Quadriva lent, No Preserve, IM [...] file Not on file Not on file Travel History Travel Start Travel End documented as of this encounter Miscellaneous Notes * Telephone Encounter - Tiffanie Weinstein OSA - 08/14/2019 11:04 AM EDT Several attempts letter sent * Telephone Encounter - Tiffanie Weinstein OSA - 08/13/2019 10:58 AM EDT LMOM #2; Myg sent * Telephone Encounter - Edna Oneal OSA - 08/10/2019 1:59 PM EDT LMOM to set up us. If pt calls, please schedule. * Telephone Encounter - William Joseph MD - 08/10/2019 11:04 AM EDT Patient due for thyroid u/s in August, pls schedule documented in this encounter Plan of Treatment Upcoming Encounters Date Type Specialty Care Team Description 09/10/2019 Nurse Only Ancillary Nurse, Int Med [address] [place] [address] [phone] 10/06/2019 Office Visit Rheumatology Carlos Alberto Matthews MD [address] [facility] [place] [address] [phone] 02/11/2020 Office Visit Internal Medicine William Joseph MD [address] [place] [address] [phone] Health Maintenance Due Date Last Done Comments Zoster Vaccines (2 of 3) 03/07/2015 01/10/2015 FOBT ANNUALLY,AGES 18-90 03/22/2017 03/22/2016, 09/26 CKD GFR USE SMARTSET 69110 05/13/201911/11, 10/22/2018, 05/04/2016, Additional history exists CKD HGB USE SMARTSET 33520 10/23/201910/22, 07/06/2016, 05/04/2016, Additional history exists CKD PHOS USE SMARTSET 47877 10/23/2019 10/22/2018, 1 07/05/2015 DIABETES SCREEN EVERY 3 YRS-AGE 45 AND ABOVE 11/11/2021 11/11/2018, 10/22/2018, 05/04/2016, Additional history exists DTaP,Tdap,and Td Vaccines (2 - Td) 01/10/2025 01/10/2015 Pneumococcal Vaccine: 65+ Years Completed 07/13/2015, 06/08/2013 Influenza Vaccine (FLU shot) Completed , 05/22/2018, 06/05/2017, Additional history exists MENINGOCOCCAL (MENACTRA/MENVEO) Aged Out No longer eligible based on patient's age to complete this topic documented as of this encounter Implants Not on filedocumented as of this encounter Advance Directives Documents on File Type Date Recorded Patient Neon Sign Servicer Expl anation Advanced Directive Advanced Directive Advanced Directive Advanced Directive Advanced Directive Advanced Directive Advanced Directive Advanced Directive Advanced Directive
--- OUTSIDE RECORDS SUMMARY | 2023-01-29 05:09 | External Medical Summary | Summary of Care ---
Author Name Unknown Organization [place] [address] Care Team Providers Care Labor Commissioner Name Role Phone William Joseph MD Primary Care Provider + Reason for Visit * Reason Comments Ultrasound Encounter Details Date Type Department Care Team Description 08/10/2019 Telephone General Internal Medicine [facility] 200 [place] [address] William Joseph MD 200 [place] [address] Ultrasound Allergies No Known Allergiesdocumented [...] mg by mouth daily. Xeljanz AUTH # [id number] VALID DATES: 02/26/19-02/26/2021 60 Tab 5 07/14/2019 [...] Ancillary Nurse, Int Med [address] [place] [address] [phone] 10/06/2019 Office Visit Rheumatology Carlos Alberto Matthews MD [address] [facility] [place] [address] [phone] 02/11/2020 Office Visit Internal Medicine William Joseph MD [address] [place] [address] [phone] Health Maintenance Due Date Last Done Comments Zoster Vaccines (2 of 3) 03/07/2015 01/10/2015 FOBT ANNUALLY,AGES 18-90 03/22/2017 03/22/2016, 09/26 CKD GFR USE SMARTSET 68514 05/13/201911/11, 10/22/2018, 05/04/2016, Additional history exists CKD HGB USE SMARTSET 24067 10/23/201910/22, 07/06/2016, 05/04/2016, Additional history exists CKD PHOS USE SMARTSET 99209 10/23/2019 10/22/2018, 1 07/05/2015 DIABETES SCREEN EVERY [...] Documents on File Type Date Recorded Patient Video Games Storywriter Expl anation Advanced Directive Advanced Directive Advanced Directive Advanced Directive Advanced Directive Advanced Directive Advanced Directive Advanced Directive Advanced Directive
--- OUTSIDE RECORDS SUMMARY | 2023-01-29 05:09 | External Medical Summary | Summary of Care ---
Author Name Unknown Organization [place] [address] Care Team Providers Care Peeler Operator Name Role Phone William Joseph MD Primary Care Provider + Reason for Referral * (Routine) Status Reason Specialty Diagnoses / Procedures Referred By Contact Referred To Contact Pending Review Diagnoses Thyroid nodule Procedures US HEAD AND NECK William Joseph MD [address] [place] [address] Reason for Visit * Reason Comments Re-Check Sinus Problem congestion, green dr jordan Cough ongoing Fall about 1 month ago - injured right hand; patient denies hitting head Encounter Details Date Type Department Care Team Description 02/18/2020 Office Visit General Internal Medicine [facility] [address] [place] [address] William Joseph MD [address] [place] [address] [phone] Acute maxillary sinusitis, recurrence not specified*; 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); Bronchiectasis without complication (HCC); Rheumatoid arthritis involving multiple sites with positive rheumatoid factor ([facility]); Thyroid nodule; Mixed hyperlipidemia; Risk and functional assessment; Fall, initial encounter Allergies No Known Active Allergiesdocumented as of this encounter (statuses as of 02/18/2020) Medications Medication Sig Dispensed Refills Start Date End Date Status fluticasone (FLOVENT HFA) 44 MCG/ACT inhalerIndications:B ronchiectasis (HCC) Inhale 1 Puff by mouth 2 times a day. 10.6 g 4 06/19/2019 Active Cholecalciferol (VITAMIN D3) 50 MCG (2000 UT) Tablet Take 2,000 Units by mouth. Every 2 - 3 days 0 Active amlodipine-benazepri l 5-20 mg per cap (LOTREL) 5-20 MG per capsuleIndications:B enign hypertension 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) TAKE ONE CAPSULE BY MOUTH DAILY 90 Cap 1 09/07/2019 Active benzonatate (TESSALON PERLES) 100 MG CapsuleIndications:C ough Take 1 Cap by mouth 2 times a day as needed for Cough. Do not cut, crush, or chew. 50 Cap 2 10/20/2019 Active predniSONE (DELTASONE) 5 MG TabletIndications:H/ O rheumatoid arthritis Take 1 Tab by mouth daily. 30 Tab 5 10/20/2019 Active Additional Information Patient taking differently: 10-15 mg Oral DAILY PRN, RA Flare up, Reported on 02/18/2020 vitamin b-12 (CYANOCOBALAMIN) 1000 MCG/ML injectionIndications :Pernicious anemia inject 1ml into a large muscle every month 1 mL 4 01/29/2020 Active Amoxicillin-Pot Clavulanate 875-125 MG Oral TabletIndications:Ac jessica maxillary sinusitis, recurrence not specified Take 1 Tab by mouth every 12 hours for 7 days. 14 Tab 0 02/18/2020 02/25/2020 Active documented as of this encounter (statuses as of 02/18/2020) Active Problems Problem Noted Date Thyroid nodule [...] as of this encounter (statuses as of 02/18/2020) Resolved Problems Problem Noted Date Resolved Date History of rheumatoid arthritis 09/04/2017 08/20/2018 History of rheumatoid arthritis 01/06/2016 07/27/2016 Kidney disease, chronic, stage III (GFR 30-59 ml /min) 08/09/2014 07/30/2017 Overview: Per CKD protocol #1 HTN, goal below 140/90 8 Kidney disease, chronic, stage III (GFR 30-59 ml /min) 03/24/2012 documented as of this encounter (statuses as of 02/18/2020) Immunizations Name Administration Dates Next Due Pneumococcal [...] pathway between the bedroom and the bathroom Salma Patient Education Copyright 2009 - 2010 Salma except where otherwise noted [...] 10 times. Repeat this throughout the day. Course Hero Patient Education Copyright 2008 Course Hero except where otherwise noted. Preventing Falls: Moving [...] that mean climbing, even on a stepstool. Course Hero Patient Education Copyright 2008 - 2010 Course Hero except where otherwise noted. Treating Urinary Incontinence [...] Progress Notes * William Joseph MD - 02/18/2020 10:42 AM EDT Chief [...] drug monitoring Z51.81 Pernicious anemia D51.0 Bronchiectasis ([facility]) J47.9 Thoracic aortic aneurysm ([facility]) I71.2 Benign hypertension with CKD (chronic kidney disease) stage III ([facility]) I12.9, N18.3 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 Bunion, left foot M21.612 Primary osteoarthritis of right hip M16.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 ([facility]) M05.79 Mixed hyperlipidemia E78.2 Thyroid nodule E04.1 Secondary hyperparathyroidism ([facility]) N25.81 Current Outpatient Medications Medication Sig Dispense [...] ANNUALLY,AGES 18-90 03/22/2017 CKD PHOS USE SMARTSET 53845 10/23/2019 *DEPRESSION SCREENING,ANNUAL FOR PTS 12 AND [...] level: Not on file Occupational History Occupation: [employer] 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 Wilkinson 3 months William Joseph MD documented in this encounter Nursing Notes * Kelvin Simon RN - 02/18/2020 9:56 AM EDT Chief Complaint Patient presents with Re-Check Sinus Problem congestion, green drainage Cough ongoing Fall about 1 month ago - injured right hand; patient denies hitting head documented in this encounter Plan of Treatment Upcoming Encounters Date Type Specialty Care Team Description 02/25/2020 Imaging Radiology 03/21/2020 Office Visit Internal Medicine Juan Carlos Barry PA-C [address] [place] [address] [phone] 05/25/2020 Office Visit Internal Medicine William Joseph MD [address] [place] [facility] [place] [address] [phone] 08/03/2020 Office Visit Rheumatology Carlos Alberto Matthews MD [address] [facility] [place] [address] [phone] Scheduled Orders Name Type Priority Associated Diagnoses Orde r Schedule PHOSPHORUS Lab Routine 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) Ordered: 02/18/2020 US HEAD AND NECK Medical Imaging Routine Thyroid nodule Ordered: 02/18/2020 COMPR METAB PANEL Lab Routine 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) Ordered: 02/18/2020 LIPID PANEL WITH DIRECT LDL IF TRIGLYCERIDE IS ELEVATED Lab Routine Mixed hyperlipidemia Ordered: 02/18/2020 Health Maintenance Due Date Last Done Comments Zoster Vaccines (2 of 3) 03/07/2015 01/10/2015 FOBT ANNUALLY,AGES 18-90 03/22/2017 03/22/2016, 09/26 CKD PHOS USE SMARTSET 80504 10/23/2019 10/22/2018, 1 07/05/2015 *DEPRESSION SCREENING,ANNUAL FOR PTS 12 AND OVER 12/21/2019 Influenza Vaccine (FLU shot) (#1) 2019 03/24/2019, 05/22/2018, 06/05/2017, Additional history exists CKD GFR USE SMARTSET 62969 05/19/202011/17, 11/11/2018, 10/22/2018, Additional history exists CKD HGB USE SMARTSET 39987 11/17/202011/17, 10/22/2018, 07/06/2016, Additional history exists DIABETES SCREEN EVERY 3 YRS-AGE 45 AND ABOVE 11/17/2022 11/18/2019, 11/11/2018, 10/22/2018, Additional history exists DTaP,Tdap,and Td Vaccines (2 [...] Screening for unspecified condition Fall, initial encounter documented in this encounter Advance Directives Documents on File Type Date Recorded Patient Manager Fixed Income Expl anation Advanced Directive Advanced Directive Advanced Directive Advanced Directive Advanced Directive Advanced Directive Advanced Directive Advanced Directive Advanced Directive Advanced Directive Advanced Directive Advanced Directive Advanced Directive
--- OUTSIDE RECORDS SUMMARY | 2023-01-29 05:09 | External Medical Summary | Summary of Care ---
Author Name Unknown Organization [place] [address] Care Team Providers Care Ager Operator Name Role Phone William Joseph MD Primary Care Provider + Reason for Visit * Reason Comments Ultrasound Encounter Details Date Type Department Care Team Description 08/10/2019 Telephone General Internal Medicine [facility] [address] [place] [address] William Joseph MD [address] [place] [address] Ultrasound Allergies No Known Allergiesdocumented as of this encounter (statuses as of 08/13/2019) Medications Medication Sig Dispensed Refills Start Date [...] mg by mouth daily. Xeljanz AUTH # [id number] VALID DATES: 02/26/19-02/26/2021 60 Tab 5 07/14/2019 [...] as of this encounter (statuses as of 08/13/2019) Active Problems Problem Noted Date Thyroid nodule [...] as of this encounter (statuses as of 08/13/2019) Resolved Problems Problem Noted Date Resolved Date History of rheumatoid arthritis 09/04/2017 08/20/2018 History of rheumatoid arthritis 01/06/2016 07/27/2016 Kidney disease, chronic, stage III (GFR 30-59 ml /min) 08/09/2014 07/30/2017 Overview: Per CKD protocol #1 HTN, goal below 140/90 8 Kidney disease, chronic, stage III (GFR 30-59 ml /min) 03/24/2012 documented as of this encounter (statuses as of 08/13/2019) Immunizations Name Administration Dates Next Due Pneumococcal [...] Ancillary Nurse, Int Med [address] [place] [address] [phone] 10/06/2019 Office Visit Rheumatology Carlos Alberto Matthews MD [address] [facility] [place], [place] [address] [phone] 02/11/2020 Office Visit Internal Medicine William Joseph MD [address] [place] [address] [phone] Health Maintenance Due Date Last Done Comments Zoster Vaccines (2 of 3) 03/07/2015 01/10/2015 FOBT ANNUALLY,AGES 18-90 03/22/2017 03/22/2016, 09/26 CKD GFR USE SMARTSET 83522 05/13/201911/11, 10/22/2018, 05/04/2016, Additional history exists CKD HGB USE SMARTSET 80821 10/23/201910/22, 07/06/2016, 05/04/2016, Additional history exists CKD PHOS USE SMARTSET 00987 10/23/2019 10/22/2018, 1 07/05/2015 DIABETES SCREEN EVERY [...] Documents on File Type Date Recorded Patient Ecmo Specialist Expl anation Advanced Directive Advanced Directive Advanced Directive Advanced Directive Advanced Directive Advanced Directive Advanced Directive Advanced Directive Advanced Directive
--- OUTSIDE RECORDS SUMMARY | 2023-01-29 05:09 | External Medical Summary | Summary of Care ---
Author Name Unknown Organization [place] [address] Care Team Providers Care Data Communications Analyst Name Role Phone William Joseph MD Primary Care Provider + Reason for Visit * Reason Comments Ultrasound Encounter Details Date Type Department Care Team Description 08/10/2019 Telephone General Internal Medicine [facility] [address] [place] [address] William Joseph MD [address] [place] [address] Ultrasound Allergies No Known Allergiesdocumented as of this encounter (statuses as of 08/10/2019) Medications Medication Sig Dispensed Refills Start Date [...] mg by mouth daily. Xeljanz AUTH # [id number] VALID DATES: 02/26/19-02/26/2021 60 Tab 5 07/14/2019 [...] as of this encounter (statuses as of 08/10/2019) Active Problems Problem Noted Date Thyroid nodule [...] as of this encounter (statuses as of 08/10/2019) Resolved Problems Problem Noted Date Resolved Date History of rheumatoid arthritis 09/04/2017 08/20/2018 History of rheumatoid arthritis 01/06/2016 07/27/2016 Kidney disease, chronic, stage III (GFR 30-59 ml /min) 08/09/2014 07/30/2017 Overview: Per CKD protocol #1 HTN, goal below 140/90 8 Kidney disease, chronic, stage III (GFR 30-59 ml /min) 03/24/2012 documented as of this encounter (statuses as of 08/10/2019) Immunizations Name Administration Dates Next Due Pneumococcal [...] encounter Miscellaneous Notes * Telephone Encounter - Edna Oneal OSA [...] Ancillary Nurse, Int Med [address] [place] [address] [phone] 10/06/2019 Office Visit Rheumatology Carlos Alberto Matthews MD [facility] [place], [place] [address] [phone] 02/11/2020 Office Visit Internal Medicine [email or web address] William Villanueva MD [address] [place] [address] [phone] Health Maintenance Due Date Last Done Comments Zoster Vaccines (2 of 3) 03/07/2015 01/10/2015 FOBT ANNUALLY,AGES 18-90 03/22/2017 03/22/2016, 09/26 CKD GFR USE SMARTSET 00355 05/13/201911/11, 10/22/2018, 05/04/2016, Additional history exists CKD HGB USE SMARTSET 21562 10/23/201910/22, 07/06/2016, 05/04/2016, Additional history exists CKD PHOS USE SMARTSET 34897 10/23/2019 10/22/2018, 1 07/05/2015 DIABETES SCREEN EVERY [...] Documents on File Type Date Recorded Patient Benefits Sales Consultant Expl anation Advanced Directive Advanced Directive Advanced Directive Advanced Directive Advanced Directive Advanced Directive Advanced Directive Advanced Directive Advanced Directive
--- OUTSIDE RECORDS SUMMARY | 2023-01-29 05:09 | External Medical Summary | Summary of Care ---
Author Name Unknown Organization [place] [address] Care Team Providers Care Proposal Editor Name Role Phone William Joseph MD Primary Care Provider + Reason for Visit * Reason Comments Ultrasound Encounter Details Date Type Department Care Team Description 08/10/2019 Telephone General Internal Medicine [facility] [address] [place] [address] William Joseph MD [address] [place] [address] Ultrasound Allergies No Known Allergiesdocumented as of this encounter (statuses as of 08/12/2019) Medications Medication Sig Dispensed Refills Start Date [...] mg by mouth daily. Xeljanz AUTH # [id number] VALID DATES: 02/26/19-02/26/2021 60 Tab 5 07/14/2019 [...] as of this encounter (statuses as of 08/12/2019) Active Problems Problem Noted Date Thyroid nodule [...] as of this encounter (statuses as of 08/12/2019) Resolved Problems Problem Noted Date Resolved Date History of rheumatoid arthritis 09/04/2017 08/20/2018 History of rheumatoid arthritis 01/06/2016 07/27/2016 Kidney disease, chronic, stage III (GFR 30-59 ml /min) 08/09/2014 07/30/2017 Overview: Per CKD protocol #1 HTN, goal below 140/90 8 Kidney disease, chronic, stage III (GFR 30-59 ml /min) 03/24/2012 documented as of this encounter (statuses as of 08/12/2019) Immunizations Name Administration Dates Next Due Pneumococcal [...] Ancillary Nurse, Int Med [address] [place] [address] [phone] 10/06/2019 Office Visit Rheumatology Carlos Alberto Matthews MD [facility] [place], [place] [address] [phone] 02/11/2020 Office Visit Internal Medicine [facility], William Villanueva MD 200 [place] [address] [phone] Health Maintenance Due Date Last Done Comments Zoster Vaccines (2 of 3) 03/07/2015 01/10/2015 FOBT ANNUALLY,AGES 18-90 03/22/2017 03/22/2016, 09/26 CKD GFR USE SMARTSET 51010 05/13/201911/11, 10/22/2018, 05/04/2016, Additional history exists CKD HGB USE SMARTSET 95754 10/23/201910/22, 07/06/2016, 05/04/2016, Additional history exists CKD PHOS USE SMARTSET 02271 10/23/2019 10/22/2018, 1 07/05/2015 DIABETES SCREEN EVERY [...] Documents on File Type Date Recorded Patient Inside Sales Trainer Expl anation Advanced Directive Advanced Directive Advanced Directive Advanced Directive Advanced Directive Advanced Directive Advanced Directive Advanced Directive Advanced Directive
--- OUTSIDE RECORDS SUMMARY | 2023-01-29 05:09 | External Medical Summary | Summary of Care ---
Author Name Unknown Organization [place] [address] Care Team Providers Care Botanical Technical Officer Name Role Phone William Chavez MD Primary Care Provider + Reason for Visit * Reason Comments Pt Portal Med Renewal Encounter Details Date Type Department Care Team Description 01/29/2020 Refill General Internal Medicine [facility] [address] [place] [address] William Chavez MD [address] [place] [address] [phone] Pernicious anemia Allergies No Known Allergiesdocumented as of this encounter (statuses as of 01/29/2020) Medications Medication Sig Dispensed Refills Start Date End Date Status fluticasone (FLOVENT HFA) 44 MCG/ACT inhalerIndications :Bronchiectasis (HCC) Inhale 1 Puff by mouth 2 times a day. 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 Xeljanz AUTH # [id number] VALID DATES: 02/26/19-02/27/20 21 60 Tab 5 07/14/2019 Active Additional Information Patient not taking. Reported on 08/10/2019 10:16 AM Cholecalciferol (VITAMIN D3) 50 MCG (2000 UT) Tablet Take 2,000 Units by mouth daily. 0 Active amlodipine-benazep ril 5-20 mg per cap (LOTREL) 5-20 MG per capsuleIndications :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) TAKE ONE CAPSULE BY MOUTH DAILY 90 Cap 1 09/07/2019 Active benzonatate (TESSALON PERLES) 100 MG CapsuleIndications :Cough Take 1 Cap by mouth 2 times a day as needed for Cough. Do not cut, crush, or chew. 50 Cap 2 10/20/2019 Active predniSONE (DELTASONE) 5 MG TabletIndications: H/O rheumatoid arthritis Take 1 Tab by mouth daily. 30 Tab 5 10/20/2019 Active vitamin b-12 (CYANOCOBALAMIN) 1000 MCG/ML injectionIndicatio ns:Pernicious anemia inject 1ml into a large muscle every month 1 mL 4 01/29/2020 Active vitamin b-12 (CYANOCOBALAMIN) 1000 MCG/ML injectionIndicatio ns:Pernicious anemia inject 1ml into a large muscle every month 1 mL 4 07/23/2019 01/29/2020 Discontinue d(Refill) documented as of this encounter (statuses as of 01/29/2020) Active Problems Problem Noted Date Thyroid nodule [...] as of this encounter (statuses as of 01/29/2020) Resolved Problems Problem Noted Date Resolved Date History of rheumatoid arthritis 09/04/2017 08/20/2018 History of rheumatoid arthritis 01/06/2016 07/27/2016 Kidney disease, chronic, stage III (GFR 30-59 ml /min) 08/09/2014 07/30/2017 Overview: Per CKD protocol #1 HTN, goal below 140/90 8 Kidney disease, chronic, stage III (GFR 30-59 ml /min) 03/24/2012 documented as of this encounter (statuses as of 01/29/2020) Immunizations Name Administration Dates Next Due Pneumococcal [...] Telephone Encounter - William Chavez MD - 01/29/2020 4:56 PM EDT Signed Prescriptions: Disp Refills vitamin b-12 (CYANOCOBALAMIN) 1000 MCG/ML *1 mL 4 Sig: inject 1ml into a large muscle every month Authorizing Provider: WILLIAM CHAVEZ * Telephone Encounter - Patricia Flor LPN - 01/29/2020 4:32 PM EDT Pending Prescriptions: Disp Refills vitamin b-12 (CYANOCOBALAMIN) 1000 MCG/ML*1 mL 4 Last Office/Telemedicine Visit: 08/10/2019 Next Office Visit: 02/11/2020 Scheduled Provider(s): William Chavez MD Last date the medication was ordered: 07/23/19 Patient Active Problem List Diagnosis Code Encounter for therapeutic drug monitoring Z51.81 Pernicious anemia D51.0 Bronchiectasis (HCC) J47.9 Thoracic aortic aneurysm (HCC) I71.2 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) I12.9, N18.3 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 Bunion, left foot M21.612 Primary osteoarthritis of right hip M16.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 ([facility]) M05.79 Mixed hyperlipidemia E78.2 Thyroid nodule E04.1 Secondary hyperparathyroidism (HCC) N25.81 Labs: CREATININE-OUTSIDE LAB(MG/DL) Nikita Dt/Tm Resulted Value Status 11/18/19 11/20/19 1.38* FINAL POTASSIUM-OUTSIDE LAB(MMOL/L) Nikita Dt/Tm Resulted Value Status 11/18/19 11/20/19 4.4 FINAL TSH - OUTSIDE LAB(MIU/L) Nikita Dt/Tm Resulted Value Status 10/22/18 10/27/18 0.87 FINAL LDL (CALCULATED)-OUTSIDE LAB(MG/DL) Nikita Dt/Tm Resulted Value Status 11/18/19 11/20/19 125* FINAL 11/11/18 11/13/18 114* FINAL ALT-OUTSIDE LAB(U/L) Nikita Dt/Tm Resulted Value Status 11/18/19 11/20/19 12 FINAL Hemoglobin AIC Results: No HEMOGLOBIN, A1C components found * Telephone Encounter - Patricia Flor LPN - 01/29/2020 4:28 PM EDT Message from [employer]: Ignacioharoon Garcia would like a refill of the following medications: vitamin b-12 (CYANOCOBALAMIN) 1000 MCG/ML injection [William Chavez MD] Preferred pharmacy: [facility] [id number] documented in this encounter Plan of Treatment Upcoming Encounters Date Type Specialty Care Team Description 02/03/2020 Office Visit Rheumatology Carlos Alberto Matthews MD [facility] [place] [address] [phone] 02/11/2020 Office Visit Internal Medicine William Chavez MD 200 [place] [address] [phone] Health Maintenance Due Date Last Done Comments Zoster Vaccines (2 of 3) 03/07/2015 01/10/2015 FOBT ANNUALLY,AGES 18-90 03/22/2017 03/22/2016, 09/26 CKD PHOS USE SMARTSET 11365 10/23/2019 10/22/2018, 1 07/05/2015 *DEPRESSION SCREENING,ANNUAL FOR PTS 12 AND OVER 12/21/2019 Influenza Vaccine (FLU shot) (#1) 2019 03/24/2019, 05/22/2018, 06/05/2017, Additional history exists CKD GFR USE SMARTSET 31826 05/19/202011/17, 11/11/2018, 10/22/2018, Additional history exists CKD HGB USE SMARTSET 59228 11/17/202011/17, 10/22/2018, 07/06/2016, Additional history exists DIABETES [...] Documents on File Type Date Recorded Patient Manufacturing Management Associate Expl anation Advanced Directive Advanced Directive Advanced Directive Advanced Directive Advanced Directive Advanced Directive Advanced Directive Advanced Directive Advanced Directive
--- OUTSIDE RECORDS SUMMARY | 2023-01-29 05:09 | External Medical Summary | Summary of Care ---
Author Name Unknown Organization [place] [address] Care Team Providers Care Motion Picture Cameraman Name Role Phone William Chavez MD Primary Care Provider + Reason for Visit * Reason Comments eRx-Medication Refill Encounter Details Date Type Department Care Team Description 09/06/2019 Refill General Internal Medicine [facility] [address] [place] [address] William Chavez MD [address] [place] [address] 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) Allergies No Known Allergiesdocumented as of this encounter (statuses as of 09/07/2019) Medications Medication Sig Dispensed Refills Start Date End Date Status benzonatate (TESSALON PERLES) 100 MG CapsuleIndications :Cough Take 1 Cap by mouth 2 times a day as needed for Cough. Do not cut, crush, or chew. 50 Cap 1 06/03/2018 Active predniSONE (DELTASONE) 5 MG TabletIndications: H/O rheumatoid arthritis Take 1 Tab by mouth daily. 30 Tab 1 06/01/2019 Active fluticasone (FLOVENT HFA) 44 MCG/ACT inhalerIndications :Bronchiectasis (HCC) Inhale 1 Puff by mouth 2 times a day. 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 Xeljanz AUTH # [id number] VALID DATES: 02/26/19-02/27/20 21 60 Tab 5 07/14/2019 Active Additional Information Patient not taking. Reported on 08/10/2019 10:16 AM vitamin b-12 (CYANOCOBALAMIN) 1000 MCG/ML injectionIndicatio ns:Pernicious [...] MOUTH DAILY 90 Cap 1 09/07/2019 Active amlodipine-benazep ril 5-20 mg per cap (LOTREL) 5-20 MG per capsuleIndications :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) Take 1 Cap by mouth daily. 90 Cap 3 09/02/2019 0 Discontinued documented as of this encounter (statuses as of 09/07/2019) Active Problems Problem Noted Date Thyroid nodule [...] as of this encounter (statuses as of 09/07/2019) Resolved Problems Problem Noted Date Resolved Date History of rheumatoid arthritis 09/04/2017 08/20/2018 History of rheumatoid arthritis 01/06/2016 07/27/2016 Kidney disease, chronic, stage III (GFR 30-59 ml /min) 08/09/2014 07/30/2017 Overview: Per CKD protocol #1 HTN, goal below 140/90 8 Kidney disease, chronic, stage III (GFR 30-59 ml /min) 03/24/2012 documented as of this encounter (statuses as of 09/07/2019) Immunizations Name Administration Dates Next Due Pneumococcal [...] encounter Miscellaneous Notes * Telephone Encounter - Sindy Marroquin [facility] - 09/07/2019 1:31 PM EDT Signed Prescriptions: Disp Refills amlodipine-benazepril 5-20 mg per cap (LOT*90 Cap 1 Sig: TAKE ONE CAPSULE BY MOUTH DAILY Authorizing Provider: WILLIAM CHAVEZ User: SINDY MARROQUIN-- documented in this encounter Plan of Treatment Upcoming Encounters Date Type Specialty Care Team Description 09/10/2019 Nurse Only Ancillary Nurse, Int Med 200 [place] [address] [phone] 02/03/2020 Office Visit Rheumatology Carlos Alberto Matthews MD [address] [facility] [place] [address] [phone] 02/11/2020 Office Visit Internal Medicine William Chavez MD 200 [facility], [place] [address] Health Maintenance Due Date Last Done Comments Zoster Vaccines (2 of 3) 03/07/2015 01/10/2015 FOBT ANNUALLY,AGES 18-90 03/22/2017 03/22/2016, 09/26 CKD GFR USE SMARTSET 89219 05/13/201911/11, 10/22/2018, 05/04/2016, Additional history exists CKD HGB USE SMARTSET 50996 10/23/201910/22, 07/06/2016, 05/04/2016, Additional history exists CKD PHOS USE SMARTSET 22510 10/23/2019 10/22/2018, 1 07/05/2015 DIABETES SCREEN EVERY [...] Documents on File Type Date Recorded Patient Emergency Doctor Expl anation Advanced Directive Advanced Directive Advanced Directive Advanced Directive Advanced Directive Advanced Directive Advanced Directive Advanced Directive Advanced Directive
--- OUTSIDE RECORDS SUMMARY | 2023-01-29 05:09 | External Medical Summary | Summary of Care ---
Author Name Unknown Organization [place] [address] Care Team Providers Care Commercial Front Load Operator Name Role Phone William Joseph MD Primary Care Provider + Reason for Visit * Reason Comments Test Results Encounter Details Date Type Department Care Team Description 11/26/2019 Telephone Nephrology, [facility] [address] [place] [address] Lisbeth Ward MD [address] [place] [address] Test Results Allergies No Known Allergiesdocumented as of this encounter (statuses as of 11/26/2019) Medications Medication Sig Dispensed Refills Start Date End Date Status fluticasone (FLOVENT HFA) 44 MCG/ACT inhalerIndications:Br onchiectasis (HCC) Inhale 1 Puff by mouth 2 times a day. 10.6 g 4 06/19/2019 Active Tofacitinib Citrate (XELJANZ) 5 MG TABSIndications:Rheum atoid arthritis involving multiple sites with positive rheumatoid factor (HCC) Take 5 mg by mouth daily. Xeljanz AUTH # [id number] VALID DATES: 02/26/19-02/26/2021 60 Tab 5 07/14/2019 Active Additional Information Patient not taking. Reported on 08/10/2019 10:16 AM vitamin b-12 (CYANOCOBALAMIN) 1000 MCG/ML injectionIndications: Pernicious anemia inject 1ml into a large muscle every month 1 mL 4 07/23/2019 Active Cholecalciferol (VITAMIN D3) 50 MCG (1999 UT) Tablet Take 2,000 Units by mouth daily. 0 Active amlodipine-benazepril 5-20 mg per cap [...] mouth daily. 30 Tab 5 10/20/2019 Active documented as of this encounter (statuses as of 11/26/2019) Active Problems Problem Noted Date Thyroid nodule [...] as of this encounter (statuses as of 11/26/2019) Resolved Problems Problem Noted Date Resolved Date History of rheumatoid arthritis 09/04/2017 08/20/2018 History of rheumatoid arthritis 01/06/2016 07/27/2016 Kidney disease, chronic, stage III (GFR 30-59 ml /min) 08/09/2014 07/30/2017 Overview: Per CKD protocol #1 HTN, goal below 140/90 8 Kidney disease, chronic, stage III (GFR 30-59 ml /min) 03/24/2012 documented as of this encounter (statuses as of 11/26/2019) Immunizations Name Administration Dates Next Due Pneumococcal [...] Telephone Encounter - Raegan Stephens LPN - 11/26/2019 2:19 PM EDT [facility] with results. Schedulers- please call and assist to schedule f/u appt with Dr. Ward, next available. * Telephone Encounter - Reagan Stephens LPN - 11/26/2019 2:17 PM EDT ----- Message from Lisbeth Ward MD sent at 11/26/2019 1:18 PM EDT ----- Stable ckd 3. Overdue for appt and recommend one pls next avail per last note; some adjustments to meds may be needed. documented in this encounter Plan of Treatment Upcoming Encounters Date Type Specialty Care Team Description 02/03/2020 Office Visit Rheumatology Carlos Alberto Matthews MD [address] [place] [address] [phone] 02/11/2020 Office Visit Internal Medicine William Joseph MD [address] [place] [address] [phone] Health Maintenance Due Date Last Done Comments Zoster Vaccines (2 of 3) 03/07/2015 01/10/2015 FOBT ANNUALLY,AGES 18-90 03/22/2017 03/22/2016, 09/26 CKD PHOS USE SMARTSET 83969 10/23/2019 10/22/2018, 1 07/05/2015 Influenza Vaccine (FLU shot) (#1) 2020 03/24/2019, 05/22/2018, 06/05/2017, Additional history exists CKD GFR USE SMARTSET 25740 05/19/202011/17, 11/11/2018, 10/22/2018, Additional history exists CKD HGB USE SMARTSET 94503 11/17/202011/17, 10/22/2018, 07/06/2016, Additional history exists DIABETES [...] Documents on File Type Date Recorded Patient Candy Decorator Expl anation Advanced Directive Advanced Directive Advanced Directive Advanced Directive Advanced Directive Advanced Directive Advanced Directive Advanced Directive Advanced Directive
--- OUTSIDE RECORDS SUMMARY | 2023-01-29 05:09 | External Medical Summary | Summary of Care ---
Author Name Unknown Organization [place] [address] Care Team Providers Care Correctional Guard Name Role Phone William Joseph MD Primary Care Provider + Reason for Visit * Reason Comments Test Results Encounter Details Date Type Department Care Team Description 11/26/2019 Telephone Nephrology, [facility] [address] [place] [address] Lisbeth Ward MD [address] [place] [address] Test Results Allergies No Known Allergiesdocumented as of this encounter (statuses as of 12/01/2019) Medications Medication Sig Dispensed Refills Start Date End Date Status fluticasone (FLOVENT HFA) 44 MCG/ACT inhalerIndications:Br onchiectasis (HCC) Inhale 1 Puff by mouth 2 times a day. 10.6 g 4 06/19/2019 Active Tofacitinib Citrate (XELJANZ) 5 MG TABSIndications:Rheum atoid arthritis involving multiple sites with positive rheumatoid factor (HCC) Take 5 mg by mouth daily. Xeljanz AUTH # [id number] VALID DATES: 02/26/19-02/26/2021 60 Tab 5 07/14/2019 [...] as of this encounter (statuses as of 12/01/2019) Active Problems Problem Noted Date Thyroid nodule [...] as of this encounter (statuses as of 12/01/2019) Resolved Problems Problem Noted Date Resolved Date History of rheumatoid arthritis 09/04/2017 08/20/2018 History of rheumatoid arthritis 01/06/2016 07/27/2016 Kidney disease, chronic, stage III (GFR 30-59 ml /min) 08/09/2014 07/30/2017 Overview: Per CKD protocol #1 HTN, goal below 140/90 8 Kidney disease, chronic, stage III (GFR 30-59 ml /min) 03/24/2012 documented as of this encounter (statuses as of 12/01/2019) Immunizations Name Administration Dates Next Due Pneumococcal [...] Telephone Encounter - Raegan Stephens LPN - 12/01/2019 12:01 PM EDT Noted and appreciated * Telephone Encounter - Nichole Edwards OSA - 12/01/2019 11:53 AM EDT [facility] no answer/machine; sent MyG message & letter for pt to schedule; pt on recall. * Telephone Encounter - Raegan Stephens LPN - 11/26/2019 2:19 PM EDT [facility] with results. Schedulers- please call and assist to schedule f/u appt with Dr. Ward, next available. * Telephone Encounter - Raegan Stephens LPN - 11/26/2019 2:17 PM EDT [...] Visit Rheumatology Carlos Alberto Matthews MD [address] [place] [address] 02/11/2020 Office Visit Internal Medicine William Joseph MD [address] [address] [phone] Health Maintenance Due Date Last Done Comments Zoster Vaccines (2 of 3) 03/07/2015 01/10/2015 FOBT ANNUALLY,AGES 18-90 03/22/2017 03/22/2016, 09/26 CKD PHOS USE SMARTSET 48290 10/23/2019 10/22/2018, 1 07/05/2015 Influenza Vaccine (FLU shot) (#1) 2020 03/24/2019, 05/22/2018, 06/05/2017, Additional history exists CKD GFR USE SMARTSET 39254 05/19/202011/17, 11/11/2018, 10/22/2018, Additional history exists CKD HGB USE SMARTSET 76591 11/17/202011/17, 10/22/2018, 07/06/2016, Additional history exists DIABETES [...] Documents on File Type Date Recorded Patient Planner Chief Expl anation Advanced Directive Advanced Directive Advanced Directive Advanced Directive Advanced Directive Advanced Directive Advanced Directive Advanced Directive Advanced Directive
--- OUTSIDE RECORDS SUMMARY | 2023-01-29 05:09 | External Medical Summary | Summary of Care ---
Author Name Unknown Organization [place] [address] Care Team Providers Care Rotary Kiln Operator Name Role Phone William Joseph MD Primary Care Provider + Reason for Visit * Reason Comments Test Results Encounter Details Date Type Department Care Team Description 11/26/2019 Telephone Nephrology, [facility] [address] [place] [address] Lisbeth Ward MD [address] [place] [address] Test Results Allergies No Known [...] mg by mouth daily. Xeljanz AUTH # [id number] VALID DATES: 02/26/19-02/26/2021 60 Tab 5 07/14/2019 [...] encounter Miscellaneous Notes * Telephone Encounter - Nichole Edwards OSA - 12/01/2019 11:53 AM EDT [facility] no answer/machine; sent MyG message & letter for pt to schedule; pt on recall. * Telephone Encounter - Raegan Stephens LPN - 11/26/2019 2:19 PM EDT My [facility] with results. Schedulers- please call and assist [...] Visit Rheumatology Carlos Alberto Matthews MD [address] [place] [address] [phone] 02/11/2020 Office Visit Internal Medicine William Joseph MD [address] [place] [address] [phone] Health Maintenance Due Date Last Done Comments Zoster Vaccines (2 of 3) 03/07/2015 01/10/2015 FOBT ANNUALLY,AGES 18-90 03/22/2017 03/22/2016, 09/26 CKD PHOS USE SMARTSET 83748 10/23/2019 10/22/2018, 1 07/05/2015 Influenza Vaccine (FLU shot) (#1) 2020 03/24/2019, 05/22/2018, 06/05/2017, Additional history exists CKD GFR USE SMARTSET 31273 05/19/202011/17, 11/11/2018, 10/22/2018, Additional history exists CKD HGB USE SMARTSET 35388 11/17/202011/17, 10/22/2018, 07/06/2016, Additional history exists DIABETES [...] Documents on File Type Date Recorded Patient Journal Entry Audit Clerk Expl anation Advanced Directive Advanced Directive Advanced Directive Advanced Directive Advanced Directive Advanced Directive Advanced Directive Advanced Directive Advanced Directive
--- OUTSIDE RECORDS SUMMARY | 2023-01-29 05:09 | External Medical Summary | Summary of Care ---
Author Name Unknown Organization [place] [address] Care Team Providers Care Certified Medication Technician Name Role Phone William Chavez MD Primary Care Provider + Reason for Referral * (Routine) Status Reason Specialty Diagnoses / Procedures Referred By Contact Referred To Contact Pending Review Diagnoses Thyroid nodule Procedures US HEAD AND NECK William Chavez MD [address] [place] [address] * (Routine) Status Reason Specialty Diagnoses / Procedures Referred By Contact Referred To Contact Pending Review Diagnoses Thyroid nodule Procedures US HEAD AND NECK William Chavez MD [address] [place] [address] Reason for Visit * Reason Comments Re-Check Sinus Problem congestion, green dr jordan Cough ongoing Fall about 1 month ago - injured right hand; patient denies hitting head Encounter Details Date Type Department Care Team Description 02/18/2020 Office Visit General Internal Medicine [facility] [address] [place] [address] William Chavez MD [address] [place] [id number] [phone] Acute maxillary sinusitis, recurrence not specified*; 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); Bronchiectasis without complication (HCC); Rheumatoid arthritis involving multiple sites with positive rheumatoid factor (HCC); Thyroid nodule; Mixed hyperlipidemia; Risk and functional assessment; Fall, initial encounter Allergies No Known Active Allergiesdocumented as of this encounter (statuses as of 02/26/2020) Medications Medication Sig Dispensed Refills Start Date [...] as of this encounter (statuses as of 02/26/2020) Active Problems Problem Noted Date Thyroid nodule [...] as of this encounter (statuses as of 02/26/2020) Resolved Problems Problem Noted Date Resolved Date History of rheumatoid arthritis 09/04/2017 08/20/2018 History of rheumatoid arthritis 01/06/2016 07/27/2016 Kidney disease, chronic, stage III (GFR 30-59 ml /min) 08/09/2014 07/30/2017 Overview: Per CKD protocol #1 HTN, goal below 140/90 8 Kidney disease, chronic, stage III (GFR 30-59 ml /min) 03/24/2012 documented as of this encounter (statuses as of 02/26/2020) Immunizations Name Administration Dates Next Due Pneumococcal [...] and the bathroom Salma Patient Education Copyright 2008 - 2010 Salma [...] 10 times. Repeat this throughout the day. [employer] Patient Education Copyright 2008 [employer] except where otherwise noted. Preventing Falls: Moving [...] that mean climbing, even on a stepstool. [employer] Patient Education Copyright 2008 [employer] except where otherwise noted. Treating Urinary Incontinence [...] drug monitoring Z51.81 Pernicious anemia D51.0 Bronchiectasis ([facility]) J47.9 Thoracic aortic aneurysm ([facility]) I71.2 Benign hypertension with CKD (chronic kidney disease) stage III ([facility]) I12.9, N18.3 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 Bunion, left foot M21.612 Primary osteoarthritis of right hip M16.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 ([facility]) M05.79 Mixed hyperlipidemia E78.2 Thyroid nodule E04.1 Secondary hyperparathyroidism ([facility]) N25.81 Current Outpatient Medications Medication Sig Dispense [...] ANNUALLY,AGES 18-90 03/22/2017 CKD PHOS USE SMARTSET 77822 10/23/2019 *DEPRESSION SCREENING,ANNUAL FOR PTS 12 AND [...] level: Not on file Occupational History 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 Employer: [employer] Social Needs Financial resource strain: Not on [...] file Gets together: Not on file Attends mandaeism service: Not on file Active member of [...] Internal Medicine Juan Carlos Barry PA-C [address] [facility] [place], [place] [address] [phone] 05/25/2020 Office Visit Internal Medicine William Chavez MD [address] [facility] [place] [address] [phone] 08/03/2020 Office Visit Rheumatology Carlos Alberto Matthews MD [address] [facility] [place] [address] [phone] Scheduled Orders Name Type Priority Associated Diagnoses Orde r Schedule PHOSPHORUS Lab Routine 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) Ordered: 02/18/2020 COMPR METAB PANEL Lab Routine 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) Ordered: 02/18/2020 LIPID PANEL WITH DIRECT LDL IF TRIGLYCERIDE IS ELEVATED Lab Routine Mixed hyperlipidemia Ordered: 02/18/2020 US HEAD AND NECK Medical Imaging Routine Thyroid nodule Expected: 02/25/2021, Expires: 03/28/2021 Health Maintenance Due Date Last Done Comments Zoster Vaccines (2 of 3) 03/07/2015 01/10/2015 FOBT ANNUALLY,AGES 18-90 03/22/2017 03/22/2016, 09/26 CKD PHOS USE SMARTSET 14609 10/23/2019 10/22/2018, 1 07/05/2015 Influenza Vaccine (FLU shot) (#1) 2019 03/24/2019, 05/22/2018, 06/05/2017, Additional history exists CKD GFR USE SMARTSET 00128 05/19/202011/17, 11/11/2018, 10/22/2018, Additional history exists CKD HGB USE SMARTSET 14385 11/17/202011/17, 10/22/2018, 07/06/2016, Additional history exists DIABETES [...] Procedure Name Priority Date/Time Associated Diagnosis Comments US HEAD AND NECK Routine 02/25/2020 3:14 PM EDT Thyroid nodule documented in this encounter Results * US HEAD AND NECK (02/25/2020 3:14 PM EDT) Specimen Impressions Performed At IMPRESSION Findings compatible with multinodular goiter. Dominant large right thyroid nodule, visually similar to prior. [facility] Narrative Performed At EXAM 02/25/2020 3:14 [...] 4.6 cm on exam from August 2018. [facility] Procedure Note Interface, Rad In - [...] large rightthyroid nodule, visually similar to prior. [facility] documented in this encounter Visit Diagnoses [...] Documents on File Type Date Recorded Patient Psychologist Expl anation Advanced Directive Advanced Directive Advanced Directive Advanced Directive Advanced Directive Advanced Directive Advanced Directive Advanced Directive Advanced Directive Advanced Directive Advanced Directive Advanced Directive Advanced Directive Advanced Directive
--- OUTSIDE RECORDS SUMMARY | 2023-01-29 05:09 | External Medical Summary | Summary of Care ---
Author Name Unknown Organization [place] [address] Care Team Providers Care Filter Press Pumper Name Role Phone William Joseph MD Primary Care Provider + Reason for Visit * Reason Comments eRx-Medication Refill Encounter Details Date Type Department Care Team Description 01/29/2020 Refill General Internal Medicine [facility] [address] [place] [address] William Joseph MD [address] [place] [id number] Pernicious anemia Allergies No Known Allergiesdocumented as of this encounter (statuses as of 01/31/2020) Medications Medication Sig Dispensed Refills Start Date End Date Status fluticasone (FLOVENT HFA) 44 MCG/ACT inhalerIndications:Br onchiectasis (HCC) Inhale 1 Puff by mouth 2 times a day. 10.6 g 4 06/19/2019 Active Tofacitinib Citrate (XELJANZ) 5 MG TABSIndications:Rheum atoid arthritis involving multiple sites with positive rheumatoid factor (HCC) Take 5 mg by mouth daily. Xeljanz AUTH # [id number] VALID DATES: 02/26/19-02/26/2021 60 Tab 5 07/14/2019 [...] 10/20/2019 Active vitamin b-12 (CYANOCOBALAMIN) 1000 MCG/ML injectionIndications: Pernicious anemia inject 1ml into a large muscle every month 1 mL 4 01/29/2020 Active documented as of this encounter (statuses as of 01/31/2020) Active Problems Problem Noted Date Thyroid nodule [...] as of this encounter (statuses as of 01/31/2020) Resolved Problems Problem Noted Date Resolved Date History of rheumatoid arthritis 09/04/2017 08/20/2018 History of rheumatoid arthritis 01/06/2016 07/27/2016 Kidney disease, chronic, stage III (GFR 30-59 ml /min) 08/09/2014 07/30/2017 Overview: Per CKD protocol #1 HTN, goal below 140/90 8 Kidney disease, chronic, stage III (GFR 30-59 ml /min) 03/24/2012 documented as of this encounter (statuses as of 01/31/2020) Immunizations Name Administration Dates Next Due Pneumococcal [...] Miscellaneous Notes * Telephone Encounter - Harry Colindres RPh - 01/31/2020 12:29 PM EDT Refused Prescriptions: Disp Refills vitamin b-12 (CYANOCOBALAMIN) 1000 MCG/ML *1 mL 0 Sig: inject 1ml into a large muscle ONCE EVERY MONTH Refused By: HARRY COLINDRES for Refusal: Duplicate R equest documented in this encounter Plan of Treatment Upcoming Encounters Date Type Specialty Care Team Description 02/03/2020 Office Visit Rheumatology Harry Matthews MD [address] [place] [address] [phone] 02/11/2020 Office Visit Internal Medicine William Joseph MD [address] [place] [address] [phone] Health Maintenance Due Date Last Done Comments Zoster Vaccines (2 of 3) 03/07/2015 01/10/2015 FOBT ANNUALLY,AGES 18-90 03/22/2017 03/22/2016, 09/26 CKD PHOS USE SMARTSET 14420 10/23/2019 10/22/2018, 1 07/05/2015 *DEPRESSION SCREENING,ANNUAL FOR PTS 12 AND OVER 12/21/2019 Influenza Vaccine (FLU shot) (#1) 2019 03/24/2019, 05/22/2018, 06/05/2017, Additional history exists CKD GFR USE SMARTSET 70289 05/19/202011/17, 11/11/2018, 10/22/2018, Additional history exists CKD HGB USE SMARTSET 94234 11/17/202011/17, 10/22/2018, 07/06/2016, Additional history exists DIABETES [...] Documents on File Type Date Recorded Patient 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
--- OUTSIDE RECORDS SUMMARY | 2023-01-29 05:09 | External Medical Summary | Summary of Care ---
Author Name Unknown Organization [place] [address] Care Team Providers Care Bakery Team Leader Name Role Phone William Joseph MD Primary Care Provider + Encounter Details Date Type Department Care Team Description 11/20/2019 Orders Only General Internal Medicine [facility] [address] [place] [address] William Joseph MD [address] [place] [address] [phone] Allergies No Known Allergiesdocumented as of this encounter (statuses as of 11/20/2019) Medications Medication Sig Dispensed Refills Start Date End Date Status fluticasone (FLOVENT HFA) 44 MCG/ACT inhalerIndications:Br onchiectasis (HCC) Inhale 1 Puff by mouth 2 times a day. 10.6 g 4 06/19/2019 Active Tofacitinib Citrate (XELJANZ) 5 MG TABSIndications:Rheum atoid arthritis involving multiple sites with positive rheumatoid factor (HCC) Take 5 mg by mouth daily. Xeljanz AUTH # [id number] VALID DATES: 02/26/19-02/26/2021 60 Tab 5 07/14/2019 [...] as of this encounter (statuses as of 11/20/2019) Active Problems Problem Noted Date Thyroid nodule [...] as of this encounter (statuses as of 11/20/2019) Resolved Problems Problem Noted Date Resolved Date History of rheumatoid arthritis 09/04/2017 08/20/2018 History of rheumatoid arthritis 01/06/2016 07/27/2016 Kidney disease, chronic, stage III (GFR 30-59 ml /min) 08/09/2014 07/30/2017 Overview: Per CKD protocol #1 HTN, goal below 140/90 8 Kidney disease, chronic, stage III (GFR 30-59 ml /min) 03/24/2012 documented as of this encounter (statuses as of 11/20/2019) Immunizations Name Administration Dates Next Due Pneumococcal [...] Travel End documented as of this encounter Plan of Treatment Upcoming Encounters Date Type Specialty Care Team Description 02/03/2020 Office Visit Rheumatology Carlos Alberto Matthews MD [address] [place] [address] [phone] 02/11/2020 Office Visit Internal Medicine William Joseph MD [address] [facility] [place] [place] [address] [phone] Health Maintenance Due Date Last Done Comments Zoster Vaccines (2 of 3) 03/07/2015 01/10/2015 FOBT ANNUALLY,AGES 18-90 03/22/2017 03/22/2016, 09/26 CKD GFR USE SMARTSET 17347 05/13/201911/11, 10/22/2018, 05/04/2016, Additional history exists CKD HGB USE SMARTSET 39479 10/23/201910/22, 07/06/2016, 05/04/2016, Additional history exists CKD PHOS USE SMARTSET 86009 10/23/2019 10/22/2018, 1 07/05/2015 *BASIC METABOLIC PANEL (BMP) FOR HTN YEARLY 11/17/2019 DIABETES SCREEN EVERY 3 YRS-AGE 45 AND [...] Documents on File Type Date Recorded Patient Leather Goods Sales Representative Expl anation Advanced Directive Advanced Directive Advanced Directive Advanced Directive Advanced Directive Advanced Directive Advanced Directive Advanced Directive Advanced Directive
--- OUTSIDE RECORDS SUMMARY | 2023-01-29 05:09 | External Medical Summary | Summary of Care ---
Author Name Unknown Organization [place] [address] Care Team Providers Care Political Organizer Name Role Phone William Joseph MD Primary Care Provider + Reason for Visit * Reason Comments Rheum Follow Up 4 month return Encounter Details Date Type Department Care Team Description 02/03/2020 Office Visit Rheumatology [facility] [email or web address] [place] [address] Carlos Alberto Matthews MD [email or web address] [address] [phone] Rheumatoid arthritis involving multiple sites with positive rheumatoid factor (HCC)*; Primary osteoarthritis of right hip; Benign hypertension with CKD (chronic kidney disease) stage III ([facility]); Encounter for therapeutic drug monitoring Allergies No Known Allergiesdocumented as of this encounter (statuses as of 02/03/2020) Medications Medication Sig Dispensed Refills Start Date End Date Status fluticasone (FLOVENT HFA) 44 MCG/ACT inhalerIndications: Bronchiectasis (HCC) Inhale 1 Puff by mouth 2 times a day. 10.6 g 4 06/19/2019 Active Cholecalciferol (VITAMIN D3) 50 MCG (1999 UT) Tablet Take 2,000 Units by mouth daily. 0 Active amlodipine-benazepr il 5-20 mg per [...] 10/20/2019 Active vitamin b-12 (CYANOCOBALAMIN) 1000 MCG/ML injectionIndication s:Pernicious anemia inject 1ml into a large muscle every month 1 mL 4 01/29/2020 Active Tofacitinib Citrate (XELJANZ) 5 MG TABSIndications:Rhe umatoid arthritis involving multiple sites with positive rheumatoid factor (HCC) Take 5 mg by mouth daily. Xeljanz AUTH # [id number] VALID DATES: 02/26/19-02/26 60 Tab 5 07/14/2019 02/03/2020 Discontinued (Patient preference/d iscontinuati on) documented as of this encounter (statuses as of 02/03/2020) Active Problems Problem Noted Date Thyroid nodule [...] as of this encounter (statuses as of 02/03/2020) Resolved Problems Problem Noted Date Resolved Date History of rheumatoid arthritis 09/04/2017 08/20/2018 History of rheumatoid arthritis 01/06/2016 07/27/2016 Kidney disease, chronic, stage III (GFR 30-59 ml /min) 08/09/2014 07/30/2017 Overview: Per CKD protocol #1 HTN, goal below 140/90 8 Kidney disease, chronic, stage III (GFR 30-59 ml /min) 03/24/2012 documented as of this encounter (statuses as of 02/03/2020) Immunizations Name Administration Dates Next Due Pneumococcal [...] Travel End documented as of this encounter Last Filed Vital Signs Vital Sign Reading Time Taken Comments Blood Pressure 138/86 02/03/2020 1:00 PM EDT Pulse - - Temperature 36.8 C (98.3 F) 02/03/2020 1:00 PM ED T Respiratory Rate - - Oxygen Saturation - - Inhaled Oxygen Concentration - - Weight 74.8 kg (165 lb) 02/03/2020 1:00 PM EDT Height - - Body Mass Index 25.84 12/17/2018 2:11 PM EDT documented in this encounter Progress Notes * Carlos Alberto Matthews MD - 02/03/2020 1:04 PM EDT Subjective: Patient seen today for further follow up evaluation of rheumatoid arthritis, osteoarthritis. Since the last visit he never started xeljanz because of covid - he was to start around the time covid started. He has been dong pretty well. Mainly staying at home - works from home. He is seldom uses prednisone for swelling. He did have a fall a few weeks ago and injured his right hand.he banged the dorsum of his right hand on the concrete. He had a lot of bruising to the dorsal hand. Can be a little tender. He also reports that he did a lot a cutting with scissors after the hand injury and then hisdorsal hand swelled up. It has been like this a few weeks. No real numbness. Some mild tenderness. He wonders about tendinitis. His breathing is stable. Gets short of breath and has a cough. He also reports ongoing sinus issues for the last month. A lot of nasal congestion in the mornings. No fever, headaches or sinus pressures. Wondering if he needs treatment. Musculoskeletal ROS: . Abnormal: joint pain and joint swelling . Pain scale (0-10): 3 Other ROS: . Constitutional: normal . Head normal . Eyes: normal . Ears, nose, throat, mouth: dry mouth and nasal congestion . Cardiovascular: normal . Respiratory: cough and dyspnea on exertion . Gastrointestinal: normal . Genitourinary: normal All other ROS reviewed and negative Social History: Social History Tobacco Use Smoking status: Former Smoker Packs/day: 2.00 Years: 35.00 Pack years: 70.00 Types: Cigarettes Last attempt to quit: 06/25/1990 Years since quittin.6 Smokeless tobacco: Never Used Substance Use Topics Alcohol use: Yes Alcohol/week: 5.8 standard drinks Types: 7 Mixed drink(s) containing 1.5 shots of alcohol per week Comment: occassional Vaping/E-Cigarette Use Vaping/E-Cigarette Substances Vaping/E-Cigarette Devices Current Outpatient Medications Medication Sig Dispense Refill vitamin b-12 (CYANOCOBALAMIN) 1000 MCG/ML injection inject 1ml into a large muscle every month 1 mL 4 benzonatate (TESSALON PERLES) 100 MG Capsule Take 1 Cap by mouth 2 times a day as needed for Cough. Do not cut, crush, or chew. 50 Cap 2 predniSONE (DELTASONE) 5 MG Tablet Take 1 Tab by mouth daily. 30 Tab 5 amlodipine-benazepril 5-20 mg per cap (LOTREL) 5-20 MG per capsule TAKE ONE CAPSULE BY MOUTH DAILY 90 Cap 1 Cholecalciferol (VITAMIN D3) 50 MCG (2000 UT) Tablet Take 2,000 Units by mouth daily. fluticasone (FLOVENT HFA) 44 MCG/ACT inhaler Inhale 1 Puff by mouth 2 times a day. 10.6 g 4 Physical Exam: BP 138/86 | Temp 36.8 C (98.3 F) (Tympanic) | Wt 74.8 kg (165 lb) | BMI 25.84 kg/m | BSA 1.88m General: alert, healthy, no distress and well nourished Neck: supple, no adenopathy, thyroid normal size, non-tender, without nodularity Lymph: no palpable lymphadenopathy Heart: regular rate & rhythm and no gallops Lungs: Coarse breath sounds with expiratory wheezing. Rhonchi noted. Abdomen: abdomen soft, non-tender and normal bowel sounds Extremities: no clubbing, no cyanosis Skin: skin color, texture, turgor are normal, resolving ecchymosis noted on the right hand Musculoskeletal Exam: No active synovitis noted Right dorsal hand swelling with no redness. Mild tenderness. Question Tenosynovial fluid verses resolving hematoma. 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 [...] 6. Return to clinic in 6 months Carlos Alberto Matthews MD Department of Rheumatology documented in this encounter Nursing Notes * Josi Romo LPN - 02/03/2020 1:02 PM EDT Chief Complaint Patient presents with Rheum Follow Up 4 month return documented in this encounter Plan of Treatment Upcoming Encounters Date Type Specialty Care Team Description 02/11/2020 Office Visit Internal Medicine William Joseph MD [address] [facility], [place] [id number] 08/03/2020 Office Visit Rheumatology Carlos Alberto Matthews MD [address] [place] [address] [phone] Health Maintenance Due Date Last Done Comments Zoster Vaccines (2 of 3) 03/07/2015 01/10/2015 FOBT ANNUALLY,AGES 18-90 03/22/2017 03/22/2016, 09/26 CKD PHOS USE SMARTSET 00434 10/23/2019 10/22/2018, 1 07/05/2015 *DEPRESSION SCREENING,ANNUAL FOR PTS 12 AND OVER 12/21/2019 Influenza Vaccine (FLU shot) (#1) 2019 03/24/2019, 05/22/2018, 06/05/2017, Additional history exists CKD GFR USE SMARTSET 88404 05/19/202011/17, 11/11/2018, 10/22/2018, Additional history exists CKD HGB USE SMARTSET 91370 11/17/202011/17, 10/22/2018, 07/06/2016, Additional history exists DIABETES [...] sites with positive rheumatoid factor (HCC)- Primary Primary osteoarthritis of right hip Primary localized osteoarthrosis, pelvic region and thigh 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
--- OUTSIDE RECORDS SUMMARY | 2023-01-29 05:09 | External Medical Summary | Summary of Care ---
Author Name Unknown Organization [place] [address] Care Team Providers Care Mechanical Project Engineer Name Role Phone William Joseph MD Primary Care Provider + Reason for Visit * Reason Comments Pt Portal Med Renewal Encounter Details Date Type Department Care Team Description 10/20/2019 Refill General Internal Medicine [facility] [address] [place] [address] William Joseph MD [address] [place] [address] Cough; H/O rheumatoid arthritis Allergies No Known Allergiesdocumented as of this encounter (statuses as of 10/20/2019) Medications Medication Sig Dispensed Refills Start Date End Date Status fluticasone (FLOVENT HFA) 44 MCG/ACT inhalerIndications :Bronchiectasis (HCC) Inhale 1 Puff by mouth 2 times a day. 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 Xeljanz AUTH # [id number] VALID DATES: 02/26/19-02/27/20 21 60 Tab 5 [...] mouth daily. 30 Tab 5 10/20/2019 Active benzonatate (TESSALON PERLES) 100 MG CapsuleIndications :Cough Take 1 Cap by mouth 2 times a day as needed for Cough. Do not cut, crush, or chew. 50 Cap 1 06/03/2018 10/20/2019 Discontinue d(Refill) predniSONE (DELTASONE) 5 MG TabletIndications: H/O rheumatoid arthritis Take 1 Tab by mouth daily. 30 Tab 1 06/01/2019 10/20/2019 Discontinue d(Refill) documented as of this encounter (statuses as of 10/20/2019) Active Problems Problem Noted Date Thyroid nodule [...] as of this encounter (statuses as of 10/20/2019) Resolved Problems Problem Noted Date Resolved Date History of rheumatoid arthritis 09/04/2017 08/20/2018 History of rheumatoid arthritis 01/06/2016 07/27/2016 Kidney disease, chronic, stage III (GFR 30-59 ml /min) 08/09/2014 07/30/2017 Overview: Per CKD protocol #1 HTN, goal below 140/90 8 Kidney disease, chronic, stage III (GFR 30-59 ml /min) 03/24/2012 documented as of this encounter (statuses as of 10/20/2019) Immunizations Name Administration Dates Next Due Pneumococcal [...] Telephone Encounter - Karthik Patrick MD - 10/20/2019 4:01 PM EDT Signed Prescriptions: Disp Refills benzonatate (TESSALON PERLES) 100 MG Capsu*50 Cap 2 Sig: Take 1 Cap by mouth 2 times a day as needed for Cough. Do not cut, crush, or chew. Authorizing Provider: KARTHIK PATRICK predniSONE (DELTASONE) 5 MG Tablet 30 Tab 5 Sig: Take 1 Tab by mouth daily. Authorizing Provider: KARTHIK PATRICK * Telephone Encounter - Patricia Flor LPN - 10/20/2019 10:42 AM EDT Pending Prescriptions: Disp Refills benzonatate (TESSALON PERLES) 100 MG Caps*50 Cap 1 Sig: Take 1 Cap by mouth 2 times a day as needed for Cough. Do not cut, crush, or chew. predniSONE (DELTASONE) 5 MG Tablet 30 Tab 1 Sig: Take 1 Tab by mouth daily. Last Office/Telemedicine Visit: 08/10/2019 Next Office Visit: 02/11/2020 Scheduled Provider(s): William Joseph MD Last date the medication was ordered: 06/01/19 Patient Active Problem List Diagnosis Code Encounter for therapeutic drug monitoring Z51.81 Pernicious anemia D51.0 Bronchiectasis ([facility]) J47.9 Thoracic aortic aneurysm ([facility]) I71.2 Benign hypertension with CKD (chronic kidney disease) stage III ([facility]) I12.9, N18.3 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 Bunion, left foot M21.612 Primary osteoarthritis of right hip M16.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 ([facility]) M05.79 Mixed hyperlipidemia E78.2 Thyroid nodule E04.1 Secondary hyperparathyroidism ([facility]) N25.81 Labs: CREATININE-OUTSIDE LAB(MG/DL) Nikita Dt/Tm Resulted Value Status 11/11/18 11/13/18 1.35* FINAL POTASSIUM-OUTSIDE LAB(MMOL/L) Nikita Dt/Tm Resulted Value Status 11/11/18 11/13/18 4.4 FINAL TSH - OUTSIDE LAB(MIU/L) Nikita Dt/Tm Resulted Value Status 10/22/18 10/27/18 0.87 FINAL LDL (CALCULATED)-OUTSIDE LAB(MG/DL) Nikita Dt/Tm Resulted Value Status 11/11/18 11/13/18 114* FINAL 10/22/18 10/27/18 112 FINAL ALT-OUTSIDE LAB(U/L) Nikita Dt/Tm Resulted Value Status 11/11/18 11/13/18 18 FINAL Hemoglobin AIC Results: No HEMOGLOBIN, A1C components found * Telephone Encounter - Patricia Flor LPN - 10/20/2019 10:41 AM EDT Message from Iainer: Ignacio Jay Jose would like a refill of the following medications: benzonatate (TESSALON PERLES) 100 MG Capsule [William Joseph MD] predniSONE (DELTASONE) 5 MG Tablet [William Joseph MD] Preferred pharmacy: [id number] documented in this encounter Plan of Treatment Upcoming Encounters Date Type Specialty Care Team Description 02/03/2020 Office Visit Rheumatology Carlos Alberto Matthews MD [address] [place] [address] [phone] 02/11/2020 Office Visit Internal Medicine William Joseph MD [address] [facility] [place], [place] [address] [phone] Health Maintenance Due Date Last Done Comments Zoster Vaccines (2 of 3) 03/07/2015 01/10/2015 FOBT ANNUALLY,AGES 18-90 03/22/2017 03/22/2016, 09/26 CKD GFR USE SMARTSET 75695 05/13/201911/11, 10/22/2018, 05/04/2016, Additional history exists CKD HGB USE SMARTSET 07794 10/23/201910/22, 07/06/2016, 05/04/2016, Additional history exists CKD PHOS USE SMARTSET 34152 10/23/2019 10/22/2018, 1 07/05/2015 DIABETES SCREEN EVERY [...] of this encounter Visit Diagnoses Diagnosis Cough H/O rheumatoid arthritis Personal history of arthritis documented in this encounter Advance Directives Documents on File Type Date Recorded Patient Metal Wire Technician Expl anation Advanced Directive Advanced Directive Advanced Directive Advanced Directive Advanced Directive Advanced Directive Advanced Directive Advanced Directive Advanced Directive
--- OUTSIDE RECORDS SUMMARY | 2023-01-29 05:09 | External Medical Summary | Summary of Care ---
Author Name Unknown Organization [place] [address] Care Team Providers Care Plastic Tubing Insulation Supervisor Name Role Phone William Joseph MD Primary Care Provider + Reason for Visit * Reason Comments Test Results Encounter Details Date Type Department Care Team Description 11/23/2019 Telephone General Internal Medicine [facility] [address] [place] [address] William Joseph MD [address] [place] [address] Test Results Allergies No Known Allergiesdocumented as of this encounter (statuses as of 11/23/2019) Medications Medication Sig Dispensed Refills Start Date End Date Status fluticasone (FLOVENT HFA) 44 MCG/ACT inhalerIndications:Br onchiectasis (HCC) Inhale 1 Puff by mouth 2 times a day. 10.6 g 4 06/19/2019 Active Tofacitinib Citrate (XELJANZ) 5 MG TABSIndications:Rheum atoid arthritis involving multiple sites with positive rheumatoid factor (HCC) Take 5 mg by mouth daily. Xeljanz AUTH # [id number] VALID DATES: 02/26/19-02/26/2021 60 Tab 5 07/14/2019 [...] as of this encounter (statuses as of 11/23/2019) Active Problems Problem Noted Date Thyroid nodule [...] as of this encounter (statuses as of 11/23/2019) Resolved Problems Problem Noted Date Resolved Date History of rheumatoid arthritis 09/04/2017 08/20/2018 History of rheumatoid arthritis 01/06/2016 07/27/2016 Kidney disease, chronic, stage III (GFR 30-59 ml /min) 08/09/2014 07/30/2017 Overview: Per CKD protocol #1 HTN, goal below 140/90 8 Kidney disease, chronic, stage III (GFR 30-59 ml /min) 03/24/2012 documented as of this encounter (statuses as of 11/23/2019) Immunizations Name Administration Dates Next Due Pneumococcal [...] encounter Miscellaneous Notes * Telephone Encounter - Bibiana Quick LPN - 11/23/2019 3:02 PM EDT Pt aware and verbalized understanding. Pt not willing to start any statins. * Telephone Encounter - Glenys Huffman OSA - 11/23/2019 3:00 PM EDT Reason for patient's call: returning call Caller was transferred to Bibiana at the nurse line. * Telephone Encounter - Tran Velazquez LPN - 11/23/2019 10:28 AM EDT Called, left message to return call. Please confirm pharmacy if willing ot take crestor. * Telephone Encounter - Tran Velazquez LPN - 11/23/2019 10:22 AM EDT ----- Message from William Joseph MD sent at 11/21/2019 7:51 AM EDT ----- Vit b2 fine, lft ok. Lipids a little high, cont exercise, diet. I had wanted to start crestor to help lower in past, does he want to start now given lipids slightly high? Would be 10 mg daily. Watch out for muscle aches/pains, fatigue, cola colored urine, and call if develop. Labs 1 month if starts med, let me know. documented in this encounter Plan of Treatment Upcoming Encounters Date Type Specialty Care Team Description 02/03/2020 Office Visit Rheumatology Carlos Alberto Matthews MD [address] [place] [address] [phone] 02/11/2020 Office Visit Internal Medicine William Joseph MD [address] [facility] [place] [address] [phone] Health Maintenance Due Date Last Done Comments Zoster Vaccines (2 of 3) 03/07/2015 01/10/2015 FOBT ANNUALLY,AGES 18-90 03/22/2017 03/22/2016, 09/26 CKD PHOS USE SMARTSET 01031 10/23/2019 10/22/2018, 1 07/05/2015 CKD GFR USE SMARTSET 57785 05/19/202011/17, 11/11/2018, 10/22/2018, Additional history exists CKD HGB USE SMARTSET 00605 11/17/202011/17, 10/22/2018, 07/06/2016, Additional history exists DIABETES [...] Documents on File Type Date Recorded Patient Proof Coins Inspector Expl anation Advanced Directive Advanced Directive Advanced Directive Advanced Directive Advanced Directive Advanced Directive Advanced Directive Advanced Directive Advanced Directive
--- OUTSIDE RECORDS SUMMARY | 2023-01-29 05:09 | External Medical Summary | Summary of Care ---
Author Name Unknown Organization [place] [address] Care Team Providers Care Process Coordinator Name Role Phone William Joseph MD Primary Care Provider + Reason for Visit * Reason Onset Date Comments Medication Administration 03/15/2020 Flu an d/or Pneumo Inj Encounter Details Date Type Department Care Team Description 03/15/2020 Immunization/In jection Ancillary [facility] [address] [place] [address] [facility] [address] [place], [place] [id number] Need for prophylactic vaccination and inoculation against influenza* Allergies No Known Active Allergiesdocumented as of this encounter (statuses as of 03/15/2020) Medications Medication Sig Dispensed Refills Start Date [...] as of this encounter (statuses as of 03/15/2020) Active Problems Problem Noted Date Thyroid nodule [...] as of this encounter (statuses as of 03/15/2020) Resolved Problems Problem Noted Date Resolved Date History of rheumatoid arthritis 09/04/2017 08/20/2018 History of rheumatoid arthritis 01/06/2016 07/27/2016 Kidney disease, chronic, stage III (GFR 30-59 ml /min) 08/09/2014 07/30/2017 Overview: Per CKD protocol #1 HTN, goal below 140/90 8 Kidney disease, chronic, stage III (GFR 30-59 ml /min) 03/24/2012 documented as of this encounter (statuses as of 03/15/2020) Immunizations Name Administration Dates Next Due Pneumococcal [...] as of this encounter Progress Notes * Nava Zamora LPN - 03/15/2020 3:24 PM EDT PRE - ADMINISTRATION DOCUMENTATION Are you allergic to latex? No Are you experiencing any cold symptoms or fever? No Have you had Guillain-[place] Syndrome (an illness that causes paralysis) within the last 6 weeks? No Have you had the flu shot in the past? YES Have you ever had a reaction to the flu shot? No Nava Zamora LPN, 03/15/2020 3:24 PM Immunization Administration Documentation Time Out Procedure Performed: Yes Patient Identified (Ask Name/Date of ): Yes Does the patient have a fever greater than 101 degrees today? No Patient allergic to latex? No VFC Stock: No Injection(s) verified: Yes, Injection Name: Fluad Verified Side and Site: Yes Verified Shot(s) with Parent(s)/Patient: Yes documented in this encounter Plan of Treatment Upcoming Encounters Date Type Specialty Care Team Description 03/21/2020 Office Visit Internal Medicine Juan Carlos Barry PA-C [address] [place] [address] [phone] 05/25/2020 Office Visit Internal Medicine William Joseph MD [address] [place] [address] [phone] 08/03/2020 Office Visit Rheumatology Carlos Alberto Matthews MD [address] [place] [address] [phone] Health Maintenance Due Date Last Done Comments Zoster Vaccines (2 of 3) 03/07/2015 01/10/2015 FOBT ANNUALLY,AGES 18-90 03/22/2017 03/22/2016, 09/26 CKD PHOS USE SMARTSET 21076 10/23/2019 10/22/2018, 1 07/05/2015 CKD GFR USE SMARTSET 51714 05/19/202011/17, 11/11/2018, 10/22/2018, Additional history exists CKD HGB USE SMARTSET 34005 11/17/202011/17, 10/22/2018, 07/06/2016, Additional history exists DIABETES [...] as of this encounter Visit Diagnoses Diagnosis Need for prophylactic vaccination and inoculation against influenza- Primary documented in this encounter Advance Directives Documents on File Type Date Recorded Patient Solar Field Service Technician Expl anation Advanced Directive Advanced Directive Advanced Directive Advanced Directive Advanced Directive Advanced Directive Advanced Directive Advanced Directive Advanced Directive Advanced Directive Advanced Directive Advanced Directive Advanced Directive Advanced Directive Advanced Directive
--- OUTSIDE RECORDS SUMMARY | 2023-01-29 05:10 | External Medical Summary | Summary of Care ---
Author Name Unknown Organization [place] [address] Care Team Providers Care Candy Counter Clerk Name Role Phone William Joseph MD Primary Care Provider + Reason for Visit * Reason Comments Medication Pre-auth xeljanz Encounter Details Date Type Department Care Team Description 06/24/2019 Telephone Rheumatology [facility] [address] [place] [address] Carlos Alberto Matthews MD [address] [place] [address] Medication Pre-auth (xeljanz) Allergies No Known Allergiesdocumented as of this encounter (statuses as of 06/24/2019) Medications Medication Sig Dispensed Refills Start Date End Date Status benzonatate (TESSALON PERLES) 100 MG CapsuleIndications: Cough Take 1 Cap by mouth 2 times a day as needed for Cough. Do not cut, crush, or chew. 50 Cap 1 06/03/2018 Active amlodipine-benazepr il 5-20 mg per cap (LOTREL) 5-20 MG per capsuleIndications: 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) Take 1 Cap by mouth daily. 30 Cap 11 08/08/2018 Active vitamin b-12 (CYANOCOBALAMIN) 1000 MCG/ML injectionIndication s:Pernicious anemia Inject 1,000 mcg into a large muscle every 30 days. 1 mL 5 12/09/2018 Active Cholecalciferol (VITAMIN D-3) 1000 units Capsule Take 1 Cap by mouth daily. 0 12/17/2018 Active predniSONE (DELTASONE) 5 MG TabletIndications:H /O rheumatoid arthritis Take 1 Tab by mouth daily. 30 Tab 1 06/01/2019 Active fluticasone (FLOVENT HFA) 44 MCG/ACT inhalerIndications: Bronchiectasis (HCC) Inhale 1 Puff by mouth 2 times a day. 10.6 g 4 06/19/2019 Active Tofacitinib Citrate (XELJANZ) 5 MG TABSIndications:Rhe umatoid arthritis involving multiple sites with positive rheumatoid factor (HCC) Take 5 mg by mouth daily. Xeljanz AUTH # [id number] VALID DATES: 02/26/19-02/26 30 Tab 5 06/24/2019 Active Tofacitinib Citrate (XELJANZ) 5 MG TABSIndications:Rhe umatoid arthritis involving multiple sites with positive rheumatoid factor (HCC) Take 5 mg by mouth daily. Xeljanz AUTH # [id number] VALID DATES: 02/26/19-02/26 30 Tab 5 03/02/2019 06/24/2019 Discontinued (Refill) documented as of this encounter (statuses as of 06/24/2019) Active Problems Problem Noted Date Mixed hyperlipidemia 12/17/2018 Rheumatoid arthritis involvi ng [...] as of this encounter (statuses as of 06/24/2019) Resolved Problems Problem Noted Date Resolved Date History of rheumatoid arthritis 09/04/2017 08/20/2018 History of rheumatoid arthritis 01/06/2016 07/27/2016 Kidney disease, chronic, stage III (GFR 30-59 ml /min) 08/09/2014 07/30/2017 Overview: Per CKD protocol #1 HTN, goal below 140/90 8 Kidney disease, chronic, stage III (GFR 30-59 ml /min) 03/24/2012 documented as of this encounter (statuses as of 06/24/2019) Immunizations Name Administration Dates Next Due Pneumococcal [...] Encounter - Carlos Alberto Matthews MD - 06/24/2019 3:39 PM EST signed * Telephone Encounter - Aretha Ugarte LPN - 06/24/2019 3:26 PM EST Just send a new rx to them, his auth is still good AUTH # [id number] VALID DATES: 02/26/19-02/26/2021 Maybe they tried to call him and he didn't answer??? * Telephone Encounter - Carlos Alberto Matthews MD - 06/24/2019 1:55 PM EST xeljanz was approved last fall. Patient reports he never received xeljanz. It was sent to [facility] specialty pharmacy back in February 2019 documented in this encounter Plan of Treatment Upcoming Encounters Date Type Specialty Care Team Description 09/21/2019 Office Visit Internal Medicine William Joseph MD [address] [place] [address] [phone] 10/06/2019 Office Visit Rheumatology Carlos Alberto Matthews MD [address] [place] [address] [phone] Health Maintenance Due Date Last Done Comments Zoster Vaccines (2 of 3) 03/07/2015 01/10/2015 FOBT ANNUALLY,AGES 18-90 03/22/2017 03/22/2016, 09/26 CKD GFR USE SMARTSET 59706 05/13/201911/11, 10/22/2018, 05/04/2016, Additional history exists CKD HGB USE SMARTSET 12927 10/23/201910/22, 07/06/2016, 05/04/2016, Additional history exists CKD PHOS USE SMARTSET 51030 10/23/2019 10/22/2018, 1 07/05/2015 DIABETES SCREEN EVERY [...] rheumatoid factor (HCC) documented in this encounter Advance Directives Documents on File Type Date Recorded Patient Remote Medical Coder Expl anation Advanced Directive Advanced Directive Advanced Directive Advanced Directive Advanced Directive Advanced Directive Advanced Directive Advanced Directive
--- OUTSIDE RECORDS SUMMARY | 2023-01-29 05:10 | External Medical Summary | Summary of Care ---
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 Operator Helper Name Role Phone William Joseph MD Primary Care Provider + Reason for Visit * Reason Comments Rheum Follow Up 3 month RA return Encounter Details Date Type Department Care Team Description 02/26/2019 Office Visit Rheumatology [facility] [address] [place] [address] Harry Brooks MD [address] [place] [address] [phone] Rheumatoid arthritis involving multiple sites with positive rheumatoid factor (HCC)*; Generalized osteoarthritis; 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 10.6 g 4 05/07/2018 Active benzonatate (TESSALON PERLES) 100 MG CapsuleIndications:Co ugh Take 1 Cap by mouth 2 times a day as needed for Cough. Do not cut, crush, or chew. 50 Cap 1 06/03/2018 Active PredniSONE (DELTASONE) 5 MG TabletIndications:H/O rheumatoid arthritis Take 1 Tab by mouth daily. 30 Tab 1 06/05/2018 Active amlodipine-benazepril 5-20 mg per cap (LOTREL) 5-20 MG per capsuleIndications:Be nign hypertension 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) Take 1 Cap by mouth daily. 30 Cap 11 08/08/2018 Active vitamin b-12 (CYANOCOBALAMIN) 1000 MCG/ML injectionIndications: Pernicious anemia Inject 1,000 mcg into a large muscle every 30 days. 1 mL 5 12/09/2018 Active Cholecalciferol (VITAMIN D-3) 1000 units Capsule Take 1 Cap by mouth daily. 0 12/17/2018 Active saline (OCEAN NASAL SPRAY) 0.65 % nasal sprayIndications:Dry nose Administer 2 Sprays into each nostril as needed for Congestion. for nasal dryness or congestion 1 Bottle 5 12/17/2018 Active documented as of this encounter (statuses as of 02/26/2019) Active Problems Problem Noted Date Mixed hyperlipidemia [...] as of this encounter (statuses as of 02/26/2019) Resolved Problems Problem Noted Date Resolved Date History of rheumatoid arthritis 09/04/2017 08/20/2018 History of rheumatoid arthritis 01/06/2016 07/27/2016 Kidney disease, chronic, stage III (GFR 30-59 ml /min) 08/09/2014 07/30/2017 Overview: Per CKD protocol #1 HTN, goal below 140/90 8 Kidney disease, chronic, stage III (GFR 30-59 ml /min) 03/24/2012 documented as of this encounter (statuses as of 02/26/2019) Immunizations Name Administration Dates Next Due Pneumococcal Conjugate Vacc, 13 Valent (Prevnar) 07/13/2015 Pneumococcal Polysaccharide PPV23 (Pneumovax) 06/08/2013,03/19/2013(Deferred: Patient Refused - not interested) Seasonal Influenza, Quadriva lent, No Preserve, 6 Mons & Above, IM 05/22/2018 Seasonal Influenza, Quadriva lent, No Preserve, IM 05/04/2016 Seasonal Influenza, Trivalen t, with Preserve, 3yr [...] Mixed drink(s) containing 1.5 shots of alcohol 3.5 occas sional Food Insecurity Answer Date Recorded [...] Sign Reading Time Taken Comments Blood Pressure 136/86 02/26/2019 10:23 AM EDT Pulse - - Temperature 36.2 C (97.1 F) 02/26/2019 10:23 AM E DT Respiratory Rate - - Oxygen Saturation - - Inhaled Oxygen Concentration - - Weight 78.9 kg (174 lb) 02/26/2019 10:23 AM EDT Height - - Body Mass Index 27.25 12/17/2018 2:11 PM EDT documented in this encounter Progress Notes * Harry Brooks MD - 02/26/2019 11:09 AM EDT Progress Notes Today's Visit Note 02/26/2019 Harry Brooks MD Assessment Diagnosis Comment (M05.79) Rheumatoid arthritis involving multiple sites with positive rheumatoid factor (HCC) (primary encounter diagnosis) (M15.9) Generalized osteoarthritis (I12.9, N18.3) 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) (J47.9) Bronchiectasis without complication (HCC) (Z51.81) Encounter for therapeutic drug monitoring Comment He is having increasing rheumatoid arthritis symptoms off leflunomide. Cannot tolerate methotrexate or leflunomide at this point. Had lengthy discussion will look into coverage for Xeljanz for his active rheumatoid arthritis. Plan 1. Check hepatitis studies-slips given to him 2. Will look into coverage for Xeljanz 5 mg daily given his CKD stage 3 - if insurance once other agent such as Humira/Enbrel will look into coverage for those 3. Will contact once biologic therapy is approved 4. Return to clinic in 3 months or sooner pending course History "Mr. Garcia is a 73 year old man last seen in Rheumatology today (02-26-19). He has h/o Mixed hyperlipidemia, 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), Bronchiectasis (HCC), Pernicious anemia, Bunion, left foot, Generalized osteoarthritis, and Primary osteoarthritis of right hip, due for eval of Rheumatoid arthritis involving multiple sites with positive rheumatoid factor (HCC)." Temporary History he reports that since last visit he noted GI issues - diarrhea and stopped arava and they improved.he restarted in the last month and again the GI issues came back so he stopped it 2 weeks ago. he is starting to note increaing symptoms in his hands at this point. Arava really helped but he just cant tolerate it. he has his chornic cough but no SOB. did a lot of bicycle riding with no issues. He is noting some swelling across his MCPs. He is wondering about biologic therapy at this point. We discussed this in past. He would like to try Xeljanz. Permanent History diagnosed with RA in 2001 but now burnt out, off DMARD therapy Events Since Last Visit Event Y/N Comment Med Side Effect Yes GI Issues from arava Condition Summary Date Description 12/31/2018 NEPHROLOGY [facility] with Dr. 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 (Actinic keratosis) 12/17/2018 [facility]. Joseph (Benign hypertension with CKD (chronickidney disease) stage III (HCC)) 10/08/2018 RHEUMATOLOGY [facility] with Dr. Brooks (Rheumatoid arthritis involving multiple sites with positive rheumatoid factor (HCC)) Review of Systems (ROS) ROS Symptoms General None HEENT None MS/Neuro None Skin None Cardiopulmonary Chronic cough Gastrointestinal Diarrhea Genitourinary None Medications Rheumatology Meds Other Meds PREDNISONE 5 MG Take 1 Tab by mouth daily. AMLODIPINE BESY-BENAZEPRIL HCL 5-20 MG PO CAPS Take 1 Cap by mouth daily. BENZONATATE 100 MG PO CAPS Take 1 Cap by mouth 2 times a day as needed for Cough. Do not cut, crush, or chew. CYANOCOBALAMIN 1000 MCG/ML IJ SOLN Inject 1,000 mcg into a large muscle every 30 days. FLUTICASONE PROPIONATE HFA 44 MCG/ACT IN AERO Inhale 1 Puff by mouth 2 times a day. SALINE NASAL SPRAY 0.65 % NA SOLN Administer 2 Sprays into each nostril as needed for Congestion. for nasal dryness or congestion VITAMIN D-3 1000 UNITS PO CAPS Take 1 Cap by mouth daily. 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 Vital Signs Vital Value Temp 97.1 F BP 136/86 Pulse Weight 174 Height BMI 27.25 Physical Exam System Findings General alert, well developed, well nourished, in no acute distress Skin normal color and texture, no rashes or significant lesions Musculoskeletal Trace synovitis across the MCPs 2 through 5 both hands with tenderness Eyes PERRLA, conjunctiva pink and non-injected, sclera clear HENT normocephalic, atraumatic, normal nasal and oropharyngeal mucosa Heart regular rate and rhythm, no murmurs or rubs Lungs Some coarse breath sounds throughout with expiratory wheezing noted at the bases Abdomen soft, normal bowel sounds, no masses or organomegaly Monitoring Labs Measure Today Previous HGB g/dl 15.2 10/27/2018 eGFR mL/min/1.73 M2 51 11/13/2018 ALT U/L 18 11/13/2018 Outcome Measures Measure Today Previous MDHAQ 0.67 02/26/2019 1.00 10/08/2018 Pain 3 02/26/2019 3 10/08/2018 Fatigue 0 02/26/2019 2 10/08/2018 Stiffness 0 02/26/2019 0 10/08/2018 Patient Global 8 02/26/2019 3 10/08/2018 Rapid3 11.67 02/26/2019 7.00 10/08/2018 Tender Score 8 02/26/2019 1 10/08/2018 Swollen Score 8 02/26/2019 1 10/08/2018 Physician Global Score 3 02/26/2019 2 10/08/2018 Patient Global Score 8 02/26/2019 3 10/08/2018 CDAI 27 02/26/2019 7 10/08/2018 Care Gaps As Of 02/26/2019 Physician open RA on DMARD RA, Not [...] - Provider Goal Measure Current Target CDAI 27 10 Opportunity No changes required The patient does not have enough data on file or a decision was made at a prior visit. Signature HARRY BROOKS documented in this encounter Nursing Notes * Josi Romo LPN - 02/26/2019 10:24 AM EDT Chief Complaint Patient presents with Rheum Follow Up 3 month RA return documented in this encounter Plan of Treatment Upcoming Encounters Date Type Specialty Care Team Description 03/24/2019 Office Visit Internal Medicine William Joseph MD [address] [place] [address] 05/11/2019 Office Visit Nephrology Lisbeth Ward MD [address] [place] [address] [phone] 06/24/2019 Office Visit Rheumatology Harry Brooks MD [address] [place] [address] [phone] Scheduled Orders Name Type Priority Associated Diagnoses Orde r Schedule HEP B CORE AB G+M Lab Routine Rheumatoid arthritis involving multiple sites with positive rheumatoid factor (HCC) Encounter for therapeutic drug monitoring Ordered: 02/26/2019 HEPATITIS C ANTIBODY Lab Routine Rheumatoid arthritis involving multiple sites with positive rheumatoid factor (HCC) Encounter for therapeutic drug monitoring Ordered: 02/26/2019 HEP B SURFACE ANTIGEN Lab Routine Rheumatoid arthritis involving multiple sites with positive rheumatoid factor (HCC) Encounter for therapeutic drug monitoring Ordered: 02/26/2019 Health Maintenance Due Date Last Done Comments FOBT ANNUALLY,AGES 18-90 03/22/2017 03/22/2016, 09/26 Influenza Vaccine (FLU shot) (#1) 2019 05/22/2018, 06/05/2017, 05/04/2016, Additional history exists CKD GFR USE SMARTSET 50735 05/13/201911/11, 10/22/2018, 05/04/2016, Additional history exists CKD HGB USE SMARTSET 91860 10/23/201910/22, 07/06/2016, 05/04/2016, Additional history exists CKD PHOS USE SMARTSET 70030 10/23/2019 10/22/2018, 1 07/05/2015 DIABETES SCREEN EVERY 3 YRS-AGE 45 AND ABOVE 11/11/2021 11/11/2018, 10/22/2018, 05/04/2016, Additional history exists DTaP,Tdap,and Td Vaccines (2 - Td) 01/10/2025 01/10/2015 Pneumococcal Vaccine: 65+ Years Completed 07/13/2015, 06/08/2013 MENINGOCOCCAL (MENACTRA) Aged Out No longer eligible based on patient's age to complete this topic documented as of this encounter Implants Not on filedocumented as of this encounter Visit Diagnoses Diagnosis Rheumatoid arthritis involving multiple sites with positive rheumatoid factor (HCC)- Primary Generalized osteoarthritis Generalized osteoarthrosis, unspecified site 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
--- OUTSIDE RECORDS SUMMARY | 2023-01-29 05:10 | External Medical Summary | Summary of Care ---
Author Name Unknown Organization [place] [address] Care Team Providers Care Receivables Specialist Name Role Phone William Joseph MD Primary Care Provider + Reason for Visit * Reason Comments Medication Pre-auth xeljanz Medication Problem Encounter Details Date Type Department Care Team Description 06/24/2019 Telephone Rheumatology [facility] [address] [place] [address] Carlos Alberto Matthews MD [address] [place] [address] Medication Pre-auth (xeljanz); Medication ... Allergies No Known Allergiesdocumented as of this encounter (statuses as of 07/14/2019) Medications Medication Sig Dispensed Refills Start Date [...] mg by mouth daily. Xeljanz AUTH # [id number] VALID DATES: 02/26/19-02/26 30 Tab 5 06/24/2019 Active Tofacitinib Citrate (XELJANZ) 5 MG TABSIndications:Rhe umatoid arthritis involving multiple sites with positive rheumatoid factor (HCC) Take 5 mg by mouth daily. Xeljanz AUTH # [id number] VALID DATES: 02/26/19-02/26 30 Tab 5 03/02/2019 06/24/2019 Discontinued (Refill) documented as of this encounter (statuses as of 07/14/2019) Active Problems Problem Noted Date Mixed hyperlipidemia [...] as of this encounter (statuses as of 07/14/2019) Resolved Problems Problem Noted Date Resolved Date History of rheumatoid arthritis 09/04/2017 08/20/2018 History of rheumatoid arthritis 01/06/2016 07/27/2016 Kidney disease, chronic, stage III (GFR 30-59 ml /min) 08/09/2014 07/30/2017 Overview: Per CKD protocol #1 HTN, goal below 140/90 8 Kidney disease, chronic, stage III (GFR 30-59 ml /min) 03/24/2012 documented as of this encounter (statuses as of 07/14/2019) Immunizations Name Administration Dates Next Due Pneumococcal [...] encounter Miscellaneous Notes * Telephone Encounter - Ronda Cisneros, heavy equipment mechanic - 07/14/2019 4:14 PM EST [facility] calling regarding Pt's Tofacitinib Citrate (XELJANZ) 5 MG TABS script The Rep stated the medication in stock comes in a 60 tab bottle. They are unable to separate 30 Tabs from a bottle. The Rep is requesting a new script with a Qty of 60 Tabs for the full bottle. Any questions please contact [facility] at [phone] If provider agreeable please e-scribe new script to the pharmacy E [facility] [address] Thank You, Ronda Cisneros Hose Handler Refill Call Center 07/14/2019, 4:16 PM * Telephone Encounter - Carlos Alberto Matthews MD - 06/24/2019 3:39 PM EST signed * Telephone Encounter - Aretha Ugarte LPN - 06/24/2019 3:26 PM EST Just send a new rx to them, his auth is still good AUTH # [id number] VALID DATES: 02/26/19-02/26/2021 Maybe they tried to call him and he didn't answer??? * Telephone Encounter - Carlos Alberto Matthews MD - 06/24/2019 1:55 PM EST xeljanz was approved last fall. Patient reports he never received xeljanz. It was sent to [facility] pharmacy back in February 2019 documented in this encounter Plan of Treatment Upcoming Encounters Date Type Specialty Care Team Description 09/21/2019 Office Visit Internal Medicine William Joseph MD [address] [facility] [place] [address] [phone] 10/06/2019 Office Visit Rheumatology Carlos Alberto Matthews MD [address] [facility] [place] [address] [phone] Health Maintenance Due Date Last Done Comments Zoster Vaccines (2 of 3) 03/07/2015 01/10/2015 FOBT ANNUALLY,AGES 18-90 03/22/2017 03/22/2016, 09/26 CKD GFR USE SMARTSET 25976 05/13/201911/11, 10/22/2018, 05/04/2016, Additional history exists CKD HGB USE SMARTSET 59568 10/23/201910/22, 07/06/2016, 05/04/2016, Additional history exists CKD PHOS USE SMARTSET 39605 10/23/2019 10/22/2018, 1 07/05/2015 DIABETES SCREEN EVERY [...] on File Type Date Recorded Patient Manager Oracle Retail Expl anation Advanced Directive Advanced Directive Advanced Directive Advanced Directive Advanced Directive Advanced Directive Advanced Directive Advanced Directive
--- OUTSIDE RECORDS SUMMARY | 2023-01-29 05:10 | External Medical Summary | Summary of Care ---
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 Name Role Phone William Chavez MD Primary Care Provider + Reason for Visit * Reason Comments NEW PATIENT * Evaluate & Treat - Unlimited Visits (Within 10 days (routine)) Status Reason Specialty Diagnoses / Procedures Referred By Contact Referred To Contact Pending Review Specialty Services Required Nephrology Diagnoses Kidney disease, chronic, stage III (GFR 30-59 ml/min) ([facility]) William Chavez MD [address] [place] [id number] Encounter Details Date Type Department Care Team Description 12/31/2018 Office Visit Nephrology, [facility] [address] [place] [address] Lisbeth Ward MD [address] [place] [address] [phone] Benign hypertension with CKD (chronic kidney disease) stage III ([facility])*; HTN, goal below 130/80; Edema, unspecified type; Secondary hyperparathyroidism ([facility]); Other proteinuria Allergies No Known Allergiesdocumented as of this encounter (statuses as of 01/04/2019) Medications Medication Sig Dispensed Refills Start Date [...] as of this encounter (statuses as of 01/04/2019) Active Problems Problem Noted Date Mixed hyperlipidemia [...] as of this encounter (statuses as of 01/04/2019) Resolved Problems Problem Noted Date Resolved Date History of rheumatoid arthritis 09/04/2017 08/20/2018 History of rheumatoid arthritis 01/06/2016 07/27/2016 Kidney disease, chronic, stage III (GFR 30-59 ml /min) 08/09/2014 07/30/2017 Overview: Per CKD protocol #1 HTN, goal below 140/90 8 Kidney disease, chronic, stage III (GFR 30-59 ml /min) 03/24/2012 documented as of this encounter (statuses as of 01/04/2019) Immunizations Name Administration Dates Next Due Pneumococcal [...] Sign Reading Time Taken Comments Blood Pressure 140/78 12/31/2018 3:53 PM EDT Pulse 72 12/31/2018 3:53 PM EDT Temperature 36.6 C (97.8 F) 12/31/2018 2:30 PM ED T Respiratory Rate 18 12/31/2018 2:30 PM EDT Oxygen Saturation - - Inhaled Oxygen Concentration - - Weight 79.2 kg (174 lb 9.6 oz) 12/31/2018 2:30 P M EDT Height - - Body Mass Index 27.35 12/17/2018 2:11 PM EDT documented in this encounter Patient Instructions * Patient Instructions* Lisbeth Ward MD - 12/31/2018 3:44 PM EDT -check urine test at your convenience -no change to medications for now but will be looking to change BP meds based on labs, imaging, BP trends -send me an email w/ home bp and heart rate trends over about 10-14 days -avoid medicines like aleve, advil, ibuprofen, aspirin more than 81 mg daily and other NSAIDS whichare not good for kidney patients. Take only tylenol (acetaminophen) up to 2000 mg daily as needed for pain or as directed by your primary care provider. -get follow up imaging of thoracic aortic aneurysm -consider compression socks 15-20 mm Hg for swelling -next kidney labs in April, sooner if med or other clinical issues documented in this encounter Progress Notes * Lisbeth Ward MD - 12/31/2018 2:42 PM EDT NEPHROLOGY CLINIC NOTE [facility], [place] [address] 12/31/2018, 2:42 PM Patient Name: Ignacio Garcia Ignacio Garcia is a 73 year old male being seen in consultation today in Nephrology clinic, at the request of William Chavez MD for CKD3. Past Medical History: Diagnosis Date Bronchiectasis (HCC) 12/08/2013 Encounter for long-term (current) use of other medications 07/27/2010 History of rheumatoid arthritis 01/06/2016 HTN, goal below 140/90 Pernicious anemia 08/24/2010 Patient Active Problem List Diagnosis Code Encounter for therapeutic drug monitoring Z51.81 Pernicious anemia D51.0 Bronchiectasis (HCC) J47.9 Thoracic aortic aneurysm (HCC) I71.2 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) I12.9, N18.3 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 Bunion, left foot M21.612 Primary osteoarthritis of right hip M16.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 (HCC) M05.79 Mixed hyperlipidemia E78.2 HPI: 73 year old male whom I'm asked to see for CKD 3. PMH includes HTN since late 1999s and evaluated for urgency at time of dx, per rheum "burnt out" RA on intermittent prendisone, OA, pernicious anemia, HL, thoracic aortic aneurysm, bronchiectasis on inhalers, thyroid nodules. Checks bp at home w/ upper arm and similar to readings here. Checks most days. Recently stopped bp meds a few mos backafter lengthy GI diarrheal illness; lost wt and stopped. Did not see GI for this. Settled on own. Then about 2 wks ago he resumed bp meds b/c noted on home readings it was coming up. Home bp -723o systolic, HR 70s. Last hospitalization was for HTN. Past hx of heavy NSAID use in early ; then stopped. Has been on lotrel for 10 years; was off for 2 mos w/ GI illness and noted less edema. No FH of CKD/ESRD; no hx of stones. REVIEW OF SYSTEMS: No F/C, unintended wt loss but working at wt maintinence, energy level and appetite acceptable No acute visual changes or RODRIGES No dental, throat pain; + sinus issues / sinus infections x mos w/ diarrhea and even before this (also clear); +rhinorrhea No neck lumps/bumps or stiffness No palpitations, angina, orthopnea; chronic dependent ankle BL LE edema No cough, wheeze, or dyspnea No N/V/D/C/abd pain; no heartburn No dysuria, hematuria, nocturia 2-3 times worsening over past years; no new or worrisome voiding symptoms No rash or generalized itch; chronic derm issues follows w/ derm chronic joint/muscle aches > including feet, fingers, ankles, knees/ hips wrists when flaring No inappropriate bleeding; + easy bruising No tremor, seizures, focal or global weakness or paresthesias All other systems were reviewed and were negative. Current Outpatient Medications Medication Sig Dispense Refill Cholecalciferol (VITAMIN D-3) 1000 units Capsule Take 1 Cap by mouth daily. saline (OCEAN NASAL SPRAY) 0.65 % nasal spray Administer 2 Sprays into each nostril as needed for Congestion. for nasal dryness or congestion 1 Bottle 5 vitamin b-12 (CYANOCOBALAMIN) 1000 MCG/ML injection Inject 1,000 mcg into a large muscle every 30 days. 1 mL 5 amlodipine-benazepril 5-20 mg per cap (LOTREL) 5-20 MG per capsule Take 1 Cap by mouth daily. 30 Cap 11 PredniSONE (DELTASONE) 5 MG Tablet Take 1 Tab by mouth daily. 30 Tab 1 benzonatate (TESSALON PERLES) 100 MG Capsule Take 1 Cap by mouth 2 times a day as needed for Cough. Do not cut, crush, or chew. 50 Cap 1 fluticasone (FLOVENT HFA) 44 MCG/ACT inhaler Inhale 1 Puff by mouth 2 times a day. 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 Employer: [employer] Social Needs Financial resource strain: Not on file Food insecurity: Worry: Never true Inability: Never true Transportation needs: Medical: Not on file Non-medical: Not on file Tobacco Use Smoking status: Former Smoker Packs/day: 2.00 Years: 35.00 Pack years: 70.00 Types: Cigarettes Last attempt to quit: 06/25/1990 Years since quittin.5 Smokeless tobacco: Never Used Substance and Sexual Activity Alcohol use: Yes Alcohol/week: 3.5 oz Types: 7 Mixed drink(s) containing 1.5 shots of alcohol per week Comment: occassional Drug use: No Sexual activity: Yes Partners: Male Lifestyle Physical activity: Days per week: Not on file Minutes per session: Not on file Stress: Not on file Relationships Social connections: Talks on phone: Not on file Gets together: Not on file Attends christian service: Not on file Active member of club or organization: Not on file Attends meetings of clubs or organizations: Not on file Relationship status: Not on file Intimate partner violence: Fear of current or ex partner: Not [...] Asked Social History Narrative Not on file Family History Problem Relation Age of Onset Other (osteoarthritis [Other]) Mother Hypertension Mother Family Status Relation Status Mo at age 87 Fa at age 92 Son Alive Sis Alive Son Alive Son Alive PHYSICAL EXAMINATION: BP Readings from Last 6 Encounters: 12/31/18 140/78 12/17/18 130/76 10/10/18 120/64 10/08/18 142/84 08/20/18 146/78 07/14/18 140/80 Wt Readings from Last 6 Encounters: 12/31/18 79.2 kg (174 lb 9.6 oz) 12/17/18 79.5 kg (175 lb 3.2 oz) 10/10/18 79.9 kg (176 lb 3.2 oz) 10/08/18 80.3 kg (177 lb) 08/20/18 84.8 kg (187 lb) 07/14/18 83.5 kg (184 lb) Pulse Readings from Last 6 Encounters: 12/31/18 72 12/17/18 72 10/10/18 85 08/20/18 72 07/30/17 68 01/29/17 76 NAD, oriented x 3, ambulatory and w/o asst, on table w/ care Normocephalic, atraumatic, eomi nonicteric sclerae MMM Supple neck w/o lad thyroid nodule or enlargement RRR w/o m/g/r; 2+ BL ankle and pedal edema Diffuse crackles/ rhonchi; insp wheezes/diminished air mvt post/ant abarca NT abd, +BS, soft No CVA TTP, no diaper or joyner 2+ radial and carotid pulses BL w/o carotid bruit No cyanosis or clubbing No rash No tremor, focal or global weakness; fluent speech good hx LABS: NEPH-FLOW Latest Ref Rng & Units 06/24/2013 01/01/2014 01/01/2014 Bun 6 - 20 mg/dL 17 20 20 Cr 0.6 - 1.2 mg/dL 1.0 1.3 1.3 eGFR >60 mL/min >60.0 eGFR >60 57.4 (L) 57.4 (L) K 3.5 - 5.1 mmol/L 4.2 4.0 4.0 Hb 14.0 - 16.8 g/dL 15.5 16.3 Microalb/cr ratio <30 mg/g creat 56 (H) NEPH-FLOW Latest Ref Rng & Units 06/11/2014 05/04/2016 07/06/2016 Bun 6 - 20 mg/dL 19 23 (H) Cr 0.6 - 1.2 mg/dL 1.2 1.3 (H) eGFR >60 mL/min eGFR >60 58.5 (L) 54.5 (L) K 3.5 - 5.1 mmol/L 4.4 4.6 Hb 14.0 - 16.8 g/dL 16.9 (H) 16.1 Microalb/cr ratio <30 mg/g creat NEPH-FLOW Latest Ref Rng & Units 08/03/2016 Bun 6 - 20 mg/dL Cr 0.6 - 1.2 mg/dL eGFR >60 mL/min eGFR >60 K 3.5 - 5.1 mmol/L Hb 14.0 - 16.8 g/dL Microalb/cr ratio <30 mg/g creat 92 (H) Results for IGNACIO GARCIA I ( ) as of 12/31/2018 14:42 Ref. Range 01/01/2014 11:31 06/11/2014 14:22 05/04/2016 12:09 10/22/2018 00:00 11/11/2018 00:00 BUN Latest Ref Range: 6 - 20 mg/dL 20 19 23 (H) CREATININE Latest Ref Range: 0.6 - 1.2 mg/dL 1.3 1.2 1.3 (H) CREATININE-OUTSIDE LAB Latest Ref Range: 0.70 - 1.18 MG/DL 1.34 (A) 1.35 (A) E GLOM FILT RATE Latest Ref Range: >60 57.4 (L) 58.5 (L) 54.5 (L) SODIUM Latest Ref Range: 135 - 146 mmol/L 140 145 140 POTASSIUM Latest Ref Range: 3.5 - 5.1 mmol/L 4.0 4.4 4.6 POTASSIUM-OUTSIDE LAB Latest Ref Range: 3.5 - 5.3 MMOL/L 4.6 4.4 CHLORIDE Latest Ref Range: 98 - 107 mmol/L 104 105 104 CO2 Latest Ref Range: 22 - 32 mmol/L 27 27 27 GLUCOSE Latest Ref Range: 70 - 120 mg/dL 91 118 97 GLUCOSE-OUTSIDE LAB Latest Ref Range: 65 - 99 MG/DL 90 90 CALCIUM Latest Ref Range: 8.4 - 10.2 mg/dL 9.1 9.5 9.5 PHOSPHORUS-OUTSIDE LAB Latest Ref Range: 2.1 - 4.3 MG/DL 3.0 ANION GAP Latest Ref Range: 7 - 15 mmol/L 9 13 9 PHOSPHORUS Latest Ref Range: 2.5 - 4.8 mg/dL 3.1 GFR ESTIMATED-OUTSIDE LAB Latest Ref Range: >=60 ML/MIN 51 (A) 51 (L) ALBUMIN Latest Ref Range: 3.8 - 5.0 g/dL 3.8 3.9 3.8 ALKALINE PHOSPHATASE Latest Ref Range: 0 - 153 U/L 69 69 61 ALT Latest Ref Range: 10 - 50 U/L 10 13 10 ALT-OUTSIDE LAB Latest Ref Range: 9 - 46 U/L 15 18 AST Latest Ref Range: 10 - 50 U/L 23 21 23 BILIRUBIN Latest Ref Range: 0 - 1.2 mg/dL 0.6 0.4 0.5 BILIRUBIN, DIRECT Latest Ref Range: 0.0 - 0.3 mg/dL <0.2 PROTEIN Latest Ref Range: 6.0 - 8.3 g/dL 7.1 7.8 7.3 PSA SCREENING Latest Ref Range: <4.1 ng/mL 2.28 1.99 PSA-OUTSIDE LAB Latest Ref Range: <=4.0 NG/ML 3.0 PTH 2015 54 Results for IGNACIO GARCIA I ( ) as of 01/04/2019 17:01 Ref. Range 01/01/2014 11:28 05/04/2016 12:14 08/03/2016 13:51 COLOR, UA Latest Ref Range: YEL STRAW (A) CLARITY, UA Latest Ref Range: CLEAR CLEAR GLUCOSE, UA Latest Ref Range: NEG mg/dL NEGATIVE BILIRUBIN, UA Latest Ref Range: NEG NEGATIVE KETONE, UA Latest Ref Range: NEG mg/dL NEGATIVE SPECIFIC GRAVITY Latest Ref Range: 1.003 - 1.030 1.020 BLOOD, UA Latest Ref Range: NEG NEGATIVE PH, UA Latest Ref Range: 5.0 - 7.5 units 6.0 PROTEIN, UA Latest Ref Range: NEG mg/dL TRACE (A) UROBILINOGEN, UA Latest Ref Range: NORM mg/dL NORMAL NITRITE, UA Latest Ref Range: NEG NEGATIVE ESTERASE, UA Latest Ref Range: NEG NEGATIVE BACTERIA, UA Latest Ref Range: NONE /HPF NONE WBC, UA Latest Ref Range: U02 /HPF 0-2 RBC, UA Latest Ref Range: U02 /HPF 0-2 ALBUMIN, RD URINE Latest Units: mg/dL 6.70 (H) 8.64 CREATININE, RD URINE Latest Units: mg/dL 120 94 MICROALBUMIN RATIO Latest Ref Range: <30 mg/g creat 56 (H) 92 (H) PERTINENT IMAGING INFO: Renal u/s 10/201811/03/2018 2:46 pmUS RENAL HISTORY worsening gfr TECHNIQUE Real-time static sonographic images were obtained. COMPARISON Chest CT June 15, 2013 FINDINGS Right Kidney: Normal size and echotexture measuring 12.2 x 5.0 x 4.9 cm. Multiple cysts, the largest within the medial midpole measuring 67 x 69 x 64 mm. Lateral calcification, vascular versus nonobstructing nephrolithiasis measuring 7 mm. Left Kidney: Normal size and echotexture measuring 11.5 x 5.2 x 4.3 cm. Multiple probable cysts, the largest within the medial midpole measuring 25 x 17 x 26 mm. Superior pole calcification measuring 5 mm. Bladder: Not evaluated due to underdistention. Aorta: Visualized portions are normal in caliber. Proximal aorta is obscured due to overlying bowel gas. Impression IMPRESSION 1. Bilateral renal cysts. 2. No hydronephrosis. 3. Bilateral renal calcifications, nephrolithiasis versus vascular. CT chest 05/2013 1. Emphysematous changes and left upper lobe pleural-based bulla. 2. Bilateral bronchiectasis most pronounced at the lung bases. 3. Tree-in-bud densities at lung bases, could be related to bronchiolitis. This pattern also seen with tuberculosis, fungal and viral infections. 4. Ascending thoracic aorta measures 3.9 cm in maximum AP diameter. 5. Enlarged heterogeneous density of right thyroid lobe. Recommend assessment with ultrasound. 6. Bilateral simple renal cysts. ASSESSMENT AND PLAN: 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) (Primary) - PROT/CREAT UR RATIO - ROUTINE URINALYSIS HTN, goal below 130/80 - PROT/CREAT UR RATIO - ROUTINE URINALYSIS Edema, unspecified type - PROT/CREAT UR RATIO - ROUTINE URINALYSIS Secondary hyperparathyroidism (HCC) Other proteinuria - PROT/CREAT UR RATIO - ROUTINE URINALYSIS CKD3A w/ no recent protreinuria assessments but past albuminuria in 50-100 range. CKD likely from age, long standing past nsaid use, HTN. Evaluate for modifiable risk ff. Probably low ESRD risk but more data needed. -check urine test at your convenience -no change to medications for now but will be looking to change BP meds based on labs, imaging, BP trends -send me an email w/ home bp and heart rate trends over about 10-14 days -avoid medicines like aleve, advil, ibuprofen, aspirin more than 81 mg daily and other NSAIDS whichare not good for kidney patients. Take only tylenol (acetaminophen) up to 2000 mg daily as needed for pain or as directed by your primary care provider. -get follow up imaging of thoracic aortic aneurysm -consider compression socks 15-20 mm Hg for swelling -next kidney labs in April, sooner if med or other clinical issues Follow-up: Return in about 4 months (around 05/02/2019). | Check-out note: Parveen/ md Lisbeth Ward MD CC: Ref: WILLIAM CHAVEZ[[id number]] [address] [place] [address] (office) [phone] (fax) PCP: WILLIAM CHAVEZ [address] [facility] [place] [address] [phone] This chart was completed in part utilizing [employer] Speech Voice Recognition Software. Randomword insertions, pronoun errors, and incomplete sentences are an occasional consequence of this system due to software limitations, and ambient noise. Any questions or concerns about the content, text, or information contained within the body of this dictation should be directly addressed to the provider for clarification. documented in this encounter Nursing Notes * Raegan Stephens LPN - 12/31/2018 2:27 PM EDT Chief Complaint Patient presents with NEW PATIENT referred by PCP for CKD, no diabetes, medicated for HTN for at least 10 years. documented in this encounter Plan of Treatment Upcoming Encounters Date Type Specialty Care Team Description 02/04/2019 Office Visit Rheumatology Carlos Alberto Matthews MD [address] [place] [address] [phone] 03/24/2019 Office Visit Internal Medicine William Chavez MD [address] [place] [address] [phone] 05/11/2019 Office Visit Nephrology Lisbeth Ward MD [address] [place] [address] Scheduled Orders Name Type Priority Associated Diagnoses Orde r Schedule PROT/CREAT UR RATIO Lab Routine 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) HTN, goal below 130/80 Edema, unspecified type Other proteinuria Ordered: 12/31/2018 ROUTINE URINALYSIS Lab Routine 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) HTN, goal below 130/80 Edema, unspecified type Other proteinuria Ordered: 12/31/2018 Health Maintenance Due Date Last Done Comments FOBT ANNUALLY,AGES 18-90 03/22/2017 03/22/2016, 09/26 Influenza Vaccine (FLU shot) (#1) 2019 05/22/2018, 06/05/2017, 05/04/2016, Additional history exists CKD GFR USE SMARTSET 43768 05/13/201911/11, 10/22/2018, 05/04/2016, Additional history exists CKD HGB USE SMARTSET 73511 10/23/201910/22, 07/06/2016, 05/04/2016, Additional history exists CKD PHOS USE SMARTSET 30044 10/23/2019 10/22/2018, 1 07/05/2015 DIABETES SCREEN EVERY 3 YRS-AGE 45 AND ABOVE 11/11/2021 11/11/2018, 10/22/2018, 05/04/2016, Additional history exists DTaP,Tdap,and Td Vaccines (2 - Td) 01/10/2025 01/10/2015 PNEUMOCOCCAL ADULT 65 YRS AND OVER Completed 07/13/2015, 06/08/2013 MENINGOCOCCAL (MENACTRA) Aged Out No longer eligible based on patient's age to complete this topic documented as of this encounter Implants Not on filedocumented as of this encounter Visit Diagnoses Diagnosis 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)- Primary Benign hypertensive kidney disease with chronic kidney disease stage I through stage IV, or unspecified HTN, goal below 130/80 Unspecified essential hypertension Edema, unspecified type Secondary hyperparathyroidism (HCC) Secondary hyperparathyroidism (of renal origin) Other proteinuria documented in this encounter Advance Directives Documents on File Type Date Recorded 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
--- OUTSIDE RECORDS SUMMARY | 2023-01-29 05:10 | External Medical Summary | Summary of Care ---
Author Name Unknown Organization [facility] [place] [address] Care Team Providers Care Registered Nurse Maternal Child Name Role Phone William Chavez MD Primary Care Provider + Reason for Visit * Reason Comments Follow Up Two raised lesions o n top of head, one was tx with cryo but did not go away. Also skin tag left nasal passage. Encounter Details Date Type Department Care Team Description 12/25/2018 Office Visit Dermatology [facility] [address] [place] [address] Lisbeth Dinh MD [address] [place] [address] [phone] Actinic keratosis*; Seborrheic keratosis; Fibrous papule of nose Allergies No Known Allergiesdocumented as of this encounter (statuses as of 12/25/2018) Medications Medication Sig Dispensed Refills Start Date [...] as of this encounter (statuses as of 12/25/2018) Active Problems Problem Noted Date Mixed hyperlipidemia [...] as of this encounter (statuses as of 12/25/2018) Resolved Problems Problem Noted Date Resolved Date History of rheumatoid arthritis 09/04/2017 08/20/2018 History of rheumatoid arthritis 01/06/2016 07/27/2016 Kidney disease, chronic, stage III (GFR 30-59 ml /min) 08/09/2014 07/30/2017 Overview: Per CKD protocol #1 HTN, goal below 140/90 8 Kidney disease, chronic, stage III (GFR 30-59 ml /min) 03/24/2012 documented as of this encounter (statuses as of 12/25/2018) Immunizations Name Administration Dates Next Due Pneumococcal [...] Travel End documented as of this encounter Patient Instructions * Patient Instructions* Lisbeth Dinh MD - 12/25/2018 10:19 AM EDT WHAT TO EXPECT FOLLOWING CRYOSURGERY (liquid nitrogen) TREATMENT: The treated area may get wet - gentle washing, bathing and swimming are permitted. Within the next 1-24 hours the treated area will begin to develop some swelling, redness and sometimes a blister. The blister may be very small and not noticeable or occasionally quite large, particularly if a wart was treated or if a large area was treated. In some cases the blister may be a blood blister giving a purple or reddish-brown appearance to the area. This is to be expected and is not cause for concern. If the blister is large and painful it is ok to watson the blister witha needle or pin (cleansed with alcohol) to let out the fluid and relieve the pressure. If you have discomfort in the treated area, the most helpful treatment is to soak it in warm water.Tylenol or ibuprofen may be taken if necessary. Otherwise, leave the area alone and let it dry up over the next 1-3 weeks to a scab or crust. Allowit to fall off by itself. During this time the area may get wet and no special care is needed. If desired, you may cover it with a Band-Aid. If the blister is rubbed off accidentally in the first 1 to 5 days, apply polysporin ointment or other antibiotic ointment (available without a prescription at the drug store) to the area twice dailyand cover with a Band-Aid. Continue for 5 to 6 days. If you have questions please call the office. documented in this encounter Progress Notes * Lisbeth Dinh MD - 12/25/2018 10:00 AM EDT SUBJECTIVE: History of Present Illness: Ignacio Garcia is a 73 year old male seen today for several new growths. Last Office Visit: 02/11/2017. Pt has a history of Actinic keratosis, no history of skin cancer. New concerns today include: rough lesion on the left frontal scalp x few months. Bump under the left forehead, treated with cryotherapy in the past but still feeling a bump Growth under the left nare x months Actinic keratosis on the right and left forehead treated with cryotherapy at last visit. REVIEW OF SYSTEMS: SKIN: No other new or changing moles. HEME/LYMPH: No new or enlarging lumps or bumps. MEDICA TIONS: Current Outpatient Medications Medication Sig Dispense Refill [...] 2 times a day. 10.6 g 4 ALLERG IES: Patient has no known allergies. PAST MEDICAL HISTORY: Past Medical History: Diagnosis Date Bronchiectasis (HCC) 12/08/2013 Encounter for long-term (current) use of other medications 07/27/2010 History of rheumatoid arthritis 01/06/2016 HTN, goal below 140/90 Pernicious anemia 08/24/2010 OBJECTIVE: GEN: Healthy, alert, no distress, appears oriented, pleasant and cooperative. SKIN: Detailed exam of hair, face including lids and lips and neck completed and are normal except: 1. rough pink scaling patch on the left frontal scalp. 2. 2mm Tyler slightly keratotic papule on the left forehead. 3. Flesh-colored papule under the left nasal alar rim, approx. 0.4cm ASSESS MENT/PLAN: 1. Actinic keratosis-Cryosurgery explained to the patient, consent obtained, patient, site and procedure verified, and then cryotherapy was performed with Liquid Nitrogen via cryo spray unit to 1 lesions. Location noted in physical exam. Post op course explained. 2. Seborrheic/Benign Keratosis(-es)-Benign nature was discussed and no further intervention needed.Advised to call with any changes. 3. Fibrous papule-discussed option of shave removal vs observation, pt prefers to observe for now. Discussed sun protection with patient including proper use of sunscreens and protective clothing. Follow-up: as needed There were no barriers tolearning and no other pain was related to today's visit. The patient and/or person accompanying patient demonstrates understanding of the visit and treatment. Lisbeth Dinh MD 12/24/2018 9:30 PM Ref: WILLIAM CHAVEZ[[id number]] [address] [facility] [place] [address] (office) [phone] (fax) PCP: WILLIAM CHAVEZ [address] [facility] [place] [address] [phone] documented in this encounter Nursing Notes * Farida Estevez MED ASSIST - 12/25/2018 9:57 AM EDT Last Office Visit: 02/11/2017 Patient identified by name and date of . Do you have any concerns about pain management for today's visit? No Living Will or Advance Directive for Health Care as noted on problem list. [facility] is a way you can talk to your provider online through e-mail. Would you like to sign up? I can activate it for you? ALREADY ACTIVE Chief Complaint Patient presents with Follow Up Two raised lesions on top of head, one was tx with cryo but did not go away. Also skin tag left nasal passage. documented in this encounter Plan of Treatment Upcoming Encounters Date Type Specialty Care Team Description 01/13/2019 Office Visit Nephrology Lisbeth Wadr MD [address] [facility] [place], [place] [address] [phone] 02/04/2019 Office Visit Rheumatology Carlos Alberto Matthews MD [facility] [place] [address] [phone] 03/24/2019 Office Visit Internal Medicine [facility] [address] [phone] Health Maintenance Due Date Last Done Comments FOBT ANNUALLY,AGES 18-90 03/22/2017 03/22/2016, 09/26 Influenza Vaccine (FLU shot) (#1) 2018 05/22/2018, 06/05/2017, 05/04/2016, Additional history exists CKD GFR USE SMARTSET 29372 05/13/201911/11, 10/22/2018, 05/04/2016, Additional history exists CKD HGB USE SMARTSET 01356 10/23/201910/22, 07/06/2016, 05/04/2016, Additional history exists CKD PHOS USE SMARTSET 00854 10/23/2019 10/22/2018, 1 07/05/2015 DIABETES SCREEN EVERY [...] as of this encounter Visit Diagnoses Diagnosis Actinic keratosis- Primary Seborrheic keratosis Other seborrheic keratosis Fibrous papule of nose Benign neoplasm of skin of other and unspecified parts of face documented in this encounter Advance Directives Documents on File Type Date Recorded Patient Tobacco Educator Expl anation Advanced Directive Advanced Directive Advanced Directive Advanced Directive Advanced Directive Advanced Directive Advanced Directive
--- OUTSIDE RECORDS SUMMARY | 2023-01-29 05:10 | External Medical Summary | Summary of Care ---
Author Name Unknown Organization [place] [address] Care Team Providers Care Baggage Clerk Name Role Phone William Joseph MD Primary Care Provider + Reason for Visit * Reason Comments Rheum Follow Up 3 month return Encounter Details Date Type Department Care Team Description 06/24/2019 Office Visit Rheumatology [facility] [address] [place] [address] Harry Brooks MD [address] [place] [address] Rheumatoid arthritis involving multiple sites with positive rheumatoid factor (HCC)*; Benign hypertension with CKD (chronic kidney disease) stage III ([facility]); Encounter for therapeutic drug monitoring Allergies No Known Allergiesdocumented as of this encounter (statuses as of 06/24/2019) Medications Medication Sig Dispensed Refills Start Date End Date Status benzonatate (TESSALON PERLES) 100 MG CapsuleIndications :Cough Take 1 Cap by mouth 2 times a day as needed for Cough. Do not cut, crush, or chew. 50 Cap 1 06/03/2018 Active amlodipine-benazep ril 5-20 mg per cap (LOTREL) 5-20 MG per capsuleIndications :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) Take 1 Cap by mouth daily. 30 Cap 11 08/08/2018 Active vitamin b-12 (CYANOCOBALAMIN) 1000 MCG/ML injectionIndicatio ns:Pernicious anemia Inject 1,000 mcg into a large muscle every 30 days. 1 mL 5 12/09/2018 Active Cholecalciferol (VITAMIN D-3) 1000 units Capsule Take 1 Cap by mouth daily. 0 12/17/2018 Active Tofacitinib Citrate (XELJANZ) 5 MG TABSIndications:Rh eumatoid arthritis involving multiple sites with positive rheumatoid factor (HCC) Take 5 mg by mouth daily. Xeljanz AUTH # [id number] VALID DATES: 02/26/19- 021 30 Tab 5 03/02/2019 Active predniSONE (DELTASONE) 5 MG TabletIndications: H/O rheumatoid arthritis Take 1 Tab by mouth daily. 30 Tab 1 06/01/2019 Active fluticasone (FLOVENT HFA) 44 MCG/ACT inhalerIndications :Bronchiectasis (HCC) Inhale 1 Puff by mouth 2 times a day. 10.6 g 4 06/19/2019 Active saline (OCEAN NASAL SPRAY) 0.65 % nasal sprayIndications:D ry nose Administer 2 Sprays into each nostril as needed for Congestion. for nasal dryness or congestion 1 Bottle 5 12/17/2018 06/24/2019 Discontinue d(End of Procedure) documented as of this encounter (statuses as [...] Sign Reading Time Taken Comments Blood Pressure 142/76 06/24/2019 1:43 PM EST Pulse - - Temperature 36.4 C (97.5 F) 06/24/2019 1:43 PM ES T Respiratory Rate - - Oxygen Saturation - - Inhaled Oxygen Concentration - - Weight 82.1 kg (181 lb) 06/24/2019 1:43 PM EST Height - - Body Mass Index 28.35 12/17/2018 2:11 PM EDT documented in this encounter Progress Notes * Harry Brooks MD - 06/24/2019 3:10 PM EST Progress Notes Today's Visit Note 06/24/2019 Harry Brooks MD Assessment Diagnosis Comment (M05.79) Rheumatoid arthritis involving multiple sites with positive rheumatoid factor (HCC) (primary (I12.9, N18.3) 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) (Z51.81) Encounter for therapeutic drug monitoring Comment As going at [facility] and rheumatoid arthritis without being on any treatment. For some reason never received his Xeljanz. Will need to check into that. Plan 1. Will contact specially pharmacy to find out why his Xeljanz was never shipped in the fall 2. Start Xeljanz 5 mg once a day once received 3. Labs in 1 month after starting Xeljanz 4. As needed prednisone 5. Clinic in 3 months History "Mr. Garcia is a 73 year old man last seen in Rheumatology today (06-24-19). He has h/o RA, Mixed hyperlipidemia, 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), Bronchiectasis (HCC), Pernicious anemia, Bunion, left foot, Generalized osteoarthritis, and Primary osteoarthritis of right hip." Temporary History he reports he never received xeljanz from [facility] specialty pharmcy. we went the script in back in February of last year. he will use prednisone at times. he has noted some increasing neck pain over the last few months. it will respond to prednisone. he does not grinding in his neck with rotation. no radicular symptoms. his RA is moderate activity - mainly hands, wrists. in the last month he maybe took pred 15mg daily for 2 days. He would like to give Xeljanz a try. Leflunomide had helped but causedsignificant GI side effects. Failed methotrexate. Permanent History diagnosed with RA in 2001 but now burnt out, off DMARD therapy Events Since Last Visit Event Y/N Comment New Symptom Yes neck pain Condition Summary Date Description 03/24/2019 GEN INT MED [facility] with Dr. Joseph (Benign hypertension with CKD (chronickidney disease) stage III (HCC)) 02/26/2019 RHEUMATOLOGY [facility] with Dr. Brooks (Rheumatoid arthritis involving multiple sites with positive rheumatoid factor (HCC)) 12/31/2018 NEPHROLOGY [facility] with Dr. Ward (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)) 12/25/2018 DERMATOLOGY [facility] with Dr. Dinh (Actinic keratosis) Review of Systems (ROS) ROS Symptoms General None HEENT None MS/Neuro neck pain Skin None Cardiopulmonary Chronic cough Gastrointestinal None Genitourinary None Medications Rheumatology Meds Other Meds PREDNISONE 5 MG Take 1 Tab by mouth daily. AMLODIPINE BESY-BENAZEPRIL HCL 5-20 MG PO CAPS Take 1 Cap by mouth daily. TOFACITINIB CITRATE 5 MG Take 5 mg by mouth daily. Xeljanz AUTH # [id number] VALID DATES: 02/26/19-02/26/2021 BENZONATATE 100 MG PO CAPS Take 1 Cap by mouth 2 times a day as needed for Cough. Do not cut, crush, or chew. CYANOCOBALAMIN 1000 MCG/ML IJ SOLN Inject 1,000 mcg into a large muscle every 30 days. FLUTICASONE PROPIONATE HFA 44 MCG/ACT IN AERO Inhale 1 Puff by mouth 2 times a day. VITAMIN D-3 25 MCG (1000 UT) PO CAPS Take 1 Cap by mouth daily. 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 Home Status With Spouse Exercise Not at all Education 16 Alcohol Yes Smoking Former Smoker Falls Past Month No Use of Cane No Use of Walker No Temporary Social History Working Permanent Social History works parts identifier Vital Signs Vital Value Temp 97.5 F BP 142/76 Pulse Weight 181 Height BMI 28.35 Physical Exam System Findings General alert, well developed, well nourished, in no acute distress Skin normal color and texture, no rashes or significant lesions Musculoskeletal Trace synovitis right 2nd 3rd MCP and wrist with tenderness, crepitus on exam knees Eyes PERRLA, conjunctiva pink and non-injected, sclera clear HENT normocephalic, atraumatic, normal nasal and oropharyngeal mucosa Heart regular rate and rhythm, no murmurs or rubs Lungs clear to auscultation, no wheezes, Abdomen soft, normal bowel sounds, no masses or organomegaly Monitoring Labs Measure Today Previous HGB g/dl 15.2 10/27/2018 eGFR mL/min/1.73 M2 51 11/13/2018 ALT U/L 18 11/13/2018 Outcome Measures Measure Today Previous MDHAQ 0.67 06/24/2019 0.67 02/26/2019 Pain 4 06/24/2019 3 02/26/2019 Fatigue 0 06/24/2019 0 02/26/2019 Stiffness 0 06/24/2019 0 02/26/2019 Patient Global 5 06/24/2019 8 02/26/2019 Rapid3 9.67 06/24/2019 11.67 02/26/2019 Tender Score 3 06/24/2019 8 02/26/2019 Swollen Score 0 06/24/2019 8 02/26/2019 Physician Global Score 3 06/24/2019 3 02/26/2019 Patient Global Score 5 06/24/2019 8 02/26/2019 CDAI 11 06/24/2019 27 02/26/2019 Care Gaps As Of 06/24/2019 Physician closed RA on DMARD RA, on DMARD closed Active RA on DMARD (CDAI > 10) Active RA, On DMARD (CDAI > 10) open RA at Low Disease Activity High Disease Activity: CDAI > 22 closed Serial CDAI (>50% of visits) [...] Measure Current Target CDAI 11 10 Opportunity The patient has 2 or more CDAI values in the last 14 months and the two most recent are greater than the target value. How would you like to change treatment? Decision Escalate Signature HARRY BROOKS documented in this encounter Nursing Notes * Josi Romo LPN - 06/24/2019 1:45 PM EST Chief Complaint Patient presents with Rheum Follow Up 3 month return documented in this encounter Plan of Treatment Upcoming Encounters Date Type Specialty Care Team Description 09/21/2019 Office Visit Internal Medicine William Joseph MD [address] [place] [address], [place] [address] [phone] 10/06/2019 Office Visit Rheumatology Harry Brooks MD [address] [facility] [place], [place] [address] [phone] Health Maintenance Due Date Last Done Comments Zoster Vaccines (2 of 3) 03/07/2015 01/10/2015 FOBT ANNUALLY,AGES 18-90 03/22/2017 03/22/2016, 09/26 CKD GFR USE SMARTSET 39300 05/13/201911/11, 10/22/2018, 05/04/2016, Additional history exists CKD HGB USE SMARTSET 30389 10/23/201910/22, 07/06/2016, 05/04/2016, Additional history exists CKD PHOS USE SMARTSET 52978 10/23/2019 10/22/2018, 1 07/05/2015 DIABETES SCREEN EVERY [...] Documents on File Type Date Recorded Patient Fire Services Plumber Expl anation Advanced Directive Advanced Directive Advanced Directive Advanced Directive Advanced Directive Advanced Directive Advanced Directive Advanced Directive
--- OUTSIDE RECORDS SUMMARY | 2023-01-29 05:10 | External Medical Summary | Summary of Care ---
Author Name Unknown Organization [place] [address] Care Team Providers Care Subgrade Roller Operator Name Role Phone William Chavez MD Primary Care Provider + Reason for Visit * Reason Comments Pt Portal Med Renewal Encounter Details Date Type Department Care Team Description 06/18/2019 Refill General Internal Medicine [facility] [address] [place], [place] [id number] William Chavez MD [address] [place] [address] [phone] Bronchiectasis (HCC) Allergies No Known Allergiesdocumented as of this encounter (statuses as of 06/19/2019) Medications Medication Sig Dispensed Refills Start Date [...] or congestion 1 Bottle 5 12/17/2018 Active Tofacitinib Citrate (XELJANZ) 5 MG TABSIndications:Rh eumatoid arthritis involving multiple sites with positive rheumatoid factor (HCC) Take 5 mg by mouth daily. Xeljanz AUTH # [id number] VALID DATES: 02/26/19-02/27/20 21 30 Tab 5 03/02/2019 Active Additional Information Patient not taking. Reported on 03/24/2019 3:14 PM predniSONE (DELTASONE) 5 MG TabletIndications: H/O rheumatoid arthritis Take 1 Tab by mouth daily. 30 Tab 1 06/01/2019 Active fluticasone (FLOVENT HFA) 44 MCG/ACT inhalerIndications :Bronchiectasis (HCC) Inhale 1 Puff by mouth 2 times a day. 10.6 g 4 06/19/2019 Active fluticasone (FLOVENT HFA) 44 MCG/ACT inhalerIndications :Bronchiectasis (HCC) Inhale 1 Puff by mouth 2 times a day. 10.6 g 4 05/07/2018 0 Discontinue d(Refill) documented as of this encounter (statuses as of 06/19/2019) Active Problems Problem Noted Date Mixed hyperlipidemia [...] as of this encounter (statuses as of 06/19/2019) Resolved Problems Problem Noted Date Resolved Date History of rheumatoid arthritis 09/04/2017 08/20/2018 History of rheumatoid arthritis 01/06/2016 07/27/2016 Kidney disease, chronic, stage III (GFR 30-59 ml /min) 08/09/2014 07/30/2017 Overview: Per CKD protocol #1 HTN, goal below 140/90 8 Kidney disease, chronic, stage III (GFR 30-59 ml /min) 03/24/2012 documented as of this encounter (statuses as of 06/19/2019) Immunizations Name Administration Dates Next Due Pneumococcal [...] Telephone Encounter - William Chavez MD - 06/19/2019 8:03 AM EST Signed Prescriptions: Disp Refills fluticasone (FLOVENT HFA) 44 MCG/ACT inhal*10.6 g 4 Sig: Inhale 1 Puff by mouth 2 times a day. Authorizing Provider: WILLIAM CHAVEZ * Telephone Encounter - Tairk Vaca, SPRAY TECHNICIAN - 06/19/2019 8:02 AM EST Pending Prescriptions: Disp Refills fluticasone (FLOVENT HFA) 44 MCG/ACT inha*10.6 g 4 Sig: Inhale 1 Puff by mouth 2 times a day. Last Office Visit: 03/24/2019 Next Office Visit: 09/21/2019 Scheduled Provider(s): William Chavez MD Last date the medication was ordered: 05/07/2018 Patient Active Problem List Diagnosis Code Encounter for therapeutic drug monitoring Z51.81 Pernicious anemia D51.0 Bronchiectasis ([facility]) J47.9 Thoracic aortic aneurysm ([facility]) I71.2 Benign hypertension with CKD (chronic kidney disease) stage III ([facility]) I12.9, N18.3 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 Bunion, left foot M21.612 Primary osteoarthritis of right hip M16.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 ([facility]) M05.79 Mixed hyperlipidemia E78.2 Labs: CREATININE-OUTSIDE LAB(MG/DL) Nikita Dt/Tm Resulted Value [...] A1C components found * Telephone Encounter - Tarik Vaca LPN - 06/19/2019 8:02 AM EST Message from Hydrelis: Ignacio Garcia would like a refill of the following medications: fluticasone (FLOVENT HFA) 44 MCG/ACT inhaler [William Chavez MD] Preferred pharmacy: [id number] documented in this encounter Plan of Treatment Upcoming Encounters Date Type Specialty Care Team Description 06/24/2019 Office Visit Rheumatology Carlos Alberto Matthews MD [facility] [place] [address] [phone] 09/21/2019 Office Visit Internal Medicine William Chavez MD [address] [facility] [place] [address] [phone] Health Maintenance Due Date Last Done Comments Zoster Vaccines (2 of 3) 03/07/2015 01/10/2015 FOBT ANNUALLY,AGES 18-90 03/22/2017 03/22/2016, 09/26 CKD GFR USE SMARTSET 70466 05/13/201911/11, 10/22/2018, 05/04/2016, Additional history exists CKD HGB USE SMARTSET 27400 10/23/201910/22, 07/06/2016, 05/04/2016, Additional history exists CKD PHOS USE SMARTSET 29971 10/23/2019 10/22/2018, 1 07/05/2015 DIABETES SCREEN EVERY [...] Documents on File Type Date Recorded Patient Obstetrics/Gynecology Nurse Expl anation Advanced Directive Advanced Directive Advanced Directive Advanced Directive Advanced Directive Advanced Directive Advanced Directive Advanced Directive
--- OUTSIDE RECORDS SUMMARY | 2023-01-29 05:10 | External Medical Summary | Summary of Care ---
Author Name Unknown Organization [place] [address] Care Team Providers Care Bead Wrapper Name Role Phone William Joseph MD Primary Care Provider + Reason for Visit * Reason Comments Ultrasound Encounter Details Date Type Department Care Team Description 08/10/2019 Telephone General Internal Medicine [facility] [address] [place] [address] William Joseph MD [address] [place] [address] Ultrasound Allergies No Known Allergiesdocumented [...] mg by mouth daily. Xeljanz AUTH # [id number] VALID DATES: 02/26/19-02/26/2021 60 Tab 5 07/14/2019 [...] Nurse, Int Med [address] [place] [address] [phone] 10/06/2019 Office Visit Rheumatology Carlos Alberto Matthews MD [facility] [address] [place] [address] [phone] 02/11/2020 Office Visit Internal Medicine William Joseph MD [address] [place] [address] [phone] Health Maintenance Due Date Last Done Comments Zoster Vaccines (2 of 3) 03/07/2015 01/10/2015 FOBT ANNUALLY,AGES 18-90 03/22/2017 03/22/2016, 09/26 CKD GFR USE SMARTSET 11713 05/13/201911/11, 10/22/2018, 05/04/2016, Additional history exists CKD HGB USE SMARTSET 49642 10/23/201910/22, 07/06/2016, 05/04/2016, Additional history exists CKD PHOS USE SMARTSET 28480 10/23/2019 10/22/2018, 1 07/05/2015 DIABETES SCREEN EVERY [...] Documents on File Type Date Recorded Patient Opinion Polls Survey Worker Expl anation Advanced Directive Advanced Directive Advanced Directive Advanced Directive Advanced Directive Advanced Directive Advanced Directive Advanced Directive Advanced Directive
--- OUTSIDE RECORDS SUMMARY | 2023-01-29 05:10 | External Medical Summary | Summary of Care ---
Author Name Unknown Organization [place] [address] Care Team Providers Care Public Housing Interviewer Name Role Phone William Joseph MD Primary Care Provider + Reason for Visit * Reason Comments Re-Check pt states he feels f ine, but tired Medication Administration Flu and/or Pne umo Inj Encounter Details Date Type Department Care Team Description 03/24/2019 Office Visit General Internal Medicine 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 Xeljanz AUTH # [id number] VALID DATES: 02/26/19- 1 30 Tab 5 03/02/2019 Active documented as of this encounter (statuses as of 03/24/2019) Active Problems Problem Noted Date Mixed hyperlipidemia [...] as of this encounter (statuses as of 03/24/2019) Resolved Problems Problem Noted Date Resolved Date History of rheumatoid arthritis 09/04/2017 08/20/2018 History of rheumatoid arthritis 01/06/2016 07/27/2016 Kidney disease, chronic, stage III (GFR 30-59 ml /min) 08/09/2014 07/30/2017 Overview: Per CKD protocol #1 HTN, goal below 140/90 8 Kidney disease, chronic, stage III (GFR 30-59 ml /min) 03/24/2012 documented as of this encounter (statuses as of 03/24/2019) Immunizations Name Administration Dates Next Due Pneumococcal [...] Reading Time Taken Comments Blood Pressure 138/70 03/24/2019 3:31 PM EDT Pulse 72 03/24/2019 3:14 PM EDT Temperature 36.6 C (97.9 F) 03/24/2019 3:14 PM ED T Respiratory Rate 12 03/24/2019 3:14 PM EDT Oxygen Saturation - - Inhaled Oxygen Concentration - - Weight 80.6 kg (177 lb 9.6 oz) 03/24/2019 3:14 P M EDT Height - - Body Mass Index 27.82 12/17/2018 2:11 PM EDT documented in this encounter Patient Instructions * Patient Instructions* Kelvin Simon RN - 03/24/2019 3:16 PM EDT ~~PATIENT INSTRUCTIONS FOR FLU SHOT~~ Possible side [...] Progress Notes * William Joseph MD - 03/24/2019 3:39 PM EDT Chief Complaint Patient presents with Re-Check pt states he feels fine, but tired Medication Administration Flu and/or Pneumo Inj SUBJECTIVE: Ignacio Garcia is a 73 year old male with PMH as below who presents for f/u htn. Checks at home, hasbeen 130's mostly, occasionally 150's, but if rests, rechecks 5-10 min later, better. No cp, sob, lloyd. A little fatigue today, but usually doing well. Mood is good. Follows with nephrology too, sees in April. 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 vitamin b-12 (CYANOCOBALAMIN) 1000 MCG/ML injection Inject 1,000 mcg into a large muscle every 30 days. 1 mL 5 amlodipine-benazepril 5-20 mg per cap (LOTREL) 5-20 MG per capsule Take 1 Cap by mouth daily. 30 Cap 11 benzonatate (TESSALON PERLES) 100 MG Capsule Take 1 Cap by mouth 2 times a day as needed for Cough. Do not cut, crush, or chew. 50 Cap 1 fluticasone (FLOVENT HFA) 44 MCG/ACT inhaler Inhale 1 Puff by mouth 2 times a day. 10.6 g 4 Tofacitinib Citrate (XELJANZ) 5 MG TABS Take 5 mg by mouth daily. Xeljanz AUTH # [id number] VALIDDATES: 02/26/19-02/26/2021 (Patient not taking: Reported on 03/24/2019) 30 Tab 5 saline (OCEAN NASAL SPRAY) 0.65 % nasal spray Administer 2 Sprays into each nostril as needed for Congestion. for nasal dryness or congestion 1 Bottle 5 PredniSONE (DELTASONE) 5 MG Tablet Take 1 Tab by mouth daily. 30 Tab 1 Review of patient's allergies indicates: No Known Allergies Health Maintenance Due Topic Date Due FOBT ANNUALLY,AGES 18-90 03/22/2017 Influenza Vaccine (FLU shot) (1) 01/25/2019 ROS: CONSTITUTIONAL: No change in weight, No weakness and No fevers, sweats, or chills PULMONARY: No hemoptysis, No wheezing, No rales, [...] or early satiety and No dysphagia EXTREMITIES: RA overall ok, a little right knee pain today, following with rheum for this All OTHER SYSTEMS NEGATIVE EXCEPT STATED IN HPI ABOVE, OVER 10 SYSTEMS REVIEWED I reviewed social, PMH, PSH, and family history and updated where needed. 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 Employer: [employer] Social Needs Financial resource strain: Not on file Food insecurity: Worry: Never true Inability: Never true Transportation needs: Medical: Not on file Non-medical: Not on file Tobacco Use Smoking status: Former Smoker Packs/day: 2.00 Years: 35.00 Pack years: 70.00 Types: Cigarettes Last attempt to quit: 06/25/1990 Years since quittin.7 Smokeless tobacco: Never Used Substance and Sexual [...] file Gets together: Not on file Attends pentecostal service: Not on file Active member of [...] Asked Social History Narrative Not on file Past Medical History: Diagnosis Date Bronchiectasis (HCC) 12/08/2013 Encounter for long-term (current) use of other medications 07/27/2010 History of rheumatoid arthritis 01/06/2016 HTN, goal below 140/90 Pernicious anemia 08/24/2010 Past Surgical History: Procedure Laterality Date DENTAL SURGERY PROCEDURE NEC 1980 REMOVE TONSILS & ADENOIDS, UNDER 12 1954 Family History Problem Relation Age of Onset Other (osteoarthritis [Other]) Mother Hypertension Mother OBJECTIVE: PHYSICAL EXAM: BP 138/70 | Pulse 72 | Temp (Src) 97.9 (Tympanic) | Resp 12 | Wt 177 lbs 9.6 oz (80.559kg) | BMI 27.82 kg/m | BSA 1.95 m General: alert, healthy and no distress Head: Normocephalic, No masses, lesions, tenderness or abnormalities Heart: regular rate & rhythm, no murmurs, no gallops, PMI non-displaced, S-1 normal and S-2 normal Lungs: normal respiratory rate and rhythm, lungs clear to auscultation Psych: normal affect, no flight of ideas or tangential thought, good eye contact, no pressured speech Neuro: stands on own, normal gait Mouth: MMM, no lesions Eye: sclera clear, conjunctiva w/o injection I reviewed last nephrology note: CKD3A w/ no recent protreinuria assessments but [...] 4 months (around 05/02/2019). 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 William Joseph MD * Kelvin Simon RN - 03/24/2019 3:16 PM EDT PRE - ADMINISTRATION DOCUMENTATION Are you allergic to latex? No Are you experiencing any cold symptoms or fever? No Have you had Guillain-[place] Syndrome (an illness that causes paralysis) within the last 6 weeks? No Have you had the flu shot in the past? YES Have you ever had a reaction to the flu shot? No Kelvin Simon RN, 03/24/2019 3:16 PM Immunization Administration Documentation Time Out Procedure [...] Nursing Notes * Kelvin Simon RN - 03/24/2019 3:12 PM EDT Chief Complaint Patient presents with Re-Check pt states he feels fine, but tired documented in this encounter Plan of Treatment Upcoming Encounters Date Type Specialty Care Team Description 05/11/2019 Office Visit Nephrology Lisbeth Ward MD [address] [place] [address] [phone] 06/24/2019 Office Visit Rheumatology Carlos Alberto Matthews MD [address] [place] [address] [phone] 06/24/2019 Office Visit Internal Medicine William Joseph MD [address] [place] [address] [phone] Scheduled Orders Name Type Priority Associated Diagnoses Orde r Schedule FECAL OCCULT BLOOD, EIA (FOBT) Lab Routine Screen for colon cancer Expected: 03/24/2019 (Approximate), Expires: 03/23/2020 Health Maintenance Due Date Last Done Comments FOBT ANNUALLY,AGES 18-90 03/22/2017 03/22/2016, 09/26 Influenza Vaccine (FLU shot) (#1) 2019 05/22/2018, 06/05/2017, 05/04/2016, Additional history exists CKD GFR USE SMARTSET 13848 05/13/201911/11, 10/22/2018, 05/04/2016, Additional history exists CKD HGB USE SMARTSET 47052 10/23/201910/22, 07/06/2016, 05/04/2016, Additional history exists CKD PHOS USE SMARTSET 55759 10/23/2019 10/22/2018, 1 07/05/2015 DIABETES SCREEN EVERY [...] stage I through stage IV, or unspecified Thoracic aortic aneurysm without rupture (HCC) Thoracic aneurysm without mention of rupture Rheumatoid arthritis involving multiple sites with positive rheumatoid factor (HCC) Need for prophylactic vaccination and inoculation against influenza Screen for colon cancer Special screening for malignant neoplasms, colon documented in this encounter Advance Directives Documents on File Type Date Recorded Patient Maintenance Coordinator Expl anation Advanced Directive Advanced Directive Advanced Directive Advanced Directive Advanced Directive Advanced Directive Advanced Directive Advanced Directive"
--- OUTSIDE RECORDS SUMMARY | 2023-01-29 05:10 | External Medical Summary | Summary of Care ---
Author Name Unknown Organization [place] [address] Care Team Providers Care Mothers Helper Name Role Phone William Joseph MD Primary Care Provider + Reason for Visit * Reason Comments Medication Pre-auth xeljanz Encounter Details Date Type Department Care Team Description 06/24/2019 Telephone Rheumatology [facility] [address] [place] [address] Carlos Alberto Matthews MD [address] [place] [address] Medication Pre-auth (xeljanz) Allergies No Known [...] mg by mouth daily. Xeljanz AUTH # [id number] VALID DATES: 02/26/19-02/26 30 Tab 5 06/24/2019 Active Tofacitinib Citrate (XELJANZ) 5 MG TABSIndications:Rhe umatoid arthritis involving multiple sites with positive rheumatoid factor (HCC) Take 5 mg by mouth daily. Xeljanz AUTH # [id number] VALID DATES: 02/26/19-02/26 30 Tab 5 03/02/2019 [...] his auth is still good AUTH # [id number] VALID DATES: 02/26/19-02/26/2021 Maybe they tried to call him and he didn't answer??? * Telephone Encounter - Carlos Alberto Matthews MD - 06/24/2019 1:55 PM EST xeljanz was approved last fall. Patient reports he never received xeljanz. It was sent to [facility] back in February 2019 documented in this encounter Plan of Treatment Upcoming Encounters Date Type Specialty Care Team Description 09/21/2019 Office Visit Internal Medicine William Joseph MD [address] [place] [address] [phone] 10/06/2019 Office Visit Rheumatology Carlos Alberto Matthews MD [address] [facility] [place] [address] [phone] Health Maintenance Due Date Last Done Comments Zoster Vaccines (2 of 3) 03/07/2015 01/10/2015 FOBT ANNUALLY,AGES 18-90 03/22/2017 03/22/2016, 09/26 CKD GFR USE SMARTSET 63904 05/13/201911/11, 10/22/2018, 05/04/2016, Additional history exists CKD HGB USE SMARTSET 80072 10/23/201910/22, 07/06/2016, 05/04/2016, Additional history exists CKD PHOS USE SMARTSET 04519 10/23/2019 10/22/2018, 1 07/05/2015 DIABETES SCREEN EVERY [...] Documents on File Type Date Recorded Patient Enterprise Analyst Expl anation Advanced Directive Advanced Directive Advanced Directive Advanced Directive Advanced Directive Advanced Directive Advanced Directive Advanced Directive
--- OUTSIDE RECORDS SUMMARY | 2023-01-29 05:10 | External Medical Summary | Summary of Care ---
Author Name Unknown Organization [place] [address] Care Team Providers Care Excellence Specialist Name Role Phone William Chavez MD Primary Care Provider + Reason for Visit * Reason Comments Pt Portal Med Renewal Encounter Details Date Type Department Care Team Description 06/01/2019 Refill General Internal Medicine [facility] [address] [place] [address] William Chavez MD [address] [place] [address] H/O rheumatoid arthritis Allergies No Known Allergiesdocumented as of this encounter (statuses as of 06/01/2019) Medications Medication Sig Dispensed Refills Start Date End Date Status fluticasone (FLOVENT HFA) 44 MCG/ACT inhalerIndications :Bronchiectasis (HCC) Inhale 1 Puff by mouth 2 times a day. 10.6 g 4 05/07/2018 Active benzonatate (TESSALON PERLES) 100 MG CapsuleIndications [...] mg by mouth daily. Xeljanz AUTH # [id number] VALID DATES: 02/26/19-02/27/20 21 30 Tab 5 03/02/2019 Active Additional information Patient not taking. Reported on 03/24/2019 3:14 PM predniSONE (DELTASONE) 5 MG TabletIndications: H/O rheumatoid arthritis Take 1 Tab by mouth daily. 30 Tab 1 06/01/2019 Active PredniSONE (DELTASONE) 5 MG TabletIndications: H/O rheumatoid arthritis Take 1 Tab by mouth daily. 30 Tab 1 06/05/2018 0 Discontinue d(Refill) documented as of this encounter (statuses as of 06/01/2019) Active Problems Problem Noted Date Mixed hyperlipidemia [...] as of this encounter (statuses as of 06/01/2019) Resolved Problems Problem Noted Date Resolved Date History of rheumatoid arthritis 09/04/2017 08/20/2018 History of rheumatoid arthritis 01/06/2016 07/27/2016 Kidney disease, chronic, stage III (GFR 30-59 ml /min) 08/09/2014 07/30/2017 Overview: Per CKD protocol #1 HTN, goal below 140/90 8 Kidney disease, chronic, stage III (GFR 30-59 ml /min) 03/24/2012 documented as of this encounter (statuses as of 06/01/2019) Immunizations Name Administration Dates Next Due Pneumococcal [...] Telephone Encounter - William Chavez MD - 06/01/2019 1:47 PM EST Signed Prescriptions: Disp Refills predniSONE (DELTASONE) 5 MG Tablet 30 Tab 1 Sig: Take 1 Tab by mouth daily. Authorizing Provider: WILLIAM CHAVEZ * Telephone Encounter - Tarik Vaca LPN - 06/01/2019 1:12 PM EST Pending Prescriptions: Disp Refills predniSONE (DELTASONE) 5 MG Tablet 30 Tab 1 Sig: Take 1 Tab by mouth daily. Last Office Visit: 03/24/2019 Next Office Visit: 06/24/2019 Scheduled Provider(s): William Chavez MD Last date the medication was ordered: 06/05/2018 Patient Active Problem List Diagnosis Code Encounter for therapeutic drug monitoring Z51.81 Pernicious anemia D51.0 Bronchiectasis (HCC) J47.9 Thoracic aortic aneurysm (HCC) I71.2 Benign hypertension with CKD (chronic kidney disease) stage III ([facility]) I12.9, N18.3 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 Bunion, left foot M21.612 Primary osteoarthritis of right hip M16.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 ([facility]) M05.79 Mixed hyperlipidemia E78.2 Labs: CREATININE-OUTSIDE [...] Telephone Encounter - Tarik Vaca LPN - 06/01/2019 1:12 PM EST Message from Fiberstarer: Ignacio Jay Jose would like a refill of the following medications: PredniSONE (DELTASONE) 5 MG Tablet [William Chavez MD] Preferred pharmacy: [id number] documented in this encounter Plan of Treatment Upcoming Encounters Date Type Specialty Care Team Description 06/24/2019 Office Visit Rheumatology Carlos Alberto Matthews MD [address] [place] [address] [phone] 06/24/2019 Office Visit Internal Medicine William Chavez MD [address] [facility] [place] [address] [phone] Health Maintenance Due Date Last Done Comments Zoster Vaccines (2 of 3) 03/07/2015 01/10/2015 FOBT ANNUALLY,AGES 18-90 03/22/2017 03/22/2016, 09/26 CKD GFR USE SMARTSET 77325 05/13/201911/11, 10/22/2018, 05/04/2016, Additional history exists CKD HGB USE SMARTSET 96355 10/23/201910/22, 07/06/2016, 05/04/2016, Additional history exists CKD PHOS USE SMARTSET 41981 10/23/2019 10/22/2018, 1 07/05/2015 DIABETES SCREEN EVERY 3 YRS-AGE 45 AND ABOVE 11/11/2021 11/11/2018, 10/22/2018, 05/04/2016, Additional history exists DTaP,Tdap,and Td Vaccines (2 - Td) 01/10/2025 01/10/2015 Pneumococcal Vaccine: 65+ Years Completed 07/13/2015, 06/08/2013 Influenza Vaccine (FLU shot) Completed , 05/22/2018, 06/05/2017, Additional history exists MENINGOCOCCAL (MENACTRA) Aged Out No longer eligible based on patient's age to complete this topic documented as of this encounter Implants Not on filedocumented as of this encounter Visit Diagnoses Diagnosis H/O rheumatoid arthritis Personal history of arthritis documented in this encounter Advance Directives Documents on File Type Date Recorded Patient Plate Stacker Hand Expl anation Advanced Directive Advanced Directive Advanced Directive Advanced Directive Advanced Directive Advanced Directive Advanced Directive Advanced Directive
--- OUTSIDE RECORDS SUMMARY | 2023-01-29 05:10 | External Medical Summary | Summary of Care ---
Author Name Unknown Organization [place] [address] Care Team Providers Care Bench Assembler Operator Name Role Phone William Joseph MD Primary Care Provider + Reason for Visit * Reason Comments Follow Up 2 month return- voic es no concerns Encounter Details Date Type Department Care Team Description 12/17/2018 Office Visit General Internal Medicine [facility] [address] [place], [place] [id number] William Joseph MD [address] [place] [address] [phone] Benign hypertension with CKD (chronic kidney disease) stage III ([facility])*; Elevated parathyroid hormone; Primary osteoarthritis of right hip; Rheumatoid arthritis involving multiple sites with positive rheumatoid factor ([facility]); Mixed hyperlipidemia; Dry nose Allergies No Known Allergiesdocumented as of this encounter (statuses as of 12/17/2018) Medications Medication Sig Dispensed Refills Start Date End Date Status fluticasone (FLOVENT HFA) 44 MCG/ACT inhalerIndications: Bronchiectasis (HCC) Inhale 1 Puff by mouth 2 times a day. 10.6 g 4 05/07/2018 Active benzonatate (TESSALON PERLES) 100 MG CapsuleIndications: Cough Take 1 Cap by mouth 2 times a day as needed for Cough. Do not cut, crush, or chew. 50 Cap 1 06/03/2018 Active PredniSONE (DELTASONE) 5 MG TabletIndications:H /O rheumatoid arthritis Take 1 Tab by mouth daily. 30 Tab 1 06/05/2018 Active amlodipine-benazepr il 5-20 mg per cap [...] saline (OCEAN NASAL SPRAY) 0.65 % nasal sprayIndications:Dr denis gilliam Administer 2 Sprays into each nostril as needed for Congestion. for nasal dryness or congestion 1 Bottle 5 12/17/2018 Active leflunomide (ARAVA) 10 MG Tablet Take 1 Tab by mouth daily. 30 Tab 5 07/14/2018 9 Discontinued rosuvastatin (CRESTOR) 10 MG TabletIndications:M ixed hyperlipidemia Take 1 Tab by mouth daily. 30 Tab 5 10/29/2018 9 Discontinued documented as of this encounter (statuses as of 12/17/2018) Active Problems Problem Noted Date Mixed hyperlipidemia [...] as of this encounter (statuses as of 12/17/2018) Resolved Problems Problem Noted Date Resolved Date History of rheumatoid arthritis 09/04/2017 08/20/2018 History of rheumatoid arthritis 01/06/2016 07/27/2016 Kidney disease, chronic, stage III (GFR 30-59 ml /min) 08/09/2014 07/30/2017 Overview: Per CKD protocol #1 HTN, goal below 140/90 8 Kidney disease, chronic, stage III (GFR 30-59 ml /min) 03/24/2012 documented as of this encounter (statuses as of 12/17/2018) Immunizations Name Administration Dates Next Due Pneumococcal [...] Sign Reading Time Taken Comments Blood Pressure 130/76 12/17/2018 2:33 PM EDT Pulse 72 12/17/2018 2:11 PM EDT Temperature 36.7 C (98 F) 12/17/2018 2:11 PM EDT Respiratory Rate 18 12/17/2018 2:11 PM EDT Oxygen Saturation - - Inhaled Oxygen Concentration - - Weight 79.5 kg (175 lb 3.2 oz) 12/17/2018 2:11 P M EDT Height 170.2 cm (5' 7") 12/17/2018 2:11 PM EDT Body Mass Index 27.44 12/17/2018 2:11 PM EDT documented in this encounter Progress Notes * William Joseph MD - 12/17/2018 2:42 PM EDT Chief Complaint Patient presents with Follow Up 2 month return- voices no concerns SUBJECTIVE: Ignacio Garcia is a 73 year old male with PMH as below who presents for recheck of RA, CKD III with HTN, lipids. With RA, pain controlled. Had side effects of diarrhea weight loss on Arava - stopped med, symptoms improved. Weight better now. No N/V/D. With bp, was low at home when had diarrhea so stopped bp med, now back on, has been checking at home 130/70's for most part. He never did see nephrology for CKD but willing. As for lipids, not interested in statin after doing own research. He feelspretty well. Only issue is dry sinus, congestion for 2-3 months. No fevers, chills or bleeds. No ear discharge Patient Active Problem List Diagnosis Code Encounter for therapeutic drug monitoring Z51.81 Pernicious anemia D51.0 Bronchiectasis ([facility]) J47.9 Thoracic aortic aneurysm ([facility]) I71.2 Benign hypertension with CKD (chronic kidney disease) stage III ([facility]) I12.9, N18.3 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 Bunion, left foot M21.612 Primary osteoarthritis of right hip M16.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 ([facility]) M05.79 Current Outpatient Medications Medication Sig Dispense Refill [...] Tab by mouth daily. 30 Tab 1 fluticasone (FLOVENT HFA) 44 MCG/ACT inhaler Inhale 1 Puff by mouth 2 times a day. 10.6 g 4 benzonatate (TESSALON PERLES) 100 MG Capsule Take 1 Cap by mouth 2 times a day as needed for Cough.Do not cut, crush, or chew. 50 Cap 1 Review of patient's allergies indicates: No Known Allergies Health Maintenance Due Topic Date Due FOBT ANNUALLY,AGES 18-90 03/22/2017 *DEPRESSION SCREENING, ANNUAL FOR PTS 18 AND OVER 08/02/2018 ROS: CONSTITUTIONAL: No weakness and No fevers, sweats, or chills EYE: No recent significant change in vision, No eye pain, redness, discharge and No diplopia EARS: No ear pain, No drainage, No tinnitus or vertigo and No recent change in hearing NOSE: No history of frequent colds or sinusitis and No significant epistaxis MOUTH: No bleeding gums, No thrush or No sore throat NECK: No lumps or masses, No swollen glands, No recent swelling in thyroid area, No significant pain in neck and No h/o goiter or thyroid disease PULMONARY: No wheezing, No rales, No shortness of breath and No recent change in breathing CARDIOVASCULAR: No chest pain, No shortness of breath, No dyspnea on exertion, No orthopnea, No paroxysmal nocturnal dyspnea, No edema, No palpitations and No syncope All OTHER SYSTEMS NEGATIVE EXCEPT STATED IN HPI ABOVE, OVER 10 SYSTEMS REVIEWED I reviewed social, PMH, PSH, and family history and updated where needed. 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 Employer: [employer] Social Needs Financial resource strain: Not on file Food insecurity: Worry: Never true Inability: Never true Transportation needs: Medical: Not on file Non-medical: Not on file Tobacco Use Smoking status: Former Smoker Packs/day: 2.00 Years: 35.00 Pack years: 70.00 Types: Cigarettes Last attempt to quit: 06/25/1990 Years since quittin.4 Smokeless tobacco: Never [...] file Gets together: Not on file Attends jehovah's witness service: Not on file Active member of [...] Mother Hypertension Mother OBJECTIVE: PHYSICAL EXAM: BP 130/76 | Pulse 72 | Temp (Src) 98 (Tympanic) | Resp 18 | Ht 5' 7" (1.702m) | Wt 175 lbs 3.2 oz (79.470kg) | BMI 27.44 kg/m | BSA 1.94 m General: alert, healthy and no distress Head: Normocephalic, No masses, lesions, tenderness or abnormalities Eye Exam: PERRLA, Conjunctiva are pink and non-injected, sclera clear Ears: External ears normal, Canals clear, TM's Normal Nose: no purulent discharge, sinus dry Oropharynx: no exudate, no erythema, lips, buccal mucosa, and tongue normal and mucous membranes are moist Heart: regular rate & rhythm, no murmurs, no gallops, PMI non-displaced, S-1 normal and S-2 normal Lungs: normal respiratory rate and rhythm, lungs clear to auscultation Psych: normal affect, no flight of ideas or tangential thought, good eye contact, no pressured speech I reviewed last labs ASSESSMENT: I12.9,N18.3 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) (primary encounter diagnosis) E34.9 Elevated parathyroid hormone M16.11 Primary osteoarthritis of right hip M05.79 Rheumatoid arthritis involving multiple sites with positive rheumatoid factor (HCC) Z51.81 Encounter for therapeutic drug monitoring E78.2 Mixed hyperlipidemia J34.89 Dry nose PLAN: 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) (Primary) Controlled bp now Cont med Arrange nephrology Elevated parathyroid hormone Unclear if from ckd, low 25-oh, will message endocrine, await nephrology evaul Primary osteoarthritis of right hip Stable Rheumatoid arthritis involving multiple sites with positive rheumatoid factor (HCC) Controlled per patient off Arava Mixed hyperlipidemia Declines statin T/c labs 3 months He is active at home, helps RA, will see if helps lipids Dry nose - saline (OCEAN NASAL SPRAY) 0.65 % nasal spray; Administer 2 Sprays into each nostril as needed for Congestion. for nasal dryness or congestion Update 2-3 weeks, if no better, t/c abx or other therapy Follow Up: Return in about 3 months (around 03/19/2019), or if symptoms worsen or fail to improve. William Joseph MD documented in this encounter Nursing Notes * Shila Mayo LPN - 12/17/2018 2:10 PM EDT Chief Complaint Patient presents with Follow Up 2 month return- voices no concerns Would like to discus meds- Arava (possible reaction to it- unexplained weight loss when taking and GI symptoms) and Crestor (doesn't feel it's necessary) documented in this encounter Plan of Treatment Upcoming Encounters Date Type Specialty Care Team Description 12/25/2018 Office Visit Dermatology Lisbeth Dinh MD [address] [place] [facility] [address] [phone] 01/13/2019 Office Visit Nephrology Lisbeth Ward MD [address] [facility] [place] [address] [phone] 02/04/2019 Office Visit Rheumatology Carlos Alberto Matthews MD [address] [place] [address] [phone] 03/24/2019 Office Visit Internal Medicine William Joseph MD [address] [place] [address] [phone] Health Maintenance Due Date Last Done Comments FOBT ANNUALLY,AGES 18-90 03/22/2017 03/22/2016, 09/26 *DEPRESSION SCREENING, ANNUAL FOR PTS 18 AND OVER 08/02/2018 Influenza Vaccine (FLU shot) (#1) 2018 05/22/2018, 06/05/2017, 05/04/2016, Additional history exists CKD GFR USE SMARTSET 72674 05/13/201911/11, 10/22/2018, 05/04/2016, Additional history exists CKD HGB USE SMARTSET 25294 10/23/201910/22, 07/06/2016, 05/04/2016, Additional history exists CKD PHOS USE SMARTSET 67884 10/23/2019 10/22/2018, 1 07/05/2015 DIABETES SCREEN EVERY [...] stage I through stage IV, or unspecified Elevated parathyroid hormone Unspecified endocrine disorder Primary osteoarthritis of right hip Primary localized osteoarthrosis, pelvic region and thigh Rheumatoid arthritis involving multiple sites with positive rheumatoid factor (HCC) Mixed hyperlipidemia Dry nose Other diseases of nasal cavity and sinuses documented in this encounter Advance Directives Documents on File Type Date Recorded Patient Plastics Heat Welder Expl anation Advanced Directive Advanced Directive Advanced Directive Advanced Directive Advanced Directive Advanced Directive Advanced Directive
--- OUTSIDE RECORDS SUMMARY | 2023-01-29 05:10 | External Medical Summary | Summary of Care ---
Author Name Unknown Organization [place] [address] Care Team Providers Care Jewelry Designer Name Role Phone William Chavez MD Primary Care Provider + Reason for Visit * Reason Comments eRx-Medication Refill Encounter Details Date Type Department Care Team Description 07/23/2019 Refill General Internal Medicine [facility] [address] [place] [address] Karla Negro MD [address] [place] [address] Pernicious anemia Allergies No Known Allergiesdocumented as of this encounter (statuses as of 07/23/2019) Medications Medication Sig Dispensed Refills Start Date [...] mouth daily. 30 Cap 11 08/08/2018 Active Cholecalciferol (VITAMIN D-3) 1000 units Capsule [...] mg by mouth daily. Xeljanz AUTH # [id number] VALID DATES: 02/26/19-02/26 60 Tab 5 07/14/2019 Active vitamin b-12 (CYANOCOBALAMIN) 1000 MCG/ML injectionIndication s:Pernicious anemia inject 1ml into a large muscle every month 1 mL 4 07/23/2019 Active vitamin b-12 (CYANOCOBALAMIN) 1000 MCG/ML injectionIndication s:Pernicious anemia Inject 1,000 mcg into a large muscle every 30 days. 1 mL 5 12/09/2018 07/23/2019 Discontinued documented as of this encounter (statuses as of 07/23/2019) Active Problems Problem Noted Date Mixed hyperlipidemia [...] as of this encounter (statuses as of 07/23/2019) Resolved Problems Problem Noted Date Resolved Date History of rheumatoid arthritis 09/04/2017 08/20/2018 History of rheumatoid arthritis 01/06/2016 07/27/2016 Kidney disease, chronic, stage III (GFR 30-59 ml /min) 08/09/2014 07/30/2017 Overview: Per CKD protocol #1 HTN, goal below 140/90 8 Kidney disease, chronic, stage III (GFR 30-59 ml /min) 03/24/2012 documented as of this encounter (statuses as of 07/23/2019) Immunizations Name Administration Dates Next Due Pneumococcal [...] Telephone Encounter - William Chavez MD - 07/23/2019 4:22 PM EST Signed Prescriptions: Disp Refills vitamin b-12 (CYANOCOBALAMIN) 1000 MCG/ML *1 mL 4 Sig: inject 1ml into a large muscle every month Authorizing Provider: WILLIAM CHAVEZ * Telephone Encounter - Maria Del Carmen Pichardo [facility] - 07/23/2019 1:24 PM EST Pending Prescriptions: Disp Refills vitamin b-12 (CYANOCOBALAMIN) 1000 MCG/ML*1 mL 4 Sig: inject 1ml into a large muscle every month * Telephone Encounter - Maria Del Carmen Pichardo [facility] - 07/23/2019 1:23 PM EST Pending Prescriptions: Disp Refills vitamin b-12 (CYANOCOBALAMIN) 1000 MCG/ML*1 mL 4 Sig: inject 1ml into a large muscle every month Last Office Visit: 03/24/2019 Next Office Visit: 09/21/2019 Scheduled Provider(s): William Chavez MD If no future appointments scheduled, and last appointment is greater than a year ago, please schedule patient for a follow-up appointment Last date the medication was ordered: 12/09/2018 Pharmacy: [id number] Is this request for a controlled substance?No Urine Drug Screen:No results found for this or any previous visit. Patient Phone Numbers Labs: Lab Results Component Value Date/Time CREAT 1.35 (A) 11/11/2018 CREAT 1.3 (H) 05/04/2016 12:09 PM POTASSIUM 4.6 05/04/2016 12:09 PM TSH 0.82 06/24/2013 12:14 PM LDLCALC 114 (H) 11/11/2018 LDLCALC 119 05/04/2016 12:09 PM LDLDIRECT 107 06/11/2014 02:22 PM ALT 10 05/04/2016 12:09 PM documented in this encounter Plan of Treatment Upcoming Encounters Date Type Specialty Care Team Description 09/21/2019 Office Visit Internal Medicine William Chavez MD [address] [place] [address] [phone] 10/06/2019 Office Visit Rheumatology OpCarlos Alberto hurley MD [address] [facility] [place] [address] [phone] Health Maintenance Due Date Last Done Comments Zoster Vaccines (2 of 3) 03/07/2015 01/10/2015 FOBT ANNUALLY,AGES 18-90 03/22/2017 03/22/2016, 09/26 CKD GFR USE SMARTSET 66603 05/13/201911/11, 10/22/2018, 05/04/2016, Additional history exists CKD HGB USE SMARTSET 23231 10/23/201910/22, 07/06/2016, 05/04/2016, Additional history exists CKD PHOS USE SMARTSET 54965 10/23/2019 10/22/2018, 1 07/05/2015 DIABETES SCREEN EVERY [...] Documents on File Type Date Recorded Patient Automotive Diagnostic Technician Expl anation Advanced Directive Advanced Directive Advanced Directive Advanced Directive Advanced Directive Advanced Directive Advanced Directive Advanced Directive
--- OUTSIDE RECORDS SUMMARY | 2023-01-29 05:10 | External Medical Summary | Summary of Care ---
Author Name Unknown Organization [place] [address] Care Team Providers Care Dairy Associate Name Role Phone William Joseph MD Primary Care Provider + Reason for Visit * Reason Comments Medication Pre-auth xeljanz Medication Problem Encounter Details Date Type Department Care Team Description 06/24/2019 Telephone Rheumatology [facility] [address] [place] [address] Harry Brooks MD [address] [facility] [place] [address] Medication Pre-auth (xeljanz); Medication ... Allergies [...] mg by mouth daily. Xeljanz AUTH # [id number] VALID DATES: 02/26/19-02/26 60 Tab 5 07/14/2019 Active Tofacitinib Citrate (XELJANZ) 5 MG TABSIndications:Rhe umatoid arthritis involving multiple sites with positive rheumatoid factor (HCC) Take 5 mg by mouth daily. Xeljanz AUTH # [id number] VALID DATES: 02/26/19-02/26 30 Tab 5 03/02/2019 06/24/2019 Discontinued (Refill) Tofacitinib Citrate (XELJANZ) 5 MG TABSIndications:Rhe umatoid arthritis involving multiple sites with positive rheumatoid factor (HCC) Take 5 mg by mouth daily. Xeljanz AUTH # [id number] VALID DATES: 02/26/19-02/26 30 Tab 5 06/24/2019 07/14/2019 Discontinued (Refill) documented as of this encounter [...] encounter Miscellaneous Notes * Addendum Note - Harry Brooks MD - 07/14/2019 4:51 PM EST Addended by: HARRY BROOKS on: 07/14/2019 04:51 PM Modules accepted: Orders * Telephone Encounter - Harry Brooks MD - 07/14/2019 4:51 PM EST New script sent for 60 pills * Telephone Encounter - Ronda Cisneros training engineer - 07/14/2019 4:14 PM EST [facility] Specialty pharmacy calling regarding Pt's Tofacitinib Citrate (XELJANZ) 5 MG TABS script The Rep stated the medication in stock comes in a 60 tab bottle. They are unable to separate 30 Tabs from a bottle. The Rep is requesting a new script with a Qty of 60 Tabs for the full bottle. Any questions please contact [facility] at [phone] If provider agreeable please e-scribe new script to the pharmacy [address] [place] Thank You, Ronda Cisneros [facility] 07/14/2019, 4:16 PM * Telephone Encounter - Harry Brooks MD - 06/24/2019 3:39 PM EST signed * Telephone Encounter - Aretha Ugarte LPN - 06/24/2019 3:26 PM EST Just send a new rx to them, his auth is still good AUTH # [id number] VALID DATES: 02/26/19-02/26/2021 Maybe they tried to call him and he didn't answer??? * Telephone Encounter - Harry Brooks MD - 06/24/2019 1:55 PM EST xeljanz was approved last fall. Patient reports he never received xeljanz. It was sent to [facility] specialty pharmacy back in February 2019 documented in this encounter Plan of Treatment Upcoming Encounters Date Type Specialty Care Team Description 09/21/2019 Office Visit Internal Medicine William Joseph MD [address] [address] [phone] 10/06/2019 Office Visit Rheumatology Harry Brooks MD [address] [facility] [place] [address] [phone] Health Maintenance Due Date Last Done Comments Zoster Vaccines (2 of 3) 03/07/2015 01/10/2015 FOBT ANNUALLY,AGES 18-90 03/22/2017 03/22/2016, 09/26 CKD GFR USE SMARTSET 70086 05/13/201911/11, 10/22/2018, 05/04/2016, Additional history exists CKD HGB USE SMARTSET 83387 10/23/201910/22, 07/06/2016, 05/04/2016, Additional history exists CKD PHOS USE SMARTSET 53969 10/23/2019 10/22/2018, 1 07/05/2015 DIABETES SCREEN EVERY [...] Documents on File Type Date Recorded Patient Computer Systems Software Engineer Expl anation Advanced Directive Advanced Directive Advanced Directive Advanced Directive Advanced Directive Advanced Directive Advanced Directive Advanced Directive
--- OUTSIDE RECORDS SUMMARY | 2023-01-29 05:10 | External Medical Summary | Summary of Care ---
Author Name Unknown Organization [place] [address] Care Team Providers Care Cemetery Laborer Name Role Phone William Joseph MD Primary Care Provider + Reason for Visit * Reason Comments Pre Cert/Prior Auth xeljanz 5mg Encounter Details Date Type Department Care Team Description 02/26/2019 Telephone Rheumatology [facility] [address] [facility] [place] [address] Carlos Alberto Matthews MD [address] [place] [address] Pre Cert/Prior Auth (xeljanz 5mg ) Allergies No Known Allergiesdocumented as of this encounter (statuses as of 03/02/2019) Medications Medication Sig Dispensed Refills Start Date [...] mg by mouth daily. Xeljanz AUTH # [id number] VALID DATES: 02/26/19- 1 30 Tab 5 03/02/2019 Active documented as of this encounter (statuses as of 03/02/2019) Active Problems Problem Noted Date Mixed hyperlipidemia [...] as of this encounter (statuses as of 03/02/2019) Resolved Problems Problem Noted Date Resolved Date History of rheumatoid arthritis 09/04/2017 08/20/2018 History of rheumatoid arthritis 01/06/2016 07/27/2016 Kidney disease, chronic, stage III (GFR 30-59 ml /min) 08/09/2014 07/30/2017 Overview: Per CKD protocol #1 HTN, goal below 140/90 8 Kidney disease, chronic, stage III (GFR 30-59 ml /min) 03/24/2012 documented as of this encounter (statuses as of 03/02/2019) Immunizations Name Administration Dates Next Due Pneumococcal [...] Encounter - Carlos Alberto Matthews MD - 03/02/2019 11:34 AM EDT signed * Telephone Encounter - Aretha Ugarte LPN - 03/02/2019 11:10 AM EDT Xeljanz AUTH # [id number] VALID DATES: 02/26/19-02/26/2021, supplied by [facility] Specialty pharmacy, please sign Rx * Telephone Encounter - Aretha Ugarte LPN - 02/26/2019 11:42 AM EDT Please auth, thx * Telephone Encounter - Carlos Alberto Matthews MD - 02/26/2019 11:04 AM EDT Can be look into coverage for Xeljanz 5 mg daily for his rheumatoid arthritis. He has been intolerant to methotrexate and leflunomide. documented in this encounter Plan of Treatment Upcoming Encounters Date Type Specialty Care Team Description 03/24/2019 Office Visit Internal Medicine William Joseph MD [address] [facility], [place] [id number] 05/11/2019 Office Visit Nephrology Lisbeth Ward MD [address] [place] [address] 06/24/2019 Office Visit Rheumatology Carlos Alberto Matthews MD [address] [facility], [place] [id number] Health Maintenance Due Date Last Done Comments FOBT ANNUALLY,AGES 18-90 03/22/2017 03/22/2016, 09/26 Influenza Vaccine (FLU shot) (#1) 2019 05/22/2018, 06/05/2017, 05/04/2016, Additional history exists CKD GFR USE SMARTSET 30029 05/13/201911/11, 10/22/2018, 05/04/2016, Additional history exists CKD HGB USE SMARTSET 89052 10/23/201910/22, 07/06/2016, 05/04/2016, Additional history exists CKD PHOS USE SMARTSET 12425 10/23/2019 10/22/2018, 1 07/05/2015 DIABETES SCREEN EVERY [...] Documents on File Type Date Recorded Patient Engraving Operator Expl anation Advanced Directive Advanced Directive Advanced Directive Advanced Directive Advanced Directive Advanced Directive Advanced Directive
--- OUTSIDE RECORDS SUMMARY | 2023-01-29 05:10 | External Medical Summary | Summary of Care ---
Author Name Unknown Organization [place] [address] Care Team Providers Care Media Promoter Name Role Phone William Joseph MD Primary Care Provider + Reason for Visit * Reason Comments Re-Check Medication Discussion blood pressure med ication and swelling in feet Other bronchiectasis - sta brandan he uses steroid inhaler twice daily - discuss possible infection Cough productive for white mucous Immunizations Shingrix Encounter Details Date Type Department Care Team Description 08/10/2019 Office Visit General Internal Medicine [facility] [address] [place] [address] William Joseph MD [address] [place] [address] 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 Xeljanz AUTH # [id number] VALID DATES: 02/26/19-02/27/20 21 60 Tab 5 07/14/2019 Active Additional Information Patient not taking. Reported on 08/10/2019 10:16 AM vitamin b-12 (CYANOCOBALAMIN) 1000 MCG/ML injectionIndicatio ns:Pernicious anemia inject 1ml into a large muscle every month 1 mL 4 07/23/2019 Active Cholecalciferol (VITAMIN D3) 50 MCG (2000 UT) Tablet Take 2,000 Units by mouth daily. 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 30 Cap 11 08/08/2018 08/10/2019 Discontinue d(Medicatio n/Dose Changed) Cholecalciferol (VITAMIN D-3) 1000 units Capsule Take 1 Cap by mouth daily. 0 12/17/2018 08/10/2019 Discontinue d(Patient preference/ discontinua tion) documented as [...] Sign Reading Time Taken Comments Blood Pressure 148/80 08/10/2019 10:43 AM EDT Pulse 72 08/10/2019 10:16 AM EDT Temperature 36.5 C (97.7 F) 08/10/2019 1 0:16 AM EDT Respiratory Rate 16 08/10/2019 10:1 6 AM EDT Oxygen Saturation - - Inhaled Oxygen Concentration - - Weight 83.8 kg (184 lb 12.8 oz) 020 10:16 AM EDT Height - - Body Mass Index 28.94 12/17/2018 2:11 PM EDT documented in this encounter Progress Notes * William Joseph MD - 08/10/2019 10:54 AM EDT Chief Complaint Patient presents with Re-Check Medication Discussion blood pressure medication and swelling in feet Other bronchiectasis - states he uses steroid inhaler twice daily - discuss possible infection Cough productive for white mucous Immunizations Shingrix SUBJECTIVE: Ignacio Garcia is a 74 year old male with PMH as below who presents for f/u bronchiectasis, htn, ckdIII, RA. Feels well overall. Slight cough white sputum w/o sob, lloyd, uses inhaler which helps. No fevers, chills or travel. Cough is ongoing, declined work up/imaging in past. BP controlled at home, hasn't been checking as much. Feels norvasc causing edema in ankles/foot. Stopped med in past and edema stopped. Would like to switch meds. As for ckd, sees Dr. Ward, due for labs. He would like to get labs I have due as well. Mood is good, some anxiety with COVID, but handling it ok. Feels RA controlled, stopped Xeljanz on own and symptoms ok - wants immune system to be working fine. Patient Active Problem List Diagnosis Code Encounter [...] Medications Medication Sig Dispense Refill Benazepril HCl (LOTENSIN) 40 MG Tablet Take 1 Tab by mouth daily. 30 Tab 11 Cholecalciferol (VITAMIN D3) 50 MCG (2000 UT) Tablet Take 2,000 Units by mouth daily. vitamin b-12 (CYANOCOBALAMIN) 1000 MCG/ML injection inject 1ml into a large muscle every month 1 mL 4 fluticasone (FLOVENT HFA) 44 MCG/ACT inhaler Inhale 1 Puff by mouth 2 times a day. 10.6 g 4 predniSONE (DELTASONE) 5 MG Tablet Take 1 Tab by mouth daily. 30 Tab 1 benzonatate (TESSALON PERLES) 100 MG Capsule Take 1 Cap by mouth 2 times a day as needed for Cough. Do not cut, crush, or chew. 50 Cap 1 Tofacitinib Citrate (XELJANZ) 5 MG TABS Take 5 mg by mouth daily. Xeljanz AUTH # [id number] VALIDDATES: 02/26/19-02/26/2021 (Patient not taking: Reported on 08/10/2019) 60 Tab 5 Review of patient's allergies indicates: No Known Allergies Health Maintenance Due Topic Date Due Zoster Vaccines (2 of 3) 03/07/2015 FOBT ANNUALLY,AGES 18-90 03/22/2017 CKD GFR USE SMARTSET 11594 05/13/2019 ROS: CONSTITUTIONAL: No change in weight, No weakness and No fevers, sweats, or chills EYE: No recent significant change in vision, No eye pain, redness, discharge and No diplopia NOSE: No history of frequent colds or sinusitis and No significant epistaxis MOUTH: No bleeding gums, No thrush or No sore throat NECK: No lumps or masses and No swollen glands PULMONARY: No shortness of breath and No recent change in breathing CARDIOVASCULAR: No chest pain, No shortness of breath, No dyspnea on exertion, No orthopnea, No paroxysmal nocturnal dyspnea, No palpitations and No syncope MALE: +ed at times "not all the time, just sometimes" EXTREMITIES: No pain, redness or swelling on the joints SKIN/INTEGUMENTARY No itching NEUROLOGIC: No seizures and No weakness PSYCHIATRIC: No psychosis All OTHER SYSTEMS NEGATIVE EXCEPT STATED IN HPI ABOVE, OVER 10 SYSTEMS REVIEWED I reviewed social, PMH, PSH, and family history and updated where needed. 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 Employer: [employer] Social Needs Financial resource strain: Not on file Food insecurity: Worry: Never true Inability: Never true Transportation needs: Medical: Not on file Non-medical: Not on file Tobacco Use Smoking status: Former Smoker Packs/day: 2.00 Years: 35.00 Pack years: 70.00 Types: Cigarettes Last attempt to quit: 06/25/1990 Years since quittin.1 Smokeless tobacco: Never Used Substance and Sexual [...] file Gets together: Not on file Attends sabianist service: Not on file Active member of [...] Mother Hypertension Mother OBJECTIVE: PHYSICAL EXAM: BP 148/80 | Pulse 72 | Temp (Src) 97.7 (Tympanic) | Resp 16 | Wt 184 lbs 12.8 oz (83.825kg) | BMI 28.94 kg/m | BSA 1.99 m General: alert, healthy and no distress Head: Normocephalic, No masses, lesions, tenderness or abnormalities Eye Exam: PERRLA, Conjunctiva are pink and non-injected, sclera clear Ears: External ears normal, Canals clear, TM's Normal Nose: no mucosal erythema, no mucosal edema, no purulent discharge Oropharynx: no exudate, lips, buccal mucosa, and tongue normal, mucous membranes are moist and milderythema Heart: regular rate & rhythm, no murmurs, no gallops, PMI non-displaced, S-1 normal and S-2 normal Lungs: normal respiratory rate and rhythm, lungs clear to auscultation Abdomen: abdomen soft, non-tender, normal bowel sounds and no masses or organomegaly Extremities: +trace edema ankles, no clubbing, no cyanosis Neuro Exam: gait normal Psych: normal affect, no flight of ideas or tangential thought, good eye contact, no pressured speech I reviewed last labs ASSESSMENT: I12.9,N18.3 Benign hypertension with CKD (chronic kidney disease) stage III ([facility]) (primary encounter diagnosis) J47.9 Bronchiectasis ([facility]) M05.79 Rheumatoid arthritis involving multiple sites with positive rheumatoid factor ([facility]) I71.2 Thoracic aortic aneurysm ([facility]) E78.2 Mixed hyperlipidemia D51.0 Pernicious anemia E04.1 Thyroid nodule N25.81 Secondary hyperparathyroidism ([facility]) N52.9 Erectile dysfunction, unspecified erectile dysfunction type PLAN: Benign hypertension with CKD (chronic kidney disease) stage III ([facility]) (Primary) - Benazepril HCl (LOTENSIN) 40 MG Tablet; Take 1 Tab by mouth daily. Cont f/u nephrology Labs 1-2 week as ordered by me and nephrology Stop norvasc, increase lotensin. Discussed arb due to cough with acei, he assures me doesn't have cough from acei Follow Bronchiectasis ([facility]) Discussed x-ray, imaging to assess, again declines Cont inhaler He will let me know about imaging Rheumatoid arthritis involving multiple sites with positive rheumatoid factor (HCC) Follow off med Thoracic aortic aneurysm (HCC) Declined CT Mixed hyperlipidemia - LIPID PANEL WITH DIRECT LDL IF TRIGLYCERIDE IS ELEVATED - HEP FUNCTION PANEL Recheck Pernicious anemia - VITAMIN B12 Thyroid nodule U/s next month Secondary hyperparathyroidism (HCC) F/u nephrology Erectile dysfunction, unspecified erectile dysfunction type Check labs Hold med till labs, better bp control given not all the time Follow Up: Return in about 1 month (around 09/10/2019) for bp check with nurse Dr. Wilkinson in 6 months . William Joseph MD documented in this encounter Nursing Notes * Kelvin Simon RN - 08/10/2019 10:14 AM EDT Chief Complaint Patient presents with Re-Check Medication Discussion blood pressure medication and swelling in feet Other bronchiectasis - states he uses steroid inhaler twice daily - discuss possible infection Cough productive for white mucous documented in this encounter Plan of Treatment Upcoming Encounters Date Type Specialty Care Team Description 09/10/2019 Nurse Only Ancillary Nurse, Int Med [address] [place], [place] [address] [phone] 10/06/2019 Office Visit Rheumatology Carlos Alberto Matthews MD [address] [facility] [place] [address] [phone] 02/11/2020 Office Visit Internal Medicine William Joseph MD [address] [place] [address] [phone] Scheduled Orders Name Type Priority Associated Diagnoses Orde r Schedule LIPID PANEL WITH DIRECT LDL IF TRIGLYCERIDE IS ELEVATED Lab Routine Mixed hyperlipidemia Ordered: 08/10/2019 HEP FUNCTION PANEL Lab Routine Mixed hyperlipidemia Ordered: 08/10/2019 VITAMIN B12 Lab Routine Pernicious anemia Ordered: 08/10/2019 Health Maintenance Due Date Last Done Comments Zoster Vaccines (2 of 3) 03/07/2015 01/10/2015 FOBT ANNUALLY,AGES 18-90 03/22/2017 03/22/2016, 09/26 CKD GFR USE SMARTSET 75393 05/13/201911/11, 10/22/2018, 05/04/2016, Additional history exists CKD HGB USE SMARTSET 18017 10/23/201910/22, 07/06/2016, 05/04/2016, Additional history exists CKD PHOS USE SMARTSET 49945 10/23/2019 10/22/2018, 1 07/05/2015 DIABETES SCREEN EVERY [...] I through stage IV, or unspecified Bronchiectasis (HCC) Bronchiectasis without acute exacerbation Rheumatoid arthritis involving multiple sites with positive rheumatoid factor (HCC) Thoracic aortic aneurysm (HCC) Thoracic aneurysm without mention of rupture Mixed hyperlipidemia Pernicious anemia Thyroid nodule Nontoxic uninodular goiter Secondary hyperparathyroidism (HCC) Secondary hyperparathyroidism (of renal origin) Erectile dysfunction, unspecified erectile dysfunction type documented in this encounter Advance Directives Documents on File Type Date Recorded Patient Shipping Order Clerk Expl anation Advanced Directive Advanced Directive Advanced Directive Advanced Directive Advanced Directive Advanced Directive Advanced Directive Advanced Directive Advanced Directive
--- OUTSIDE RECORDS SUMMARY | 2023-01-29 05:10 | External Medical Summary | Summary of Care ---
Author Name Unknown Organization [facility] [address] Care Team Providers Care Cookie Padder Name Role Phone William Joseph MD Primary Care Provider + Reason for Visit * Reason Comments Medication Pre-auth xeljanz Medication Problem Encounter Details Date Type Department Care Team Description 06/24/2019 Telephone Rheumatology [facility] [address] [place] [address] Carlos Alberto Matthews MD [address] [facility] [place] [address] Medication Pre-auth (xeljanz); Medication ... Allergies [...] mg by mouth daily. Xeljanz AUTH # [id number] VALID DATES: 02/26/19-02/26 30 Tab 5 06/24/2019 Active Tofacitinib Citrate (XELJANZ) 5 MG TABSIndications:Rhe umatoid arthritis involving multiple sites with positive rheumatoid factor (HCC) Take 5 mg by mouth daily. Xeljanz AUTH # [id number] VALID DATES: 02/26/19-02/26 30 Tab 5 03/02/2019 [...] Notes * Telephone Encounter - Ronda Cisneros, tyre retreader - 07/14/2019 4:14 PM EST [facility] Specialty pharmacy calling regarding Pt's Tofacitinib Citrate (XELJANZ) 5 MG TABS script The Rep stated the medication in stock comes in a 60 tab bottle. They are unable to separate 30 Tabs from a bottle. The Rep is requesting a new script with a Qty of 60 Tabs for the full bottle. Any questions please contact [facility] Pharmacy at [phone] If provider agreeable please e-scribe new script to the pharmacy E [facility] [address] Thank You, Ronda Cisneros Manufacturing Shift Supervisor Refill Call Center 07/14/2019, 4:16 PM * Telephone Encounter - Carlos Alberto Matthews MD - 06/24/2019 3:39 PM EST signed * Telephone Encounter - Aretha Ugarte LPN - 06/24/2019 3:26 PM EST Just send a new rx to them, his auth is still good AUTH # [id number] VALID DATES: 02/26/19-02/26/2021 Maybe they tried to call him and he didn't answer??? * Telephone Encounter - Carlos Alberto Matthews MD - 06/24/2019 1:55 PM EST xeljanz was approved last fall. Patient reports he never received xeljanz. It was sent to [facility] specialty pharmacy back in February 2019 documented in this encounter Plan of Treatment Upcoming Encounters Date Type Specialty Care Team Description 09/21/2019 Office Visit Internal Medicine William Joseph MD [address] [facility] [address] [phone] 10/06/2019 Office Visit Rheumatology Carlos Alberto Matthews MD [address] [place] [address] [phone] Health Maintenance Due Date Last Done Comments Zoster Vaccines (2 of 3) 03/07/2015 01/10/2015 FOBT ANNUALLY,AGES 18-90 03/22/2017 03/22/2016, 09/26 CKD GFR USE SMARTSET 16393 05/13/201911/11, 10/22/2018, 05/04/2016, Additional history exists CKD HGB USE SMARTSET 99720 10/23/201910/22, 07/06/2016, 05/04/2016, Additional history exists CKD PHOS USE SMARTSET 13694 10/23/2019 10/22/2018, 1 07/05/2015 DIABETES SCREEN EVERY [...] Documents on File Type Date Recorded Patient Locomotive Lubricating Systems Clerk Expl anation Advanced Directive Advanced Directive Advanced Directive Advanced Directive Advanced Directive Advanced Directive Advanced Directive Advanced Directive
--- OUTSIDE RECORDS SUMMARY | 2023-01-29 05:10 | External Medical Summary | Summary of Care ---
Author Name Unknown Organization [place] [address] Care Team Providers Care Door Paneler Name Role Phone William Joseph MD Primary Care Provider + Reason for Visit * Reason Comments Re-Check Medication Discussion blood pressure med ication and swelling in feet Other bronchiectasis - sta brandan he uses steroid inhaler twice daily - discuss possible infection Cough productive for white mucous Immunizations Shingrix Encounter Details Date Type Department Care Team Description 08/10/2019 Office Visit General Internal Medicine [facility] [address] [place] [address] William Joseph MD [address] [place] [address] Benign hypertension with CKD (chronic kidney [...] mg by mouth daily. Xeljanz AUTH # [id number] VALID DATES: 02/26/19-02/27/20 21 60 Tab 5 [...] mg by mouth daily. 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 Employer: [employer] Social Needs Financial resource strain: Not on [...] file Gets together: Not on file Attends hindu service: Not on file Active member of [...] with CKD (chronic kidney disease) stage III ([facility]) (primary encounter diagnosis) J47.9 Bronchiectasis ([facility]) M05.79 Rheumatoid arthritis involving multiple sites with positive rheumatoid factor ([facility]) I71.2 Thoracic aortic aneurysm ([facility]) E78.2 Mixed hyperlipidemia D51.0 Pernicious anemia E04.1 Thyroid nodule N25.81 Secondary hyperparathyroidism ([facility]) N52.9 Erectile dysfunction, unspecified erectile dysfunction type PLAN: Benign hypertension with CKD (chronic kidney disease) stage III ([facility]) (Primary) - Benazepril HCl (LOTENSIN) 40 MG Tablet; Take 1 Tab by mouth daily. Cont f/u nephrology Labs 1-2 week as ordered by me and nephrology Stop norvasc, increase lotensin. Discussed arb due to cough with acei, he assures me doesn't have cough from acei Follow Bronchiectasis ([facility]) Discussed x-ray, imaging to assess, [...] Ancillary Nurse, Int Med [address] [place], [place] [address] [phone] 10/06/2019 Office Visit Rheumatology Carlos Alberto Matthews MD [address] [facility] [place] [address] [phone] 02/11/2020 Office Visit Internal Medicine William Joseph MD [address] [place] [address] [phone] Scheduled Orders Name Type Priority Associated Diagnoses [...] 03/22/2017 03/22/2016, 09/26 CKD GFR USE SMARTSET 27797 05/13/201911/11, 10/22/2018, 05/04/2016, Additional history exists CKD HGB USE SMARTSET 45057 10/23/201910/22, 07/06/2016, 05/04/2016, Additional history exists CKD PHOS USE SMARTSET 55165 10/23/2019 10/22/2018, 1 07/05/2015 DIABETES SCREEN EVERY [...] Documents on File Type Date Recorded Patient Executive Director Contract Shop Expl anation Advanced Directive Advanced Directive Advanced Directive Advanced Directive Advanced Directive Advanced Directive Advanced Directive Advanced Directive Advanced Directive
--- OUTSIDE RECORDS SUMMARY | 2023-01-29 05:11 | External Medical Summary | Summary of Care ---
Author Name Unknown Organization [place] [address] Care Team Providers Care Cork Insulation Setter Name Role Phone William Joseph MD Primary Care Provider + Reason for Visit * Reason Comments Rheum Follow Up return visit c/o" singer ving a bad flare" Encounter Details Date Type Department Care Team Description 07/14/2018 Office Visit Rheumatology [facility] [address] [place] [address] Harry Brooks MD [address] [place] [address] [place] [address] Nurse Andra Shaffer Rheumatology [address] [address] [phone] Rheumatoid arthritis involving multiple sites with positive rheumatoid factor (HCC)*; Bronchiectasis without complication (HCC) Allergies No Known Allergiesdocumented as of this encounter (statuses as of 07/14/2018) Medications Medication Sig Dispensed Refills Start Date End Date Status amlodipine-benazepril 5-20 mg per cap (LOTREL) 5-20 MG per capsuleIndications:Abraham gn hypertension 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) Take 1 Cap by mouth daily. 30 Cap 11 07/30/2017 Active fluticasone (FLOVENT HFA) 44 MCG/ACT inhalerIndications:Bron chiectasis (HCC) Inhale 1 Puff by mouth 2 times a day. 10.6 g 4 05/07/2018 Active vitamin b-12 (CYANOCOBALAMIN) 1000 MCG/ML injectionIndications:Pe rnicious anemia Inject 1,000 mcg into a large muscle every 30 days. 1 mL 5 05/07/2018 Active benzonatate (TESSALON PERLES) 100 MG CapsuleIndications:Coug h Take 1 Cap by mouth 2 times a day as needed for Cough. Do not cut, crush, or chew. 50 Cap 1 06/03/2018 Active PredniSONE (DELTASONE) 5 MG TabletIndications:H/O rheumatoid arthritis Take 1 Tab by mouth daily. 30 Tab 1 06/05/2018 Active leflunomide (ARAVA) 10 MG Tablet Take 1 Tab by mouth daily. 30 Tab 5 07/14/2018 Active documented as of this encounter (statuses as of 07/14/2018) Active Problems Problem Noted Date Rheumatoid arthritis involvi ng multiple sites with positive rheumatoid factor 06/11/2018 Primary osteoarthritis of right hip 11/24 History of rheumatoid arthritis 09/05/19 18 Generalized osteoarthritis 09/04/2017 Bunion, left foot 09/04/2017 Benign hypertension with CKD (chronic ki dney disease) stage III 07/30/2017 Bronchiectasis 12/08/2013 Thoracic aortic aneurysm 12/08/2013 Pernicious anemia 08/24/2010 documented as of this encounter (statuses as of 07/14/2018) Resolved Problems Problem Noted Date Resolved Date History of rheumatoid arthritis 01/06/2016 07/27/2016 Kidney disease, chronic, stage III (GFR 30-59 ml /min) 08/09/2014 07/30/2017 Overview: Per CKD protocol #1 Encounter for long-term (current) use of medicat ions 07/27/2010 01/06/2016 Overview: ICD-10 update of inactive term HTN, goal below 140/90 8 Kidney disease, chronic, stage III (GFR 30-59 ml /min) 03/24/2012 documented as of this encounter (statuses as of 07/14/2018) Immunizations Name Dates Previously Given Next Due Pneumococcal Conjugate Vacc, 13 Valent (Prevnar) 07/13/2015 Pneumococcal Polysaccharide PPV23 (Pneumovax) 06/08/2013,03/19/2013(Deferred: Patient Refused - not interested) Seasonal Influenza, Quadriva lent, No Preserve, 6 Mons & Above, IM 05/22/2018 Seasonal Influenza, Quadriva lent, No Preserve, IM 05/04/2016 Seasonal Influenza, Trivalen t, with Preserve, 3yr & Above, Split 06/05/2017,06/12/2015,06/01/2014,,03/19/2013(Deferred: Patient Refused - not interested) TDAP (age 10 and older)(Boostrix) 01/10/2015 Varicella Zoster Vaccine (Adult) 01/10/2015 documented as of this encounter Social History Tobacco Use Types Packs/Day Years Used Date Former Smoker Cigarettes 2 35 Quit: 06/25 Smokeless Tobacco: Never Used Alcohol Use Drinks/Week oz/Week Comments Yes 7 Mixed drink(s) containing 1.5 shots of alcohol 3.5 occas sional Sex Assigned at Date Recorded Not on file Job Start Date Occupation Industry Not on file Not on file Not on file Travel History Travel Start Travel End documented as of this encounter Last Filed Vital Signs Vital Sign Reading Time Taken Blood Pressure 140/80 07/14/2018 3:45 PM EST Pulse - - Temperature 36.2 C (97.1 F) 07/14/2018 3 :45 PM EST Respiratory Rate - - Oxygen Saturation - - Inhaled Oxygen Concentration - - Weight 83.5 kg (184 lb) 07/14/2018 3:45 PM EST Height - - Body Mass Index 27.17 07/14/2018 3:45 PM EST documented in this encounter Progress Notes * Harry Brooks MD - 07/14/2018 5:02 PM EST Progress Notes Today's Visit Note 07/14/2018 Harry Brooks MD Assessment Diagnosis Comment Rheumatoid arthritis involving multiple sites with positive rheumatoid factor (HCC) Bronchiectasis (HCC) (M05.79) Rheumatoid arthritis involving multiple sites with positive rheumatoid factor (HCC) (primary encounter diagnosis) (J47.9) Bronchiectasis without complication (HCC) Comment Having increasing rheumatoid arthritis symptoms off all therapy except for prednisone. Requiring 15-20 mg of prednisone for several days in a row now. At last visit talked about Plaquenil butgiven his presentation likely will start off with leflunomide. If fails would move on to biologic therapy. Plan 1. Trial leflunomide 10 mg daily 2. Taper prednisone as before 3. Labs in 1 month 4. If fails leflunomide would move to either combination oral therapy versus biologic therapy 5. Return to clinic in september History "Mr. Garcia is a 73 year old man last seen in Rheumatology today (07-14-18). He has h/o 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), Bronchiectasis (HCC), Pernicious anemia, Bunion, left foot, Generalized osteoarthritis, History of rheumatoid arthritis, and Primary osteoarthritis of right hip, due for eval of Rheumatoid arthritis involving multiple sites with positive rheumatoid factor (HCC)." Temporary History he has been having increasing arthritis recently. emailed me recently because of worsening arthritis issues and wanting to get back on some type of therapy. He reports using prednisone every few daysbecause of his arthritis complaints. he is taking 15-20mg daily. he has never really tolerated MTX in the past. his bronchiectasis has been stable. no chronic infections. he currently has swelling tohis right knee, right wrist. his right arm is the worse area for him. pain today is 8/10. his am stiffness is not bad. Permanent History diagnosed with RA in 2001 but now burnt out, off DMARD therapy Condition Summary Date Description 06/11/2018 RHEUMATOLOGY [facility] with Dr. Brooks (Rheumatoid arthritis involving multiple sites with positive rheumatoid factor (HCC)) Review of Systems (ROS) ROS Symptoms General None HEENT None MS/Neuro Joint pain, Joint swelling Skin None Cardiopulmonary Chronic cough Gastrointestinal None [...] Puff by mouth 2 times a day. 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 Multiple tender joints especially the MCPs and right wrist right knee Eyes PERRLA, conjunctiva pink and non-injected, sclera clear HENT normocephalic, atraumatic, normal nasal and oropharyngeal mucosa Lymph Nodes no lymphadenopathy Heart regular rate and rhythm, no murmurs or rubs Lungs Coarse breath sounds noted but no rhonchi eyes are wheezes Abdomen soft, normal bowel sounds, no masses or organomegaly Outcome Measures Measure Today Previous MDHAQ 2.33 07/14/2018 0.67 06/11/2018 Pain 7 07/14/2018 6 06/11/2018 Fatigue 2 07/14/2018 0 06/11/2018 Stiffness 2 07/14/2018 0 06/11/2018 Patient Global 6 07/14/2018 2 06/11/2018 Rapid3 15.33 07/14/2018 8.67 06/11/2018 Tender Score 10 07/14/2018 0 06/11/2018 Swollen Score 2 07/14/2018 0 06/11/2018 Physician Global Score 5 07/14/2018 2 06/11/2018 Patient Global Score 6 07/14/2018 2 06/11/2018 CDAI 23 07/14/2018 4 06/11/2018 Care Gaps As Of 07/14/2018 Physician open RA on DMARD RA, Not [...] - Provider Goal Measure Current Target CDAI 23 10 Opportunity Patient no T2T changes required No T2T changes required - treatment changes if any per Plant Operations Worker discretion Signature HARRY BROOKS documented in this encounter Nursing Notes * Fani Hickman LPN - 07/14/2018 3:45 PM EST Chief Complaint Patient presents with Rheum Follow Up return visit c/o" having a bad flare" documented in this encounter Plan of Treatment Upcoming Encounters Date Type Specialty Care Team Description 08/20/2018 Office Visit Internal Medicine William Joseph MD [address] [facility] [place] [address] [phone] 10/08/2018 Office Visit Rheumatology Harry Brooks MD [address] [facility], [place] [id number] [place], Nurse Andra [facility] [place] [address] [facility], [place] [id number] Scheduled Tests Name Priority Associated Diagnoses Order S chedule CBC/DIFF Routine Rheumatoid arthritis involving multiple sites with positive rheumatoid factor (HCC) Ordered: 07/14/2018 COMPR METAB PANEL Routine Rheumatoid arthritis involving multiple sites with positive rheumatoid factor (HCC) Ordered: 07/14/2018 M TUBERCULOSIS (QUANTIFERON) Routine Rheumatoid arthritis involving multiple sites with positive rheumatoid factor (HCC) Ordered: 07/14/2018 Health Maintenance Due Date Last Done Comments CKD GFR USE SMARTSET 96677 11/02/201605/04, 06/11/2014, 01/01/2014, Additional history exists FOBT ANNUALLY,AGES 18-90 03/22/2017 03/22/2016, 09/26 CKD PHOS USE SMARTSET 66857 05/04/2017 05/04/2016 *BASIC METABOLIC PANEL (BMP) FOR HTN YEARLY 05/07/2017 CKD HGB USE SMARTSET 35852 07/06/201707/06, 05/04/2016, 01/01/2014, Additional history exists DIABETES SCREEN EVERY 3 YRS-AGE 45 AND ABOVE 05/04/2019 05/04/2016, 06/11/2014, 01/01/2014, Additional history exists DTaP,Tdap,and Td Vaccines (2 - Td) 01/10/2025 01/10/2015 PNEUMOCOCCAL ADULT 65 YRS AND OVER Completed 07/13/2015, 06/08/2013 Influenza Vaccine (FLU shot) Completed , 06/05/2017, 05/04/2016, Additional history exists MENINGOCOCCAL (MENACTRA) Aged Out No longer eligible based on patient's age to complete this topic documented as of this encounter Implants Not on filedocumented as of this encounter Visit Diagnoses Diagnosis Rheumatoid arthritis involving multiple sites with positive rheumatoid factor (HCC)- Primary Bronchiectasis without complication (HCC) Bronchiectasis without acute exacerbation documented in this encounter Advance Directives Patient has advance care planning documents on file. For more information, please contact: LAYA Hoffman [phone]
--- OUTSIDE RECORDS SUMMARY | 2023-01-29 05:11 | External Medical Summary | Summary of Care ---
Author Name Unknown Organization [place] [address] Care Team Providers Care Engineering Aide Name Role Phone William Joseph MD Primary Care Provider + Reason for Referral * (Routine) Status Reason Specialty Diagnoses / Procedures Referred By Contact Referred To Contact Pending Review Diagnoses Kidney disease, chronic, stage III (GFR 30-59 ml/min) (HCC) Procedures RENAL William Joseph MD [address] [place] [address] Reason for Visit * Reason Comments Test Results Encounter Details Date Type Department Care Team Description 10/29/2018 Telephone General Internal Medicine [facility] [address] [place], [place] [id number] William Joseph MD [address] [place] [id number] Test Results Allergies No Known Allergiesdocumented as of this encounter (statuses as of 11/04/2018) Medications Medication Sig Dispensed Refills Start Date End Date Status fluticasone (FLOVENT HFA) 44 MCG/ACT inhalerIndications:Bron hiectasis (HCC) Inhale 1 Puff by mouth 2 times a day. 10.6 g 4 05/07/2018 Active vitamin b-12 (CYANOCOBALAMIN) 1000 MCG/ML injectionIndications:Per nicious anemia Inject 1,000 mcg into a large muscle every 30 days. 1 mL 5 05/07/2018 Active benzonatate (TESSALON PERLES) 100 MG CapsuleIndications:Cough Take 1 Cap by mouth 2 times a day as needed for Cough. Do not cut, crush, or chew. 50 Cap 1 06/03/2018 Active PredniSONE (DELTASONE) 5 MG TabletIndications:H/O rheumatoid arthritis Take 1 Tab by mouth daily. 30 Tab 1 06/05/2018 Active leflunomide (ARAVA) 10 MG Tablet Take 1 Tab by mouth daily. 30 Tab 5 07/14/2018 Active amlodipine-benazepril 5-20 mg per cap (LOTREL) 5-20 MG per capsuleIndications:Benig n hypertension 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) Take 1 Cap by mouth daily. 30 Cap 11 08/08/2018 Active rosuvastatin (CRESTOR) 10 MG TabletIndications:Mixed hyperlipidemia Take 1 Tab by mouth daily. 30 Tab 5 10/29/2018 Active documented as of this encounter (statuses as of 11/04/2018) Active Problems Problem Noted Date Rheumatoid arthritis [...] as of this encounter (statuses as of 11/04/2018) Resolved Problems Problem Noted Date Resolved Date History of rheumatoid arthritis 09/04/2017 08/20/2018 History of rheumatoid arthritis 01/06/2016 07/27/2016 Kidney disease, chronic, stage III (GFR 30-59 ml /min) 08/09/2014 07/30/2017 Overview: Per CKD protocol #1 HTN, goal below 140/90 8 Kidney disease, chronic, stage III (GFR 30-59 ml /min) 03/24/2012 documented as of this encounter (statuses as of 11/04/2018) Immunizations Name Administration Dates Next Due Pneumococcal [...] Telephone Encounter - Kelvin Simon RN - 11/04/2018 11:31 AM EDT When speaking with patient today, patient stated he is confused which labs he has to fast for that were ordered on 10/29/2018. I advised him to be fasting for blood work in 3 months (for cmp and lipid). Patient asked if he needs to be fasting for any others, and I informed him he did not. Patient said he wants to be sure and to ask Dr. Joseph. Please advise. * Result Kelvin Boland RN - 11/04/2018 11:31 AM EDT Please see telephone encounter for more information. * Result William Gamez MD - 11/04/2018 7:52 AM EDT Bilateral cysts, likely benign. Kidneys normal size. Has bilateral renal calcifications, perhaps stones or vascular calcifications. They are non- obstructed. Given decreased gfr, would ask nephrology to see dx CKD III to make sure no other work up needed. * Telephone Encounter - Edna Oneal OSA - 10/29/2018 3:32 PM EDT Appt scheduled, pt aware. * Telephone Encounter - Kelvin Simon RN - 10/29/2018 12:56 PM EDT Called patient and informed him of Dr. Joseph's result message. He verbalized understanding of all information and is agreeable to all recommendations. Pharmacy confirmed. Medication and imaging orders pended. Please review and sign if agree. Patient requested lab orders be mailed to him. Lab orders placed, printed, and mailed to patient per his request. * Telephone Encounter - Kelvin Simon RN - 10/29/2018 12:37 PM EDT ----- Message from William Joseph MD sent at 10/28/2018 8:56 PM EDT ----- Please call 1. gfr very minimally worse. Check renal u/s dx ckd III to assess kidneys. His kidney disease is mild, but still should check. Recheck bmp 1-2 weeks - please stay hydrated 2. PTH elevated check 25-OH as sometimes vit d changes can cause dx abnormal PTH level, CKD III, pls do next 1-2 weeks. Recheck pth dx abnormal pth 3 months to follow. 3. Lipids slightly high for age. Risk of NC in next 10 years 27% which is high. Suggest crestor 10 mg daily to help lower risk. Watch out for muscle aches/pains, fatigue, cola colored urine, and callif develop. These are rare side effects. Recheck cmp, flp to 3 months dx mixed hyperlipidemia to follow. 4. Rest of labs ok. documented in this encounter Plan of Treatment Upcoming Encounters Date Type Specialty Care Team Description 12/17/2018 Office Visit Internal Medicine William Joseph MD [address] [place] [address], [place] [address] [phone] 02/04/2019 Office Visit Rheumatology Carlos Alberto Matthews MD [address] [facility], [place] [address] [phone] Scheduled Orders Name Type Priority Associated Diagnoses Orde r Schedule BASIC METAB PANEL, BMP Lab Routine Kidney disease, chronic, stage III (GFR 30-59 ml/min) (HCC) Expected: 11/05/2018 (Approximate), Expires: 10/30/2019 25-HYDROXY VITAMIN D Lab Routine Kidney disease, chronic, stage III (GFR 30-59 ml/min) (HCC) Increased PTH level Expected: 11/05/2018 (Approximate), Expires: 10/29/2019 PTH, INTACT Lab Routine Kidney disease, chronic, stage III (GFR 30-59 ml/min) (HCC) Increased PTH level Expected: 01/29/2019 (Approximate), Expires: 10/29/2019 COMPR METAB PANEL Lab Routine Mixed hyperlipidemia Expected: 01/29/2019 (Approximate), Expires: 10/29/2019 LIPID PANEL WITH DIRECT LDL IF TG ABOVE 150 MG/DL Lab Routine Mixed hyperlipidemia Expected: 01/29/2019 (Approximate), Expires: 10/30/2019 Health Maintenance Due Date Last Done Comments FOBT ANNUALLY,AGES 18-90 03/22/2017 03/22/2016, 09/26 *DEPRESSION SCREENING, ANNUAL FOR PTS 18 AND OVER 08/02/2018 CKD GFR USE SMARTSET [id number] 04/24/201910/22, 05/04/2016, 06/11/2014, Additional history exists CKD HGB USE SMARTSET [id number] 10/23/201910/22, 07/06/2016, 05/04/2016, Additional history exists CKD PHOS USE SMARTSET [id number] 10/23/2019 10/22/2018, 1 07/05/2015 DIABETES SCREEN EVERY 3 YRS-AGE 45 AND ABOVE 10/22/2021 10/22/2018, 05/04/2016, 06/11/2014, Additional history exists DTaP,Tdap,and Td Vaccines (2 [...] Name Priority Date/Time Associated Diagnosis Comments US RENAL Routine 11/03/2018 2:46 PM EDT Kidney disease, chronic, stage III (GFR 30-59 ml/min) ([facility]) documented in this encounter Results * US RENAL (11/03/2018 2:46 PM EDT) Specimen Impressions Performed At IMPRESSION 1. Bilateral renal cysts. 2. No hydronephrosis. 3. Bilateral renal calcifications, nephrolithiasis versus vascular. [facility] Narrative Performed At EXAM 11/03/2018 2:46 pmUS RENAL HISTORY worsening gfr TECHNIQUE Real-time static sonographic images were obtained. COMPARISON Chest CT June 15, 2013 FINDINGS Right Kidney:Normal size and echotexture measuring 12.2 x 5.0 x 4.9 cm.Multiple cysts, the largest within the medial midpole measuring 67 x 69 x 64 mm.Lateral calcification, vascular versus nonobstructing nephrolithiasis measuring 7 mm. Left Kidney:Normal size and echotexture measuring 11.5 x 5.2 x 4.3 cm.Multiple probable cysts, the largest within the medial midpole measuring 25 x 17 x 26 mm.Superior pole calcification measuring 5 mm. Bladder: Not evaluated due to underdistention. Aorta:Visualized portions are normal in caliber.Proximal aorta is obscured due to overlying bowel gas. [facility] Procedure Note Interface, Rad In - 11/03/2018 6:32 PM EDT EXAM 11/03/2018 2:46 pmUS RENAL HISTORY worsening gfr TECHNIQUE Real-time static sonographic images were obtained. COMPARISON Chest CT June 15, 2013 FINDINGS Right Kidney: Normal size and echotexture measuring 12.2 x 5.0 x 4.9 cm.Multiple cysts, the largest within the medial midpole measuring 67 x 69 x64 mm. Lateral calcification, vascular versus nonobstructingnephrolithiasis measuring 7 mm. Left Kidney: Normal size and echotexture measuring 11.5 x 5.2 x 4.3 cm.Multiple probable cysts, the largest within the medial midpole x 17 x 26 mm. Superior pole calcification measuring 5 mm. Bladder: Not evaluated due to underdistention. Aorta: Visualized portions are normal in caliber. Proximal aorta isobscured due to overlying bowel gas. IMPRESSION IMPRESSION 1. Bilateral renal cysts. 2. No hydronephrosis. 3. Bilateral renal calcifications, nephrolithiasis versus vascular. Performing Organization Address City/State/Zipcod e Phone Number [facility] documented in this encounter Visit Diagnoses Diagnosis Mixed hyperlipidemia- Primary Kidney disease, chronic, stage III (GFR 30-59 ml/min) (HCC) Chronic kidney disease, Stage III (moderate) Increased PTH level Unspecified endocrine disorder documented in this encounter Advance Directives Documents on File Type Date Recorded Patient Plater Supervisor Expl anation Advanced Directive Advanced Directive Advanced Directive Advanced Directive Advanced Directive Advanced Directive Advanced Directive
--- OUTSIDE RECORDS SUMMARY | 2023-01-29 05:11 | External Medical Summary | Summary of Care ---
Author Name Unknown Organization [place] [address] Care Team Providers Care Waste Handling Technician Name Role Phone William Joseph MD Primary Care Provider + Reason for Referral * (Routine) Status Reason Specialty Diagnoses / Procedures Referred By Contact Referred To Contact Pending Review Diagnoses Thyroid nodule Procedures US HEAD AND NECK William Joseph MD [address] [place] [id number] Reason for Visit * Reason Comments Physical-Exam Pt presents today fo r a cpe. Pt denies any complaints for the doctor at this time. 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 30 Cap 11 08/08/2018 Active documented as of this encounter (statuses as of 08/20/2018) Active Problems Problem Noted Date Rheumatoid arthritis involvi ng multiple sites with positive rheumatoid factor 06/11/2018 Primary osteoarthritis of right hip 11/24 Generalized osteoarthritis 09/04/2017 Bunion, left foot 09/04/2017 Benign hypertension with CKD (chronic ki dney disease) stage III 07/30/2017 Bronchiectasis 12/08/2013 Thoracic aortic aneurysm 12/08/2013 Pernicious anemia 08/24/2010 documented as of this encounter (statuses as of 08/20/2018) Resolved Problems Problem Noted Date Resolved Date [...] as of this encounter (statuses as of 08/20/2018) Immunizations Name Dates Previously Given Next Due [...] Vital Sign Reading Time Taken Blood Pressure 146/78 08/20/2018 3:00 PM EDT Pulse 72 08/20/2018 2:53 PM EDT Temperature 36.8 C (98.2 F) 08/20/2018 2 :53 PM EDT Respiratory Rate 16 08/20/2018 2:53 PM EDT Oxygen Saturation - - Inhaled Oxygen Concentration - - Weight 84.8 kg (187 lb) 08/20/2018 2:53 PM EDT Height 172 cm (5' 7.72") 08/20/2018 2:5 3 PM EDT Body Mass Index 28.67 08/20/2018 2:53 PM EDT documented in this encounter Patient Instructions * Patient Instructions* William Joseph MD - 08/20/2018 3:00 PM EDT BMI (Body Mass Index) is the number obtained by dividing a person's weight in kilograms by his or her height in meters squared. BMI is used in determining obesity. BMI is not used to determine a person's actual percentage of body fat, but it is a good tool to occupational nurse weight in terms of what is healthy and unhealthy. It is used to identify adults at increased risk for developing weight related medical problems. Estimated body mass index is 28.67 kg/m as calculated from the following: Height as of this encounter: 1.72 m (5' 7.72"). Weight as of this encounter: 84.8 kg (187 lb). Overweight- BMI 25.0 to 29.9 kg/m2 - Overweight individuals are at risk for developing: * Heart disease * Stroke * Diabetes * High Blood Pressure * High Cholesterol * GERD (acid reflux) * Sleep Apnea * Osteoarthritis * Fatty Liver Disease * Certain Types of Cancers * Gout * Gall Bladder Disease - Weight loss has been shown to decrease weight related medical problems. - A 12-week weight management text message program is also available. Go to Awareness Card and seethe message under '[employer] News' for more information and enrollment. Patient is Instructed to: Diet: * Limit total fat intake to no more than 40 grams per day (low fat diet). * Increase fruits and vegetables to 5 servings per day, combined. * Limited starches (breads, pasta, rice, potatoes, corn, cereals) to 4 servings per day. Avoid Calorie Containing Drinks: * No fruit juices, regular sodas or sweetened drinks. * Water is preferred - 64 ounces per day unless advised of a fluid restriction. * Diet sodas and drinks permitted. Keep Honest, Accurate Food logs: * www.Reasult.New KCBX * www.ArtBinder.New KCBX * If you bite it - write it! Weigh Yourself Weekly: * Morning is best. * Try to do this outside your home. * Have a friend/spouse remind you to weigh yourself, accountability to others helps. Perform 30 minutes of physical activity daily: * Can do all at once or 5 minutes 6 times per day * 8, 000-10,000 steps per day using a pedometer * Make it fun! documented in this encounter Progress Notes * William Joseph MD - 08/20/2018 3:00 PM EDT Chief Complaint Patient presents with Physical-Exam Pt presents today for a cpe. Pt denies any complaints for the doctor at this time. SUBJECTIVE: Ignacio Garcia is a 73 year old male with PMH as below who presents for physical. No concerns. His RA was flaring 3 months ago, went back to rheum, was requiring more prednisone (20 mg/day), then started last month on leflunomide by rheum. Since then pain that was in hands, arms, and most joints markedly better. He feels well. Also had a cough in May w/o sputum, sob, but not now. Feels well. Otherwise, Patient has no complaints, denies cp, sob, n/v/d, palpitations, edema, PND, urinary problems, bowel issues, no blood in stool or urine. Eating and drinking without issue, feels safe, denies abuse or feelings of depression, wears seatbelts. No SI, HI. Not as active past months 2/2 Ra pain, but plans to get active now that feeling better. Patient Active Problem List Diagnosis Code Pernicious anemia D51.0 Bronchiectasis ([facility]) J47.9 Thoracic aortic aneurysm ([facility]) I71.2 Benign hypertension with CKD (chronic kidney disease) stage III ([facility]) I12.9, N18.3 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 Bunion, left foot M21.612 Primary osteoarthritis of right hip M16.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 ([facility]) M05.79 Current Outpatient Medications Medication Sig Dispense Refill amlodipine-benazepril 5-20 mg per cap (LOTREL) 5-20 MG per capsule Take 1 Cap by mouth daily. 30 Cap 11 leflunomide (ARAVA) 10 MG Tablet Take 1 Tab by mouth daily. 30 Tab 5 PredniSONE (DELTASONE) 5 MG Tablet Take 1 Tab by mouth daily. 30 Tab 1 benzonatate (TESSALON PERLES) 100 MG Capsule Take 1 Cap by mouth 2 times a day as needed for Cough.Do not cut, crush, or chew. 50 Cap 1 fluticasone (FLOVENT HFA) 44 MCG/ACT inhaler Inhale 1 Puff by mouth 2 times a day. 10.6 g 4 vitamin b-12 (CYANOCOBALAMIN) 1000 MCG/ML injection Inject 1,000 mcg into a large muscle every 30 days. 1 mL 5 Review of patient's allergies indicates: No Known Allergies Health Maintenance Due Topic Date Due CKD GFR USE SMARTSET 11771 11/02/2016 FOBT ANNUALLY,AGES 18-90 03/22/2017 CKD PHOS USE SMARTSET 75392 05/04/2017 *BASIC METABOLIC PANEL (BMP) FOR HTN YEARLY 05/07/2017 CKD HGB USE SMARTSET 20280 07/06/2017 *DEPRESSION SCREENING, ANNUAL FOR PTS 18 AND OVER 08/02/2018 ROS: CONSTITUTIONAL: No change in weight, No weakness and No fevers, sweats, or chills EYE: No recent significant change in vision, No eye pain, redness, discharge, No diplopia, EARS: No ear pain, No drainage, No tinnitus or vertigo and No recent change in hearing NOSE: No history of frequent colds or sinusitis, No nasal stuffiness, No history of Hay Fever and No significant epistaxis MOUTH: No bleeding [...] abdominal bloating or early satiety and No dysphagia, mentions had blood in stool 5-10 years ago when he would get loose stools with stress, hasn't happened in 10 years, no pain : no concerns All OTHER SYSTEMS NEGATIVE EXCEPT STATED IN HPI ABOVE, OVER 10 SYSTEMS REVIEWED I reviewed social, PMH, PSH, and family history and updated where needed. 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 Employer: [employer] Tobacco Use Smoking status: Former Smoker Packs/day: [...] Mother Hypertension Mother OBJECTIVE: PHYSICAL EXAM: BP 146/78 | Pulse 72 | Temp (Src) 98.2 (Tympanic) | Resp 16 | Ht 5' 7.717" (1.720m) | Wt 187 lbs (84.823kg) | BMI 28.67 kg/m | BSA 2.01 m General: alert, healthy and no distress Head: Normocephalic, No masses, lesions, tenderness or abnormalities Eye Exam: PERRLA, Conjunctiva are pink and non-injected, sclera clear Ears: External ears normal, Canals clear, TM's Normal Nose: no mucosal erythema, no mucosal edema, no purulent discharge Oropharynx: no exudate, no erythema, lips, buccal mucosa, and tongue normal and mucous membranes are moist Heart: regular rate & rhythm, no murmurs, no gallops, PMI non-displaced, S-1 normal and S-2 normal Lungs: normal respiratory rate and rhythm, lungs clear to auscultation Abdomen: abdomen soft, non-tender, normal bowel sounds and no masses or organomegaly Extremities: no edema, no clubbing, no cyanosis Neuro Exam: no focal motor/sensory deficits, gait normal Psych: normal affect, no flight of ideas or tangential thought, good eye contact, no pressured speech I reviewed last labs, thyroid us ASSESSMENT: Z00.00 Physical exam, annual (primary encounter diagnosis) E66.3 Overweight (BMI 25.0-29.9) I12.9,N18.3 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9, N18.3 Benign hypertension with ckd (chronic kidney disease) stage iii (hcc) Plan:due for labs, will get at [facility]. BP NOT at goal he will watch diet better, get back to exercise and we will recheck 2 months Compr metab panel Lipid panel with direct ldl if tg above 150 mg/dl Phosphorus Cbc Pth, intact Urine microscopic D51.0 Pernicious anemia Plan: Vitamin b12 I71.2 Thoracic aortic aneurysm without rupture (hcc) Declines CT M05.79 Rheumatoid arthritis involving multiple sites with positive rheumatoid factor (hcc) Cont med J47.9 Bronchiectasis without complication (hcc) Better Discussed CT to evaul lung he declines E04.1 Thyroid nodule Plan: Tsh Us head and neck Z12.11 Screen for colon cancer Plan:discussed options, declines c-scope, urged given remote h/o blood, still declines Cologuard Z12.5 Screening for prostate cancer Plan: Psa I71.2 Thoracic aortic aneurysm (hcc) As above Follow up: Return in about 2 months (around 10/20/2018), or if symptoms worsen or fail to improve. William Joseph MD documented in this encounter Nursing Notes * Patt Ramos LPN - 08/20/2018 2:52 PM EDT Pt presents today for a cpe. Pt denies any complaints for the doctor at this time. documented in this encounter Plan of Treatment Upcoming Encounters Date Type Specialty Care Team Description 08/27/2018 Imaging Radiology 10/08/2018 Office Visit Rheumatology Carlos Alberto Matthews MD [address] [facility], [place] [id number] Edmund Nurse [facility] [address] [facility] [place] [address] [phone] 10/21/2018 Office Visit Internal Medicine William Joseph MD [address] [place] [address] [phone] Scheduled Tests Name Priority Associated Diagnoses Order S chedule US HEAD AND NECK Routine Thyroid nodule Ordered: 08/20/2018 COMPR METAB PANEL Routine 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) Ordered: 08/20/2018 LIPID PANEL WITH DIRECT LDL IF TG ABOVE 150 MG/DL Routine 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) Ordered: 08/20/2018 PHOSPHORUS Routine 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) Ordered: 08/20/2018 CBC Routine 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) Ordered: 08/20/2018 PSA Routine Screening for prostate cancer Ordered: 08/20/2018 PTH, INTACT Routine 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) Ordered: 08/20/2018 TSH Routine Thyroid nodule Ordered: 08/20/2018 URINE MICROSCOPIC Routine 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) Ordered: 08/20/2018 COLOGUARD Unrestricted Lab Screen for colon cancer Ordered: 08/20/2018 VITAMIN B12 Routine Pernicious anemia Ordered: 08/20/2018 Health Maintenance Due Date Last Done Comments CKD GFR USE SMARTSET 93133 11/02/201605/04, 06/11/2014, 01/01/2014, Additional history exists FOBT ANNUALLY,AGES 18-90 03/22/2017 03/22/2016, 09/26 CKD PHOS USE SMARTSET 12897 05/04/2017 05/04/2016 *BASIC METABOLIC PANEL (BMP) FOR HTN YEARLY 05/07/2017 CKD HGB USE SMARTSET 00026 07/06/201707/06, 05/04/2016, 01/01/2014, Additional history exists *DEPRESSION SCREENING, ANNUAL FOR PTS 18 AND OVER 08/02/2018 DIABETES SCREEN EVERY 3 YRS-AGE 45 AND [...] as of this encounter Visit Diagnoses Diagnosis Physical exam, annual- Primary Routine general medical examination at a health care facility Overweight (BMI 25.0-29.9) Overweight 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, or unspecified Pernicious anemia Thoracic aortic aneurysm without rupture (HCC) Thoracic aneurysm without mention of rupture Rheumatoid arthritis involving multiple sites with positive rheumatoid factor (HCC) Bronchiectasis without complication (HCC) Bronchiectasis without acute exacerbation Thyroid nodule Nontoxic uninodular goiter Screen for colon cancer Special screening for malignant neoplasms, colon Screening for prostate cancer Special screening for malignant neoplasm of prostate Thoracic aortic aneurysm (HCC) Thoracic aneurysm without mention of rupture documented in this encounter Advance Directives Patient has advance care planning documents on file. For more information, please contact: [place] Hoffman [phone]
--- OUTSIDE RECORDS SUMMARY | 2023-01-29 05:11 | External Medical Summary | Summary of Care ---
Author Name Unknown Organization [place] [address] Care Team Providers Care Textile Finisher Name Role Phone William Joseph MD Primary Care Provider + Reason for Visit * Reason Comments Pt Portal Med Renewal Encounter Details Date Type Department Care Team Description 12/09/2018 Refill General Internal Medicine [facility] [address] [place] [address] William Joseph MD [address] [place] [address] [phone] Pernicious anemia Allergies No Known Allergiesdocumented as of this encounter (statuses as of 12/09/2018) Medications Medication Sig Dispensed Refills Start Date [...] 11 08/08/2018 Active rosuvastatin (CRESTOR) 10 MG TabletIndications:Mix ed hyperlipidemia Take 1 Tab by mouth daily. 30 Tab 5 10/29/2018 Active vitamin b-12 (CYANOCOBALAMIN) 1000 MCG/ML injectionIndications: Pernicious anemia Inject 1,000 mcg into a large muscle every 30 days. 1 mL 5 12/09/2018 Active vitamin b-12 (CYANOCOBALAMIN) 1000 MCG/ML injectionIndications: Pernicious anemia Inject 1,000 mcg into a large muscle every 30 days. 1 mL 5 05/07/2018 12/09/2018 Discontinued documented as of this encounter (statuses as of 12/09/2018) Active Problems Problem Noted Date Rheumatoid arthritis [...] as of this encounter (statuses as of 12/09/2018) Resolved Problems Problem Noted Date Resolved Date History of rheumatoid arthritis 09/04/2017 08/20/2018 History of rheumatoid arthritis 01/06/2016 07/27/2016 Kidney disease, chronic, stage III (GFR 30-59 ml /min) 08/09/2014 07/30/2017 Overview: Per CKD protocol #1 HTN, goal below 140/90 8 Kidney disease, chronic, stage III (GFR 30-59 ml /min) 03/24/2012 documented as of this encounter (statuses as of 12/09/2018) Immunizations Name Administration Dates Next Due Pneumococcal [...] encounter Miscellaneous Notes * Telephone Encounter - Tere Negro MD - 12/09/2018 3:11 PM EDT Signed Prescriptions: Disp Refills vitamin b-12 (CYANOCOBALAMIN) 1000 MCG/ML *1 mL 5 Sig: Inject 1,000 mcg into a large muscle every 30 days. Authorizing Provider: TERE NEGRO * Telephone Encounter - Rosa Levy LPN - 12/09/2018 2:30 PM EDT Pending Prescriptions: Disp Refills vitamin b-12 (CYANOCOBALAMIN) 1000 MCG/ML*1 mL 5 Sig: Inject 1,000 mcg into a large muscle every 30 days. * Telephone Encounter - Keisha PayneWAYNE - 12/09/2018 2:09 PM EDT Pending Prescriptions: Disp Refills vitamin b-12 (CYANOCOBALAMIN) 1000 MCG/ML*1 mL 5 Sig: Inject 1,000 mcg into a large muscle every 30 days. 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) I12.9, N18.3 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 Bunion, left foot M21.612 Primary osteoarthritis of right hip M16.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 ([facility]) M05.79 Labs: CREATININE-OUTSIDE LAB(MG/DL) Nikita Dt/Tm Resulted Value [...] A1C components found * Telephone Encounter - Keisha Payne LPN - 12/09/2018 2:09 PM EDT Message from [facility]: ----- Message from Provider, Patient Portal sent at 12/09/2018 2:03 PM EDT ----- Ignacio Garcia would like a refill of the following medications: vitamin b-12 (CYANOCOBALAMIN) 1000 MCG/ML injection [William Joseph MD] Preferred pharmacy: [id number] documented in this encounter Plan of Treatment Upcoming Encounters Date Type Specialty Care Team Description 12/17/2018 Office Visit Internal Medicine William Joseph MD [address] [place] [address] [phone] 02/04/2019 Office Visit Rheumatology Carlos Alberto Matthews MD [facility] [place] [address] [phone] Health Maintenance Due Date Last Done Comments FOBT ANNUALLY,AGES 18-90 03/22/2017 03/22/2016, 09/26 *DEPRESSION SCREENING, ANNUAL FOR PTS 18 AND OVER 08/02/2018 Influenza Vaccine (FLU shot) (#1) 2018 05/22/2018, 06/05/2017, 05/04/2016, Additional history exists CKD GFR USE SMARTSET 24200 05/13/201911/11, 10/22/2018, 05/04/2016, Additional history exists CKD HGB USE SMARTSET 03702 10/23/201910/22, 07/06/2016, 05/04/2016, Additional history exists CKD PHOS USE SMARTSET 54090 10/23/2019 10/22/2018, 1 07/05/2015 DIABETES SCREEN EVERY [...] Documents on File Type Date Recorded Patient Wharf Tally Clerk Expl anation Advanced Directive Advanced Directive Advanced Directive Advanced Directive Advanced Directive Advanced Directive Advanced Directive
--- OUTSIDE RECORDS SUMMARY | 2023-01-29 05:11 | External Medical Summary | Summary of Care ---
Author Name Unknown Organization [place] [address] Care Team Providers Care Commercial Census Taker Name Role Phone William Joseph MD Primary Care Provider + Reason for Referral * (Routine) Status Reason Specialty Diagnoses / Procedures Referred By Contact Referred To Contact Pending Review Diagnoses Kidney disease, chronic, stage III (GFR 30-59 ml/min) (HCC) Procedures RENAL William Joseph MD [address] [place] [address] Reason for Visit * Reason Comments Test Results Encounter Details Date Type Department Care Team Description 10/29/2018 Telephone General Internal Medicine [facility] [address] [place], [place] [id number] William Joseph MD [address] [place] [address] [id number] Test Results Allergies No Known Allergiesdocumented as of this encounter (statuses as of 10/29/2018) Medications Medication Sig Dispensed Refills Start Date [...] as of this encounter (statuses as of 10/29/2018) Active Problems Problem Noted Date Rheumatoid arthritis [...] as of this encounter (statuses as of 10/29/2018) Resolved Problems Problem Noted Date Resolved Date History of rheumatoid arthritis 09/04/2017 08/20/2018 History of rheumatoid arthritis 01/06/2016 07/27/2016 Kidney disease, chronic, stage III (GFR 30-59 ml /min) 08/09/2014 07/30/2017 Overview: Per CKD protocol #1 HTN, goal below 140/90 8 Kidney disease, chronic, stage III (GFR 30-59 ml /min) 03/24/2012 documented as of this encounter (statuses as of 10/29/2018) Immunizations Name Administration Dates Next Due Pneumococcal [...] Lipids slightly high for age. Risk of NE in next 10 years 27% which is [...] Encounters Date Type Specialty Care Team Description 11/03/2018 Imaging Radiology 12/17/2018 Office Visit Internal Medicine William Joseph MD [address] [facility] [address] [phone] 02/04/2019 Office Visit Rheumatology Carlos Alberto Matthews MD [address] [facility] [place], [place] [id number] Scheduled Orders Name Type Priority Associated Diagnoses Orde r Schedule BASIC METAB PANEL, BMP Lab Routine Kidney disease, chronic, stage III (GFR 30-59 ml/min) ([facility]) Expected: 11/05/2018 (Approximate), Expires: 10/30/2019 25-HYDROXY VITAMIN D Lab Routine Kidney disease, chronic, stage III (GFR 30-59 ml/min) ([facility]) Increased PTH level Expected: 11/05/2018 (Approximate), Expires: 10/29/2019 PTH, INTACT Lab Routine Kidney disease, chronic, stage III (GFR 30-59 ml/min) ([facility]) Increased PTH level Expected: 01/29/2019 (Approximate), Expires: 10/29/2019 COMPR METAB PANEL Lab Routine Mixed hyperlipidemia Expected: 01/29/2019 (Approximate), Expires: 10/29/2019 LIPID PANEL WITH DIRECT LDL IF TG ABOVE 150 MG/DL Lab Routine Mixed hyperlipidemia Expected: 01/29/2019 (Approximate), Expires: 10/30/2019 US RENAL Medical Imaging Routine Kidney disease, chronic, stage III (GFR 30-59 ml/min) (HCC) Ordered: 10/29/2018 Health Maintenance Due Date Last Done Comments FOBT ANNUALLY,AGES 18-90 03/22/2017 03/22/2016, 09/26 *DEPRESSION SCREENING, ANNUAL FOR PTS 18 AND OVER 08/02/2018 CKD GFR USE SMARTSET 02985 04/24/201910/22, 05/04/2016, 06/11/2014, Additional history exists CKD HGB USE SMARTSET 78367 10/23/201910/22, 07/06/2016, 05/04/2016, Additional history exists CKD PHOS USE SMARTSET 60033 10/23/2019 10/22/2018, 1 07/05/2015 DIABETES SCREEN EVERY [...] as of this encounter Visit Diagnoses Diagnosis Mixed hyperlipidemia- Primary Kidney disease, chronic, stage III (GFR 30-59 ml/min) (HCC) Chronic kidney disease, Stage III (moderate) Increased PTH level Unspecified endocrine disorder documented in this encounter Advance Directives Documents on File Type Date Recorded Patient Radiation Therapy Technician Expl anation Advanced Directive Advanced Directive Advanced Directive Advanced Directive Advanced Directive Advanced Directive Advanced Directive
--- OUTSIDE RECORDS SUMMARY | 2023-01-29 05:11 | External Medical Summary | Summary of Care ---
Author Name Unknown Organization [place] [address] Care Team Providers Care Tie Mill Operator Name Role Phone William Joseph MD Primary Care Provider + Reason for Visit * Reason Comments Test Results Encounter Details Date Type Department Care Team Description 11/14/2018 Telephone General Internal Medicine [facility] [address] [place] [address] Brooke Patrick MD [address] [place] [address] Test Results Allergies No Known Allergiesdocumented as of this encounter (statuses as of 11/14/2018) Medications Medication Sig Dispensed Refills Start Date End Date Status fluticasone (FLOVENT HFA) 44 MCG/ACT inhalerIndications:[facility] hiectasis (HCC) Inhale 1 Puff by mouth [...] mg per cap (LOTREL) 5-20 MG per capsuleIndications:Bencarly n hypertension 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) Take 1 Cap by mouth daily. 30 Cap 11 08/08/2018 Active rosuvastatin (CRESTOR) 10 MG TabletIndications:Mixed hyperlipidemia Take 1 Tab by mouth daily. 30 Tab 5 10/29/2018 Active documented as of this encounter (statuses as of 11/14/2018) Active Problems Problem Noted Date Rheumatoid arthritis [...] as of this encounter (statuses as of 11/14/2018) Resolved Problems Problem Noted Date Resolved Date History of rheumatoid arthritis 09/04/2017 08/20/2018 History of rheumatoid arthritis 01/06/2016 07/27/2016 Kidney disease, chronic, stage III (GFR 30-59 ml /min) 08/09/2014 07/30/2017 Overview: Per CKD protocol #1 HTN, goal below 140/90 8 Kidney disease, chronic, stage III (GFR 30-59 ml /min) 03/24/2012 documented as of this encounter (statuses as of 11/14/2018) Immunizations Name Administration Dates Next Due Pneumococcal [...] encounter Miscellaneous Notes * Telephone Encounter - Beth Quintero OSA - 11/14/2018 12:28 PM EDT Patient has been notified of the message. Patient has no further questions. * Telephone Encounter - Tran Velazquez LPN - 11/14/2018 8:56 AM EDT Called patient. Left message to return call at * Telephone Encounter - Tran Velazquez LPN - 11/14/2018 8:52 AM EDT ----- Message from Brooke Patrick MD sent at 11/13/2018 9:52 PM EDT ----- Vit d low . If not taking already start OTC vit D 1000 IU daily . Caution of constipation. Rest labs stable Continue current medications as directed documented in this encounter Plan of Treatment Upcoming Encounters Date Type Specialty Care Team Description 12/17/2018 Office Visit Internal Medicine William Joseph MD [address] [facility] [place] [address] [phone] 02/04/2019 Office Visit Rheumatology Carlos Alberto Matthews MD [address] [facility] [place], [place] [address] [phone] Health Maintenance Due Date Last Done Comments FOBT ANNUALLY,AGES 18-90 03/22/2017 03/22/2016, 09/26 *DEPRESSION SCREENING, ANNUAL FOR PTS 18 AND OVER 08/02/2018 CKD GFR USE SMARTSET 86357 05/13/201911/11, 10/22/2018, 05/04/2016, Additional history exists CKD HGB USE SMARTSET 08020 10/23/201910/22, 07/06/2016, 05/04/2016, Additional history exists CKD PHOS USE SMARTSET 29901 10/23/2019 10/22/2018, 1 07/05/2015 DIABETES SCREEN EVERY [...] Documents on File Type Date Recorded Patient Feed Management Advisor Expl anation Advanced Directive Advanced Directive Advanced Directive Advanced Directive Advanced Directive Advanced Directive Advanced Directive
--- OUTSIDE RECORDS SUMMARY | 2023-01-29 05:11 | External Medical Summary | Summary of Care ---
Author Name Unknown Organization [place] [address] Care Team Providers Care Rn Telehealth Name Role Phone William Joseph MD Primary Care Provider + Reason for Referral * (Routine) Status Reason Specialty Diagnoses / Procedures Referred By Contact Referred To Contact Pending Review Diagnoses Kidney disease, chronic, stage III (GFR 30-59 ml/min) (HCC) Procedures RENAL William Joseph MD [address] [place] [address] Reason for Visit * Reason Comments Test Results Encounter Details Date Type Department Care Team Description 10/29/2018 Telephone General Internal Medicine [facility] [address] [place], [place] [id number] William Joseph MD [address] [place] [id number] Test Results Allergies No Known Allergiesdocumented as [...] Telephone Encounter - William Joseph MD - 11/04/2018 11:55 AM EDT Fast for lipids. * Telephone Encounter - Kelvin Simon RN [...] Lipids slightly high for age. Risk of SD in next 10 years 27% which is [...] Internal Medicine William Joseph MD [address] [place] [address] [phone] 02/04/2019 Office Visit Rheumatology Carlos Alberto Matthews MD [address] [place] [address] [phone] Scheduled Orders Name Type Priority Associated Diagnoses [...] AND OVER 08/02/2018 CKD GFR USE SMARTSET 53722 04/24/201910/22, 05/04/2016, 06/11/2014, Additional history exists CKD HGB USE SMARTSET 33533 10/23/201910/22, 07/06/2016, 05/04/2016, Additional history exists CKD PHOS USE SMARTSET 71422 10/23/2019 10/22/2018, 1 07/05/2015 DIABETES SCREEN EVERY [...] disease, chronic, stage III (GFR 30-59 ml/min) ([facility]) documented in this encounter Results * US RENAL (11/03/2018 2:46 PM EDT) Specimen Impressions Performed At IMPRESSION 1. Bilateral renal cysts. 2. No hydronephrosis. 3. Bilateral renal calcifications, nephrolithiasis versus vascular. [facility] Narrative Performed At EXAM 11/03/2018 2:46 [...] is obscured due to overlying bowel gas. [facility] Procedure Note Interface, Rad In - [...] cysts, the largest within the medial midpole [id number] x 17 x 26 mm. Superior pole calcification measuring 5 mm. Bladder: Not evaluated due to underdistention. Aorta: Visualized portions are normal in caliber. Proximal aorta isobscured due to overlying bowel gas. IMPRESSION IMPRESSION 1. Bilateral renal cysts. 2. No hydronephrosis. 3. Bilateral renal calcifications, nephrolithiasis versus vascular. Performing Organization Address City/State[facility] Phone Number [facility] documented in this encounter Visit Diagnoses Diagnosis Mixed hyperlipidemia- Primary Kidney disease, chronic, stage III (GFR 30-59 ml/min) (HCC) Chronic kidney disease, Stage III (moderate) Increased PTH level Unspecified endocrine disorder documented in this encounter Advance Directives Documents on File Type Date Recorded Patient Power And Recovery Supervisor Expl anation Advanced Directive Advanced Directive Advanced Directive Advanced Directive Advanced Directive Advanced Directive Advanced Directive
--- OUTSIDE RECORDS SUMMARY | 2023-01-29 05:11 | External Medical Summary | Summary of Care ---
Author Name Unknown Organization [place] [address] Care Team Providers Care Support Services Manager Name Role Phone William Joseph MD Primary Care Provider + Encounter Details Date Type Department Care Team Description 11/19/2018 Scan Encounter Unspecified Department <No scans attached> Allergies No Known Allergiesdocumented as of this encounter (statuses as of 11/20/2018) Medications Medication Sig Dispensed Refills Start Date End Date Status fluticasone (FLOVENT HFA) 44 MCG/ACT inhalerIndications:Bronc hiectasis (HCC) Inhale 1 Puff by mouth [...] as of this encounter (statuses as of 11/20/2018) Active Problems Problem Noted Date Rheumatoid arthritis [...] as of this encounter (statuses as of 11/20/2018) Resolved Problems Problem Noted Date Resolved Date History of rheumatoid arthritis 09/04/2017 08/20/2018 History of rheumatoid arthritis 01/06/2016 07/27/2016 Kidney disease, chronic, stage III (GFR 30-59 ml /min) 08/09/2014 07/30/2017 Overview: Per CKD protocol #1 HTN, goal below 140/90 8 Kidney disease, chronic, stage III (GFR 30-59 ml /min) 03/24/2012 documented as of this encounter (statuses as of 11/20/2018) Immunizations Name Administration Dates Next Due Pneumococcal [...] Internal Medicine William Joseph MD [address] [place] [address] [phone] 02/04/2019 Office Visit Rheumatology Carlos Alberto Matthews MD [address] [place] [address] [phone] Health Maintenance Due Date Last Done Comments FOBT ANNUALLY,AGES 18-90 03/22/2017 03/22/2016, 09/26 *DEPRESSION SCREENING, ANNUAL FOR PTS 18 AND OVER 08/02/2018 CKD GFR USE SMARTSET 53828 05/13/201911/11, 10/22/2018, 05/04/2016, Additional history exists CKD HGB USE SMARTSET 79701 10/23/201910/22, 07/06/2016, 05/04/2016, Additional history exists CKD PHOS USE SMARTSET 98658 10/23/2019 10/22/2018, 1 07/05/2015 DIABETES SCREEN EVERY [...] Documents on File Type Date Recorded Patient Ore Grader Expl anation Advanced Directive Advanced Directive Advanced Directive Advanced Directive Advanced Directive Advanced Directive Advanced Directive
--- OUTSIDE RECORDS SUMMARY | 2023-01-29 05:11 | External Medical Summary | Summary of Care ---
Author Name Unknown Organization [place] [address] Care Team Providers Care Wagon Person Name Role Phone William Joseph MD Primary Care Provider + Reason for Referral * (Routine) Status Reason Specialty Diagnoses / Procedures Referred By Contact Referred To Contact Pending Review Diagnoses Kidney disease, chronic, stage III (GFR 30-59 ml/min) (HCC) Procedures RENAL William Joseph MD [address] [place] [address] Reason for Visit * Reason Comments Test Results Encounter Details Date Type Department Care Team Description 10/29/2018 Telephone General Internal Medicine [facility] [address] [place], [place] [phone] William Joseph MD [address] [place] [phone] Test Results Allergies No Known Allergiesdocumented as [...] Encounter - Kelvin Simon RN - 11/04/2018 12:01 PM EDT Sent patient [employer] message with Dr. Joseph's previous message. * Telephone Encounter - William Joseph MD [...] ask Dr. Joseph. Please advise. * Result QuickNote - Kelvin Simon RN - 11/04/2018 11:31 AM EDT Please see telephone encounter for more information. * Result QuickNote - William Joseph MD - 11/04/2018 7:52 AM EDT Bilateral [...] Lipids slightly high for age. Risk of CA in next 10 years 27% which is [...] Internal Medicine William Joseph MD [address] [place] [facility] [place] [address] [phone] 02/04/2019 Office Visit Rheumatology Carlos Alberto Matthews MD [address] [facility] [place] [address] [phone] Scheduled Orders Name Type Priority Associated Diagnoses [...] AND OVER 08/02/2018 CKD GFR USE SMARTSET 95300 04/24/201910/22, 05/04/2016, 06/11/2014, Additional history exists CKD HGB USE SMARTSET 57193 10/23/201910/22, 07/06/2016, 05/04/2016, Additional history exists CKD PHOS USE SMARTSET 81560 10/23/2019 10/22/2018, 1 07/05/2015 DIABETES SCREEN EVERY [...] disease, chronic, stage III (GFR 30-59 ml/min) ([facility]) documented in this encounter Results * US RENAL (11/03/2018 2:46 PM EDT) Specimen Impressions Performed At IMPRESSION 1. Bilateral renal cysts. 2. No hydronephrosis. 3. Bilateral renal calcifications, nephrolithiasis versus vascular. [facility] Narrative Performed At EXAM 11/03/2018 [...] is obscured due to overlying bowel gas. [facility] Procedure Note Interface, Rad In [...] cysts, the largest within the medial midpole [id number] x 17 x 26 mm. Superior pole calcification measuring 5 mm. Bladder: Not evaluated due to underdistention. Aorta: Visualized portions are normal in caliber. Proximal aorta isobscured due to overlying bowel gas. IMPRESSION IMPRESSION 1. Bilateral renal cysts. 2. No hydronephrosis. 3. Bilateral renal calcifications, nephrolithiasis versus vascular. Performing Organization Address City/State[facility] Phone Number [facility] documented in this encounter Visit Diagnoses Diagnosis Mixed hyperlipidemia- Primary Kidney disease, chronic, stage III (GFR 30-59 ml/min) (HCC) Chronic kidney disease, Stage III (moderate) Increased PTH level Unspecified endocrine disorder documented in this encounter Advance Directives Documents on File Type Date Recorded Patient Carbonator Expl anation Advanced Directive Advanced Directive Advanced Directive Advanced Directive Advanced Directive Advanced Directive Advanced Directive
--- OUTSIDE RECORDS SUMMARY | 2023-01-29 05:11 | External Medical Summary | Summary of Care ---
Author Name Unknown Organization [place] [address] Care Team Providers Care Crane Operator Name Role Phone William Joseph MD Primary Care Provider + Reason for Visit * Reason Comments Sinus Problem Left Without Being Seen Encounter Details Date Type Department Care Team Description 10/10/2018 Convenient Care Visit [facility] [address] [place] [address] Nava Whitman PA-C [address] [place] [phone] Left without being seen* Allergies No Known Allergiesdocumented as of this encounter (statuses as of 10/10/2018) Medications Medication Sig Dispensed Refills Start Date [...] as of this encounter (statuses as of 10/10/2018) Active Problems Problem Noted Date Rheumatoid arthritis [...] as of this encounter (statuses as of 10/10/2018) Resolved Problems Problem Noted Date Resolved Date History of rheumatoid arthritis 09/04/2017 08/20/2018 History of rheumatoid arthritis 01/06/2016 07/27/2016 Kidney disease, chronic, stage III (GFR 30-59 ml /min) 08/09/2014 07/30/2017 Overview: Per CKD protocol #1 HTN, goal below 140/90 8 Kidney disease, chronic, stage III (GFR 30-59 ml /min) 03/24/2012 documented as of this encounter (statuses as of 10/10/2018) Immunizations Name Dates Previously Given Next Due [...] Vital Sign Reading Time Taken Blood Pressure 120/64 10/10/2018 3:09 PM EDT Pulse 85 10/10/2018 3:09 PM EDT Temperature 36.8 C (98.2 F) 10/10/2018 3 :09 PM EDT Respiratory Rate 16 10/10/2018 3:09 PM EDT Oxygen Saturation 96% 10/10/2018 3:0 9 PM EDT Inhaled Oxygen Concentration - - Weight 79.9 kg (176 lb 3.2 oz) 10/11/19 19 3:09 PM EDT Height 172.7 cm (5' 8") 10/10/2018 3:09 PM EDT Body Mass Index 26.79 10/10/2018 3:09 PM EDT documented in this encounter Progress Notes * Nava Whitman PA-C - 10/10/2018 4:30 PM EDT Increased wait due to urgent pt care need ahead of patient, Pt unable to wait longer for provider to be evaluated. Pt left without being seen by provider. Nava Whitman PA-C * Halley Smith LPN - 10/10/2018 4:09 PM EDT Patient left without being seen by the provider. documented in this encounter Nursing Notes * Halley Smith LPN - 10/10/2018 3:12 PM EDT Ignacio Garcia,is a 73 year old male, who presents to the walk in clinic today c/o sinus congestion,nasal drainage for a month. Did not use any OTC meds. documented in this encounter Plan of Treatment Upcoming Encounters Date Type Specialty Care Team Description 10/21/2018 Office Visit Internal Medicine William Joseph MD [address] [place] [address] [phone] 02/04/2019 Office Visit Rheumatology Carlos Alberto Matthews MD [address] [facility] [place] [address] [phone] Health Maintenance Due Date Last Done Comments CKD GFR USE SMARTSET 16473 11/02/201605/04, 06/11/2014, 01/01/2014, Additional history exists FOBT ANNUALLY,AGES 18-90 03/22/2017 03/22/2016, 09/26 CKD PHOS USE SMARTSET 58810 05/04/2017 05/04/2016 *BASIC METABOLIC PANEL (BMP) FOR HTN YEARLY 05/07/2017 CKD HGB USE SMARTSET 55885 07/06/201707/06, 05/04/2016, 01/01/2014, Additional history exists *DEPRESSION [...] as of this encounter Visit Diagnoses Diagnosis Left without being seen- Primary documented in this encounter Advance Directives Patient has advance care planning documents on file. For more information, please contact: [place] [phone]
--- OUTSIDE RECORDS SUMMARY | 2023-01-29 05:11 | External Medical Summary | Summary of Care ---
Author Name Unknown Organization [place] [address] Care Team Providers Care Asp Web Developer Name Role Phone William Joseph MD Primary Care Provider + Reason for Visit * Reason Comments Rheum Follow Up 4 month RA return Encounter Details Date Type Department Care Team Description 10/08/2018 Office Visit Rheumatology [facility] [address] [facility] [place] [address] Harry Brooks MD [address] [place] [address] [phone] Rheumatoid arthritis involving multiple sites with positive rheumatoid factor (HCC)*; Benign hypertension with CKD (chronic kidney disease) stage III ([facility]); Encounter for therapeutic drug monitoring; Bronchiectasis without complication ([facility]) Allergies No Known Allergiesdocumented as of this encounter (statuses as of 10/08/2018) Medications Medication Sig Dispensed Refills Start Date [...] as of this encounter (statuses as of 10/08/2018) Active Problems Problem Noted Date Rheumatoid arthritis [...] as of this encounter (statuses as of 10/08/2018) Resolved Problems Problem Noted Date Resolved Date History of rheumatoid arthritis 09/04/2017 08/20/2018 History of rheumatoid arthritis 01/06/2016 07/27/2016 Kidney disease, chronic, stage III (GFR 30-59 ml /min) 08/09/2014 07/30/2017 Overview: Per CKD protocol #1 HTN, goal below 140/90 8 Kidney disease, chronic, stage III (GFR 30-59 ml /min) 03/24/2012 documented as of this encounter (statuses as of 10/08/2018) Immunizations Name Dates Previously Given Next Due [...] Vital Sign Reading Time Taken Blood Pressure 142/84 10/08/2018 1:59 PM EDT Pulse - - Temperature 36.7 C (98.1 F) 10/08/2018 1:59 PM EDT Respiratory Rate - - Oxygen Saturation - - Inhaled Oxygen Concentration - - Weight 80.3 kg (177 lb) 10/08/2018 1:59 PM EDT Height - - Body Mass Index 27.14 10/08/2018 1:59 PM EDT documented in this encounter Progress Notes * Harry Brooks MD - 10/08/2018 2:35 PM EDT Progress Notes Today's Visit Note 10/08/2018 Harry Brooks MD Assessment Diagnosis Comment Rheumatoid arthritis involving multiple sites with positive rheumatoid factor (HCC) Bronchiectasis (HCC) (M05.79) Rheumatoid arthritis involving multiple sites with positive rheumatoid factor (HCC) (primary encounter diagnosis) (I12.9, N18.3) 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 Plan 1. continue arava 10mg daily 2. lab slips given to him to get drawn soon 3. pred as needed 4. RTC in 3 months History "Mr. Garcia is a 73 year old man last seen in Rheumatology today (10-08-18). He has h/o RA, 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), Bronchiectasis (HCC), Pernicious anemia, Bunion, left foot, Generalized osteoarthritis, and Primary osteoarthritis of right hip." Temporary History he did start arava and is taking 10mg daily. does feel it is helping overall but still having pain,some swelling. biggest issue is right wrist, right knee and hip. some swelling right wrist. he has not had any labs - PCP also ordered labs in July that he has not gotten yet either. no side effectsfrom arava. not interested in increasing the dose yet. using prednisone at times but not every day. Permanent History diagnosed with RA in 2001 but now burnt out, off DMARD therapy Condition Summary Date Description 08/20/2018 GEN INT MED [facility] POD[address] with Dr. Joseph (Physical exam, annual) 07/14/2018 [facility]OLOGY [facility] x 2 (06/11/18, 07/14/18). Most recent with Dr. Brooks (Rheumatoid arthritis involving multiple sites with positive rheumatoid factor (HCC)) Review of Systems (ROS) ROS Symptoms General None HEENT None MS/Neuro None Skin None Cardiopulmonary Chronic cough Gastrointestinal None Genitourinary None Medications Rheumatology Meds Other Meds LEFLUNOMIDE 10 MG Take 1 Tab by mouth daily. AMLODIPINE BESY-BENAZEPRIL HCL 5-20 MG PO CAPS Take 1 Cap by mouth daily. PREDNISONE 5 MG Take 1 Tab by mouth daily. BENZONATATE 100 MG PO CAPS Take 1 Cap by mouth 2 times aday as needed for Cough. 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 Vital Signs Vital Value Temp 98.1 F BP 142/84 Pulse Weight 177 Height BMI 27.14 Physical Exam System Findings General alert, well developed, well nourished, in no acute distress Skin normal color and texture, no rashes or significant lesions Musculoskeletal trace synovitis of the right wrist with pain - no other site of synovitis or tenderness, crepitus both knees Eyes PERRLA, conjunctiva pink and non-injected, sclera clear HENT normocephalic, atraumatic, normal nasal and oropharyngeal mucosa Heart regular rate and rhythm, no murmurs or rubs Lungs diffuse rhonchi noted on exam, no wheezes Abdomen soft, normal bowel sounds, no masses or organomegaly Outcome Measures Measure Today Previous MDHAQ 1.00 10/08/2018 2.33 07/14/2018 Pain 3 10/08/2018 7 07/14/2018 Fatigue 2 10/08/2018 2 07/14/2018 Stiffness 0 10/08/2018 2 07/14/2018 Patient Global 3 10/08/2018 6 07/14/2018 Rapid3 7.00 10/08/2018 15.33 07/14/2018 Tender Score 1 10/08/2018 10 07/14/2018 Swollen Score 1 10/08/2018 2 07/14/2018 Physician Global Score 2 10/08/2018 5 07/14/2018 Patient Global Score 3 10/08/2018 6 07/14/2018 CDAI 7 10/08/2018 23 07/14/2018 Care Gaps As Of 10/08/2018 Physician closed RA on DMARD RA, on [...] N/A Flu Vaccine Flu Vaccine Not Applicable closed Pneumococcal Vaccine 13 or 23 Pneumococcal Vaccine Completed open Zoster Vaccine (Shingrix) Needs First Shingrix Vaccine Treat To Target - Provider Goal Measure Current Target CDAI 7 10 Opportunity Patient no T2T changes required No T2T changes required - treatment changes if any per Resource Teacher discretion Signature HARRY BROOKS documented in this encounter Nursing Notes * Josi Romo LPN - 10/08/2018 2:00 PM EDT Chief Complaint Patient presents with Rheum Follow Up 4 month RA return documented in this encounter Plan of Treatment Upcoming Encounters Date Type Specialty Care Team Description 10/21/2018 Office Visit Internal Medicine William Joseph MD [address] [facility] [place] [address] [phone] 02/04/2019 Office Visit Rheumatology Harry Brooks MD [address] [place] [address] [phone] Scheduled Tests Name Priority Associated Diagnoses Order S chedule SEDIMENTATION RATE Routine Rheumatoid arthritis involving multiple sites with positive rheumatoid factor (HCC) Encounter for therapeutic drug monitoring Ordered: 10/08/2018 Health Maintenance Due Date Last Done Comments CKD GFR USE SMARTSET 18539 11/02/201605/04, 06/11/2014, 01/01/2014, Additional history exists FOBT ANNUALLY,AGES 18-90 03/22/2017 03/22/2016, 09/26 CKD PHOS USE SMARTSET 31283 05/04/2017 05/04/2016 *BASIC METABOLIC PANEL (BMP) FOR HTN YEARLY 05/07/2017 CKD HGB USE SMARTSET 99244 07/06/201707/06, 05/04/2016, 01/01/2014, Additional history exists *DEPRESSION [...] or unspecified Encounter for therapeutic drug monitoring Bronchiectasis without complication (HCC) Bronchiectasis without acute exacerbation documented in this encounter Advance Directives Patient has advance care planning documents on file. For more information, please contact: [place] [phone]
--- OUTSIDE RECORDS SUMMARY | 2023-01-29 05:11 | External Medical Summary | Summary of Care ---
Author Name Unknown Organization [place] [address] Care Team Providers Care Book Critic Name Role Phone William Joseph MD Primary Care Provider + Reason for Referral * (Routine) Status Reason Specialty Diagnoses / Procedures Referred By Contact Referred To Contact Pending Review Diagnoses Thyroid nodule Procedures US HEAD AND NECK William Joseph MD [address] [place] [address] Reason for Visit * Reason Comments Test Results Encounter Details Date Type Department Care Team Description 08/29/2018 Telephone General Internal Medicine [facility] [address] [place] [address] William Joseph MD [address] [place] [address] [phone] Test Results Allergies No Known Allergiesdocumented as of this encounter (statuses as of 08/29/2018) Medications Medication Sig Dispensed Refills Start Date [...] as of this encounter (statuses as of 08/29/2018) Active Problems Problem Noted Date Rheumatoid arthritis involvi ng multiple sites with positive rheumatoid factor 06/11/2018 Primary osteoarthritis of right hip 11/24 Generalized osteoarthritis 09/04/2017 Bunion, left foot 09/04/2017 Benign hypertension with CKD (chronic ki dney disease) stage III 07/30/2017 Bronchiectasis 12/08/2013 Thoracic aortic aneurysm 12/08/2013 Pernicious anemia 08/24/2010 documented as of this encounter (statuses as of 08/29/2018) Resolved Problems Problem Noted Date Resolved Date [...] as of this encounter (statuses as of 08/29/2018) Immunizations Name Dates Previously Given Next Due [...] Telephone Encounter - Edna Oneal OSA - 08/29/2018 3:52 PM EDT Pt will be contacted closer to that date to schedule. * Telephone Encounter - Nava Guzman LPN - 08/29/2018 11:08 AM EDT Patient aware and verbalized understanding, will comply * Telephone Encounter - Claudia Figueroa OSA - 08/29/2018 11:06 AM EDT Reason for patient's call: advise- returning phone call Caller was transferred to [facility] at the dedicated phone nurse line. * Telephone Encounter - Kelvin Simon RN - 08/29/2018 9:38 AM EDT Called, left message for patient to return call. Also sent MyG message for patient to call office. * Telephone Encounter - Kelvin Simon RN - 08/29/2018 9:37 AM EDT ----- Message from William Joseph MD sent at 08/29/2018 7:48 AM EDT ----- Nodules appear unchanged, recheck thyroid u/s 1 year. If notices increasing neck lumps, trouble breathing or swallowing, notify us sooner. documented in this encounter Plan of Treatment Upcoming Encounters Date Type Specialty Care Team Description 10/08/2018 Office Visit Rheumatology Carlos Alberto Matthews MD [address] [place] [address] Edmund, Nurse Andra Rheumatology [place] [address] [place] [address] 10/21/2018 Office Visit Internal Medicine William Joseph MD [address] [facility] [place] [address] Scheduled Tests Name Priority Associated Diagnoses Order S chedule US HEAD AND NECK Routine Thyroid nodule Expected: 08/30/2019 (Approximate), Expires: 09/29/2019 Health Maintenance Due Date Last Done Comments CKD GFR USE SMARTSET 59318 11/02/201605/04, 06/11/2014, 01/01/2014, Additional history exists FOBT ANNUALLY,AGES 18-90 03/22/2017 03/22/2016, 09/26 CKD PHOS USE SMARTSET 26181 05/04/2017 05/04/2016 *BASIC METABOLIC PANEL (BMP) FOR HTN YEARLY 05/07/2017 CKD HGB USE SMARTSET 12762 07/06/201707/06, 05/04/2016, 01/01/2014, Additional history exists *DEPRESSION [...] as of this encounter Visit Diagnoses Diagnosis Thyroid nodule- Primary Nontoxic uninodular goiter documented in this encounter Advance Directives Patient has advance care planning documents on file. For more information, please contact: [place] Hoffman [phone]
--- OUTSIDE RECORDS SUMMARY | 2023-01-29 05:11 | External Medical Summary | Summary of Care ---
Author Name Unknown Organization [place] [address] Care Team Providers Care Vp Information Technology Name Role Phone William Joseph MD Primary Care Provider + Reason for Referral * Evaluate & Treat - Unlimited Visits (Within 10 days (routine)) Status Reason Specialty Diagnoses / Procedures Referred By Contact Referred To Contact Pending Review Specialty Services Required Nephrology Diagnoses Kidney disease, chronic, stage III (GFR 30-59 ml/min) ([facility]) William Joseph MD [address] [place] [address] Reason for Visit * Reason Comments Test Results Encounter Details Date Type Department Care Team Description 11/04/2018 Telephone General Internal Medicine [facility] [address] [place] [address] William Joseph MD [address] [place] [address] [phone] Test Results Allergies No Known Allergiesdocumented as [...] Encounter - Kelvin Simon RN - 11/04/2018 11:30 AM EDT Called patient and informed him of Dr. Joseph's result message. He verbalized understanding of all information and will comply. Patient said he will call back to schedule nephrology appointment. FYI. * Telephone Encounter - Kelvin Simon RN - 11/04/2018 11:23 AM EDT ----- Message from William Joseph MD sent at 11/04/2018 7:52 AM EDT ----- Bilateral cysts, likely benign. Kidneys normal size. Has bilateral renal calcifications, perhaps stones or vascular calcifications. They are non- obstructed. Given decreased gfr, would ask nephrology to see dx CKD III to make sure no other work up needed. documented in this encounter Plan of Treatment Upcoming Encounters Date Type Specialty Care Team Description 12/17/2018 Office Visit Internal Medicine William Joseph MD [address] [place] [address], [place] [address] [phone] 02/04/2019 Office Visit Rheumatology Carlos Alberto Matthews MD [address] [place] [address] [phone] Scheduled Referrals Name Type Priority Associated Diagnoses Orde r Schedule NEPHROLOGY REFERRAL OP Referral Within 10 days (routine) Kidney disease, chronic, stage III (GFR 30-59 ml/min) (HCC) Ordered: 11/04/2018 Health Maintenance Due Date Last Done Comments FOBT ANNUALLY,AGES 18-90 03/22/2017 03/22/2016, 09/26 *DEPRESSION SCREENING, ANNUAL FOR PTS 18 AND OVER 08/02/2018 CKD GFR USE SMARTSET 06978 04/24/201910/22, 05/04/2016, 06/11/2014, Additional history exists CKD HGB USE SMARTSET 14320 10/23/201910/22, 07/06/2016, 05/04/2016, Additional history exists CKD PHOS USE SMARTSET 16025 10/23/2019 10/22/2018, 1 07/05/2015 DIABETES SCREEN EVERY [...] as of this encounter Visit Diagnoses Diagnosis Kidney disease, chronic, stage III (GFR 30-59 ml/min) (HCC)- Primary Chronic kidney disease, Stage III (moderate) documented in this encounter Advance Directives Documents on File Type Date Recorded Patient Dba Developer Expl anation Advanced Directive Advanced Directive Advanced Directive Advanced Directive Advanced Directive Advanced Directive Advanced Directive
--- OUTSIDE RECORDS SUMMARY | 2023-01-29 05:11 | External Medical Summary | Summary of Care ---
Author Name Unknown Organization [place] [address] Care Team Providers Care Concrete Mason Name Role Phone William Joseph MD Primary Care Provider + Reason for Referral * (Routine) Status Reason Specialty Diagnoses / Procedures Referred By Contact Referred To Contact Pending Review Diagnoses Thyroid nodule Procedures US HEAD AND NECK William Joseph MD [address] [place] [address] Reason for Visit * Reason Comments Test Results Encounter Details Date Type Department Care Team Description 08/29/2018 Telephone General Internal Medicine [facility] [address] [place] [address] William Joseph MD [address] [place] [address] [phone] Test Results Allergies No Known Allergiesdocumented as [...] Miscellaneous Notes * Telephone Encounter - Nava Guzman LPN - 08/29/2018 11:08 AM EDT Patient aware and verbalized understanding, will comply * Telephone Encounter - Claudia Figueroa OSA - 08/29/2018 11:06 AM EDT Reason for patient's call: advise- returning phone call Caller was transferred to [facility] at the dedicated phone nurse line. * [...] Office Visit Rheumatology Carlos Alberto Matthews MD [address] [place] [address] [phone] Edmund, Nurse Arrival Rheumatology [place] [address] [place] [address] [phone] 10/21/2018 Office Visit Internal Medicine William Joseph MD [address] [facility] [place] [address] [phone] Scheduled Tests Name Priority Associated Diagnoses Order S chedule US HEAD AND NECK Routine Thyroid nodule Expected: 08/30/2019 (Approximate), Expires: 09/29/2019 Health Maintenance Due Date Last Done Comments CKD GFR USE SMARTSET 38286 11/02/201605/04, 06/11/2014, 01/01/2014, Additional history exists FOBT ANNUALLY,AGES 18-90 03/22/2017 03/22/2016, 09/26 CKD PHOS USE SMARTSET 85895 05/04/2017 05/04/2016 *BASIC METABOLIC PANEL (BMP) FOR HTN YEARLY 05/07/2017 CKD HGB USE SMARTSET 60184 07/06/201707/06, 05/04/2016, 01/01/2014, Additional history exists *DEPRESSION [...] For more information, please contact: [place] Hoffman [phone]
--- OUTSIDE RECORDS SUMMARY | 2023-01-29 05:11 | External Medical Summary | Summary of Care ---
Author Name Unknown Organization [place] [address] Care Team Providers Care Remote Broadcast Technician Name Role Phone William Joseph MD Primary Care Provider + Reason for Referral * (Routine) Status Reason Specialty Diagnoses / Procedures Referred By Contact Referred To Contact Pending Review Diagnoses Thyroid nodule Procedures US HEAD AND NECK William Joseph MD [address] [place] [address] Reason for Visit * Reason Comments Status Check Encounter Details Date Type Department Care Team Description 07/16/2018 Telephone General Internal Medicine [facility] [address] [place], [place] [address] William Joseph MD [address] [place] [address] [phone] Status Check Allergies No Known Allergiesdocumented as of this encounter (statuses as of 07/17/2018) Medications Medication Sig Dispensed Refills Start Date [...] as of this encounter (statuses as of 07/17/2018) Active Problems Problem Noted Date Rheumatoid arthritis involvi ng multiple sites with positive rheumatoid factor 06/11/2018 Primary osteoarthritis of right hip 11/24 History of rheumatoid arthritis 09/05/19 18 Generalized osteoarthritis 09/04/2017 Bunion, left foot 09/04/2017 Benign hypertension with CKD (chronic ki dney disease) stage III 07/30/2017 Bronchiectasis 12/08/2013 Thoracic aortic aneurysm 12/08/2013 Pernicious anemia 08/24/2010 documented as of this encounter (statuses as of 07/17/2018) Resolved Problems Problem Noted Date Resolved Date [...] as of this encounter (statuses as of 07/17/2018) Immunizations Name Dates Previously Given Next Due [...] encounter Miscellaneous Notes * Telephone Encounter - Rupal Jacobs LPN - 07/17/2018 11:44 AM EST FYI * Telephone Encounter - Tamara Perla OSA - 07/17/2018 11:37 AM EST Pt returning call relayed information to pt. Pt didn't wish to Ultra sound at this time. Please advise * Telephone Encounter - Eliana Moreno LPN - 07/16/2018 2:03 PM EST Called, left message for patient to return call. If patient is willing [place] p [phone] Please schedule Thyroid us Dx nodule Priority first available Thank you * Telephone Encounter - William Joseph MD - 07/16/2018 12:12 PM EST Patient due for a thyroid u/s to follow thyroid nodule. Can we get this scheduled? documented in this encounter Plan of Treatment Upcoming Encounters Date Type Specialty Care Team Description 08/20/2018 Office Visit Internal Medicine William Joseph MD [address] [place] [address] [phone] 10/08/2018 Office Visit Rheumatology Carlos Alberto Matthews MD [address] [facility] [place], [place] [address] [phone] Nurse Andra Shaffer Rheumatology [place] [address] [facility] [place] [address] [phone] Scheduled Tests Name Priority Associated Diagnoses Order S chedule US HEAD AND NECK Routine Thyroid nodule Ordered: 07/16/2018 Health Maintenance Due Date Last Done Comments CKD GFR USE SMARTSET 74795 11/02/201605/04, 06/11/2014, 01/01/2014, Additional history exists FOBT ANNUALLY,AGES 18-90 03/22/2017 03/22/2016, 09/26 CKD PHOS USE SMARTSET 26603 05/04/2017 05/04/2016 *BASIC METABOLIC PANEL (BMP) FOR HTN YEARLY 05/07/2017 CKD HGB USE SMARTSET 71547 07/06/201707/06, 05/04/2016, 01/01/2014, Additional history exists DIABETES [...] For more information, please contact: [place] Hoffman [phone]
--- OUTSIDE RECORDS SUMMARY | 2023-01-29 05:11 | External Medical Summary | Summary of Care ---
Author Name Unknown Organization [place] [address] Care Team Providers Care Courtesy Booth Cashier Name Role Phone William Joseph MD Primary Care Provider + Reason for Visit * Reason Comments eRx-Medication Refill Encounter Details Date Type Department Care Team Description 12/09/2018 Refill General Internal Medicine [facility] [address] [place] [address] William Joseph MD [address] [place] [id number] Pernicious anemia Allergies No Known Allergiesdocumented as of this encounter (statuses as of 12/10/2018) Medications Medication Sig Dispensed Refills Start Date [...] 10/29/2018 Active vitamin b-12 (CYANOCOBALAMIN) 1000 MCG/ML injectionIndications:Per nicious anemia Inject 1,000 mcg into a large muscle every 30 days. 1 mL 5 12/09/2018 Active documented as of this encounter (statuses as of 12/10/2018) Active Problems Problem Noted Date Rheumatoid arthritis [...] as of this encounter (statuses as of 12/10/2018) Resolved Problems Problem Noted Date Resolved Date History of rheumatoid arthritis 09/04/2017 08/20/2018 History of rheumatoid arthritis 01/06/2016 07/27/2016 Kidney disease, chronic, stage III (GFR 30-59 ml /min) 08/09/2014 07/30/2017 Overview: Per CKD protocol #1 HTN, goal below 140/90 8 Kidney disease, chronic, stage III (GFR 30-59 ml /min) 03/24/2012 documented as of this encounter (statuses as of 12/10/2018) Immunizations Name Administration Dates Next Due Pneumococcal [...] encounter Miscellaneous Notes * Telephone Encounter - Naila Cantrell CPhT - 12/10/2018 1:39 PM EDT Refused Prescriptions: Disp Refills vitamin b-12 (CYANOCOBALAMIN) 1000 MCG/ML *1 mL 4 Sig: inject 1000mcg into a large muscle every 30 daysRefused By: Norma CANTRELL for Refusal: Duplicate Reque st * Telephone Encounter - Naila Cantrell CPhT - 12/10/2018 1:38 PM EDT Duplicate request. Thanks, Jade Cantrell Manager [facility] Pharm[facility] Refill Call Center 12/10/2018,1:39 PM documented in this encounter Plan of Treatment Upcoming Encounters Date Type Specialty Care Team Description 12/17/2018 Office Visit Internal Medicine William Joseph MD [address] [facility] [place] [address] [phone] 02/04/2019 Office Visit Rheumatology Carlos Alberto Matthews MD [address] [facility] [place], [place] [address] Health Maintenance Due Date Last Done Comments FOBT ANNUALLY,AGES 18-90 03/22/2017 03/22/2016, 05 *DEPRESSION SCREENING, ANNUAL FOR PTS 18 AND OVER 08/02/2018 Influenza Vaccine (FLU shot) (#1) 2018 05/22/2018, 06/05/2017, 05/04/2016, Additional history exists CKD GFR USE SMARTSET 40229 05/13/201911/11, 10/22/2018, 05/04/2016, Additional history exists CKD HGB USE SMARTSET 51470 10/23/201910/22, 07/06/2016, 05/04/2016, Additional history exists CKD PHOS USE SMARTSET 10050 10/23/2019 10/22/2018, 1 07/05/2015 DIABETES SCREEN EVERY [...] Documents on File Type Date Recorded Patient Drilling Machine Runner Expl anation Advanced Directive Advanced Directive Advanced Directive Advanced Directive Advanced Directive Advanced Directive Advanced Directive
--- OUTSIDE RECORDS SUMMARY | 2023-01-29 05:11 | External Medical Summary | Summary of Care ---
Author Name Unknown Organization [place] [address] Care Team Providers Care Security Incident Handler Name Role Phone William Chavez MD Primary Care Provider + Reason for Visit * Reason Comments Lucho Med Renewal Encounter Details Date Type Department Care Team Description 08/08/2018 Refill General Internal Medicine [facility] [address] [place] [address] William Chavez MD [address] [place] [address] [phone] 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) Allergies No Known Allergiesdocumented as of this encounter (statuses as of 08/08/2018) Medications Medication Sig Dispensed Refills Start Date End Date Status fluticasone (FLOVENT HFA) 44 MCG/ACT inhalerIndications: Bronchiectasis (HCC) Inhale 1 Puff by mouth 2 times a day. 10.6 g 4 05/07/2018 Active vitamin b-12 (CYANOCOBALAMIN) 1000 MCG/ML injectionIndication [...] mouth daily. 30 Tab 5 07/14/2018 Active amlodipine-benazepr il 5-20 mg per cap (LOTREL) 5-20 MG per capsuleIndications: 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) Take 1 Cap by mouth daily. 30 Cap 11 08/08/2018 Active amlodipine-benazepr il 5-20 mg per cap (LOTREL) 5-20 MG per capsuleIndications: 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) Take 1 Cap by mouth daily. 30 Cap 11 07/30/2017 08/08/2018 Discontinued documented as of this encounter (statuses as of 08/08/2018) Active Problems Problem Noted Date Rheumatoid arthritis involvi ng multiple sites with positive rheumatoid factor 06/11/2018 Primary osteoarthritis of right hip 11/24 History of rheumatoid arthritis 09/05/19 18 Generalized osteoarthritis 09/04/2017 Bunion, left foot 09/04/2017 Benign hypertension with CKD (chronic ki dney disease) stage III 07/30/2017 Bronchiectasis 12/08/2013 Thoracic aortic aneurysm 12/08/2013 Pernicious anemia 08/24/2010 documented as of this encounter (statuses as of 08/08/2018) Resolved Problems Problem Noted Date Resolved Date [...] as of this encounter (statuses as of 08/08/2018) Immunizations Name Dates Previously Given Next Due [...] Telephone Encounter - William Chavez MD - 08/08/2018 3:57 PM EDT Signed Prescriptions: Disp Refills amlodipine-benazepril 5-20 mg per cap (LOT*30 Cap 11 Sig: Take 1 Cap by mouth daily. Authorizing Provider: WILLIAM CHAVEZ * Telephone Encounter - Patricia Flor LPN - 08/08/2018 2:48 PM EDT Pending Prescriptions: Disp Refills amlodipine-benazepril 5-20 mg per cap (LO*30 Cap 11 Sig: Take 1 Cap by mouth daily. Last Office Visit: 07/30/2017 Next Office Visit: 08/20/2018 Scheduled Provider(s): William Chavez MD Last date the medication was ordered: 07/30/17 Patient Active Problem List Diagnosis Code Pernicious anemia D51.0 Bronchiectasis (HCC) J47.9 Thoracic aortic aneurysm (HCC) I71.2 Benign hypertension with CKD (chronic kidney disease) stage III ([facility]) I12.9, N18.3 History of rheumatoid arthritis Z87.39 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 Bunion, left foot M21.612 Primary osteoarthritis of right hip M16.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 ([facility]) M05.79 Labs: CREATININE, RD URINE(mg/dL) Nikita Dt/Tm Resulted Value Status 08/03/16 1:51P 08/03/16 94 FINAL POTASSIUM(mmol/L) Nikita Dt/Tm Resulted Value Status 05/04/16 12:09P 05/04/16 4.6 FINAL TSH(uIU/mL) Nikita Dt/Tm Resulted Value Status 06/24/13 12:14P 06/24/13 0.82 FINAL LDL (CALCULATED)(mg/dL) Nikita Dt/Tm Resulted Value Status 05/04/16 12:09P 05/04/16 119 FINAL LDL DIRECT(REFLEX)(mg/dL) Nikita Dt/Tm Resulted Value Status 05/04/16 12:09P 05/04/16 FINAL Value: NOT APPLICABLE ALT(U/L) Nikita Dt/Tm Resulted Value Status 05/04/16 12:09P 05/04/16 10 FINAL Hemoglobin AIC Results: No HEMOGLOBIN, A1C components found * Telephone Encounter - Patricia Flor LPN - 08/08/2018 2:48 PM EDT Message from Martinezisingace: ----- Message from Provider, Lucho sent at 08/08/2018 2:42 PM EDT ----- Ignacio Jay Jose would like a refill of the following medications: amlodipine-benazepril 5-20 mg per cap (LOTREL) 5-20 MG per capsule [William Chavez MD] Preferred pharmacy: [id number] documented in this encounter Plan of Treatment Upcoming Encounters Date Type Specialty Care Team Description 08/20/2018 Office Visit Internal Medicine William Chavez MD [address] [place] [address] [phone] 10/08/2018 Office Visit Rheumatology Carlos Alberto Matthews MD [address] [facility] [place] [address] [phone] Nurse Andra Shaffer Rheumatology [place] [address] [facility], [place] [id number] Health Maintenance Due Date Last Done Comments CKD GFR USE SMARTSET 36460 11/02/201605/04, 06/11/2014, 01/01/2014, Additional history exists FOBT ANNUALLY,AGES 18-90 03/22/2017 03/22/2016, 09/26 CKD PHOS USE SMARTSET 59732 05/04/2017 05/04/2016 *BASIC METABOLIC PANEL (BMP) FOR HTN YEARLY 05/07/2017 CKD HGB USE SMARTSET 32721 07/06/201707/06, 05/04/2016, 01/01/2014, Additional history exists *DEPRESSION [...] unspecified documented in this encounter Advance Directives Patient has advance care planning documents on file. For more information, please contact: [place] Hoffman [phone]
--- OUTSIDE RECORDS SUMMARY | 2023-01-29 05:11 | External Medical Summary | Summary of Care ---
Author Name Unknown Organization [place] [address] Care Team Providers Care Repairer And Checker Name Role Phone William Joseph MD Primary Care Provider + Reason for Referral * (Routine) Status Reason Specialty Diagnoses / Procedures Referred By Contact Referred To Contact Pending Review Diagnoses Kidney disease, chronic, stage III (GFR 30-59 ml/min) (HCC) Procedures RENAL William Joseph MD [address] [place] [address] Reason for Visit * Reason Comments Test Results Encounter Details Date Type Department Care Team Description 10/29/2018 Telephone General Internal Medicine [facility] [address] [place], [place] [phone] William Joseph MD [address] [place] [phone] Test Results Allergies No Known Allergiesdocumented as [...] Lipids slightly high for age. Risk of NM in next 10 years 27% which is [...] Visit Internal Medicine William Joseph MD [address] [facility] [place] [address] [phone] 02/04/2019 Office Visit Rheumatology Carlos Alberto Matthews MD [address] [facility] [place] [address] [phone] Scheduled Orders Name Type Priority Associated Diagnoses Orde r Schedule BASIC METAB PANEL, BMP Lab Routine Kidney disease, chronic, stage III (GFR 30-59 ml/min) ([facility]) Expected: 11/05/2018 (Approximate), Expires: 10/30/2019 25-HYDROXY VITAMIN [...] AND OVER 08/02/2018 CKD GFR USE SMARTSET 38670 04/24/201910/22, 05/04/2016, 06/11/2014, Additional history exists CKD HGB USE SMARTSET 10473 10/23/201910/22, 07/06/2016, 05/04/2016, Additional history exists CKD PHOS USE SMARTSET 25180 10/23/2019 10/22/2018, 1 07/05/2015 DIABETES SCREEN EVERY [...] Documents on File Type Date Recorded Patient Planer Offbearer Expl anation Advanced Directive Advanced Directive Advanced Directive Advanced Directive Advanced Directive Advanced Directive Advanced Directive
--- OUTSIDE RECORDS SUMMARY | 2023-01-29 05:11 | External Medical Summary | Summary of Care ---
Author Name Unknown Organization [place] [address] Care Team Providers Care Underground Repairer Name Role Phone William Joseph MD Primary Care Provider + Reason for Visit * Reason Comments Sinus Problem Left Without Being Seen Encounter Details Date Type Department Care Team Description 10/10/2018 Convenient Care Visit [facility] [address] [place] [address] Nava Whitman PA-C [address] [place] [id number] Left without being seen* Allergies No [...] documented in this encounter Progress Notes * Halley Smith LPN - 10/10/2018 4:09 [...] Office Visit Internal Medicine William Joseph MD [address] [place] [address], [place] [address] [phone] 02/04/2019 Office Visit Rheumatology Carlos Alberto Matthews MD [address] [facility] [place], [place] [id number] Health Maintenance Due Date Last Done Comments CKD GFR USE SMARTSET 10437 11/02/201605/04, 06/11/2014, 01/01/2014, Additional history exists FOBT ANNUALLY,AGES 18-90 03/22/2017 03/22/2016, 09/26 CKD PHOS USE SMARTSET 01394 05/04/2017 05/04/2016 *BASIC METABOLIC PANEL (BMP) FOR HTN YEARLY 05/07/2017 CKD HGB USE SMARTSET 93942 07/06/201707/06, 05/04/2016, 01/01/2014, Additional history exists *DEPRESSION [...] For more information, please contact: [place] [phone]
--- OUTSIDE RECORDS SUMMARY | 2023-01-29 05:12 | External Medical Summary ---
Author Name Unknown Address [facility] [place] [id number] Phone Organization K01:[facility] [address] [facility] [address] Laboratory Report Ordering Provider Test Date Status KATHY RAE MD 08/03/2016 13:51:00 Final Obs # Observation Date Value Abnormality Reference Status Performing Location 0 Albumin, Urine 21:58 8.64 Final [place] [address] [address] [facility] [address] 1 Creatinine [Moles/volume] in Urine 7 21:58 94 Final 2 Microalbumin / Creatinine Ratio 21:58 92 Above high normal <30 Final
--- OUTSIDE RECORDS SUMMARY | 2023-01-29 05:12 | External Medical Summary | Summary of Care ---
Author Name Unknown Organization [place] [address] Care Team Providers Care Barrel Drum Cutter Name Role Phone William Chavez MD Primary Care Provider + Reason for Visit * Reason Comments Lucho Med Renewal Encounter Details Date Type Department Care Team Description 06/05/2018 Refill General Internal Medicine [facility] [address] [place] [address] William Chavez MD [address] [place] [address] [phone] H/O rheumatoid arthritis Allergies No Known Allergiesas of this encounter Medications Medication Sig Dispensed Refills Start Date End Date Status amlodipine-benazepr il 5-20 mg per cap (LOTREL) 5-20 MG per capsuleIndications: 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) Take 1 Cap by mouth daily. 30 Cap 11 07/30/2017 Active fluticasone (FLOVENT HFA) 44 MCG/ACT inhalerIndications: [...] mouth daily. 30 Tab 1 06/05/2018 Active PredniSONE (DELTASONE) 5 MG TabletIndications:H /O rheumatoid arthritis TAKE ONE TABLET BY MOUTH ONE TIME DAILY 30 Tab 1 01/21/2018 06/05/2018 Discontinued as of this encounter Active Problems Problem Noted Date Primary osteoarthritis of right hip 11/24 History of rheumatoid arthritis 09/05/19 18 Generalized osteoarthritis 09/04/2017 Bunion, left foot 09/04/2017 Benign hypertension with CKD (chronic ki dney disease) stage III 07/30/2017 Bronchiectasis 12/08/2013 Thoracic aortic aneurysm 12/08/2013 Pernicious anemia 08/24/2010 as of this encounter Resolved Problems Problem Noted Date Resolved Date History of rheumatoid arthritis 01/06/2016 07/27/2016 Kidney disease, chronic, stage III (GFR 30-59 ml /min) 08/09/2014 07/30/2017 Overview: Per CKD protocol #1 Encounter for long-term (current) use of medicat ions 07/27/2010 01/06/2016 Overview: ICD-10 update of inactive term ARTHRITIS,RHEUMATOID 05/27/2000 01/06/2016 HTN, goal below 140/90 8 Kidney disease, chronic, stage III (GFR 30-59 ml /min) 03/24/2012 as of this encounter Immunizations Name Dates Previously Given Next Due [...] older)(Boostrix) 01/10/2015 Varicella Zoster Vaccine (Adult) 01/10/2015 as of this encounter Social History Tobacco [...] file Travel History Travel Start Travel End as of this encounter Miscellaneous Notes * Telephone Encounter - William Chavez MD - 06/05/2018 3:45 PM EST Signed Prescriptions: Disp Refills PredniSONE (DELTASONE) 5 MG Tablet 30 Tab 1 Sig: Take 1 Tab by mouth daily. Authorizing Provider: WILLIAM CHAVEZ * Telephone Encounter - Nava Guzman LPN - 06/05/2018 2:43 PM EST Pending Prescriptions: Disp Refills PredniSONE (DELTASONE) 5 MG Tablet 30 Tab 1 Sig: Take 1 Tab by mouth daily. Last Office Visit: 07/30/2017 Next Office Visit: No Future Appointments Last date the medication was ordered: 01/21/18 Patient Active Problem List Diagnosis Code Pernicious anemia D51.0 Bronchiectasis ([facility]) J47.9 Thoracic aortic aneurysm ([facility]) I71.2 Benign hypertension with CKD (chronic kidney disease) stage III ([facility]) I12.9, N18.3 History of rheumatoid arthritis Z87.39 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 Bunion, left foot M21.612 Primary osteoarthritis of right hip M16.11 Labs: CREATININE, RD URINE(mg/dL) Nikita Dt/Tm Resulted Value Status 08/03/16 1:51P 08/03/16 94 FINAL POTASSIUM(mmol/L) Nikita Dt/Tm Resulted Value Status 05/04/16 12:09P 05/04/16 4.6 FINAL TSH(uIU/mL) Inkita Dt/Tm Resulted Value Status 06/24/13 12:14P 06/24/13 0.82 FINAL LDL (CALCULATED)(mg/dL) Nikita Dt/Tm Resulted Value Status 05/04/16 12:09P 05/04/16 119 FINAL LDL DIRECT(REFLEX)(mg/dL) Nikita Dt/Tm Resulted Value Status 05/04/16 12:09P 05/04/16 FINAL Value: NOT APPLICABLE ALT(U/L) Nikita Dt/Tm Resulted Value Status 05/04/16 12:09P 05/04/16 10 FINAL Hemoglobin AIC Results: No HEMOGLOBIN, A1C components found * Telephone Encounter - Nava Guzman LPN - 06/05/2018 2:42 PM EST Message from Lucho: ----- Message from Lucho Canales sent at 06/05/2018 1:25 PM EST ----- Ignacio Garcia would like a refill of the following medications: PredniSONE (DELTASONE) 5 MG Tablet [Wililam Chavez MD] Preferred pharmacy: [id number]- [place] in this encounter Plan of Treatment Upcoming Encounters Date Type Specialty Care Team Description 06/07/2018 Office Visit Family Medicine Rosanna Ortega PA-C [address] [place] [address] [phone] 06/11/2018 Office Visit Rheumatology Carlos Alberto Matthews MD [address] [place] [address] [phone] Edmund, Nurse Andra Rheumatology Walter [address] [place] [address] [phone] Health Maintenance Due Date Last Done Comments ABDOMINAL AORTIC ANEURYSM (A AA) SCREENING 2008 CKD GFR USE SMARTSET 65303 11/02/201605/04, 06/11/2014, 01/01/2014, Additional history exists CKD PHOS USE SMARTSET 01038 05/04/2017 05/04/2016 *BASIC METABOLIC PANEL (BMP) FOR HTN YEARLY 05/07/2017 *COLORECTAL CANCER SCREENING (COLONOSCOPY 10 YEARS; SIGMOIDOSCOPY 5 YEARS; COLOGUARD 3 YEARS; FOBT 1 YEAR),AGES 50-75 06/30/2017 03/22/2016, 10/23/2012 CKD HGB USE SMARTSET 05158 07/06/201707/06, 05/04/2016, 01/01/2014, Additional history exists CKD URINE PROTEIN/CREATININE RATION OR URINE MICROALBUMIN YEARLY USE SMARTSET 75781 08/03/2017 08/03/2016, 01/01/2014 DIABETES SCREEN EVERY 3 YRS- AGE 45 AND ABOVE 05/04/2019 05/04/2016, 06/11/2014, 01/01/2014, Additional history exists DTaP,Tdap,and Td Vaccines (2 - Td) 01/10/20252014 PNEUMOCOCCAL ADULT 65 YRS AND OVER Completed 2015, 06/08/2013 Influenza Vaccine (FLU shot) Completed , 06/05/2017, 05/04/2016, Additional history exists as of this encounter Implants Not on fileas of this encounter Visit Diagnoses Diagnosis H/O rheumatoid arthritis Personal history of arthritis in this encounter Advance Directives Patient has advance care planning documents on file. For more information, please contact: [place] [phone]
--- OUTSIDE RECORDS SUMMARY | 2023-01-29 05:12 | External Medical Summary ---
Author Name Unknown Address [address] [place] [address] Phone Organization K0G:[facility] Faviola Marlow [address] [place] [address] Laboratory Report Ordering Provider Test Date Status KATHY RAE MD 05/04/2016 12:09:00 Final Obs # Observation Date Value Abnormality Reference Status Performing Location 0 Phosphate 05/04/2016 13:15 3.1 2.5-4.8 Final [facility] Faviola Marlow [address] [place] [address]
--- OUTSIDE RECORDS SUMMARY | 2023-01-29 05:12 | External Medical Summary | Summary of Care ---
Author Name Unknown Organization [place] [address] Phone Care Team Providers Care Candy Supervisor Name Role Phone William Joseph MD Primary Care Provider + Reason for Referral * Evaluate & Treat - Unlimited Visits (Within 10 days (routine)) Status Reason Specialty Diagnoses / Procedures Referred By Contact Referred To Contact Pending Review Specialty Services Required Rheumatology Diagnoses Primary osteoarthritis of both hands William Joseph MD [address] [place] [address] Reason for Visit * Reason Comments WOUND RECHECK Encounter Details Date Type Department Care Team Description 07/30/2017 Office Visit General Internal Medicine [facility] [address] [place] [address] William Joseph MD [address] [place] [address] [phone] Benign hypertension with CKD (chronic kidney disease) stage III*;Bronchiectasis without complication (HCC);Thoracic aortic aneurysm without rupture (HCC);History of rheumatoid arthritis;Primary osteoarthritis of both hands;Screening for prostate cancer Allergies No Known Allergiesas of this encounter Medications Prescription Sig. Disp. Refills Start Date End Date Status PredniSONE (DELTASONE) 5 MG TabletIndications:H/ O rheumatoid arthritis Take 1 Tab by mouth daily. 30 Tab 2 01/29/2017 Active benzonatate (TESSALON PERLES) 100 MG CapsuleIndications:C ough Take 1 Cap by mouth 2 times a day as needed for Cough. Do not cut, crush, or chew. 50 Cap 1 01/29/2017 Active FLOVENT HFA 44 MCG/ACT inhalerIndications:B ronchiectasis (HCC) INHALE ONE PUFF BY MOUTH TWICE DAILY 10.6 g 4 03/25/2017 Active vitamin b-12 (CYANOCOBALAMIN) 1000 MCG/ML injectionIndications :Pernicious anemia Inject 1,000 mcg into a large muscle every 30 days. 1 mL 5 04/23/2017 Active amlodipine-benazepri l 5-20 mg per cap (LOTREL) 5-20 MG per capsuleIndications:B enign hypertension with CKD (chronic kidney disease) stage III Take 1 Cap by mouth daily. 30 Cap 11 07/30/2017 Active amlodipine-benazepri l 5-20 mg per cap (LOTREL) 5-20 MG per capsuleIndications:H TN, goal below 140/90 Take 1 Cap by mouth daily. 30 Cap 4 01/29/2017 07/30/2017 Discontinued as of this encounter Active Problems Problem Noted Date Benign hypertension with CKD (chronic ki dney disease) stage III 07/30/2017 Bronchiectasis (HCC) 12/08/2013 Thoracic aortic aneurysm (HCC) 4 Pernicious anemia 08/24/2010 as of this encounter Resolved Problems Problem Noted Date Resolved Date History of rheumatoid arthritis 01/06/2016 07/27/2016 Kidney disease, chronic, stage III (GFR 30-59 ml /min) 08/09/2014 07/30/2017 Overview: Per CKD protocol #1 Encounter for long-term (current) use of medicat ions 07/27/2010 01/06/2016 Overview: ICD-10 update of inactive term ARTHRITIS,RHEUMATOID (HCC) 05/27/200001/05 HTN, goal below 140/90 8 Kidney disease, chronic, stage III (GFR 30-59 ml /min) 03/24/2012 as of this encounter Immunizations Name Dates Previously Given Next Due Pneumococcal Conjugate Vacc, 13 Valent (Prevnar) 07/13/2015 Pneumococcal Polyvalent Vacc (Pneumovax) 06/08/2013,03/19/2013(Deferred: Patient Refused - not interested) Seasonal Influenza, Quadriva lent, No Preserve, IM 05/04/2016 Seasonal Influenza, Trivalen t, with Preserve, 3yr & Above, Split 06/05/2017,06/12/2015,06/01/2014,05/27,03/19/2013(Deferred: Patient Refused - not interested) TDAP (age 10 and older)(Boostrix) 01/10/2015 Varicella Zoster Vaccine (Adult) 01/10/2015 as of this encounter Social History Tobacco Use Types Packs/Day Years Used Date Former Smoker Cigarettes 2 35 Quit: 06/25 Smokeless Tobacco: Never Used Tobacco Cessation:Counseling Given: No Alcohol Use Drinks/Week oz/Week Comments Yes 7 Mixed drink(s) containing 1.5 shots of alcohol 3.5 occas sional Sex Assigned at Date Recorded Not on file as of this encounter Last Filed Vital Signs Vital Sign Reading Time Taken Blood Pressure 138/80 07/30/2017 2:05 PM EST Pulse 68 07/30/2017 2:05 PM EST Temperature 36.2 C (97.1 F) 07/30/2017 2 :05 PM EST Respiratory Rate 16 07/30/2017 2:05 PM EST Oxygen Saturation - - Inhaled Oxygen Concentration - - Weight 84 kg (185 lb 3.2 oz) 07/30/2017 2:05 PM EST Height 175.3 cm (5' 9") 07/30/2017 2:05 PM EST Body Mass Index 27.35 07/30/2017 2:05 PM EST in this encounter Progress Notes * William Joseph MD - 07/30/2017 2:36 PM EST Formatting of this note may be different from the original. Chief Complaint Patient presents with WOUND RECHECK SUBJECTIVE: Ignacio Garcia is a 72 year old male with PMH as below who presents for f/u HTN, bronchectasis, anemia/low b12, h/o RA. He feels well. No sob, lloyd. Cough is controlled. He is compliant with meds. Tries to be active. He is overdue to see rheum for h.o RA and hand OA which he feels latter worse with DIP nodules. No falls. He is compliant with inhalers for bronchiectasis and no exacerbating issues. 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 Patient Active Problem List Diagnosis Code Pernicious anemia D51.0 Bronchiectasis (HCC) J47.9 Thoracic aortic aneurysm (HCC) I71.2 Benign hypertension with CKD (chronic kidney disease) stage III I12.9, N18.3 Current Outpatient Prescriptions Medication Sig Dispense Refill amlodipine-benazepril 5-20 mg per cap (LOTREL) 5-20 MG per capsule Take 1 Cap by mouth daily. 30 Cap 11 benzonatate (TESSALON PERLES) 100 MG Capsule Take 1 Cap by mouth 2 times a day as needed for Cough. Do not cut, crush, or chew. 50 Cap 1 FLOVENT HFA 44 MCG/ACT inhaler INHALE ONE PUFF BY MOUTH TWICE DAILY 10.6 g 4 PredniSONE (DELTASONE) 5 MG Tablet Take 1 Tab by mouth daily. 30 Tab 2 vitamin b-12 (CYANOCOBALAMIN) 1000 MCG/ML injection Inject 1,000 mcg into a large muscle every 30 days. 1 mL 5 Review of patient's allergies indicates: No Known Allergies Health Maintenance Due Topic Date Due ABDOMINAL AORTIC ANEURYSM (AAA) SCREENING 2008 *ADVANCE DIRECTIVE NOT ON FILE 01/23/2015 CKD GFR USE SMARTSET 58212 11/02/2016 Influenza Vaccine (FLU shot) (1) 12/25/2016 CKD LDL USE SMARTSET 67223 (STAGE 3) [place] 86453 (STAGE 4) 05/04/2017 CKD PHOS USE SMARTSET 80682 05/04/2017 *BASIC METABOLIC PANEL (BMP) FOR HTN YEARLY 05/07/2017 *COLORECTAL CANCER SCREENING (COLONOSCOPY 10 YEARS; SIGMOIDOSCOPY 5 YEARS; COLOGUARD 3 YEARS; FOBT 1 YEAR),AGES 50-75 06/30/2017 CKD HGB USE SMARTSET 41068 07/06/2017 CKD URINE PROTEIN/CREATININE RATION OR URINE MICROALBUMIN YEARLY USE SMARTSET 07488 08/03/2017 ROS: CONSTITUTIONAL: No change in weight, No [...] h/o goiter or thyroid disease PULMONARY: No recent change in breathing CARDIOVASCULAR: [...] bloating or early satiety and No dysphagia MALE: No dysuria, No frequency, No incontinence and No urgency All OTHER SYSTEMS NEGATIVE EXCEPT STATED IN HPI ABOVE, OVER 10 SYSTEMS REVIEWED I reviewed social, PMH, PSH, and family history and updated where needed. 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 [employer] Social History Main Topics Smoking status: Former Smoker Packs/day: 2.00 Years: 35.00 Types: Cigarettes Quit date: 06/25/1990 Smokeless tobacco: Never Used Alcohol use 3.5 oz/week 7 Mixed drink(s) containing 1.5 shots of alcohol per week Comment: occassional Drug use: No Sexual activity: Yes Partners: Male Other Topics Concern Seat Belt No Social History Narrative Past Medical History: Diagnosis Date Bronchiectasis (HCC) 12/08/2013 Encounter for long-term (current) use of other medications 07/27/2010 History of rheumatoid arthritis 01/06/2016 HTN, goal below 140/90 Pernicious anemia 08/24/2010 Past Surgical History: Procedure Laterality Date DENTAL SURGERY PROCEDURE NEC 1980 REMOVE TONSILS & ADENOIDS, UNDER 12 1954 Family History Problem Relation Age of Onset osteoarthritis [Other] [OTHER] Mother Hypertension Mother OBJECTIVE: PHYSICAL EXAM: BP 138/80 | Pulse 68 | Temp (Src) 97.1 (Tympanic) | Resp 16 | Ht 5' 9" (1.753m) | Wt 185 lbs 3.2 oz(84.006kg) | BMI 27.35 kg/m | BSA 2.02 m General: alert, healthy, no distress, well nourished and well developed Head: Normocephalic, No masses, lesions, tenderness or abnormalities Eye Exam: PERRLA, Conjunctiva are pink and non-injected, sclera clear Ears: External ears normal, Canals clear, TM's Normal Nose: no mucosal erythema, no mucosal edema, no purulent discharge, no septal hematoma Oropharynx: no exudate, no erythema, lips, buccal mucosa, and tongue normal and mucous membranes are moist Heart: regular rate & rhythm, no murmurs, no gallops, PMI non-displaced, S-1 normal and S-2 normal Lungs: normal respiratory rate and rhythm, lungs clear to auscultation Abdomen: abdomen soft, non-tender, normal bowel sounds and no masses or organomegaly Extremities: no edema Neuro Exam: no focal motor/sensory deficits, gait normal Psych: normal affect, no flight of ideas or tangential thought, good eye contact, no pressured speech I reviewed last labs ASSESSMENT: I12.9,N18.3 Benign hypertension with CKD (chronic kidney disease) stage III (primary encounter diagnosis) J47.9 Bronchiectasis without complication (HCC) I71.2 Thoracic aortic aneurysm without rupture (HCC) Z87.39 History of rheumatoid arthritis M19.041,M19.042 Primary osteoarthritis of both hands Z12.5 Screening for prostate cancer PLAN: I12.9, N18.3 Benign hypertension with ckd (chronic kidney disease) stage iii (primary encounter diagnosis) Plan:controlled cont med Compr metab panel Lipid panel with direct ldl if tg above 400 mg/dl Phosphorus Cbc/diff Albumin / creatinine ratio, urine Amlodipine besy-benazepril hcl 5-20 mg po caps Sig:Take 1 cap by mouth daily. J47.9 Bronchiectasis without complication (hcc) Controlled Cont med I71.2 Thoracic aortic aneurysm without rupture (hcc) Declines f/u CT Z87.39 History of rheumatoid arthritis Will re-evaul with rheum M19.041, M19.042 Primary osteoarthritis of both hands Plan: Rheumatology referral op Z12.5 Screening for prostate cancer Plan: Psa Follow up: Return in about 6 months (around 01/30/2018), or if symptoms worsen or fail to improve, for f/u 40 min . Declines other HM due William Joseph MD in this encounter Nursing Notes * Lea Flowers LPN - 07/30/2017 2:05 PM EST Patient presents today for 6 month recheck. in this encounter Plan of Treatment Upcoming Encounters Date Type Specialty Care Team Description 09/04/2017 Office Visit Rheumatology Carlos Alberto Matthews MD [address] [place] [address] [phone] 02/04/2018 Office Visit Internal Medicine William Joseph MD [address] [facility] [place] [address] [phone] Scheduled Tests Name Priority Associated Diagnoses Order S chedule COMPR METAB PANEL Routine Benign hypertension with CKD (chronic kidney disease) stage III Expected: 07/30/2017 (Approximate), Expires: 07/30/2018 LIPID PANEL WITH DIRECT LDL IF TG ABOVE 400 MG/DL Routine Benign hypertension with CKD (chronic kidney disease) stage III Expected: 07/30/2017 (Approximate), Expires: 07/30/2018 PHOSPHORUS Routine Benign hypertension with CKD (chronic kidney disease) stage III Expected: 07/30/2017 (Approximate), Expires: 07/30/2018 CBC/DIFF Routine Benign hypertension with CKD (chronic kidney disease) stage III Expected: 07/30/2017 (Approximate), Expires: 07/30/2018 PSA Routine Screening for prostate cancer Expected: 07/30/2017 (Approximate), Expires: 07/30/2018 ALBUMIN / CREATININE RATIO, URINE Routine Benign hypertension with CKD (chronic kidney disease) stage III Expected: 07/30/2017 (Approximate), Expires: 07/30/2018 Scheduled Referrals Name Priority Associated Diagnoses Order S chedule RHEUMATOLOGY REFERRAL OP Within 10 days (routine) Primary osteoarthritis of both hands Ordered: 07/30/2017 Health Maintenance Due Date Last Done Comments ABDOMINAL AORTIC ANEURYSM (A AA) SCREENING 2008 *ADVANCE DIRECTIVE NOT ON FILE 01/23/2015 CKD GFR USE SMARTSET 79064 11/02/201605/04, 06/11/2014, 01/01/2014, Additional history exists Influenza Vaccine (FLU shot) (#1) 2016 05/04/2016, 06/12/2015, 06/01/2014, Additional history exists CKD LDL USE SMARTSET 39450 ( STAGE 3) OR 04609 (STAGE 4) 05/04/2017 05/04/2016, 06/11/2014, 01/01/2014, Additional history exists CKD PHOS USE SMARTSET 17134 05/04/2017 05/04/2016 *BASIC METABOLIC PANEL (BMP) FOR HTN YEARLY 05/07/2017 *COLORECTAL CANCER SCREENING (COLONOSCOPY 10 YEARS; SIGMOIDOSCOPY 5 YEARS; COLOGUARD 3 YEARS; FOBT 1 YEAR),AGES 50-75 06/30/2017 03/22/2016, 10/23/2012 CKD HGB USE SMARTSET 51190 07/06/201707/06, 05/04/2016, 01/01/2014, Additional history exists CKD URINE PROTEIN/CREATININE RATION OR URINE MICROALBUMIN YEARLY USE SMARTSET 36743 08/03/2017 08/03/2016, 01/01/2014 DIABETES SCREEN EVERY 3 YRS- AGE 45 AND ABOVE 05/04/2019 05/04/2016, 06/11/2014, 01/01/2014, Additional history exists DTaP,Tdap,and Td Vaccines (2 - Td) 01/10/20252014 PNEUMOCOCCAL ADULT 65 YRS AND OVER Completed 2015, 06/08/2013 as of this encounter Implants Not on fileas of this encounter Visit Diagnoses Diagnosis Benign hypertension with CKD (chronic kidney disease) stage III - Primary Benign hypertensive kidney disease with chronic kidney disease stage I through stage IV, or unspecified Bronchiectasis without compl ication (HCC) Bronchiectasis without acute exacerbation Thoracic aortic aneurysm wit hout rupture (HCC) Thoracic aneurysm without mention of rupture History of rheumatoid arthri tis Personal history of arthritis Primary osteoarthritis of amrik th hands Screening for prostate cance r Special screening for malignant neoplasm of prostate in this encounter Insurance Payer Benefit Plan / Group Subscriber ID Type Phone Address [place] [id number] as of this encounter
--- OUTSIDE RECORDS SUMMARY | 2023-01-29 05:12 | External Medical Summary | Summary of Care ---
Author Name Unknown Organization [place] [address] Phone Care Team Providers Care Asphalt Surface Heater Operator Name Role Phone William Joseph MD Primary Care Provider + Reason for Visit * Reason Comments [facility] Encounter Details Date Type Department Care Team Description 04/20/2017 Refill General Internal Medicine [facility] [address] [place] [address] William Joseph MD [address] [place] [address] [phone] Pernicious anemia Allergies No Known Allergiesas of this encounter Medications Prescription Sig. Disp. Refills Start Date End Date Status amlodipine-benazepri l 5-20 mg per cap (LOTREL) 5-20 MG per capsuleIndications:H TN, goal below 140/90 Take 1 Cap by mouth daily. 30 Cap 4 01/29/2017 Active PredniSONE (DELTASONE) 5 MG TabletIndications:H/ O rheumatoid [...] 30 days. 1 mL 5 04/23/2017 Active vitamin b-12 (CYANOCOBALAMIN) 1000 MCG/ML injectionIndications :Pernicious anemia Inject 1,000 mcg into a large muscle every 30 days. 1 mL 5 01/29/2017 04/20/2017 Discontinued as of this encounter Active Problems Problem Noted Date Kidney disease, chronic, stage III (GFR 30-59 ml/min) 08/09/2014 Overview: Per CKD protocol #1 Bronchiectasis ([facility]) 12/08/2013 Thoracic aortic aneurysm ([facility]) 4 Pernicious anemia 08/24/2010 HTN, goal below 140/90 as of this encounter Resolved Problems Problem Noted Date Resolved Date History of rheumatoid arthritis 01/06/2016 07/27/2016 Encounter for long-term (current) use of medicat ions 07/27/2010 01/06/2016 Overview: ICD-10 update of inactive term ARTHRITIS,RHEUMATOID ([facility]) 05/27/200001/05 Kidney disease, chronic, stage III (GFR 30-59 ml /min) 03/24/2012 as of this encounter Immunizations Name Dates Previously Given Next Due Pneumococcal Conjugate Vacc, 13 Valent (Prevnar) 07/13/2015 Pneumococcal Polyvalent Vacc (Pneumovax) 06/08/2013,03/19/2013(Deferred: Patient Refused - not interested) Seasonal Influenza, Quadriva lent, No Preserve, IM 05/04/2016 Seasonal Influenza, Trivalen t, with Preserve, 3yr & Above, Split 06/12/2015,06/01/2014,06/08/2013,02/25(Deferred: Patient Refused - not interested) TDAP (age 10 and older)(Boostrix) 01/10/2015 Varicella Zoster Vaccine (Adult) 01/10/2015 as of this encounter Social History Tobacco Use Types Packs/Day Years Used Date Former Smoker Cigarettes 2 35 Quit: 06/25 Smokeless Tobacco: Never Used Alcohol Use Drinks/Week oz/Week Comments Yes 7 Mixed drink(s) containing 1.5 shots of alcohol 3.5 Sex Assigned at Date Recorded Not on file as of this encounter Plan of Treatment Upcoming Encounters Date Type Specialty Care Team Description 07/30/2017 Office Visit Internal Medicine William Joseph MD [address] [place] [address] [phone] Health Maintenance Due Date Last Done Comments COLONOSCOPY-EVERY 10 YRS AGE S 50-75 1993 ABDOMINAL AORTIC ANEURYSM (A AA) SCREENING 2008 *ADVANCE DIRECTIVE NOT ON FILE 01/23/2015 CKD GFR USE SMARTSET 85007 11/02/201605/04, 06/11/2014, 01/01/2014, Additional history exists CKD PHOS USE SMARTSET 05276 11/02/2016 05/04/2016 Influenza Vaccine (FLU shot) (#1) 2016 05/04/2016, 06/12/2015, 06/01/2014, Additional history exists FOBT ANNUALLY,AGES 18-100 03/22/2017 03/22/2016, CKD LDL USE SMARTSET 46583 ( STAGE 3) [place] [address] (STAGE 4) 05/04/2017 05/04/2016, 06/11/2014, 01/01/2014, Additional history exists CKD HGB USE SMARTSET 13177 07/06/201707/06, 05/04/2016, 01/01/2014, Additional history exists CKD URINE PROTEIN/CREATININE RATION OR URINE MICROALBUMIN YEARLY USE SMARTSET 23514 08/03/2017 08/03/2016, 01/01/2014 DIABETES SCREEN EVERY 3 YRS- AGE 45 AND ABOVE 05/04/2019 05/04/2016, 06/11/2014, 01/01/2014, Additional history exists TETANUS EVERY 10 YEARS-TDAP (BOOSTRIX OR ADACEL) SUGGESTED IF NOT RECEIVED IN THE PAST. 01/10/2025 01/10/2015, 03/24/2012 (Refused) PNEUMOCOCCAL ADULT 65 YRS AND OVER Completed 2015, 06/08/2013 as of this encounter Implants Not on fileas of this encounter Visit Diagnoses Diagnosis Pernicious anemia in this encounter Insurance Payer Benefit Plan / Group Subscriber ID Type Phone Address jellyfish TAMIKA GOOD [id number] 1 as of this encounter
--- OUTSIDE RECORDS SUMMARY | 2023-01-29 05:12 | External Medical Summary | Summary of Care ---
Author Name Unknown Organization [place] [address] Phone Care Team Providers Care Lining Inserter Name Role Phone William Chavez MD Primary Care Provider + Reason for Visit * Reason Comments [facility] Encounter Details Date Type Department Care Team Description 10/28/2017 Refill General Internal Medicine [facility] [address] [place] [address] William Chavez MD [address] [place] [address] [phone] Pernicious anemia Allergies No Known Allergiesas of [...] TWICE DAILY 10.6 g 4 03/25/2017 Active amlodipine-benazepri l 5-20 mg per cap (LOTREL) 5-20 MG per capsuleIndications:B enign hypertension with CKD (chronic kidney disease) stage III Take 1 Cap by mouth daily. 30 Cap 11 07/30/2017 Active vitamin b-12 (CYANOCOBALAMIN) 1000 MCG/ML injectionIndications :Pernicious anemia Inject 1,000 mcg into a large muscle every 30 days. 1 mL 5 10/28/2017 Active vitamin b-12 (CYANOCOBALAMIN) 1000 MCG/ML injectionIndications :Pernicious anemia Inject 1,000 mcg into a large muscle every 30 days. 1 mL 5 04/23/2017 10/28/2017 Discontinued as of this encounter Active Problems Problem Noted Date History of rheumatoid arthritis 09/05/19 18 Generalized [...] Not on file as of this encounter Miscellaneous Notes * Telephone Encounter - William Chavez MD - 10/28/2017 9:53 AM EDT Signed Prescriptions: Disp Refills vitamin b-12 (CYANOCOBALAMIN) 1000 MCG/ML *1 mL 5 Sig: Inject 1,000 mcg into a large muscle every 30 days. Authorizing Provider: WILLIAM CHAVEZ * Telephone Encounter - Sima Andrade LPN - 10/28/2017 9:49 AM EDT Formatting of this note may be different from the original. Pending Prescriptions: Disp Refills vitamin b-12 (CYANOCOBALAMIN) 1000 MCG/ML*1 mL 5 Sig: Inject 1,000 mcg into a large muscle every 30 days. Last Office Visit: 07/30/2017 Next Office Visit: 02/04/2018 Scheduled Provider(s): William Chavez MD Last date the medication was ordered: 04/23/17 Patient Active Problem List Diagnosis Code Pernicious anemia D51.0 Bronchiectasis (HCC) J47.9 Thoracic aortic aneurysm (HCC) I71.2 Benign hypertension with CKD (chronic kidney disease) stage III I12.9, N18.3 History of rheumatoid arthritis Z87.39 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 Bunion, left foot M21.612 Labs: CREATININE, RD URINE(mg/dL) Nikita Dt/Tm Resulted [...] A1C components found * Telephone Encounter - Sima Andrade LPN - 10/28/2017 9:48 AM EDT Message from [employer]: Original authorizing provider: MD Ignacio Reyes would like a refill of the following medications: vitamin b-12 (CYANOCOBALAMIN) 1000 MCG/ML injection [William Chavez MD] Preferred pharmacy: [id number] Comment: Please reply to this message by electronic messaging. in this encounter Plan of Treatment Upcoming Encounters Date Type Specialty Care Team Description 12/11/2017 Office Visit Rheumatology Carlos Alberto Matthews MD [address] [place], [place] [address] [phone] 02/04/2018 Office Visit Internal Medicine William Chavez MD [address] [facility] [place], [place] [address] [phone] Health Maintenance Due Date Last Done Comments ABDOMINAL AORTIC ANEURYSM (A AA) SCREENING 2008 CKD GFR USE SMARTSET 95288 11/02/201605/04, 06/11/2014, 01/01/2014, Additional history exists CKD LDL USE SMARTSET 18886 ( STAGE 3) [place] [address] (STAGE 4) 05/04/2017 05/04/2016, 06/11/2014, 01/01/2014, Additional history exists CKD PHOS USE SMARTSET 48332 05/04/2017 05/04/2016 *BASIC METABOLIC PANEL (BMP) FOR HTN YEARLY 05/07/2017 *COLORECTAL CANCER SCREENING (COLONOSCOPY 10 YEARS; SIGMOIDOSCOPY 5 YEARS; COLOGUARD 3 YEARS; FOBT 1 YEAR),AGES 50-75 06/30/2017 03/22/2016, 10/23/2012 CKD HGB USE SMARTSET 25353 07/06/201707/06, 05/04/2016, 01/01/2014, Additional history exists CKD URINE PROTEIN/CREATININE RATION OR URINE MICROALBUMIN YEARLY USE SMARTSET 02740 08/03/2017 08/03/2016, 01/01/2014 DIABETES SCREEN EVERY 3 YRS- AGE 45 AND ABOVE 05/04/2019 05/04/2016, 06/11/2014, 01/01/2014, Additional history exists DTaP,Tdap,and Td Vaccines (2 - Td) 01/10/20252014 PNEUMOCOCCAL ADULT 65 YRS AND OVER Completed 2015, 06/08/2013 Influenza Vaccine (FLU shot) Completed 02/2018, 05/04/2016, 06/12/2015, Additional history exists as of this encounter Implants Not on fileas of this encounter Visit Diagnoses Diagnosis Pernicious anemia in this encounter
--- OUTSIDE RECORDS SUMMARY | 2023-01-29 05:12 | External Medical Summary ---
Author Name Unknown Address [address] [id number] Phone Organization K01:[facility] [address] [facility] [address] Laboratory Report Ordering Provider Test Date Status KATHY RAE MD 05/04/2016 12:09:00 Final Obs # Observation Date Value Abnormality Reference Status Performing Location 0 Vitamin B12 05/04/2016 17:43 >2000 Above high normal 211-946 Final [facility] [address] [facility] [address]
--- OUTSIDE RECORDS SUMMARY | 2023-01-29 05:12 | External Medical Summary ---
Author Name Unknown Address [address] [place] [address] Phone Organization K0G:[facility] Faviola Marlow [address] [facility] [place] [address] Laboratory Report Ordering Provider Test Date Status KATHY RAE MD 05/04/2016 12:09:00 Final Obs # Observation Date Value Abnormality Reference Status Performing Location 0 BUN 05/04/2016 13:15 23 Above high normal 6-20 Final [facility] Faviola Marlow [address] [place] [address] 1 Creatinine 05/04/2016 13:15 1.3 Above high normal 0.6-1.2 Final
--- OUTSIDE RECORDS SUMMARY | 2023-01-29 05:12 | External Medical Summary | Summary of Care ---
Author Name Unknown Organization [place] [address] Phone Care Team Providers Care Media Coordinator Name Role Phone William Chavez MD Primary Care Provider + Reason for Visit * Reason Comments eRx-Medication Refill Encounter Details Date Type Department Care Team Description 01/21/2018 Refill General Internal Medicine [facility] [address] [place], [place] [id number] William Chavez MD [address] [place] [address] [phone] H/O rheumatoid arthritis Allergies No Known Allergiesas of this encounter Medications Prescription Sig. Disp. Refills Start Date End Date Status benzonatate (TESSALON PERLES) 100 MG CapsuleIndications:C ough [...] 30 days. 1 mL 5 10/28/2017 Active PredniSONE (DELTASONE) 5 MG TabletIndications:H/ O rheumatoid arthritis TAKE ONE TABLET BY MOUTH ONE TIME DAILY 30 Tab 1 01/21/2018 Active PredniSONE (DELTASONE) 5 MG TabletIndications:H/ O rheumatoid arthritis Take 1 Tab by mouth daily. 30 Tab 2 01/29/2017 01/21/2018 Discontinued as of this encounter Active Problems [...] Telephone Encounter - William Chavez MD - 01/21/2018 11:18 AM EDT Signed Prescriptions: Disp Refills PredniSONE (DELTASONE) 5 MG Tablet 30 Tab 1 Sig: TAKE ONE TABLET BY MOUTH ONE TIME DAILY Authorizing Provider: WILLIAM CHAVEZ * Telephone Encounter - Nicole Whitney LPN - 01/21/2018 11:06 AM EDT Pending Prescriptions: Disp Refills PredniSONE (DELTASONE) 5 MG Tablet [Pharm*30 Tab 1 Sig: TAKE ONE TABLET BY MOUTH ONE TIME DAILY * Telephone Encounter - Nicole Whitney LPN - 01/21/2018 11:06 AM EDT Pending Prescriptions: Disp Refills PredniSONE (DELTASONE) 5 MG Tablet [Pharm*30 Tab 1 Sig: TAKE ONE TABLET BY MOUTH ONE TIME DAILY Last Office Visit: 07/30/2017 Next Office Visit: 02/04/2018 Scheduled Provider(s): William Chavez MD lr 9-5-17 in this encounter Plan of Treatment Upcoming Encounters Date Type Specialty Care Team Description 02/04/2018 Office Visit Internal Medicine William Chavez MD [address] [facility] [place], [place] [address] [phone] 06/11/2018 Office Visit Rheumatology Carlos Alberto Matthews MD [address] [place] [address] [phone] Health Maintenance Due Date Last Done Comments ABDOMINAL AORTIC ANEURYSM (A AA) SCREENING 2008 Zoster Vaccines HMT (2 of 3) 03/07/2015 01/10/2015 CKD GFR USE SMARTSET 91486 11/02/201605/04, 06/11/2014, 01/01/2014, Additional history exists CKD LDL USE SMARTSET 91806 ( STAGE 3) [place] [address] (STAGE 4) 05/04/2017 05/04/2016, 06/11/2014, 01/01/2014, Additional history exists CKD PHOS USE SMARTSET 57503 05/04/2017 05/04/2016 *BASIC METABOLIC PANEL (BMP) FOR HTN YEARLY 05/07/2017 *COLORECTAL CANCER SCREENING (COLONOSCOPY 10 YEARS; SIGMOIDOSCOPY 5 YEARS; COLOGUARD 3 YEARS; FOBT 1 YEAR),AGES 50-75 06/30/2017 03/22/2016, 10/23/2012 CKD HGB USE SMARTSET 86204 07/06/201707/06, 05/04/2016, 01/01/2014, Additional history exists CKD URINE PROTEIN/CREATININE RATION OR URINE MICROALBUMIN YEARLY USE SMARTSET 74895 08/03/2017 08/03/2016, 01/01/2014 Influenza Vaccine (FLU shot) (#1) 2018 06/05/2017, 05/04/2016, 06/12/2015, Additional history exists DIABETES SCREEN EVERY 3 YRS- AGE 45 AND ABOVE 05/04/2019 05/04/2016, 06/11/2014, 01/01/2014, Additional history exists DTaP,Tdap,and Td Vaccines (2 - Td) 01/10/20252014 PNEUMOCOCCAL ADULT 65 YRS AND OVER Completed 2015, 06/08/2013 as of this encounter Implants Not on fileas of this encounter Visit Diagnoses Diagnosis H/O rheumatoid arthritis Personal history of arthritis in this encounter
--- OUTSIDE RECORDS SUMMARY | 2023-01-29 05:12 | External Medical Summary | Summary of Care ---
Author Name Unknown Organization [place] [address] Care Team Providers Care Grinder Carbon Plant Name Role Phone William Joseph MD Primary Care Provider + Reason for Visit * Reason Comments Appointment Encounter Details Date Type Department Care Team Description 07/04/2018 Telephone General Internal Medicine [facility] 200 [place] [address] William Joseph MD 200 [place] [address] Appointment Allergies No Known Allergiesdocumented as of this encounter (statuses as of 07/07/2018) Medications Medication Sig Dispensed Refills Start Date [...] mouth daily. 30 Tab 1 06/05/2018 Active documented as of this encounter (statuses as of 07/07/2018) Active Problems Problem Noted Date Rheumatoid arthritis involvi ng multiple sites with positive rheumatoid factor 06/11/2018 Primary osteoarthritis of right hip 11/24 History of rheumatoid arthritis 09/05/19 18 Generalized osteoarthritis 09/04/2017 Bunion, left foot 09/04/2017 Benign hypertension with CKD (chronic ki dney disease) stage III 07/30/2017 Bronchiectasis 12/08/2013 Thoracic aortic aneurysm 12/08/2013 Pernicious anemia 08/24/2010 documented as of this encounter (statuses as of 07/07/2018) Resolved Problems Problem Noted Date Resolved Date [...] as of this encounter (statuses as of 07/07/2018) Immunizations Name Dates Previously Given Next Due [...] Telephone Encounter - Edna Oneal OSA - 07/07/2018 1:17 PM EST Appt scheduled, pt aware. * Telephone Encounter - William Joseph MD - 07/04/2018 4:08 PM EST Patient due for physical, pls schedule next 1-2 months. Also, was he having increase cough (?mentioned with rheum at their last OV). If so, schedule acute with me sooner documented in this encounter Plan of Treatment Upcoming Encounters Date Type Specialty Care Team Description 08/20/2018 Office Visit Internal Medicine William Joseph MD [address] [place] [address] [phone] 10/08/2018 Office Visit Rheumatology Carlos Alberto Matthews MD [address] [place] [address] [phone] Edmund, Nurse [facility] [address] [place] [address] [phone] Health Maintenance Due Date Last Done Comments CKD GFR USE SMARTSET 29813 11/02/201605/04, 06/11/2014, 01/01/2014, Additional history exists FOBT ANNUALLY,AGES 18-90 03/22/2017 03/22/2016, 09/26 CKD PHOS USE SMARTSET 67848 05/04/2017 05/04/2016 *BASIC METABOLIC PANEL (BMP) FOR HTN YEARLY 05/07/2017 CKD HGB USE SMARTSET 56858 07/06/201707/06, 05/04/2016, 01/01/2014, Additional history exists DIABETES [...] filedocumented as of this encounter Advance Directives Patient has advance care planning documents on file. For more information, please contact: [place] [phone]
--- OUTSIDE RECORDS SUMMARY | 2023-01-29 05:12 | External Medical Summary | Summary of Care ---
Author Name Unknown Organization [place] [address] Phone Care Team Providers Care Sponsorship Manager Name Role Phone William Joseph MD Primary Care Provider + Reason for Visit * Reason Comments [facility] Encounter Details Date Type Department Care Team Description 05/15/2017 Refill General Internal Medicine [facility] [address] [place] [address] William Joseph MD [address] [place] [address] [phone] Pernicious anemia Allergies No Known Allergiesas of this encounter Medications Prescription Sig. Disp. Refills Start Date End Date Status amlodipine-benazepril 5-20 mg per cap (LOTREL) 5-20 MG per capsuleIndications:HTN, goal below 140/90 Take 1 Cap by mouth daily. 30 Cap 4 01/29/2017 Active PredniSONE (DELTASONE) 5 MG TabletIndications:H/O rheumatoid arthritis Take 1 Tab by mouth daily. 30 Tab 2 01/29/2017 Active benzonatate (TESSALON PERLES) 100 MG CapsuleIndications:Cough Take 1 Cap by mouth 2 times a day as needed for Cough. Do not cut, crush, or chew. 50 Cap 1 01/29/2017 Active FLOVENT HFA 44 MCG/ACT inhalerIndications:Bronc hiectasis (HCC) INHALE ONE PUFF BY MOUTH TWICE DAILY 10.6 g 4 03/25/2017 Active vitamin b-12 (CYANOCOBALAMIN) 1000 MCG/ML injectionIndications:Per nicious anemia Inject 1,000 mcg into a large muscle every 30 days. 1 mL 5 04/23/2017 Active as of this encounter Active Problems Problem Noted Date Kidney disease, chronic, stage III (GFR 30-59 ml/min) 08/09/2014 Overview: Per CKD protocol #1 Bronchiectasis ([facility]) 12/08/2013 Thoracic aortic aneurysm ([facility]) 4 Pernicious anemia 08/24/2010 HTN, goal below 140/90 as of this encounter Resolved Problems Problem Noted Date Resolved Date History of rheumatoid arthritis 01/06/2016 07/27/2016 Encounter for long-term (current) use of medicat ions 07/27/2010 01/06/2016 Overview: ICD-10 update of inactive term ARTHRITIS,RHEUMATOID (HCC) 05/27/200001/05 Kidney disease, chronic, stage III (GFR [...] encounter Miscellaneous Notes * Telephone Encounter - Sima Andrade LPN - 05/15/2017 1:11 PM EST Formatting of this note may be different from the original. Pending Prescriptions: Disp Refills vitamin b-12 (CYANOCOBALAMIN) 1000 MCG/ML*1 mL 5 Sig: Inject 1,000 mcg into a large muscle every 30 days. Last Office Visit: 01/29/2017 Next Office Visit: 07/30/2017 Scheduled Provider(s): William Joseph MD Last date the medication was ordered: Patient Active Problem List Diagnosis Code HTN, goal below 140/90 I10 Pernicious anemia D51.0 Bronchiectasis (HCC) J47.9 Thoracic aortic aneurysm (HCC) I71.2 Kidney disease, chronic, stage III (GFR 30-59 ml/min) N18.3 Labs: CREATININE, RD URINE(mg/dL) Nikita Dt/Tm Resulted [...] components found * Telephone Encounter - Sima AndradeWAYNE - 05/15/2017 1:10 PM EST Message from [facility]: Original authorizing provider: MD Ignacio Reyes would like a refill of the following medications: vitamin b-12 (CYANOCOBALAMIN) 1000 MCG/ML injection [William Joseph MD] Preferred pharmacy: [id number]- [place] Comment: Please reply to this message by electronic messaging. in this encounter Plan of Treatment Upcoming Encounters Date Type Specialty Care Team Description 07/30/2017 Office Visit Internal Medicine William Joseph MD [address] [facility], [place] [id number] Health Maintenance Due Date Last Done Comments COLONOSCOPY-EVERY 10 YRS AGE S 50-75 1993 ABDOMINAL AORTIC ANEURYSM (A AA) SCREENING 2008 *ADVANCE DIRECTIVE NOT ON FILE 01/23/2015 CKD GFR USE SMARTSET 79706 11/02/201605/04, 06/11/2014, 01/01/2014, Additional history exists CKD PHOS USE SMARTSET 96987 11/02/2016 05/04/2016 Influenza Vaccine (FLU shot) (#1) 2016 05/04/2016, 06/12/2015, 06/01/2014, Additional history exists FOBT ANNUALLY,AGES 18-100 03/22/2017 03/22/2016, CKD LDL USE SMARTSET 95093 ( STAGE 3) [place] [address] (STAGE 4) 05/04/2017 05/04/2016, 06/11/2014, 01/01/2014, Additional history exists *BASIC METABOLIC PANEL (BMP) FOR HTN YEARLY 05/07/2017 CKD HGB USE SMARTSET 62782 07/06/201707/06, 05/04/2016, 01/01/2014, Additional history exists CKD URINE PROTEIN/CREATININE RATION OR URINE MICROALBUMIN YEARLY USE SMARTSET 18842 08/03/2017 08/03/2016, 01/01/2014 DIABETES SCREEN EVERY 3 [...] / Group Subscriber ID Type Phone Address [employer] TAMIKA GOOD [id number] 1 as of this encounter
--- OUTSIDE RECORDS SUMMARY | 2023-01-29 05:12 | External Medical Summary | Summary of Care ---
Author Name Unknown Organization [facility] [place] [address] Phone Care Team Providers Care Fish Smoker Name Role Phone William Joseph MD Primary Care Provider + Reason for Visit * Reason Comments APPOINTMENT Podiatry Encounter Details Date Type Department Care Team Description 09/12/2017 Telephone Rheumatology [facility] [address] [facility] [facility] [place] [address] Carlos Alberto Matthews MD [address] [place] [address] APPOINTMENT (Podiatry) Allergies No Known Allergiesas of this encounter Medications Prescription Sig. Disp. Refills Start Date End Date Status PredniSONE (DELTASONE) 5 MG TabletIndications:H/O rheumatoid arthritis Take 1 Tab by mouth daily. 30 Tab 2 01/29/2017 Active benzonatate (TESSALON PERLES) 100 MG CapsuleIndications:Cough Take 1 Cap by mouth 2 times a day as needed for Cough. Do not cut, crush, or chew. 50 Cap 1 01/29/2017 Active FLOVENT HFA 44 MCG/ACT inhalerIndications:[facility] hiectasis (HCC) INHALE ONE PUFF BY MOUTH TWICE DAILY 10.6 g 4 03/25/2017 Active vitamin b-12 (CYANOCOBALAMIN) 1000 MCG/ML injectionIndications:Per nicious anemia Inject 1,000 mcg into a large muscle every 30 days. 1 mL 5 04/23/2017 Active amlodipine-benazepril 5-20 mg per cap (LOTREL) 5-20 MG per capsuleIndications:Benig n hypertension with CKD (chronic kidney disease) stage III Take 1 Cap by mouth daily. 30 Cap 11 07/30/2017 Active as of this encounter Active Problems [...] encounter Miscellaneous Notes * Telephone Encounter - Kera Alvarado OSA - 09/12/2017 2:10 PM EDT Tried calling pt's to schedule appt. No answer. Left a msg to please call back to schedule Podiatry appt. in this encounter Plan of Treatment Upcoming Encounters Date Type Specialty Care Team Description 12/11/2017 Office Visit Rheumatology Carlos Alberto Matthews MD [address] [place] [address] [phone] 02/04/2018 Office Visit Internal Medicine William Joseph MD [address] [facility] [place] [address] [phone] Health Maintenance Due Date Last Done Comments ABDOMINAL AORTIC ANEURYSM (A AA) SCREENING 2008 *ADVANCE DIRECTIVE NOT ON FILE 01/23/2015 CKD GFR USE SMARTSET 44660 11/02/201605/04, 06/11/2014, 01/01/2014, Additional history exists CKD LDL USE SMARTSET 70564 ( STAGE 3) [place] 85[address] (STAGE 4) 05/04/2017 05/04/2016, 06/11/2014, 01/01/2014, Additional history exists CKD PHOS USE SMARTSET 62886 05/04/2017 05/04/2016 *BASIC METABOLIC PANEL (BMP) FOR HTN YEARLY 05/07/2017 *COLORECTAL CANCER SCREENING (COLONOSCOPY 10 YEARS; SIGMOIDOSCOPY 5 YEARS; COLOGUARD 3 YEARS; FOBT 1 YEAR),AGES 50-75 06/30/2017 03/22/2016, 10/23/2012 CKD HGB USE SMARTSET 24789 07/06/201707/06, 05/04/2016, 01/01/2014, Additional history exists CKD URINE PROTEIN/CREATININE RATION OR URINE MICROALBUMIN YEARLY USE SMARTSET 31459 08/03/2017 08/03/2016, 01/01/2014 DIABETES SCREEN EVERY 3 YRS- AGE 45 AND ABOVE 05/04/2019 05/04/2016, 06/11/2014, 01/01/2014, Additional history exists DTaP,Tdap,and Td Vaccines (2 - Td) 01/10/20252014 PNEUMOCOCCAL ADULT 65 YRS AND OVER Completed 2015, 06/08/2013 Influenza Vaccine (FLU shot) Completed 02/2018, 05/04/2016, 06/12/2015, Additional history exists as of this encounter Implants Not on fileas of this encounter Insurance Payer Benefit Plan / Group Subscriber ID Type Phone Address AETNA AETNA [id number] as of this encounter
--- OUTSIDE RECORDS SUMMARY | 2023-01-29 05:12 | External Medical Summary | Summary of Care ---
Author Name Unknown Organization [place] [address] Phone Care Team Providers Care Slot Machine Repairer Name Role Phone William Joseph MD Primary Care Provider + Reason for Visit * Reason Comments Previsit Planning Encounter Details Date Type Department Care Team Description 06/19/2017 Telephone General Internal Medicine [facility] [address] [place], [place] [id number] William Jsoeph MD [address] [place] [address] [phone] Previsit Planning Allergies No Known Allergiesas of this encounter [...] 08/09/2014 Overview: Per CKD protocol #1 Bronchiectasis ([facility]) 12/08/2013 Thoracic aortic aneurysm ([facility]) 4 Pernicious anemia 08/24/2010 HTN, goal [...] encounter Miscellaneous Notes * Telephone Encounter - Meaghan Martinez LPN - 06/19/2017 9:27 AM EST Formatting of this note may be different from the original. Patient contacted for Care Gaps Comprehensive Care Outreach. Last Office Visit: 01/29/2017 Outreach action taken: Contacted: Left message Health Maintenance Due Topic Date Due COLONOSCOPY-EVERY 10 YRS AGES 50-75 1993 ABDOMINAL AORTIC ANEURYSM (AAA) SCREENING 2008 *ADVANCE DIRECTIVE NOT ON FILE 01/23/2015 CKD GFR USE SMARTSET 75706 11/02/2016 CKD PHOS USE SMARTSET 95288 11/02/2016 Influenza Vaccine (FLU shot) (1) 12/25/2016 FOBT ANNUALLY,AGES 18-100 03/22/2017 CKD LDL USE SMARTSET 98968 (STAGE 3) [place] 69286 (STAGE 4) 05/04/2017 *BASIC METABOLIC PANEL (BMP) FOR HTN YEARLY 05/07/2017 CKD HGB USE SMARTSET 47319 07/06/2017 in this encounter Plan of Treatment Upcoming Encounters Date Type Specialty Care Team Description 07/30/2017 Office Visit Internal Medicine William Joseph MD [address] [place] [address], [place] [id number] Health Maintenance Due Date Last Done Comments COLONOSCOPY-EVERY 10 YRS AGE S 50-75 1993 ABDOMINAL AORTIC ANEURYSM (A AA) SCREENING 2008 *ADVANCE DIRECTIVE NOT ON FILE 01/23/2015 CKD GFR USE SMARTSET 42735 11/02/201605/04, 06/11/2014, 01/01/2014, Additional history exists CKD PHOS USE SMARTSET 29227 11/02/2016 05/04/2016 Influenza Vaccine (FLU shot) (#1) 2016 05/04/2016, 06/12/2015, 06/01/2014, Additional history exists FOBT ANNUALLY,AGES 18-100 03/22/2017 03/22/2016, CKD LDL USE SMARTSET 91899 ( STAGE 3) [place] [address] (STAGE 4) 05/04/2017 05/04/2016, 06/11/2014, 01/01/2014, Additional history exists *BASIC METABOLIC PANEL (BMP) FOR HTN YEARLY 05/07/2017 CKD HGB USE SMARTSET 39912 07/06/201707/06, 05/04/2016, 01/01/2014, Additional history exists CKD URINE PROTEIN/CREATININE RATION OR URINE MICROALBUMIN YEARLY USE SMARTSET 39564 08/03/2017 08/03/2016, 01/01/2014 DIABETES SCREEN EVERY 3 [...] / Group Subscriber ID Type Phone Address Perkle TAMIKA GOOD [id number] as of this encounter
--- OUTSIDE RECORDS SUMMARY | 2023-01-29 05:12 | External Medical Summary | Summary of Care ---
Author Name Unknown Organization [place] [address] Care Team Providers Care Back Office Medical Assistant Name Role Phone William Joseph MD Primary Care Provider + Reason for Visit * Reason Comments Medication Administration Flu and/or Pne umo Inj Encounter Details Date Type Department Care Team Description 05/22/2018 Immunization [facility] [address] [place] [address] [place], Nurse [facility] [address] [place] [address] [phone] Need for prophylactic vaccination and inoculation against influenza* Allergies No Known Allergiesas of this encounter Medications Medication Sig Dispensed Refills Start Date End Date Status benzonatate (TESSALON PERLES) 100 MG CapsuleIndications:Coug h Take 1 Cap by mouth 2 times a day as needed for Cough. Do not cut, crush, or chew. 50 Cap 1 01/29/2017 Active amlodipine-benazepril 5-20 mg per cap (LOTREL) 5-20 MG per capsuleIndications:Abraham gn hypertension 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) Take 1 Cap by mouth daily. 30 Cap 11 07/30/2017 Active PredniSONE (DELTASONE) 5 MG TabletIndications:H/O rheumatoid arthritis TAKE ONE TABLET BY MOUTH ONE TIME DAILY 30 Tab 1 01/21/2018 Active fluticasone (FLOVENT HFA) 44 MCG/ACT inhalerIndications:Bron chiectasis (HCC) Inhale 1 Puff by mouth 2 times a day. 10.6 g 4 05/07/2018 Active vitamin b-12 (CYANOCOBALAMIN) 1000 MCG/ML injectionIndications:Pe rnicious anemia Inject 1,000 mcg into a large muscle every 30 days. 1 mL 5 05/07/2018 Active as of this encounter Active Problems [...] Start Travel End as of this encounter Patient Instructions * Patient Instructions* Arabella Armstrong LPN - 05/22/2018 4:18 PM EST ~~PATIENT INSTRUCTIONS FOR FLU SHOT~~ [...] OF EYES, FACE OR INSIDE OF NOSE. in this encounter Progress Notes * Arabella Armstrong LPN - 05/22/2018 4:16 PM EST PRE - ADMINISTRATION DOCUMENTATION Are you allergic to latex? No Are you experiencing any cold symptoms or fever? No Have you had Guillain-[place] Syndrome (an illness that causes paralysis)? No Have you had the flu shot in the past? YES Have you ever had a reaction to the flu shot? No Arabella Armstrong LPN, 05/22/2018 4:16 PM Immunization Administration Documentation Time Out Procedure Performed: Yes Patient Identified (Ask Name/Date of ): Yes Does the patient have a fever greater than 101 degrees today? No Patient allergic to latex? No VFC Stock: yes Injection(s) verified: Yes, Injection Name: flu Verified Side and Site: Yes Verified Shot(s) with Parent(s)/Patient: Yes in this encounter Plan of Treatment Upcoming Encounters Date Type Specialty Care Team Description 05/22/2018 Immunization [facility], Nurse [facility] [address] [place] [address] [phone] Need for prophylactic vaccination and inoculation against influenza* 06/11/2018 Office Visit Rheumatology Carlos Alberto Matthews MD [address] [place] [address] [phone] [place] [address] [facility] Rheumatology [place] [address] [place] [address] [phone] Health Maintenance Due Date Last Done Comments ABDOMINAL AORTIC ANEURYSM (A AA) SCREENING 2008 CKD GFR USE SMARTSET 00616 11/02/201605/04, 06/11/2014, 01/01/2014, Additional history exists CKD PHOS USE SMARTSET 11743 05/04/2017 05/04/2016 *BASIC METABOLIC PANEL (BMP) FOR HTN YEARLY 05/07/2017 *COLORECTAL CANCER SCREENING (COLONOSCOPY 10 YEARS; SIGMOIDOSCOPY 5 YEARS; COLOGUARD 3 YEARS; FOBT 1 YEAR),AGES 50-75 06/30/2017 03/22/2016, 10/23/2012 CKD HGB USE SMARTSET 39986 07/06/201707/06, 05/04/2016, 01/01/2014, Additional history exists CKD URINE PROTEIN/CREATININE RATION OR URINE MICROALBUMIN YEARLY USE SMARTSET 44885 08/03/2017 08/03/2016, 01/01/2014 Influenza Vaccine (FLU shot) (#1) 2017 06/05/2017, 05/04/2016, 06/12/2015, Additional history exists DIABETES SCREEN EVERY 3 YRS- AGE 45 AND ABOVE 05/04/2019 05/04/2016, 06/11/2014, 01/01/2014, Additional history exists DTaP,Tdap,and Td Vaccines (2 - Td) 01/10/20252014 PNEUMOCOCCAL ADULT 65 YRS AND OVER Completed 2015, 06/08/2013 as of this encounter Implants Not on fileas of this encounter Visit Diagnoses Diagnosis Need for prophylactic vaccination and inoculation against influenza- Primary in this encounter Advance Directives Patient has advance care planning documents on file. For more information, please contact: LAYA Hoffman [phone]
--- OUTSIDE RECORDS SUMMARY | 2023-01-29 05:12 | External Medical Summary ---
Author Name Unknown Address Unknown Organization [id number]:[facility] [address] [facility] [facility] [place] [id number] Laboratory Report Ordering Provider Test Date Status KATHY RAE MD 05/04/2016 12:09:00 Final Obs # Observation Date Value Abnormality Reference Status Performing Location 0 Fasting status - Reported 05/04/2016 12:13 12 Final Performed [facility] [address] [facility] [place] [id number] 1 Triglyceride 05/04/2016 17:06 78 <200 Final
--- OUTSIDE RECORDS SUMMARY | 2023-01-29 05:12 | External Medical Summary | Summary of Care ---
Author Name Unknown Organization [place] [address] Care Team Providers Care Mathematical Scientist Name Role Phone William Chavez MD Primary Care Provider + Reason for Visit * Reason Comments [facility] Renewal Encounter Details Date Type Department Care Team Description 06/03/2018 Refill General Internal Medicine [facility] [address] [place] [address] William Chavez MD [address] [place] [address] [phone] Cough Allergies No Known Allergiesas of this encounter Medications Medication Sig Dispensed Refills Start Date End Date Status amlodipine-benazepr il 5-20 mg per cap (LOTREL) 5-20 MG per capsuleIndications: 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) Take 1 Cap by mouth daily. 30 Cap 11 07/30/2017 Active PredniSONE (DELTASONE) 5 MG TabletIndications:H /O rheumatoid arthritis TAKE ONE TABLET BY MOUTH ONE TIME DAILY 30 Tab 1 01/21/2018 Active fluticasone (FLOVENT HFA) 44 MCG/ACT inhalerIndications: [...] or chew. 50 Cap 1 06/03/2018 Active benzonatate (TESSALON PERLES) 100 MG CapsuleIndications: Cough Take 1 Cap by mouth 2 times a day as needed for Cough. Do not cut, crush, or chew. 50 Cap 1 01/29/2017 06/03/2018 Discontinued as of this encounter Active Problems [...] Telephone Encounter - William Chavez MD - 06/03/2018 2:14 PM EST Signed Prescriptions: Disp Refills benzonatate (TESSALON PERLES) 100 MG Capsu*50 Cap 1 Sig: Take 1 Cap by mouth 2 times a day as needed for Cough. Do not cut, crush, or chew. Authorizing Provider: WILLIAM CHAVEZ * Telephone Encounter - Nava Guzman LPN - 06/03/2018 2:06 PM EST Pending Prescriptions: Disp Refills benzonatate (TESSALON PERLES) 100 MG Caps*50 Cap 1 Sig: Take 1 Cap by mouth 2 times a day as needed for Cough. Do not cut, crush, or chew. Last Office Visit: 07/30/2017 Next Office Visit: No Future Appointments Last date the medication was ordered: 01/29/17 Patient Active Problem List Diagnosis Code Pernicious anemia D51.0 Bronchiectasis (HCC) J47.9 Thoracic aortic aneurysm (HCC) I71.2 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) I12.9, N18.3 History of rheumatoid arthritis Z87.39 [...] Telephone Encounter - Nava Guzman LPN - 06/03/2018 2:06 PM EST Message from [facility]: ----- Message from Lucho Canales sent at 06/03/2018 1:22 PM EST ----- Ignacio Garcia would like a refill of the following medications: benzonatate (TESSALON PERLES) 100 MG Capsule [William Chavez MD] Preferred pharmacy: [id number] in this encounter Plan of Treatment Upcoming Encounters Date Type Specialty Care Team Description 06/11/2018 Office Visit Rheumatology Carlos Alberto Matthews MD [address] [address] [phone] [place], Nurse Arrival Rheumatology [place] [address] [place] [address] [phone] Health Maintenance Due Date Last Done Comments ABDOMINAL AORTIC ANEURYSM (A AA) SCREENING 2008 CKD GFR USE SMARTSET 26890 11/02/201605/04, 06/11/2014, 01/01/2014, Additional history exists CKD PHOS USE SMARTSET 61227 05/04/2017 05/04/2016 *BASIC METABOLIC PANEL (BMP) FOR HTN YEARLY 05/07/2017 *COLORECTAL CANCER SCREENING (COLONOSCOPY 10 YEARS; SIGMOIDOSCOPY 5 YEARS; COLOGUARD 3 YEARS; FOBT 1 YEAR),AGES 50-75 06/30/2017 03/22/2016, 10/23/2012 CKD HGB USE SMARTSET 58008 07/06/201707/06, 05/04/2016, 01/01/2014, Additional history exists CKD URINE PROTEIN/CREATININE RATION OR URINE MICROALBUMIN YEARLY USE SMARTSET 30416 08/03/2017 08/03/2016, 01/01/2014 DIABETES SCREEN EVERY 3 YRS- AGE 45 AND ABOVE 05/04/2019 05/04/2016, 06/11/2014, 01/01/2014, Additional history exists DTaP,Tdap,and Td Vaccines (2 - Td) 01/10/20252014 PNEUMOCOCCAL ADULT 65 YRS AND OVER Completed 2015, 06/08/2013 Influenza Vaccine (FLU shot) Completed , 06/05/2017, 05/04/2016, Additional history exists as of this encounter Implants Not on fileas of this encounter Visit Diagnoses Diagnosis Cough in this encounter Advance Directives Patient has advance care planning documents on file. For more information, please contact: LAYA Hoffman [phone]
--- OUTSIDE RECORDS SUMMARY | 2023-01-29 05:12 | External Medical Summary | Summary of Care ---
Author Name Unknown Organization [place] [address] Care Team Providers Care Coordinator Cardiopulmonary Services Name Role Phone William Chavez MD Primary Care Provider + Reason for Visit * Reason Comments [facility] Med Renewal Encounter Details Date Type Department Care Team Description 05/07/2018 Refill General Internal Medicine [facility] [address] [place] [address] William Chavez MD [address] [place] [address] [phone] Bronchiectasis (HCC); Pernicious anemia Allergies No Known Allergiesas of this encounter Medications Medication Sig Dispensed Refills Start Date End Date Status benzonatate (TESSALON PERLES) 100 MG CapsuleIndications: Cough Take 1 Cap by mouth 2 times a day as needed for Cough. Do not cut, crush, or chew. 50 Cap 1 01/29/2017 Active amlodipine-benazepr il 5-20 mg per cap [...] 30 days. 1 mL 5 05/07/2018 Active FLOVENT HFA 44 MCG/ACT inhalerIndications: Bronchiectasis (HCC) INHALE ONE PUFF BY MOUTH TWICE DAILY 10.6 g 4 03/25/2017 05/07/2018 Discontinued vitamin b-12 (CYANOCOBALAMIN) 1000 MCG/ML injectionIndication s:Pernicious anemia Inject 1,000 mcg into a large muscle every 30 days. 1 mL 5 10/28/2017 05/07/2018 Discontinued as of this encounter Active Problems [...] Telephone Encounter - William Chavez MD - 05/07/2018 10:34 AM EST Signed Prescriptions: Disp Refills fluticasone (FLOVENT HFA) 44 MCG/ACT inhal*10.6 g 4 Sig: Inhale 1 Puff by mouth 2 times a day. Authorizing Provider: WILLIAM CHAVEZ vitamin b-12 (CYANOCOBALAMIN) 1000 MCG/ML *1 mL 5 Sig: Inject 1,000 mcg into a large muscle every 30 days. Authorizing Provider: WILLIAM CHAVEZ * Telephone Encounter - Sima Andrade LPN - 05/07/2018 10:20 AM EST Pending Prescriptions: Disp Refills fluticasone (FLOVENT HFA) 44 MCG/ACT inha*10.6 g 4 Sig: Inhale 1 Puff by mouth 2 times a day. vitamin b-12 (CYANOCOBALAMIN) 1000 MCG/ML*1 mL 5 Sig: Inject 1,000 mcg into a large muscle every 30 days. Last Office Visit: 07/30/2017 Next Office Visit: No Future Appointments Last date the medication was ordered: 03/25/17, 10/28/17 Patient Active Problem List Diagnosis Code Pernicious [...] Telephone Encounter - Sima Andrade LPN - 05/07/2018 10:20 AM EST Message from [facility]: ----- Message from Provider, [facility] sent at 05/07/2018 10:15 AM EST ----- Ignacio Garcia would like a refill of the following medications: FLOVENT HFA 44 MCG/ACT inhaler [William Chavez MD] vitamin b-12 (CYANOCOBALAMIN) 1000 MCG/ML injection [William Chavez MD] Preferred pharmacy: [facility] [id number]- [place] in this encounter Plan of Treatment Upcoming Encounters Date Type Specialty Care Team Description 06/11/2018 Office Visit Rheumatology Carlos Alberto Matthews MD [address] [place] [address] [phone] Nurse Andra Shaffer Rheumatology [place] [address] [facility] [place] [address] [phone] Health Maintenance Due Date Last Done Comments ABDOMINAL AORTIC ANEURYSM (A AA) SCREENING 2008 CKD GFR USE SMARTSET 41457 11/02/201605/04, 06/11/2014, 01/01/2014, Additional history exists CKD PHOS USE SMARTSET 46981 05/04/2017 05/04/2016 *BASIC METABOLIC PANEL (BMP) FOR HTN YEARLY 05/07/2017 *COLORECTAL CANCER SCREENING (COLONOSCOPY 10 YEARS; SIGMOIDOSCOPY 5 YEARS; COLOGUARD 3 YEARS; FOBT 1 YEAR),AGES 50-75 06/30/2017 03/22/2016, 10/23/2012 CKD HGB USE SMARTSET 89168 07/06/201707/06, 05/04/2016, 01/01/2014, Additional history exists CKD URINE PROTEIN/CREATININE RATION OR URINE MICROALBUMIN YEARLY USE SMARTSET 19341 08/03/2017 08/03/2016, 01/01/2014 Influenza Vaccine (FLU shot) (#1) 2017 06/05/2017, 05/04/2016, 06/12/2015, Additional history exists DIABETES SCREEN EVERY 3 YRS- AGE 45 AND ABOVE 05/04/2019 05/04/2016, 06/11/2014, 01/01/2014, Additional history exists DTaP,Tdap,and Td Vaccines (2 - Td) 01/10/20252014 PNEUMOCOCCAL ADULT 65 YRS AND OVER Completed 2015, 06/08/2013 as of this encounter Implants Not on fileas of this encounter Visit Diagnoses Diagnosis Bronchiectasis (HCC) Bronchiectasis without acute exacerbation Pernicious anemia in this encounter Advance Directives Patient has advance care planning documents on file. For more information, please contact: LAYA Hoffman [phone]
--- OUTSIDE RECORDS SUMMARY | 2023-01-29 05:12 | External Medical Summary | Summary of Care ---
Author Name Unknown Organization [place] [address] Phone Care Team Providers Care Solution Architect Name Role Phone William Joseph MD Primary Care Provider + Reason for Referral * Evaluate & Treat - Unlimited Visits (Within 10 days (routine)) Status Reason Specialty Diagnoses / Procedures Referred By Contact Referred To Contact Pending Review Specialty Services Required Podiatry Diagnoses Bunion, left foot Carlos Alberto Matthews MD [facility] [place] [address] Reason for Visit * Reason Comments Rheum Follow Up Pt called for appt d ue to increased pain in his right wrist * Evaluate & Treat - Unlimited Visits (Within 10 days (routine)) Status Reason Specialty Diagnoses / Procedures Referred By Contact Referred To Contact Pending Review Specialty Services Required Rheumatology Diagnoses Primary osteoarthritis of both hands William Joseph MD [address] [facility] [place] [address] Encounter Details Date Type Department Care Team Description 09/04/2017 Office Visit Rheumatology [address] [place] [place] [address] Carlos Alberto Matthews MD [address] [place] [address] [address] [place], [place] [id number] History of rheumatoid arthritis*;Generalize d osteoarthritis;Bunion , left foot Allergies No Known Allergiesas of this encounter [...] Sign Reading Time Taken Blood Pressure 138/80 09/04/2017 2:54 PM EDT Pulse - - Temperature 36.3 C (97.3 F) 09/04/2017 2 :54 PM EDT Respiratory Rate - - Oxygen Saturation - - Inhaled Oxygen Concentration - - Weight 84.4 kg (186 lb) 09/04/2017 2:54 PM EDT Height 175.3 cm (5' 9") 09/04/2017 2:54 PM EDT Body Mass Index 27.47 09/04/2017 2:54 PM EDT in this encounter Progress Notes * Carlos Alberto Matthews MD - 09/04/2017 3:08 PM EDT Formatting of this note may be different from the original. Subjective: Patient seen today for further follow up evaluation of osteoarthritis, h/o RA. Since the last visithe has been doing relatively okay until the last 1 month. Has had increasing pain and swelling of the right wrist. He reports that the right wrist really started to bother him after learning a piece for the piano. It is more swollen over the ulnar wrist. He has been off MTX for at least 2-3 yrs now. Last seen 2 yrs ago. His knees and hips have done okay. He has noted some chronic changes to the fingers but no active disease. . He reports at times he does use of prednisone taper for would cause of flares arthritis and that helps. Also feels that he has worsening pain of his left bunion. He reports a little while ago he had fluid draining out of the soft tissue on the dorsal aspect of the left foot. He has to cut issue so that it relieves the pressure against his bunion. Has very little range of motion of that toe. He has been told he might need surgery in the past. Musculoskeletal ROS: . Abnormal: joint pain and joint swelling . Pain scale (0-10): 5 Other ROS: . Constitutional: normal . Head normal . Eyes: normal . Ears, nose, throat, mouth: normal . Cardiovascular: normal . Respiratory: normal . Gastrointestinal: normal . Genitourinary: normal All other review systems reviewed and negative Social History: Social History Substance Use Topics Smoking status: Former Smoker Packs/day: 2.00 Years: 35.00 Types: Cigarettes Quit date: 06/25/1990 Smokeless tobacco: Never Used Alcohol use 3.5 oz/week 7 Mixed drink(s) containing 1.5 shots of alcohol per week Comment: occassional Current Outpatient Prescriptions Medication Sig Dispense Refill [...] muscle every 30 days. 1 mL 5 Physical Exam: BP 138/80 | Temp (Src) 97.3 (Tympanic) | Ht 5' 9" (1.753m) | Wt 186 lbs (84.369kg) | BMI 27.47 kg/m | BSA 2.03 m General: alert, healthy, no distress, well nourished and well developed HENT: normocephalic, external ears normal, no mucosal erythema, no mucosal edema, moist mucosa, no oral ulcers Eye Exam: PERRL, EOMI, conjunctiva are pink and non-injected, sclera clear Neck: supple, no adenopathy Lymph: no palpable lymphadenopathy Heart: regular rate & rhythm and no gallops Lungs: clear to auscultation , no rales, wheezes or rhonchi Abdomen: abdomen soft, non-tender and normal bowel sounds Extremities: no clubbing, no cyanosis Musculoskeletal Exam: Mild tenderness and swelling to the right wrist No other sites of synovitis or tenderness Assessment: Z87.39 History of rheumatoid arthritis (primary encounter diagnosis) M15.9 Generalized osteoarthritis (M21.612) Bunion, left foot Ongoing right wrist pain and swelling. Likely a flare of his rheumatoid arthritis versus tendinitisgiven repetitive activities prior to this flare. Will try a short course of prednisone and follow. Also consider steroid injection to the wrist. At this point will wait on restarting DMARD therapy. For his left foot will refer to podiatry Plan: 1. Prednisone taper has done in the past 2. Contact with update in 1-2 weeks 3. Consider steroid injection 4. Hold on restarting methotrexate at this point 5. Podiatry referral placed 6. Return to clinic in 3-4 months Carlos Alberto Matthews MD Department of Rheumatology in this encounter Nursing Notes * Josi Romo LPN - 09/04/2017 2:55 PM EDT Formatting of this note may be different from the original. Chief Complaint Patient presents with Rheum Follow Up Pt called for appt due to increased pain in his right wrist in this encounter Plan of Treatment Upcoming Encounters Date Type Specialty Care Team Description 12/11/2017 Office Visit Rheumatology Carlos Alberto Matthews MD [address] [place] [address] [place] [address] [phone] 02/04/2018 Office Visit Internal Medicine DobersteinWilliam MD [address] [facility] [place] [address] [phone] Scheduled Referrals Name Priority Associated Diagnoses Order S chedule PODIATRY REFERRAL OP Within 10 days (routine) Bunion, left foot Ordered: 09/04/2017 Health Maintenance Due Date Last Done Comments ABDOMINAL AORTIC ANEURYSM (A AA) SCREENING 2008 *ADVANCE DIRECTIVE NOT ON FILE 01/23/2015 CKD GFR USE SMARTSET 14880 11/02/201605/04, 06/11/2014, 01/01/2014, Additional history exists CKD LDL [place] SMARTSET 67244 ( STAGE 3) [place] [address] (STAGE 4) 05/04/2017 05/04/2016, 06/11/2014, 01/01/2014, Additional history exists CKD PHOS USE SMARTSET 60197 05/04/2017 05/04/2016 *BASIC METABOLIC PANEL (BMP) FOR HTN YEARLY 05/07/2017 *COLORECTAL CANCER SCREENING (COLONOSCOPY 10 YEARS; SIGMOIDOSCOPY 5 YEARS; COLOGUARD 3 YEARS; FOBT 1 YEAR),AGES 50-75 06/30/2017 03/22/2016, 10/23/2012 CKD HGB USE SMARTSET 63407 07/06/201707/06, 05/04/2016, 01/01/2014, Additional history exists CKD URINE PROTEIN/CREATININE RATION OR URINE MICROALBUMIN YEARLY USE SMARTSET 88736 08/03/2017 08/03/2016, 01/01/2014 DIABETES SCREEN EVERY 3 YRS- AGE 45 AND ABOVE 05/04/2019 05/04/2016, 06/11/2014, 01/01/2014, Additional history exists DTaP,Tdap,and Td Vaccines (2 - Td) 01/10/20252014 PNEUMOCOCCAL ADULT 65 YRS AND OVER Completed 2015, 06/08/2013 Influenza Vaccine (FLU shot) Completed 02/2018, 05/04/2016, 06/12/2015, Additional history exists as of this encounter Implants Not on fileas of this encounter Visit Diagnoses Diagnosis History of rheumatoid arthri tis - Primary Personal history of arthritis Generalized osteoarthritis Generalized osteoarthrosis, unspecified site Bunion, left foot Bunion in this encounter Insurance Payer Benefit Plan / Group Subscriber ID Type Phone Address [facility] [id number] as of this encounter
--- OUTSIDE RECORDS SUMMARY | 2023-01-29 05:12 | External Medical Summary ---
Author Name Unknown Address [address] [id number] Phone Organization K01:[facility] [address] [id number] Laboratory Report Ordering Provider Test Date Status KATHY RAE MD 05/04/2016 12:09:00 Final Obs # Observation Date Value Abnormality Reference Status Performing Location 0 PSA 05/04/2016 17:07 1.99 <4.1 Final [facility] [address] [facility] [address]
--- OUTSIDE RECORDS SUMMARY | 2023-01-29 05:12 | External Medical Summary ---
Author Name Unknown Address [address] [place] [address] Phone Organization K0G:[facility] [address] [place] [address] Laboratory Report Ordering Provider Test Date Status KATHY RAE MD 05/04/2016 12:09:00 Final Obs # Observation Date Value Abnormality Reference Status Performing Location 0 WBC, Total 6 12:22 7.27 4.00-10.80 Final [facility] [address] [place] [address] 1 RBC 6 12:22 5.20 4.50-5.25 Final 2 Hemoglobin 6 12:22 16.9 Above high normal 14.0-16.8 Final 3 HCT 6 12:22 49.1 Above high normal 40.0-48.4 Final 4 MCV 6 12:22 94.4 82.0-99.5 Final 5 MCH 6 12:22 32.5 27.0-34.0 Final 6 MCHC 6 12:22 34.4 32.0-36.0 Final 7 RDW 6 12:22 13.7 11.5-15.5 Final 8 Platelets 6 12:22 217 140-400 Final 9 MPV 6 12:22 10.4 6.6-11.1 Final 10 NEUT 6 12:22 66.4 40-75 Final 11 Lymphs % 6 12:22 15.4 Below low normal 18-42 Final 12 Monos 6 12:22 9.2 1-11 Final 13 Eosinophils 6 12:22 8.4 Above high normal 0-6 Final 14 Basos 6 12:22 0.6 0-2 Final 15 ANEUT 6 12:22 4.83 1.8-7.7 Final 16 Lymphs, absolute 12/09/201 6 12:22 1.12 1.0-4.8 Final 17 Monos, Abs 6 12:22 0.67 0.0-1.1 Final 18 Eos, Abs 6 12:22 0.61 0.0-0.7 Final 19 Basos, Abs 6 12:22 0.04 0.0-0.2 Final
--- OUTSIDE RECORDS SUMMARY | 2023-01-29 05:12 | External Medical Summary | Summary of Care ---
Author Name Unknown Organization [place] [address] Care Team Providers Care Lift Truck Mechanic Name Role Phone William Joseph MD Primary Care Provider + Reason for Visit * Reason Comments Rheum Follow Up 6month recheck Encounter Details Date Type Department Care Team Description 06/11/2018 Office Visit Rheumatology [address] [place] [address] Harry Brooks MD [address] [facility] [place] [address] [phone] Nurse Andra Shaffer Rheumat[facility] [place] [address] [place] [address] [place] [address] [phone] Rheumatoid arthritis involving multiple sites with positive rheumatoid factor (HCC)*; Generalized osteoarthritis Allergies No Known Allergiesas of this encounter [...] mouth daily. 30 Tab 1 06/05/2018 Active as of this encounter Active Problems Problem Noted Date Rheumatoid arthritis [...] Start Travel End as of this encounter Last Filed Vital Signs Vital Sign Reading Time Taken Blood Pressure 148/80 06/11/2018 1:33 PM EST Pulse - - Temperature 36.3 C (97.3 F) 06/11/2018 1 :33 PM EST Respiratory Rate - - Oxygen Saturation - - Inhaled Oxygen Concentration - - Weight 82.6 kg (182 lb) 06/11/2018 1:33 PM EST Height - - Body Mass Index 26.88 06/11/2018 1:33 PM EST in this encounter Patient Instructions * Patient Instructions* Harry Brooks MD - 06/11/2018 1:40 PM EST HYDROXYCHLOROQUINE (PLAQUENIL) Hydroxychloroquine helps patients with Rheumatoid Arthritis, Lupus, and other inflammatory diseasesbecause it calms the immune system and decreases inflammation and may prevent joint damage. DOSING: Hydroxychloroquine is generally given to adults in doses of 200 mg or 400 mg per day. SIDE EFFECTS: This medication is generally well tolerated. Occasional side effects: Diarrhea sometimes occurs but generally decreases if you take this medication with food. Anemia, weakness, bleaching or thinning of hair, rash and discoloration of the skin are rare but possible side effects. Visual changes have been rare and generally reported years ago when the dose was higher. Visual change tends to be seen in elderly patients who have kidney disease who also took plaquenil for years. At the current recommended dose, development of visual problems while taking this medication is extremely unusual. We recommend that you get your eyes checked once a year while taking plaquenil. POINTS TO REMEMBER Although vision problems are rare, tell your doctor if you notice any change in your vision. : Although hydroxychloroquine use might be safe during , if you are or are considering having a child, discuss this with your doctor. Live vaccinations (including Flu Mist and the shingles vaccine) should be avoided while taking thismedication. Be sure to discuss with your doctor before receiving any vaccines. We generally suggestthat patients receive a yearly injectable flu (and H1N1) vaccine. Pneumonia vaccine is recommended twice - (5 years apart). Adapted from [employer] Patient Resources. Approved: December 2009 [facility] Dept of Rheumatology Best Practice Committee. in this encounter Progress Notes * Harry Brooks MD - 06/11/2018 2:07 PM EST Progress Notes Today's Visit Note 06/11/2018 Harry Brooks MD Assessment Diagnosis Comment Rheumatoid arthritis involving multiple sites with positive rheumatoid factor (HCC) (M05.79) Rheumatoid arthritis involving multiple sites with positive rheumatoid factor (HCC) (primary encounter diagnosis) (M15.9) Generalized osteoarthritis Comment Given his reported flare ups without active disease on exam I do wonder about getting back on oral DMARD such as Plaquenil. Given patient information to review as well as discussed risk benefits. He will think about it. For now will continue use as needed prednisone. Will contact PCP about repeat CT imaging of the chest. Plan 1. Will contact PCP about repeat CT images of the chest given his bronchiectasis and cough 2. As needed prednisone for now 3. Get labs that were ordered 4. Consider adding Plaquenil 5. Return to clinic in 4 months History "Mr. Garcia is a 72 year old man last seen in Rheumatology today (06-11-18). He has h/o 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), Bronchiectasis (HCC), Pernicious anemia, Bunion, left foot, Generalized osteoarthritis, History of rheumatoid arthritis, and Primary osteoarthritis of right hip, due for eval of Rheumatoid arthritis involving multiple sites with positive rheumatoid factor (HCC)." Temporary History He reports he has flare ups from time to time mainly in his hands that response to a single dose of20 mg of prednisone. He has not been on methotrexate for some time and prior to that only took it sporadically. He did not like the side effects of it. He has not had persistent disease activity but will have flares every couple months. He will take 20 mg of prednisone and within 1 day he is betterand does not need anything else for several weeks to months. He has never been on any other oral DMARD treatment. He is also dealing with bronchiectasis and cough. Has not had a repeat CT imaging in 4 years. Permanent History diagnosed with RA in 2001 but now burnt out, off DMARD therapy Condition Summary Date Description 12/11/2017 RHEUMATOLOGY [facility] with Dr. Brooks (History of rheumatoid arthritis) Review of Systems (ROS) ROS Symptoms General [...] a day. 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 + crepitus both 1st CMC joints. no active synovitis today HENT normocephalic, atraumatic, normal nasal and oropharyngeal mucosa Lymph Nodes no lymphadenopathy Heart regular rate and rhythm, no murmurs or rubs Lungs clear to auscultation, no wheezes, Abdomen soft, normal bowel sounds, no masses or organomegaly Outcome Measures Measure Today Previous MDHAQ 0.67 06/11/2018 0.33 12/11/2017 Pain 6 06/11/2018 1 12/11/2017 Fatigue 0 06/11/2018 1 12/11/2017 Stiffness 0 06/11/2018 0 12/11/2017 Patient Global 2 06/11/2018 0 12/11/2017 Rapid3 8.67 06/11/2018 1.33 12/11/2017 Tender Score 0 06/11/2018 0 12/11/2017 Swollen Score 0 06/11/2018 0 12/11/2017 Physician Global Score 2 06/11/2018 1 12/11/2017 Patient Global Score 2 06/11/2018 0 12/11/2017 CDAI 4 06/11/2018 1 12/11/2017 Treat To Target - Provider Goal Measure Current Target CDAI 4 10 Opportunity Patient De-Escalation At or below CDAI target (sustained low disease activity or remission) for at least 1 year Signature HARRY BROOKS in this encounter Nursing Notes * Fani Hickman LPN - 06/11/2018 1:32 PM EST Chief Complaint Patient presents with Rheum Follow Up 6month recheck in this encounter Plan of Treatment Upcoming Encounters Date Type Specialty Care Team Description 10/08/2018 Office Visit Rheumatology Harry Brooks MD [address] [facility] [address] [place] [address] [phone] [place], Nurse Arrival Rheumatology [place] [address] [facility] [address] [phone] Scheduled Tests Name Priority Associated Diagnoses Order S chedule SEDIMENTATION RATE Routine Generalized osteoarthritis Expected: 06/11/2018 (Approximate), Expires: 09/11/2018 Health Maintenance Due Date Last Done Comments ABDOMINAL AORTIC ANEURYSM (A AA) SCREENING 2008 CKD GFR USE SMARTSET 69232 11/02/201605/04, 06/11/2014, 01/01/2014, Additional history exists CKD PHOS USE SMARTSET 16464 05/04/2017 05/04/2016 *BASIC METABOLIC PANEL (BMP) FOR HTN YEARLY 05/07/2017 *COLORECTAL CANCER SCREENING (COLONOSCOPY 10 YEARS; SIGMOIDOSCOPY 5 YEARS; COLOGUARD 3 YEARS; FOBT 1 YEAR),AGES 50-75 06/30/2017 03/22/2016, 10/23/2012 CKD HGB USE SMARTSET 80147 07/06/201707/06, 05/04/2016, 01/01/2014, Additional history exists DIABETES SCREEN EVERY 3 YRS- AGE 45 AND ABOVE 05/04/2019 05/04/2016, 06/11/2014, 01/01/2014, Additional history exists DTaP,Tdap,and Td Vaccines (2 - Td) 01/10/20252014 PNEUMOCOCCAL ADULT 65 YRS AND OVER Completed 2015, 06/08/2013 Influenza Vaccine (FLU shot) Completed , 06/05/2017, 05/04/2016, Additional history exists as of this encounter Implants Not on fileas of this encounter Visit Diagnoses Diagnosis Rheumatoid arthritis involving multiple sites with positive rheumatoid factor (HCC)- Primary Generalized osteoarthritis Generalized osteoarthrosis, unspecified site in this encounter Advance Directives Patient has advance care planning documents on file. For more information, please contact: [place] [phone]
--- OUTSIDE RECORDS SUMMARY | 2023-01-29 05:12 | External Medical Summary | Summary of Care ---
Author Name Unknown Organization [place] [address] Phone Care Team Providers Care Speech Correction Assistant Name Role Phone William Joseph MD Primary Care Provider + Reason for Visit * Reason Comments Rheum Follow Up 3 month recheck Encounter Details Date Type Department Care Team Description 12/11/2017 Office Visit Rheumatology [facility] [address] [place] [address] Carlos Alberto Brooks MD [address] [facility] [place] [address] History of rheumatoid arthritis*;Primary osteoarthritis of right hip;Generalized osteoarthritis Allergies No Known Allergiesas of this [...] TWICE DAILY 10.6 g 4 03/25/2017 Active amlodipine-benazepril 5-20 mg per cap (LOTREL) 5-20 MG per capsuleIndications:Benig n hypertension with CKD (chronic kidney disease) stage III Take 1 Cap by mouth daily. 30 Cap 11 07/30/2017 Active vitamin b-12 (CYANOCOBALAMIN) 1000 MCG/ML injectionIndications:Per nicious anemia Inject 1,000 mcg into a large muscle every 30 days. 1 mL 5 10/28/2017 Active as of this encounter Active Problems [...] Sign Reading Time Taken Blood Pressure 138/80 12/11/2017 2:21 PM EDT Pulse - - Temperature 36.2 C (97.2 F) 12/11/2017 2 :21 PM EDT Respiratory Rate - - Oxygen Saturation - - Inhaled Oxygen Concentration - - Weight 86.2 kg (190 lb) 12/11/2017 2:21 PM EDT Height - - Body Mass Index 28.06 12/11/2017 2:21 PM EDT in this encounter Progress Notes * Carlos Alberto Brooks MD - 12/11/2017 3:15 PM EDT Formatting of this note may be different from the original. Progress Notes Today's Visit Note 12/11/2017 Carlos Alberto Brooks MD Assessment Diagnosis Comment Generalized osteoarthritis Primary osteoarthritis of right hip He has burned out rheumatoid arthritis. He is more dealing with osteoarthritis pain specifically ofthe right hip. Discussed. (Z87.39) History of rheumatoid arthritis (primary encounter diagnosis) (M16.11) Primary osteoarthritis of right hip (M15.9) Generalized osteoarthritis Plan 1. Continue off DMARD therapy 2. Continue Motrin as needed at bedtime 3. Contact if hip pain worsens or develops a flare of his rheumatoid arthritis 4. Return to clinic in 6 months History "Mr. Garcia is a 72 year old man last seen in Rheumatology today (12-11-17). He has h/o Benign hypertension with CKD (chronic kidney disease) stage III, Bronchiectasis (HCC), Pernicious anemia, Bunion, left foot, Generalized osteoarthritis, History of rheumatoid arthritis, and Primary osteoarthritisof right hip." Temporary History since last visit he has been doing okay. takes one motrin at bedtime most nights. he reports over the last few weeks has been able to ride his bike more - rides 3 times a week. he has gained some weight recently. his RA is burnt out at this point. He does have osteoarthritis of both hips. He reports that he takes Motrin usually 1 time at bedtime and helps. He has stable GFR around 57. Permanent History diagnosed with RA in 2001 but now burnt out, off DMARD therapy Condition Summary Date Description 09/04/2017 RHEUMATOLOGY [facility] with Dr. Brooks (History of rheumatoid arthritis) 07/30/2017 GEN INT [facility] with Dr. Joseph (Benign hypertension with CKD (chronickidney disease) stage III) Review of Systems (ROS) ROS Symptoms General Weight gain more than 5 lbs HEENT None MS/Neuro None Skin None Cardiopulmonary None Gastrointestinal None Genitourinary None Medications Rheumatology [...] into a large muscle every 30 days. 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 limited internalROM ofright hip with pain Eyes PERRLA, conjunctiva pink and non-injected, sclera clear HENT normocephalic, atraumatic, normal nasal and oropharyngeal mucosa Heart regular rate and rhythm, no murmurs or rubs Lungs clear to auscultation, some rhonchi noted at the bases Abdomen soft, normal bowel sounds, no masses or organomegaly Outcome Measures Measure Today Previous MDHAQ 0.33 12/11/2017 0.33 01/06/2016 Pain 1 12/11/2017 2 01/06/2016 Fatigue 1 12/11/2017 1 01/06/2016 Stiffness 0 12/11/2017 1 01/06/2016 Patient Global 0 12/11/2017 2 01/06/2016 Rapid3 1.33 12/11/2017 4.33 01/06/2016 Tender Score 0 12/11/2017 0 01/06/2016 Swollen Score 0 12/11/2017 0 01/06/2016 Physician Global Score 1 12/11/2017 1 01/06/2016 Patient Global Score 0 12/11/2017 2 01/06/2016 CDAI 1 12/11/2017 3 01/06/2016 Treat To Target - Provider Goal Measure Current Target CDAI 1 10 Opportunity Treat to Target Module Not Applicable Treat to Target Module Not Applicable Signature CARLOS ALBERTO BROOKS in this encounter Nursing Notes * Fani Hickman LPN - 12/11/2017 2:21 PM EDT Formatting of this note may be different from the original. Chief Complaint Patient presents with Rheum Follow Up 3 month recheck in this encounter Plan of Treatment Upcoming Encounters Date Type Specialty Care Team Description 02/04/2018 Office Visit Internal Medicine William Joseph MD [address] [place] [facility] [place] [address] [phone] 06/11/2018 Office Visit Rheumatology Carlos Alberto Brooks MD [address] [facility] [address] [phone] Health Maintenance Due Date Last Done Comments ABDOMINAL AORTIC ANEURYSM (A AA) SCREENING 2008 CKD GFR USE SMARTSET 14262 11/02/201605/04, 06/11/2014, 01/01/2014, Additional history exists CKD LDL USE SMARTSET 04239 ( STAGE 3) [place] [address] (STAGE 4) 05/04/2017 05/04/2016, 06/11/2014, 01/01/2014, Additional history exists CKD PHOS USE SMARTSET 21692 05/04/2017 05/04/2016 *BASIC METABOLIC PANEL (BMP) FOR HTN YEARLY 05/07/2017 *COLORECTAL CANCER SCREENING (COLONOSCOPY 10 YEARS; SIGMOIDOSCOPY 5 YEARS; COLOGUARD 3 YEARS; FOBT 1 YEAR),AGES 50-75 06/30/2017 03/22/2016, 10/23/2012 CKD HGB USE SMARTSET 62992 07/06/201707/06, 05/04/2016, 01/01/2014, Additional history exists CKD URINE PROTEIN/CREATININE RATION OR URINE MICROALBUMIN YEARLY USE SMARTSET 85962 08/03/2017 08/03/2016, 01/01/2014 Influenza Vaccine (FLU shot) [...] tis - Primary Personal history of arthritis Primary osteoarthritis of ri ght hip Primary localized osteoarthrosis, pelvic region and thigh Generalized osteoarthritis Generalized osteoarthrosis, unspecified site in this encounter
--- OUTSIDE RECORDS SUMMARY | 2023-01-29 05:12 | External Medical Summary ---
Author Name Unknown Address [address] [address] Phone Organization K0G:[facility] [address] [place] [address] Laboratory Report Ordering Provider Test Date Status KATHY RAE MD 07/06/2016 10:32:00 Final Obs # Observation Date Value Abnormality Reference Status Performing Location 0 WBC, Total 7 10:46 7.16 4.00-10.80 Final [facility] [address] [place] [address] 1 RBC 7 10:46 4.96 4.50-5.25 Final 2 Hemoglobin 7 10:46 16.1 14.0-16.8 Final 3 HCT 7 10:46 46.9 40.0-48.4 Final 4 MCV 7 10:46 94.6 82.0-99.5 Final 5 MCH 7 10:46 32.5 27.0-34.0 Final 6 MCHC 7 10:46 34.3 32.0-36.0 Final 7 RDW 7 10:46 12.5 11.5-15.5 Final 8 Platelets 7 10:46 254 140-400 Final 9 MPV 7 10:46 10.0 6.6-11.1 Final 10 Segs 7 10:46 64.0 40-75 Final 11 Lymphs % 7 10:46 17.5 Below low normal 18-42 Final 12 Monos 7 10:46 9.2 1-11 Final 13 Eosinophils 7 10:46 8.9 Above high normal 0-6 Final 14 Basos 7 10:46 0.4 0-2 Final 15 Absolute Segs 7 10:46 4.58 1.8-7.7 Final 16 Lymphs, absolute 7 10:46 1.25 1.0-4.8 Final 17 Monos, Abs 7 10:46 0.66 0.0-1.1 Final 18 Eos, Abs 7 10:46 0.64 0.0-0.7 Final 19 Basos, Abs 7 10:46 0.03 0.0-0.2 Final
--- OUTSIDE RECORDS SUMMARY | 2023-01-29 05:12 | External Medical Summary ---
Author Name Unknown Address [address] [place] [address] Phone Organization K01:[facility] [address] [facility] [address] Laboratory Report Ordering Provider Test Date Status KATHY RAE MD 05/04/2016 12:14:00 Final Obs # Observation Date Value Abnormality Reference Status Performing Location 0 Color of Urine by Auto 05/04/20 16:49 STRAW Abnormal YEL Final [facility] [address] [facility] [address] 1 Clarity, Urine 05/04/20 16 16:49 CLEAR CLEAR Final 2 Glucose [Mass/volume] in Urine by Automated test strip 05/04/20 16 16:49 NEGATIVE NEG Final 3 Bilirubin.total [Presence] in Urine by Automated test strip 05/04/20 16 16:49 NEGATIVE NEG Final 4 Ketones [Mass/volume] in Urine by Automated test strip 05/04/20 16 16:49 NEGATIVE NEG Final 5 Specific gravity, Urine 05/04/20 16 16:49 1.020 1.003-1.030 Final 6 Hemoglobin [Presence] in Urine by Automated test strip 05/04/20 16 16:49 NEGATIVE NEG Final 7 pH, Urine 05/04/20 16 16:49 6.0 5.0-7.5 Final 8 Protein [Mass/volume] in Urine by Automated test strip 05/04/20 16 16:49 TRACE Abnormal NEG Final 9 Urobilinogen [Mass/volume] in Urine by Automated test strip 05/04/20 16 16:49 NORMAL NORM Final 10 Nitrite [Presence] in Urine by Automated test strip 05/04/20 16 16:49 NEGATIVE NEG Final 11 Leukocyte esterase [Presence] in Urine by Automated test strip 05/04/20 16 16:49 NEGATIVE NEG Final 12 Bacteria [Presence] in Urine by Automated 05/04/20 16 16:49 NONE NONE Final 13 Leukocytes [#/area] in Urine sediment by Automated count 05/04/20 16 16:49 0-2 U02 Final 14 Erythrocytes [#/area] in Urine sediment by Automated count 05/04/20 16 16:49 0-2 U02 Final
--- OUTSIDE RECORDS SUMMARY | 2023-01-29 05:13 | External Medical Summary ---
Author Name KATHY GONZALES Organization K01:[place] [address] [address] Support Name Relationship Address Phone BUTCH CHAVEZ MD PROV Unknown Unava ilable Laboratory Report Ordering Provider Test Date Status BUTCH CHAVEZ MD 10/17/2012 10:36:00-0400 F inal Obs # Observation Date Value ABNL Reference Status Pe rforming Location 1 Vitamin B12 10/17/2012 19:01-0400 913 211-946 pg/mL Final
--- OUTSIDE RECORDS SUMMARY | 2023-01-29 05:13 | External Medical Summary ---
Author Name Unknown Organization K09:[facility] [address] [place] [address] Laboratory Report Ordering Provider Test Date Status BUTCH CHAVEZ MD 01/01/2014 11:28:00-0400 F inal Obs # Observation Date Value ABNL Reference Status Pe rforming Location 1 BUN 01/01/2014 13:04-0400 20 6-20 mg/dL Final 2 Creatinine 01/01/2014 13:04-0400 1.3 0.7-1.3 mg/dL Final GFR should be used to assess renal function. Plasma/Serum creatinine may not be able to properly reflect renal function in some cases. If patient is , multiply estimated GFR by 1.159.
--- OUTSIDE RECORDS SUMMARY | 2023-01-29 05:13 | External Medical Summary ---
Author Name Unknown Address [address] [place] [address] Phone Organization K09:[facility] [address] [place] [address] Laboratory Report Ordering Provider Test Date Status KATHY RAE MD 03/22/2016 08:00:00 Final Obs # Observation Date Value Abnormality Reference Status Performing Location 0 Occult Blood (EIA) 6 16:27 NEGATIVE NEG Final [facility] [address] [place] [address]
--- OUTSIDE RECORDS SUMMARY | 2023-01-29 05:13 | External Medical Summary ---
Author Name Unknown Organization K01:[facility], [address] [address] Laboratory Report Ordering Provider Test Date Status BUTCH CHAVEZ MD 01/01/2014 11:28:00-0400 F inal Obs # Observation Date Value ABNL Reference Status Pe rforming Location 1 Albumin, Urine 01/01/2014 17:51-0400 6.70 H 0-2 mg/dL Final 2 Creatinine, Random Urine 01/01/2014 17:51-0400 120 mg/dL Final 3 Microalbumin / Creatinine Ratio 01/01/2014 17:51-0400 56 H <31 mg/g creat Final Normal: 0- 29 mg/g creatinine High: 30-300 mg/g creatinine Very High and Nephrotic: >300 mg/g creatinine
--- OUTSIDE RECORDS SUMMARY | 2023-01-29 05:13 | External Medical Summary ---
Author Name HARRY BROOKS MD Organization K09:[facility], [address] , [facility] [address] Support Name Relationship Address Phone HARRY BROOKS MD PROV Unknown Unavail able Laboratory Report Ordering Provider Test Date Status HARRY BROOKS MD 04/25/2011 09:44-0500 Final Obs # Observation Date Value ABNL Reference Status Pe rforming Location 1 WBC 04/25/2011 10:05-0500 6.10 4.00-10.80 K/uL Final 2 RBC 04/25/2011 10:05-0500 5.05 4.50-5.25 M/uL Final 3 HGB 04/25/2011 10:05-0500 16.0 14.0-16.5 g/dL Final 4 HCT 04/25/2011 10:05-0500 47.2 H 40.0-47.0 % Final 5 MCV 04/25/2011 10:05-0500 93.5 82.0-99.5 fL Final 6 MCH 04/25/2011 10:05-0500 31.7 27.0-34.0 pg Final 7 MCHC 04/25/2011 10:05-0500 33.9 32.0-36.0 g/dL Final 8 RDW 04/25/2011 10:05-0500 13.6 11.5-15.5 % Final 9 PLATELET COUNT 04/25/2011 10:05-0500 223 140-400 K/uL Final 10 MPV 04/25/2011 10:05-0500 10.4 6.6-11.1 fL Final 11 diff type 04/25/2011 10:05-0500 AUTO Final 12 SEGS 04/25/2011 10:08-0500 65 40-75 % Final 13 LYMPHS 04/25/2011 10:08-0500 16 L 18-42 % Final 14 MONOS 04/25/2011 10:08-0500 11 1-11 % Final 15 EOS 04/25/2011 10:08-0500 7 H 0-6 % Final 16 Basos 04/25/2011 10:08-0500 1 0-2 % Final 17 ABS. SEGS 04/25/2011 10:08-0500 3.96 1.8-7.7 K/uL Final 18 ABS. LYMPHS 04/25/2011 10:08-0500 0.98 L 1.0-4.8 K/uL Final 19 ABS. MONOS 04/25/2011 10:08-0500 0.67 0.0-1.1 K/uL Final 20 ABS. EOS 04/25/2011 10:08-0500 0.43 0.0-0.7 K/uL Final 21 Basos, Abs 04/25/2011 10:08-0500 0.06 0.0-0.2 K/uL Final
--- OUTSIDE RECORDS SUMMARY | 2023-01-29 05:13 | External Medical Summary ---
Author Name Unknown Address [address] [id number] Phone Organization K01:[facility] [address] [facility] [address] Laboratory Report Ordering Provider Test Date Status KATHY RAE MD 05/04/2016 12:09:00 Final Obs # Observation Date Value Abnormality Reference Status Performing Location 0 Parathyrin.intact [Mass/volume] in Serum or Plasma 05/04/2016 17:06 54 15-65 Final [facility] [address] [facility] [address]
--- OUTSIDE RECORDS SUMMARY | 2023-01-29 05:13 | External Medical Summary ---
Author Name HARRY BROOKS MD Organization K09:[facility] e [address], [facility] [address] Support Name Relationship Address Phone HARRY BROOKS MD PROV Unknown Unavail able Laboratory Report Ordering Provider Test Date Status HARRY BROOKS MD 04/25/2011 09:44-0500 Final Obs # Observation Date Value ABNL Reference Status Pe rforming Location 1 Albumin 04/25/2011 11:08-0500 3.9 3.8-5.0 g/dL Final 2 AST (Aspartate aminotransferase) 04/25/2011 11:08-0500 22 10-50 U/L Final 3 Alk Phos 04/25/2011 11:08-0500 76 0-153 U/L Final 4 ALT (Alanine aminotransferase) 04/25/2011 11:08-0500 13 10-50 U/L Final 5 Bilirubin, Total 04/25/2011 11:08-0500 0.4 0.3-1.3 mg/dL Final 6 Bilirubin, Direct 04/25/2011 11:08-0500 <0.2 0.0-0.3 mg/dL Final 7 PROTEIN 04/25/2011 11:08-0500 7.4 6.0-8.3 g/dL Final
--- OUTSIDE RECORDS SUMMARY | 2023-01-29 05:13 | External Medical Summary ---
Author Name Unknown Organization K01:[facility], [address] [address] Laboratory Report Ordering Provider Test Date Status BUTCH CHAVEZ MD 06/11/2014 14:22:00-0500 F inal Obs # Observation Date Value ABNL Reference Status Pe rforming Location 1 PSA 06/11/2014 21:56-0500 2.28 <4.4 ng/mL Final
--- OUTSIDE RECORDS SUMMARY | 2023-01-29 05:13 | External Medical Summary ---
Author Name KATHY GONZALES Organization K09:[facility] [address] [place] [address] Support Name Relationship Address Phone BUTCH CHAVEZ MD PROV Unknown Unava ilable Laboratory Report Ordering Provider Test Date Status BUTCH CHAVEZ MD 10/23/2012 08:00:00-0400 F inal Obs # Observation Date Value ABNL Reference Status Pe rforming Location 1 Occult Blood (EIA) 10/24/2012 11:51-0400 NEGATIVE NEG Final
--- OUTSIDE RECORDS SUMMARY | 2023-01-29 05:13 | External Medical Summary ---
Author Name Unknown Organization K01:[facility], [facility] [address] [address] Laboratory Report Ordering Provider Test Date Status HARRY BROOKS MD 06/24/2013 12:14:00-0500 Elissa l Obs # Observation Date Value ABNL Reference Status Pe rforming Location 1 TSH 4 18:26-050 0 0.82 0.27-4.2 uIU/mL Final 2 FREE T4 REFLEXIVE 4 18:26-050 0 NOT APPLICABLE 0.7-1.7 Final
--- OUTSIDE RECORDS SUMMARY | 2023-01-29 05:13 | External Medical Summary ---
Author Name TODD GONZALES Organization K09:[facility], [address], [place] [address] Support Name Relationship Address Phone HARRY BROOKS MD PROV Unknown Unavaila ble Laboratory Report Ordering Provider Test Date Status HARRY BROOKS MD 10/17/2012 10:38:00-0400 Elissa l Obs # Observation Date Value ABNL Reference Status Pe rforming Location 1 Albumin 10/17/2012 11:54-0400 3.9 3.8-5.0 g/dL Final 2 AST (Aspartate aminotransferase) 10/17/2012 11:54-0400 20 10-50 U/L Final 3 Alk Phos 10/17/2012 11:54-0400 65 0-153 U/L Final 4 ALT (Alanine aminotransferase) 10/17/2012 11:54-0400 10 10-50 U/L Final 5 Bilirubin, Total 10/17/2012 11:54-0400 0.5 0.3-1.3 mg/dL Final 6 Bilirubin, Direct 10/17/2012 11:54-0400 <0.2 0.0-0.3 mg/dL Final 7 Protein 10/17/2012 11:54-0400 7.3 6.0-8.3 g/dL Final
--- OUTSIDE RECORDS SUMMARY | 2023-01-29 05:13 | External Medical Summary ---
Author Name Unknown Organization K09:[facility] e, [address], [facility] [address] Laboratory Report Ordering Provider Test Date Status HARRY BROOKS MD 06/24/2013 12:14:00-0500 Elissa l Obs # Observation Date Value ABNL Reference Status Pe rforming Location 1 WBC 06/24/2013 14:47-0500 11.56 H 4.00-10.80 K/uL Final 2 RBC 06/24/2013 14:47-0500 5.03 4.50-5.25 M/uL Final 3 HGB 06/24/2013 14:47-0500 15.5 14.0-16.5 g/dL Final 4 HCT 06/24/2013 14:47-0500 47.4 H 40.0-47.0 % Final 5 MCV 06/24/2013 14:47-0500 94.2 82.0-99.5 fL Final 6 MCH 06/24/2013 14:47-0500 30.8 27.0-34.0 pg Final 7 MCHC 06/24/2013 14:47-0500 32.7 32.0-36.0 g/dL Final 8 RDW 06/24/2013 14:47-0500 13.4 11.5-15.5 % Final 9 PLT 06/24/2013 14:47-0500 357 140-400 K/uL Final 10 MPV 06/24/2013 14:47-0500 10.3 6.6-11.1 fL Final
--- OUTSIDE RECORDS SUMMARY | 2023-01-29 05:13 | External Medical Summary ---
Author Name Unknown Organization K09:[facility] e, [address] [place] [address] , [facility] [address] Support Name Relationship Address Phone HARRY BROOKS MD PROV Unknown Unavail able Laboratory Report Ordering Provider Test Date Status HARRY BROOKS MD 01/25/2011 11:29-0400 Final Obs # Observation Date Value ABNL Reference Status Pe rforming Location 1 Creatinine 1 12:51-040 0 1.3 0.7-1.3 mg/dL Final 2 Creatinine 1 12:51-040 0 GFR should be used to assess renal function. Plasma/Serum creatinine may not be able to properly reflect renal function in some cases. Final 3 GFR / 1.73 sq M.predicted 1 12:51-040 0 55.1 L >60 mL/min Final
--- OUTSIDE RECORDS SUMMARY | 2023-01-29 05:13 | External Medical Summary ---
Author Name TODD GONZALES Organization K01:[facility], [facility] [address] [address] Support Name Relationship Address Phone HARRY BROOKS MD PROV Unknown Unavaila ble Laboratory Report Ordering Provider Test Date Status HARRY BROOKS MD 03/18/2012 16:21:00-0400 Elissa l Obs # Observation Date Value ABNL Reference Status Pe rforming Location 1 BUN 03/18/2012 22:24-0400 16 6-20 mg/dL Final 2 Creatinine 03/18/2012 22:24-0400 1.1 0.7-1.3 mg/dL Final GFR should be used to assess renal function. Plasma/Serum creatinine may not be able to properly reflect renal function in some cases.
--- OUTSIDE RECORDS SUMMARY | 2023-01-29 05:13 | External Medical Summary ---
Author Name KATHY GONZALES Organization K01:[place] [address] [address] Support Name Relationship Address Phone BUTCH CHAVEZ MD PROV Unknown Unava ilable Laboratory Report Ordering Provider Test Date Status BUTCH CHAVEZ MD 10/17/2012 10:36:00-0400 F inal Obs # Observation Date Value ABNL Reference Status Pe rforming Location 1 TSH 10/17/2012 19:10-0400 1.01 0.27-4.2 uIU/mL Final
--- OUTSIDE RECORDS SUMMARY | 2023-01-29 05:13 | External Medical Summary ---
Author Name TODD GONZALES Organization K01:[facility], [address] [address] Support Name Relationship Address Phone HARRY BROOKS MD PROV Unknown Unavaila ble Laboratory Report Ordering Provider Test Date Status HARRY BROOKS MD 03/18/2012 16:21:00-0400 Elissa l Obs # Observation Date Value ABNL Reference Status Pe rforming Location 1 WBC 03/18/2012 21:0400 8.32 4.00-10.80 K/uL Final 2 RBC 03/18/2012 21:0400 4.96 4.50-5.25 M/uL Final 3 HGB 03/18/2012 21:0400 15.7 14.0-16.5 g/dL Final 4 HCT 03/18/2012 21:0400 45.6 40.0-47.0 % Final 5 MCV 03/18/2012 21:0400 91.9 82.0-99.5 fL Final 6 MCH 03/18/2012 21:0400 31.7 27.0-34.0 pg Final 7 MCHC 03/18/2012 21:0400 34.4 32.0-36.0 g/dL Final 8 RDW 03/18/2012 21:0400 13.5 11.5-15.5 % Final 9 PLT 03/18/2012 21:290400 216 140-400 K/uL Final 10 MPV 03/18/2012 21:290400 11.4 H 6.6-11.1 fL Final
--- OUTSIDE RECORDS SUMMARY | 2023-01-29 05:13 | External Medical Summary ---
Author Name TODD GONZALES Organization K09:[facility], [address], [facility] [address] Support Name Relationship Address Phone HARRY BROOKS MD PROV Unknown Unavaila ble Laboratory Report Ordering Provider Test Date Status HARRY BROOKS MD 10/17/2012 10:38:00-0400 Elissa l Obs # Observation Date Value ABNL Reference Status Pe rforming Location 1 WBC 10/17/2012 11:0 5.92 4.00-10.80 K/uL Final 2 RBC 10/17/2012 11:0 5.20 4.50-5.25 M/uL Final 3 HGB 10/17/2012 11:0 16.1 14.0-16.5 g/dL Final 4 HCT 10/17/2012 11:0 47.4 H 40.0-47.0 % Final 5 MCV 10/17/2012 11:0 91.2 82.0-99.5 fL Final 6 MCH 10/17/2012 11:0 31.0 27.0-34.0 pg Final 7 MCHC 10/17/2012 11: 34.0 32.0-36.0 g/dL Final 8 RDW 10/17/2012 11:0 14.3 11.5-15.5 % Final 9 PLT 10/17/2012 11:0 288 140-400 K/uL Final 10 MPV 10/17/2012 11:0 10.0 6.6-11.1 fL Final 11 diff type 10/17/2012 11:0 AUTO Final 12 Segs 10/17/2012 11:140 65 40-75 % Final 13 Lymphocytes 10/17/2012 11:140 20 18-42 % Final 14 Monos 10/17/2012 11:140 8 1-11 % Final 15 Eosinophils 10/17/2012 11:140 6 0-6 % Final 16 Basos 10/17/2012 11: 1 0-2 % Final 17 Segmented Neutrophils, Abs 10/17/2012 11:0 3.85 1.8-7.7 K/uL Final 18 Lymphs, Abs 10/17/2012 11: 1.18 1.0-4.8 K/uL Final 19 Monos, Abs 10/17/2012 11:0 0.47 0.0-1.1 K/uL Final 20 Eos, Abs 10/17/2012 11: 0.36 0.0-0.7 K/uL Final 21 Basos, Abs 10/17/2012 11:040 0.06 0.0-0.2 K/uL Final
--- OUTSIDE RECORDS SUMMARY | 2023-01-29 05:13 | External Medical Summary ---
Author Name Unknown Organization K01:[facility], [address] [facility] [address] Support Name Relationship Address Phone HARRY BROOKS MD PROV Unknown Unavail able Laboratory Report Ordering Provider Test Date Status HARRY BROOKS MD 10/12/2010 13:37-0400 Final Obs # Observation Date Value ABNL Reference Status Pe rforming Location 1 WBC 10/12/2010 21:44-0400 7.18 4.00-10.80 K/uL Final 2 RBC 10/12/2010 21:44-0400 4.72 4.50-5.25 M/uL Final 3 HGB 10/12/2010 21:44-0400 15.1 14.0-16.5 g/dL Final 4 HCT 10/12/2010 21:44-0400 44.7 40.0-47.0 % Final 5 MCV 10/12/2010 21:44-0400 94.7 82.0-99.5 fL Final 6 MCH 10/12/2010 21:44-0400 32.0 27.0-34.0 pg Final 7 MCHC 10/12/2010 21:44-0400 33.8 32.0-36.0 g/dL Final 8 RDW 10/12/2010 21:44-0400 14.4 11.5-15.5 % Final 9 PLT 10/12/2010 21:44-0400 252 140-400 K/uL Final 10 MPV 10/12/2010 21:44-0400 11.4 H 6.6-11.1 fL Final 11 Segs 10/12/2010 21:44-0400 74 40-75 % Final 12 Lymph 10/12/2010 21:44-0400 13 L 18-42 % Final 13 [place] 10/12/2010 21:44-0400 7 1-11 % Final 14 Eosinophils 10/12/2010 21:44-0400 5 0-6 % Final 15 Baso 10/12/2010 21:44-0400 1 0-2 % Final 16 Neutrophils, Segmented 10/12/2010 21:44-0400 5.35 1.8-7.7 K/uL Final 17 Abs. Lymphs 10/12/2010 21:44-0400 0.92 L 1.0-4.8 K/uL Final 18 Abs. Monos 10/12/2010 21:44-0400 0.51 0.0-1.1 K/uL Final 19 ABS. EOS 10/12/2010 21:44-0400 0.34 0.0-0.7 K/uL Final 20 Abs. Baso 10/12/2010 21:44-0400 0.05 0.0-0.2 K/uL Final
--- OUTSIDE RECORDS SUMMARY | 2023-01-29 05:13 | External Medical Summary ---
Author Name Unknown Organization K09:[facility], [address], [place] [address] Support Name Relationship Address Phone HARRY BROOKS MD PROV Unknown Unavail able Laboratory Report Ordering Provider Test Date Status HARRY BROOKS MD 01/25/2011 11:29-0400 Final Obs # Observation Date Value ABNL Reference Status Pe rforming Location 1 WBC 01/25/2011 11:52-0400 8.13 4.00-10.80 K/uL Final 2 RBC 01/25/2011 11:52-0400 5.14 4.50-5.25 M/uL Final 3 HGB 01/25/2011 11:52-0400 16.1 14.0-16.5 g/dL Final 4 HCT 01/25/2011 11:52-0400 48.1 H 40.0-47.0 % Final 5 MCV 01/25/2011 11:52-0400 93.6 82.0-99.5 fL Final 6 MCH 01/25/2011 11:52-0400 31.3 27.0-34.0 pg Final 7 MCHC 01/25/2011 11:52-0400 33.5 32.0-36.0 g/dL Final 8 RDW 01/25/2011 11:52-0400 13.8 11.5-15.5 % Final 9 PLT 01/25/2011 11:52-0400 237 140-400 K/uL Final 10 MPV 01/25/2011 11:52-0400 10.5 6.6-11.1 fL Final 11 DIFF TYPE 01/25/2011 11:52-0400 AUTO Final 12 Segs 01/25/2011 11:53-0400 73 40-75 % Final 13 Lymph 01/25/2011 11:53-0400 12 L 18-42 % Final 14 [place] 01/25/2011 11:53-0400 10 1-11 % Final 15 Eosinophils 01/25/2011 11:53-0400 4 0-6 % Final 16 Baso 01/25/2011 11:53-0400 1 0-2 % Final 17 Neutrophils, Segmented 01/25/2011 11:53-0400 5.93 1.8-7.7 K/uL Final 18 Abs. Lymphs 01/25/2011 11:53-0400 0.98 L 1.0-4.8 K/uL Final 19 Abs. Monos 01/25/2011 11:53-0400 0.81 0.0-1.1 K/uL Final 20 ABS. EOS 01/25/2011 11:53-0400 0.33 0.0-0.7 K/uL Final 21 Abs. Baso 01/25/2011 11:53-0400 0.08 0.0-0.2 K/uL Final
--- OUTSIDE RECORDS SUMMARY | 2023-01-29 05:13 | External Medical Summary ---
Author Name Unknown Organization K09:[facility] [address] [place] [address] Laboratory Report Ordering Provider Test Date Status BUTCH CHAVEZ MD 01/01/2014 11:28:00-0400 F inal Obs # Observation Date Value ABNL Reference Status Pe rforming Location 1 hours fasting 01/01/2014 11:30-0400 12 hours Final 2 Triglyceride 01/01/2014 16:58-0400 84 <200 mg/dL Final TRIGLYCERIDE REFERENCE RANGES (mg/dL) <150 NORMAL 150-199 BORDERLINE HIGH 200-499 HIGH >499 VERY HIGH TOTAL CHOLESTEROL REFERENCE RANGES(mg/dL) <200 DESIRABLE 200-239 BORDERLINE HIGH >239 HIGH HDL CHOLESTEROL REFERENCE RANGES(mg/dL) <40 LOW(UNDESIRABLE) >59 HIGH(DESIRABLE) LDL CHOLESTEROL REFERENCE RANGES(mg/dL) <100 OPTIMAL GOAL FOR HIGH RISK PATIENTS 100-129 NEAR OR ABOVE NORMAL 130-159 BORDERLINE HIGH 160-189 HIGH >189 VERY HIGH
--- OUTSIDE RECORDS SUMMARY | 2023-01-29 05:13 | External Medical Summary ---
Author Name Unknown Organization K01:[facility], [address] [address] Laboratory Report Ordering Provider Test Date Status BUTCH CHAVEZ MD 06/11/2014 14:22:00-0500 F inal Obs # Observation Date Value ABNL Reference Status Pe rforming Location 1 LDL, (direct) 06/11/2014 21:49-0500 107 0-129 mg/dL Final LDL CHOLESTEROL REFERENCE RANGES(mg/dL) <100 OPTIMAL GOAL FOR HIGH RISK PATIENTS 100-129 NEAR OR ABOVE NORMAL 130-159 BORDERLINE HIGH 160-189 HIGH >189 VERY HIGH
--- OUTSIDE RECORDS SUMMARY | 2023-01-29 05:13 | External Medical Summary ---
Author Name Unknown Organization K09:[facility] [address] [place] [address] Laboratory Report Ordering Provider Test Date Status HARRY BROOKS MD 01/01/2014 11:31:00-0400 Elissa l Obs # Observation Date Value ABNL Reference Status Pe rforming Location 1 BUN 01/01/2014 13:27-0400 20 6-20 mg/dL Final 2 Creatinine 01/01/2014 13:27-0400 1.3 0.7-1.3 mg/dL Final GFR should be used to assess renal function. Plasma/Serum creatinine may not be able to properly reflect renal function in some cases. If patient is , multiply estimated GFR by 1.159.
--- OUTSIDE RECORDS SUMMARY | 2023-01-29 05:13 | External Medical Summary ---
Author Name Unknown Organization K09:[facility] [address] [facility] [address] Laboratory Report Ordering Provider Test Date Status HARRY BROOKS MD 06/24/2013 12:14:00-0500 Elissa l Obs # Observation Date Value ABNL Reference Status Pe rforming Location 1 BUN 06/24/2013 15:10-0500 17 6-20 mg/dL Final 2 Creatinine 06/24/2013 15:10-0500 1.0 0.7-1.3 mg/dL Final GFR should be used to assess renal function. Plasma/Serum creatinine may not be able to properly reflect renal function in some cases.
--- OUTSIDE RECORDS SUMMARY | 2023-01-29 05:13 | External Medical Summary ---
Author Name Unknown Organization K09:[facility], [address] , [place] [address] Support Name Relationship Address Phone HARRY BROOKS MD PROV Unknown Unavail able Laboratory Report Ordering Provider Test Date Status HARRY BROOKS MD 01/25/2011 11:29-0400 Final Obs # Observation Date Value ABNL Reference Status Pe rforming Location 1 Albumin, Serum 01/25/2011 12:51-0400 4.1 3.8-5.0 g/dL Final 2 AST (Aspartate aminotransferase) 01/25/2011 12:51-0400 22 10-50 U/L Final 3 Alk Phos 01/25/2011 12:51-0400 67 0-153 U/L Final 4 ALT (Alanine aminotransferase) 01/25/2011 12:51-0400 11 10-50 U/L Final 5 Bilirubin, Total 01/25/2011 12:51-0400 0.5 0.3-1.3 mg/dL Final 6 Bilirubin, Direct 01/25/2011 12:51-0400 <0.2 0.0-0.3 mg/dL Final 7 Protein 01/25/2011 12:51-0400 7.6 6.0-8.3 g/dL Final
--- OUTSIDE RECORDS SUMMARY | 2023-01-29 05:13 | External Medical Summary ---
Author Name KATHY GONZALES Organization K09:[facility] [address] [place] [address] Support Name Relationship Address Phone BUTCH CHAVEZ MD PROV Unknown Unava ilable Laboratory Report Ordering Provider Test Date Status BUTCH CHAVEZ MD 10/17/2012 10:36:00-0400 F inal Obs # Observation Date Value ABNL Reference Status Pe rforming Location 1 BUN 10/17/2012 11:53-0400 21 H 6-20 mg/dL Final 2 Creatinine 10/17/2012 11:53-0400 1.0 0.7-1.3 mg/dL Final GFR should be used to assess renal function. Plasma/Serum creatinine may not be able to properly reflect renal function in some cases.
--- OUTSIDE RECORDS SUMMARY | 2023-01-29 05:13 | External Medical Summary ---
Author Name Unknown Organization K09:[facility] [address] [place] [address] Laboratory Report Ordering Provider Test Date Status HARRY BROOKS MD 01/01/2014 11:31:000400 Elissa l Obs # Observation Date Value ABNL Reference Status Pe rforming Location 1 WBC 01/01/2014 11:47-0400 7.03 4.00-10.80 K/uL Final 2 RBC 01/01/2014 11:47-0400 4.98 4.50-5.25 M/uL Final 3 HGB 01/01/2014 11:47-0400 16.3 14.0-16.5 g/dL Final 4 HCT 01/01/2014 11:47-0400 48.9 H 40.0-47.0 % Final 5 MCV 01/01/2014 11:47-0400 98.2 82.0-99.5 fL Final 6 MCH 01/01/2014 11:47-0400 32.7 27.0-34.0 pg Final 7 MCHC 01/01/2014 11:47-0400 33.3 32.0-36.0 g/dL Final 8 RDW 01/01/2014 11:47-0400 14.2 11.5-15.5 % Final 9 PLT 01/01/2014 11:47-0400 248 140-400 K/uL Final 10 MPV 01/01/2014 11:47-0400 10.3 6.6-11.1 fL Final 11 Segs 01/01/2014 11:47-0400 65 40-75 % Final 12 Lymphocytes 01/01/2014 11:47-0400 17 L 18-42 % Final 13 Monos 01/01/2014 11:47-0400 11 1-11 % Final 14 Eosinophils 01/01/2014 11:47-0400 6 0-6 % Final 15 Basos 01/01/2014 11:47-0400 1 0-2 % Final 16 Segmented Neutrophils, Abs 01/01/2014 11:47-0400 4.62 1.8-7.7 K/uL Final 17 Lymphs, Abs 01/01/2014 11:47-0400 1.17 1.0-4.8 K/uL Final 18 Monos, Abs 01/01/2014 11:47-0400 0.75 0.0-1.1 K/uL Final 19 Eos, Abs 01/01/2014 11:47-0400 0.44 0.0-0.7 K/uL Final 20 Basos, Abs 01/01/2014 11:47-0400 0.05 0.0-0.2 K/uL Final
--- OUTSIDE RECORDS SUMMARY | 2023-01-29 05:13 | External Medical Summary ---
Author Name Unknown Organization K09:[facility], [address], [place] [address] Laboratory Report Ordering Provider Test Date Status BUTCH CHAVEZ MD 06/11/2014 14:22:00-0500 F inal Obs # Observation Date Value ABNL Reference Status Pe rforming Location 1 Albumin 06/11/2014 16:12-0500 3.9 3.8-5.0 g/dL Final 2 AST (Aspartate aminotransferase) 06/11/2014 16:12-0500 21 10-50 U/L Final 3 Alk Phos 06/11/2014 16:12-0500 69 0-153 U/L Final 4 ALT (Alanine aminotransferase) 06/11/2014 16:12-0500 13 10-50 U/L Final 5 Bilirubin, Total 06/11/2014 16:12-0500 0.4 0.3-1.3 mg/dL Final 6 Bilirubin, Direct 06/11/2014 16:12-0500 <0.2 0.0-0.3 mg/dL Final 7 Protein 06/11/2014 16:12-0500 7.8 6.0-8.3 g/dL Final
--- OUTSIDE RECORDS SUMMARY | 2023-01-29 05:13 | External Medical Summary ---
Author Name Unknown Organization K01:[facility], [address] [address] Laboratory Report Ordering Provider Test Date Status BUTCH CHAVEZ MD 01/01/2014 11:28:00-0400 F inal Obs # Observation Date Value ABNL Reference Status Pe rforming Location 1 Vitamin B12 01/01/2014 18:27-0400 1645 H 211-946 pg/mL Final
--- OUTSIDE RECORDS SUMMARY | 2023-01-29 05:13 | External Medical Summary ---
Author Name HARRY BROOKS MD Organization K09:[facility] [address], [facility] [address] Support Name Relationship Address Phone HARRY BROOKS MD PROV Unknown Unavail able Laboratory Report Ordering Provider Test Date Status HARRY BROOKS MD 04/25/2011 09:44-0500 Final Obs # Observation Date Value ABNL Reference Status Pe rforming Location 1 Creatinine 1 11:08-050 0 1.2 0.7-1.3 mg/dL Final 2 Creatinine 1 11:08-050 0 GFR should be used to assess renal function. Plasma/Serum creatinine may not be able to properly reflect renal function in some cases. Final 3 GFR ESTIMATED 1 11:08-050 0 >60.0 >60 mL/min Final
--- OUTSIDE RECORDS SUMMARY | 2023-01-29 05:13 | External Medical Summary ---
Author Name KATHY GONZALES Organization K09:[facility] [place] [facility], [address], [place] [address] Support Name Relationship Address Phone BUTCH CHAVEZ MD PROV Unknown Unava ilable Laboratory Report Ordering Provider Test Date Status BUTCH CHAVEZ MD 10/17/2012 10:36:00-0400 F inal Obs # Observation Date Value ABNL Reference Status Pe rforming Location 1 hours fasting 10/17/2012 10:38-0400 12 hours Final 2 Triglyceride 10/17/2012 18:03-0400 96 <200 mg/dL Final TRIGLYCERIDE REFERENCE RANGES (mg/dL) [...]
--- OUTSIDE RECORDS SUMMARY | 2023-01-29 05:13 | External Medical Summary ---
Author Name Unknown Organization K09:[facility], [address], [place] [address] Laboratory Report Ordering Provider Test Date Status BUTCH CHAVEZ MD 06/11/2014 14:22:00-0500 F inal Obs # Observation Date Value ABNL Reference Status Pe rforming Location 1 BUN 06/11/2014 16:12-0500 19 6-20 mg/dL Final 2 Creatinine 06/11/2014 16:12-0500 1.2 0.7-1.3 mg/dL Final GFR should be used to assess renal function. Plasma/Serum creatinine may not be able to properly reflect renal function in some cases. If patient is , multiply estimated GFR by 1.159.
--- OUTSIDE RECORDS SUMMARY | 2023-01-29 05:14 | External Medical Summary ---
Author Name Unknown Organization K09:[facility], [address], [place] [address] Support Name Relationship Address Phone HARRY BROOKS MD PROV Unknown Unavail able Laboratory Report Ordering Provider Test Date Status HARRY BROOKS MD 08/24/2010 14:20-0400 Final Obs # Observation Date Value ABNL Reference Status Pe rforming Location 1 BUN 08/24/2010 15:36-0400 20 6-20 mg/dL Final 2 Creatinine 08/24/2010 15:36-0400 1.3 0.7-1.5 mg/dL Final 3 Sodium 08/24/2010 15:36-0400 139 135-146 mmol/L Final 4 Potassium 08/24/2010 15:36-0400 4.2 3.5-5.1 mmol/L Final 5 Cl 08/24/2010 15:36-0400 103 98-111 mmol/L Final 6 CO2 08/24/2010 15:36-0400 28 22-32 mmol/L Final 7 Glucose 08/24/2010 15:36-0400 89 70-120 mg/dL Final 8 Albumin, Serum 08/24/2010 15:36-0400 3.9 3.8-5.0 g/dL Final 9 AST (Aspartate aminotransferase) 08/24/2010 15:36-0400 21 10-50 U/L Final 10 Alk Phos 08/24/2010 15:36-0400 69 25-125 U/L Final 11 Bilirubin, Total 08/24/2010 15:36-0400 0.4 0.3-1.3 mg/dL Final 12 Calcium 08/24/2010 15:36-0400 9.5 8.3-10.5 mg/dL Final 13 Protein 08/24/2010 15:36-0400 7.5 6.0-8.3 g/dL Final 14 ALT (Alanine aminotransferase) 08/24/2010 15:36-0400 16 10-50 U/L Final 15 Anion gap 08/24/2010 15:36-0400 8 7-15 mmol/L Final 16 GFR / 1.73 sq M.predicted 08/24/2010 15:36-0400 55.1 L >60 mL/min Final
--- OUTSIDE RECORDS SUMMARY | 2023-01-29 05:14 | External Medical Summary ---
Author Name Unknown Organization K09:[facility], [address], [place] [address] Support Name Relationship Address Phone HARRY BROOKS MD PROV Unknown Unavail able Laboratory Report Ordering Provider Test Date Status HARRY BROOKS MD 10/12/2010 13:37-0400 Final Obs # Observation Date Value ABNL Reference Status Pe rforming Location 1 BUN 10/12/2010 15:33-0400 18 6-20 mg/dL Final 2 Creatinine 10/12/2010 15:33-0400 1.3 0.7-1.5 mg/dL Final 3 Sodium 10/12/2010 15:33-0400 141 135-146 mmol/L Final 4 Potassium 10/12/2010 15:33-0400 3.8 3.5-5.1 mmol/L Final 5 Cl 10/12/2010 15:33-0400 104 98-111 mmol/L Final 6 CO2 10/12/2010 15:33-0400 27 22-32 mmol/L Final 7 Glucose 10/12/2010 15:33-0400 85 70-120 mg/dL Final 8 Albumin, Serum 10/12/2010 15:33-0400 4.0 3.8-5.0 g/dL Final 9 AST (Aspartate aminotransferase) 10/12/2010 15:33-0400 23 10-50 U/L Final 10 Alk Phos 10/12/2010 15:33-0400 74 25-125 U/L Final 11 Bilirubin, Total 10/12/2010 15:33-0400 0.5 0.3-1.3 mg/dL Final 12 Calcium 10/12/2010 15:33-0400 9.1 8.3-10.5 mg/dL Final 13 Protein 10/12/2010 15:33-0400 7.3 6.0-8.3 g/dL Final 14 ALT (Alanine aminotransferase) 10/12/2010 15:33-0400 18 10-50 U/L Final 15 Anion gap 10/12/2010 15:33-0400 10 7-15 mmol/L Final 16 GFR / 1.73 sq M.predicted 10/12/2010 15:33-0400 55.1 L >60 mL/min Final
--- OUTSIDE RECORDS SUMMARY | 2023-01-29 05:14 | External Medical Summary ---
Author Name Unknown Organization K09:[address] , [place] [address] Support Name Relationship Address Phone HARRY BROOKS MD PROV Unknown Unavail able Laboratory Report Ordering Provider Test Date Status HARRY BROOKS MD 08/24/2010 14:20-0400 Final Obs # Observation Date Value ABNL Reference Status Pe rforming Location 1 ESR 08/24/2010 15:49-0400 30 H 0-15 mm/hour Final
--- OUTSIDE RECORDS SUMMARY | 2023-01-29 05:14 | External Medical Summary ---
Author Name Unknown Organization K01:[facility], [address] [facility] [address] Support Name Relationship Address Phone HARRY BROOKS MD PROV Unknown Unavail able Laboratory Report Ordering Provider Test Date Status HARRY BROOKS MD 08/24/2010 14:20-0400 Final Obs # Observation Date Value ABNL Reference Status Pe rforming Location 1 WBC 08/24/2010 20:44-0400 6.90 4.00-10.80 K/uL Final 2 RBC 08/24/2010 20:44-0400 4.83 4.50-5.25 M/uL Final 3 HGB 08/24/2010 20:44-0400 15.2 14.0-16.5 g/dL Final 4 HCT 08/24/2010 20:44-0400 45.0 40.0-47.0 % Final 5 MCV 08/24/2010 20:44-0400 93.2 82.0-99.5 fL Final 6 MCH 08/24/2010 20:44-0400 31.5 27.0-34.0 pg Final 7 MCHC 08/24/2010 20:44-0400 33.8 32.0-36.0 g/dL Final 8 RDW 08/24/2010 20:44-0400 13.4 11.5-15.5 % Final 9 PLT 08/24/2010 20:44-0400 283 140-400 K/uL Final 10 MPV 08/24/2010 20:44-0400 10.8 6.6-11.1 fL Final 11 Segs 08/24/2010 20:44-0400 70 40-75 % Final 12 Lymph 08/24/2010 20:44-0400 16 L 18-42 % Final 13 [place] 08/24/2010 20:44-0400 8 1-11 % Final 14 Eosinophils 08/24/2010 20:44-0400 5 0-6 % Final 15 Baso 08/24/2010 20:44-0400 1 0-2 % Final 16 Neutrophils, Segmented 08/24/2010 20:44-0400 4.85 1.8-7.7 K/uL Final 17 Abs. Lymphs 08/24/2010 20:44-0400 1.07 1.0-4.8 K/uL Final 18 Abs. Monos 08/24/2010 20:44-0400 0.57 0.0-1.1 K/uL Final 19 ABS. EOS 08/24/2010 20:44-0400 0.34 0.0-0.7 K/uL Final 20 Abs. Baso 08/24/2010 20:44-0400 0.05 0.0-0.2 K/uL Final
[2023-01-29 06:36] LABS: Hematocrit (blood only) 39.5 % (42.0-52.0); Hemoglobin 12.6 g/dl (14.0-18.0); Mean Corpuscular Hemoglobin 29.2 pg (25.0-34.0); Mean Corpuscular Hgb Conc 31.9 g/dL (32.0-36.0); Mean Corpuscular Volume 91.4 fL (80.0-100.0); Platelet Count 377 K/uL (130-400); RDW Coefficient of Variation 13.8 % (11.5-14.5); RDW Standard Deviation 46.2 fL (36.4-46.3); Red Blood Count 4.32 M/uL (4.70-6.10); White Blood Count 10.95 K/ul (4.8-10.8)
[2023-01-29 06:51] LABS: BUN Creatinine Ratio 26.6 (10-20); Calcium 8.4 mg/dl (8.6-10.3); Creatinine Clr Calc Pharmacy 57.5 ml/min; Est GFR (Non-African American) 76.8 ml/min; Magnesium 1.8 mg/dl (1.7-2.4); Phosphorus 2.4 mg/dl (2.5-4.9); Potassium 3.7 mmol/L (3.5-5.1)
[2023-01-29] MEDS ORDERED: POT PHOSPHATE MONOBASIC W/ SOD TAB PO ONE ×2 (07:40)
[2023-01-29] MEDS: levETIRAcetam 500 MG in 0.9 % SODIUM CHLORIDE 100 ML IV SCH (07:58)
[2023-01-29] MEDS: ASPIRIN 81 MG ECTAB PO SCH (07:59)
[2023-01-29] MEDS: HEPARIN SOD 5,000 UNIT/0.5 ML VIAL SQ SCH (07:59)
[2023-01-29] MEDS: dexAMETHasone 1 MG TAB PO SCH (07:59)
[2023-01-29] MEDS: cefTRIAXone SODIUM 2,000 MG in DEXTROSE 5% 50 ML IV SCH ×2 (08:03→20:19)
--- NOTE | 2023-01-29 10:48 | Hospitalist Progress Note ---
Date of Service January 29, 2023 Assessment & Plan (1) Mixed aphasia: (2) HTN (hypertension): (3) Altered mental status: (4) Rheumatoid arthritis: (5) COPD (chronic obstructive pulmonary disease): (6) Fever of unknown origin: Plan Mixed Aphasia: Altered mental status: 77-year-old male with history of rheumatoid arthritis (on Humira Q 8 weeks), spinal stenosis, HTN, pernicious anemia, COPD emphysema that presented to the ED after being noted to have altered mental status changes. Last well-known 1:05 PM 01/23/2023. Initially patient was not speaking and would not smile or follow any commands. Telestroke was paged at 3:25 PM and keppra loading with Neurological imaging were recommended. Chest x-ray negative for acute cardiopulmonary disease Head CT, head/ neck CTA were negative for ischemia, midline shift, acute subdural or intracranial hemorrhage. Brain MRI w/o co on 01/23/23 was negative for acute ischemia, masses or tumors or hemorrhage. Repeat CT head noted sulcal effacement within anterior frontal lobe. MRI brain w/wo co on 01/24/23 though motion compromised noted small foci of restricted diffusion in high left anterior frontal convexity. Differential include acute/subacute ischemia vs infection CRP and ESR are elevated TSH normal. 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 Change to po TTE reviewed. EF 55-60%, mild conc LVH, G 1 DD, no evidence of ASD or interatrial shunt Start atorvastatin 40mg daily Rheumatoid arthritis: Chronic stable On Humira q. 8 weeks; hold while inpatient Takes prednisone 5 mg daily. Prednisone high dose as above COPD emphysema and bronchiectasis: Per Admitting Dr, patient had cough with thick yellow sputum Pt saw Pulmonary on 11/16 and recommended Bronchoscopy. Patient canceled bronch as he did not want to drive to [facility] for it and wanted to possibly switch to [facility] for further evaluation. Pulm evaluation noted Will need pulm eval outpatient to continue workup CKD: On admission, Creatinine 1.34; baseline per [facility] records 1.2-1.4 Cr is 0.94 today Bradycardia Hypertension: HR has been running in 40s over the past 24h Reviewed TTE and tele Will resume home amlodipine today. If BP remains stable, resume home ACEI tomorrow Cardiology evaluated. Tele today noted paroxysmal Afib. Installment Account Checker recommend starting eliquis. ASA 81mg stopped Disposition: PCP: Dr. Joseph CODE STATUS: Full code VTE prophylaxis: Shrutiqugamal PT/OT/APPRENTICE [facility]EM[facility] THIRD STEP eval noted CM working on placement Updated I spent a total of 50 minutes coordinating, documenting and providing care for this patient excluding time spent in performance of separately billed services Admission and Anticipated Discharge Date Admission Date: January 23, 2023 Subjective Patient seen and examined Expressive aphasia is much improved He is alert and oriented to person, place, month Has some confusion this morning Denied any headache, dizziness, dysphagia/odynophagia, chest pain, cough, SOB, nausea, vomiting, abd pain Denied any complaints on ROS Physical Exam Constitutional: + well hydrated; no acute distress Eyes: PERRL, conjunctivae normal, anicteric sclerae ENMT: external ear and nose normal, oropharynx normal Respiratory: normal respiratory effort, lungs clear to auscultation Cardiovascular: Rate/Rhythm: regular rhythm and + bradycardic S1 S2 Gastrointestinal (Abdomen): normal bowel sounds, soft, nontender, no hepatosplenomegaly Musculoskeletal: No pedal edema Neurologic: PERRL, EOMI, accommodation nl, no face palsy, no dysarthria +some expressive aphasia Follows all commands appropriately. Power is normal in all extremities Alert and oriented to person, place and month Some confusion especially with complex conversations Results & Data Results & Data Vital Signs (Past 12 Hours) Vital Signs Temp Pulse Pulse Pulse Resp BP Pulse Ox 01/29/23 09:46 45 L 01/29/23 07:26 36.6 C 57 L 20 133/91 94 01/29/23 03:00 36.6 C 51 L 24 122/72 98 01/29/23 02:20 52 L 01/28/23 23:55 54 L Pulse Ox O2 Del Method O2 Del Method 01/29/23 09:46 01/29/23 07:26 Room Air 01/29/23 03:00 Room Air 01/29/23 02:20 98 Room Air 01/28/23 23:55 98 Room Air Laboratory Results Abnormal lab results 01/29/23 01/29/23 01/29/23 Range/Units 05:38 05:38 05:38 WBC 10.95 H (4.8-10.8) K/ul RBC 4.32 L (4.70-6.10) M/uL Hgb 12.6 L (14.0-18.0) g/dl Hct 39.5 L (42.0-52.0) % MCHC 31.9 L (32.0-36.0) g/dL ESR 84 H (0-20) mm/hr BUN 25 H (6-23) mg/dl BUN/Creatinine Ratio 26.6 H (10-20) Calcium 8.4 L (8.6-10.3) mg/dl Phosphorus 2.4 L D (2.5-4.9) mg/dl C-Reactive Protein 6.00 H (0-0.5) mg/dl
[2023-01-29] MEDS: ATORVASTATIN 40 MG TAB PO SCH (10:56)
--- NOTE | 2023-01-29 11:31 | Neurology Progress Note ---
Date of Service January 29, 2023 Assessment & Plan (1) Cerebritis: (2) Stroke: Plan 77-year-old male with a history of rheumatoid arthritis, presenting with mixed aphasia and a focal area of left frontal meningeal thickening and a few small associated punctate infarcts concerning for focal cerebritis. CSF analysis negative for infection. This patient may have a small area of focal cerebritis related to his underlying autoimmune disease/RA. Of course, an unidentified infectious etiology cannot be completely excluded. Would transition to an oral antimicrobial regimen. Would continue with corticosteroids although would discontinue dexamethasone, restart prednisone at a higher dosage, 60 mg/day with gradual outpatient taper. He should follow-up with rheumatology as well. Would also consider checking an STAN screen with titer, ANCA antibodies, SSA/SSB, ZHANNA, rheumatoid factor. May transition from IV Keppra to tablets, same dose, 500 mg twice daily. Discussed with hospitalist. Admission and Anticipated Discharge Date Admission Date: January 23, 2023 Subjective Follow-up regarding abnormal brain MRI The patient is a 77-year-old male who was admitted to the [facility] on January 23 in the context of multiple falls, confusion, he was initially seen in neurological consultation with Dr. Stephens on January 24 and felt to have an element of mixed aphasia. Limited MRI at that time revealed findings potentially consistent with left frontal cerebritis or inflammation due to some nonspecific dural thickening. A lumbar puncture was completed on January 25. CSF was clear, colorless, no xanthochromia, CSF WBC 291, RBC 1, glucose 42, CSF protein 114.9. CSF PCR is negative for infection. He has been receiving broad-spectrum antimicrobial therapy including ceftriaxone, ampicillin, as well as dexamethasone. His history is also notable for rheumatoid arthritis for which he has been prescribed prednisone long-term and Humira. A follow-up brain MRI was completed January 24, 2023 which revealed a few small foci of restricted diffusion in the high left anterior frontal convexity, not seen on the previous MRI, and adjacent to the previously observed area of dural thickening potentially consistent with subacute ischemia and associated inflammatory process. I did independently review these images. The patient remains modestly confused this morning and has some difficulty with expressive speech. He denies headache, fever, neck pain or stiffness. Review of Systems Constitutional: no fever and no chills Eyes: no blind spots and no diplopia Ear, Nose, Mouth, Throat: no hearing loss Neurologic: as per Subjective / HPI; no localized weakness, no loss of sensation, no tremor(s) and no headache(s) Results & Data Vital Signs (Past 12 Hours) Vital Signs Temp Pulse Pulse Pulse Resp BP Pulse Ox 01/29/23 10:51 36.6 C 50 L 20 146/83 H 96 01/29/23 09:46 45 L 01/29/23 07:26 36.6 C 57 L 20 133/91 94 01/29/23 03:00 36.6 C 51 L 24 122/72 98 01/29/23 02:20 52 L 01/28/23 23:55 54 L Pulse Ox O2 Del Method O2 Del Method 01/29/23 10:51 Room Air 01/29/23 09:46 01/29/23 07:26 Room Air 01/29/23 03:00 Room Air 01/29/23 02:20 98 Room Air 01/28/23 23:55 98 Room Air Laboratory Results WBC 10.95, hemoglobin 12.6, hematocrit 39.5, platelet count 377, ESR 84, sodium 140, potassium 3.7, BUN 25, creatinine 0.94, glucose 83, calcium 8.4, magnesium 1.8, CRP 6.00 Exam (Neuro) Constitutional: + frail appearing Neurologic: Oriented to:: Person and Place Attention: Span Intact; negative Concentration Intact Speech Fluency: negative Dysarthria Speech Aphasia: Aphasia (mild) Cranial Nerves: Normal II, III, IV, , V, VII, VIII, IX, X, XI and XII Motor Strength: Normal Lower Extremities and Normal Upper Extremities; negative Hemiparesis Muscle Bulk/Involuntary Movements: No Involuntary Movements Sensation: Light Touch Intact and Proprioception Intact Coordination: negative Dysdiadochokinesia, Finger-Nose Abnormal or Heel-Granda Abnormal Deep Tendon Reflexes: Rt Triceps: 2+, Lt Triceps: 2+, Rt Biceps: 2+, Lt Biceps: 2+, Rt Brachioradialis: 2+, Lt Brachioradialis: 2+, Rt Patellar: 2+ and Lt Patellar: 2+ Coding Level of Care Code 98543 SUB INP/OBS CARE 2/35MIN Diagnoses Cerebritis G04.90 Stroke I63.9
[2023-01-29] MEDS ORDERED: amLODIPine BESYLATE 5 MG TAB PO ONE (12:08)
[2023-01-29] MEDS: predniSONE 20 MG TAB PO SCH (13:19)
--- NOTE | 2023-01-29 15:00 | Cardiology Progress Note ---
Date of Service January 29, 2023 Assessment & Plan (1) Sinus bradycardia: (2) Paroxysmal atrial fibrillation: (3) Stroke: (4) Cerebritis: Plan -Telemetry reveals predominant rhythm of sinus bradycardia in the 40s to 50s, occasional premature atrial contractions observed. On 01/29/2023 at 2:18 AM the patient in brief episode of atrial fibrillation with spontaneous conversion to sinus bradycardia with a 3.5-second conversion pause. There is a second episode of an irregular rhythm with a nonspecific intraventricular conduction delay observed with rates ranging from 75 to 100 bpm that also appears to be atrial fibrillation with conversion to sinus rhythm. Updates reviewed with Neurology for the purpose of coordination of care. At this time we will start Eliquis, 5 mg twice daily. First dose now, next dose tomorrow morning. Admission and Anticipated Discharge Date Admission Date: January 23, 2023 Subjective Patient seen in cardiology follow-up. Cognitive issues persist. Physical Exam Constitutional: + thin Respiratory: normal respiratory effort, lungs clear to auscultation Cardiovascular: RRR, no murmur, no edema Gastrointestinal (Abdomen): normal bowel sounds, soft, nontender, no hepatosplenomegaly Neurologic: Patient moves all 4 extremities upon request. Ongoing cognitive issues noted with word finding difficulties and confabulation Results & Data Vital Signs (Past 12 Hours) Vital Signs Temp Pulse Pulse Resp BP Pulse Ox O2 Del Method 01/29/23 10:51 36.6 C 50 L 20 146/83 H 96 Room Air 01/29/23 09:46 45 L 01/29/23 07:26 36.6 C 57 L 20 133/91 94 Room Air 01/29/23 03:00 36.6 C 51 L 24 122/72 98 Room Air Laboratory Results CBC 01/29/23 Range/Units 05:38 WBC 10.95 H (4.8-10.8) K/ul RBC 4.32 L (4.70-6.10) M/uL Hgb 12.6 L (14.0-18.0) g/dl Hct 39.5 L (42.0-52.0) % Plt Count 377 (130-400) K/uL Comprehensive Metabolic Panel 01/29/23 Range/Units 05:38 Sodium 140 (136-145) mmol/L Potassium 3.7 (3.5-5.1) mmol/L Chloride 106 (98-107) mmol/L Carbon Dioxide 28 (21-32) mmol/L BUN 25 H (6-23) mg/dl Creatinine 0.94 (0.6-1.4) mg/dl Glucose 83 (70-99(Fasting)) mg/dl Calcium 8.4 L (8.6-10.3) mg/dl Intake and Output 01/28/23 01/29/23 01/29/23 22:59 06:59 14:59 Intake Total 599 / 1738 216 / 1738 763 / 763 Output Total 200 / 850 450 / 850 Balance 399 / 888 -234 / 888 763 / 763 Intake: IV 499 / 998 216 / 998 283 / 283 Ampicillin 2,000 mg In 0.9 % 324 / 648 216 / 648 108 / 108 Sodium Chloride 100 ml @ 200 mls/hr IV Q4H EBENE[facility]ER Rx#:[id number] cefTRIAXone SODIUM 2,000 mg In 70 / 140 70 / 70 Dextrose 5% 50 ml @ 100 mls/hr IV Q12 [facility] Rx#:[id number] levETIRAcetam 500 mg In 0.9 % 105 / 210 105 / 105 Sodium Chloride 100 ml @ 420 mls/hr IV Q12H [facility] Rx#:[id number] Oral 100 / 740 480 / 480 Output: Urine 200 / 850 450 / 850 Other: # Unmeasured Voids 1 3 Weight 67.7 kg
[2023-01-29] MEDS ORDERED: APIXABAN 5 MG TABLET PO SCH (16:00)
[2023-01-29] MEDS: levETIRAcetam 500 MG TAB PO SCH (20:20)
[2023-01-30] MEDS: AMPICILLIN 2,000 MG in 0.9 % SODIUM CHLORIDE 100 ML IV SCH ×6 (02:14→22:06)
[2023-01-30 06:39] LABS: Hematocrit (blood only) 34.9 % (42.0-52.0); Hemoglobin 11.6 g/dl (14.0-18.0); Mean Corpuscular Hemoglobin 29.6 pg (25.0-34.0); Mean Corpuscular Hgb Conc 33.2 g/dL (32.0-36.0); Platelet Count 344 K/uL (130-400); RDW Coefficient of Variation 13.6 % (11.5-14.5); RDW Standard Deviation 43.8 fL (36.4-46.3); Red Blood Count 3.92 M/uL (4.70-6.10); White Blood Count 15.71 K/ul (4.8-10.8)
--- OUTSIDE RECORDS SUMMARY | 2023-01-30 06:52 | External Medical Summary ---
Author Name Unknown Address Unknown Organization K01[place] [place] [address] [place] [id number] Laboratory Report Ordering Provider Test Date Status KATHY RAE 01/23/2023 12:00:57 Final Observation Date Value Abnormality Reference (Units ) Status CRP, low-sensitivity 01/23/2023 12:00:57 121 Above high normal <=5 (mg/L) Final Performing Location [facility] - [address] [place] [id number]
[2023-01-30 07:02] LABS: BUN Creatinine Ratio 23.3 (10-20); Calcium 8.2 mg/dl (8.6-10.3); Est GFR (African American) 102.2 ml/min; Est GFR (Non-African American) 88.2 ml/min; Magnesium 1.8 mg/dl (1.7-2.4); Phosphorus 3.3 mg/dl (2.5-4.9); Potassium 3.8 mmol/L (3.5-5.1)
[2023-01-30] MEDS: levETIRAcetam 500 MG TAB PO SCH ×2 (08:55→20:18)
[2023-01-30] MEDS: ATORVASTATIN 40 MG TAB PO SCH (08:55)
[2023-01-30] MEDS: APIXABAN 5 MG TABLET PO SCH ×2 (08:55→20:18)
[2023-01-30] MEDS: predniSONE 20 MG TAB PO SCH (08:55)
[2023-01-30] MEDS: amLODIPine BESYLATE 5 MG TAB PO SCH (08:55)
[2023-01-30] MEDS: cefTRIAXone SODIUM 2,000 MG in DEXTROSE 5% 50 ML IV SCH ×2 (08:58→20:24)
--- NOTE | 2023-01-30 15:22 | Hospitalist Progress Note ---
Date of Service January 30, 2023 Assessment & Plan (1) Mixed aphasia: (2) HTN (hypertension): (3) Altered mental status: (4) Rheumatoid arthritis: (5) COPD (chronic obstructive pulmonary disease): (6) Fever of unknown origin: Plan per admitting service notes with addendum: Mixed Aphasia: Altered mental status secondary to: Focal Cerebritis Acute CVA , L Anterior Frontal Convexity 77-year-old male with history of rheumatoid arthritis (on Humira Q 8 weeks), spinal stenosis, HTN, pernicious anemia, COPD emphysema that presented to the ED after being noted to have altered mental status changes. Last well-known 1:05 PM 01/23/2023. Initially patient was not speaking and would not smile or follow any commands. Telestroke was paged at 3:25 PM and keppra loading with Neurological imaging were recommended. Chest x-ray negative for acute cardiopulmonary disease Head CT, head/ neck CTA were negative for ischemia, midline shift, acute subdural or intracranial hemorrhage. Brain MRI w/o co on 01/23/23 was negative for acute ischemia, masses or tumors or hemorrhage. Repeat CT head noted sulcal effacement within anterior frontal lobe. MRI brain w/wo co on 01/24/23 though motion compromised noted small foci of restricted diffusion in high left anterior frontal convexity. Differential include acute/subacute ischemia vs infection CRP and ESR are elevated TSH normal. 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 Change to po TTE reviewed. EF 55-60%, mild conc LVH, G 1 DD, no evidence of ASD or interatrial shunt Start atorvastatin 40mg daily 01/30 doing better afebrile ambulating better continue Ceftri + Ampicillin Day 10/31 continue Prednisone 60mg daily, then taper by 10mg daily every week until 10mg daily Rheumatoid arthritis: Chronic stable On Humira q. 8 weeks; hold while inpatient Takes prednisone 5 mg daily. Prednisone high dose as above COPD emphysema and bronchiectasis: Per Admitting Dr, patient had cough with thick yellow sputum Pt saw Pulmonary on 11/16 and recommended Bronchoscopy. Patient canceled bronch as he did not want to drive to [facility] for it and wanted to possibly switch to [facility] [place] for further evaluation. Pulm evaluation noted Will need pulm eval outpatient to continue workup CKD: On admission, Creatinine 1.34; baseline per [facility] records 1.2-1.4 Cr is 0.94 today Bradycardia Hypertension: HR has been running in 40s over the past 24h Reviewed TTE and tele Will resume home amlodipine today. If BP remains stable, resume home ACEI tomorrow Cardiology evaluated. Tele today noted paroxysmal Afib. Aligner Barrel And Receiver recommend starting eliquis. ASA 81mg stopped 9/6 HR in the 50s on Eliquis Disposition: PCP: Dr. Joseph CODE STATUS: Full code VTE prophylaxis: Eliquis PT/OT/DATA ANALYST ETL DEVELOPER eval noted CM working on placement Admission and Anticipated Discharge Date Admission Date: January 23, 2023 Subjective ff up for focal cerebritis, CVA, etc seen resting in bed, comfortable states he feels ok overall was able to walk along the halls even if he feels tired no new focal neurologic symptoms no chest pain, dyspnea, palpitations, dizziness no other new symptoms Review of Systems Review of Systems: all noted and negative except for above Physical Exam Physical Exam: General- oriented x 3, not in distress, speaks in sentences with no effort or accessory muscle use Eyes- anicteric Neck- no JVD Lungs- clear breath sounds bilaterally, no crackles/ wheezing Heart- normal rate, regular rhythm; no murmurs Abdomen- normal bowel sounds, nondistended, soft, nontender Extremities- no pretibial edema, no calf tenderness Neuro- alert, oriented x 3; no gross focal neurologic deficits Skin- warm & dry Results & Data Results & Data Vital Signs (Past 12 Hours) Vital Signs Temp Pulse Pulse Resp BP Pulse Ox O2 Del Method 01/30/23 12:03 Room Air 01/30/23 10:56 36.8 C 52 L 20 159/80 H 98 Room Air 01/30/23 07:40 46 L 09/06/23 07:19 36.7 C 56 L 20 146/87 H 98 Room Air all noted and reviewed including below
[2023-01-30 18:06] LABS: CSF, LDH 49 U/L (<=25); Lyme DNA PCR CSF or Synovial Not Detected (Not Detected); Lyme DNA Source CSF
--- NOTE | 2023-01-30 18:42 | Cardiology Progress Note ---
Date of Service January 30, 2023 Assessment & Plan (1) Sinus bradycardia: (2) Paroxysmal atrial fibrillation: (3) Stroke: (4) Cerebritis: Plan On 01/29/2023 at 2:18 AM the patient in brief episode of atrial fibrillation with spontaneous conversion to sinus bradycardia with a 3.5-second conversion pause. -Continue Rocephin, ampicillin, atorvastatin, Keppra, prednisone, amlodipine, Eliquis 5 mg twice daily started on 01/29/2023. Admission and Anticipated Discharge Date Admission Date: January 23, 2023 Subjective Patient's mental status improved slightly. Although sinus bradycardia in the 40s noted for seeing this morning, sinus rhythm in the 60s with occasional PACs noted at the time my assessment later in the afternoon. No recurrence of atrial fibrillation observed. Physical Exam Constitutional: + thin; no acute distress Eyes: PERRL, conjunctivae normal, anicteric sclerae Respiratory: normal respiratory effort, lungs clear to auscultation Cardiovascular: RRR, no murmur, no edema Gastrointestinal (Abdomen): normal bowel sounds, soft, nontender, no hepatosplenomegaly Musculoskeletal: no cyanosis or clubbing, extremities motor strength 5/5 Results & Data Vital Signs (Past 12 Hours) Vital Signs Temp Pulse Pulse Resp BP Pulse Ox O2 Del Method 01/30/23 17:12 58 L 01/30/23 15:41 36.7 C 60 20 152/82 H 94 Room Air 01/30/23 12:03 Room Air 01/30/23 10:56 36.8 C 52 L 20 159/80 H 98 Room Air 01/30/23 07:40 46 L 01/30/23 07:19 36.7 C 56 L 20 146/87 H 98 Room Air
[2023-01-31] MEDS: AMPICILLIN 2,000 MG in 0.9 % SODIUM CHLORIDE 100 ML IV SCH ×6 (00:50→21:23)
[2023-01-31] MEDS: predniSONE 20 MG TAB PO SCH (08:10)
[2023-01-31] MEDS: APIXABAN 5 MG TABLET PO SCH ×2 (08:10→20:55)
[2023-01-31] MEDS: amLODIPine BESYLATE 5 MG TAB PO SCH (08:10)
[2023-01-31] MEDS: ATORVASTATIN 40 MG TAB PO SCH (08:12)
[2023-01-31] MEDS: levETIRAcetam 500 MG TAB PO SCH ×2 (08:12→20:55)
[2023-01-31] MEDS: cefTRIAXone SODIUM 2,000 MG in DEXTROSE 5% 50 ML IV SCH ×2 (08:12→20:48)
--- NOTE | 2023-01-31 18:38 | Cardiology Progress Note ---
Date of Service January 31, 2023 Assessment & Plan (1) Sinus bradycardia: (2) Paroxysmal atrial fibrillation: (3) Stroke: (4) Cerebritis: Plan On 01/29/2023 at 2:18 AM the patient in brief episode of atrial fibrillation with spontaneous conversion to sinus bradycardia with a 3.5-second conversion pause. Brief second episode of atrial fibrillation also observed on 01/29/2023 without recurrence in the meantime. Sinus bradycardia resolved. -Continue Rocephin, ampicillin, atorvastatin, Keppra, prednisone, amlodipine, Eliquis 5 mg twice daily started on 01/29/2023. Admission and Anticipated Discharge Date Admission Date: January 23, 2023 Subjective Patient and spouse both feel like he has had a subtle improvement in his cognitive status. He is currently still has some degree of difficulty however. Telemetry reveals sinus rhythm in the 50s to 60s with occasional PACs and PVCs. The prolonged bradycardia noted earlier this admission is no longer present. No atrial fibrillation noted at present. Physical Exam Constitutional: + thin; no acute distress Eyes: PERRL, conjunctivae normal, anicteric sclerae Respiratory: normal respiratory effort, lungs clear to auscultation Cardiovascular: RRR, no murmur, no edema Gastrointestinal (Abdomen): normal bowel sounds, soft, nontender, no hepatosplenomegaly Musculoskeletal: no cyanosis or clubbing, extremities motor strength 5/5 Results & Data Vital Signs (Past 12 Hours) Vital Signs Temp Pulse Pulse Resp BP BP Pulse Ox 01/31/23 17:06 36.5 C 60 21 154/86 H 97 01/31/23 10:47 36.6 C 65 20 139/81 95 01/31/23 08:00 36.6 C 59 L 21 159/77 H 96 01/31/23 07:16 47 L O2 Del Method 01/31/23 17:06 Room Air 01/31/23 10:47 Room Air 01/31/23 08:00 Room Air 01/31/23 07:16
--- NOTE | 2023-01-31 18:39 | Hospitalist Progress Note ---
Date of Service January 31, 2023 Assessment & Plan (1) Mixed aphasia: (2) HTN (hypertension): (3) Altered mental status: (4) Rheumatoid arthritis: (5) COPD (chronic obstructive pulmonary disease): (6) Fever of unknown origin: Plan per admitting service notes with addendum: Mixed Aphasia: Altered mental status secondary to: Focal Cerebritis Acute CVA , L Anterior Frontal Convexity 77-year-old male with history of rheumatoid arthritis (on Humira Q 8 weeks), spinal stenosis, HTN, pernicious anemia, COPD emphysema that presented to the ED after being noted to have altered mental status changes. Last well-known 1:05 PM 01/23/2023. Initially patient was not speaking and would not smile or follow any commands. Telestroke was paged at 3:25 PM and keppra loading with Neurological imaging were recommended. Chest x-ray negative for acute cardiopulmonary disease Head CT, head/ neck CTA were negative for ischemia, midline shift, acute subdural or intracranial hemorrhage. Brain MRI w/o co on 01/23/23 was negative for acute ischemia, masses or tumors or hemorrhage. Repeat CT head noted sulcal effacement within anterior frontal lobe. MRI brain w/wo co on 01/24/23 though motion compromised noted small foci of restricted diffusion in high left anterior frontal convexity. Differential include acute/subacute ischemia vs infection CRP and ESR are elevated TSH normal. 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 Change to po TTE reviewed. EF 55-60%, mild conc LVH, G 1 DD, no evidence of ASD or interatrial shunt Start atorvastatin 40mg daily 01/31 improving afebrile ambulating better continue Ceftri + Ampicillin Day 7/7 continue Prednisone 60mg daily, then taper by 10mg daily every week until 10mg daily PT/OT Rheumatoid arthritis: Chronic stable On Humira q. 8 weeks; hold while inpatient Takes prednisone 5 mg daily. Prednisone high dose as above COPD emphysema and bronchiectasis: Per Admitting Dr, patient had cough with thick yellow sputum Pt saw Pulmonary on 11/16 and recommended Bronchoscopy. Patient canceled bronch as he did not want to drive to [facility] for it and wanted to possibly switch to [facility] [place] further evaluation. Pulm evaluation noted Will need pulm eval outpatient to continue workup CKD: On admission, Creatinine 1.34; baseline per [facility] records 1.2-1.4 Cr is 0.94 today Bradycardia Hypertension: HR has been running in 40s over the past 24h Reviewed TTE and tele Will resume home amlodipine today. If BP remains stable, resume home ACEI tomorrow Cardiology evaluated. Tele today noted paroxysmal Afib. Logistics Supervisor recommend starting eliquis. ASA 81mg stopped 9/7 HR in the 60s on Eliquis Disposition: PCP: Dr. 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 CM working on placement Admission and Anticipated Discharge Date Admission Date: January 23, 2023 Subjective ff up for focal cerebritis, CVA, etc seen resting in chair, comfortable states he feels fine overall feels he is improving daily less weak no chest pain, dyspnea, palpitations, dizziness no focal neuro deficits Review of Systems Review of Systems: all noted and negative except for above Physical Exam Physical Exam: General- oriented x 3, not in distress, speaks in sentences with no effort or accessory muscle use Eyes- anicteric Neck- no JVD Lungs- clear breath sounds bilaterally, no rales/wheezes Heart- normal rate, regular rhythm; no murmurs Abdomen- normal bowel sounds, nondistended, soft, nontender Extremities- no pretibial edema, no calf tenderness Neuro- alert, oriented x 3; no gross focal neurologic deficits Skin- warm & dry Results & Data Results & Data Vital Signs (Past 12 Hours) Vital Signs Temp Pulse Pulse Resp BP BP Pulse Ox 01/31/23 17:06 36.5 C 60 21 154/86 H 97 01/31/23 10:47 36.6 C 65 20 139/81 95 01/31/23 08:00 36.6 C 59 L 21 159/77 H 96 01/31/23 07:16 47 L O2 Del Method 01/31/23 17:06 Room Air 01/31/23 10:47 Room Air 01/31/23 08:00 Room Air 01/31/23 07:16 all noted and reviewed including below
[2023-01-31 19:53] LABS: BUN Creatinine Ratio 27.8 (10-20); Calcium 8.6 mg/dl (8.6-10.3); Creatinine Clr Calc Pharmacy 55.7 ml/min; Est GFR (African American) 85.7 ml/min; Est GFR (Non-African American) 73.9 ml/min; Magnesium 1.9 mg/dl (1.7-2.4)
[2023-01-31] MEDS ORDERED: ALBUMIN 25% 12.5 GM/50 ML VIAL IV ONE (20:06)
[2023-01-31] MEDS ORDERED: MAGNESIUM SULFATE / D5W 1 GM/100 ML BAG IV ONE (20:15)
[2023-02-01] MEDS: AMPICILLIN 2,000 MG in 0.9 % SODIUM CHLORIDE 100 ML IV SCH ×2 (02:03→06:02)
[2023-02-01] MEDS ORDERED: ATROPINE SULFATE 0.1 MG/ML 10ML SYR IV PRN (03:46)
[2023-02-01] MEDS: ATORVASTATIN 40 MG TAB PO SCH (08:36)
[2023-02-01] MEDS: levETIRAcetam 500 MG TAB PO SCH (08:36)
[2023-02-01] MEDS: amLODIPine BESYLATE 5 MG TAB PO SCH (08:36)
[2023-02-01] MEDS: APIXABAN 5 MG TABLET PO SCH (08:36)
[2023-02-01] MEDS: predniSONE 20 MG TAB PO SCH (08:37)
[2023-02-01] MEDS ORDERED: PANTOprazole 40 MG TAB PO SCH (09:00)
--- NOTE | 2023-02-01 14:05 | Discharge Summary ---
Discharge Summary Date of Service February 01, 2023 Notes For Next Care Provider Medication Changes From Visit PLEASE REFER TO ASSESSMENT AND PLAN BELOW Admission HPI Per Admitting Provider Mr. Garcia is a 77-year-old male that presented to the ED after being noted to have altered mental status changes. Last well-known 1:05 PM 01/23/2023. Initially patient was not speaking and would not smile or follow any commands. Telestroke was paged at 3:25 PM and was recommended to give 1 g loading Keppra and obtain neurology imaging MRI was performed and negative no TNK adm inistration was advised at that time and he was recommended to administer another 1 g of Keppra with continuation of Keppra 500 mg twice daily daily starting tomorrow. Chest x-ray negative for acute cardiopulmonary disease, head CT, head neck CTA negative for ischemia, midline shift, acute subdural or intracranial hemorrhage. Brain MRI negative for acute ischemia, masses or tumors or hemorrhage. Will repeat head CT in AM. reports intermittent fevers over the past few days with the most recent one being yesterday. No leukocytosis WBC 8.38, no electrolyte disturbance. Creatinine 1.34 baseline creatinine per outpatient records 1.2-1.4 Recent ER visit on 12/30/2022 status post fall when he was leaving his home to take his for an outpatient follow-up appointment in [place]. He did report at that time some increased ANDERSEN and fatigue. No head injuries but was found to have a left finger dislocation/fracture. Since December 30 he has been otherwise well outside of chronic rheumatoid arthritis joint pain. Has recently had a abnormal chest CT with lymphadenopathy and was scheduled to have a bronchoscopy but canceled due to the drive. Additional past medical history includes rheumatoid arthritis (on Humira Q 8 weeks), spinal stenosis, HTN, pernicious anemia, COPD emphysema. Was advised to follow up with Ortho. Per review of outpatient records patient reported at his pulmonary appointment that he has had recent weight loss with decreased appetite. CT scan on 11/14: CT SCAN 11/14/22: 1. Extensive predominantly ground-glass nodularity with tree-in-bud morphology most pronounced lower lungs. Likely inflammatory/infectious. 2. Some additional more solid small lung nodularity which could also be inflammatory/infectious however close follow-up CT in 3 months suggested to assure stability/resolution. 3. Advanced emphysema. 4. Bilateral slightly bulky axillary lymphadenopathy, nonspecific. Correlate clinically. 5. See above for other details. 6. Heterogeneous enlarged right lobe of thyroid with suspected multiple internal nodules. Consider future thyroid ultrasound. Patient saw Pulmonary on 11/16 with the following recommendations: Bronchoscopy under general anesthesia (no C arm and no EBUS), Blood for connective tissue screening, Spirogram, Bronchodilator nebulization and flutter device. Patient canceled bronchoscopy as he did not want to drive to [facility] for it and wanted to possibly switch to [facility] for further evaluation. On examination, patients at bedside. Pt unable to converse or follow commands; by the end of our conversation he was able to shrug shoulders and wave goodbye to me. Otherwise, unable to provide any history. reports improvement from when they arrived to ED as patient was able to laugh and hold her hand. PERCAROLE. is ill herself with cancer and colostomy. She states they depend heavily on each other. Open to inpatient rehab. States that he does not have an official advanced directive; knows that he would not want any retirement nutrition if it would come to that. 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 Significant smoking history of about [id number] smoking history; quit in 1990. No pets at home and on no supplemental O2. Complex gentleman with mixed aphagia and negative neuro imaging; will repeat head CT in AM and obtain blood, urine, and sputum cultures. Additionally with chronic lung disease, including bronchiectasis, intermittent fever of unknown origin, deconditioned and sedentary from rheumatoid arthritis. Patient will be admitted for further evaluation and management. Please see A/P for further details. Admission Exam Per Admitting Provider Neuro: AAOx1, PERRLA, mixed aphagia, memory changes, NIH 7. Pt able to shrug shoulders and wave hands on command HEENT: head normocephalic, moist mucus membranes CV: S1/S2, (-) M/G/R, (-) edema, cap refill < 3 seconds Resp: Lungs CTA in all abarca. On RA GI: Abdomen S/NT/ND, Ax4 bowel sounds, (-) CVA tenderness Musculoskeletal: 5/5 B/L UE strength, 5/5 B/L LE strength. No gait disturbance Skin: (-) rashes , (-) erythema. (+) bunyons on bl great toes with erythema. Psych: unable to assess; laughing unintentionally Principal Dx & Hospital Course #1 = Principal Diagnosis (1) Mixed aphasia: (2) HTN (hypertension): (3) Altered mental status: (4) Rheumatoid arthritis: (5) COPD (chronic obstructive pulmonary disease): Plan per admitting service notes with addendum: Mixed Aphasia and Altered mental status secondary to: Focal Cerebritis Acute CVA , L Anterior Frontal Convexity 77-year-old male with history of rheumatoid arthritis (on Humira Q 8 weeks), spinal stenosis, HTN, pernicious anemia, COPD emphysema that presented to the ED after being noted to have altered mental status changes. Last well-known 1:05 PM 01/23/2023. Initially patient was not speaking and would not smile or follow any commands. Telestroke was paged at 3:25 PM and keppra loading with Neurological imaging were recommended. Chest x-ray negative for acute cardiopulmonary disease Head CT, head/ neck CTA were negative for ischemia, midline shift, acute subdural or intracranial hemorrhage. Brain MRI w/o co on 01/23/23 was negative for acute ischemia, masses or tumors or hemorrhage. Repeat CT head noted sulcal effacement within anterior frontal lobe. MRI brain w/wo co on 01/24/23 though motion compromised noted small foci of restricted diffusion in high left anterior frontal convexity. Differential include acute/subacute ischemia vs infection CRP and ESR are elevated TSH normal. Lyme screen negative LP done on 01/25/23 CSF analysis showed WBC of 291, CSF protein of 114.9 CSF cultures are negative CSF PCR negative for HSV Discussed with Neurologist Dr Coreria Thought to have Inflammatory process and small stroke based on all available result Possible focal cerebritis in a patient with rheumatoid arthritis Unlikely bacterial meningitis However will continue IV ceftriaxone 2g q12h, IV ampicillin to complete 7 day therapy Change dexamethasone to Prednisone 60mg daily with weekly taper by 10mg down to about 10mg daily (was on 5mg daily prior to presentation for his rheumatoid arthritis) Needs to follow up with his Rheum outpatient Get STAN, ANCA, SSA/SSB, RF, ZHANNA per Neuro Continue Keppra. Change to po TTE reviewed. EF 55-60%, mild conc LVH, G 1 DD, no evidence of ASD or interatrial shunt Start atorvastatin 40mg daily 02/01 improving daily afebrile ambulating better completed Ceftri + Ampicillin x 7 days continue Prednisone 60mg daily, then taper by 10mg daily every week until 10mg daily continue Keppra PO PT/OT Rheumatoid arthritis: Chronic stable On Humira q. 8 weeks; Humira on hold- please discuss with Operators Teacher when to resume Takes prednisone 5 mg daily. Prednisone high dose as above COPD emphysema and bronchiectasis: Per Admitting Dr, patient had cough with thick yellow sputum Pt saw Pulmonary on 11/16 and recommended Bronchoscopy. Patient canceled bronch as he did not want to drive to [facility] for it and wanted to possibly switch to [facility] for further evaluation. Pulm evaluation noted Will need pulm eval outpatient to continue workup CKD: On admission, Creatinine 1.34; baseline per [facility] records 1.2-1.4 Cr is 0.9 Paroxysmal Atrial Fibrillation Sinus Bradycardia Hypertension: HR has been running in 40s over the past 24h Reviewed TTE and tele Cardiology evaluated. Tele today noted paroxysmal Afib. Entry Level Automotive Technician recommend starting eliquis. ASA 81mg stopped 9/7 HR in the 60s continue Eliquis continue Amlodipine ff up with Entry Level Automotive Technician Dr. Christianson Transition to [facility] Discharge Exam General- oriented x 3, not in distress, speaks in sentences with no effort or accessory muscle use Eyes- anicteric Neck- no JVD Lungs- clear breath sounds bilaterally, no rales/wheezes Heart- normal rate, regular rhythm; no murmurs Abdomen- normal bowel sounds, nondistended, soft, nontender Extremities- no pretibial edema, no calf tenderness Neuro- alert, oriented x 3; no gross focal neurologic deficits Skin- warm & dry Updated Medication List Medication Instructions Recorded Confirmed Type adalimumab 40 mg/0.8 mL 40 mg subcut Q14D 01/23/23 01/23/23 History subcutaneous pen kit (Humira Pen) albuterol sulfate 2.5 mg/3 mL 2.5 mg continuous nebulization Q4 01/23/23 3 History (0.083 %) solution for nebulization PRN Wheezing amlodipine 2.5 mg-benazepril 10 mg 1 cap PO QAM 01/23/23 01/23/23 History capsule cyanocobalamin (vitamin B-12) 1,000 mcg IM MONTHLY 01/23/23 01/23/23 History 1,000 mcg/mL injection solution prednisone 5 mg tablet 5 mg PO QAM PRN RA flares 01/23/23 01/23/23 History amlodipine 5 mg tablet (Norvasc) 2.5 mg PO QAM 30 days #15 tabs 02/01/23 Rx apixaban 5 mg tablet (Eliquis) 5 mg PO BID 30 days #60 tabs 02/01/23 Rx atorvastatin 40 mg tablet 40 mg PO QAM 30 days #30 tabs 02/01/23 Rx levetiracetam 500 mg tablet 500 mg PO BID 30 days #60 tabs 02/01/23 Rx (Keppra) pantoprazole 40 mg tablet,delayed 40 mg PO QAM 30 days #30 tabs 02/01/23 Rx release prednisone 20 mg tablet 60 mg PO DAILY #62 tabs 02/01/23 Rx Hospital Stay Data Consultations 01/23/23 17:32 ED Decision to Admit Stat 01/24/23 08:00 Consult Neurology Routine Consult Pulmonology Routine 01/27/23 13:06 Consult Cardiology Routine Diagnostic Imagining Performed Laboratory Results WBC 15.71 K/ul (4.8-10.8) H 01/30/23 06:16 RBC 3.92 M/uL (4.70-6.10) L 01/30/23 06:16 Hgb 11.6 g/dl (14.0-18.0) L 01/30/23 06:16 Hct 34.9 % (42.0-52.0) L 01/30/23 06:16 MCV 89.0 fL (80.0-100.0) 01/30/23 06:16 MCH 29.6 pg (25.0-34.0) 01/30/23 06:16 MCHC 33.2 g/dL (32.0-36.0) 01/30/23 06:16 RDW Std Deviation 43.8 fL (36.4-46.3) 01/30/23 06:16 RDW Coeff of Clint 13.6 % (11.5-14.5) 01/30/23 06:16 Plt Count 344 K/uL (130-400) 01/30/23 06:16 MPV 10.0 fL (9.4-12.4) 01/30/23 06:16 Immature Gran % (Auto) 0.8 % 01/23/23 15:14 Neut % (Auto) 77.1 % 01/23/23 15:14 Lymph % (Auto) 10.9 % 01/23/23 15:14 Clare % (Auto) 8.4 % 01/23/23 15:14 Eos % (Auto) 2.1 % 01/23/23 15:14 Baso % (Auto) 0.7 % 01/23/23 15:14 Neut # (Auto) 6.46 K/uL (1.40-6.50) 01/23/23 15:14 Lymph # (Auto) 0.91 K/uL (1.20-3.40) L 01/23/23 15:14 Clare # (Auto) 0.70 K/uL (0.11-0.59) H 01/23/23 15:14 Eos # (Auto) 0.18 K/uL (0.00-0.50) 01/23/23 15:14 Baso # (Auto) 0.06 K/uL (0.00-0.20) 01/23/23 15:14 Immature Gran # (Auto) 0.07 K/uL (0.01-0.20) 01/23/23 15:14 ESR 84 mm/hr (0-20) H 01/29/23 05:38 PT 12.1 Seconds (9.0-12.0) H 01/23/23 15:14 INR 1.1 (0.9-1.1) 01/23/23 15:14 APTT 29.3 Seconds (21.0-31.0) 01/23/23 15:14 PTT Ratio 1.0 01/23/23 15:14 Sodium 135 mmol/L (136-145) L 01/31/23 19:16 Potassium 4.0 mmol/L (3.5-5.1) 01/31/23 19:16 Chloride 102 mmol/L (98-107) 01/31/23 19:16 Carbon Dioxide 25 mmol/L (21-32) 01/31/23 19:16 Anion Gap 8 (3-11) 01/31/23 19:16 BUN 27 mg/dl (6-23) H 01/31/23 19:16 Creatinine 0.97 mg/dl (0.6-1.4) 01/31/23 19:16 Est Cr Clr Drug Dosing 55.7 ml/min 01/31/23 19:16 Est GFR ( Amer) 85.7 ml/min 01/31/23 19:16 Est GFR (Non-Af Amer) 73.9 ml/min 01/31/23 19:16 BUN/Creatinine Ratio 27.8 (10-20) H 01/31/23 19:16 Glucose 231 mg/dl (70-99(Fasting)) H 01/31/23 19:16 POC Glucose 144 mg/dl (70-99) H 01/23/23 15:13 Uric Acid 6.3 mg/dl (2.6-7.2) 01/23/23 20:35 Calcium 8.6 mg/dl (8.6-10.3) 01/31/23 19:16 Phosphorus 3.3 mg/dl (2.5-4.9) 01/30/23 06:16 Magnesium 1.9 mg/dl (1.7-2.4) 01/31/23 19:16 Total Bilirubin 0.3 mg/dl (0.2-1.0) 01/26/23 05:25 AST 9 U/L (13-39) L 01/26/23 05:25 ALT 6 U/L (7-52) L 01/26/23 05:25 Alkaline Phosphatase 50 U/L (34-104) 01/26/23 05:25 Troponin I High Sens 5.8 pg/ml (0-20) 01/23/23 15:14 C-Reactive Protein 6.00 mg/dl (0-0.5) H 01/29/23 05:38 Total Protein 6.7 gm/dl (6.0-8.3) 01/26/23 05:25 Albumin 2.6 gm/dl (3.4-5.0) L 01/26/23 05:25 Globulin 4.1 gm/dl (2.5-4.0) H 01/26/23 05:25 Albumin/Globulin Ratio 0.6 (0.9-2) L 01/26/23 05:25 Triglycerides 106 mg/dl (0-150) 01/27/23 06:04 Cholesterol 129 mg/dl (0-200) 01/27/23 06:04 LDL Cholesterol, Calc 83 mg/dl 01/27/23 06:04 VLDL Cholesterol, Calc 21 mg/dl (0-30) 01/27/23 06:04 HDL Cholesterol 25 mg/dl 01/27/23 06:04 Cholesterol/HDL Ratio 5.2 (0-5) H 01/27/23 06:04 Vitamin B12 780 pg/ml (180-914) 01/24/23 05:52 Procalcitonin 0.16 ng/ml (0-0.5) 01/29/23 05:38 TSH 1.318 uIu/ml (0.300-4.500) 01/24/23 10:14 Urine Color Leonard 01/23/23 Unknown Urine Appearance Clear (Clear) 01/23/23 Unknown Urine pH 6.5 (4.5-7.5) 01/23/23 Unknown Ur Specific [place] 1.041 (1.000-1.030) H 01/23/23 Unknown Urine Protein Trace (Negative) H 01/23/23 Unknown Urine Glucose (UA) Negative (Negative) 01/23/23 Unknown Urine Ketones Negative (Negative) 01/23/23 Unknown Urine Blood 3+ (Negative) H 01/23/23 Unknown Urine Nitrite Negative (Negative) 01/23/23 Unknown Urine Bilirubin Negative (Negative) 01/23/23 Unknown Urine Urobilinogen Negative (Negative) 01/23/23 Unknown Ur Leukocyte Esterase Negative (Negative) 01/23/23 Unknown Urine WBC (Auto) 1-5 /hpf (0-5) 01/23/23 Unknown Urine RBC (Auto) >30 /hpf (0-4) H 01/23/23 Unknown U Hyaline Cast (Auto) 1-5 /lpf (0-5) 01/23/23 Unknown U Epithel Cells (Auto) >30 /lpf (0-5) H 01/23/23 Unknown Urine Bacteria (Auto) Negative (Negative) 01/23/23 Unknown Ur Renal Epithelial Cell 0-5 /lpf (0-5) 01/23/23 Unknown Fld Lyme DNA (PCR) Not Detected (Not Detected) 01/25/23 09:56 Fluid Comment 01/25/23 09:56 CSF Appearance Clear 01/25/23 09:56 CSF Color Colorless 01/25/23 09:56 Xanthrochromic No xanthochromia 01/25/23 09:56 CSF WBC (Auto) 291 /uL (0-5) H* 01/25/23 09:56 CSF RBC 1 (0-) 01/25/23 09:56 CSF Cell Count Tube # 3 01/25/23 09:56 CSF Mononuclear % Auto 52.0 % 01/25/23 09:56 CSF Polynuclear WBCs 48.0 % 01/25/23 09:56 CSF Chemistry Tube # 1 01/25/23 09:56 CSF Glucose 42 mg/dl (40-70) 01/25/23 09:56 CSF LDH 49 U/L (<=25) H 01/25/23 09:56 CSF Lactate 23.3 mg/dL (10-22) H 01/25/23 09:56 CSF Total Protein 114.9 mg/dl (15-45) H 01/25/23 09:56 CSF C.neoform/gat PCR Not Detected (NotDetected) 01/25/23 09:56 CSF CMV DNA (PCR) Not Detected (NotDetected) 01/25/23 09:56 CSF Enterovirus (PCR) Not Detected (NotDetected) 01/25/23 09:56 CSF E. coli K1 (PCR) Not Detected (NotDetected) 01/25/23 09:56 CSF H. influenzae (PCR) Not Detected (NotDetected) 01/25/23 09:56 CSF HSV I (PCR) Not Detected (NotDetected) 01/25/23 09:56 CSF HSV II (PCR) Not Detected (NotDetected) 01/25/23 09:56 CSF HHV 6 (PCR) Not Detected (NotDetected) 01/25/23 09:56 CSF L.monocytogenes PCR Not Detected (NotDetected) 01/25/23 09:56 CSF N. meningitidis PCR Not Detected (NotDetected) 01/25/23 09:56 CSF Parechovirus (PCR) Not Detected (NotDetected) 01/25/23 09:56 CSF S. agalactiae (PCR) Not Detected (NotDetected) 01/25/23 09:56 CSF S. pneumoniae (PCR) Not Detected (NotDetected) 01/25/23 09:56 CSF VZV DNA (PCR) Not Detected (NotDetected) 01/25/23 09:56 Nasal Screen MRSA (PCR) Negative (Negative) 01/25/23 12:15 A. phagocytophilum DNA Negative (Negative) 01/24/23 10:14 Lyme Specimen Source CSF 01/25/23 09:56 Lyme Disease IgG Ab Negative (Negative) 01/24/23 10:14 Lyme Disease IgM Ab Negative (Negative) 01/24/23 10:14 Lyme DNA Comment see note 01/25/23 09:56 Impressions Chest X-Ray 01/23/23 15:11 SINGLE VIEW CHEST CLINICAL HISTORY: Neurological deficit. Stroke like symptoms. FINDINGS: An AP, portable, upright chest radiograph is compared to study dated 12/30/2022. Correlation is made with chest CT dated 06/15/2013. A right paratracheal density is unchanged and corresponds to a thyroid goiter. The heart is enlarged noting atherosclerotic calcification of the thoracic aorta. There is prominence of the pulmonary vasculature. Enlargement of the central pulmonary vessels suggest pulmonary artery hypertension. Emphysema and chronic interstitial thickening is similar to previous. A bullae in the left midlung is unchanged. Airspace opacities are seen at both lung bases. No large pleural effusion or pneumothorax is seen. The skeletal structures are osteopenic. The bony thorax is grossly intact. Degenerative change is noted throughout the thoracic spine. IMPRESSION: 1. Cardiomegaly and emphysema with prominence of the pulmonary vasculature. Correlate clinically for evidence of fluid overload/congestive change. 2. Dependent airspace opacities could represent scarring/atelectasis. An infectious/inflammatory pneumonitis is not excluded and clinical correlation will be required. ACT 112: Negative or not required by law. Electronically signed by: Yunier Ledesma M.D. 01/23/2023 3:46 PM Head CTA 01/23/23 15:11 CT angio neck with con, CT head/brain wo con, CT angio head w con CLINICAL HISTORY: neuro deficit, acute stroke suspected TECHNIQUE: Contiguous axial CT images of the head were acquired from the base of the skull to the vertex without intravenous contrast administration. CT angiography of the head and neck was performed following intravenous administration of iodinated contrast. Coronal and sagittal MIPS were obtained from the axial data set and were submitted for review. Automated dose lowering techniques and/or adjustment according to patient size were utilized for this examination. All measurements were calculated based on NASCET criteria. CT DOSE: 1296.86 mGy.cm Comparison: None available at the time of this dictation. FINDINGS: CT head: Areas of decreased attenuation are present in the periventricular and subcortical white matter bilaterally consistent with small vessel ischemic disease. Generalized cerebral atrophy with commensurate enlargement of the ventricles, sulci, and cisterns is also present. There is no acute intracranial hemorrhage or evidence of acute territorial infarction. No shift of the midline structures, mass effect, or extra-axial abnormalities are shown. Atherosclerotic calcifications are present in the intracranial segments of the internal carotid arteries. Biapical emphysema is seen. Multiple thyroid nodules are seen. CTA Neck: A 3 vessel aortic arch is shown. There is no significant atherosclerotic plaque in the aortic arch or the origins of the innominate, left common carotid, and left subclavian arteries. There is mild calcified atherosclerotic plaque at the bifurcation of the bilateral common carotid arteries without hemodynamically significant flow stenosis. There is no dissection present. The left vertebral artery is dominant. CTA Head: The anterior and posterior cerebral circulations are patent. Atherosclerotic disease is noted. IMPRESSION: 1. No acute intracranial hemorrhage, evidence of acute territorial infarction, or other acute intracranial disease process. 2. No occlusion, hemodynamically significant stenosis, or dissection in the major cervical arteries. 3. No occlusion, hemodynamically significant stenosis, aneurysm, dissection, or arteriovenous malformation in the major intracranial arteries. Assessment of stenosis of the internal carotid arteries is based on NASCET criteria. ACT 112: Negative or not required by law. Electronically signed by: Vinod Wyman M.D. 01/23/2023 3:39 PM Neck CTA 01/23/23 15:11 CT angio neck with con, CT head/brain wo con, CT angio head w con CLINICAL HISTORY: neuro deficit, acute stroke suspected TECHNIQUE: Contiguous axial CT images of the head were acquired from the base of the skull to the vertex without intravenous contrast administration. CT angiography of the head and neck was performed following intravenous administration of iodinated contrast. Coronal and sagittal MIPS were obtained from the axial data set and were submitted for review. Automated dose lowering techniques and/or adjustment according to patient size were utilized for this examination. All measurements were calculated based on NASCET criteria. CT DOSE: 1296.86 mGy.cm Comparison: None available at the time of this dictation. FINDINGS: CT head: Areas of decreased attenuation are present in the periventricular and subcortical white matter bilaterally consistent with small vessel ischemic disease. Generalized cerebral atrophy with commensurate enlargement of the ventricles, sulci, and cisterns is also present. There is no acute intracranial hemorrhage or evidence of acute territorial infarction. No shift of the midline structures, mass effect, or extra-axial abnormalities are shown. Atherosclerotic calcifications are present in the intracranial segments of the internal carotid arteries. Biapical emphysema is seen. Multiple thyroid nodules are seen. CTA Neck: A 3 vessel aortic arch is shown. There is no significant atherosclerotic plaque in the aortic arch or the origins of the innominate, left common carotid, and left subclavian arteries. There is mild calcified atherosclerotic plaque at the bifurcation of the bilateral common carotid arteries without hemodynamically significant flow stenosis. There is no dissection present. The left vertebral artery is dominant. CTA Head: The anterior and posterior cerebral circulations are patent. Atherosclerotic disease is noted. IMPRESSION: 1. No acute intracranial hemorrhage, evidence of acute territorial infarction, or other acute intracranial disease process. 2. No occlusion, hemodynamically significant stenosis, or dissection in the major cervical arteries. 3. No occlusion, hemodynamically significant stenosis, aneurysm, dissection, or arteriovenous malformation in the major intracranial arteries. Assessment of stenosis of the internal carotid arteries is based on NASCET criteria. ACT 112: Negative or not required by law. Electronically signed by: Vinod Wyman M.D. 01/23/2023 3:[address] 01/24/23 08:00 CT OF THE HEAD WITHOUT CONTRAST CLINICAL HISTORY: Aphasia. COMPARISON STUDY: Head CT, CTA of the head and MRI of the brain January 23, 2023. CT DOSE: 625.80 mGy.cm TECHNIQUE: Helical axial images of the head were obtained without IV contrast. Automated exposure control was utilized for the study. A dose lowering technique was utilized adhering to the principles of ALARA. FINDINGS: No acute intracranial hemorrhage is present. Ventricular system is unremarkable. Basal cisterns are patent. There are no findings to suggest acute dural sinus thrombosis or acute territorial infarct. There is equivocal sulcal effacement within the anterior left frontal lobe shown best on axial image of . This was not clearly evident on prior CT or MRI. This may be artifactual. There are no significant calvarial abnormalities. IMPRESSION: 1. No acute intracranial hemorrhage. 2. Apparent sulcal effacement within the anterior left frontal lobe, not clearly evident on prior CT or MRI. This may be artifactual however a follow-up MRI of the brain with and without contrast is recommended for further evaluation. ACT 112: Negative or not required by law. Electronically signed by: Matthew Ferreira M.D. 01/24/2023 8:55 AM Brain MRI 01/24/23 09:51 MRI OF THE BRAIN WITHOUT IV CONTRAST CLINICAL HISTORY: Change in mental status. Aphasia. COMPARISON STUDY: MRI of the brain dated 12/27/2022. CT of the brain dated 01/24/2023. TECHNIQUE: MRI of the brain was performed utilizing various T1 and T2-weighted sequences in the axial and sagittal planes. IV contrast was not administered for this examination. The examination is severely degraded by motion artifact. This degrades diagnostic utility. Coronal FLAIR imaging and postcontrast imaging could not be performed FINDINGS: Brain parenchyma: There is age-related involutional change noting moderate to advanced subcortical and periventricular microangiopathic and hepatic disease. There is no evidence of hemorrhage or mass effect. There are small foci of restricted diffusion seen along the high left frontal convexity on axial image #24, which is new from yesterday. This measures up to 1.1 cm in aggregate dimension, and it is unclear if this involves the cortex of the extra-axial space. There is apparent extra-axial soft tissue thickening in this region suggested on sagittal image #14. No additional foci of restricted diffusion are identified. The cerebellar tonsils are normal in configuration. Ventricles, sulci, and cisterns: Prominent secondary to involutional change. Pituitary and sella: Unremarkable. Intracranial vasculature: Normal flow voids are maintained at the skull base. Orbits: The bony orbits are grossly intact. Orbital contents are normal in appearance. Sinuses and mastoids: Grossly clear. Calvarium: Unremarkable. Cervical cord: Partially visualized cervical spinal cord is normal in morphology and signal intensity. IMPRESSION: 1. Incomplete and severely motion compromises examination. This degrades diagnostic utility. 2. There are small foci of restricted diffusion identified on the high left anterior frontal convexity. This is new from yesterday, and it is unclear if this involves the cortex or the extra-axial space. There is also apparent extra- axial soft tissue thickening suggested at this site. Differential considerations include a focus of acute to subacute ischemia or possibly infection. A lumbar puncture is recommended for further evaluation. 3. No additional foci of restricted diffusion are identified. There is no evidence of hemorrhage or mass effect. ACT 112: Negative or not required by law. Electronically signed by: Yunier Ledesma M.D. 01/24/2023 12:59 PM Lumbar Puncture 01/25/23 07:39 Lumbar puncture under fluoroscopy INDICATION: Altered mental status; evaluate for meningitis PROCEDURE: Procedure and risks were explained. Informed consent was obtained over the phone. Final timeout was completed. The patient was placed prone on the fluoroscopic exam table. The lower lumbar region was prepped and draped in sterile fashion. 1% lidocaine was utilized for skin anesthesia. Utilizing fluoroscopic guidance, a 22-gauge needle was advanced into the intrathecal space at the L2-3 disc space level. 2 permanent spot images were obtained. Approximately 8 mL of clear CSF fluid was removed and sent to the lab. The needle was removed and Band-Aid applied. The patient tolerated the procedure well. Vital signs will be monitored postprocedure. Total fluoroscopy time 31 seconds. DAP is 7.58 mcGy/m2. IMPRESSION: Lumbar puncture as above. Performed, dictated, and signed by Ulises Figueredo PA-C; to be co-signed by Dr. Matthew Ferreira. Electronically signed by: Matthew Ferreira M.D. 01/25/2023 1:09 PM 01/23/23 15:11 CT angio head w con Stat CT angio neck with con Stat CT head/brain wo con Stat 01/23/23 16:08 MRI Brain [MR brain wo con] Stat 01/24/23 08:[address] [CT head/brain wo con] DAILY 01/24/23 09:51 MR brain wo con Stat 01/25/23 07:39 IR lumbar puncture diagnostic Urgent Pending Results Patient Have Any Pending Studies at Discharge: No Discharge Instructions Given to Patient (Per Discharging Provider) PLEASE REFER TO ACCOMPANYING HOSPITAL DISCHARGE. Total Time Total Time Spent Total Time Spent (In Minutes): >30 minutes
[2023-02-01 22:37] LABS: Albumin 2.4 g/dL (3.6-5.1); Albumin, CSF 44.9 mg/dL (8.0-42.0); IgG Index, CSF 0.52 (<0.70); IgG Serum 1660 mg/dL (600-1540); Lyme IgG Band Pattern CSF DNR; Lyme IgG CSF NO BANDS DETECTED; Lyme IgM Band Pattern CSF DNR; Lyme IgM CSF NO BANDS DETECTED; Myelin Basic Protein <2.0 mcg/L (<=4.0); Oligoclonal Bands IgG, CSF Absent (Absent); Synthesis Rate, IgG CSF 6.3 mg/24 h (-9.9-3.3)
[2023-02-06 02:07] LABS: ANCA Screen Negative (Negative); Angiotensin Converting Enzyme 16 U/L (9-67); Anti Nuclear Antibody Screen NEGATIVE (NEGATIVE); Anti-SS-A <1.0 NEG AI (<1.0 NEG); Anti-SS-B <1.0 NEG AI (<1.0 NEG); Rheumatoid Factor >1000 IU/mL (<14)
== END 2023-02-01 15:52 | DRG 97 ==
LOC: ED 15:02 → SUATTDRO 17:35 → 2S 17:35

== ENCOUNTER 2025-01-06 18:06 | Inpatient (IN) ==
--- NOTE | 2025-01-06 18:28 | Emergency Department Note ---
ED Visit Note I was consulted by the Advanced Practice Provider Rhys Donato PA-C. I performed a substantive portion of the visit including all aspects of medical decision making. .
--- NOTE | 2025-01-06 18:54 | Emergency Department Note ---
History of Present Illness General Chief complaint: Back Injury/Pain Stated complaint: BACK PAIN Time Seen by Provider: 01/06/25 18:20 History of Present Illness Maximum Pain Intensity: 6 This is an 79-year-old male that presents to the emergency department via EMS with complaints of "right hip pain". The patient notes history of RA x 25 years. He states that this has led to some chronic pain in his right hip. However this acutely worsened over the past few days. No trauma. No injury. He notes at times the right hip pain radiates down the right leg and into the right back. No fevers or chills. No nausea or vomiting. No chest pain or shortness of breath. No abdominal pain. Patient denies any anticoagulant use. He notes he stopped his anticoagulant several months ago on his own. No bleeding disorders. No blood in the stool or urine. Pain in the right hip is worse with movement and mildly better with rest. He has tried OTC analgesia such as ibuprofen and acetaminophen with no relief. Patient notes that his son called EMS today. He states that his son lives in [place] and is in the process of arranging the patient to move closer to the [place] area and likely receive full-time care. At the present time patient lives by himself in a townhouse. He notes that he must go up a flight of steps to reach the bedroom which is quite challenging. He has been using a walker full-time now for ambulation. Home Medications Medication Instructions Recorded Confirmed Type cyanocobalamin (vitamin B-12) 1,000 mcg IM MONTHLY 01/23/23 01/06/25 History 1,000 mcg/mL injection solution amlodipine 2.5 mg-benazepril 10 mg 1 cap PO QAM 09/01/23 01/06/25 History capsule cholecalciferol (vitamin D3) 50 25 mcg PO .EVERY 2-3 DAYS 09/01/23 01/06/25 History mcg (2,000 unit) capsule (Vitamin D3) fluticasone 250 mcg-salmeterol 50 1 inh inhalation AMHS 01/06/25 01/06/25 History mcg/dose blistr powdr for inhalation folic acid 1 mg tablet 1 mg PO QAM 01/06/25 01/06/25 History prednisone 10 mg tablet 15 mg PO DAILY PRN RA FLARES 08/13/25 08/13/25 History Allergies Allergy/AdvReac Type Severity Reaction Status Date / Time No Known Allergies Allergy Verified 01/06/25 19:43 Past Med/Surg History Problem List (Updated 01/06/25 @ 19:33 by Rhys Donato PA-C) Ambulatory dysfunction (Acute) Hip pain, right (Acute) H/O stroke without residual deficits Mild cognitive impairment Paroxysmal atrial fibrillation Stroke Cerebritis Sinus bradycardia COPD (chronic obstructive pulmonary disease) with emphysema Bronchiectasis Abnormal CT of brain Fever of unknown origin Mixed aphasia Rheumatoid arthritis HTN (hypertension) Altered mental status (Acute) Fracture of proximal phalanx of left little finger Fracture of fourth metacarpal bone Fracture of third metacarpal bone Closed traumatic dislocation of proximal interphalangeal (PIP) joint of left middle finger Medical History Fever of unknown origin Rheumatoid arthritis HTN (hypertension) Spinal stenosis Pernicious anemia Surgical History No pertinent past surgical history Social History Smoking Status: Never smoker Tobacco Type: Cigarettes Second Hand Exposure: No; Do You Dip or Chew Tobacco: No; Hx Alcohol Use: No Hx Substance Use: No Preferred Language: Yoruba Communication Ability: Unable 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 Beliefs That Will Affect Care: None Current Living Situation: Alone Other Information That Helps Us Care for You: No Feels Safe at Home: Yes Safety Concerns: Feels Safe At This Time Assistive Devices: Denture - Upper, Denture - Lower, Glasses, Hospital Bed and Walker Review of Systems A total of 10 systems reviewed and were otherwise negative Physical Exam Vital Signs Vital Signs - 24 hr 01/06/25 18:13 Temperature 37.0 C Temperature Source Temporal Artery Scan Pulse Rate 68 Respiratory Rate 18 Blood Pressure 140/80 Blood Pressure Mean 100 Pulse Oximetry 96 Oxygen Delivery Method Room Air Sepsis New/Unexplained Change in Mental Status No Sepsis Action Taken by Nursing No Action Required VITAL SIGNS - Vital signs and nursing notes were reviewed. Stable and afebrile. GENERAL - 79-year-old male appearing his stated age who is in no acute distress. Communicates well with provider and answers questions appropriately. SKIN - Without rashes. The skin overlying the right hip is unremarkable. No erythema or edema. No break in the integument. No ecchymosis. HEAD - NC/AT. NECK - No nuchal rigidity. LUNGS - CTA CARDIAC - RRR ABDOMEN - Abdominal contour normal without pulsations or visible masses. BS normoactive all four quadrants. No tenderness, palpable masses, hepatosplenomegaly, or ascites noted. EXTREMITIES - No clubbing or peripheral cyanosis. +5/5 strength noted in UE/LE bilaterally. Point tenderness to the right lateral hip area overlying the greater trochanter. MSKthere is no reproducible tenderness overlying the L-spine with palpation NEUROLOGIC - Cranial nerves II through XII grossly intact. PSYCH -alert, oriented and pleasant on exam. Course Administered Medications Zinc Acetate/Diphenhydramine (Diphenhydramine 2%/Zinc 0.1% Cream 28.4gm Tube) 1 appln EXT QID PRN PRN Reason: itchy skin Stop: 02/05/25 23:48 Last Admin: 01/07/25 00:26 Dose: 1 appln Documented By: LAZ Discontinued Medications Lidocaine (Lidocaine 5% 1 Patch) 1 patch TD NOW STA Stop: 01/06/25 18:54 Last Admin: 01/06/25 19:20 Dose: 1 patch Documented By: BELL Miscellaneous (Remove Lidoderm Patch) 1 each N/A DAILY@2100 EBENEZER Stop: 01/06/25 23:59 Last Admin: 01/06/25 23:50 Dose: Not Given Documented By: LAZ Oxycodone HCl (Oxycodone Hcl Ir 5 Mg Tab (Immediate Release)) 5 mg PO NOW STA Stop: 01/06/25 20:57 Last Admin: 01/06/25 21:36 Dose: 5 mg Documented By: JHONATAN Medical Decision Making Laboratory Data 01/06/25 18:40 01/06/25 18:40 Lab Results 01/06/25 Range/Units 18:40 WBC 8.94 (4.8-10.8) K/ul RBC 4.98 (4.70-6.10) M/uL Hgb 15.7 (14.0-18.0) g/dl Hct 47.0 (42.0-52.0) % MCV 94.4 (80.0-100.0) fL MCH 31.5 (25.0-34.0) pg MCHC 33.4 (32.0-36.0) g/dL RDW Std Deviation 51.3 H (36.4-46.3) fL RDW Coeff of Clint 14.7 H (11.5-14.5) % Plt Count 244 (130-400) K/uL MPV 9.7 (9.4-12.4) fL Immature Gran % (Auto) 0.8 % Neut % (Auto) 82.4 % Lymph % (Auto) 9.1 % [place] % (Auto) 6.0 % Eos % (Auto) 1.3 % Baso % (Auto) 0.4 % Neut # (Auto) 7.36 H (1.40-6.50) K/uL Lymph # (Auto) 0.81 L (1.20-3.40) K/uL [place] # (Auto) 0.54 (0.11-0.59) K/uL Eos # (Auto) 0.12 (0.00-0.50) K/uL Baso # (Auto) 0.04 (0.00-0.20) K/uL Immature Gran # (Auto) 0.07 (0.01-0.20) K/uL PT 11.3 (9.0-12.0) Seconds INR 1.0 (0.9-1.1) APTT 29 (21-31) Seconds PTT Ratio 1.1 Sodium 136 (136-145) mmol/L Potassium 4.2 (3.5-5.1) mmol/L Chloride 104 (98-107) mmol/L Carbon Dioxide 26 (21-32) mmol/L Anion Gap 6 (3-11) BUN 20 (6-23) mg/dl Creatinine 1.18 (0.6-1.4) mg/dl Est Cr Clr Drug Dosing Not Reportable eGFR 61.99 BUN/Creatinine Ratio 16.9 (10-20) Glucose 83 (70-99(Fasting)) mg/dl Calcium 8.9 (8.6-10.3) mg/dl Total Bilirubin 0.9 (0.2-1.0) mg/dl AST 12 L (13-39) U/L ALT 8 (7-52) U/L Alkaline Phosphatase 61 (34-104) U/L Total Protein 6.3 (6.0-8.3) gm/dl Albumin 2.9 L (3.4-5.0) gm/dl Globulin 3.4 (2.5-4.0) gm/dl Albumin/Globulin Ratio 0.9 (0.9-2) Imaging Data Radiologist's Impression: Femur X-Ray 01/06/25 18:48 2 views right femur No comparison Impression: Advanced degenerative changes of the right hip with flattening of the weightbearing articular surface of the femoral head. Soft tissue density seen within the right hip joint space suggesting an effusion within same. No acute osseous pathology. Electronically signed by Jose Alejandro Lockwood 01-06-2025 8:16 PM Pelvis X-Ray 01/06/25 18:48 Single frontal view of the pelvis No comparison Impression No acute fracture dislocations. Advanced degenerative changes of the right hip. Moderate left hip osteoarthritis Electronically signed by Jose Alejandro Lockwood 01-06-2025 8:11 PM Lumbar Spine X-Ray 01/06/25 18:49 5 images of the lumbar spine No comparison Impression No acute osseous pathology. Multilevel degenerative changes of the lumbar spine with interspace narrowing at essentially every level. Electronically signed by Jose Alejandro Lockwood 01-06-2025 8:16 PM MDM Narrative Patient was seen and evaluated as above in room D03b. Review was performed of triage nursing notes and vital signs. After obtaining a thorough history and physical examination the above work up was performed. Patient presents for evaluation of atraumatic right hip pain that acutely worsened over the past few days but has been ongoing chronically. He presents today via EMS. He is tender in the right lateral hip on examination. No neurovascular deficits. Vital signs stable. Options of care were discussed with the patient. IV access was established. Labs were drawn. I discussed analgesic options with the patient. We agreed to trial lidocaine patch. X-rays of the L-spine, pelvis/right hip and femur were obtained. No definite fracture seen. There is no leukocytosis or concerning anemia. No emergent metabolic disturbance. I am concerned about the patient's safety at home noting challenging ambulation/ambulatory dysfunction. I do believe that further evaluation and management in the inpatient setting is warranted. Patient in agreement. Case discussed with the hospitalist service. Please refer to further documentation regarding his stay. GCS: 15 In the evaluation and treatment of this patient the following differential diagnoses were entertained: Fracture, dislocation, subluxation, contusion, sprain, strain, among others. Impression & Plan Hip pain, right, Ambulatory dysfunction Discharge Plan Visit Data Chief Complaint: Back Injury/Pain Stated Complaint: BACK PAIN ED Provider: Gavin Lim ED Midlevel Provider: Rhys Donato Discharge Problem: Hip pain, right, Ambulatory dysfunction Patient Disposition: Admitted As Inpatient Condition: Good Discharge Instructions Interventions: ED Discharge Assessment Last Done: 01/06/25 21:50
[2025-01-06 18:55] LABS: Hematocrit (blood only) 47.0 % (42.0-52.0); Hemoglobin 15.7 g/dl (14.0-18.0); Immature Granulocytes # (auto) 0.07 K/uL (0.01-0.20); Immature Granulocytes % (auto) 0.8 %; Mean Corpuscular Hemoglobin 31.5 pg (25.0-34.0); Mean Corpuscular Volume 94.4 fL (80.0-100.0); Platelet Count 244 K/uL (130-400); RDW Standard Deviation 51.3 fL (36.4-46.3); Red Blood Count 4.98 M/uL (4.70-6.10); White Blood Count 8.94 K/ul (4.8-10.8)
[2025-01-06 19:13] LABS: Alanine Aminotransferase 8 U/L (7-52); Albumin Globulin Ratio 0.9 (0.9-2); Alkaline Phosphatase 61 U/L (34-104); Anion Gap 6 (3-11); Bilirubin,Total 0.9 mg/dl (0.2-1.0); Blood Urea Nitrogen 20 mg/dl (6-23); Calcium 8.9 mg/dl (8.6-10.3); Carbon Dioxide 26 mmol/L (21-32); Chloride 104 mmol/L (98-107); Globulin 3.4 gm/dl (2.5-4.0); Glucose 83 mg/dl (70-99(Fasting)); Potassium 4.2 mmol/L (3.5-5.1); Sodium 136 mmol/L (136-145); Total Protein 6.3 gm/dl (6.0-8.3)
[2025-01-06] MEDS: LIDOCAINE 5% 1 PATCH TD STA (19:20)
[2025-01-06] MEDS ORDERED: ACETAMINOPHEN 325 MG TAB PO PRN (19:37)
[2025-01-06 19:38] LABS: INR 1.0 (0.9-1.1); Partial Thromboplastin Time 29 Seconds (21-31); Prothrombin Time 11.3 Seconds (9.0-12.0)
--- NOTE | 2025-01-06 20:11 | XRay Report ---
Single frontal view of the pelvis No comparison Impression No acute fracture dislocations. Advanced degenerative changes of the right hip. Moderate left hip osteoarthritis Electronically signed by Jose Alejandro Lockwood 01-06-2025 8:11 PM
--- NOTE | 2025-01-06 20:17 | XRay Report ---
5 images of the lumbar spine No comparison Impression No acute osseous pathology. Multilevel degenerative changes of the lumbar spine with interspace narrowing at essentially every level. Electronically signed by Jose Alejandro Lockwood 01-06-2025 8:16 PM
--- NOTE | 2025-01-06 20:17 | XRay Report ---
2 views right femur No comparison Impression: Advanced degenerative changes of the right hip with flattening of the weightbearing articular surface of the femoral head. Soft tissue density seen within the right hip joint space suggesting an effusion within same. No acute osseous pathology. Electronically signed by Jose Alejandro Lockwood 01-06-2025 8:16 PM
--- NOTE | 2025-01-06 20:22 | History & Physical Report ---
Date of Service January 06, 2025 Assessment & Plan (1) Hip pain, right: Plan: Assessment and plan below following discussion of case with ED provider and reviewing patient history/pertinent normal/abnormal diagnostic test results. Worsening right hip pain History right hip osteoarthritis hypertension, stable PAF off anticoagulation due to patient preference hx PVD CVA COPD, chronic cough symptoms steroid-dependent rheumatoid arthritis mild cognitive impairment as per records, patient mentating well past tobacco abuse Admit to MedSurg Analgesia Orthopedics consult re: worsening right hip pain PT OT eval Social service re: placement DVT prophylaxis. SCDs re: possible procedure DNR as per patient directives. Patient requests for son to be given updates regarding care. Mr. Arsh Garcia, contact #[phone]. Text document was generated using Rico voice recognition software. It may contain grammatical or spelling errors. Kindly contact undersigned for clarification of any documentation item in question. History of Present Illness Chief Complaint: Worsening right hip pain Primary Care Provider: William Joseph MD History obtained from patient and records. Medical history significant for hypertension, hyperlipidemia, PAF off anticoagulation due to patient preference, PVD, CVA, COPD, steroid-dependent rheumatoid arthritis, bilateral hip osteoarthritis, MGUS, mild cognitive impairment as per records, mood disorder, past tobacco abuse. 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 Patient has chronic right hip pain attributed to advanced osteoarthritis for a number of years now. Patient noted worsening right hip pain especially on ambulation and standing up over the last few days. No trauma. No chest pain, no SOB. Trouble ambulating at home. Patient family currently looking for possible placement at a nursing facility close to [place] where family resides. Patient increasingly unable to care for self at home due to disability from arthritis. 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 Allergies Allergy/AdvReac Type Severity Reaction Status Date / Time No Known Allergies Allergy Verified 01/06/25 19:43 Home Medications Medication Instructions Recorded Confirmed Type cyanocobalamin (vitamin B-12) 1,000 mcg IM MONTHLY 01/23/23 01/06/25 History 1,000 mcg/mL injection solution amlodipine 2.5 mg-benazepril 10 mg 1 cap PO QAM 09/01/23 01/06/25 History capsule cholecalciferol (vitamin D3) 50 25 mcg PO .EVERY 2-3 DAYS 09/01/23 01/06/25 History mcg (2,000 unit) capsule (Vitamin D3) fluticasone 250 mcg-salmeterol 50 1 inh inhalation AMHS 01/06/25 01/06/25 History mcg/dose blistr powdr for inhalation folic acid 1 mg tablet 1 mg PO QAM 01/06/25 01/06/25 History prednisone 10 mg tablet 15 mg PO DAILY PRN RA FLARES 01/06/25 01/06/25 History Past Med/Surg History Problem List (Updated 01/06/25 @ 19:33 by Rhys Donato PA-C) Ambulatory dysfunction (Acute) Hip pain, right (Acute) H/O stroke without residual deficits Mild cognitive impairment Paroxysmal atrial fibrillation Stroke Cerebritis Sinus bradycardia COPD (chronic obstructive pulmonary disease) with emphysema Bronchiectasis Abnormal CT of brain Fever of unknown origin Mixed aphasia Rheumatoid arthritis HTN (hypertension) Altered mental status (Acute) Fracture of proximal phalanx of left little finger Fracture of fourth metacarpal bone Fracture of third metacarpal bone Closed traumatic dislocation of proximal interphalangeal (PIP) joint of left middle finger Medical History Fever of unknown origin Rheumatoid arthritis HTN (hypertension) Spinal stenosis Pernicious anemia Surgical History No pertinent past surgical history Social History Smoking Status: Never smoker Tobacco Type: Cigarettes Second Hand Exposure: No; Do You Dip or Chew Tobacco: No; Hx Alcohol Use: No Hx Substance Use: No Preferred Language: Maltese Communication Ability: Unable Lead Welder Required: No Beliefs That Will Affect Care: None Current Living Situation: Alone Other Information That Helps Us Care for You: No Feels Safe at Home: Yes Safety Concerns: Feels Safe At This Time Assistive Devices: Denture - Upper, Denture - Lower, Glasses, Hospital Bed and Walker Review of Systems Review of Systems: As per HPI, all other systems reviewed and negative Physical Exam Physical Exam: GENERAL: Slightly uncomfortable, pleasant, no respiratory distress SKIN: Normal color, warm HEENT: Partial alopecia, bespectacled, pink palpebral conjunctivae, no ptosis, moist buccal mucosa NECK : Supple, no tenderness CHEST : Decreased breath sounds, no tenderness HEART : RRR, no obvious murmurs ABDOMEN: no distention, nontender EXTREMITIES : No LE swelling, right hip tenderness, chronic bilateral hand deviation, palpable pulses, no other conspicuous deformities noted NEUROLOGIC : Coherent, no facial asymmetry, no other gross focality Results & Data Results & Data Vital Signs (Past 12 Hours) Vital Signs Temp Pulse Resp BP Pulse Ox O2 Del Method 01/06/25 18:13 37.0 C 68 18 140/80 96 Room Air Laboratory Results Laboratory Results WBC 8.94 K/ul (4.8-10.8) 01/06/25 18:40 RBC 4.98 M/uL (4.70-6.10) 01/06/25 18:40 Hgb 15.7 g/dl (14.0-18.0) 01/06/25 18:40 Hct 47.0 % (42.0-52.0) 01/06/25 18:40 MCV 94.4 fL (80.0-100.0) 01/06/25 18:40 MCH 31.5 pg (25.0-34.0) 01/06/25 18:40 MCHC 33.4 g/dL (32.0-36.0) 01/06/25 18:40 RDW Std Deviation 51.3 fL (36.4-46.3) H 01/06/25 18:40 RDW Coeff of Clint 14.7 % (11.5-14.5) H 01/06/25 18:40 Plt Count 244 K/uL (130-400) 01/06/25 18:40 MPV 9.7 fL (9.4-12.4) 01/06/25 18:40 Immature Gran % (Auto) 0.8 % 01/06/25 18:40 Neut % (Auto) 82.4 % 01/06/25 18:40 Lymph % (Auto) 9.1 % 01/06/25 18:40 [place] % (Auto) 6.0 % 01/06/25 18:40 Eos % (Auto) 1.3 % 01/06/25 18:40 Baso % (Auto) 0.4 % 01/06/25 18:40 Neut # (Auto) 7.36 K/uL (1.40-6.50) H 01/06/25 18:40 Lymph # (Auto) 0.81 K/uL (1.20-3.40) L 01/06/25 18:40 [place] # (Auto) 0.54 K/uL (0.11-0.59) 01/06/25 18:40 Eos # (Auto) 0.12 K/uL (0.00-0.50) 01/06/25 18:40 Baso # (Auto) 0.04 K/uL (0.00-0.20) 01/06/25 18:40 Immature Gran # (Auto) 0.07 K/uL (0.01-0.20) 01/06/25 18:40 PT 11.3 Seconds (9.0-12.0) 01/06/25 18:40 INR 1.0 (0.9-1.1) 01/06/25 18:40 APTT 29 Seconds (21-31) 01/06/25 18:40 PTT Ratio 1.1 01/06/25 18:40 Sodium 136 mmol/L (136-145) 01/06/25 18:40 Potassium 4.2 mmol/L (3.5-5.1) 01/06/25 18:40 Chloride 104 mmol/L (98-107) 01/06/25 18:40 Carbon Dioxide 26 mmol/L (21-32) 01/06/25 18:40 Anion Gap 6 (3-11) 01/06/25 18:40 BUN 20 mg/dl (6-23) 01/06/25 18:40 Creatinine 1.18 mg/dl (0.6-1.4) 01/06/25 18:40 Est Cr Clr Drug Dosing Not Reportable 01/06/25 18:40 eGFR 61.99 01/06/25 18:40 BUN/Creatinine Ratio 16.9 (10-20) 01/06/25 18:40 Glucose 83 mg/dl (70-99(Fasting)) 01/06/25 18:40 Calcium 8.9 mg/dl (8.6-10.3) 01/06/25 18:40 Total Bilirubin 0.9 mg/dl (0.2-1.0) 01/06/25 18:40 AST 12 U/L (13-39) L 01/06/25 18:40 ALT 8 U/L (7-52) 01/06/25 18:40 Alkaline Phosphatase 61 U/L (34-104) 01/06/25 18:40 Total Protein 6.3 gm/dl (6.0-8.3) 01/06/25 18:40 Albumin 2.9 gm/dl (3.4-5.0) L 01/06/25 18:40 Globulin 3.4 gm/dl (2.5-4.0) 01/06/25 18:40 Albumin/Globulin Ratio 0.9 (0.9-2) 01/06/25 18:40 Impressions Femur X-Ray 01/06/25 18:48 2 views right femur No comparison Impression: Advanced degenerative changes of the right hip with flattening of the weightbearing articular surface of the femoral head. Soft tissue density seen within the right hip joint space suggesting an effusion within same. No acute osseous pathology. Electronically signed by Jose Alejandro Lockwood 01-06-2025 8:16 PM Pelvis X-Ray 01/06/25 18:48 Single frontal view of the pelvis No comparison Impression No acute fracture dislocations. Advanced degenerative changes of the right hip. Moderate left hip osteoarthritis Electronically signed by Jose Alejandro Lockwood 01-06-2025 8:11 PM Lumbar Spine X-Ray 01/06/25 18:49 5 images of the lumbar spine No comparison Impression No acute osseous pathology. Multilevel degenerative changes of the lumbar spine with interspace narrowing at essentially every level. Electronically signed by Jose Alejandro Lockwood 01-06-2025 8:16 PM
[2025-01-06] MEDS: REMOVE LIDODERM PATCH SCH (23:50)
[2025-01-07] MEDS: diphenhydrAMINE 2%/ZINC 0.1% CREAM 28.4GM TUBE EXT PRN (00:26)
--- NOTE | 2025-01-07 08:13 | Orthopedic Consultation ---
Date of Consultation January 07, 2025 Assessment & Plan (1) Rheumatoid arthritis flare: The patient was educated regarding today's findings. Conservative care measures were discussed. The patient's symptoms are more lateral than typically seen in femoral acetabular arthritis. His pain is well-controlled with 1 tablet of oxycodone 5 mg. He is currently back at baseline according to the patient. He may benefit from a corticosteroid injection in the hip under ultrasound guidance. This can be arranged through the office as an outpatient once his disposition for placement is known. He is already taking prednisone 15 mg daily. Surgical intervention for his hip would require an advanced procedure including reconstruction of his acetabulum and use of a specialized cup. This would need to be done at a tertiary care center. In discussion with the patient, he would like to avoid surgery if pos sible. He will likely require extended physical therapy to assist with ambulation and strength. He would be a good candidate for a rehab hospital such as [facility]. The patient may require periodic narcotic administration to assist with his rheumatoid flares. He received oxycodone here and has done well with it. The patient states he does not want to be on chronic narcotics and that they scare him. He was reassured that I am not recommending chronic narcotic administration, but periodic rescue for flares, to avoid hospital admission. May benefit from referral to [facility] sports medicine for ultrasound evaluation and possible cortisone injection as an outpatient. He verbalized understanding. The patient was seen in conjunction with Dr. Lopez, who also evaluated the patient and concurred with today's diagnosis and treatment plan. Supervising Physician Co-Signing Physician Notes I, Dr. Lopez, saw and examined the patient with my PA. I discussed the management with my PA. I reviewed my PAs note and agree with the documented findings and attest to completing the substantive portion of medical decision making and plan of care I developed. History of Present Illness Reason for Consultation: Right hip and back pain Requesting Physician: Jaja Lopez MD Attending Physician: Sahil Cope MD History of Present Illness This 79-year-old male presented to the emergency department via EMS with complaints of "right hip pain". He was admitted to the hospitalist service and orthopedics was consulted. The patient notes history of RA x 25 years. He states that this has led to some chronic pain in his right hip. However this acutely worsened over the past few days. No trauma. No injury. He did not fall. He notes at times the right hip pain radiates down the right leg and into the right back. No fevers or chills. No nausea or vomiting. No chest pain or shortness of breath. No abdominal pain. Patient denies any anticoagulant use. He notes he stopped his anticoagulant several months ago on his own. Pain in the right hip is worse with movement and better with rest. He tried OTC analgesia such as ibuprofen and acetaminophen with no relief. He states that his son lives in [place] and is in the process of arranging the patient to move closer to the [place] area and likely receive full-time care. At the present time patient lives by himself in a townhouse. He notes that he must go up a flight of steps to reach the bedroom which is quite challenging. He has been using a walker full-time now for about a year for ambulation. He is currently laying in bed and states he is back to baseline after receiving a "little bitter pill". Review of records shows that he received oxycodone 5 mg. Allergies Allergy/AdvReac Type Severity Reaction Status Date / Time No Known Allergies Allergy Verified 01/06/25 19:43 Home Medications Medication Instructions Recorded Confirmed Type cyanocobalamin (vitamin B-12) 1,000 mcg IM MONTHLY 01/23/23 01/06/25 History 1,000 mcg/mL injection solution amlodipine 2.5 mg-benazepril 10 mg 1 cap PO QAM 09/01/23 01/06/25 History capsule cholecalciferol (vitamin D3) 50 25 mcg PO .EVERY 2-3 DAYS 09/01/23 01/06/25 History mcg (2,000 unit) capsule (Vitamin D3) fluticasone 250 mcg-salmeterol 50 1 inh inhalation [facility] 01/06/25 01/06/25 History mcg/dose blistr powdr for inhalation folic acid 1 mg tablet 1 mg PO QAM 01/06/25 01/06/25 History prednisone 10 mg tablet 15 mg PO DAILY PRN RA FLARES 01/06/25 01/06/25 History Patient History Medical History (Updated 01/07/25 @ 08:07 by John Mahan PA-C) History of stroke Rheumatoid arthritis Spinal stenosis Pernicious anemia Surgical History No pertinent past surgical history Family History (Updated 01/07/25 @ 08:02 by John Mahan PA-C) Other No pertinent family history Social History Smoking Status: Never smoker Tobacco Type: Cigarettes Second Hand Exposure: No; Do You Dip or Chew Tobacco: No; Hx Alcohol Use: No Hx Substance Use: No Preferred Language: Ug[place]an Communication Ability: Effective Editorial Intern Required: No Beliefs That Will Affect Care: None Current Living Situation: Alone Other Information That Helps Us Care for You: No Feels Safe at Home: Yes Safety Concerns: Feels Safe At This Time Assistive Devices: Walker Review of Systems Review of Systems: All systems reviewed & are unremarkable except as noted in HPI & below Physical Exam Physical Exam: General: Frail, elderly white male, in no acute distress. Laying in bed. Alert and oriented. Conversive. Skin: Warm and dry with fair turgor. Numerous ecchymotic spots from IV insertion and minor contusions. No intra-articular effusion is noted at the knees or hips. Musculoskeletal: Right hip evaluation reveals no obvious asymmetry or deformity. The patient points to the greater trochanter and the buttock as the area of discomfort. He has mild discomfort with palpation at this time. He has supple motion of his hip with palpable crepitus. No pain with logrolling. No pain with hip flexion. Initial presentation was him lying flat with his hip flexed at approximately 70 degrees. He is able to fully extend. He is unable to do a straight leg raise without mild assistance. No increase in back pain with straight leg raise. There is no inguinal pain with palpation at this time. Intact motor function to the ankle and toes. Neurologic: Gross sensation is intact across the dermatomes of the right leg by soft touch. He notes mild decreased sensation in the foot consistent with his chronic neuropathy. Peripheral pulses are 2+. Results & Data Vital Signs (Past 12 Hours) Vital Signs Temp Pulse Resp BP BP Pulse Ox O2 Del Method 01/06/25 23:25 37.3 C 80 16 154/89 H 94 Room Air 01/06/25 22:30 78 16 134/76 95 Room Air 01/06/25 20:25 72 18 131/77 96 Room Air Diagnostic Findings Radiographic imaging obtained last evening in the ED shows end-stage DDD of the right hip. 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 Soft tissue edema is noted on the film. No evidence of fracture.
[2025-01-07] MEDS: CYANOCOBALAMIN 1000 MCG/ML VIAL IM SCH (09:20)
[2025-01-07] MEDS: CHOLECALCIFEROL 25 MCG (1000 UNITS) TAB PO SCH (09:20)
[2025-01-07] MEDS: FLUTICASONE/VILANTEROL 200/25MCG 14 PUFFS/INHALER INH SCH (09:21)
[2025-01-07] MEDS: ENALAPRIL MALEATE 5 MG TAB PO SCH (09:21)
[2025-01-07] MEDS: FOLIC ACID 1 MG TAB PO SCH (09:21)
--- NOTE | 2025-01-07 11:06 | Hospitalist Progress Note ---
Date of Service January 07, 2025 Assessment & Plan (1) Hip pain, right: Plan: Advanced R hip osteoarthritis likely causing hip pain Rheumatoid arthritis flareup Patient presented to the hospital with worsening right hip pain X-ray of the hip on admission showed advanced degenerative changes on the right hip Evaluated by orthopedics; recommended to continue pain control; plan to consider corticosteroid injection under ultrasound as outpatient Continue PT OT Continue pain control Chronic conditions; Hypertensionon amlodipine/benazepril; on amlodipine and enalapril here Paroxysmal A-fiboff anticoagulation due to preference; COPDcontinue on inhalers 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 It may contain grammatical, syntax or spelling errors. Any formal questions or concerns about the content, text or information contained within the body of this dictation should be directly addressed to the provider for clarification Admission and Anticipated Discharge Date Admission Date: January 06, 2025 Subjective Patient seen and examined at bedside. He is comfortable; not in distress. Reports that the pain is well-controlled on current medication No significant events overnight Review of Systems Review of Systems: All systems reviewed & are unremarkable except as noted in Subjective Physical Exam Physical Exam: GENERAL: Slightly uncomfortable, pleasant, no respiratory distress SKIN: Normal color, warm HEENT: Partial alopecia, bespectacled, pink palpebral conjunctivae, no ptosis, moist buccal mucosa NECK : Supple, no tenderness CHEST : Decreased breath sounds, no tenderness HEART : RRR, no obvious murmurs ABDOMEN: no distention, nontender EXTREMITIES : No LE swelling, right hip tenderness, chronic bilateral hand deviation, palpable pulses, no other conspicuous deformities noted NEUROLOGIC : Coherent, no facial asymmetry, no other gross focality Results & Data Results & Data Vital Signs (Past 12 Hours) Vital Signs Temp Pulse Resp BP Pulse Ox O2 Del Method 01/07/25 09:15 83 18 131/69 94 Room Air 01/07/25 08:03 77 17 164/89 H 93 Room Air 01/06/25 23:25 37.3 C 80 16 154/89 H 94 Room Air
[2025-01-07] MEDS: HEPARIN SOD 5,000 UNIT/0.5 ML VIAL SQ SCH (22:13)
--- NOTE | 2025-01-08 04:30 | Communication Note ---
Date of Service: January 08, 2025 Patient with painless hematuria as per RN. Check UA
[2025-01-08 08:49] LABS: Appearance Urine Clear (Clear); Bacteria Urine Automated 1+ (None Seen); Cast Urine Automated 0-2 /lpf (0-2); Epithelial Cell Urine Auto 0-2 /hpf (0-2); Glucose Urine UA Negative (Negative); RBC Urine Automated >20 /hpf (0-2); WBC Urine Automated >50 /hpf (0-5)
--- NOTE | 2025-01-08 10:25 | Orthopedic Progress Note ---
Date of Service January 08, 2025 Assessment & Plan (1) Rheumatoid arthritis flare: Plan: Patient seen in conjunction with Dr. Lopez this morning. He is stable from an orthopedic standpoint. Patient had been scheduled 01/19/2025 for an ultrasound-guided corticosteroid injection into the right hip. He asked if this could be scheduled sooner. Coordinated with office and he was rescheduled for this coming 01/11/2025 however I was notified by the hospitalist that he will not be discharged to rehab until midweek next week, so after coordinating with the patient again, we will reschedule him for the injection on 01/19/2025. We were able to secure an ultrasound guided corticosteroid injection for the right hip this coming Thursday 01/11. Will place in chart. These can be repeated in the future if therapeutic. Patient can be weightbearing as tolerated with the use of a walker. Continue PT and OT. Continue plan for rehab May require periodic narcotic administration to assist with his rheumatoid flares. Has done well with oxycodone. Orthopedics will sign off at this time. Admission and Anticipated Discharge Date Admission Date: January 06, 2025 Supervising Physician Co-Signing Physician Notes I, Dr. Lopez, saw and examined the patient with my PA. I discussed the management with my PA. I reviewed my PAs note and agree with the documented findings and attest to completing the substantive portion of medical decision making and plan of care I developed. Subjective Patient seen in bed this morning. He states that he is doing fine overall. His right hip does not bother him when he is laying down, but he developed severe pain in the right hip anytime he gets up and moves around. The longer he is on his feet the more painful it becomes. Physical Exam Constitutional: Resting comfortably no distress laying in bed. Pleasant. Cardiovascular: Right PT pulse 2+. Musculoskeletal: Right lower extremity: Hip region is nontender to palpation. Able to passively flex the hip to 110 degrees without pain. There is severe pain with internal and external passive manipulation of the hip. Mild pain with passive logroll of the hip. Strength 5/5 with ankle plantarflexion, dorsiflexion, eversion. Neurologic: No sensory deficits right lower extremity to light touch. Results & Data Vital Signs (Past 12 Hours) Vital Signs Temp Pulse Resp BP Pulse Ox O2 Del Method 01/08/25 07:51 98.1 F 75 18 138/87 94 Room Air 01/07/25 23:21 98.4 F 77 16 129/81 97 Room Air Laboratory Results 01/08/25 08:10 Urine Culture - Pending Urine,Clean Catch 01/08/25 08:10 Urine Color [place] Urine Appearance Clear Urine pH 6.0 Ur Specific [place] 1.014 Urine Protein 1+ H Urine Glucose (UA) Negative Urine Ketones 1+ H Urine Blood 3+ H Urine Nitrite Negative Urine Bilirubin Negative Urine Urobilinogen Negative Ur Leukocyte Esterase 3+ H Urine WBC (Auto) >50 H Urine RBC (Auto) >20 H U Hyaline Cast (Auto) 0-2 U Epithel Cells (Auto) 0-2 Urine Bacteria (Auto) 1+ H Urine Comment Diagnostic Findings Femur X-Ray 01/06/25 18:48 2 views right femur No comparison Impression: Advanced degenerative changes of the right hip with flattening of the weightbearing articular surface of the femoral head. Soft tissue density seen within the right hip joint space suggesting an effusion within same. No acute osseous pathology. Electronically signed by Jose Alejandro Lockwood 01-06-2025 8:16 PM Pelvis X-Ray 01/06/25 18:48 Single frontal view of the pelvis No comparison Impression No acute fracture dislocations. Advanced degenerative changes of the right hip. Moderate left hip osteoarthritis Electronically signed by Jose Alejandro Lockwood 01-06-2025 8:11 PM Lumbar Spine X-Ray 01/06/25 18:49 5 images of the lumbar spine No comparison Impression No acute osseous pathology. Multilevel degenerative changes of the lumbar spine with interspace narrowing at essentially every level. Electronically signed by Jose Alejandro Lockwood 01-06-2025 8:16 PM
--- NOTE | 2025-01-08 13:03 | Hospitalist Progress Note ---
Date of Service January 08, 2025 Assessment & Plan (1) Hip pain, right: Plan: Advanced R hip osteoarthritis likely causing hip pain Rheumatoid arthritis flareup Patient presented to the hospital with worsening right hip pain X-ray of the hip on admission showed advanced degenerative changes on the right hip Evaluated by orthopedics; recommended to continue pain control; plan to consider corticosteroid injection under ultrasound as outpatient; Discussed with orthopedic PA; patient is scheduled for outpatient corticosteroid injection on 01/19. Plan is for patient to go to rehab and follow-up for injection with orthopedic as outpatient. Continue PT OT Continue pain control Possible UTIurinalysis suggestive of Infection; follow-up on cultures; started on empiric ceftriaxone. 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 It may contain grammatical, syntax or spelling errors. Any formal questions or concerns about the content, text or information contained within the body of this dictation should be directly addressed to the provider for clarification Admission and Anticipated Discharge Date Admission Date: January 06, 2025 Subjective Patient seen and examined at bedside. He reports pain on his right hip intermittently; more on walking/exertion. Denies fever, chills, chest pain or shortness of breath Review of Systems Review of Systems: All systems reviewed & are unremarkable except as noted in Subjective Physical Exam Physical Exam: GENERAL: Slightly uncomfortable, pleasant, no respiratory distress SKIN: Normal color, warm HEENT: Partial alopecia, bespectacled, pink palpebral conjunctivae, no ptosis, moist buccal mucosa NECK : Supple, no tenderness CHEST : Decreased breath sounds, no tenderness HEART : RRR, no obvious murmurs ABDOMEN: no distention, nontender EXTREMITIES : No LE swelling, right hip tenderness, chronic bilateral hand deviation, palpable pulses, no other conspicuous deformities noted NEUROLOGIC : Coherent, no facial asymmetry, no other gross focality Results & Data Results & Data Vital Signs (Past 12 Hours) Vital Signs Temp Pulse Resp BP Pulse Ox O2 Del Method 01/08/25 07:51 36.7 C 75 18 138/87 94 Room Air
[2025-01-08] MEDS: cefTRIAXone SODIUM 2,000 MG/50 ML BAG IV SCH (14:00)
[2025-01-08] MEDS: HYDROCORTISONE 1% CRM 30 GM TUBE EXT SCH (23:43)
[2025-01-09] MEDS: KETOROLAC TROMETHAMINE 15 MG/ML VIAL IV PRN (06:09)
--- NOTE | 2025-01-09 12:55 | Hospitalist Progress Note ---
Date of Service January 09, 2025 Assessment & Plan (1) Hip pain, right: Plan: Advanced R hip osteoarthritis likely causing hip pain Rheumatoid arthritis flareup Patient presented to the hospital with worsening right hip pain X-ray of the hip on admission showed advanced degenerative changes on the right hip Evaluated by orthopedics; recommended to continue pain control; plan to consider corticosteroid injection under ultrasound as outpatient; Discussed with orthopedic PA; patient is scheduled for outpatient corticosteroid injection on 01/19. Plan is for patient to go to rehab and follow-up for injection with orthopedic as outpatient. Continue PT OT Continue pain control Possible UTIurinalysis suggestive of Infection; cx pending; started on empiric ceftriaxone. 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 It may contain grammatical, syntax or spelling errors. Any formal questions or concerns about the content, text or information contained within the body of this dictation should be directly addressed to the provider for clarification Admission and Anticipated Discharge Date Admission Date: January 06, 2025 Subjective No significant change in clinical condition. Continues to report hip pain; lying in the bed with hip flexion Review of Systems Review of Systems: All systems reviewed & are unremarkable except as noted in Subjective Physical Exam Physical Exam: GENERAL: pleasant, SKIN: Normal color, warm HEENT: Partial alopecia, bespectacled, pink palpebral conjunctivae, no ptosis, moist buccal mucosa NECK : Supple, no tenderness CHEST : Decreased breath sounds, no tenderness HEART : RRR, no obvious murmurs ABDOMEN: no distention, nontender EXTREMITIES : No LE swelling, right hip tenderness, chronic bilateral hand deviation, palpable pulses, no other conspicuous deformities noted NEUROLOGIC : Coherent, no facial asymmetry, no other gross focality Results & Data Results & Data Vital Signs (Past 12 Hours) Vital Signs Temp Pulse Resp BP Pulse Ox O2 Del Method 01/09/25 07:30 Room Air 01/09/25 07:15 36.7 C 86 18 123/76 95 Room Air
[2025-01-09] MEDS: CALCIUM CARBONATE 500 MG CHEWABLE TAB PO PRN (20:50)
--- NOTE | 2025-01-10 08:51 | Hospitalist Progress Note ---
Date of Service January 10, 2025 Assessment & Plan (1) Hip pain, right: Plan: Advanced R hip osteoarthritis likely causing hip pain Rheumatoid arthritis flareup Patient presented to the hospital with worsening right hip pain X-ray of the hip on admission showed advanced degenerative changes on the right hip Evaluated by orthopedics; recommended to continue pain control; plan to consider corticosteroid injection under ultrasound as outpatient; Discussed with orthopedic PA; patient is scheduled for outpatient corticosteroid injection on 01/19. Plan is for patient to go to rehab and follow-up for injection with orthopedic as outpatient. Discussed with patient's son over the phone on 01/09. 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 It may contain grammatical, syntax or spelling errors. Any formal questions or concerns about the content, text or information contained within the body of this dictation should be directly addressed to the provider for clarification Admission and Anticipated Discharge Date Admission Date: January 06, 2025 Subjective He reports that the pain is well-controlled at this time. Denies any discomfort Review of Systems Review of Systems: All systems reviewed & are unremarkable except as noted in Subjective Physical Exam Physical Exam: GENERAL: pleasant, SKIN: Normal color, warm NECK : Supple, no tenderness CHEST : Decreased breath sounds, no tenderness HEART : RRR, no obvious murmurs ABDOMEN: no distention, nontender EXTREMITIES : No LE swelling, right hip tenderness, chronic bilateral hand sunshine ation, palpable pulses, no other conspicuous deformities noted NEUROLOGIC : Coherent, no facial asymmetry, no other gross focality Results & Data Results & Data Vital Signs (Past 12 Hours) Vital Signs Temp Pulse Resp BP Pulse Ox O2 Del Method 01/10/25 07:10 36.3 C L 66 18 135/74 94 Room Air 01/09/25 21:50 36.7 C 71 16 144/81 H 95 Room Air
[2025-01-10] MEDS: IBUPROFEN 200 MG TAB PO STA (22:49)
[2025-01-11] MEDS: IBUPROFEN 600 MG TAB PO PRN (09:12)
--- NOTE | 2025-01-11 13:07 | Hospitalist Progress Note ---
Date of Service January 11, 2025 Assessment & Plan (1) Hip pain, right: Plan: Advanced R hip osteoarthritis likely causing hip pain Rheumatoid arthritis flareup Patient presented to the hospital with worsening right hip pain X-ray of the hip on admission showed advanced degenerative changes on the right hip Evaluated by orthopedics; recommended to continue pain control; plan to consider corticosteroid injection under ultrasound as outpatient; Discussed with orthopedic PA; patient is scheduled for outpatient corticosteroid injection on 01/19. Plan is for patient to go to rehab and follow-up for injection with orthopedic as outpatient. Discussed with patient's son over the phone on 01/09. 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 It may contain grammatical, syntax or spelling errors. Any formal questions or concerns about the content, text or information contained within the body of this dictation should be directly addressed to the provider for clarification Admission and Anticipated Discharge Date Admission Date: January 06, 2025 Subjective Patient seen and examined at bedside. He is comfortable; not in distress Reports that the pain is well-controlled on ibuprofen and oxycodone. Review of Systems Review of Systems: All systems reviewed & are unremarkable except as noted in Subjective Physical Exam Physical Exam: GENERAL: pleasant, SKIN: Normal color, warm NECK : Supple, no tenderness CHEST : Decreased breath sounds, no tenderness HEART : RRR, no obvious murmurs ABDOMEN: no distention, nontender EXTREMITIES : No LE swelling, right hip tenderness, chronic bilateral hand deviation, palpable pulses, no other conspicuous deformities noted NEUROLOGIC : Coherent, no facial asymmetry, no other gross focality Results & Data Results & Data Vital Signs (Past 12 Hours) Vital Signs Temp Pulse Resp BP Pulse Ox O2 Del Method 01/11/25 11:59 36.6 C 80 17 115/68 95 Room Air 01/11/25 08:00 36.5 C 77 16 136/75 98 Room Air 01/11/25 07:25 Room Air
--- NOTE | 2025-01-12 10:26 | Orthopedic Progress Note ---
Date of Service January 12, 2025 Assessment & Plan (1) Rheumatoid arthritis flare: Plan: Stable for discharge to SNF from an orthopedic standpoint. Patient had been scheduled 01/19/2025 for an ultrasound-guided corticosteroid injection into the right hip. These can be repeated in the future if therapeutic. Patient can be weightbearing as tolerated with the use of a walker. Continue PT and OT. Continue plan for rehab (SNF at [facility]); anticipated D/c there tomorrow May require periodic narcotic administration to assist with his rheumatoid flares. Has done well with oxycodone. Orthopedics will sign off at this time. Admission and Anticipated Discharge Date Admission Date: January 06, 2025 Subjective This 79-year-old male seen today for follow-up of of right hip pain. Patient is scheduled to be seen in our clinic for an ultrasound-guided right hip intra- articular steroid injection on 01/[address] Reyna. PT/OT has not cleared patient to be discharged home. They and his son are recommending that he be sent somewhere for rehab. Case management has placed an order for the patient to go to [facility]. Anticipated discharge to [facility] is tomorrow. Patient states that upon discharge he may also elect to do in-home PT/OT for additional time. Currently patient denies chest pain, shortness of breath, fever, chills, sweats, nausea, vomiting, diarrhea or difficulty voiding. Review of Systems Review of Systems: All systems reviewed & are unremarkable except as noted in Subjective Physical Exam Physical Exam: Right hip: Patient is able to perform active straight leg raise test. He is able to actively dorsi and plantarflex his foot. He tolerates passive hip flexion to 80 degrees. He feels discomfort with light passive internal and external hip rotation. He also has a somewhat discomfort with logroll testing. Otherwise he is neurovascularly intact. Results & Data Vital Signs (Past 12 Hours) Vital Signs Temp Pulse Resp BP Pulse Ox O2 Del Method 01/12/25 08:00 37 C 90 18 139/77 94 Room Air 01/11/25 22:25 36.5 C 58 L 18 157/75 H 97 Room Air Diagnostic Findings Laboratory Results WBC 8.94 K/ul (4.8-10.8) 01/06/25 18:40 RBC 4.98 M/uL (4.70-6.10) 01/06/25 18:40 Hgb 15.7 g/dl (14.0-18.0) 01/06/25 18:40 Hct 47.0 % (42.0-52.0) 01/06/25 18:40 MCV 94.4 fL (80.0-100.0) 01/06/25 18:40 MCH 31.5 pg (25.0-34.0) 01/06/25 18:40 MCHC 33.4 g/dL (32.0-36.0) 01/06/25 18:40 RDW Std Deviation 51.3 fL (36.4-46.3) H 01/06/25 18:40 RDW Coeff of Clint 14.7 % (11.5-14.5) H 01/06/25 18:40 Plt Count 244 K/uL (130-400) 01/06/25 18:40 MPV 9.7 fL (9.4-12.4) 01/06/25 18:40 Immature Gran % (Auto) 0.8 % 01/06/25 18:40 Neut % (Auto) 82.4 % 01/06/25 18:40 Lymph % (Auto) 9.1 % 01/06/25 18:40 Barton % (Auto) 6.0 % 01/06/25 18:40 Eos % (Auto) 1.3 % 01/06/25 18:40 Baso % (Auto) 0.4 % 01/06/25 18:40 Neut # (Auto) 7.36 K/uL (1.40-6.50) H 01/06/25 18:40 Lymph # (Auto) 0.81 K/uL (1.20-3.40) L 01/06/25 18:40 Barton # (Auto) 0.54 K/uL (0.11-0.59) 01/06/25 18:40 Eos # (Auto) 0.12 K/uL (0.00-0.50) 01/06/25 18:40 Baso # (Auto) 0.04 K/uL (0.00-0.20) 01/06/25 18:40 Immature Gran # (Auto) 0.07 K/uL (0.01-0.20) 01/06/25 18:40 PT 11.3 Seconds (9.0-12.0) 01/06/25 18:40 INR 1.0 (0.9-1.1) 01/06/25 18:40 APTT 29 Seconds (21-31) 01/06/25 18:40 PTT Ratio 1.1 01/06/25 18:40 Sodium 136 mmol/L (136-145) 01/06/25 18:40 Potassium 4.2 mmol/L (3.5-5.1) 01/06/25 18:40 Chloride 104 mmol/L (98-107) 01/06/25 18:40 Carbon Dioxide 26 mmol/L (21-32) 01/06/25 18:40 Anion Gap 6 (3-11) 01/06/25 18:40 BUN 20 mg/dl (6-23) 01/06/25 18:40 Creatinine 1.18 mg/dl (0.6-1.4) 01/06/25 18:40 Est Cr Clr Drug Dosing Not Reportable 01/06/25 18:40 eGFR 61.99 01/06/25 18:40 BUN/Creatinine Ratio 16.9 (10-20) 01/06/25 18:40 Glucose 83 mg/dl (70-99(Fasting)) 01/06/25 18:40 Calcium 8.9 mg/dl (8.6-10.3) 01/06/25 18:40 Total Bilirubin 0.9 mg/dl (0.2-1.0) 01/06/25 18:40 AST 12 U/L (13-39) L 01/06/25 18:40 ALT 8 U/L (7-52) 01/06/25 18:40 Alkaline Phosphatase 61 U/L (34-104) 01/06/25 18:40 Total Protein 6.3 gm/dl (6.0-8.3) 01/06/25 18:40 Albumin 2.9 gm/dl (3.4-5.0) L 01/06/25 18:40 Globulin 3.4 gm/dl (2.5-4.0) 01/06/25 18:40 Albumin/Globulin Ratio 0.9 (0.9-2) 01/06/25 18:40 Urine Color Mcpherson 01/08/25 08:10 Urine Appearance Clear (Clear) 01/08/25 08:10 Urine pH 6.0 (4.5-7.5) 01/08/25 08:10 Ur Specific Dumas 1.014 (1.000-1.030) 01/08/25 08:10 Urine Protein 1+ (Negative) H 01/08/25 08:10 Urine Glucose (UA) Negative (Negative) 01/08/25 08:10 Urine Ketones 1+ (Negative) H 01/08/25 08:10 Urine Blood 3+ (Negative) H 01/08/25 08:10 Urine Nitrite Negative (Negative) 01/08/25 08:10 Urine Bilirubin Negative (Negative) 01/08/25 08:10 Urine Urobilinogen Negative (Negative) 01/08/25 08:10 Ur Leukocyte Esterase 3+ (Negative) H 01/08/25 08:10 Urine WBC (Auto) >50 /hpf (0-5) H 01/08/25 08:10 Urine RBC (Auto) >20 /hpf (0-2) H 01/08/25 08:10 U Hyaline Cast (Auto) 0-2 /lpf (0-2) 01/08/25 08:10 U Epithel Cells (Auto) 0-2 /hpf (0-2) 01/08/25 08:10 Urine Bacteria (Auto) 1+ (None Seen) H 01/08/25 08:10 Urine Comment 01/08/25 08:10 Impressions Femur X-Ray 01/06/25 18:48 2 views right femur No comparison Impression: Advanced degenerative changes of the right hip with flattening of the weightbearing articular surface of the femoral head. Soft tissue density seen within the right hip joint space suggesting an effusion within same. No acute osseous pathology. Electronically signed by Jose Alejandro Lockwood 01-06-2025 8:16 PM Pelvis X-Ray 01/06/25 18:48 Single frontal view of the pelvis No comparison Impression No acute fracture dislocations. Advanced degenerative changes of the right hip. Moderate left hip osteoarthritis Electronically signed by Jose Alejandro Lockwood 01-06-2025 8:11 PM Lumbar Spine X-Ray 01/06/25 18:49 5 images of the lumbar spine No comparison Impression No acute osseous pathology. Multilevel degenerative changes of the lumbar spine with interspace narrowing at essentially every level. Electronically signed by Jose Alejandro Lockwood 01-06-2025 8:16 PM
--- NOTE | 2025-01-12 11:50 | Hospitalist Progress Note ---
Date of Service January 12, 2025 Assessment & Plan (1) Hip pain, right: Plan: Advanced R hip osteoarthritis likely causing hip pain Rheumatoid arthritis flareup Patient presented to the hospital with worsening right hip pain X-ray of the hip on admission showed advanced degenerative changes on the right hip Evaluated by orthopedics; recommended to continue pain control; plan to consider corticosteroid injection under ultrasound as outpatient; Discussed with orthopedic PA; patient is scheduled for outpatient corticosteroid injection on 01/19. Plan is for patient to go to rehab and follow-up for injection with orthopedic as outpatient. Auth to [facility] is pending through the insurance; they are agreeable for transferring the patient back and forth for the corticosteroid injection on 01/19. Continue PT OT Pain controlled with ibuprofen as needed; also on oxycodone 2.5 mg as needed intermittently. 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 Patient reports that he had been on 15 mg previously and was trying to taper down gradually mild cognitive impairment as per records, patient mentating well past tobacco abuse DVT prophylaxis; heparin DNR/DNI Please note the above document was generated using voice recognition software. It may contain grammatical, syntax or spelling errors. Any formal questions or concerns about the content, text or information contained within the body of this dictation should be directly addressed to the provider for clarification Admission and Anticipated Discharge Date Admission Date: January 06, 2025 Subjective Pending patient seen and examined at bedside. He reports that the pain is currently well-controlled on current medication. He reports that he took oxycod one 5 mg earlier; reported some confusion after; would like to reduce the dose. Review of Systems Review of Systems: All systems reviewed & are unremarkable except as noted in Subjective Physical Exam Physical Exam: GENERAL: pleasant, SKIN: Normal color, warm NECK : Supple, no tenderness CHEST : Decreased breath sounds, no tenderness HEART : RRR, no obvious murmurs ABDOMEN: no distention, nontender EXTREMITIES : No LE swelling, right hip tenderness, chronic bilateral hand deviation, palpable pulses, no other conspicuous deformities noted NEUROLOGIC : Coherent, no facial asymmetry, no other gross focality Results & Data Results & Data Vital Signs (Past 12 Hours) Vital Signs Temp Pulse Resp BP Pulse Ox O2 Del Method 01/12/25 08:00 37 C 90 18 139/77 94 Room Air
[2025-01-13 06:28] LABS: Hematocrit (blood only) 39.6 % (42.0-52.0); Hemoglobin 13.3 g/dl (14.0-18.0); Immature Granulocytes # (auto) 0.15 K/uL (0.01-0.20); Immature Granulocytes % (auto) 1.7 %; Mean Corpuscular Hemoglobin 31.0 pg (25.0-34.0); Mean Corpuscular Volume 92.3 fL (80.0-100.0); Platelet Count 259 K/uL (130-400); RDW Standard Deviation 47.8 fL (36.4-46.3); Red Blood Count 4.29 M/uL (4.70-6.10); White Blood Count 8.78 K/ul (4.8-10.8)
[2025-01-13 06:57] LABS: Anion Gap 6.0 (3-11); Blood Urea Nitrogen 19.0 mg/dl (6-23); Calcium 8.8 mg/dl (8.6-10.3); Carbon Dioxide 26.0 mmol/L (21-32); Chloride 105.0 mmol/L (98-107); Creatinine Clr Calc Pharmacy 57.2 ml/min; Glucose 83.0 mg/dl (70-99(Fasting)); Potassium 4.0 mmol/L (3.5-5.1); Sodium 137.0 mmol/L (136-145)
--- NOTE | 2025-01-13 15:48 | Hospitalist Progress Note ---
Date of Service January 13, 2025 Assessment & Plan (1) Hip pain, right: Plan: Advanced R hip osteoarthritis likely causing hip pain Rheumatoid arthritis flareup Patient presented to the hospital with worsening right hip pain X-ray of the hip on admission showed advanced degenerative changes on the right hip Evaluated by orthopedics; recommended to continue pain control; plan to consider corticosteroid injection under ultrasound as outpatient; Prior attending discussed with orthopedic PA; patient is scheduled for outpatient corticosteroid injection on 01/19. Plan is for patient to go to rehab and follow-up for injection with orthopedic as outpatient. Auth to [facility] is pending through the insurance; they are agreeable for transferring the patient back and forth for the corticosteroid injection on 01/19. Continue PT OT Pain controlled with ibuprofen as needed; also on oxycodone 2.5 mg as needed intermittently. 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 Patient reports that he had been on 15 mg previously and was trying to taper down gradually mild cognitive impairment as per records, patient mentating well past tobacco abuse DVT prophylaxis; heparin DNR/DNI Please note the above document was generated using voice recognition software. It may contain grammatical, syntax or spelling errors. Any formal questions or concerns about the content, text or information contained within the body of this dictation should be directly addressed to the provider for clarification Admission and Anticipated Discharge Date Admission Date: January 06, 2025 Subjective Pending patient seen and examined at bedside. He reports that the pain is currently well-controlled on current medication. Reports eating ok and moving bowels ok. Physical Exam Physical Exam: GENERAL: pleasant, SKIN: Normal color, warm NECK : Supple, no tenderness CHEST : Decreased breath sounds, no tenderness HEART : RRR, no obvious murmurs ABDOMEN: no distention, nontender EXTREMITIES : No LE swelling, right hip tenderness, chronic bilateral hand deviation, palpable pulses, no other conspicuous deformities noted NEUROLOGIC : Coherent, no facial asymmetry, no other gross focality Results & Data Results & Data Vital Signs (Past 12 Hours) Vital Signs Temp Pulse Resp BP BP Pulse Ox O2 Del Method 01/13/25 15:23 37.1 C 68 18 117/69 96 Room Air 01/13/25 08:30 Room Air 01/13/25 07:17 36.6 C 68 18 133/82 96 Room Air
--- NOTE | 2025-01-14 13:22 | Hospitalist Progress Note ---
Date of Service January 14, 2025 Assessment & Plan (1) Hip pain, right: Plan: Advanced R hip osteoarthritis likely causing hip pain Rheumatoid arthritis flareup Patient presented to the hospital with worsening right hip pain X-ray of the hip on admission showed advanced degenerative changes on the right hip Evaluated by orthopedics; recommended to continue pain control; plan to consider corticosteroid injection under ultrasound as outpatient; Prior attending discussed with orthopedic PA; patient is scheduled for outpatient corticosteroid injection on 01/19. Plan is for patient to go to rehab and follow-up for injection with orthopedic as outpatient. Auth to [facility] is pending through the insurance; they are agreeable for transferring the patient back and forth for the corticosteroid injection on 01/19. Continue PT OT Pain controlled with ibuprofen as needed; also on oxycodone 2.5 mg as needed intermittently. 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 Patient reports that he had been on 15 mg previously and was trying to taper down gradually mild cognitive impairment as per records, patient mentating well past tobacco abuse DVT prophylaxis; heparin DNR/DNI Please note the above document was generated using voice recognition software. It may contain grammatical, syntax or spelling errors. Any formal questions or concerns about the content, text or information contained within the body of this dictation should be directly addressed to the provider for clarification Admission and Anticipated Discharge Date Admission Date: January 06, 2025 Subjective Pending patient seen and examined at bedside. He reports that the pain is currently well-controlled on current medication. Reports eating ok and moving bowels ok. Physical Exam Physical Exam: GENERAL: pleasant, SKIN: Normal color, warm NECK : Supple, no tenderness CHEST : Decreased breath sounds, no tenderness HEART : RRR, no obvious murmurs ABDOMEN: no distention, nontender EXTREMITIES : No LE swelling, right hip tenderness, chronic bilateral hand deviation, palpable pulses, no other conspicuous deformities noted NEUROLOGIC : Coherent, no facial asymmetry, no other gross focality Results & Data Results & Data Vital Signs (Past 12 Hours) Vital Signs Temp Pulse Resp BP Pulse Ox O2 Del Method 01/14/25 08:00 Room Air 01/14/25 07:12 36.5 C 58 L 16 130/64 97 Room Air
--- NOTE | 2025-01-15 14:52 | Hospitalist Progress Note ---
Date of Service January 15, 2025 Assessment & Plan (1) Hip pain, right: Plan: Advanced R hip osteoarthritis likely causing hip pain Rheumatoid arthritis flareup Patient presented to the hospital with worsening right hip pain X-ray of the hip on admission showed advanced degenerative changes on the right hip Evaluated by orthopedics; recommended to continue pain control; plan to consider corticosteroid injection under ultrasound as outpatient; Prior attending discussed with orthopedic PA; patient is scheduled for outpatient corticosteroid injection on 01/19. Plan is for patient to go to rehab and follow-up for injection with orthopedic as outpatient. Auth to [facility] is pending through the insurance; they are agreeable for transferring the patient back and forth for the corticosteroid injection on 01/19. Continue PT OT Pain controlled with ibuprofen as needed; also on oxycodone 2.5 mg as needed intermittently. 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 Patient reports that he had been on 15 mg previously and was trying to taper down gradually mild cognitive impairment as per records, patient mentating well past tobacco abuse DVT prophylaxis; heparin DNR/DNI Please note the above document was generated using voice recognition software. It may contain grammatical, syntax or spelling errors. Any formal questions or concerns about the content, text or information contained within the body of this dictation should be directly addressed to the provider for clarification Admission and Anticipated Discharge Date Admission Date: January 06, 2025 Subjective Pending patient seen and examined at bedside. He reports that the pain is currently well-controlled on current medication. Reports eating ok and moving bowels ok. Physical Exam Physical Exam: GENERAL: pleasant, SKIN: Normal color, warm NECK : Supple, no tenderness CHEST : Decreased breath sounds, no tenderness HEART : RRR, no obvious murmurs ABDOMEN: no distention, nontender EXTREMITIES : No LE swelling, right hip tenderness, chronic bilateral hand deviation, palpable pulses, no other conspicuous deformities noted NEUROLOGIC : Coherent, no facial asymmetry, no other gross focality Results & Data Results & Data Vital Signs (Past 12 Hours) Vital Signs Temp Pulse Resp BP Pulse Ox O2 Del Method 01/15/25 08:32 36.5 C 55 L 16 134/74 97 Room Air 01/15/25 07:15 Room Air
[2025-01-15 23:43] VITALS: O2SAT 95
[2025-01-16 08:01] VITALS: RESP 18; TEMP 98.1
--- NOTE | 2025-01-16 11:06 | Discharge Summary ---
Date of Service January 16, 2025 Admission HPI Per Admitting Provider History obtained from patient and records. Medical history significant for hypertension, hyperlipidemia, PAF off anticoagulation due to patient preference, PVD, CVA, COPD, steroid-dependent rheumatoid arthritis, bilateral hip osteoarthritis, MGUS, mild cognitive impairment as per records, mood disorder, past tobacco abuse. 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 Patient has chronic right hip pain attributed to advanced osteoarthritis for a number of years now. Patient noted worsening right hip pain especially on ambulation and standing up over the last few days. No trauma. No chest pain, no SOB. Trouble ambulating at home. Patient family currently looking for possible placement at a nursing facility close to [place] where family resides. Patient increasingly unable to care for self at home due to disability from arthritis. 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 Admission Exam Per Admitting Provider GENERAL: Slightly uncomfortable, pleasant, no respiratory distress SKIN: Normal color, warm HEENT: Partial alopecia, bespectacled, pink palpebral conjunctivae, no ptosis, moist buccal mucosa NECK : Supple, no tenderness CHEST : Decreased breath sounds, no tenderness HEART : RRR, no obvious murmurs ABDOMEN: no distention, nontender EXTREMITIES : No LE swelling, right hip tenderness, chronic bilateral hand deviation, palpable pulses, no other conspicuous deformities noted NEUROLOGIC : Coherent, no facial asymmetry, no other gross focality Principal Diagnosis Advanced R hip osteoarthritis likely causing hip pain Rheumatoid arthritis flareup Discharge Exam GENERAL: pleasant, SKIN: Normal color, warm NECK : Supple, no tenderness CHEST : Decreased breath sounds, no tenderness HEART : RRR, no obvious murmurs ABDOMEN: no distention, nontender EXTREMITIES : No LE swelling, right hip tenderness, chronic bilateral hand deviation, palpable pulses, no other conspicuous deformities noted NEUROLOGIC : Coherent, no facial asymmetry, no other gross focality Discharge Data Allergies Allergy/AdvReac Type Severity Reaction Status Date / Time No Known Allergies Allergy Verified 01/06/25 19:43 Consultations 01/06/25 19:33 ED Decision to Admit Stat 01/06/25 20:58 Consult Orthopedic Surgery Routine Hospital Course (1) Hip pain, right: Advanced R hip osteoarthritis likely causing hip pain Rheumatoid arthritis flareup Patient presented to the hospital with worsening right hip pain X-ray of the hip on admission showed advanced degenerative changes on the right hip Evaluated by orthopedics; recommended to continue pain control; plan to consider corticosteroid injection under ultrasound as outpatient; Prior attending discussed with orthopedic PA; patient is scheduled for outpatient corticosteroid injection on 01/19. Plan is for patient to go to rehab and follow-up for injection with orthopedic as outpatient. Auth to [facility] is pending through the insurance; they are agreeable for transferring the patient back and forth for the corticosteroid injection on 01/19. Continue PT OT Utilize oxycodone 2.5 mg as needed intermittently. 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 Patient reports that he had been on 15 mg previously and was trying to taper down gradually mild cognitive impairment as per records, patient mentating well past tobacco abuse DVT prophylaxis; heparin DNR/DNI [facility] with following instructions at the point of discharge: Follow-up with your primary care physician within a week time and likely you will need labs CBC/CMP/magnesium/phosphorus. Follow-up with orthopedics on 01/19 for further evaluation/possible corticosteroid injection to your right hip. While utilizing opiates for pain management, utilize [id number] laxative/stool softener with a goal of 1-2 bowel movements a day. Take your medications as prescribed. Please make sure that you are able to get your medications today by calling your pharmacy before you leave the hospital so that your treatment continuity is not broken. Please note the above document was generated using voice recognition software. It may contain grammatical, syntax or spelling errors. Any formal questions or concerns about the content, text or information contained within the body of this dictation should be directly addressed to the provider for clarification [facility] Attestation I certify that this patient is under my care and that I, or a physicians railway yard assistant working with me, had a face to-face encounter that meets the [place] [facility] [id number] encounter requirements with this patient. The encounter with the patient was in whole, or in part, for the following medical condition, which is the primary reason for home health care (list medical condition): I certify that, based on my findings, the following services are medically ne cessary home health services: My clinical findings support the need for the above services because: Further, I certify that my clinical findings support that this patient is homebound (i.e. absences from home require considerable and taxing effort and are for medical reasons or episcopal services or infrequently or of short duration when for other reasons) because: Certification for Home Health Services: Based on the above findings, I certify that this patient is confined to the home and needs intermittent senior living care, physical therapy and/or speech therapy or continues to need occupational therapy. The patient is under my care, and I have initiated the establishment of the plan of care. This patient will be followed by a physician who will periodically review the plan of care. Total Time Total Time Spent Total Time Spent (In Minutes): 35 Discharge Plan Discharge Items Patient Disposition: Transfer Residential Fac Reason For Visit: R HIP PAIN, PLACEMENT Discharge Diagnosis: Advanced R hip osteoarthritis likely causing hip pain Rheumatoid arthritis flareup Condition on Discharge: Good Activity: Resume your previous activity Non-emergency contact: Primary Care Provider Call non-emergency contact if: you have any medication questions and your symptoms worsen Follow-up/Referrals: Guillermo Reyna MD [Surgeon] - 01/19/25 12:45 pm William Joseph MD [Primary Care Provider] - Diet: Heart Healthy [place] Attending Provider Instructions: Follow-up with your primary care physician within a week time and likely you w ill need labs CBC/CMP/magnesium/phosphorus. Follow-up with orthopedics on 01/19 for further evaluation/possible corticosteroid injection to your right hip. While utilizing opiates for pain management, utilize [id number] laxative/stool softener with a goal of 1-2 bowel movements a day. Take your medications as prescribed. Please make sure that you are able to get your medications today by calling your pharmacy before you leave the hospital so that your treatment continuity is not broken. Addtl Mortgage Or Loan Underwriter Provider Instructions: Orthopedic discharge instructions Right hip weightbearing as tolerated with the use of a walker. Physical therapy and Occupational Therapy. Pain medication per primary service. Would likely benefit from intermittent administration of oxycodone for rheumatoid flares. You have been scheduled for an outpatient ultrasound-guided intra-articular right hip injection 01/19/25 12:45 arrival 1:00 appointment. Pending Studies at Discharge: No Stand-Alone Forms: My [facility] Skilled Items Patient informed of condition?: Yes DNR: Yes Discharge Level of Care: Skilled Communicable Disease: No Discharge Prognosis: Stable Lines: None Urinary Catheter: No Medications and DC Order Prescriptions: New oxycodone 5 mg Tablet 2.5 mg PO Q6H PRN (Reason: pain) 5 Days Qty: 10 0RF calcium carbonate [Tums] 200 mg calcium (500 mg) Tablet,Chewable 500 mg PO BID PRN (Reason: dyspepsia) Qty: 30 0RF Continued cyanocobalamin (vitamin B-12) 1,000 mcg/mL solution 1,000 mcg IM MONTHLY amlodipine-benazepril 2.5-10 mg capsule 1 cap PO QAM cholecalciferol (vitamin D3) [Vitamin D3] 50 mcg (2,000 unit) Capsule 25 mcg PO .EVERY 2-3 DAYS Rx Instructions: 1/2 tablet dose folic acid 1 mg Tablet 1 mg PO QAM fluticasone propion-salmeterol 250-50 mcg/dose blister with device 1 inh INHALATION [facility] Changed prednisone 10 mg tablet 5 mg PO DAILY PRN (Reason: RA FLARES) Qty: 0 0RF Discharge Orders: Discharge Order (Routine); Ordered 01/16/25 Ordered By: Inder Sheth Admission Data Admit Date/Time: 01/06/25 20:22 Attending Provider: Inder Sheth Admit Provider: Heriberto Maciel Primary Care Provider: William Joseph Other Providers: Heriberto Maciel; Neal Lopez; [facility]; [facility]; [place]
[2025-01-16 11:18] VITALS: BP 133/82; PULSE 58
== END 2025-01-16 13:18 | DRG 554 ==
LOC: ED 18:06 → SUATTDRO 20:22 → EDINP 20:22 → 3E 23:48